=== PATIENT | female | born 1950 | race Caucasian/White ===

== ENCOUNTER 2022-12-29 17:58 | Outpatient (RCR) | payer MEDICARE, BC, SELFPAY | END 2023-01-23 23:59 | disposition home or self-care (01) | LOC: MM 17:58 | PROVIDERS: PCP Internal Medicine; Visit Provider Internal Medicine | DX: Z51.81 Encounter for therapeutic drug level monitoring (principal); Z79.01 Long term (current) use of anticoagulants; I48.91 Unspecified atrial fibrillation | CPT/HCPCS: 85610; G0463 ==

== ENCOUNTER 2023-01-01 13:20 | Outpatient (OUT) | payer MEDICARE, BC, SELFPAY ==
--- NOTE | 2023-01-01 13:45 | PM.CN ---
Consult Note: HPI Data of Consult Patient: known to practice within the last 3 years Consult date: 01/01/23 Requesting Physician: TRAVIS NELSON NP Primary Care Provider: CASSANDRA KING Consult Narrative Reason for consult: knee pain Narrative: Patient is here for f/u of bilat durolane injections done on 12/16/22. She received 10% relief of pain but increased function. No new sensorimotor sx or new bowel or bladder issues. Medication regimen is controlling pain and assisting with ability to complete ADLs. We discussed the GNB procedure. She would like to further research this at home and call if wanting to schedule. She does not want ortho referral at this time d/t not wanting surgery. cc:: CC: TRAVIS NELSON NP Review of Systems ROS Status of ROS 10 or more systems reviewed and unremarkable except as noted in history and below Musculoskeletal Reports: extremity pain Exam Constitutional Documenting provider has reviewed patient's vital signs: yes Common normals: no apparent distress, oriented x3, healthy appearing, alert and well nourished General appearance: cooperative, comfortable and well developed Orientation/consciousness: Yes awake, Yes oriented to person, Yes oriented to place and Yes oriented to time HENMT Common normals: normocephalic, nasal mucous membranes and turbinates normal and moist oral mucous membranes Respiratory Common normals: normal respiratory effort, no retractions and no use of accessory muscles Effort & inspection: able to speak in complete sentences and symmetric chest movement Extremity Common normals: normal to inspection, normal capillary refill and no pedal edema Other: bilat knee enlargement with crepitus and pain with ROM muscle strength 5/5 bilat with intact sensation bilat LE Assessment and Plan Assessment and Plan (1) Knee osteoarthritis:
== END 2023-01-01 13:21 ==
LOC: PM 13:20
PROVIDERS: PCP Family Medicine; Visit Provider Nurse Practitioner
DX: M17.0 Bilateral primary osteoarthritis of knee (principal)
CPT/HCPCS: G0463

== ENCOUNTER 2023-01-28 15:32 | Outpatient (RCR) | payer MEDICARE, BC, SELFPAY | END 2023-02-23 16:48 | disposition home or self-care (01) | LOC: MM 15:32 | PROVIDERS: PCP Internal Medicine; Visit Provider Internal Medicine | DX: Z51.81 Encounter for therapeutic drug level monitoring (principal); Z79.01 Long term (current) use of anticoagulants; I48.91 Unspecified atrial fibrillation | CPT/HCPCS: 85610; G0463 ==

== ENCOUNTER 2023-02-24 09:01 | Outpatient (RCR) | payer MEDICARE, BC, SELFPAY | END 2023-03-26 17:19 | disposition home or self-care (01) | LOC: MM 09:01 | PROVIDERS: Visit Provider Internal Medicine | DX: Z51.81 Encounter for therapeutic drug level monitoring (principal); Z79.01 Long term (current) use of anticoagulants; I48.91 Unspecified atrial fibrillation | CPT/HCPCS: 85610; G0463 ==

== ENCOUNTER 2023-03-25 11:02 | Outpatient (OUT) | payer MEDICARE, BC, SELFPAY ==
--- NOTE | 2023-03-25 11:11 | PM.CN ---
Consult Note: HPI Data of Consult Patient: known to practice within the last 3 years Requesting Physician: Perla Oreilly NP Primary Care Provider: Non-Staff Physician, Consult Narrative Reason for consult: bilateral knee pain Narrative: Leslie Mathis a pleasant 72 year old female with a history of osteoarthritis of bilateral knees, previously benefitted from injection therapy with Dr Mendenhall but no longer effective, presents for follow up on bialteral knee pain. Previously discussed bilateral genicular nerve blocks and RFAs and would like to proceed with these procedures. cc:: CC: Perla Oreilly NP Review of Systems ROS Status of ROS 10 or more systems reviewed and unremarkable except as noted in history and below Musculoskeletal Reports: joint pain Meds Home Medications and Allergies Home Medications Medication Instructions Recorded Confirmed Type acetaminophen 500 mg tablet 500 mg PO BID PRN pain 01/01/23 01/01/23 History (Tylenol Extra Strength) ascorbic acid (vitamin C) 500 mg 500 mg PO DAILY 01/01/23 01/01/23 History tablet calcium 100 mg capsule mg PO 01/01/23 History carvedilol 12.5 mg tablet 12.5 mg PO BID 01/01/23 01/01/23 History diltiazem HCl 240 mg capsule,24 240 mg PO DAILY 01/01/23 01/01/23 History hr,extended release ferrous sulfate 325 mg (65 mg 325 mg PO DAILY 01/01/23 01/01/23 History iron) tablet (iron) furosemide 20 mg tablet (Lasix) 20 mg PO BID 01/01/23 01/01/23 History hydrocodone 5 mg-acetaminophen 325 1 tab PO BID 01/01/23 01/01/23 History mg tablet ibuprofen 800 mg tablet 800 mg PO TID 01/01/23 01/01/23 History metaxalone 800 mg tablet 800 mg PO TID 01/01/23 01/01/23 History metformin 500 mg tablet 500 mg PO DAILY 01/01/23 01/01/23 History paroxetine HCl 20 mg tablet 20 mg PO DAILY 01/01/23 01/01/23 History warfarin 5 mg tablet 5 mg PO DAILY 01/01/23 01/01/23 History Allergies Allergy/AdvReac Type Severity Reaction Status Date / Time Penicillins Allergy Verified 01/01/23 14:22 Exam Constitutional Documenting provider has reviewed patient's vital signs: yes Common normals: no apparent distress, oriented x3, healthy appearing, alert and well nourished General appearance: cooperative HENMT Common normals: normocephalic, hearing grossly normal bilaterally and moist oral mucous membranes Head and scalp: normocephalic Eye Common normals: PERRL Pupil: PERRL Neck & C-Spine Common normals: full ROM General: normal visual inspection Chest Common normals: inspection of chest normal Respiratory Common normals: normal respiratory effort, no retractions and no use of accessory muscles Back & Pelvis Thoracic spine/upper back: normal to inspection and thoracic ROM normal Lumbar spine/lower back: normal to inspection, pain with ROM and straight leg raise negative bilaterally Sacroiliac joints: SI joints normal Other: positive bilateral facet loading Extremity Common normals: no calf tenderness and no pedal edema Right lower extremity: knee joint (enlarged, pain with weight bearing, limited ROM, weakness) Left lower extremity: knee joint (enlarged, pain with weight bearing, limited ROM, weakness) Neuro Common normals: oriented x3, CN's II-XII intact bilaterally, moves all extremities, no focal motor deficits, no sensory deficits noted and deep tendon reflexes 2+ bilaterally Sensorium/orientation: alert Motor exam: no movement abnormalities noted and strength abnormal (4/5 in BLE) Psych Common normals: mental status grossly normal, thought process normal, cooperative, affect normal, speech normal and activity/motor behavior normal Speech: normal speech Thought process: normal thought process Results Additional Findings Additional findings: The patient has had over 3 months of moderate to severe bilateral knee pain with functional impairment and inadequate response to conservative care including NSAIDS (unless there are contraindication such as concurrent blood thinners), multiple oral or topical pain medications, and home exercise program/physical therapy.? Patient has completed >6 weeks of guided home exercise program and/or formal physical therapy program without relief of their symptoms.? The Oswestry Disability Index was completed, and the patient scored a 22%.? The patient noted the following:?? moderate pain, pain with lifting, pain that prevents her from standing for more than 30 minutes, pain that interferes with travel Assessment and Plan Assessment and Plan (1) Knee osteoarthritis: Assessment and Plan: history of bilateral knee injections with Dr Mendenhall stopping working We discussed the risks and benefits of the procedure with the patient, and we are NOT planning on using sedation as outlined in the guidelines from Medicare unless there is a documented reason that sedation would be strongly recommended.?? The procedure will be completed with fluoroscopic guidance.? (2) Muscle spasm: (3) Obesity: Assessment and Plan: The patient was counseled that proper dietary changes and consistent participation in a home exercise plan can lead to weight loss. Weight loss can help to improve functionality in patients with chronic pain.? Plan bilateral genicular nerve blocks under fluoroscopy, if provides >80% pain relief and functional improvement will proceed with thermal RFA PT for strengthening and bilateral knee pain, hoping for functional improvement and increase in strength in combination with procedure continue home exercise plan continue skelaxin 800mg 1/2 tab HS continue prn motrin use f/u after procedure
== END 2023-03-25 11:03 | disposition home or self-care (01) ==
LOC: PM 11:03
PROVIDERS: Visit Provider Nurse Practitioner
DX: M17.9 Osteoarthritis of knee, unspecified (principal)
CPT/HCPCS: G0463

== ENCOUNTER 2023-03-27 08:31 | Outpatient (RCR) | payer MEDICARE, BC, SELFPAY | END 2023-04-24 16:36 | disposition home or self-care (01) | LOC: MM 08:31 | PROVIDERS: PCP Family Medicine; Visit Provider Internal Medicine | DX: Z51.81 Encounter for therapeutic drug level monitoring (principal); Z79.01 Long term (current) use of anticoagulants; I48.91 Unspecified atrial fibrillation | CPT/HCPCS: 85610; G0463 ==

== ENCOUNTER 2023-03-27 12:37 | Outpatient (RCR) | payer MEDICARE, BC, SELFPAY | END 2023-04-21 13:50 | disposition home or self-care (01) | LOC: PT 12:37 | PROVIDERS: PCP Family Medicine; Visit Provider Anesthesiology | DX: M17.0 Bilateral primary osteoarthritis of knee (principal); R26.89 Other abnormalities of gait and mobility; R26.9 Unspecified abnormalities of gait and mobility | CPT/HCPCS: 97110; 97161 ==

== ENCOUNTER 2023-04-01 10:54 | Outpatient (OUT) | payer MEDICARE, BC, SELFPAY ==
--- NOTE | 2023-04-01 10:55 | MM_ITS ---
Patient: MESFIN LOPEZ Exam Date: 04/01/2023 : 1950 Gender:F Ordering : DR CASSANDRA KING M.D. Admission #: [id number] Family : Order #: [id number] CLICK HERE TO VIEW EXAM RADIOLOGY REPORT PROCEDURE: MM TOMOSYNTHESIS SCREENING BI COMPARISON: MG MAMM SCREEN 3D JACQUELINE CAD, 01/08/2022. MG MAMM SCREEN 3D JACQUELINE CAD, 10/09/2020. INDICATIONS: Screening mammogram Z12.31 Calculator Name NCI Breast Cancer Risk Assessment Tool 5 Year Breast Cancer Risk 3.80% Lifetime Breast Cancer Risk 10.20% Personal Breast Cancer No Personal Ovarian Cancer No Treatments None Family Cancers Mother with breast cancer at age ~80. LOCATION: [facility] BREAST COMPOSITION: Scattered areas fibroglandular density. FINDINGS: DIAGNOSTIC CATEGORY 1--NEGATIVE. NO CHANGE FROM COMPARISON ASSESSMENT. Scattered benign-appearing calcifications are present. Scattered benign-appearing lymph nodes are present. RIGHT BREAST: No significant suspicious finding. LEFT BREAST: No significant suspicious finding. RECOMMENDATIONS: ROUTINE MAMMOGRAM AND CLINICAL EVALUATION IN 12 MONTHS. PLEASE NOTE: A NORMAL MAMMOGRAM DOES NOT EXCLUDE THE POSSIBILITY OF BREAST CANCER. A CLINICALLY SUSPICIOUS PALPABLE LUMP SHOULD BE BIOPSIED. Dictated by: Terry Pro MD on 04/01/2023 at 11:57 Approved by: Terry Pro MD on 04/01/2023 at 11:58
== END 2023-04-01 10:55 | disposition home or self-care (01) ==
LOC: MAMMO 10:54
PROVIDERS: PCP Family Medicine; Visit Provider Family Medicine
DX: Z12.31 Encounter for screening mammogram for malignant neoplasm of breast (principal); Z80.3 Family history of malignant neoplasm of breast
CPT/HCPCS: 77063; 77067

== ENCOUNTER 2023-04-14 09:30 | Day surgery (SDC) | payer MEDICARE, BC, SELFPAY ==
[2023-04-14 09:58] LABS: INR 2.67; Prothrombin Time 26.8 sec (9.0-11.6)
[2023-04-14 10:30] VITALS: BP 122/82; PULSE 89; RESP 16; TEMP 36.1; O2SAT 97
[2023-04-14 11:19] VITALS: RESP 20
[2023-04-14 11:23] VITALS: BP 119/75; PULSE 76; O2SAT 93
[2023-04-14] MEDS: BUPIVACAINE HCL 0.25% PF 25 MG/10 ML VIAL 8 ML INJ (11:24)
[2023-04-14 11:25] VITALS: BP 126/68; PULSE 76; O2SAT 95
--- NOTE | 2023-04-14 11:34 | P.ON_ITS ---
Date of procedure: 04/14/23 Pre-op diagnosis: Bilateral knee osteoarthritis Post-op diagnosis: same as pre-op Procedure: Bilateral Genicular Nerve Block PREOPERATIVE DIAGNOSIS: Pain secondary to knee pain, osteoarthritis, osteoarthrosis/degenerative joint disease. POSTOPERATIVE DIAGNOSIS--the same. SOLUTION USED FOR INJECTION: Marcaine 0.25%. IMMEDIATE COMPLICATIONS: None. PROCEDURE: After informed consent was obtained from the patient, brought to the OR, placed in the supine position. Skin overlying the area was prepped and draped in sterile fashion. Subsequently, a 25 gauge spinal needle was inserted over the inferior medial genicular nerve. Landmarks were identified under fluoroscopy. Needle tip advanced until the desired location was achieved, at which point we ruled out intravascular or intraneural needle tip placement. 1 mL of solution was injected. This procedure was performed in a similar fashion at the superior medial and superior lateral branches of the genicular nerve. Throughout the procedure, no indication of intravascular or intraneural needle t ip placement or injection. Post procedurally, needle removed. Patient tolerated the procedure with no complications, transferred to the recovery room in stable condition. She will be discharged home after meeting criteria. Patient informed to keep a pain diary for the first two hours post procedurally. Anesthesia: Local Surgeon: Stacey Suarez Condition: stable
== END 2023-04-14 11:37 | disposition home or self-care (01) ==
LOC: SURGOUT 09:32
PROVIDERS: PCP Family Medicine; Visit Provider Anesthesiology Pain Medicine
DX: M17.0 Bilateral primary osteoarthritis of knee (principal); M25.561 Pain in right knee; M25.562 Pain in left knee; Z79.899 Other long term (current) drug therapy; Z79.84 Long term (current) use of oral hypoglycemic drugs; Z79.01 Long term (current) use of anticoagulants
CPT/HCPCS: 36415; 64454; 85610

== ENCOUNTER 2023-04-27 01:35 | Outpatient (RCR) | payer MEDICARE, BC, SELFPAY | END 2023-05-26 17:14 | disposition home or self-care (01) | LOC: MM 01:35 | PROVIDERS: PCP Family Medicine; Visit Provider Internal Medicine | DX: Z51.81 Encounter for therapeutic drug level monitoring (principal); Z79.01 Long term (current) use of anticoagulants; I48.91 Unspecified atrial fibrillation | CPT/HCPCS: 85610; G0463 ==

== ENCOUNTER 2023-05-06 10:26 | Outpatient (OUT) | payer MEDICARE, BC, SELFPAY ==
--- NOTE | 2023-05-06 10:50 | PM.CN ---
Consult Note: HPI Data of Consult Patient: known to practice within the last 3 years Requesting Physician: Perla Oreilly NP Primary Care Provider: CASSANDRA KING Consult Narrative Reason for consult: f/u Narrative: Leslie Mathis a pleasant 72 year old female presents for evaluation and management of chronic bilateral knee. Patient reports a history of fibromyalgia as well. Today rating pain 4/10 in bilateral knees. Recently underwent bilateral genicular nerve blocks with 100% pain relief and functional improvement immediately following and hours after the procedure. Patient has recently completed PT with mild benefit but continues to have pain and would like to discuss proceeding with thermal genicular RFA. Patient is on warfarin and is advised not to take NSAIDs, however she continues to use aleve advil and motrin. cc:: CC: Perla Oreilly NP Review of Systems ROS Status of ROS 10 or more systems reviewed and unremarkable except as noted in history and below Musculoskeletal Reports: joint pain (bilateral knees) Meds Home Medications and Allergies Home Medications Medication Instructions Recorded Confirmed Type acetaminophen 500 mg tablet 500 mg PO BID PRN pain 01/01/23 04/14/23 History (Tylenol Extra Strength) ascorbic acid (vitamin C) 500 mg 500 mg PO DAILY 01/01/23 04/14/23 History tablet calcium 100 mg capsule mg PO 01/01/23 History carvedilol 12.5 mg tablet 12.5 mg PO BID 01/01/23 04/14/23 History diltiazem HCl 240 mg capsule,24 240 mg PO DAILY 01/01/23 04/14/23 History hr,extended release ferrous sulfate 325 mg (65 mg 325 mg PO DAILY 01/01/23 04/14/23 History iron) tablet (iron) furosemide 20 mg tablet (Lasix) 20 mg PO BID 01/01/23 04/14/23 History ibuprofen 800 mg tablet 800 mg PO TID 01/01/23 04/14/23 History metaxalone 800 mg tablet 800 mg PO TID 01/01/23 04/14/23 History metformin 500 mg tablet 500 mg PO DAILY 01/01/23 04/14/23 History paroxetine HCl 20 mg tablet 20 mg PO DAILY 01/01/23 04/14/23 History warfarin 5 mg tablet 5 mg PO DAILY 01/01/23 04/14/23 History Allergies Allergy/AdvReac Type Severity Reaction Status Date / Time Penicillins Allergy Verified 04/14/23 10:35 Exam Constitutional Documenting provider has reviewed patient's vital signs: yes Common normals: no apparent distress, oriented x3, healthy appearing, alert and well nourished General appearance: cooperative HENMT Common normals: normocephalic, hearing grossly normal bilaterally and moist oral mucous membranes Head and scalp: normocephalic Eye Common normals: PERRL Pupil: PERRL Neck & C-Spine Common normals: full ROM General: normal visual inspection Chest Common normals: inspection of chest normal Respiratory Common normals: normal respiratory effort, no retractions and no use of accessory muscles Back & Pelvis Thoracic spine/upper back: normal to inspection and thoracic ROM normal Lumbar spine/lower back: normal to inspection, pain with ROM and straight leg raise negative bilaterally Sacroiliac joints: SI joints normal Other: positive bilateral facet loading Extremity Common normals: no calf tenderness and no pedal edema Right lower extremity: knee joint (enlarged, pain with weight bearing, limited ROM, weakness) Left lower extremity: knee joint (enlarged, pain with weight bearing, limited ROM, weakness) Neuro Common normals: oriented x3, CN's II-XII intact bilaterally, moves all extremities, no focal motor deficits, no sensory deficits noted and deep tendon reflexes 2+ bilaterally Sensorium/orientation: alert Motor exam: strength 5/5 throughout and no movement abnormalities noted Psych Common normals: mental status grossly normal, thought process normal, cooperative, affect normal, speech normal and activity/motor behavior normal Speech: normal speech Thought process: normal thought process Results Additional Findings Additional findings: I have checked an [place] report on this patient today and there are no aberrancies noted in the prescribing history.?? A drug screen was completed and reviewed within the last year, and if there has not been a drug screen completed we ordered one today to monitor higher risk, state monitored pain medication use. As part of providing excellent, safe, comprehensive care, the following was completed at our patient's visit: 1. A medication reconciliation and review to ensure accurate knowledge of current/active medications, including asking our patients to inform us about any [id number] medications or herbal remedies/nutritional supplements/alternative remedies. 2. A review to specifically ensure our patients have had annual screening for: elevated body mass index (BMI), tobacco use, screening for depression, and screening for unhealthy alcohol use. When screening is concerning, patients are provided with education and the specific recommendation to discuss the concerning health issue and treatment options with their primary care provider. Assessment and Plan Assessment and Plan (1) Knee osteoarthritis: Assessment and Plan: history of bilateral knee injections with Dr Mendenhall, stopped working completed PT with mild benefit We discussed the risks and benefits of the procedure with the patient, and we are NOT planning on using sedation as outlined in the guidelines from Medicare unless there is a documented reason that sedation would be strongly recommended.?? The procedure will be completed with fluoroscopic guidance.? (2) Muscle spasm: (3) Obesity: Assessment and Plan: The patient was counseled that proper dietary changes and consistent participation in a home exercise plan can lead to weight loss. Weight loss can help to improve functionality in patients with chronic pain.? Plan left then right thermal genicular RFA under fluoroscopy, patient had >80% pain relief and functional improvement after genicular nerve block continue home exercise plan continue skelaxin 800mg 1/2 tab HS stop paxil, start duloxetine 60mg HS f/u after procedure
== END 2023-05-06 10:27 | disposition home or self-care (01) ==
LOC: PM 10:26
PROVIDERS: PCP Family Medicine; Visit Provider Nurse Practitioner
DX: M17.0 Bilateral primary osteoarthritis of knee (principal); E66.9 Obesity, unspecified; M62.838 Other muscle spasm
CPT/HCPCS: G0463

== ENCOUNTER 2023-05-27 00:39 | Outpatient (RCR) | payer MEDICARE, BC, SELFPAY | END 2023-06-25 16:35 | disposition home or self-care (01) | LOC: MM 00:39 | PROVIDERS: PCP Family Medicine; Visit Provider Internal Medicine | DX: Z51.81 Encounter for therapeutic drug level monitoring (principal); Z79.01 Long term (current) use of anticoagulants; I48.91 Unspecified atrial fibrillation | CPT/HCPCS: 85610; G0463 ==

== ENCOUNTER 2023-06-02 10:17 | Day surgery (SDC) | payer MEDICARE, BC, SELFPAY ==
[2023-06-02 10:42] LABS: INR 1.25; Prothrombin Time 13.1 sec (9.0-11.6)
[2023-06-02 10:45] VITALS: BP 111/70; PULSE 83; RESP 14; TEMP 35.9; O2SAT 96
[2023-06-02 11:43] VITALS: PULSE 77; RESP 18; O2SAT 94
[2023-06-02] MEDS: BUPIVACAINE HCL 0.25% PF 25 MG/10 ML VIAL 3 ML INJ (11:43)
[2023-06-02] MEDS: LIDOCAINE HCL 2% 400 MG/20 ML MDV 10 ML INJ (11:43)
[2023-06-02] MEDS: METHYLPREDNISOLONE ACETATE 40 MG/ML VIAL INJ (11:43)
[2023-06-02 11:51] VITALS: BP 106/56; BP 112/58; PULSE 67; RESP 18; O2SAT 95
--- NOTE | 2023-06-02 12:30 | W.PM.PROCNOT ---
Date of procedure: 06/02/23 Pre-op diagnosis: Left knee osteoarthritis Post-op diagnosis: same as pre-op Procedure: Left knee genicular nerve Radiofrequency ablation PreOp diagnosis: pain secondary to include knee osteoarthritis Postop diagnosis same Under fluoroscopic guidance Rhizotomy was created using radio frequency ablation at 80?C for 90 seconds 1 to 2 lesions created at each site. Post lesioning injection of 2 mL each of 0.25% Marcaine and 2% lidocaine with Depo-Medrol 40mg. 0.5 to 1 mL injected at each site Anesthesia local 2% lidocaine for local anesthetic Timeout process compliant After informed consent obtained.Patient brought to the procedure room placed in the supine position skin overlying the area was prepped and draped in a sterile fashion using betadine. 25 gauge needle was used to create a skin wheal over each of the targeted areas utilizing 2% lidocaine. A rhizotomy needle with a 10 mm active tip was inserted over each of the anesthetized areas and directed towards each of the genicular nerves accomplished under fluoroscopic guidance. after encountering the same we had positive sensory stimulation, negative motor stimulation was noted. lesions were then created. Post lesioning, steroid solution was injected needles removed. Patient was transferred to recovery room in stable condition to be discharged home after meeting criteria. Anesthesia: Local Surgeon: Stacey Suarez Condition: stable
== END 2023-06-02 12:02 | disposition home or self-care (01) ==
LOC: SURGOUT 10:19
PROVIDERS: PCP Family Medicine; Visit Provider Anesthesiology Pain Medicine
DX: M17.12 Unilateral primary osteoarthritis, left knee (principal); M25.562 Pain in left knee; Z79.01 Long term (current) use of anticoagulants
CPT/HCPCS: 36415; 64624; 85610; J1030

== ENCOUNTER 2023-06-16 10:11 | Day surgery (SDC) | payer MEDICARE, BC, SELFPAY ==
[2023-06-16 10:41] LABS: INR 1.06; Prothrombin Time 11.2 sec (9.0-11.6)
[2023-06-16 11:36] VITALS: BP 152/85; PULSE 71; RESP 16; TEMP 36.2; O2SAT 97
[2023-06-16 13:03] VITALS: BP 133/87; PULSE 72; RESP 18; O2SAT 94
[2023-06-16] MEDS: BUPIVACAINE HCL 0.25% PF 25 MG/10 ML VIAL 4 ML INJ (13:04)
[2023-06-16] MEDS: LIDOCAINE HCL 2% 400 MG/20 ML MDV 11 ML INJ (13:04)
[2023-06-16] MEDS: METHYLPREDNISOLONE ACETATE 40 MG/ML VIAL INJ (13:04)
[2023-06-16 13:06] VITALS: BP 140/80; PULSE 73; RESP 18; O2SAT 95
--- NOTE | 2023-06-16 15:43 | W.PM.PROCNOT ---
Date of procedure: 06/16/23 Pre-op diagnosis: right knee osteoarthritis Post-op diagnosis: same as pre-op Procedure: Right knee genicular nerve Radiofrequency ablation PreOp diagnosis: pain secondary to include knee osteoarthritis Postop diagnosis same Under fluoroscopic guidance Rhizotomy was created using radio frequency ablation at 80?C for 90 seconds 1 to 2 lesions created at each site. Post lesioning injection of 2 mL each of 0.25% Marcaine and 2% lidocaine with Depo-Medrol 40mg. 0.5 to 1 mL injected at each site Anesthesia local 2% lidocaine for local anesthetic Timeout process compliant After informed consent obtained.Patient brought to the procedure room placed in the supine position skin overlying the area was prepped and draped in a sterile fashion using betadine. 25 gauge needle was used to create a skin wheal over each of the targeted areas utilizing 2% lidocaine. A rhizotomy needle with a 10 mm active tip was inserted over each of the anesthetized areas and directed towards each of the genicular nerves accomplished under fluoroscopic guidance. after encountering the same we had positive sensory stimulation, negative motor stimulation was noted. lesions were then created. Post lesioning, steroid solution was injected needles removed. Patient was transferred to recovery room in stable condition to be discharged home after meeting criteria. Anesthesia: Local Surgeon: Stacey Suarez Condition: stable
== END 2023-06-16 13:23 | disposition home or self-care (01) ==
LOC: SURGOUT 10:13
PROVIDERS: PCP Family Medicine; Visit Provider Anesthesiology Pain Medicine
DX: M17.11 Unilateral primary osteoarthritis, right knee (principal); Z79.01 Long term (current) use of anticoagulants; Z79.84 Long term (current) use of oral hypoglycemic drugs
CPT/HCPCS: 36415; 64624; 85610; J1030

== ENCOUNTER 2023-06-26 09:07 | Outpatient (RCR) | payer MEDICARE, BC, SELFPAY | END 2023-07-24 15:00 | disposition home or self-care (01) | LOC: MM 09:07 | PROVIDERS: PCP Family Medicine; Visit Provider Internal Medicine | DX: Z51.81 Encounter for therapeutic drug level monitoring (principal); Z79.01 Long term (current) use of anticoagulants; I48.91 Unspecified atrial fibrillation | CPT/HCPCS: 85610; G0463 ==

== ENCOUNTER 2023-07-16 10:52 | Outpatient (OUT) | payer MEDICARE, BC, SELFPAY ==
--- OUTSIDE RECORDS SUMMARY | 2023-07-16 10:55 | XMS_ITS | CCD ---
Author Name Unknown Address [address] 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 Name Role Phone PHYSICIAN, DEFAULT Unavailable Unavailable PHYSICIAN, DEFAULT Unavailable Unavailable ALLRED, KELLER Unavailable Unavailable CHRISTINELEONAEN Unavailable Unavailable ALLRED, KELLER Unavailable Unavailable CHRISTINELEONAEN Unavailable Unavailable CHRISTINE, DR TRUJILLO Primary Care Unavailable FAWWAAngel, BERNSTEIN H Attending Unavailable FAWWAAngel, BERNSTEIN H Admitting Unavailable CHRISTINE, DR TRUJILLO Primary Care Unavailable FAWWAAngel, BERNSTEIN H Attending Unavailable FAWWAAngel, BERNSTEIN H Admitting Unavailable CHRISTINE, DR TRUJILLO Primary Care Unavailable FAWWAAngel, BERNSTEIN H Attending Unavailable FAWWAD, BERNSTEIN H Admitting Unavailable LAKSHMIPATHY ., NARENDRANATH Admitting Li vailable LAKSHMIPATHY ., MARTINAATH Consulting Li vailable CHRISTINE, DR TRUJILLO Primary Care Unavailable LAKSHMIPATHY ., MARTINAATH Attending Li vailable CHRISTINE, DR TRUJILLO Primary Care Unavailable FAWWAAngel, BERNSTEIN H Attending Unavailable FAWWAD, BERNSTEIN H Admitting Unavailable LAKSHMIPATHY ., NARENDCARMENATH Attending Li vailable LAKSHMIPATHY ., SCARLETENDCARMENATH Admitting Li vailable CHRISTINE, DR TRUJILLO Primary Care Unavailable CHRISTINE, DR TRUJILLO Primary Care Unavailable FAWWAAngel, BERNSTEIN H Attending Unavailable FAWWAD, BERNSTEIN H Admitting Unavailable CHRISTINE, DR TRUJILLO Primary Care Unavailable FAWWAAngel, BERNSTEIN H Attending Unavailable FAWWAD, BERNSTEIN H Admitting Unavailable CHRISTINE, DR TRUJILLO Primary Care Unavailable FAWWAAngel, BERNSTEIN H Attending Unavailable FAWWAD, BERNSTEIN H Admitting Unavailable FAWWAD, BERNSTEIN H Attending Unavailable FAWWAD, BERNSTEIN H Admitting Unavailable CHRISTINE, DR TRUJILLO Primary Care Unavailable FAWWAD, BERNSTEIN H Attending Unavailable FAWWAD, BERNSTEIN H Admitting Unavailable CHRISTINE, DR TRUJILLO Primary Care Unavailable FAWWAD, BERNSTEIN H Attending Unavailable FAWWAD, BERNSTEIN H Admitting Unavailable CHRISTINE, DR TRUJILLO Primary Care Unavailable FAWWAD, BERNSTEIN H Consulting Unavailable FAWWAD, BERNSTEIN H Attending Unavailable CHRISTINE, DR TRUJILLO Primary Care Unavailable FAWWAD, BERNSTEIN H Admitting Unavailable CHRISTINE, DR TRUJILLO Primary Care Unavailable CHRISTINE, DR TRUJILLO Consulting Unavailable CHRISTINE, DR TRUJILLO Attending Unavailable CHRISTINE, DR TRUJILLO Admitting Unavailable CHRISTINE, DR TRUJILLO Primary Care Unavailable CHRISTINE, DR TRUJILLO Consulting Unavailable CHRISTINE, DR TRUJILLO Attending Unavailable CHRISTINE, DR TRUJILLO Admitting Unavailable CHRISTINE, DR TRUJILLO Primary Care Unavailable CHRISTINE, DR TRUJILLO Consulting Unavailable CHRISTINE, DR TRUJILLO Attending Unavailable CHRISTINE, DR TRUJILLO Admitting Unavailable WEST, DR RADHA Hills Consulting Unavailable ZIEBER, DR CINTHYA Owens Consulting Unavailable LAKSHMIPATHY ., NARENDRANATH Admitting Li vailable CHRISTINE, DR TRUJILLO Primary Care Unavailable LAKSHMIPATHY ., NARENDRANATH Consulting Li vailable LAKSHMIPATHY ., NARENDRANATH Attending Li vailable Allergies Allergy Classification Reported Allergen(s) Allergy Type Date of Onset Reaction(s) Facility (2 sources) Penicillins Drug allergy (disorder) 07-12-2016 [facility] Rep[facility] Problems Active Problems Problem Classification Problem Date Documented Date Episodic/Chronic Asthma (1 source) Unspecified asthma, uncomplicated; Translations: [UNSPECIFIED ASTHMA UNCOMPLICATED] Onset: 12-18-2022 Chronic Cardiac dysrhythmias (5 sources) Unspecified atrial fibrillation; Translations: [UNSPECIFIED ATRIAL FIBRILLATION] Onset: 10-27-2022 Chronic Cardiac dysrhythmias (1 source) Cardiac dysrhythmias Onset: 02-08-2018 Deficiency and other anemia (4 sources) Iron deficiency anemia secondary to blood loss (chronic); Translations: [IRON DEFIC ANEMIA SEC BLD LOSS CHRN] Onset: 05-22-2022 Chronic Essential hypertension (1 source) Essential (primary) hypertension; Translations: [ESSENTIAL PRIMARY HYPERTENSION] Onset: 12-18-2022 Chronic Menopausal disorders (4 sources) Other primary ovarian failure; Translations: [OTHER PRIMARY OVARIAN FAILURE] Onset: 01-08-2022 Chronic Osteoarthritis (5 sources) Unilateral primary osteoarthritis, right knee; Translations: [Bilateral primary osteoarthritis of knee] Onset: 12-06-2022 Chronic Other aftercare (5 sources) Encounter for therapeutic drug level monitoring; Translations: [ENC THERAPEUTC DRUG LEVL MONITORING] Onset: 11-22-2022 Episodic Other aftercare (1 source) correction (current) use of anticoagulants; Translations: [RESIDENTIAL CURRNT USE ANTICOAGULANTS] Onset: 12-24-2022 Episodic Other connective tissue disease (1 source) Fibromyalgia; Translations: [FIBROMYALGIA] Onset: 12-18-2022 Episodic Other lower respiratory disease (1 source) Dyspnea, unspecified; Translations: [Dyspnea, unspecified] Onset: 02-08-2018 Episodic Other nervous system disorders (1 source) Other chronic pain; Translations: [OTHER CHRONIC PAIN] Onset: 12-06-2022 Chronic Other non-traumatic joint disorders (4 sources) Pain in left knee; Translations: [PAIN IN LEFT KNEE] Onset: 12-02-2022 Episodic Other non-traumatic joint disorders (1 source) Pain in right knee; Translations: [PAIN IN RIGHT KNEE] Onset: 12-06-2022 Episodic Residual codes; unclassified (1 source) Sleep apnea, unspecified; Translations: [SLEEP APNEA UNSPECIFIED] Onset: 12-18-2022 Chronic Unclassified (2 sources) Dyspnea, unspecified / R06.00(ICD-9) Onset: 02-08-2018 Unclassified (1 source) Tachycardia, unspecified / R00.0(ICD-9) Onset: 02-08-2018 Past or Other Problems Problem Classification Problem Date Documented Da te Episodic/Chronic Other bone disease and musculoskeletal deformities (1 source) Other specified disorders of bone density and structure, left thigh; Translations: [OTH D/O BONE DEN STRUCT LT THIGH] Onset: 01-23-2022 Episodic Other screening for suspected conditions (not mental disorders or infectious disease) (1 source) Encounter for screening mammogram for malignant neoplasm of breast; Translations: [ENC SCR MAMMO MALIG NEOPLASM BREAST] Onset: 06-30-2022 Episodic Residual codes; unclassified (1 source) Family history of malignant neoplasm of breast; Translations: [FAMILY HX MALIG NEOPLASM OF BREAST] Onset: 01-23-2022 Episodic Results Test Name Value Interpretation Reference Range Facility PROTIMEon 12-16-2022 INR Coag (PPP) [Relative time] 1.02 {INR} Normal [facility] Comment on above: Performed By: #### P T #### [facility] [address] [place] [address] Dr. Justyn Quintanilla INR GUIDELINES SEE BELOW Normal [facility] Comment on above: Result Comment: THAI RED INR: 2.0 - 3.0 CONDITIONS NOT LISTED BELOW 2.5 - 3.5 FOR PROSTHETIC HEART VALVE REPLACEMENT 2.5 - 3.5 RECURRENT THROMBOSIS Performed By: #### P T #### [facility] [address] [place] [address] Dr. Justyn Quintanilla PT Coag (PPP) [Time] 10.8 s Normal 9.0-11.6 [facility] Comment on above: Performed By: #### P T #### [facility] [address] [place] [address] Dr. Justyn Quintanilla CBC AUTO DIFFon 05-22-2022 BASO # 0.0 103/ul Normal 0.0-0.1 [facility] Comment on above: Performed By: #### C BC #### [facility] [address] [place] [address] Dr. Justyn Quintanilla Basophils/100 WBC (Bld) 0.5 % Normal 0.2-2.0 [facility] Comment on above: Performed By: #### C BC #### [facility] [address] [place] [address] Dr. Justyn Quintanilla EO # 0.1 103/ul Normal 0.0-0.7 [facility] Comment on above: Performed By: #### C BC #### [facility] [address] [place] [address] Dr. Justyn Quintanilla Eosinophils/100 WBC (Bld) 2.9 % Normal 0.9-7.0 [facility] Comment on above: Performed By: #### C BC #### [facility] [address] [place] [address] Dr. Justyn Quintanilla Erythrocyte distribution width (RBC) [Ratio] 20.7 % Critically high 11.0-15.0 [facility] Comment on above: Performed By: #### C BC #### [facility] [address] [place] [address] Dr. Justyn Quintanilla Hematocrit (Bld) [Volume fraction] 29.7 % Critically low 36.0-48.0 [facility] Comment on above: Performed By: #### C BC #### [facility] [address] [place] [address] Dr. Justyn Quintanilla Hemoglobin (Bld) [Mass/Vol] 9.0 g/dL Critically low 12.0-16.0 [facility] Comment on above: Performed By: #### C BC #### [facility] [address] [place] [address] Dr. Justyn Quintanilla IG # 0.01 10e3/ul Normal 0.00-0.03 [facility] Comment on above: Performed By: #### C BC #### [facility] [address] [place] [address] Dr. Justyn Quintanilla IG % 0.2 % Normal 0.0-0.5 [facility] Comment on above: Performed By: #### C BC #### [facility] [address] [place] [address] Dr. Justyn Quintanilla LYMPH # 1.2 103/ul Normal 1.2-3.8 [facility] Comment on above: Performed By: #### C BC #### [facility] [address] [place] [address] Dr. Justyn Quintanilla Lymphocytes/100 WBC (Bld) 29.0 % Normal 20.5-60.0 [facility] Comment on above: Performed By: #### C BC #### [facility] [address] [place] [address] Dr. Justyn Quintanilla MANUAL DIFF REQ NO Normal [facility] Comment on above: Performed By: #### C BC #### [facility] [address] [place] [address] Dr. Justyn Quintanilla MCH (RBC) [Entitic mass] 28.6 pg Normal 26.7-34.0 [facility] Comment on above: Performed By: #### C BC #### [facility] [address] [place] [address] Dr. Justyn Quintanilla MCHC (RBC) [Mass/Vol] 30.3 g/dL Normal 29.9-35.2 [facility] Comment on above: Performed By: #### C BC #### [facility] [address] [place] [address] Dr. Justyn Quintanilla MCV (RBC) [Entitic vol] 94.3 fL Normal 81.0-99.0 [facility] Comment on above: Performed By: #### C BC #### [facility] [address] [place] [address] Dr. Justyn Quintanilla MONO # 0.4 103/ul Normal 0.3-0.8 [facility] Comment on above: Performed By: #### C BC #### [facility] [address] [place] [address] Dr. Justyn Quintanilla Monocytes/100 WBC (Bld) 9.8 % Normal 1.7-12.0 [facility] Comment on above: Performed By: #### C BC #### [facility] [address] [place] [address] Dr. Justyn Quintanilla NEUT # 2.3 103/ul Normal 1.4-6.5 [facility] Comment on above: Performed By: #### C BC #### [facility] [address] [place] [address] Dr. Justyn Quintanilla Neutrophils/100 WBC (Bld) 57.6 % Normal 43.0-75.0 [facility] Comment on above: Performed By: #### C BC #### [facility] [address] [place] [address] Dr. Justyn Quintanilla Platelet mean volume (Bld) [Entitic vol] 9.2 fL Critically low 9.5-13.5 [facility] Comment on above: Performed By: #### C BC #### [facility] [address] [address] [address] Justyn Quintanilla PLT 361 103/ul Normal 150-450 [facility] Comment on above: Performed By: #### C BC #### [facility] [address] [address] [address] Justyn Quintanilla RBC 3.15 106/ul Critically low 4.20-5.40 [facility] Comment on above: Performed By: #### C BC #### [facility] [id number] Justyn Quintanilla WBC 4.1 103/ul Normal 4.0-11.0 [facility] Comment on above: Performed By: #### C BC #### [facility] [address] [address] [address] Justyn Quintanilla MG MAMM SCREEN 3D JACQUELINE CADon 01-08-2022 MG MAMM SCREEN 3D JACQUELINE CAD Patient: MESFIN LOPEZ Exam Date: 01/08/2022 : 1950 Gender:F Ordering : DR VENECIA KING M.D. Admission #: [id number] Family : Order #: [id number] CLICK HERE TO VIEW EXAM RADIOLOGY REPORT PROCEDURE: MAMMOGRAM SCREENING 3D BILATERAL CAD COMPARISON: MG MAMM JACQUELINE SCRN W CAD DIG, 10/29/2015. MG MAMM SCREEN JACQUELINE W CAD, 04/26/2019. INDICATIONS: Screening mammography Calculator Name NCI Breast Cancer Risk Assessment Tool 5 Year Breast Cancer Risk 3.70% Lifetime Breast Cancer Risk 10.60% Personal Breast Cancer No Personal Ovarian Cancer No Treatments None Family Cancers Mother with breast cancer at age 80. LOCATION: [facility] BREAST COMPOSITION: Scattered areas fibroglandular density. FINDINGS: DIAGNOSTIC CATEGORY 1--NEGATIVE. NO CHANGE FROM COMPARISON ASSESSMENT. Scattered benign-appearing calcifications are present. Scattered benign-appearing lymph nodes are present. RIGHT BREAST: No significant suspicious finding. LEFT BREAST: No significant suspicious finding. RECOMMENDATIONS: ROUTINE MAMMOGRAM AND CLINICAL EVALUATION IN 12 MONTHS. PLEASE NOTE: A NORMAL MAMMOGRAM DOES NOT EXCLUDE THE POSSIBILITY OF BREAST CANCER. A CLINICALLY SUSPICIOUS PALPABLE LUMP SHOULD BE BIOPSIED. Dictated by: Radha Pro MD on 01/23/2022 at 08:04 Approved by: Radha Pro MD on 01/23/2022 at 08:05 Normal [facility] XR DEXA BONE DENSITYon 01-08 XR DEXA BONE DENSITY EXAMINATION: XR DEXA BONE DENSITY, 01/08/2022 10:20 AM EDT HISTORY: Primary ovarian failure COMPARISON: DEXA bone densitometry 04/26/2019 TECHNIQUE: Dual-energy X-ray absorptiometry (DEXA) bone density study performed for the axial skeleton. FINDINGS: SPINE ANALYSIS: Average bone mineral density is 1.165 g/cm2. T-score (standard deviation relative to young adult mean): -0.1 . Not previously evaluated. HIP ANALYSIS: Lowest bone mineral density is within the left femoral neck, 0.765 g/cm2. T-score (standard deviation relative to young adult mean): -2.0 . -2.6% change since prior study. IMPRESSION: [employer] Organization Classification: Osteopenia - Moderate Fracture Risk Electronically authenticated by: CINTHYA PHAM Date: 2022-01-08 18:00 [facility] Complete Blood Count with Au to Diffon 12-17-2021 Basophils (Bld) [#/Vol] 0.05 10*3/uL Normal 0.00-0.20 [facility] Comment on above: Performed By: #### V ITD, LIPD, smear, CBCAD, CMP #### [facility] [address], [place] [id number] Basophils/100 WBC (Bld) 1.3 % Normal [facility] Comment on above: Performed By: #### V ITD, LIPD, smear, CBCAD, CMP #### [facility] [address], [place] [id number] Eosinophils (Bld) [#/Vol] 0.08 10*3/uL Normal 0.02-0.50 [facility] [facility] Comment on above: Performed By: #### V ITD, LIPD, smear, CBCAD, CMP #### [facility] [address], [place] [id number] Eosinophils/100 WBC (Bld) 2.1 % Normal [facility] [facility] Comment on above: Performed By: #### V ITD, LIPD, smear, CBCAD, CMP #### [facility] [address], [place] [id number] Erythrocyte distribution width (RBC) [Ratio] 17.8 % High 11.0-15.0 [facility] [facility] Comment on above: Performed By: #### V ITD, LIPD, smear, CBCAD, CMP #### [facility] [address], [place] [id number] Hematocrit (Bld) [Volume fraction] 30.4 % Low 35.0-47.0 [facility] [facility] Comment on above: Performed By: #### V ITD, LIPD, smear, CBCAD, CMP #### [facility] [address], [place] [id number] Hemoglobin (Bld) [Mass/Vol] 8.7 g/dL Low 11.6-15.5 [facility] [facility] Comment on above: Performed By: #### V ITD, LIPD, smear, CBCAD, CMP #### [facility] [address], [place] [id number] Lymphocytes (Bld) [#/Vol] 1.0 10*3/uL Normal 0.9-3.9 [facility] [employer] [facility] Comment on above: Performed By: #### V ITD, LIPD, smear, CBCAD, CMP #### [facility] [address], [place] [id number] Lymphocytes/100 WBC (Bld) 25.1 % Normal [facility] [employer] [facility] Comment on above: Performed By: #### V ITD, LIPD, smear, CBCAD, CMP #### [facility] [address], [place] [id number] MCH (RBC) [Entitic mass] 21.1 pg Low 27.0-33.0 [facility] [facility] Comment on above: Performed By: #### V ITD, LIPD, smear, CBCAD, CMP #### [facility] [address], [place] [id number] MCHC (RBC) [Mass/Vol] 28.6 g/dL Low 32.0-36.0 [facility] [employer] [facility] Comment on above: Performed By: #### V ITD, LIPD, smear, CBCAD, CMP #### [facility] [address], [place] [id number] MCV (RBC) [Entitic vol] 74 fL Low 80-100 [place] [employer] [facility] Comment on above: Performed By: #### V ITD, LIPD, smear, CBCAD, CMP #### [facility] [address], [place] [id number] Monocytes (Bld) [#/Vol] 0.4 10*3/uL Normal 0.2-0.9 [facility] Comment on above: Performed By: #### V ITD, LIPD, smear, CBCAD, CMP #### [facility] [address], [place] [id number] Monocytes/100 WBC (Bld) 9.9 % Normal [facility] Comment on above: Performed By: #### V ITD, LIPD, smear, CBCAD, CMP #### [facility] [address], [place] [id number] Neutrophils (Bld) [#/Vol] 2.4 10*3/uL Normal 1.5-7.8 [facility] Comment on above: Performed By: #### V ITD, LIPD, smear, CBCAD, CMP #### [facility] [address], [place] [id number] Neutrophils/100 WBC (Bld) 61.3 % Normal [facility] Comment on above: Performed By: #### V ITD, LIPD, smear, CBCAD, CMP #### [facility] [address], [place] [id number] Platelet mean volume (Bld) [Entitic vol] 10.00 fL Normal 7.50-12.50 [facility] Comment on above: Performed By: #### V ITD, LIPD, smear, CBCAD, CMP #### [facility] [address], [place] [id number] Platelets (Bld) [#/Vol] 255 10*3/uL Normal 140-400 [facility] Comment on above: Performed By: #### V ITD, LIPD, smear, CBCAD, CMP #### [facility] [address], [place] [id number] RBC (Bld) [#/Vol] 4.13 10*6/uL Normal 3.90-5.20 [facility] Comment on above: Performed By: #### V ITD, LIPD, smear, CBCAD, CMP #### [facility] [address], [place] [id number] RDW-SD 46.7 fL Normal 37.0-50.0 [facility] Comment on above: Performed By: #### V ITD, LIPD, smear, CBCAD, CMP #### [facility] [address], [place] [id number] REFLEX Smear Review Normal [facility] Comment on above: Performed By: #### V ITD, LIPD, smear, CBCAD, CMP #### [facility] [address], [place] [id number] WBC (Bld) [#/Vol] 3.8 10*3/uL Normal 3.8-11.0 [facility] [employer] [facility] Comment on above: Performed By: #### V ITD, LIPD, smear, CBCAD, CMP #### [facility] [address], [place] [id number] Comprehensive Metabolic Pane [facility] 12-17-2021 Albumin [Mass/Vol] 4.1 g/dL Normal 3.6-5.1 [facility] [employer] [facility] Comment on above: Performed By: #### V ITD, LIPD, smear, CBCAD, CMP #### [facility] [address], [place] [id number] Albumin/Globulin [Mass ratio] 2.0 {ratio} Normal 1.0-2.5 [facility] Comment on above: Performed By: #### V ITD, LIPD, smear, CBCAD, CMP #### [facility] [address], [place] [id number] ALP [Catalytic activity/Vol] 85 U/L Normal 35-119 [facility] [facility] Comment on above: Performed By: #### V ITD, LIPD, smear, CBCAD, CMP #### [facility] [address], [place] [id number] ALT [Catalytic activity/Vol] 12 U/L Normal 6-33 [facility] [facility] Comment on above: Result Comment: 06/26 Female reference range changed. Performed By: #### V ITD, LIPD, smear, CBCAD, CMP #### [facility] [address], [place] [id number] Anion gap [Moles/Vol] 15 mmol/L Normal 12-20 [facility] Comment on above: Result Comment: Efflana ctive 08/01/2019 reference range changed. Performed By: #### V ITD, LIPD, smear, CBCAD, CMP #### [facility] [address], [place] [id number] AST [Catalytic activity/Vol] 18 U/L Normal 9-34 [facility] Comment on above: Performed By: #### V ITD, LIPD, smear, CBCAD, CMP #### [facility] [address], [place] [id number] Bilirubin [Mass/Vol] 0.47 mg/dL Normal 0.30-1.20 [facility] Comment on above: Performed By: #### V ITD, LIPD, smear, CBCAD, CMP #### [facility] [address], [place] [id number] BUN/CREA 28 Ratio High 6-22 [facility] Comment on above: Performed By: #### V ITD, LIPD, smear, CBCAD, CMP #### [facility] [address], [place] [id number] Calcium [Mass/Vol] 9.3 mg/dL Normal 8.6-10.2 [facility] Comment on above: Performed By: #### V ITD, LIPD, smear, CBCAD, CMP #### [facility] [address], [place] [id number] Chloride [Moles/Vol] 103 mmol/L Normal 98-107 [facility] Comment on above: Performed By: #### V ITD, LIPD, smear, CBCAD, CMP #### [facility] [address], [place] [id number] CO2 [Moles/Vol] 27 mmol/L Normal 20-31 [facility] Comment on above: Performed By: #### V ITD, LIPD, smear, CBCAD, CMP #### [facility] [address] [facility] [place] [id number] Creatinine [Mass/Vol] 0.6 mg/dL Normal 0.6-1.4 [place] [employer] [facility] Comment on above: Performed By: #### V ITD, LIPD, smear, CBCAD, CMP #### [facility] [address], [place] [id number] eGFRAA 122 mL/min/1.73m2 Normal >60 [facility] [employer] [facility] Comment on above: Performed By: #### V ITD, LIPD, smear, CBCAD, CMP #### [facility] [address], [place] [id number] eGFRNAA 101 mL/min/1.73m2 Normal >60 [facility] [employer] [facility] Comment on above: Performed By: #### V ITD, LIPD, smear, CBCAD, CMP #### [facility] [address], [place] [id number] Globulin (S) [Mass/Vol] 2.1 g/dL Normal 1.9-3.7 [facility] [facility] Comment on above: Performed By: #### V ITD, LIPD, smear, CBCAD, CMP #### [facility] [address], [place] [id number] Glucose [Mass/Vol] 100 mg/dL High 65-99 [facility] [employer] [facility] Comment on above: Result Comment: For FASTING Glucose --- ADA reference ranges: Normal 65-99 mg/dl Prediabetes 100-125 Diabetes >/= 126 Performed By: #### V ITD, LIPD, smear, CBCAD, CMP #### [facility] [address], [place] [id number] Potassium [Moles/Vol] 4.8 mmol/L Normal 3.5-5.5 [facility] [facility] Comment on above: Performed By: #### V ITD, LIPD, smear, CBCAD, CMP #### [facility] [address], [place] [id number] Protein [Mass/Vol] 6.2 g/dL Normal 6.1-8.1 [facility] [employer] [facility] Comment on above: Performed By: #### V ITD, LIPD, smear, CBCAD, CMP #### [facility] [address], [place] [id number] Sodium [Moles/Vol] 140 mmol/L Normal 135-146 [place] [employer] [facility] Comment on above: Performed By: #### V ITD, LIPD, smear, CBCAD, CMP #### [facility] [address], [place] [id number] Urea nitrogen [Mass/Vol] 16 mg/dL Normal 7-25 [facility] Comment on above: Performed By: #### V ITD, LIPD, smear, CBCAD, CMP #### [facility] [address], [place] [id number] Hemoglobin A1Con 12-17-2021 EAG 122.63 Normal [facility] Comment on above: Performed By: #### A 1C #### [facility] [address], [place] [id number] HbA1c (Bld) [Mass fraction] 5.9 % Normal 4.0-6.0 [facility] Comment on above: Performed By: #### A 1C #### [facility] [address], [place] [id number] Lipid Panelon 12-17-2021 Cholesterol [Mass/Vol] 178 mg/dL Normal 125-200 [facility] Comment on above: Result Comment: Low risk < 200mg/dL Borderline risk 201-239 mg/dl High risk > or equal to 240 Performed By: #### V ITD, LIPD, smear, CBCAD, CMP #### [facility] [address], [place] [id number] Cholesterol in HDL [Mass/Vol] 54 mg/dL Normal >40 [facility] Comment on above: Result Comment: High Cardiovascular Risk HDL <40 mg/dL Low Cardiovascular Risk HDL > or equal to 60 mg/dl Performed By: #### V ITD, LIPD, smear, CBCAD, CMP #### [facility] [address], [place] [id number] Cholesterol in LDL [Mass/Vol] 111 mg/dL Normal [facility] Comment on above: Result Comment: LDL ATP III CLASSIFICATION LDL less than 100 mg/dl Optimal LDL 100-129 mg/dl Near or above optimal LDL 130-159 Borderline high LDL 160-189 High LDL greater than 189 mg/dl Very High Performed By: #### V ITD, LIPD, smear, CBCAD, CMP #### [facility] [address], [place] [id number] Cholesterol in VLDL [Mass/Vol] 13 mg/dL Normal [facility] Comment on above: Performed By: #### V ITD, LIPD, smear, CBCAD, CMP #### [facility] [address], [place] [id number] Cholesterol.total/C holesterol in HDL [Mass ratio] 3 {ratio} Normal [facility] Comment on above: Performed By: #### V ITD, LIPD, smear, CBCAD, CMP #### [facility] [address], [place] [id number] Triglyceride [Mass/Vol] 67 mg/dL Normal 30-150 [facility] Comment on above: Result Comment: TRIG ATPIII CLASSIFICATIONS TRIG less than 150 mg/dl Normal TRIG 150-199 mg/dl Borderline High TRIG 200-500 mg/dl High TRIG greather than 500 mg/dl Very High Performed By: #### V ITD, LIPD, smear, CBCAD, CMP #### [facility] [address], [place] [id number] Smear Reviewon 12-17-2021 PLT EST Adequate Normal [facility] Comment on above: Performed By: #### V ITD, LIPD, smear, CBCAD, CMP #### [facility] [address], [place] [id number] RBC morphology finding Nom (Bld) RBC morphology review confirms RBC indices Normal [facility] Comment on above: Performed By: #### V ITD, LIPD, smear, CBCAD, CMP #### [facility] [address], [place] [id number] Vitamin D 25-OHon 12-17-2021 VIT D 25 OH 48 ng/ml Normal >29 [facility] Comment on above: Result Comment: Miladys min D Status Deficiency <20 ng/mL Insufficiency 20-29 ng/mL Optimal 30-100 ng/mL Possible Toxicity >=150 ng/mL Performed By: #### V ITD, LIPD, smear, CBCAD, CMP #### [facility] [address], [place] [id number] Encounters Encounter Date Encounter Type Care Provider Facility Start: 01-01-2023 ambulatory JES YOUNG . Facility: Start: 12-16-2022 End: 12-16-2022 ambulatory JES PASTORPATHY . Facility:[facility] Start: 12-02-2022 End: 12-03-2022 ambulatory JES PASTORPATHY . Facility:[facility] Start: 11-24-2022 End: 12-24-[address] VENECIA KING Facility:[facility] Start: 10-27-2022 End: 11-21-[address] VENECIA KING Facility:[facility] Start: 09-24-2022 End: 10-24-[address] VENECIA KING Facility:[facility] Start: 08-27-2022 End: 09-24-[address] VENECIA KING Facility:[facility] Start: 07-28-2022 End: 08-27-[address] VENECIA KING Facility:[facility] Start: 06-26-2022 End: 07-27-[address] VENECIA KING Facility:[facility] Start: 05-27-2022 End: 06-25-[address] VENECIA KING Facility:[facility] Start: 05-22-2022 End: 05-23-[address] VENECIA KING Facility:[facility] Start: 04-27-2022 End: 05-26-2022 ambulatory Mina AVI Facility:[facility] Start: 03-27-2022 End: 04-26-2022 ambulatory SHAIKH Mina CÁRDENAS Facility:[facility] Start: 03-18-2022 End: 03-25-[address] VENECIA KING Facility:[facility] Start: 02-24-2022 End: 03-26-2022 ambulatory BERNSTEIN Mina AVI Facility:[facility] Start: 01-24-2022 End: 02-21-2022 ambulatory SHAIKH Mina CÁRDENAS Facility:[facility] Start: 01-08-2022 End: 01-09-[address] VENECIA KING Facility:[facility] Start: 02-09-2018 Patient encounter KRISHNA PRATHERIM Fac ility:[id number] Start: 02-08-2018 Patient encounter KRISHNA PRATHERIM Fac ility:[id number] Start: 02-08-2018 Patient encounter Facil ity:[id number] Start: 11-27-2017 End: 05-05-2018 Ambulatory DEFAULT PHYSICIAN Facility:[facility] Payers Date Payer Category Payer Medicare [id number] 1958 Unknown [id number] 1950 Unknown [id number] 2.16.84 [id number] 1950 Unknown [id number] 2.16.84 0.1.875366.3.579.2.593 1950 Unknown [id number] 2.16.84 0.1.446308.3.579.2.593 1950 Unknown [id number] 2.16.84 0.1.540740.3.579.2.593 1950 Unknown [id number] 2.16.84 0.1.070112.3.579.2.593 1950 Unknown [id number] 2.16.84 0.1.691898.3.579.2.593 1950 Unknown [id number] 2.16.84 0.1.337380.3.579.2.593 1950 Unknown [id number] 2.16.84 0.1.137049.3.579.2.593 1950 Unknown [id number] 2.16.84 0.1.673233.3.579.2.593 1950 Unknown [id number] 2.16.84 0.1.706193.3.579.2.593 1950 Unknown [id number] 2.16.84 0.1.340775.3.579.2.593 1950 Unknown [id number] 2.16.84 0.1.562977.3.579.2.593 1950 Unknown [id number] 2.16.84 0.1.379575.3.579.2.593 1950 Unknown [id number] 2.16.84 0.1.575399.3.579.2.593 1950 Unknown [id number] 2.16.84 0.1.989825.3.579.2.593 1950 Unknown [id number] 2.16.84 0.1.101066.3.579.2.593 1950 Unknown [id number] 2.16.84 0.1.601928.3.579.2.593 Medicare [id number] Unknown Consultation note 12-02-2022 Note Date & Type Note Facility 12-02-2022 Note CONSULTATION CONSULTATION DATE: 12/02/2022 TO: Venecia King M.D. and Jess Mendenhall D.O. CHIEF COMPLAINT: Includes bilateral knee pain. HISTORY OF PRESENT ILLNESS: Review of systems, past medical/surgical history were obtained and documented on the health questionnaire and is available upon request. She is a 72-year-old female, reports having had a long standing history of bilateral knee pain for at least the last three years. She has, in the past, used ibuprofen 800 mg up to t.i.d. p.r.n. She has been using this on and off for at least the last three years. She has also undergone activity modification. Despite this, her pain has progressed to the point where it has altered her quality of life, level of functioning and sleep pattern. She has undergone corticosteroid injection into the knee joints, which she reports offered a tremendous reduction in pain symptoms. Despite the improvement in her symptoms, she still reports residual pain does alter her quality of life, level of functioning and, at times, her sleep pattern. She feels most comfortable in the semi-recumbent position. She has pain with any kind of weight bearing maneuvers. She describes stiffness around her knee joints, which seems to improve after ambulating a short distance; however, the pain is still persistent with weight bearing. She feels most comfortable in the semi-recumbent position. EXAM: Her examination is notable for patient having no clinical radiculopathy or myelopathy involving the lower extremities. She did have mild edema overlying both knee joints, more significantly on the left than the right side. She also had point tenderness overlying the lateral aspect of both knee joints. I could not appreciate any ligamental laxity, and there was a moderate amount of myofascial spasm involving the hamstring muscles bilaterally. She had a moderate amount of crepitus and no appreciable J sign. IMPRESSION: Our impression is patient appears to have chronic pain secondary to bilateral knee joint pain secondary to osteoarthrosis. She has failed conservative therapy with medication management, activity modification and corticosteroid injection. RECOMMENDATIONS: I recommend proceeding with Durolane injection into each knee joint under fluoroscopic guidance. I went over the details of the procedure with the patient. All her questions answered. She agrees to proceed with the outlined plan. As part of providing excellent, safe, comprehensive care, the following was completed at our patient's visit: 1. A medication reconciliation and review to ensure accurate knowledge of current/active medications, including asking our patients to inform us about any [id number] medications or herbal remedies/nutritional supplements/alternative remedies. 2. A review to specifically ensure our patients have had annual screening for: elevated body mass index (BMI, see intake chart for exact total), tobacco use, screening for depression, and screening for unhealthy alcohol use. When screening is concerning, patients are provided with education and the specific recommendation to discuss the concerning health issue and treatment options with their primary care provider. [facility] Summary Purpose Family History No Family History Records FoundNo Family History Records FoundNo Family History Records FoundNo Family History Records FoundNo Family History Records Found Advance Directives No Advanced Directives Records FoundNo Advanced Directives Records FoundNo Advanced Directives Records FoundNo Advanced Directives Records FoundNo Advanced Directives Records Found Additional Source Comments INFORMATION SOURCE (unrecogn ized section and content) DATE CREATED AUTHOR 01/14/2018 [facility] DATE CREATED AUTHOR AUTHOR'S ORGANIZ ATION 02/11/2018 [facility] DATE CREATED AUTHOR AUTHOR'S ORGANIZ ATION 02/11/2018 [facility] DATE CREATED AUTHOR AUTHOR'S ORGANIZ ATION 12/18/2021 [facility] DATE CREATED AUTHOR AUTHOR'S ORGANIZ ATION 01/02/2023 [facility] FOR RECORDS PERTAINING TO PATIENTS WHO ARE OR HAVE BEEN ENROLLED IN A CHEMICAL DEPENDENCY/SUBSTANCEABUSE PROGRAM, SOME INFORMATION MAY BE OMITTED. This clinical summary was aggregated from multiple sources. Caution should be exercised in using it in the provision of clinical care. This summary normalizes information from multiple sources, and as a consequence, information in this document may materially change the coding, format and clinical context of patient data. In addition, data may be omitted in some cases. CLINICAL DECISIONS SHOULD BE BASED ON THE PRIMARY CLINICAL RECORDS. [facility]. provides no warranty or guarantee of the accuracy or completeness of information in this document.
--- NOTE | 2023-07-16 11:35 | P.CN_ITS ---
Consult Note: HPI Data of Consult Patient: known to practice within the last 3 years Requesting Physician: Perla Oreilly NP Primary Care Provider: CASSANDRA KING Consult Narrative Reason for consult: f/u Narrative: Leslie Mathis a pleasant 72 year old female presents for evaluation and management of chronic bilateral knee. Patient reports a history of fibromyalgia as well. Today rating pain 5/10 in bilateral knees. Recently underwent bilateral genicular RFA with little to no benefit. Patient is on warfarin and is advised not to take NSAIDs, however she continues to use aleve advil and motrin PRN but has her INR and PT checked. Patient has found benefit to duloxetine 60mg daily for fibromyalgia pain. cc:: CC: Perla Oreilly NP Review of Systems ROS Status of ROS 10 or more systems reviewed and unremark able except as noted in history and below Musculoskeletal Reports: joint pain (bilateral knees) Meds Home Medications and Allergies Home Medications Medication Instructions Recorded Confirmed Type acetaminophen 500 mg tablet 500 mg PO BID PRN pain 01/01/23 06/16/23 History (Tylenol Extra Strength) ascorbic acid (vitamin C) 500 mg 500 mg PO DAILY 01/01/23 06/16/23 History tablet calcium 100 mg capsule mg PO 01/01/23 History carvedilol 12.5 mg tablet 12.5 mg PO BID 01/01/23 06/16/23 History diltiazem HCl 240 mg capsule,24 240 mg PO DAILY 01/01/23 06/02/23 History hr,extended release ferrous sulfate 325 mg (65 mg 325 mg PO DAILY 01/01/23 06/16/23 History iron) tablet (iron) furosemide 20 mg tablet (Lasix) 20 mg PO BID 01/01/23 06/16/23 History ibuprofen 800 mg tablet 800 mg PO TID 01/01/23 06/16/23 History metaxalone 800 mg tablet 800 mg PO TID 01/01/23 06/16/23 History metformin 500 mg tablet 500 mg PO DAILY 01/01/23 06/16/23 History paroxetine HCl 20 mg tablet 20 mg PO DAILY 01/01/23 06/02/23 History warfarin 5 mg tablet 5 mg PO DAILY 01/01/23 06/16/23 History Allergies Allergy/AdvReac Type Severity Reaction Status Date / Time Penicillins Allergy Verified 04/14/23 10:35 Exam Constitutional Documenting provider has reviewed patient's vital signs: yes Common normals: no apparent distress, oriented x3, healthy appearing, alert and well nourished General appearance: cooperative HENMT Common normals: normocephalic, hearing grossly normal bilaterally and moist oral mucous membranes Head and scalp: normocephalic Eye Common normals: PERRL Pupil: PERRL Neck & C-Spine Common normals: full ROM General: normal visual inspection Chest Common normals: inspection of chest normal Respiratory Common normals: normal respiratory effort, no retractions and no use of accessory muscles Back & Pelvis Thoracic spine/upper back: normal to inspection and thoracic ROM normal Lumbar spine/lower back: normal to inspection, pain with ROM and straight leg raise negative bilaterally Sacroiliac joints: SI joints normal Other: positive bilateral facet loading Extremity Common normals: no calf tenderness and no pedal edema Right lower extremity: knee joint (enlarged, pain with weight bearing, limited ROM, weakness) Left lower extremity: knee joint (enlarged, pain with weight bearing, limited ROM, weakness) Neuro Common normals: oriented x3, CN's II-XII intact bilaterally, moves all extremities, no focal motor deficits, no sensory deficits noted and deep tendon reflexes 2+ bilaterally Sensorium/orientation: alert Motor exam: strength 5/5 throughout and no movement abnormalities noted Psych Common normals: mental status grossly normal, thought process normal, cooperative, affect normal, speech normal and activity/motor behavior normal Speech: normal speech Thought process: normal thought process Assessment and Plan Assessment and Plan (1) Knee osteoarthritis: (2) Fibromyalgia: (3) Muscle spasm: (4) Obesity: Plan increase duloxetine to 90 mg daily, 30 mg am 60mg hs continue tylenol PRN and PRN skelaxin continue HEP as tolerated TENS unit discussed and prescribed today f/u 3 months
== END 2023-07-16 10:53 | disposition home or self-care (01) ==
LOC: PM 10:52
PROVIDERS: PCP Family Medicine; Visit Provider Nurse Practitioner
DX: M17.9 Osteoarthritis of knee, unspecified (principal); M79.7 Fibromyalgia; M62.838 Other muscle spasm; E66.9 Obesity, unspecified
CPT/HCPCS: G0463

== ENCOUNTER 2023-07-27 00:52 | Outpatient (RCR) | payer MEDICARE, BC, SELFPAY | END 2023-08-26 15:59 | disposition home or self-care (01) | LOC: MM 00:52 | PROVIDERS: PCP Family Medicine; Visit Provider Internal Medicine | DX: Z51.81 Encounter for therapeutic drug level monitoring (principal); Z79.01 Long term (current) use of anticoagulants; I48.91 Unspecified atrial fibrillation | CPT/HCPCS: 85610; G0463 ==

== ENCOUNTER 2023-08-15 11:44 | Emergency (ER) | payer MEDICARE, BC, SELFPAY ==
[2023-08-15] VITALS (15 sets, daily range): BP systolic 100–110; BP diastolic 50–82; PULSE 69–98; RESP 14–24; TEMP 37.2; O2SAT 93–98; BMI 39.9
--- NOTE | 2023-08-15 12:00 | ED_ITS ---
HPI - General Adult General Chief complaint: Dizziness Stated complaint: DIZZINESS Time Seen by Provider: 08/15/23 11:52 Source: patient Mode of arrival: walk-in Limitations: no limitations History of Present Illness HPI narrative: Patient suddenly developed vertigo after bending over to pick something up. She described intense sensation of spinning or movement while remaining still. Symptoms are worse with change in head position. She said that the symptoms are less now but bending over will cause them to intensify. No headache or visual changes. No recent URI symptoms. No recent injury to the head or neck. No chest pain or shortness of breath. She has never had vertigo before. Related Data Home Medications Medication Instructions Recorded Confirmed acetaminophen 500 mg tablet 500 mg PO BID PRN pain 01/01/23 06/16/23 (Tylenol Extra Strength) ascorbic acid (vitamin C) 500 mg 500 mg PO DAILY 01/01/23 06/16/23 tablet calcium 100 mg capsule mg PO 01/01/23 carvedilol 12.5 mg tablet 12.5 mg PO BID 01/01/23 06/16/23 diltiazem HCl 240 mg capsule,24 240 mg PO DAILY 01/01/23 06/02/23 hr,extended release ferrous sulfate 325 mg (65 mg 325 mg PO DAILY 01/01/23 06/16/23 iron) tablet (iron) furosemide 20 mg tablet (Lasix) 20 mg PO BID 01/01/23 06/16/23 ibuprofen 800 mg tablet 800 mg PO QDAY 01/01/23 07/16/23 metaxalone 800 mg tablet 800 mg PO TID 01/01/23 06/16/23 metformin 500 mg tablet 500 mg PO DAILY 01/01/23 06/16/23 warfarin 5 mg tablet 5 mg PO DAILY 01/01/23 06/16/23 duloxetine 30 mg capsule,delayed 30 mg PO .AM 07/16/23 07/16/23 release (Cymbalta) Previous Rx's Medication Instructions Recorded duloxetine 30 mg capsule,delayed 30 mg PO .am #90 caps 08/06/23 release duloxetine 60 mg capsule,delayed 60 mg PO .hs #90 caps 08/06/23 release meclizine 25 mg tablet 25 mg PO TID PRN dizziness #20 tabs 08/15/23 Allergies Allergy/AdvReac Type Severity Reaction Status Date / Time Penicillins Allergy Verified 04/14/23 10:35 PFSH [facility], [facility] Social History Smoking status: Never smoker Exam Narrative Exam Narrative: Nurses notes and vital signs reviewed and patient is not hypoxic. afebrile General: Well-appearing and in no apparent distress. Skin: Warm, dry, no pallor noted. Head: Normocephalic, atraumatic. Neck: Supple, non-tender. Eye: Pupils are equal, round and EOMI. No scleral icterus. Ears, Nose, Mouth, and Throat: TM are clear, no posterior oropharynx erythema or nasal mucosal hypertrophy, uvula is mid-line Oral mucosa is moist Cardiovascular: Regular Rate and Rhythm without murmur, gallop or rub. Respiratory: No accessory muscle use or respiratory distress. Lungs are clear to auscultation, no wheezing, rales or rhonchi Musculoskeletal: normal ROM, no calf or popliteal tenderness, no lower extremity edema/swelling Neurological: A&O x4. No cranial nerve dysfunction observed. No truncal ataxia. Moves all extremities. Sensation intact. Psychiatric: Cooperative and interactive. Normal mood and affect. Constitutional Vital Signs, click to edit/add: Last Vital Signs Temp 98.9 F 08/15/23 11:55 Pulse 96 H 08/15/23 12:52 Resp 14 08/15/23 12:40 BP 107/72 08/15/23 12:30 Pulse Ox 93 L 08/15/23 12:40 O2 Del Method Room Air 08/15/23 12:01 Course Vital Signs Vital signs: Vital Signs Pulse Rate 88 08/15/23 11:51 Respiratory Rate 16 08/15/23 11:51 Pulse Oximetry 97 08/15/23 11:51 Temperature 98.9 F 08/15/23 11:55 Pulse Rate 96 H 08/15/23 12:52 Respiratory Rate 14 08/15/23 12:40 Blood Pressure 107/72 08/15/23 12:30 Pulse Oximetry 93 L 08/15/23 12:40 Oxygen Delivery Method Room Air 08/15/23 12:01 Medical Decision Making MDM Narrative Medical decision making narrative: Patient was placed on lunchroom monitor and EKG obtained. Blood drawn and sent for evaluation. Orthostatic vital signs were negative. Patient received a dose of meclizine. Blood tests unremarkable. Patient informed of results. She felt better after ED treatment. Discharged home with prescription for additional Meclizine to take as needed. Lab Data Lab results reviewed: Yes I reviewed the patient's lab results Labs: Lab Results 08/15/23 Range/Units 12:35 WBC 4.7 (4.0-11.0) 10^3/uL RBC 4.34 (4.20-5.40) 10^6/uL Hgb 12.4 (12.0-16.0) g/dL Hct 39.2 (36.0-48.0) % MCV 90.3 (81.0-99.0) fL MCH 28.6 (26.7-34.0) pg MCHC 31.6 (29.9-35.2) g/dL RDW 14.1 (11.0-15.0) % Plt Count 214 (150-450) 10^3/uL MPV 9.7 (9.5-13.5) fL Neut % (Auto) 67.6 (43.0-75.0) % Lymph % (Auto) 20.2 L (20.5-60.0) % [place] % (Auto) 9.3 (1.7-12.0) % Eos % (Auto) 1.9 (0.9-7.0) % Baso % (Auto) 0.8 (0.2-2.0) % Neut # (Auto) 3.2 (1.4-6.5) 10^3/uL Lymph # (Auto) 1.0 L (1.2-3.8) 10^3/uL [place] # (Auto) 0.4 (0.3-0.8) 10^3/uL Eos # (Auto) 0.1 (0.0-0.7) 10^3/uL Baso # (Auto) 0.0 (0.0-0.1) 10^3/uL Abs Immat Gran (auto) 0.01 (0.00-0.03) 10^3/uL Imm/Tot Granulo (auto) 0.2 (0.0-0.5) % Sodium 139 (136-145) mmol/L Potassium 4.2 (3.5-5.1) mmol/L Chloride 102 (98-107) mmol/L Carbon Dioxide 29.3 (21.0-32.0) mmol/L Anion Gap 11.9 BUN 15.0 (7.0-18.0) mg/dL Creatinine 0.71 (0.55-1.02) mg/dL Est GFR ( Amer) >60 (>=60) Est GFR (Non-Af Amer) >60 (>=60) BUN/Creatinine Ratio 21.1 Glucose 99 (74-106) mg/dL Calcium 8.8 (8.5-10.1) mg/dL ECG Data Attestation: I personally reviewed and interpreted this ECG as follows: Interpretation: EKG interpretation: Emergency Department physician interpretation. Atrial Fibrillation at 87bpm. Normal axis, normal intervals and no ST segment elevation or depression. Discharge Plan Discharge Chief Complaint: Dizziness Clinical Impression: Benign paroxysmal positional vertigo Patient Disposition: Home, Self-Care Time of Disposition Decision: 13:05 Prescriptions / Home Meds: New meclizine 25 mg tablet 25 mg PO TID PRN (Reason: dizziness) Qty: 20 0RF No Action duloxetine [Cymbalta] 30 mg capsule,delayed release(DR/EC) 30 mg PO .AM duloxetine 30 mg capsule,delayed release(DR/EC) 30 mg PO .am Qty: 90 0RF duloxetine 60 mg capsule,delayed release(DR/EC) 60 mg PO .hs Qty: 90 0RF calcium 100 mg capsule PO ibuprofen 800 mg tablet 800 mg PO QDAY furosemide [Lasix] 20 mg tablet 20 mg PO BID metaxalone 800 mg tablet 800 mg PO TID acetaminophen [Tylenol Extra Strength] 500 mg tablet 500 mg PO BID PRN (Reason: pain) warfarin 5 mg tablet 5 mg PO DAILY carvedilol 12.5 mg tablet 12.5 mg PO BID Rx Instructions: must administer with a meal/food diltiazem HCl 240 mg capsule,extended release 24 hr 240 mg PO DAILY ferrous sulfate [iron] 325 mg (65 mg iron) tablet 325 mg PO DAILY metformin 500 mg tablet 500 mg PO DAILY ascorbic acid (vitamin C) 500 mg tablet 500 mg PO DAILY Instructions: Benign Paroxysmal Positional Vertigo (ED) Stand Alone Forms: Portal Instructions Referrals: CASSANDRA KING [Primary Care Provider] - 1 week
--- NOTE | 2023-08-15 12:06 | ECG_ITS ---
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
--- OUTSIDE RECORDS SUMMARY | 2023-08-15 12:13 | XMS_ITS | CCD ---
Author Name Unknown Address [address] [place] [address] Organization [facility] Care Team Providers Care Spray Stainer Name Role Phone PHYSICIAN, DEFAULT Unavailable Unavailable [...] BERNSTEIN H Admitting Unavailable LAKSHMIPATHY ., NARENDCARMENATH Admitting Li vailable LAKSHMIPATHY ., MARTINAATH Consulting Li vailable CHRISTINE, DR TRUJILLO Primary Care Unavailable LAKSHMIPATHY ., MARTINAATH Attending Li vailable CHRISTINE, DR TRUJILLO Primary Care Unavailable FAWWAAngel, BERNSTEIN H Attending Unavailable FAWWAD, BERNSTEIN H Admitting Unavailable LAKSHMIPATHY ., NARENDCARMENATH Attending Li vailable LAKSHMIPATHY ., MARTINAATH Admitting Li vailable CHRISTINE, DR TRUJILLO Primary [...] FAWWAD, BERNSTEIN H Attending Unavailable CHRISTINE, DR TURJILLO Primary Care Unavailable FAWWAD, BERNSTEIN H Admitting [...] sources) Penicillins Drug allergy (disorder) 07-12-2016 [facility] Repository Problems Active Problems Problem Classification Problem [...] Onset: 11-22-2022 Episodic Other aftercare (1 source) alf (current) use of anticoagulants; Translations: [FPC CURRNT USE ANTICOAGULANTS] Onset: 12-24-2022 Episodic Other [...] Coag (PPP) [Relative time] 1.02 {INR} Normal [facility] Comment on above: Performed By: #### P T #### [facility] [address] [place] [address] Dr. Justyn Quintanilla INR GUIDELINES SEE BELOW Normal [facility] Comment on above: Result Comment: THAI RED INR: 2.0 - 3.0 CONDITIONS NOT LISTED BELOW 2.5 - 3.5 FOR PROSTHETIC HEART VALVE REPLACEMENT 2.5 - 3.5 RECURRENT THROMBOSIS Performed By: #### P T #### [facility] [address] [place] [address] Dr. Justyn Quintanilla PT Coag (PPP) [Time] 10.8 s Normal 9.0-11.6 [facility] Comment on above: Performed By: #### P T #### [facility] [address] [place] [address] Dr. Justyn Quintanilla CBC AUTO DIFFon 05-22-2022 BASO # 0.0 103/ul Normal 0.0-0.1 [facility] Comment on above: Performed By: #### C BC #### [facility] [address] [place] [address] Dr. Justyn Quintanilla Basophils/100 WBC (Bld) 0.5 % Normal 0.2-2.0 [facility] Comment on above: Performed By: #### C BC #### [facility] [address] [place] [address] Dr. Justyn Quintanilla EO # 0.1 103/ul Normal 0.0-0.7 [facility] Comment on above: Performed By: #### C BC #### [facility] [address] [place] [address] Dr. Justyn Quintanilla Eosinophils/100 WBC (Bld) 2.9 % Normal 0.9-7.0 [facility] Comment on above: Performed By: #### C BC #### [facility] [address] [place] [address] Dr. Justyn Quintanilla Erythrocyte distribution width (RBC) [Ratio] 20.7 % Critically high 11.0-15.0 [facility] Comment on above: Performed By: #### C BC #### [facility] [address] [place] [address] Dr. Justyn Quintanilla Hematocrit (Bld) [Volume fraction] 29.7 % Critically low 36.0-48.0 [facility] Comment on above: Performed By: #### C BC #### [facility] [address] [place] [address] Dr. Justyn Quintanilla Hemoglobin (Bld) [Mass/Vol] 9.0 g/dL Critically low 12.0-16.0 [facility] Comment on above: Performed By: #### C BC #### [facility] [address] [place] [address] Dr. Justyn Quintanilla IG # 0.01 10e3/ul Normal 0.00-0.03 [facility] Comment on above: Performed By: #### C BC #### [facility] [address] [place] [address] Dr. Justyn Quintanilla IG % 0.2 % Normal 0.0-0.5 [facility] Comment on above: Performed By: #### C BC #### [facility] [address] [place] [address] Dr. Justyn Quintanilla LYMPH # 1.2 103/ul Normal 1.2-3.8 [facility] Comment on above: Performed By: #### C BC #### [facility] [address] [place] [address] Dr. Justyn Quintanilla Lymphocytes/100 WBC (Bld) 29.0 % Normal 20.5-60.0 [facility] Comment on above: Performed By: #### C BC #### [facility] [address] [place] [address] Dr. Justyn Quintanilla MANUAL DIFF REQ NO Normal [facility] Comment on above: Performed By: #### C BC #### [facility] [address] [place] [address] Dr. Justyn Quintanilla MCH (RBC) [Entitic mass] 28.6 pg Normal 26.7-34.0 [facility] Comment on above: Performed By: #### C BC #### [facility] [address] [place] [address] Dr. Justyn Quintanilla MCHC (RBC) [Mass/Vol] 30.3 g/dL Normal 29.9-35.2 [facility] Comment on above: Performed By: #### C BC #### [facility] [address] [place] [address] Dr. Justyn Quintanilla MCV (RBC) [Entitic vol] 94.3 fL Normal 81.0-99.0 [facility] Comment on above: Performed By: #### C BC #### [facility] [address] [place] [address] Dr. Justyn Quintanilla MONO # 0.4 103/ul Normal 0.3-0.8 [facility] Comment on above: Performed By: #### C BC #### [facility] [address] [place] [address] Dr. Justyn Quintanilla Monocytes/100 WBC (Bld) 9.8 % Normal 1.7-12.0 [facility] Comment on above: Performed By: #### C BC #### [facility] [address] [place] [address] Dr. Justyn Quintanilla NEUT # 2.3 103/ul Normal 1.4-6.5 [facility] Comment on above: Performed By: #### C BC #### [facility] [address] [place] [address] Dr. Justyn Quintanilla Neutrophils/100 WBC (Bld) 57.6 % Normal 43.0-75.0 [facility] Comment on above: Performed By: #### C BC #### [facility] [address] [place] [address] Dr. Justyn Quintanilla Platelet mean volume (Bld) [Entitic vol] 9.2 fL Critically low 9.5-13.5 [facility] Comment on above: Performed By: #### C BC #### [facility] [address] [address] [address] Justyn Quintanilla PLT 361 103/ul Normal 150-450 [facility] Comment on above: Performed By: #### C BC #### [facility] [address] [address] [address] Justyn Quintanilla RBC 3.15 106/ul Critically low 4.20-5.40 [facility] Comment on above: Performed By: #### C BC #### [facility] [id number] Justyn Quintanilla WBC 4.1 103/ul Normal 4.0-11.0 [facility] Comment on above: Performed By: #### C BC #### [facility] [address] [address] [address] Justyn Quintanilla MG MAMM SCREEN 3D JACQUELINE CADon 01-08-2022 MG MAMM SCREEN 3D JACQUELINE CAD Patient: MESFIN LOPEZ Exam Date: 01/08/2022 : 1950 Gender:F Ordering : DR VENECIA KING M.D. Admission #: [id number] Family : Order #: [id number] CLICK HERE TO VIEW EXAM RADIOLOGY REPORT [...] breast cancer at age 81. LOCATION: [facility] BREAST COMPOSITION: Scattered areas fibroglandular density. FINDINGS: [...] Pro MD on 01/23/2022 at 08:05 Normal [facility] XR DEXA BONE DENSITYon 01-08 XR DEXA [...] authenticated by: CINTHYA PHAM Date: 2022-01-08 18:00 [facility] Complete Blood Count with Au to Diffon 12-17-2021 Basophils (Bld) [#/Vol] 0.05 10*3/uL Normal 0.00-0.20 [facility] Comment on above: Performed By: #### V ITD, LIPD, smear, CBCAD, CMP #### [facility] [address] [place], [place] [id number] Basophils/100 WBC (Bld) 1.3 % Normal [facility] Comment on above: Performed By: #### V ITD, LIPD, smear, CBCAD, CMP #### [facility] [address] [place], [place] [id number] Eosinophils (Bld) [#/Vol] 0.08 10*3/uL Normal 0.02-0.50 [facility] Comment on above: Performed By: #### V ITD, LIPD, smear, CBCAD, CMP #### [facility] [address] [place], [place] [id number] Eosinophils/100 WBC (Bld) 2.1 % Normal [facility] Comment on above: Performed By: #### V ITD, LIPD, smear, CBCAD, CMP #### [facility] [address] [place], [place] [id number] Erythrocyte distribution width (RBC) [Ratio] 17.8 % High 11.0-15.0 [facility] Comment on above: Performed By: #### V ITD, LIPD, smear, CBCAD, CMP #### [facility] [address] [place], [place] [id number] Hematocrit (Bld) [Volume fraction] 30.4 % Low 35.0-47.0 [facility] Comment on above: Performed By: #### V ITD, LIPD, smear, CBCAD, CMP #### [facility] [address] [place], [place] [id number] Hemoglobin (Bld) [Mass/Vol] 8.7 g/dL Low 11.6-15.5 [facility] Comment on above: Performed By: #### V ITD, LIPD, smear, CBCAD, CMP #### [facility] [address] [place], [place] [id number] Lymphocytes (Bld) [#/Vol] 1.0 10*3/uL Normal 0.9-3.9 [facility] Comment on above: Performed By: #### V ITD, LIPD, smear, CBCAD, CMP #### [facility] [address] [place], [place] [id number] Lymphocytes/100 WBC (Bld) 25.1 % Normal [facility] Comment on above: Performed By: #### V ITD, LIPD, smear, CBCAD, CMP #### [facility] [address] [place], [place] [id number] MCH (RBC) [Entitic mass] 21.1 pg Low 27.0-33.0 [facility] Comment on above: Performed By: #### V ITD, LIPD, smear, CBCAD, CMP #### [facility] [address] [place], [place] [id number] MCHC (RBC) [Mass/Vol] 28.6 g/dL Low 32.0-36.0 [facility] Comment on above: Performed By: #### V ITD, LIPD, smear, CBCAD, CMP #### [facility] [address] [place], [place] [id number] MCV (RBC) [Entitic vol] 74 fL Low 80-100 [place] [facility] Comment on above: Performed By: #### V ITD, LIPD, smear, CBCAD, CMP #### [facility] [address] [place], [place] [id number] Monocytes (Bld) [#/Vol] 0.4 10*3/uL Normal 0.2-0.9 [facility] Comment on above: Performed By: #### V ITD, LIPD, smear, CBCAD, CMP #### [facility] [address] [place], [place] [id number] Monocytes/100 WBC (Bld) 9.9 % Normal [facility] Comment on above: Performed By: #### V ITD, LIPD, smear, CBCAD, CMP #### [facility] [address] [place], [place] [id number] Neutrophils (Bld) [#/Vol] 2.4 10*3/uL Normal 1.5-7.8 [facility] Comment on above: Performed By: #### V ITD, LIPD, smear, CBCAD, CMP #### [facility] [address] [place], [place] [id number] Neutrophils/100 WBC (Bld) 61.3 % Normal [facility] Comment on above: Performed By: #### V ITD, LIPD, smear, CBCAD, CMP #### [facility] [address] [place], [place] [id number] Platelet mean volume (Bld) [Entitic vol] 10.00 fL Normal 7.50-12.50 [facility] Comment on above: Performed By: #### V ITD, LIPD, smear, CBCAD, CMP #### [facility] [address] [place], [place] [id number] Platelets (Bld) [#/Vol] 255 10*3/uL Normal 140-400 [facility] Comment on above: Performed By: #### V ITD, LIPD, smear, CBCAD, CMP #### [facility] [address] [place], [place] [id number] RBC (Bld) [#/Vol] 4.13 10*6/uL Normal 3.90-5.20 [facility] Comment on above: Performed By: #### V ITD, LIPD, smear, CBCAD, CMP #### [facility] [address] [place], [place] [id number] RDW-SD 46.7 fL Normal 37.0-50.0 [facility] Comment on above: Performed By: #### V ITD, LIPD, smear, CBCAD, CMP #### [facility] [address] [place], [place] [id number] REFLEX Smear Review Normal [facility] Comment on above: Performed By: #### V ITD, LIPD, smear, CBCAD, CMP #### [facility] [address] [place], [place] [id number] WBC (Bld) [#/Vol] 3.8 10*3/uL Normal 3.8-11.0 [facility] Comment on above: Performed By: #### V ITD, LIPD, smear, CBCAD, CMP #### [facility] [address] [place], [place] [id number] [facility] 12-17-2021 Albumin [Mass/Vol] 4.1 g/dL Normal 3.6-5.1 [facility] Comment on above: Performed By: #### V ITD, LIPD, smear, CBCAD, CMP #### [facility] [address] [place], [place] [id number] Albumin/Globulin [Mass ratio] 2.0 {ratio} Normal 1.0-2.5 [facility] Comment on above: Performed By: #### V ITD, LIPD, smear, CBCAD, CMP #### [facility] [address] [place], [place] [id number] ALP [Catalytic activity/Vol] 85 U/L Normal 35-119 [facility] Comment on above: Performed By: #### V ITD, LIPD, smear, CBCAD, CMP #### [facility] [address] [place], [place] [id number] ALT [Catalytic activity/Vol] 12 U/L Normal 6-33 [facility] Comment on above: Result Comment: 06/26 Female reference range changed. Performed By: #### V ITD, LIPD, smear, CBCAD, CMP #### [facility] [address] [place], [place] [id number] Anion gap [Moles/Vol] 15 mmol/L Normal 12-20 [facility] Comment on above: Result Comment: Efflana ctive 08/01/2019 reference range changed. Performed By: #### V ITD, LIPD, smear, CBCAD, CMP #### [facility] [address] [place], [place] [id number] AST [Catalytic activity/Vol] 18 U/L Normal 9-34 [facility] Comment on above: Performed By: #### V ITD, LIPD, smear, CBCAD, CMP #### [facility] [address] [place], [place] [id number] Bilirubin [Mass/Vol] 0.47 mg/dL Normal 0.30-1.20 [facility] Comment on above: Performed By: #### V ITD, LIPD, smear, CBCAD, CMP #### [facility] [address] [place], [place] [id number] BUN/CREA 28 Ratio High 6-22 [facility] Comment on above: Performed By: #### V ITD, LIPD, smear, CBCAD, CMP #### [facility] [address] [place], [place] [id number] Calcium [Mass/Vol] 9.3 mg/dL Normal 8.6-10.2 [facility] Comment on above: Performed By: #### V ITD, LIPD, smear, CBCAD, CMP #### [facility] [address] [place], [place] [id number] Chloride [Moles/Vol] 103 mmol/L Normal 98-107 [facility] Comment on above: Performed By: #### V ITD, LIPD, smear, CBCAD, CMP #### [facility] [address] [place], [place] [id number] CO2 [Moles/Vol] 27 mmol/L Normal 20-31 [facility] Comment on above: Performed By: #### V ITD, LIPD, smear, CBCAD, CMP #### [facility] [address] [facility] [place] [place] [id number] Creatinine [Mass/Vol] 0.6 mg/dL Normal 0.6-1.4 [place] [facility] Comment on above: Performed By: #### V ITD, LIPD, smear, CBCAD, CMP #### [facility] [address] [place], [place] [id number] eGFRAA 122 mL/min/1.73m2 Normal >60 [facility] Comment on above: Performed By: #### V ITD, LIPD, smear, CBCAD, CMP #### [facility] [address] [place], [place] [id number] eGFRNAA 101 mL/min/1.73m2 Normal >60 [facility] Comment on above: Performed By: #### V ITD, LIPD, smear, CBCAD, CMP #### [facility] [address] [place], [place] [id number] Globulin (S) [Mass/Vol] 2.1 g/dL Normal 1.9-3.7 [facility] Comment on above: Performed By: #### V ITD, LIPD, smear, CBCAD, CMP #### [facility] [address] [place], [place] [id number] Glucose [Mass/Vol] 100 mg/dL High 65-99 [facility] Comment on above: Result Comment: For FASTING Glucose --- ADA reference ranges: Normal 65-99 mg/dl Prediabetes 100-125 Diabetes >/= 126 Performed By: #### V ITD, LIPD, smear, CBCAD, CMP #### [facility] [address] [place], [place] [id number] Potassium [Moles/Vol] 4.8 mmol/L Normal 3.5-5.5 [facility] Comment on above: Performed By: #### V ITD, LIPD, smear, CBCAD, CMP #### [facility] [address] [place], [place] [id number] Protein [Mass/Vol] 6.2 g/dL Normal 6.1-8.[address] [facility] Comment on above: Performed By: #### V ITD, LIPD, smear, CBCAD, CMP #### [facility] [address] [place], [place] [id number] Sodium [Moles/Vol] 140 mmol/L Normal 135-146 [place] [facility] Comment on above: Performed By: #### V ITD, LIPD, smear, CBCAD, CMP #### [facility] [address] [place], [place] [id number] Urea nitrogen [Mass/Vol] 16 mg/dL Normal 7-25 [facility] Comment on above: Performed By: #### V ITD, LIPD, smear, CBCAD, CMP #### [facility] [address] [place], [place] [id number] Hemoglobin A1Con 12-17-2021 EAG 122.63 Normal [facility] Comment on above: Performed By: #### A 1C #### [facility] [address] [place], [place] [id number] HbA1c (Bld) [Mass fraction] 5.9 % Normal 4.0-6.0 [facility] Comment on above: Performed By: #### A 1C #### [facility] [address] [place], [place] [id number] Lipid Panelon 12-17-2021 Cholesterol [Mass/Vol] 178 mg/dL Normal 125-200 [facility] Comment on above: Result Comment: Low risk < 200mg/dL Borderline risk 201-239 mg/dl High risk > or equal to 240 Performed By: #### V ITD, LIPD, smear, CBCAD, CMP #### [facility] [address] [place], [place] [id number] Cholesterol in HDL [Mass/Vol] 54 mg/dL Normal >40 [facility] Comment on above: Result Comment: High Cardiovascular Risk HDL <40 mg/dL Low Cardiovascular Risk HDL > or equal to 60 mg/dl Performed By: #### V ITD, LIPD, smear, CBCAD, CMP #### [facility] [address] [place], [place] [id number] Cholesterol in LDL [Mass/Vol] 111 mg/dL Normal [facility] Comment on above: Result Comment: LDL ATP III CLASSIFICATION LDL less than 100 mg/dl Optimal LDL 100-129 mg/dl Near or above optimal LDL 130-159 Borderline high LDL 160-189 High LDL greater than 189 mg/dl Very High Performed By: #### V ITD, LIPD, smear, CBCAD, CMP #### [facility] [address] [place], [place] [id number] Cholesterol in VLDL [Mass/Vol] 13 mg/dL Normal [facility] Comment on above: Performed By: #### V ITD, LIPD, smear, CBCAD, CMP #### [facility] [address] [place], [place] [id number] Cholesterol.total/C holesterol in HDL [Mass ratio] 3 {ratio} Normal [facility] Comment on above: Performed By: #### V ITD, LIPD, smear, CBCAD, CMP #### [facility] [address] [place], [place] [id number] Triglyceride [Mass/Vol] 67 mg/dL Normal 30-150 [facility] Comment on above: Result Comment: TRIG ATPIII CLASSIFICATIONS TRIG less than 150 mg/dl Normal TRIG 150-199 mg/dl Borderline High TRIG 200-500 mg/dl High TRIG greather than 500 mg/dl Very High Performed By: #### V ITD, LIPD, smear, CBCAD, CMP #### [facility] [address] [place], [place] [id number] Smear Reviewon 12-17-2021 PLT EST Adequate Normal [facility] Comment on above: Performed By: #### V ITD, LIPD, smear, CBCAD, CMP #### [facility] [address] [place], [place] [id number] RBC morphology finding Nom (Bld) RBC morphology review confirms RBC indices Normal [facility] Comment on above: Performed By: #### V ITD, LIPD, smear, CBCAD, CMP #### [facility] [address] [place], [place] [id number] Vitamin D 25-OHon 12-17-2021 VIT D 25 OH 48 ng/ml Normal >29 [facility] Comment on above: Result Comment: Miladys min D Status Deficiency <20 ng/mL Insufficiency 20-29 ng/mL Optimal 30-100 ng/mL Possible Toxicity >=150 ng/mL Performed By: #### V ITD, LIPD, smear, CBCAD, CMP #### [facility] [address] [place], [place] [id number] Encounters Encounter Date Encounter Type Care Provider [...] Start: 11-27-2017 End: 05-05-2018 Ambulatory DEFAULT PHYSICIAN Facility:[facility] Payers Date Payer Category Payer Medicare [id number] 1958 Unknown [id number] 1950 Unknown [id number] 2.16.84 0.1.204229.3.579.2.593 1950 Unknown [id number] 2.16.84 0.1.238864.3.579.2.593 1950 Unknown [id number] 2.16.84 0.1.894245.3.579.2.593 1950 Unknown [id number] 2.16.84 0.1.051187.3.579.2.593 1950 Unknown [id number] 2.16.84 0.1.797026.3.579.2.593 1950 Unknown [id number] 2.16.84 0.1.184938.3.579.2.593 1950 Unknown [id number] 2.16.84 0.1.420439.3.579.2.593 1950 Unknown [id number] 2.16.84 0.1.695499.3.579.2.593 1950 Unknown [id number] 2.16.84 0.1.333414.3.579.2.593 1950 Unknown [id number] 2.16.84 0.1.015115.3.579.2.593 1950 Unknown [id number] 2.16.84 0.1.790803.3.579.2.593 1950 Unknown [id number] 2.16.84 0.1.475851.3.579.2.593 1950 Unknown [id number] 2.16.84 0.1.926147.3.579.2.593 1950 Unknown [id number] 2.16.84 0.1.815689.3.579.2.593 1950 Unknown [id number] 2.16.84 0.1.977092.3.579.2.593 1950 Unknown [id number] 2.16.84 0.1.252456.3.579.2.593 1950 Unknown [id number] 2.16.84 0.1.415293.3.579.2.593 Medicare [id number] Unknown Consultation note 12-02-2022 Note Date & [...] our patients to inform us about any iesf-zia-yokpjpb medications or herbal remedies/nutritional supplements/alternative remedies. 2. [...] options with their primary care provider. [facility] Summary Purpose Family History No Family History Records FoundNo Family History Records FoundNo Family History Records FoundNo Family History Records FoundNo Family History Records Found Advance Directives No Advanced Directives Records FoundNo Advanced Directives Records FoundNo Advanced Directives Records FoundNo Advanced Directives Records FoundNo Advanced Directives Records Found Additional Source Comments INFORMATION SOURCE (unrecogn ized section and content) DATE CREATED AUTHOR 01/14/2018 [facility] DATE CREATED AUTHOR AUTHOR'S ORGANIZ ATION 02/11/2018 [facility] DATE CREATED AUTHOR AUTHOR'S ORGANIZ ATION 02/11/2018 [facility] DATE CREATED AUTHOR AUTHOR'S ORGANIZ ATION 12/18/2021 [facility] dical Specialist DATE CREATED AUTHOR AUTHOR'S ORGANIZ ATION 01/02/2023 [facility] FOR RECORDS PERTAINING TO PATIENTS WHO [...] BE BASED ON THE PRIMARY CLINICAL RECORDS. [facility]. provides no warranty or guarantee of the accuracy or completeness of information in this document.
[2023-08-15] MEDS: MECLIZINE HCL 12.5 MG TABLET 25 MG PO (12:19)
[2023-08-15 12:46] LABS: Basophils Percent Auto 0.8 % (0.2-2.0); Eosinophils Absolute Auto 0.1 10^3/uL (0.0-0.7); Eosinophils Percent Auto 1.9 % (0.9-7.0); Hematocrit 39.2 % (36.0-48.0); Hemoglobin 12.4 g/dL (12.0-16.0); Immature Granulocytes Abs Auto 0.01 10^3/uL (0.00-0.03); Immature Granulocytes Pct Auto 0.2 % (0.0-0.5); Lymphocytes Percent Auto 20.2 % (20.5-60.0); Mean Corpuscular HGB Conc 31.6 g/dL (29.9-35.2); Mean Corpuscular Hemoglobin 28.6 pg (26.7-34.0); Mean Corpuscular Volume 90.3 fL (81.0-99.0); Mean Platelet Volume 9.7 fL (9.5-13.5); Monocytes Absolute Auto 0.4 10^3/uL (0.3-0.8); Monocytes Percent Auto 9.3 % (1.7-12.0); Neutrophils Absolute Auto 3.2 10^3/uL (1.4-6.5); Neutrophils Percent Auto 67.6 % (43.0-75.0); Platelet Count 214 10^3/uL (150-450); Red Blood Count 4.34 10^6/uL (4.20-5.40); Red Cell Distribution Width 14.1 % (11.0-15.0); White Blood Count 4.7 10^3/uL (4.0-11.0)
[2023-08-15 12:50] LABS: Anion Gap 11.9; BUN Creatinine Ratio 21.1; Calcium 8.8 mg/dL (8.5-10.1); Carbon Dioxide 29.3 mmol/L (21.0-32.0); Chloride 102 mmol/L (98-107); Estimated GFR (African America >60 (>=60); Estimated GFR (Non-African Ame >60 (>=60); Glucose 99 mg/dL (74-106); Potassium 4.2 mmol/L (3.5-5.1); Sodium 139 mmol/L (136-145)
== END 2023-08-15 13:21 | disposition home or self-care (01) ==
LOC: ER 12:12
PROVIDERS: Emergency Provider Emergency Medicine; PCP Family Medicine
DX: H81.10 Benign paroxysmal vertigo, unspecified ear (principal); Z79.899 Other long term (current) drug therapy; Z79.84 Long term (current) use of oral hypoglycemic drugs; Z79.01 Long term (current) use of anticoagulants
CPT/HCPCS: 36415; 80048; 85025; 93005; 99284

== ENCOUNTER 2023-08-27 00:44 | Outpatient (RCR) | payer MEDICARE, BC, SELFPAY | END 2023-09-24 17:11 | disposition home or self-care (01) | LOC: MM 00:44 | PROVIDERS: PCP Family Medicine; Visit Provider Internal Medicine | DX: Z51.81 Encounter for therapeutic drug level monitoring (principal); Z79.01 Long term (current) use of anticoagulants; I48.91 Unspecified atrial fibrillation | CPT/HCPCS: 85610; G0463 ==

== ENCOUNTER 2023-09-25 03:25 | Outpatient (RCR) | payer MEDICARE, BC, SELFPAY | END 2023-10-23 14:05 | disposition home or self-care (01) | LOC: MM 03:25 | PROVIDERS: PCP Family Medicine; Visit Provider Internal Medicine | DX: Z51.81 Encounter for therapeutic drug level monitoring (principal); Z79.01 Long term (current) use of anticoagulants; I48.91 Unspecified atrial fibrillation ==

== ENCOUNTER 2023-10-15 10:37 | Outpatient (OUT) | payer MEDICARE, BC, SELFPAY ==
--- OUTSIDE RECORDS SUMMARY | 2023-10-15 10:42 | XMS_ITS | CCD ---
Author Organization [facility] Care Team Providers Care Radio Mechanic Name Role Phone PHYSICIAN, DEFAULT Unavailable Unavailable PHYSICIAN, DEFAULT Unavailable Unavailable ALLRED, KELLER Unavailable Unavailable CHRISTINE, LEONAEN Unavailable Unavailable ALLRED, KELLER Unavailable Unavailable CHRISTINELEONAEN Unavailable Unavailable CHRISTINE, DR TRUJILLO Primary Care Unavailable FAWWAAngel, BERNSTEIN H Attending Unavailable FAWWAD, BERNSTEIN H Admitting Unavailable CHRISTINE, DR TRUJILOL Primary Care Unavailable FAWWAD, BERNSTEIN H Attending Unavailable FAWWAD, BERNSTEIN H Admitting Unavailable CHRISTINE, DR TRUJILLO Primary Care Unavailable FAWWAD, BERNSTEIN H Attending Unavailable FAWWAD, BERNSTEIN H Admitting Unavailable LAKSHMIPATHY ., NARENDRANATH Admitting Li vailable LAKSHMIPATHY ., JES Consulting Li vailable CHRISTINE, DR TRUJILLO Primary Care Unavailable LAKSHMIPATHY ., MARTINAATH Attending Li vailable CHRISTINE, DR TRUJILLO Primary Care Unavailable FAWWAD, BERNSTEIN H Attending Unavailable FAWWAD, BERNSTEIN H Admitting Unavailable LAKSHMIPATHY ., MARTINAATH Attending Li vailable LAKSHMIPATHY ., MARTINAATH Admitting [...] Attending Unavailable FAWWAD, BERNSTEIN H Admitting Unavailable CHRITSINE, DR TRUJILLO Primary Care Unavailable FAWWAD, BERNSTEIN [...] sources) Penicillins Drug allergy (disorder) 07-12-2016 [facility] Repository Problems Active Problems Problem Classification Problem [...] Onset: 11-22-2022 Episodic Other aftercare (1 source) FDC (current) use of anticoagulants; Translations: [FPC CURRNT [...] [ENC SCR MAMMO MALIG NEOPLASM BREAST] Onset: 01-23-2022 Episodic Residual codes; unclassified (1 source) Family history of malignant neoplasm of breast; Translations: [FAMILY HX MALIG NEOPLASM OF BREAST] Onset: 01-23-2022 Episodic Results Test Name Value Interpretation Reference Range Facility PROTIMEon 12-16-2022 INR Coag (PPP) [Relative time] 1.02 {INR} Normal [facility] Comment on above: Performed By: #### P T #### [facility] [address] [place] [address] Dr. Justyn Quintanilla INR GUIDELINES SEE BELOW Normal [facility] Comment on above: Result Comment: THAI RED INR: 2.0 - 3.0 CONDITIONS NOT LISTED BELOW 2.5 - 3.5 FOR PROSTHETIC HEART VALVE REPLACEMENT 2.5 - 3.5 RECURRENT THROMBOSIS Performed By: #### P T #### [facility] [address] [place] [address] Dr. Justyn Quintanilla PT Coag (PPP) [Time] 10.8 s Normal 9.0-11.6 [facility] Comment on above: Performed By: #### P T #### [facility] [address] [place] [address] Dr. Justyn Quintanilla CBC AUTO DIFFon 05-22-2022 BASO # 0.0 103/ul Normal 0.0-0.1 [facility] Comment on above: Performed By: #### C BC #### [facility] [address] [place] [address] Dr. Justyn Quintanilla Basophils/100 WBC (Bld) 0.5 % Normal 0.2-2.0 [facility] Comment on above: Performed By: #### C BC #### [facility] [address] [place] [address] Dr. Justyn Quintanilla EO # 0.1 103/ul Normal 0.0-0.7 [facility] Comment on above: Performed By: #### C BC #### [facility] [address] [place] [address] Dr. Justyn Quintanilla Eosinophils/100 WBC (Bld) 2.9 % Normal 0.9-7.0 [facility] Comment on above: Performed By: #### C BC #### [facility] [address] [place] [address] Dr. Justyn Quitnanilla Erythrocyte distribution width (RBC) [Ratio] 20.7 % Critically high 11.0-15.0 [facility] Comment on above: Performed By: #### C BC #### [facility] [address] [place] [address] Dr. Justyn Quintanilla Hematocrit (Bld) [Volume fraction] 29.7 % Critically low 36.0-48.0 [facility] Comment on above: Performed By: #### C BC #### [facility] [address] [place] [address] Dr. Justyn Quintanilla Hemoglobin (Bld) [Mass/Vol] 9.0 g/dL Critically low 12.0-16.0 [facility] Comment on above: Performed By: #### C BC #### [facility] [address] [place] [address] Dr. Justyn Quintanilla IG # 0.01 10e3/ul Normal 0.00-0.03 [facility] Comment on above: Performed By: #### C BC #### [facility] [address] [place] [address] Dr. Justyn Quintanilla IG % 0.2 % Normal 0.0-0.5 [facility] Comment on above: Performed By: #### C BC #### [facility] [address] [place] [address] Dr. Justyn Quintanilla LYMPH # 1.2 103/ul Normal 1.2-3.8 [facility] Comment on above: Performed By: #### C BC #### [facility] [address] [place] [address] Dr. Justyn Quintanilla Lymphocytes/100 WBC (Bld) 29.0 % Normal 20.5-60.0 [facility] Comment on above: Performed By: #### C BC #### [facility] [address] [place] [address] Dr. Justyn Quintanilla MANUAL DIFF REQ NO Normal [facility] Comment on above: Performed By: #### C BC #### [facility] [address] [place] [address] Dr. Justyn Quintanilla MCH (RBC) [Entitic mass] 28.6 pg Normal 26.7-34.0 [facility] Comment on above: Performed By: #### C BC #### [facility] [address] [place] [address] Dr. Justyn Quintanilla MCHC (RBC) [Mass/Vol] 30.3 g/dL Normal 29.9-35.2 [facility] Comment on above: Performed By: #### C BC #### [facility] [address] [place] [address] Dr. Justyn Quintanilla MCV (RBC) [Entitic vol] 94.3 fL Normal 81.0-99.0 [facility] Comment on above: Performed By: #### C BC #### [facility] [address] [place] [address] Dr. Justyn Quintanilla MONO # 0.4 103/ul Normal 0.3-0.8 [facility] Comment on above: Performed By: #### C BC #### [facility] [address] [place] [address] Dr. Justyn Quintanilla Monocytes/100 WBC (Bld) 9.8 % Normal 1.7-12.0 [facility] Comment on above: Performed By: #### C BC #### [facility] [address] [place] [address] Dr. Justyn Quintanilla NEUT # 2.3 103/ul Normal 1.4-6.5 [facility] Comment on above: Performed By: #### C BC #### [facility] [address] [place] [address] Dr. Justyn Quintanilla Neutrophils/100 WBC (Bld) 57.6 % Normal 43.0-75.0 [facility] Comment on above: Performed By: #### C BC #### [facility] [address] [place] [address] Dr. Justyn Quintanilla Platelet mean volume (Bld) [Entitic vol] 9.2 fL Critically low 9.5-13.5 [facility] Comment on above: Performed By: #### C BC #### [facility] [address] [place] [address] Dr. Justyn Quintanilla PLT 361 103/ul Normal 150-450 [facility] Comment on above: Performed By: #### C BC #### [facility] [address] [place], [place] [address] Dr. Justyn Quintanilla RBC 3.15 106/ul Critically low 4.20-5.40 [facility] Comment on above: Performed By: #### C BC #### [facility] [address] [place], [place] [address] Dr. Justyn Quintanilla WBC 4.1 103/ul Normal 4.0-11.0 [facility] Comment on above: Performed By: #### C BC #### [facility] [address] [place], [place] [address] Dr. Justyn Quintanilla MG MAMM SCREEN 3D JACQUELINE CADon 01-08-2022 MG MAMM SCREEN 3D JACQUELINE CAD Patient: MESFIN LOPEZ Exam Date: 01/08/2022 : 1950 Gender:F Ordering : DR VENECIA KING M.D. Admission #: [id number] Family : Order #: [id number] CLICK HERE TO VIEW EXAM RADIOLOGY REPORT [...] breast cancer at age 81. LOCATION: [facility] BREAST COMPOSITION: Scattered areas fibroglandular density. FINDINGS: [...] Pro MD on 01/23/2022 at 08:05 Normal [facility] XR DEXA BONE DENSITYon 06-15 -2022 XR DEXA BONE DENSITY EXAMINATION: XR DEXA [...] authenticated by: CINTHYA PHAM Date: 2022-01-08 18:00 Normal [facility] Complete Blood Count with Au to Diffon 12-17-2021 Basophils (Bld) [#/Vol] 0.05 10*3/uL Normal 0.00-0.20 [facility] Comment on above: Performed By: #### V ITD, LIPD, smear, CBCAD, CMP #### [facility] [address], [place] [id number] Basophils/100 WBC (Bld) 1.3 % Normal [facility] Comment on above: Performed By: #### V ITD, LIPD, smear, CBCAD, CMP #### [facility] [address], [place] [id number] Eosinophils (Bld) [#/Vol] 0.08 10*3/uL Normal 0.02-0.50 [facility] Comment on above: Performed By: #### V ITD, LIPD, smear, CBCAD, CMP #### [facility] [address], [place] [id number] Eosinophils/100 WBC (Bld) 2.1 % Normal [facility] Comment on above: Performed By: #### V ITD, LIPD, smear, CBCAD, CMP #### [facility] [address], [place] [id number] Erythrocyte distribution width (RBC) [Ratio] 17.8 % High 11.0-15.0 [place] [facility] Comment on above: Performed By: #### V ITD, LIPD, smear, CBCAD, CMP #### [facility] [address], [place] [id number] Hematocrit (Bld) [Volume fraction] 30.4 % Low 35.0-47.0 [facility] Comment on above: Performed By: #### V ITD, LIPD, smear, CBCAD, CMP #### [facility] [address], [place] [id number] Hemoglobin (Bld) [Mass/Vol] 8.7 g/dL Low 11.6-15.5 [facility] Comment on above: Performed By: #### V ITD, LIPD, smear, CBCAD, CMP #### [facility] [address], [place] [id number] Lymphocytes (Bld) [#/Vol] 1.0 10*3/uL Normal 0.9-3.9 [facility] [employer] Comment on above: Performed By: #### V ITD, LIPD, smear, CBCAD, CMP #### [facility] [address], [place] [id number] Lymphocytes/100 WBC (Bld) 25.1 % Normal [facility] Comment on above: Performed By: #### V ITD, LIPD, smear, CBCAD, CMP #### [facility] [address], [place] [id number] MCH (RBC) [Entitic mass] 21.1 pg Low 27.0-33.0 [facility] Comment on above: Performed By: #### V ITD, LIPD, smear, CBCAD, CMP #### [facility] [address], [place] [id number] MCHC (RBC) [Mass/Vol] 28.6 g/dL Low 32.0-36.0 [facility] Comment on above: Performed By: #### V ITD, LIPD, smear, CBCAD, CMP #### [facility] [address], [place] [id number] MCV (RBC) [Entitic vol] 74 fL Low 80-100 [facility] [employer] Comment on above: Performed By: #### V ITD, LIPD, smear, CBCAD, CMP #### [facility] [address], [place] [id number] Monocytes (Bld) [#/Vol] 0.4 10*3/uL Normal 0.2-0.9 [facility] Comment on above: Performed By: #### V ITD, LIPD, smear, CBCAD, CMP #### [facility] [address], [place] [id number] Monocytes/100 WBC (Bld) 9.9 % Normal [facility] Comment on above: Performed By: #### V ITD, LIPD, smear, CBCAD, CMP #### [facility] [address], [place] [id number] Neutrophils (Bld) [#/Vol] 2.4 10*3/uL Normal 1.5-7.8 [facility] Comment on above: Performed By: #### V ITD, LIPD, smear, CBCAD, CMP #### [facility] [address], [place] [id number] Neutrophils/100 WBC (Bld) 61.3 % Normal [facility] Comment on above: Performed By: #### V ITD, LIPD, smear, CBCAD, CMP #### [facility] [address], [place] [id number] Platelet mean volume (Bld) [Entitic vol] 10.00 fL Normal 7.50-12.50 [facility] Comment on above: Performed By: #### V ITD, LIPD, smear, CBCAD, CMP #### [facility] [address], [place] [id number] Platelets (Bld) [#/Vol] 255 10*3/uL Normal 140-400 [facility] Comment on above: Performed By: #### V ITD, LIPD, smear, CBCAD, CMP #### [facility] [address], [place] [id number] RBC (Bld) [#/Vol] 4.13 10*6/uL Normal 3.90-5.20 [facility] Comment on above: Performed By: #### V ITD, LIPD, smear, CBCAD, CMP #### [facility] [address], [place] [id number] RDW-SD 46.7 fL Normal 37.0-50.0 [facility] Comment on above: Performed By: #### V ITD, LIPD, smear, CBCAD, CMP #### [facility] [address], [place] [id number] REFLEX Smear Review Normal [facility] Comment on above: Performed By: #### V ITD, LIPD, smear, CBCAD, CMP #### [facility] [address], [place] [id number] WBC (Bld) [#/Vol] 3.8 10*3/uL Normal 3.8-11.0 [facility] Comment on above: Performed By: #### V ITD, LIPD, smear, CBCAD, CMP #### [facility] [address], [place] [id number] Comprehensive Metabolic Pane [facility] 12-17-2021 Albumin [Mass/Vol] 4.1 g/dL Normal 3.6-5.1 [facility] [employer] Comment on above: Performed By: #### V ITD, LIPD, smear, CBCAD, CMP #### [facility] [address], [place] [id number] Albumin/Globulin [Mass ratio] 2.0 {ratio} Normal 1.0-2.5 [facility] Comment on above: Performed By: #### V ITD, LIPD, smear, CBCAD, CMP #### [facility] [address], [place] [id number] ALP [Catalytic activity/Vol] 85 U/L Normal 35-119 [facility] [employer] Comment on above: Performed By: #### V ITD, LIPD, smear, CBCAD, CMP #### [facility] [address], [place] [id number] ALT [Catalytic activity/Vol] 12 U/L Normal 6-33 [facility] [employer] Comment on above: Result Comment: 06/26 Female reference range changed. Performed By: #### V ITD, LIPD, smear, CBCAD, CMP #### [facility] [address], [place] [id number] Anion gap [Moles/Vol] 15 mmol/L Normal 12-20 [facility] Comment on above: Result Comment: Efflana ctive 08/01/2019 reference range changed. Performed By: #### V ITD, LIPD, smear, CBCAD, CMP #### [facility] [address], [place] [id number] AST [Catalytic activity/Vol] 18 U/L Normal 9-34 [facility] Comment on above: Performed By: #### V ITD, LIPD, smear, CBCAD, CMP #### [facility] [address], [place] [id number] Bilirubin [Mass/Vol] 0.47 mg/dL Normal 0.30-1.20 [facility] Comment on above: Performed By: #### V ITD, LIPD, smear, CBCAD, CMP #### [facility] [address], [place] [id number] BUN/CREA 28 Ratio High 6-22 [facility] Comment on above: Performed By: #### V ITD, LIPD, smear, CBCAD, CMP #### [facility] [address], [place] [id number] Calcium [Mass/Vol] 9.3 mg/dL Normal 8.6-10.2 [facility] Comment on above: Performed By: #### V ITD, LIPD, smear, CBCAD, CMP #### [facility] [address], [place] [id number] Chloride [Moles/Vol] 103 mmol/L Normal 98-107 [facility] Comment on above: Performed By: #### V ITD, LIPD, smear, CBCAD, CMP #### [facility] [address], [place] [id number] CO2 [Moles/Vol] 27 mmol/L Normal 20-31 [facility] Comment on above: Performed By: #### V ITD, LIPD, smear, CBCAD, CMP #### [facility] [address], [place] [id number] Creatinine [Mass/Vol] 0.6 mg/dL Normal 0.6-1.4 [facility] Comment on above: Performed By: #### V ITD, LIPD, smear, CBCAD, CMP #### [facility] [address], [place] [id number] eGFRAA 122 mL/min/1.73m2 Normal >60 [facility] Comment on above: Performed By: #### V ITD, LIPD, smear, CBCAD, CMP #### [facility] [address], [place] [id number] eGFRNAA 101 mL/min/1.73m2 Normal >60 [facility] Comment on above: Performed By: #### V ITD, LIPD, smear, CBCAD, CMP #### [facility] [address], [place] [id number] Globulin (S) [Mass/Vol] 2.1 g/dL Normal 1.9-3.7 [facility] Comment on above: Performed By: #### V ITD, LIPD, smear, CBCAD, CMP #### [facility] [address], [place] [id number] Glucose [Mass/Vol] 100 mg/dL High 65-99 [facility] Comment on above: Result Comment: For FASTING Glucose --- ADA reference ranges: Normal 65-99 mg/dl Prediabetes 100-125 Diabetes >/= 126 Performed By: #### V ITD, LIPD, smear, CBCAD, CMP #### [facility] [address], [place] [id number] Potassium [Moles/Vol] 4.8 mmol/L Normal 3.5-5.5 [facility] [employer] Comment on above: Performed By: #### V ITD, LIPD, smear, CBCAD, CMP #### [facility] [address], [place] [id number] Protein [Mass/Vol] 6.2 g/dL Normal 6.1-8.1 [facility] Comment on above: Performed By: #### V ITD, LIPD, smear, CBCAD, CMP #### [facility] [address], [place] [id number] Sodium [Moles/Vol] 140 mmol/L Normal 135-146 [facility] [place] [facility] Comment on above: Performed By: #### V ITD, LIPD, smear, CBCAD, CMP #### [facility] [address], [place] [id number] Urea nitrogen [Mass/Vol] 16 mg/dL Normal 7-25 [facility] [employer] Comment on above: Performed By: #### V ITD, LIPD, smear, CBCAD, CMP #### [facility] [address], [place] [id number] Hemoglobin A1Con 12-17-2021 EAG 122.63 Normal [facility] [employer] Comment on above: Performed By: #### A 1C #### [facility] [address], [place] [id number] HbA1c (Bld) [Mass fraction] 5.9 % Normal 4.0-6.0 [facility] Comment on above: Performed By: #### A 1C #### [facility] [address], [place] [id number] Lipid Panelon 12-17-2021 Cholesterol [Mass/Vol] 178 mg/dL Normal 125-200 [facility] [employer] Comment on above: Result Comment: Low risk < 200mg/dL Borderline risk 201-239 mg/dl High risk > or equal to 240 Performed By: #### V ITD, LIPD, smear, CBCAD, CMP #### [facility] [address], [place] [id number] Cholesterol in HDL [Mass/Vol] 54 mg/dL Normal >40 [facility] [employer] Comment on above: Result Comment: High Cardiovascular Risk HDL <40 mg/dL Low Cardiovascular Risk HDL > or equal to 60 mg/dl Performed By: #### V ITD, LIPD, smear, CBCAD, CMP #### [facility] [address], [place] [id number] Cholesterol in LDL [Mass/Vol] 111 mg/dL Normal [facility] [employer] Comment on above: Result Comment: LDL ATP III CLASSIFICATION LDL less than 100 mg/dl Optimal LDL 100-129 mg/dl Near or above optimal LDL 130-159 Borderline high LDL 160-189 High LDL greater than 189 mg/dl Very High Performed By: #### V ITD, LIPD, smear, CBCAD, CMP #### [facility] [address], [place] [id number] Cholesterol in VLDL [Mass/Vol] 13 mg/dL Normal [facility] Special[facility] Comment on above: Performed By: #### V ITD, LIPD, smear, CBCAD, CMP #### [facility] [address], [place] [id number] Cholesterol.total/C holesterol in HDL [Mass ratio] 3 {ratio} Normal [facility] Comment on above: Performed By: #### V ITD, LIPD, smear, CBCAD, CMP #### [facility] [address], [place] [id number] Triglyceride [Mass/Vol] 67 mg/dL Normal 30-150 [facility] Comment on above: Result Comment: TRIG ATPIII CLASSIFICATIONS TRIG less than 150 mg/dl Normal TRIG 150-199 mg/dl Borderline High TRIG 200-500 mg/dl High TRIG greather than 500 mg/dl Very High Performed By: #### V ITD, LIPD, smear, CBCAD, CMP #### [facility] [address], [place] [id number] Smear Reviewon 12-17-2021 PLT EST Adequate Normal [facility] Comment on above: Performed By: #### V ITD, LIPD, smear, CBCAD, CMP #### [facility] [address], [place] [id number] RBC morphology finding Nom (Bld) RBC morphology review confirms RBC indices Normal [facility] Comment on above: Performed By: #### V ITD, LIPD, smear, CBCAD, CMP #### [facility] [address], [place] [id number] Vitamin D 25-OHon 12-17-2021 VIT D 25 OH 48 ng/ml Normal >29 [facility] [employer] Comment on above: Result Comment: Miladys min D Status Deficiency <20 ng/mL Insufficiency 20-29 ng/mL Optimal 30-100 ng/mL Possible Toxicity >=150 ng/mL Performed By: #### V ITD, LIPD, smear, CBCAD, CMP #### [facility] [address], [place] [id number] Encounters Encounter Date Encounter Type Care Provider Facility Start: 01-01-2023 ambulatory JES YOUNG . Facility: Start: 12-16-2022 End: 12-16-2022 ambulatory NARENDRANATH LAKSHMIPATHY . Facility:[facility] Start: 12-02-2022 End: 12-03-2022 ambulatory JES ARIZAMIPATHY . Facility:[facility] Start: 11-24-2022 End: 12-24-2022 ambulatory [...] KING Facility:[facility] Start: 04-27-2022 End: 05-26-2022 ambulatory BERNSTEIN H JUNIEMIESHAAngel Facility:[facility] Start: 03-27-2022 End: 04-26-2022 ambulatory Mina AVI Facility:[facility] Start: 03-18-2022 End: 03-25-[address] TRUJILLO CHRISTINE Facility:[facility] Start: 02-24-2022 End: 03-26-2022 ambulatory BERNSTEIN Mina AVI Facility:[facility] Start: 01-24-2022 End: 02-21-2022 ambulatory Mina AVI Facility:[facility] Start: 01-08-2022 End: 01-09-[address] TRUJILLO CHRISTINE Facility:[facility] Start: 02-09-2018 Patient encounter KRISHNA PRATHERIM Fac ility:[id number] Start: 02-08-2018 Patient encounter KRISHNA ALLRED Fac ility:1532 Start: 02-08-2018 Patient encounter Facil ity:[id number] Start: 11-27-2017 End: 11-28-2017 Ambulatory DEFAULT PHYSICIAN Facility:[facility] Payers Date Payer Category Payer Medicare [id number] 1958 Unknown [id number] 1950 Unknown [id number] 2.16.84 [id number] 1950 Unknown [id number] 2.16.84 0.1.123575.3.579.2.593 1950 Unknown [id number] 2.16.84 0.1.088507.3.579.2.593 1950 Unknown [id number] 2.16.84 0.1.641591.3.579.2.593 1950 Unknown [id number] 2.16.84 0.1.543269.3.579.2.593 1950 Unknown [id number] 2.16.84 0.1.833297.3.579.2.593 1950 Unknown [id number] 2.16.84 0.1.145148.3.579.2.593 1950 Unknown [id number] 2.16.84 0.1.600591.3.579.2.593 1950 Unknown [id number] 2.16.84 0.1.944909.3.579.2.593 1950 Unknown [id number] 2.16.84 0.1.387328.3.579.2.593 1950 Unknown [id number] 2.16.84 0.1.939892.3.579.2.593 1950 Unknown [id number] 2.16.84 0.1.426558.3.579.2.593 1950 Unknown [id number] 2.16.84 0.1.100933.3.579.2.593 1950 Unknown [id number] 2.16.84 0.1.250870.3.579.2.593 1950 Unknown [id number] 2.16.84 0.1.271928.3.579.2.593 1950 Unknown [id number] 2.16.84 0.1.266898.3.579.2.593 1950 Unknown [id number] 2.16.84 0.1.991985.3.579.2.593 Medicare [id number] Unknown Consultation note 12-02-2022 Note Date & [...] our patients to inform us about any llga-uhw-ahulref medications or herbal remedies/nutritional supplements/alternative remedies. 2. [...] options with their primary care provider. [facility] Summary Purpose Family History No Family History Records FoundNo Family History Records FoundNo Family History Records FoundNo Family History Records FoundNo Family History Records Found Advance Directives No Advanced Directives Records FoundNo Advanced Directives Records FoundNo Advanced Directives Records FoundNo Advanced Directives Records FoundNo Advanced Directives Records Found Additional Source Comments INFORMATION SOURCE (unrecogn ized section and content) DATE CREATED AUTHOR 01/14/2018 [facility] DATE CREATED AUTHOR AUTHOR'S ORGANIZ ATION 02/11/2018 [facility] DATE CREATED AUTHOR AUTHOR'S ORGANIZ ATION 02/11/2018 [facility] DATE CREATED AUTHOR AUTHOR'S ORGANIZ ATION 12/18/2021 [facility] dical Specialist DATE CREATED AUTHOR AUTHOR'S ORGANIZ ATION 01/02/2023 [facility] FOR RECORDS PERTAINING TO PATIENTS WHO [...] BE BASED ON THE PRIMARY CLINICAL RECORDS. [facility]. provides no warranty or guarantee of the accuracy or completeness of information in this document.
--- NOTE | 2023-10-15 10:49 | P.CN_ITS ---
Consult Note: HPI Data of Consult Patient: known to practice within the last 3 years Requesting Physician: Perla Oreilly NP Primary Care Provider: CASSANDRA KING Consult Narrative Reason for consult: f/u Narrative: Leslie Mathis a pleasant 72 year old female presents for evaluation and management of chronic bilateral knee. Patient reports a history of fibromyalgia as well. Today rating pain 2-3/10 in bilateral knees. Patient is on warfarin and is advised not to take NSAIDs, however she continues to use aleve advil and motrin PRN but has her INR and PT checked. Patient has found benefit to duloxetine 60mg daily for fibromyalgia pain. Now reporting moderate relief from bilateral genicular RFAs. RUBINA improved to 33%, previously 38%+. Has noticed improvement in pain with increased duloxetine, tolerating 90mg daily well without side effects. cc:: CC: Perla Oreilly NP Review of Systems ROS Status of ROS 10 or more systems reviewed and unremark able except as noted in history and below PFSH PFSH Social History Smoking status: Never smoker Meds Home Medications and Allergies Home Medications ?Medication ?Instructions ?Recorded ?Confirmed ?Type acetaminophen 500 mg tablet 500 mg PO BID PRN pain 01/01/23 06/16/23 History (Tylenol Extra Strength) ascorbic acid (vitamin C) 500 mg 500 mg PO DAILY 01/01/23 06/16/23 History tablet calcium 100 mg capsule mg PO 01/01/23 History carvedilol 12.5 mg tablet 12.5 mg PO BID 01/01/23 06/16/23 History diltiazem HCl 240 mg capsule,24 240 mg PO DAILY 01/01/23 06/02/23 History hr,extended release ferrous sulfate 325 mg (65 mg 325 mg PO DAILY 01/01/23 06/16/23 History iron) tablet (iron) furosemide 20 mg tablet (Lasix) 20 mg PO BID 01/01/23 06/16/23 History ibuprofen 800 mg tablet 800 mg PO QDAY 01/01/23 07/16/23 History metaxalone 800 mg tablet 800 mg PO TID 01/01/23 06/16/23 History metformin 500 mg tablet 500 mg PO DAILY 01/01/23 06/16/23 History warfarin 5 mg tablet 5 mg PO DAILY 01/01/23 06/16/23 History duloxetine 30 mg capsule,delayed 30 mg PO .AM 07/16/23 07/16/23 History release (Cymbalta) duloxetine 30 mg capsule,delayed 30 mg PO .am #90 caps 08/06/23 Rx release duloxetine 60 mg capsule,delayed 60 mg PO .hs #90 caps 08/06/23 Rx release meclizine 25 mg tablet 25 mg PO TID PRN dizziness #14 tabs 08/15/23 Rx meclizine 25 mg tablet 25 mg PO TID PRN dizziness #20 tabs 08/15/23 Rx Allergies Allergy/AdvReac Type Severity Reaction Status Date / Time Penicillins Allergy Verified 04/14/23 10:35 Exam Constitutional Documenting provider has reviewed patient's vital signs: yes Common normals: no apparent distress, oriented x3, healthy appearing, alert and well nourished General appearance: cooperative HENMT Common normals: normocephalic, hearing grossly normal bilaterally and moist oral mucous membranes Head and scalp: normocephalic Eye Common normals: PERRL Pupil: PERRL Neck & C-Spine Common normals: full ROM General: normal visual inspection Chest Common normals: inspection of chest normal Respiratory Common normals: normal respiratory effort, no retractions and no use of accessory muscles Back & Pelvis Thoracic spine/upper back: normal to inspection and thoracic ROM normal Lumbar spine/lower back: normal to inspection, pain with ROM and straight leg raise negative bilaterally Sacroiliac joints: SI joints normal Other: positive bilateral facet loading Extremity Common normals: no calf tenderness and no pedal edema Right lower extremity: knee joint (enlarged, pain with weight bearing, limited ROM, weakness) Left lower extremity: knee joint (enlarged, pain with weight bearing, limited ROM, weakness) Neuro Common normals: oriented x3, CN's II-XII intact bilaterally, moves all extremities, no focal motor deficits, no sensory deficits noted and deep tendon reflexes 2+ bilaterally Sensorium/orientation: alert Motor exam: strength 5/5 throughout and no movement abnormalities noted Psych Common normals: mental status grossly normal, thought process normal, cooperative, affect normal, speech normal and activity/motor behavior normal Speech: normal speech Thought process: normal thought process Results Additional Findings Additional findings: If on a controlled substance or opioids, I have checked an [place] report on this patient and there are no aberrancies noted in the prescribing history.??If on a controlled substance or opioid a drug screen was completed and reviewed within the last year, and if there has not been a drug screen completed we ordered one today to monitor higher risk, state monitored pain medication use. As part of providing excellent, safe, comprehensive care, the following was completed at our patient's visit: 1. A medication reconciliation and review to ensure accurate knowledge of current/active medications, including asking our patients to inform us about any [id number] medications or herbal remedies/nutritional supplements/al ternative remedies. 2. A review to specifically ensure our patients have had annual screening for screening for depression, screening for tobacco use, and screening for unhealthy alcohol use. For concerning screenings had a discussion with the patient, provided patient education, and recommended follow-up with primary care provider when appropriate. If patient noted with a risk of falling, they received education on strength, gait, and balance training to prevent future risk of falling. Assessment and Plan Assessment and Plan (1) Chronic pain syndrome: (2) Fibromyalgia: (3) Muscle spasm: (4) Knee osteoarthritis: Plan TENS unit discussed and ordered, did not receive after prior visit. Patient has failed to benefit from PT and HEP and with chronic Fibromyalgia, Chronic pain syndrome, myofascial pain I believe this would significantly benefit her bilateral genicular RFAs providing 50% improvement in bilateral knee pain continue HEP as tolerated continue current medications, tolerating cymbalta 30mg AM 60mg HS well with improvement in pain
== END 2023-10-15 10:38 | disposition home or self-care (01) ==
LOC: PM 10:37
PROVIDERS: PCP Family Medicine; Visit Provider Nurse Practitioner
DX: G89.4 Chronic pain syndrome (principal); M79.7 Fibromyalgia; M62.838 Other muscle spasm; M17.9 Osteoarthritis of knee, unspecified
CPT/HCPCS: G0463

== ENCOUNTER 2023-10-26 00:20 | Outpatient (RCR) | payer MEDICARE, BC, SELFPAY | END 2023-11-24 17:48 | disposition home or self-care (01) | LOC: MM 00:20 | PROVIDERS: PCP Family Medicine; Visit Provider Internal Medicine | DX: Z51.81 Encounter for therapeutic drug level monitoring (principal); Z79.01 Long term (current) use of anticoagulants; I48.91 Unspecified atrial fibrillation | CPT/HCPCS: 85610; G0463 ==

== ENCOUNTER 2023-11-25 00:16 | Outpatient (RCR) | payer MEDICARE, BC, SELFPAY | END 2023-12-25 11:12 | disposition home or self-care (01) | LOC: MM 00:16 | PROVIDERS: PCP Family Medicine; Visit Provider Internal Medicine | DX: Z51.81 Encounter for therapeutic drug level monitoring (principal); Z79.01 Long term (current) use of anticoagulants; I48.91 Unspecified atrial fibrillation | CPT/HCPCS: 85610; G0463 ==

== ENCOUNTER 2023-12-28 00:17 | Outpatient (RCR) | payer MEDICARE, BC, SELFPAY | END 2024-01-22 09:57 | disposition home or self-care (01) | LOC: MM 00:17 | PROVIDERS: PCP Family Medicine; Visit Provider Internal Medicine | DX: Z51.81 Encounter for therapeutic drug level monitoring (principal); Z79.01 Long term (current) use of anticoagulants; I48.91 Unspecified atrial fibrillation ==

== ENCOUNTER 2024-01-25 00:38 | Outpatient (RCR) | payer MEDICARE, BC, SELFPAY | END 2024-02-24 09:37 | disposition home or self-care (01) | LOC: MM 00:38 | PROVIDERS: PCP Family Medicine; Visit Provider Internal Medicine | DX: Z51.81 Encounter for therapeutic drug level monitoring (principal); Z79.01 Long term (current) use of anticoagulants; I48.91 Unspecified atrial fibrillation | CPT/HCPCS: 85610; G0463 ==

== ENCOUNTER 2024-02-25 00:30 | Outpatient (RCR) | payer MEDICARE, BC, SELFPAY | END 2024-03-25 09:18 | disposition home or self-care (01) | LOC: MM 00:30 | PROVIDERS: PCP Family Medicine; Visit Provider Internal Medicine | DX: Z51.81 Encounter for therapeutic drug level monitoring (principal); Z79.01 Long term (current) use of anticoagulants; I48.91 Unspecified atrial fibrillation | CPT/HCPCS: 85610; G0463 ==

== ENCOUNTER 2024-03-15 09:45 | Outpatient (OUT) | payer MEDICARE, BC, SELFPAY ==
--- NOTE | 2024-03-15 09:49 | CA_ITS ---
Patient Name: MESFIN LOPEZ MR#: [id number] : 1950 Exam Date: 03/15/2024 Ordering Doctor: DR TRICIA MARQUEZ ECHOCARDIOGRAM REPORT PROCEDURE: CA ECHO DOPPLER COMPLETE INDICATIONS: Paroxysmal Afib, HTN, DODSON, LE edema, LA dilatation COMPARISON: None. DESCRIPTION: COMPLETE ECHOCARDIOGRAM Real-time transthoracic echocardiography with 2D, M-mode, spectral and color flow Doppler performed. QUALITY: Technical quality was good. LEFT VENTRICLE: Normal chamber size. Borderline left ventricular hypertrophy. Global left ventricular systolic function is normal. LV EF: Estimated left ventricular ejection fraction is 55%. DIASTOLIC: Not adequately assessed due to heart rhythm. ATRIAL SEPTUM: Doppler studies reveal an intra-cardiac shunt. Shunting appears to be left to right by color doppler. LEFT ATRIUM: Severe dilatation. RIGHT ATRIUM: Severe dilatation. RIGHT VENTRICLE: Normal chamber size. Normal right ventricular systolic function. TRICUSPID VALVE: Normal mobility and thickness. No stenosis with mild to moderate regurgitation. Mild pulmonary hypertension. RVSP 40 mmHg MITRAL VALVE: Normal mobility and thickness. No evidence of mitral valve stenosis. There is no mitral annular calcification. Trivial mitral regurgitation. AORTIC VALVE: Normal trileaflet appearance. Mildly calcified aortic valve. Normal mobility. No aortic valve stenosis. No aortic regurgitation. AORTIC ROOT: Normal diameter and appearance. PULMONIC VALVE: Normal thickness and mobility. No stenosis. Trivial regurgitation. PERICARDIUM: No evidence of pericardial effusion. IVC: Not well visualized. PLEURA: CONCLUSION: 1. Normal left ventricular size and systolic function. LVEF is 55%. 2. Normal right ventricular size and systolic function. 3. Severe biatrial dilatation. 4. Mild to moderate tricuspid regurgitation. 5. Mildly elevated right-sided pressures. 6. There is evidence of a small atrial septal defect with [id number] shunting by color Doppler. Adult Echocardiography Procedure Report Left Ventricle LVEDD (3.7 - 5.6 cm): 4.56 cm LVESD (2.2 - 4.0 cm): 3.12 cm LVIVS thickness (0.6 - 1.2 cm): 1.01 cm LVPW thickness (0.5 - 1.0 cm): 0.88 cm e': 0.14 m/s E - e': 6.51 LVOT Max Gradient: 2.09 mm[Hg] LVOT Area (cm2): 0.72 m/s Peak Velocity (LVOT): 0.72 m/s Mean Velocity (LVOT): 0.48 m/s LVOT Diameter 1.95 cm Left Ventricular Ejection Fraction: 55% Left Atrium LA Volume Index (2D A2C): 60.33 ml/m2 Left Atrium Systolic Dimension: 4.68 cm Mitral Valve Mitral Valve E-Wave Peak Velocity: 0.89 m/s Right Ventricle RV Internal Diastolic Dimension: 3.60 cm Aorta AO Root Diam: 2.74 cm Ascending Ao Diam: 3.04 cm Aortic Valve AoV Area (Peak Rk): 1.59 cm2, 1.59 cm2 AoV Area (VTI): 1.81 cm2, 1.81 cm2 Peak Velocity(Antegrade Flow): 1.36 m/s Peak Gradient(Antegrade Flow): 7.40 mm[Hg] Mean Velocity(Antegrade Flow): 0.83 m/s Mean Gradient(Antegrade Flow): 3.38 mm[Hg] Velocity Time Integral: 24.77 cm Tricuspid Valve Peak Velocity (Regurgitant Flow): 2.67 m/s, 2.75 m/s, 3.03 m/s, 2.74 m/s Pulmonic Valve Mean Gradient: 2.04 mm[Hg], 1.88 mm[Hg], 2.11 mm[Hg] Mean Velocity: 0.68 m/s, 0.65 m/s, 0.71 m/s Peak Velocity: 0.88 m/s Peak Gradient: 3.21 mm[Hg], 2.90 mm[Hg], 3.21 mm[Hg] Right Atrium Right Atrium Systolic Pressure: 98.73 ml, 98.73 ml Dictated by: Good Valentin M.D. on 03/15/2024 at 18:59 Approved by: Good Valentin M.D. on 03/15/2024 at 19:05
--- OUTSIDE RECORDS SUMMARY | 2024-03-15 10:02 | XMS_ITS | CCD ---
Author Organization [facility] Care Team Providers Care Psych Social Worker Name Role Phone PHYSICIAN, DEFAULT Unavailable Unavailable PHYSICIAN, DEFAULT Unavailable Unavailable ALLRED, KELLER Unavailable Unavailable CHRISTINE, RUGEN Unavailable Unavailable ALLRED, KELLER Unavailable Unavailable CHRISTINE, LEONAEN Unavailable Unavailable CHRISTINE, DR TRUJILLO Primary Care Unavailable FAWWAAngel, BERNSTEIN H Attending Unavailable FAWWAD, BERNSTEIN H Admitting Unavailable CHRISTINE, DR TRUJILLO Primary Care Unavailable FAWWAAngel, BERNSTEIN H Attending Unavailable FAWWAD, BERNSTEIN H Admitting Unavailable CHRISTINE, DR TRUJILLO Primary Care Unavailable FAWWAD, BERNSTEIN H Attending Unavailable FAWWAD, BERNSTEIN H Admitting Unavailable LAKSHMIPATHY ., NARENDRANATH Admitting Li vailable LAKSHMIPATHY ., SCARLETENDCARMENATH Consulting Li vailable CHRISTINE, DR TRUJILLO Primary Care Unavailable LAKSHMIPATHY ., MARTINAATH Attending Li vailable CHRISTINE, DR TRUJILLO Primary Care Unavailable FAWWAAngel, BERNSTEIN H Attending Unavailable FAWWAD, BERNSTEIN H Admitting Unavailable LAKSHMIPATHY ., NARENDRANATH Attending Li vailable LAKSHMIPATHY ., NARENDRANATH Admitting Li vailable CHRISTINE, [...] DR TRUJILLO Primary Care Unavailable LAKSHMIPATHY ., NARENDRANIRMA Consulting Li vailable LAKSHMIPATHY ., NARENDRANATH Attending Li vailable CHRISTINE, VENECIA Berman Attending Unavailable HEMMERTRICIA Attending Unavailable HEMMER, TRICIA Berman Attending Unavailable Allergies Allergy Classification Reported Allergen(s) Allergy Type Date of Onset Reaction(s) Facility (2 sources) Penicillins Drug allergy (disorder) 07-12-2016 [facility] Repository Problems Active Problems Problem Classification [...] Onset: 11-22-2022 Episodic Other aftercare (1 source) nursing home (current) use of anticoagulants; Translations: [SNF CURRNT USE ANTICOAGULANTS] Onset: 12-24-2022 Episodic Other [...] Coag (PPP) [Relative time] 1.02 {INR} Normal [facility] Comment on above: Performed By: #### P T #### [facility] [address] [place] [address] Dr. Justyn Quintanilla INR GUIDELINES SEE BELOW Normal [facility] Comment on above: Result Comment: THAI RED INR: 2.0 - 3.0 CONDITIONS NOT LISTED BELOW 2.5 - 3.5 FOR PROSTHETIC HEART VALVE REPLACEMENT 2.5 - 3.5 RECURRENT THROMBOSIS Performed By: #### P T #### [facility] [address] [place] [address] Dr. Justyn Quintanilla PT Coag (PPP) [Time] 10.8 s Normal 9.0-11.6 [facility] Comment on above: Performed By: #### P T #### [facility] [address] [place] [address] Dr. Justyn Quintanilla CBC AUTO DIFFon 05-22-2022 BASO # 0.0 103/ul Normal 0.0-0.1 [facility] Comment on above: Performed By: #### C BC #### [facility] [address] [place] [address] Dr. Justyn Quintanilla Basophils/100 WBC (Bld) 0.5 % Normal 0.2-2.0 [facility] Comment on above: Performed By: #### C BC #### [facility] [address] [place] [address] Dr. Justyn Quintanilla EO # 0.1 103/ul Normal 0.0-0.7 [facility] Comment on above: Performed By: #### C BC #### [facility] [address] [place] [address] Dr. Justyn Quintanilla Eosinophils/100 WBC (Bld) 2.9 % Normal 0.9-7.0 [facility] Comment on above: Performed By: #### C BC #### [facility] [address] [place] [address] Dr. Justyn Quintanilla Erythrocyte distribution width (RBC) [Ratio] 20.7 % Critically high 11.0-15.0 [facility] Comment on above: Performed By: #### C BC #### [facility] [address] [place] [address] Dr. Justyn Quintanilla Hematocrit (Bld) [Volume fraction] 29.7 % Critically low 36.0-48.0 [facility] Comment on above: Performed By: #### C BC #### [facility] [address] [place] [address] Dr. Justyn Quintanilla Hemoglobin (Bld) [Mass/Vol] 9.0 g/dL Critically low 12.0-16.0 [facility] Comment on above: Performed By: #### C BC #### [facility] [address] [place] [address] Dr. Justyn Quintanilla IG # 0.01 10e3/ul Normal 0.00-0.03 [facility] Comment on above: Performed By: #### C BC #### [facility] [address] [place] [address] Dr. Justyn Quintanilla IG % 0.2 % Normal 0.0-0.5 [facility] Comment on above: Performed By: #### C BC #### [facility] [address] [place] [address] Dr. Justyn Quintanilla LYMPH # 1.2 103/ul Normal 1.2-3.8 [facility] Comment on above: Performed By: #### C BC #### [facility] [address] [place] [address] Dr. Justyn Quintanilla Lymphocytes/100 WBC (Bld) 29.0 % Normal 20.5-60.0 [facility] Comment on above: Performed By: #### C BC #### [facility] [address] [place] [address] Dr. Justyn Quintanilla MANUAL DIFF REQ NO Normal [facility] Comment on above: Performed By: #### C BC #### [facility] [address] [place] [address] Dr. Justyn Quintanilla MCH (RBC) [Entitic mass] 28.6 pg Normal 26.7-34.0 [facility] Comment on above: Performed By: #### C BC #### [facility] [address] [place] [address] Dr. Justyn Quintanilla MCHC (RBC) [Mass/Vol] 30.3 g/dL Normal 29.9-35.2 [facility] Comment on above: Performed By: #### C BC #### [facility] [address] [place] [address] Dr. Justyn Quintanilla MCV (RBC) [Entitic vol] 94.3 fL Normal 81.0-99.0 [facility] Comment on above: Performed By: #### C BC #### [facility] [address] [place] [address] Dr. Justyn Quintanilla MONO # 0.4 103/ul Normal 0.3-0.8 [facility] Comment on above: Performed By: #### C BC #### [facility] [address] [place] [address] Dr. Justyn Quintanilla Monocytes/100 WBC (Bld) 9.8 % Normal 1.7-12.0 [facility] Comment on above: Performed By: #### C BC #### [facility] [address] [place] [address] Dr. Justyn Quintanilla NEUT # 2.3 103/ul Normal 1.4-6.5 [facility] Comment on above: Performed By: #### C BC #### [facility] [address] [place] [address] Dr. Justyn Quintanilla Neutrophils/100 WBC (Bld) 57.6 % Normal 43.0-75.0 [facility] Comment on above: Performed By: #### C BC #### [facility] [address] [place] [address] Dr. Justyn Quintanilla Platelet mean volume (Bld) [Entitic vol] 9.2 fL Critically low 9.5-13.5 [facility] Comment on above: Performed By: #### C BC #### [facility] [address] [place], [place] [address] Dr. Justyn Quintanilla PLT 361 103/ul Normal 150-450 [facility] Comment on above: Performed By: #### C BC #### [facility] [address] [place], [place] [address] Dr. Justyn Quintanilla RBC 3.15 106/ul Critically low 4.20-5.40 [facility] Comment on above: Performed By: #### C BC #### [facility] [address] [place], [place] [address] Dr. Justyn Quintanilla WBC 4.1 103/ul Normal 4.0-11.0 [facility] Comment on above: Performed By: #### C BC #### [facility] [address] [place], [place] [address] Dr. Justyn Quintanilla MG MAMM SCREEN 3D JACQUELINE CADon 01-08-2022 MG MAMM SCREEN 3D JACQUELINE CAD Patient: MESFIN LOPEZ Exam Date: 01/08/2022 : 1950 Gender:F Ordering : DR VENECIA KING M.D. Admission #: [id number] Family : Order #: [id number] CLICK HERE TO VIEW EXAM RADIOLOGY REPORT [...] breast cancer at age 81. LOCATION: [facility] BREAST COMPOSITION: Scattered areas fibroglandular density. [...] Pro MD on 01/23/2022 at 08:05 Normal [facility] XR DEXA BONE DENSITYon 01-08 XR [...] by: CINTHYA PHAM Date: 2022-01-08 18:00 Normal [facility] Complete Blood Count with Au to Diffon 12-17-2021 Basophils (Bld) [#/Vol] 0.05 10*3/uL Normal 0.00-0.20 [facility] Social Scientist Comment on above: Performed By: #### V ITD, LIPD, smear, CBCAD, CMP #### [facility] [address], [place] [id number] Basophils/100 WBC (Bld) 1.3 % Normal [facility] Social Scientist Comment on above: Performed By: #### V ITD, LIPD, smear, CBCAD, CMP #### [facility] [address] [place], [place] [id number] Eosinophils (Bld) [#/Vol] 0.08 10*3/uL Normal 0.02-0.50 [facility] Social Scientist Comment on above: Performed By: #### V ITD, LIPD, smear, CBCAD, CMP #### [facility] [address], [place] [id number] Eosinophils/100 WBC (Bld) 2.1 % Normal [facility] Social Scientist Comment on above: Performed By: #### V ITD, LIPD, smear, CBCAD, CMP #### [facility] [address], [place] [id number] Erythrocyte distribution width (RBC) [Ratio] 17.8 % High 11.0-15.0 [facility] Specialist Comment on above: Performed By: #### V ITD, LIPD, smear, CBCAD, CMP #### [facility] [address], [place] [id number] Hematocrit (Bld) [Volume fraction] 30.4 % Low 35.0-47.0 [facility] Social Scientist Comment on above: Performed By: #### V ITD, LIPD, smear, CBCAD, CMP #### [facility] [address], [place] [id number] Hemoglobin (Bld) [Mass/Vol] 8.7 g/dL Low 11.6-15.5 [facility] Social Scientist Comment on above: Performed By: #### V ITD, LIPD, smear, CBCAD, CMP #### [facility] [address], [place] [id number] Lymphocytes (Bld) [#/Vol] 1.0 10*3/uL Normal 0.9-3.9 [facility] Specialist Comment on above: Performed By: #### V ITD, LIPD, smear, CBCAD, CMP #### [facility] [address], [place] [id number] Lymphocytes/100 WBC (Bld) 25.1 % Normal [facility] Specialist Comment on above: Performed By: #### V ITD, LIPD, smear, CBCAD, CMP #### [facility] [address], [place] [id number] MCH (RBC) [Entitic mass] 21.1 pg Low 27.0-33.0 [facility] Social Scientist Comment on above: Performed By: #### V ITD, LIPD, smear, CBCAD, CMP #### [facility] [address], [place] [id number] MCHC (RBC) [Mass/Vol] 28.6 g/dL Low 32.0-36.0 [facility] Social Scientist Comment on above: Performed By: #### V ITD, LIPD, smear, CBCAD, CMP #### [facility] [address] [place], [place] [id number] MCV (RBC) [Entitic vol] 74 fL Low 80-100 [facility] Specialist Comment on above: Performed By: #### V ITD, LIPD, smear, CBCAD, CMP #### [facility] [address], [place] [id number] Monocytes (Bld) [#/Vol] 0.4 10*3/uL Normal 0.2-0.9 [facility] Specialist Comment on above: Performed By: #### V ITD, LIPD, smear, CBCAD, CMP #### [facility] [address], [place] [id number] Monocytes/100 WBC (Bld) 9.9 % Normal [facility] Specialist Comment on above: Performed By: #### V ITD, LIPD, smear, CBCAD, CMP #### [facility] [address], [place] [id number] Neutrophils (Bld) [#/Vol] 2.4 10*3/uL Normal 1.5-7.8 [facility] Specialist Comment on above: Performed By: #### V ITD, LIPD, smear, CBCAD, CMP #### [facility] [address], [place] [id number] Neutrophils/100 WBC (Bld) 61.3 % Normal [facility] Specialist Comment on above: Performed By: #### V ITD, LIPD, smear, CBCAD, CMP #### [facility] [address], [place] [id number] Platelet mean volume (Bld) [Entitic vol] 10.00 fL Normal 7.50-12.50 [facility] Specialist Comment on above: Performed By: #### V ITD, LIPD, smear, CBCAD, CMP #### [facility] [address], [place] [id number] Platelets (Bld) [#/Vol] 255 10*3/uL Normal 140-400 [facility] Specialist Comment on above: Performed By: #### V ITD, LIPD, smear, CBCAD, CMP #### [facility] [address], [place] [id number] RBC (Bld) [#/Vol] 4.13 10*6/uL Normal 3.90-5.20 [facility] Specialist Comment on above: Performed By: #### V ITD, LIPD, smear, CBCAD, CMP #### [facility] [address], [place] [id number] RDW-SD 46.7 fL Normal 37.0-50.0 [facility] Specialist Comment on above: Performed By: #### V ITD, LIPD, smear, CBCAD, CMP #### [facility] [address], [place] [id number] REFLEX Smear Review Normal [facility] Specialist Comment on above: Performed By: #### V ITD, LIPD, smear, CBCAD, CMP #### [facility] [address], [place] [id number] WBC (Bld) [#/Vol] 3.8 10*3/uL Normal 3.8-11.0 [facility] Social Scientist Comment on above: Performed By: #### V ITD, LIPD, smear, CBCAD, CMP #### [facility] [address], [place] [id number] Comprehensive Metabolic Pane [facility] 12-17-2021 Albumin [Mass/Vol] 4.1 g/dL Normal 3.6-5.1 [facility] Social Scientist Comment on above: Performed By: #### V ITD, LIPD, smear, CBCAD, CMP #### [facility] [address] [place], [place] [id number] Albumin/Globulin [Mass ratio] 2.0 {ratio} Normal 1.0-2.5 [facility] Specialist Comment on above: Performed By: #### V ITD, LIPD, smear, CBCAD, CMP #### [facility] [address] [place], [place] [id number] ALP [Catalytic activity/Vol] 85 U/L Normal 35-119 [facility] Social Scientist Comment on above: Performed By: #### V ITD, LIPD, smear, CBCAD, CMP #### [facility] [address] [place], [place] [id number] ALT [Catalytic activity/Vol] 12 U/L Normal 6-33 [facility] Specialist Comment on above: Result Comment: 06/26 Female reference range changed. Performed By: #### V ITD, LIPD, smear, CBCAD, CMP #### [facility] [address], [place] [id number] Anion gap [Moles/Vol] 15 mmol/L Normal 12-20 [facility] Comment on above: Result Comment: Karley freedive 08/01/2019 reference range changed. Performed By: #### V ITD, LIPD, smear, CBCAD, CMP #### [facility] [address], [place] [id number] AST [Catalytic activity/Vol] 18 U/L Normal 9-34 [facility] Comment on above: Performed By: #### V ITD, LIPD, smear, CBCAD, CMP #### [facility] [address] [place], [place] [id number] Bilirubin [Mass/Vol] 0.47 mg/dL Normal 0.30-1.20 [facility] Comment on above: Performed By: #### V ITD, LIPD, smear, CBCAD, CMP #### [facility] [address], [place] [id number] BUN/CREA 28 Ratio High 6-22 [facility] Specialist Comment on above: Performed By: #### V ITD, LIPD, smear, CBCAD, CMP #### [facility] [address] [place], [place] [id number] Calcium [Mass/Vol] 9.3 mg/dL Normal 8.6-10.2 [facility] Comment on above: Performed By: #### V ITD, LIPD, smear, CBCAD, CMP #### [facility] [address], [place] [id number] Chloride [Moles/Vol] 103 mmol/L Normal 98-107 [facility] Specialist Comment on above: Performed By: #### V ITD, LIPD, smear, CBCAD, CMP #### [facility] [address], [place] [id number] CO2 [Moles/Vol] 27 mmol/L Normal 20-31 [facility] Specialist Comment on above: Performed By: #### V ITD, LIPD, smear, CBCAD, CMP #### [facility] [address], [place] [id number] Creatinine [Mass/Vol] 0.6 mg/dL Normal 0.6-1.4 [facility] Specialist Comment on above: Performed By: #### V ITD, LIPD, smear, CBCAD, CMP #### [facility] [address], [place] [id number] eGFRAA 122 mL/min/1.73m2 Normal >60 [facility] Specialist Comment on above: Performed By: #### V ITD, LIPD, smear, CBCAD, CMP #### [facility] [address], [place] [id number] eGFRNAA 101 mL/min/1.73m2 Normal >60 [facility] Specialist Comment on above: Performed By: #### V ITD, LIPD, smear, CBCAD, CMP #### [facility] [address], [place] [id number] Globulin (S) [Mass/Vol] 2.1 g/dL Normal 1.9-3.7 [facility] Specialist Comment on above: Performed By: #### V ITD, LIPD, smear, CBCAD, CMP #### [facility] [address], [place] [id number] Glucose [Mass/Vol] 100 mg/dL High 65-99 [facility] Social Scientist Comment on above: Result Comment: For FASTING Glucose --- ADA reference ranges: Normal 65-99 mg/dl Prediabetes 100-125 Diabetes >/= 126 Performed By: #### V ITD, LIPD, smear, CBCAD, CMP #### [facility] [address], [place] [id number] Potassium [Moles/Vol] 4.8 mmol/L Normal 3.5-5.5 [facility] Social Scientist Comment on above: Performed By: #### V ITD, LIPD, smear, CBCAD, CMP #### [facility] [address], [place] [id number] Protein [Mass/Vol] 6.2 g/dL Normal 6.1-8.1 [facility] Social Scientist Comment on above: Performed By: #### V ITD, LIPD, smear, CBCAD, CMP #### [facility] [address], [place] [id number] Sodium [Moles/Vol] 140 mmol/L Normal 135-146 [facility] Comment on above: Performed By: #### V ITD, LIPD, smear, CBCAD, CMP #### [facility] [address] [place], [place] [id number] Urea nitrogen [Mass/Vol] 16 mg/dL Normal 7-25 [facility] Specialist Comment on above: Performed By: #### V ITD, LIPD, smear, CBCAD, CMP #### [facility] [address], [place] [id number] Hemoglobin A1Con 12-17-2021 EAG 122.63 Normal [facility] Comment on above: Performed By: #### A 1C #### [facility] [address], [place] [id number] HbA1c (Bld) [Mass fraction] 5.9 % Normal 4.0-6.0 [facility] Comment on above: Performed By: #### A 1C #### [facility] [address], [place] [id number] Lipid Panelon 12-17-2021 Cholesterol [Mass/Vol] 178 mg/dL Normal 125-200 [facility] Specialist Comment on above: Result Comment: Low risk < 200mg/dL Borderline risk 201-239 mg/dl High risk > or equal to 240 Performed By: #### V ITD, LIPD, smear, CBCAD, CMP #### [facility] [address] [place], [place] [id number] Cholesterol in HDL [Mass/Vol] 54 mg/dL Normal >40 [facility] Specialist Comment on above: Result Comment: High Cardiovascular Risk HDL <40 mg/dL Low Cardiovascular Risk HDL > or equal to 60 mg/dl Performed By: #### V ITD, LIPD, smear, CBCAD, CMP #### [facility] [address] [place], [place] [id number] Cholesterol in LDL [Mass/Vol] 111 mg/dL Normal [facility] Comment on above: Result Comment: LDL ATP III CLASSIFICATION LDL less than 100 mg/dl Optimal LDL 100-129 mg/dl Near or above optimal LDL 130-159 Borderline high LDL 160-189 High LDL greater than 189 mg/dl Very High Performed By: #### V ITD, LIPD, smear, CBCAD, CMP #### [facility] [address], [place] [id number] Cholesterol in VLDL [Mass/Vol] 13 mg/dL Normal [facility] Specialist Comment on above: Performed By: #### V ITD, LIPD, smear, CBCAD, CMP #### [facility] [address], [place] [id number] Cholesterol.total/C holesterol in HDL [Mass ratio] 3 {ratio} Normal [facility] Specialist Comment on above: Performed By: #### V ITD, LIPD, smear, CBCAD, CMP #### [facility] [address] [place], [place] [id number] Triglyceride [Mass/Vol] 67 mg/dL Normal 30-150 [facility] Specialist Comment on above: Result Comment: TRIG ATPIII CLASSIFICATIONS TRIG less than 150 mg/dl Normal TRIG 150-199 mg/dl Borderline High TRIG 200-500 mg/dl High TRIG greather than 500 mg/dl Very High Performed By: #### V ITD, LIPD, smear, CBCAD, CMP #### [facility] [address], [place] [id number] Smear Reviewon 12-17-2021 PLT EST Adequate Normal [facility] Specialist Comment on above: Performed By: #### V ITD, LIPD, smear, CBCAD, CMP #### [facility] [address], [place] [id number] RBC morphology finding Nom (Bld) RBC morphology review confirms RBC indices Normal [facility] Specialist Comment on above: Performed By: #### V ITD, LIPD, smear, CBCAD, CMP #### [facility] [address], [place] [id number] Vitamin D 25-OHon 12-17-2021 VIT D 25 OH 48 ng/ml Normal >29 [facility] Social Scientist Comment on above: Result Comment: Miladys min D Status Deficiency <20 ng/mL Insufficiency 20-29 ng/mL Optimal 30-100 ng/mL Possible Toxicity >=150 ng/mL Performed By: #### V ITD, LIPD, smear, CBCAD, CMP #### [facility] [address], [place] [id number] Encounters Encounter Date Encounter Type Care Provider Facility Start: 03-07-2024 End: 03-07-2024 ambulatory TRICIA FELIPE Not Available Start: 12-25-2023 End: 12-25-2023 ambulatory TRICIA FELIPE Not Available Start: 12-18-2023 End: 12-18-2023 ambulatory VENECIA OGDENA Not Available Start: 10-20-2023 End: 10-20-2023 ambulatory VENECIA Berman CHRISTINE Not Available Start: 01-01-2023 ambulatory NARENDRANATH LAKSHMIPAT HY . Facility:[facility] Start: 12-16-2022 End: 12-16-2022 ambulatory NARENDRANATH LAKSHMIPATHY . Facility:[facility] Start: 12-02-2022 End: 12-03-2022 ambulatory NARENDRANATH LAKSHMIPATHY . Facility:[facility] Start: 11-24-2022 End: 12-24-2022 ambulatory [...] KING Facility:[facility] Start: 04-27-2022 End: 05-26-2022 ambulatory SHAIKH Mina CÁRDENAS Facility:[facility] Start: 03-27-2022 End: 04-26-2022 ambulatory SHAIKH Mina CÁRDENAS Facility:[facility] Start: 03-18-2022 End: 03-25-[address] VENECIA KING Facility:[facility] Start: 02-24-2022 End: 03-26-2022 ambulatory SHAIKH Mina CÁRDENAS Facility:[facility] Start: 01-24-2022 End: 02-21-2022 ambulatory SHAIKH Mina MÉNDEZAngel Facility:[facility] Start: 01-08-2022 End: 01-09-[address] VENECIA KING Facility:[facility] Start: 02-09-2018 Patient encounter KRISHNA ALLRED Fac ility:[id number] Start: 02-08-2018 Patient encounter KRISHNA Jacques ility:[id number] Start: 02-08-2018 Patient encounter Facil ity:[id number] Start: 11-27-2017 End: 11-28-2017 Ambulatory DEFAULT PHYSICIAN Facility:[facility] Payers Date Payer Category Payer Medicare [id number] 1958 Unknown [id number] 1950 Unknown [id number] 2.16.84 0.1.311994.3.579.2.593 1950 Unknown [id number] 2..84 0.1.855579.3.579.2.593 1950 Unknown [id number] 2.16.84 0.1.696781.3.579.2.593 1950 Unknown [id number] 2.16.84 0.1.262285.3.579.2.593 1950 Unknown [id number] 2.16.84 0.1.638480.3.579.2.593 1950 Unknown [id number] 2.16.84 0.1.521485.3.579.2.593 1950 Unknown [id number] 2.16.84 0.1.513407.3.579.2.593 1950 Unknown [id number] 2.16.84 0.1.645602.3.579.2.593 1950 Unknown [id number] 2.16.84 0.1.836587.3.579.2.593 1950 Unknown [id number] 2.16.84 0.1.760794.3.579.2.593 1950 Unknown [id number] 2.16.84 0.1.118090.3.579.2.593 1950 Unknown [id number] 2.16.84 0.1.422350.3.579.2.593 1950 Unknown [id number] 2.16.84 0.1.840751.3.579.2.593 1950 Unknown [id number] 2.16.84 0.1.617856.3.579.2.593 1950 Unknown [id number] 2.16.84 0.1.586013.3.579.2.593 1950 Unknown [id number] 2.16.84 0.1.888966.3.579.2.593 1950 Unknown [id number] 2.16.84 0.1.749797.3.579.2.593 1950 Unknown [id number] 2.16.84 0.1.430830.3.579.2.1259 1950 Unknown [id number] 2.16.84 0.1.142671.3.579.2.1259 1950 Unknown [id number] 2.16.84 0.1.179473.3.579.2.1259 1950 Unknown [id number] 2.16.84 0.1.463487.3.579.2.1259 Medicare [id number] Unknown Consultation note 12-02-2022 Note Date & [...] our patients to inform us about any tqaf-dri-qejmndi medications or herbal remedies/nutritional supplements/alternative remedies. 2. [...] options with their primary care provider. [facility] Summary Purpose Family History No Family [...] section and content) DATE CREATED AUTHOR 01/14/2018 [facility] DATE CREATED AUTHOR AUTHOR'S ORGANIZ ATION 02/11/2018 [facility] DATE CREATED AUTHOR AUTHOR'S ORGANIZ ATION 02/11/2018 [facility] DATE CREATED AUTHOR AUTHOR'S ORGANIZ ATION 12/18/2021 [facility] dical Specialist DATE CREATED AUTHOR AUTHOR'S ORGANIZ ATION 01/02/2023 [facility] pital DATE CREATED AUTHOR AUTHOR'S ORGANIZ ATION 03/08/2024 [facility] dical Specialists [facility] FOR RECORDS PERTAINING TO PATIENTS WHO ARE [...] BE BASED ON THE PRIMARY CLINICAL RECORDS. [facility] [employer] [facility] provides no warranty or guarantee of the accuracy or completeness of information in this document.
== END 2024-03-15 09:46 | disposition home or self-care (01) ==
LOC: CARD 09:45
PROVIDERS: PCP Family Medicine; Visit Provider Physician Assistant
DX: I48.0 Paroxysmal atrial fibrillation (principal); I51.7 Cardiomegaly; R06.09 Other forms of dyspnea; R22.43 Localized swelling, mass and lump, lower limb, bilateral; I11.0 Hypertensive heart disease with heart failure
CPT/HCPCS: 93306

== ENCOUNTER 2024-03-28 00:53 | Outpatient (RCR) | payer MEDICARE, BC, SELFPAY | END 2024-04-25 23:51 | disposition home or self-care (01) | LOC: MM 00:53 | PROVIDERS: PCP Family Medicine; Visit Provider Internal Medicine | DX: Z51.81 Encounter for therapeutic drug level monitoring (principal); Z79.01 Long term (current) use of anticoagulants; I48.91 Unspecified atrial fibrillation | CPT/HCPCS: 85610; G0463 ==

== ENCOUNTER 2024-04-05 10:13 | Outpatient (OUT) | payer MEDICARE, BC, SELFPAY ==
--- NOTE | 2024-04-05 10:16 | MM_ITS ---
Patient Name: MESFIN LOPEZ MR#: [id number] : 1950 Exam Date: 04/05/2024 Ordering Doctor: DR TRICIA MARQUEZ RADIOLOGY REPORT PROCEDURE: MM TOMOSYNTHESIS SCREENING BI COMPARISON: MM TOMOSYNTHESIS SCREENING BI, 04/01/2023. MG MAMM SCREEN 3D JACQUELINE CAD, 01/08/2022. MG MAMM SCREEN 3D JACQUELINE CAD, 10/09/2020. MG MAMM JACQUELINE SCRN W CAD DIG, 10/19/2013. INDICATIONS: Screening Calculator Name NCI Breast Cancer Risk Assessment Tool 5 Year Breast Cancer Risk 3.80% Lifetime Breast Cancer Risk 9.70% Personal Breast Cancer No Personal Ovarian Cancer No Treatments None Family Cancers Mother with breast cancer at age ~80. LOCATION: [facility] BREAST COMPOSITION: There are scattered areas of fibroglandular density. FINDINGS: DIAGNOSTIC CATEGORY 2--BENIGN FINDING: RIGHT BREAST: No significant suspicious finding. Scattered benign-appearing calcifications are present. No significant change has occurred. LEFT BREAST: No significant suspicious finding. Scattered benign-appearing calcifications are present. No significant change has occurred. RECOMMENDATIONS: ROUTINE MAMMOGRAM AND CLINICAL EVALUATION IN 12 MONTHS. PLEASE NOTE: A NORMAL MAMMOGRAM DOES NOT EXCLUDE THE POSSIBILITY OF BREAST CANCER. A CLINICALLY SUSPICIOUS PALPABLE LUMP SHOULD BE BIOPSIED. Dictated by: Jasper Hoffmann M.D. on 04/05/2024 at 17:06 Approved by: Jasper Hoffmann M.D. on 04/05/2024 at 17:13
--- OUTSIDE RECORDS SUMMARY | 2024-04-05 10:26 | XMS_ITS | CCD ---
Author Organization [facility] Care Team Providers Care Entomology Professor Name Role Phone PHYSICIAN, DEFAULT Unavailable Unavailable [...] CHRISTINE, DR TRUJILLO Primary Care Unavailable FAWWAD, BERNTSEIN H Attending Unavailable FAWWAD, BERNSTEIN H Admitting [...] Attending Unavailable HEMMER, TRICIA Berman Attending Unavailable CHRISTINE, VENECIA Berman Attending Unavailable Allergies Allergy Classification Reported Allergen(s) Allergy Type Date of Onset Reaction(s) Facility (2 sources) Penicillins Drug allergy (disorder) 07-12-2016 [facility] Repository Problems Active Problems Problem Classification [...] Onset: 11-22-2022 Episodic Other aftercare (1 source) senior care (current) use of anticoagulants; Translations: [CUSTODIAL CURRNT USE ANTICOAGULANTS] Onset: 12-24-2022 Episodic Other [...] (PPP) [Relative time] 1.02 {INR} Normal [facility] Comment on above: Performed By: #### P T #### [facility] [address] [place] [address] Dr. Justyn Quintanilla INR GUIDELINES SEE BELOW Normal [facility] Comment on above: Result Comment: THAI RED INR: 2.0 - 3.0 CONDITIONS NOT LISTED BELOW 2.5 - 3.5 FOR PROSTHETIC HEART VALVE REPLACEMENT 2.5 - 3.5 RECURRENT THROMBOSIS Performed By: #### P T #### [facility] [address] [place] [address] Dr. Justyn Quintanilla PT Coag (PPP) [Time] 10.8 s Normal 9.0-11.6 [facility] Comment on above: Performed By: #### P T #### [facility] [address] [place] [address] Dr. Justyn Quintanilla CBC AUTO DIFFon 05-22-2022 BASO # 0.0 103/ul Normal 0.0-0.1 [facility] Comment on above: Performed By: #### C BC #### [facility] [address] [place] [address] Dr. Justyn Quintanilla Basophils/100 WBC (Bld) 0.5 % Normal 0.2-2.0 [facility] Comment on above: Performed By: #### C BC #### [facility] [address] [place] [address] Dr. Justyn Quintanilla EO # 0.1 103/ul Normal 0.0-0.7 [facility] Comment on above: Performed By: #### C BC #### [facility] [address] [place] [address] Dr. Justyn Quintanilla Eosinophils/100 WBC (Bld) 2.9 % Normal 0.9-7.0 [facility] Comment on above: Performed By: #### C BC #### [facility] [address] [place] [address] Dr. Justyn Quintanilla Erythrocyte distribution width (RBC) [Ratio] 20.7 % Critically high 11.0-15.0 [facility] Comment on above: Performed By: #### C BC #### [facility] [address] [place] [address] Dr. Justyn Quintanilla Hematocrit (Bld) [Volume fraction] 29.7 % Critically low 36.0-48.0 [facility] Comment on above: Performed By: #### C BC #### [facility] [address] [place] [address] Dr. Justyn Quintanilla Hemoglobin (Bld) [Mass/Vol] 9.0 g/dL Critically low 12.0-16.0 [facility] Comment on above: Performed By: #### C BC #### [facility] [address] [place] [address] Dr. Justyn Quintanilla IG # 0.01 10e3/ul Normal 0.00-0.03 [facility] Comment on above: Performed By: #### C BC #### [facility] [address] [place] [address] Dr. Justyn Quintanilla IG % 0.2 % Normal 0.0-0.5 [facility] Comment on above: Performed By: #### C BC #### [facility] [address] [place] [address] Dr. Justyn Quintanilla LYMPH # 1.2 103/ul Normal 1.2-3.8 [facility] Comment on above: Performed By: #### C BC #### [facility] [address] [place] [address] Dr. Justyn Quintanilla Lymphocytes/100 WBC (Bld) 29.0 % Normal 20.5-60.0 [facility] Comment on above: Performed By: #### C BC #### [facility] [address] [place] [address] Dr. Justyn Quintanilla MANUAL DIFF REQ NO Normal [facility] Comment on above: Performed By: #### C BC #### [facility] [address] [address] [address] Justyn Quintanilla MCH (RBC) [Entitic mass] 28.6 pg Normal 26.7-34.0 [facility] Comment on above: Performed By: #### C BC #### [facility] [address] [place] [address] Dr. Justyn Quintanilla MCHC (RBC) [Mass/Vol] 30.3 g/dL Normal 29.9-35.2 [facility] Comment on above: Performed By: #### C BC #### [facility] [address] [place] [address] Dr. Justyn Quintanilla MCV (RBC) [Entitic vol] 94.3 fL Normal 81.0-99.0 [facility] Comment on above: Performed By: #### C BC #### [facility] [address] [place] [address] Dr. Justyn Quintanilla MONO # 0.4 103/ul Normal 0.3-0.8 [facility] Comment on above: Performed By: #### C BC #### [facility] [address] [place] [address] Dr. Justyn Quintanilla Monocytes/100 WBC (Bld) 9.8 % Normal 1.7-12.0 [facility] Comment on above: Performed By: #### C BC #### [facility] [address] [place] [address] Dr. Justyn Quintanilla NEUT # 2.3 103/ul Normal 1.4-6.5 [facility] Comment on above: Performed By: #### C BC #### [facility] [address] [place] [address] Dr. Justyn Quintanilla Neutrophils/100 WBC (Bld) 57.6 % Normal 43.0-75.0 [facility] Comment on above: Performed By: #### C BC #### [facility] [address] [place] [address] Dr. Justyn Quintanilla Platelet mean volume (Bld) [Entitic vol] 9.2 fL Critically low 9.5-13.5 [facility] Comment on above: Performed By: #### C BC #### [facility] [address], [place] [address] Dr. Justyn Quintanilla PLT 361 103/ul Normal 150-450 [facility] Comment on above: Performed By: #### C BC #### [facility] [address], [place] [address] Dr. Justyn Quintanilla RBC 3.15 106/ul Critically low 4.20-5.40 [facility] Comment on above: Performed By: #### C BC #### [facility] [address], [place] [address] Dr. Justyn Quintanilla WBC 4.1 103/ul Normal 4.0-11.0 [facility] Comment on above: Performed By: #### C BC #### [facility] [address], [place] [address] Dr. Justyn Quintanilla MG MAMM SCREEN 3D JACQUELINE CADon 01-08-2022 MG MAMM SCREEN 3D JACQUELINE CAD Patient: MESFIN LOPEZ Exam Date: 01/08/2022 : 1950 Gender:F Ordering : DR VENECIA KING M.D. Admission #: [id number] Family : Order #: [id number] CLICK HERE TO VIEW EXAM RADIOLOGY REPORT [...] breast cancer at age 81. LOCATION: [facility] BREAST COMPOSITION: Scattered areas fibroglandular density. [...] Pro MD on 01/23/2022 at 08:05 Normal [facility] XR DEXA BONE DENSITYon 01-08 XR [...] by: CINTHYA PHAM Date: 2022-01-08 18:00 Normal [facility] Complete Blood Count with Au to Diffon 12-17-2021 Basophils (Bld) [#/Vol] 0.05 10*3/uL Normal 0.00-0.20 [facility] Comment on above: Performed By: #### V ITD, LIPD, smear, CBCAD, CMP #### [facility] [address], [place] [id number] Basophils/100 WBC (Bld) 1.3 % Normal [facility] [employer] [facility] Comment on above: Performed By: #### V ITD, LIPD, smear, CBCAD, CMP #### [facility] [address] [place], [place] [id number] Eosinophils (Bld) [#/Vol] 0.08 10*3/uL Normal 0.02-0.50 [facility] [employer] Comment on above: Performed By: #### V ITD, LIPD, smear, CBCAD, CMP #### [facility] [address], [place] [id number] Eosinophils/100 WBC (Bld) 2.1 % Normal [facility] [employer] [facility] Comment on above: Performed By: #### V ITD, LIPD, smear, CBCAD, CMP #### [facility] [address], [place] [id number] Erythrocyte distribution width (RBC) [Ratio] 17.8 % High 11.0-15.0 [facility] Comment on above: Performed By: #### V ITD, LIPD, smear, CBCAD, CMP #### [facility] [address], [place] [id number] Hematocrit (Bld) [Volume fraction] 30.4 % Low 35.0-47.0 [facility] [employer] [facility] Comment on above: Performed By: #### V ITD, LIPD, smear, CBCAD, CMP #### [facility] [address], [place] [id number] Hemoglobin (Bld) [Mass/Vol] 8.7 g/dL Low 11.6-15.5 [facility] [employer] [facility] Comment on above: Performed By: #### V ITD, LIPD, smear, CBCAD, CMP #### [facility] [address], [place] [id number] Lymphocytes (Bld) [#/Vol] 1.0 10*3/uL Normal 0.9-3.9 [facility] Comment on above: Performed By: #### V ITD, LIPD, smear, CBCAD, CMP #### [facility] [address], [place] [id number] Lymphocytes/100 WBC (Bld) 25.1 % Normal [facility] Comment on above: Performed By: #### V ITD, LIPD, smear, CBCAD, CMP #### [facility] [address], [place] [id number] MCH (RBC) [Entitic mass] 21.1 pg Low 27.0-33.0 [facility] [employer] [facility] Comment on above: Performed By: #### V ITD, LIPD, smear, CBCAD, CMP #### [facility] [address], [place] [id number] MCHC (RBC) [Mass/Vol] 28.6 g/dL Low 32.0-36.0 [facility] [employer] [facility] Comment on above: Performed By: #### V ITD, LIPD, smear, CBCAD, CMP #### [facility] [address], [place] [id number] MCV (RBC) [Entitic vol] 74 fL Low 80-100 [facility] Comment on above: Performed By: #### V ITD, LIPD, smear, CBCAD, CMP #### [facility] [address], [place] [id number] Monocytes (Bld) [#/Vol] 0.4 10*3/uL Normal 0.2-0.9 [facility] Comment on above: Performed By: #### V ITD, LIPD, smear, CBCAD, CMP #### [facility] [address], [place] [id number] Monocytes/100 WBC (Bld) 9.9 % Normal [facility] Comment on above: Performed By: #### V ITD, LIPD, smear, CBCAD, CMP #### [facility] [address], [place] [id number] Neutrophils (Bld) [#/Vol] 2.4 10*3/uL Normal 1.5-7.8 [facility] Comment on above: Performed By: #### V ITD, LIPD, smear, CBCAD, CMP #### [facility] [address], [place] [id number] Neutrophils/100 WBC (Bld) 61.3 % Normal [facility] Comment on above: Performed By: #### V ITD, LIPD, smear, CBCAD, CMP #### [facility] [address], [place] [id number] Platelet mean volume (Bld) [Entitic vol] 10.00 fL Normal 7.50-12.50 [facility] Comment on above: Performed By: #### V ITD, LIPD, smear, CBCAD, CMP #### [facility] [address], [place] [id number] Platelets (Bld) [#/Vol] 255 10*3/uL Normal 140-400 [facility] Comment on above: Performed By: #### V ITD, LIPD, smear, CBCAD, CMP #### [facility] [address], [place] [id number] RBC (Bld) [#/Vol] 4.13 10*6/uL Normal 3.90-5.20 [facility] Comment on above: Performed By: #### V ITD, LIPD, smear, CBCAD, CMP #### [facility] [address], [place] [id number] RDW-SD 46.7 fL Normal 37.0-50.0 [facility] Comment on above: Performed By: #### V ITD, LIPD, smear, CBCAD, CMP #### [facility] [address], [place] [id number] REFLEX Smear Review Normal [facility] Comment on above: Performed By: #### V ITD, LIPD, smear, CBCAD, CMP #### [facility] [address], [place] [id number] WBC (Bld) [#/Vol] 3.8 10*3/uL Normal 3.8-11.0 [facility] [place] Specialist Comment on above: Performed By: #### V ITD, LIPD, smear, CBCAD, CMP #### [facility] [address], [place] [id number] Comprehensive Metabolic Pane [facility] 12-17-2021 Albumin [Mass/Vol] 4.1 g/dL Normal 3.6-5.1 [facility] [employer] [facility] Comment on above: Performed By: #### V ITD, LIPD, smear, CBCAD, CMP #### [facility] [address], [place] [id number] Albumin/Globulin [Mass ratio] 2.0 {ratio} Normal 1.0-2.5 [facility] Comment on above: Performed By: #### V ITD, LIPD, smear, CBCAD, CMP #### [facility] [address], [place] [id number] ALP [Catalytic activity/Vol] 85 U/L Normal 35-119 [facility] Comment on above: Performed By: #### V ITD, LIPD, smear, CBCAD, CMP #### [facility] [address], [place] [id number] ALT [Catalytic activity/Vol] 12 U/L Normal 6-33 [facility] Comment on above: Result Comment: 06/26 Female reference range changed. Performed By: #### V ITD, LIPD, smear, CBCAD, CMP #### [facility] [address], [place] [id number] Anion gap [Moles/Vol] 15 mmol/L Normal 12-20 [facility] Comment on above: Result Comment: Toñolana ctive 08/01/2019 reference range changed. Performed By: #### V ITD, LIPD, smear, CBCAD, CMP #### [facility] [address], [place] [id number] AST [Catalytic activity/Vol] 18 U/L Normal 9-34 [facility] Comment on above: Performed By: #### V ITD, LIPD, smear, CBCAD, CMP #### [facility] [address], [place] [id number] Bilirubin [Mass/Vol] 0.47 mg/dL Normal 0.30-1.20 [facility] Comment on above: Performed By: #### V ITD, LIPD, smear, CBCAD, CMP #### [facility] [address], [place] [id number] BUN/CREA 28 Ratio High 6-22 [facility] Comment on above: Performed By: #### V ITD, LIPD, smear, CBCAD, CMP #### [facility] [address], [place] [id number] Calcium [Mass/Vol] 9.3 mg/dL Normal 8.6-10.2 [facility] Comment on above: Performed By: #### V ITD, LIPD, smear, CBCAD, CMP #### [facility] [address], [place] [id number] Chloride [Moles/Vol] 103 mmol/L Normal 98-107 [facility] Comment on above: Performed By: #### V ITD, LIPD, smear, CBCAD, CMP #### [facility] [address], [place] [id number] CO2 [Moles/Vol] 27 mmol/L Normal 20-31 [facility] Comment on above: Performed By: #### V ITD, LIPD, smear, CBCAD, CMP #### [facility] [address], [place] [id number] Creatinine [Mass/Vol] 0.6 mg/dL Normal 0.6-1.4 [facility] [employer] [facility] Comment on above: Performed By: #### V ITD, LIPD, smear, CBCAD, CMP #### [facility] [address], [place] [id number] eGFRAA 122 mL/min/1.73m2 Normal >60 [facility] Specialist Comment on above: Performed By: #### V ITD, LIPD, smear, CBCAD, CMP #### [facility] [address], [place] [id number] eGFRNAA 101 mL/min/1.73m2 Normal >60 [facility] Special[facility] Comment on above: Performed By: #### V ITD, LIPD, smear, CBCAD, CMP #### [facility] [address], [place] [id number] Globulin (S) [Mass/Vol] 2.1 g/dL Normal 1.9-3.7 [facility] [employer] Comment on above: Performed By: #### V ITD, LIPD, smear, CBCAD, CMP #### [facility] [address], [place] [id number] Glucose [Mass/Vol] 100 mg/dL High 65-99 [facility] [employer] [facility] Comment on above: Result Comment: For FASTING Glucose --- ADA reference ranges: Normal 65-99 mg/dl Prediabetes 100-125 Diabetes >/= 126 Performed By: #### V ITD, LIPD, smear, CBCAD, CMP #### [facility] [address], [place] [id number] Potassium [Moles/Vol] 4.8 mmol/L Normal 3.5-5.5 [facility] [employer] Comment on above: Performed By: #### V ITD, LIPD, smear, CBCAD, CMP #### [facility] [address], [place] [id number] Protein [Mass/Vol] 6.2 g/dL Normal 6.1-8.1 [facility] [employer] [facility] Comment on above: Performed By: #### V ITD, LIPD, smear, CBCAD, CMP #### [facility] [address], [place] [id number] Sodium [Moles/Vol] 140 mmol/L Normal 135-146 [facility] Comment on above: Performed By: #### V ITD, LIPD, smear, CBCAD, CMP #### [facility] [address], [place] [id number] Urea nitrogen [Mass/Vol] 16 mg/dL Normal 7-25 [facility] Comment on above: Performed By: #### V ITD, LIPD, smear, CBCAD, CMP #### [facility] [address], [place] [id number] Hemoglobin A1Con 12-17-2021 EAG 122.63 Normal [facility] Comment on above: Performed By: #### A 1C #### [facility] [address], [place] [id number] HbA1c (Bld) [Mass fraction] 5.9 % Normal 4.0-6.0 [facility] Comment on above: Performed By: #### A 1C #### [facility] [address], [place] [id number] Lipid Panelon 12-17-2021 Cholesterol [Mass/Vol] 178 mg/dL Normal 125-200 [facility] Comment on above: Result Comment: Low risk < 200mg/dL Borderline risk 201-239 mg/dl High risk > or equal to 240 Performed By: #### V ITD, LIPD, smear, CBCAD, CMP #### [facility] [address], [place] [id number] Cholesterol in HDL [Mass/Vol] 54 mg/dL Normal >40 [facility] Comment on above: Result Comment: High Cardiovascular Risk HDL <40 mg/dL Low Cardiovascular Risk HDL > or equal to 60 mg/dl Performed By: #### V ITD, LIPD, smear, CBCAD, CMP #### [facility] [address], [place] [id number] Cholesterol in LDL [Mass/Vol] 111 mg/dL Normal [facility] Comment on above: Result Comment: LDL ATP III CLASSIFICATION LDL less than 100 mg/dl Optimal LDL 100-129 mg/dl Near or above optimal LDL 130-159 Borderline high LDL 160-189 High LDL greater than 189 mg/dl Very High Performed By: #### V ITD, LIPD, smear, CBCAD, CMP #### [facility] [address], [place] [id number] Cholesterol in VLDL [Mass/Vol] 13 mg/dL Normal [facility] Comment on above: Performed By: #### V ITD, LIPD, smear, CBCAD, CMP #### [facility] [address], [place] [id number] Cholesterol.total/C holesterol in HDL [Mass ratio] 3 {ratio} Normal [facility] Comment on above: Performed By: #### V ITD, LIPD, smear, CBCAD, CMP #### [facility] [address], [place] [id number] Triglyceride [Mass/Vol] 67 mg/dL Normal 30-150 [facility] Comment on above: Result Comment: TRIG ATPIII CLASSIFICATIONS TRIG less than 150 mg/dl Normal TRIG 150-199 mg/dl Borderline High TRIG 200-500 mg/dl High TRIG greather than 500 mg/dl Very High Performed By: #### V ITD, LIPD, smear, CBCAD, CMP #### [facility] [address], [place] [id number] Smear Reviewon 12-17-2021 PLT EST Adequate Normal [facility] Comment on above: Performed By: #### V ITD, LIPD, smear, CBCAD, CMP #### [facility] [address], [place] [id number] RBC morphology finding Nom (Bld) RBC morphology review confirms RBC indices Normal [facility] Comment on above: Performed By: #### V ITD, LIPD, smear, CBCAD, CMP #### [facility] [address], [place] [id number] Vitamin D 25-OHon 12-17-2021 VIT D 25 OH 48 ng/ml Normal >29 [facility] [employer] Comment on above: Result Comment: Miladys min D Status Deficiency <20 ng/mL Insufficiency 20-29 ng/mL Optimal 30-100 ng/mL Possible Toxicity >=150 ng/mL Performed By: #### V ITD, LIPD, smear, CBCAD, CMP #### [facility] [address], [place] [id number] Encounters Encounter Date Encounter Type Care Provider Facility Start: 04-04-2024 End: 04-04-2024 ambulatory VENECIA Berman CHRISTINE Not Available Start: 03-07-2024 End: 03-07-2024 ambulatory TRICIA Berman HEMMER Not Available Start: 12-25-2023 End: 12-25-2023 ambulatory TRICIA Berman HEMMER Not Available Start: 12-18-2023 End: 12-18-2023 ambulatory RUGTIFFANY CHRISTINE Not Available Start: 10-20-2023 End: 10-20-2023 ambulatory RUGEN M CHRISTINE Not Available Start: 01-01-2023 ambulatory NARENDRANATH [...] CÁRDENAS Facility:H1 Start: 01-08-2022 End: 01-09-2022 ambulatory VENECIA KING Facility:[facility] Start: 02-09-2018 Patient encounter KRISHNA ALLRED Fac ility:[id number] Start: 02-08-2018 Patient encounter KRISHNA Jacques ility:[id number] Start: 02-08-2018 Patient encounter Facil ity:[id number] Start: 11-27-2017 End: 11-28-2017 Ambulatory DEFAULT PHYSICIAN Facility:[facility] Payers Date Payer Category Payer Medicare [id number] 1958 Unknown [id number] 1950 Unknown [id number] 2.16.84 0.1.421763.3.579.2.593 1950 Unknown [id number] 2..84 0.1.446542.3.579.2.593 1950 Unknown [id number] 2.16.84 0.1.344385.3.579.2.593 1950 Unknown [id number] 2.16.84 0.1.349513.3.579.2.593 1950 Unknown [id number] 2..84 0.1.641970.3.579.2.593 1950 Unknown [id number] 2.16.84 0.1.119368.3.579.2.593 1950 Unknown [id number] 2.16.84 0.1.925931.3.579.2.593 1950 Unknown [id number] 2.16.84 0.1.022345.3.579.2.593 1950 Unknown [id number] 2.16.84 0.1.935180.3.579.2.593 1950 Unknown [id number] 2.16.84 0.1.351041.3.579.2.593 1950 Unknown [id number] 2.16.84 0.1.201787.3.579.2.593 1950 Unknown [id number] 2.16.84 0.1.889951.3.579.2.593 1950 Unknown [id number] 2.16.84 0.1.779753.3.579.2.593 1950 Unknown [id number] 2.16.84 0.1.639290.3.579.2.593 1950 Unknown [id number] 2.16.84 0.1.084281.3.579.2.593 1950 Unknown [id number] 2.16.84 0.1.453856.3.579.2.593 1950 Unknown [id number] 2.16.84 0.1.839694.3.579.2.593 1950 Unknown [id number] 2.16.84 0.1.210936.3.579.2.1259 1950 Unknown [id number] 2.16.84 0.1.167015.3.579.2.1259 1950 Unknown [id number] 2.16.84 0.1.456432.3.579.2.1259 1950 Unknown [id number] 2.16.84 0.1.681768.3.579.2.1259 1950 Unknown [id number] 2.16.84 0.1.912912.3.579.2.1259 Medicare [id number] Unknown Consultation note 12-02-2022 Note Date & [...] our patients to inform us about any anyn-som-dolxizk medications or herbal remedies/nutritional supplements/alternative remedies. 2. [...] options with their primary care provider. [facility] Summary Purpose Family History No Family [...] and content) DATE CREATED AUTHOR 01/14/2018 [facility] DATE CREATED AUTHOR AUTHOR'S ORGANIZ ATION 02/11/2018 [facility] DATE CREATED AUTHOR AUTHOR'S ORGANIZ ATION 02/11/2018 [facility] DATE CREATED AUTHOR AUTHOR'S ORGANIZ ATION 12/18/2021 [facility] dical Specialist DATE CREATED AUTHOR AUTHOR'S ORGANIZ ATION 01/02/2023 [facility] DATE CREATED AUTHOR AUTHOR'S ORGANIZ ATION 04/05/2024 [facility] dical Specialists [facility] FOR RECORDS PERTAINING TO PATIENTS WHO ARE [...] BE BASED ON THE PRIMARY CLINICAL RECORDS. [facility]. provides no warranty or guarantee of the accuracy or completeness of information in this document.
== END 2024-04-05 10:14 | disposition home or self-care (01) ==
LOC: MAMMO 10:13
PROVIDERS: PCP Family Medicine; Visit Provider Physician Assistant
DX: Z12.31 Encounter for screening mammogram for malignant neoplasm of breast (principal); Z80.3 Family history of malignant neoplasm of breast
CPT/HCPCS: 77063; 77067

== ENCOUNTER 2024-04-14 10:52 | Outpatient (OUT) | payer MEDICARE, BC, SELFPAY ==
--- OUTSIDE RECORDS SUMMARY | 2024-04-14 11:07 | XMS_ITS | CCD ---
Author Organization [facility] Care Team Providers Care Idea Man Name Role Phone PHYSICIAN, DEFAULT Unavailable Unavailable PHYSICIAN, DEFAULT Unavailable Unavailable ALLRED, KELLER Unavailable Unavailable CHRISTINE, RUGEN Unavailable Unavailable ALLRED, KELLER Unavailable Unavailable CHRISTINELEONAEN [...] CHRISTINE, DR TRUJILLO Consulting Unavailable CHRISTINE, DR TRJUILLO Attending Unavailable CHRISTINE, DR TRUJILLO Admitting Unavailable [...] sources) Penicillins Drug allergy (disorder) 07-12-2016 [facility] Repository Problems Active Problems Problem Classification [...] Onset: 11-22-2022 Episodic Other aftercare (1 source) half-way (current) use of anticoagulants; Translations: [PENITENTIARY CURRNT USE ANTICOAGULANTS] Onset: 12-24-2022 Episodic Other [...] (PPP) [Relative time] 1.02 {INR} Normal [facility] Comment on above: Performed By: #### P T #### [facility] [address] [place] [address] Dr. Justyn Quintanilla INR GUIDELINES SEE BELOW Normal [facility] Comment on above: Result Comment: THAI RED INR: 2.0 - 3.0 CONDITIONS NOT LISTED BELOW 2.5 - 3.5 FOR PROSTHETIC HEART VALVE REPLACEMENT 2.5 - 3.5 RECURRENT THROMBOSIS Performed By: #### P T #### [facility] [address] [place] [address] Dr. Justyn Quintanilla PT Coag (PPP) [Time] 10.8 s Normal 9.0-11.6 [facility] Comment on above: Performed By: #### P T #### [facility] [address] [place] [address] Dr. Justyn Quintanilla CBC AUTO DIFFon 05-22-2022 BASO # 0.0 103/ul Normal 0.0-0.1 [facility] Comment on above: Performed By: #### C BC #### [facility] [address] [place] [address] Dr. Justyn Quintanilla Basophils/100 WBC (Bld) 0.5 % Normal 0.2-2.0 [facility] Comment on above: Performed By: #### C BC #### [facility] [address] [place] [address] Dr. Justyn Quintanilla EO # 0.1 103/ul Normal 0.0-0.7 [facility] Comment on above: Performed By: #### C BC #### [facility] [address] [place] [address] Dr. Justyn Quintanilla Eosinophils/100 WBC (Bld) 2.9 % Normal 0.9-7.0 [facility] Comment on above: Performed By: #### C BC #### [facility] [address] [place] [address] Dr. Justyn Quintanilla Erythrocyte distribution width (RBC) [Ratio] 20.7 % Critically high 11.0-15.0 [facility] Comment on above: Performed By: #### C BC #### [facility] [address] [place] [address] Dr. Justyn Quintanilla Hematocrit (Bld) [Volume fraction] 29.7 % Critically low 36.0-48.0 [facility] Comment on above: Performed By: #### C BC #### [facility] [address] [place] [address] Dr. Justyn Quintanilla Hemoglobin (Bld) [Mass/Vol] 9.0 g/dL Critically low 12.0-16.0 [facility] Comment on above: Performed By: #### C BC #### [facility] [address] [place] [address] Dr. Justyn Quintanilla IG # 0.01 10e3/ul Normal 0.00-0.03 [facility] Comment on above: Performed By: #### C BC #### [facility] [address] [place] [address] Dr. Justyn Quintanilla IG % 0.2 % Normal 0.0-0.5 [facility] Comment on above: Performed By: #### C BC #### [facility] [address] [place] [address] Dr. Justyn Quintanilla LYMPH # 1.2 103/ul Normal 1.2-3.8 [facility] Comment on above: Performed By: #### C BC #### [facility] [address] [place] [address] Dr. Justyn Quintanilla Lymphocytes/100 WBC (Bld) 29.0 % Normal 20.5-60.0 [facility] Comment on above: Performed By: #### C BC #### [facility] [address] [place] [address] Dr. Justyn Quintanilla MANUAL DIFF REQ NO Normal [facility] Comment on above: Performed By: #### C BC #### [facility] [address] [address] [address] Justyn Quintanilla MCH (RBC) [Entitic mass] 28.6 pg Normal 26.7-34.0 [facility] Comment on above: Performed By: #### C BC #### [facility] [address] [place] [address] Dr. Justyn Quintanilla MCHC (RBC) [Mass/Vol] 30.3 g/dL Normal 29.9-35.2 [facility] Comment on above: Performed By: #### C BC #### [facility] [address] [place] [address] Dr. Justyn Quintanilla MCV (RBC) [Entitic vol] 94.3 fL Normal 81.0-99.0 [facility] Comment on above: Performed By: #### C BC #### [facility] [address] [place] [address] Dr. Justyn Quintanilla MONO # 0.4 103/ul Normal 0.3-0.8 [facility] Comment on above: Performed By: #### C BC #### [facility] [address] [place] [address] Dr. Jusytn Quintanilla Monocytes/100 WBC (Bld) 9.8 % Normal 1.7-12.0 [facility] Comment on above: Performed By: #### C BC #### [facility] [address] [place] [address] Dr. Justyn Quintanilla NEUT # 2.3 103/ul Normal 1.4-6.5 [facility] Comment on above: Performed By: #### C BC #### [facility] [address] [place] [address] Dr. Justyn Quintanilla Neutrophils/100 WBC (Bld) 57.6 % Normal 43.0-75.0 [facility] Comment on above: Performed By: #### C BC #### [facility] [address] [place] [address] Dr. Justyn Quintanilla Platelet mean volume (Bld) [Entitic vol] 9.2 fL Critically low 9.5-13.5 [facility] Comment on above: Performed By: #### C BC #### [facility] [address] [place], [place] [address] Dr. Justyn Quintanilla PLT 361 103/ul Normal 150-450 [facility] Comment on above: Performed By: #### C BC #### [facility] [address] [place], [place] [address] Dr. Justyn Quintanilla RBC 3.15 106/ul Critically low 4.20-5.40 [facility] Comment on above: Performed By: #### C BC #### [facility] [address] [place], [place] [address] Dr. Justyn Quintanilla WBC 4.1 103/ul Normal 4.0-11.0 [facility] Comment on above: Performed By: #### C BC #### [facility] [address] [place], [place] [address] Dr. Justyn Quintanilla MG MAMM SCREEN 3D JACQUELINE CADon 01-08-2022 MG MAMM SCREEN 3D JACQUELINE CAD Patient: MESFIN LOPEZ Exam Date: 01/08/2022 : 1950 Gender:F Ordering : DR VENECIA KING M.D. Admission #: [id number] Family : Order #: [id number] CLICK HERE TO VIEW EXAM RADIOLOGY REPORT [...] breast cancer at age 81. LOCATION: [facility] BREAST COMPOSITION: Scattered areas fibroglandular density. [...] Pro MD on 01/23/2022 at 08:05 Normal [facility] XR DEXA BONE DENSITYon 01-08 XR [...] by: CINTHYA PHAM Date: 2022-01-08 18:00 Normal [facility] Complete Blood Count with Au to Diffon 12-17-2021 Basophils (Bld) [#/Vol] 0.05 10*3/uL Normal 0.00-0.20 [facility] Comment on above: Performed By: #### V ITD, LIPD, smear, CBCAD, CMP #### [facility] [address] [place], [place] [id number] Basophils/100 WBC (Bld) 1.3 % Normal [facility] Comment on above: Performed By: #### V ITD, LIPD, smear, CBCAD, CMP #### [facility] [address] [place] [id number] Eosinophils (Bld) [#/Vol] 0.08 10*3/uL Normal 0.02-0.50 [facility] Comment on above: Performed By: #### V ITD, LIPD, smear, CBCAD, CMP #### [facility] [address] [place], [place] [id number] Eosinophils/100 WBC (Bld) 2.1 % Normal [facility] Comment on above: Performed By: #### V ITD, LIPD, smear, CBCAD, CMP #### [facility] [address] [place], [place] [id number] Erythrocyte distribution width (RBC) [Ratio] 17.8 % High 11.0-15.0 [facility] Comment on above: Performed By: #### V ITD, LIPD, smear, CBCAD, CMP #### [facility] [address] [place], [place] [id number] Hematocrit (Bld) [Volume fraction] 30.4 % Low 35.0-47.0 [facility] Comment on above: Performed By: #### V ITD, LIPD, smear, CBCAD, CMP #### [facility] [address] [place], [place] [id number] Hemoglobin (Bld) [Mass/Vol] 8.7 g/dL Low 11.6-15.5 [facility] Comment on above: Performed By: #### V ITD, LIPD, smear, CBCAD, CMP #### [facility] [address] [place], [place] [id number] Lymphocytes (Bld) [#/Vol] 1.0 10*3/uL Normal 0.9-3.9 [facility] Comment on above: Performed By: #### V ITD, LIPD, smear, CBCAD, CMP #### [facility] [address] [place], [place] [id number] Lymphocytes/100 WBC (Bld) 25.1 % Normal [facility] Comment on above: Performed By: #### V ITD, LIPD, smear, CBCAD, CMP #### [facility] [address] [place], [place] [id number] MCH (RBC) [Entitic mass] 21.1 pg Low 27.0-33.0 [facility] Comment on above: Performed By: #### V ITD, LIPD, smear, CBCAD, CMP #### [facility] [address] [place], [place] [id number] MCHC (RBC) [Mass/Vol] 28.6 g/dL Low 32.0-36.0 [facility] Comment on above: Performed By: #### V ITD, LIPD, smear, CBCAD, CMP #### [facility] [address] [place], [place] [id number] MCV (RBC) [Entitic vol] 74 fL Low 80-100 [facility] Comment on above: Performed By: #### V ITD, LIPD, smear, CBCAD, CMP #### [facility] [address] [place], [place] [id number] Monocytes (Bld) [#/Vol] 0.4 10*3/uL Normal 0.2-0.9 [facility] Comment on above: Performed By: #### V ITD, LIPD, smear, CBCAD, CMP #### [facility] [address] [place], [place] [id number] Monocytes/100 WBC (Bld) 9.9 % Normal [facility] Comment on above: Performed By: #### V ITD, LIPD, smear, CBCAD, CMP #### [facility] [address] [place], [place] [id number] Neutrophils (Bld) [#/Vol] 2.4 10*3/uL Normal 1.5-7.8 [facility] Comment on above: Performed By: #### V ITD, LIPD, smear, CBCAD, CMP #### [facility] [address] [place], [place] [id number] Neutrophils/100 WBC (Bld) 61.3 % Normal [facility] Comment on above: Performed By: #### V ITD, LIPD, smear, CBCAD, CMP #### [facility] [address] [place], [place] [id number] Platelet mean volume (Bld) [Entitic vol] 10.00 fL Normal 7.50-12.50 [facility] Comment on above: Performed By: #### V ITD, LIPD, smear, CBCAD, CMP #### [facility] [address] [place], [place] [id number] Platelets (Bld) [#/Vol] 255 10*3/uL Normal 140-400 [facility] Comment on above: Performed By: #### V ITD, LIPD, smear, CBCAD, CMP #### [facility] [address] [place], [place] [id number] RBC (Bld) [#/Vol] 4.13 10*6/uL Normal 3.90-5.20 [facility] Comment on above: Performed By: #### V ITD, LIPD, smear, CBCAD, CMP #### [facility] [address] [place], [place] [id number] RDW-SD 46.7 fL Normal 37.0-50.0 [facility] Comment on above: Performed By: #### V ITD, LIPD, smear, CBCAD, CMP #### [facility] [address] [place], [place] [id number] REFLEX Smear Review Normal [facility] Comment on above: Performed By: #### V ITD, LIPD, smear, CBCAD, CMP #### [facility] [address] [place], [place] [id number] WBC (Bld) [#/Vol] 3.8 10*3/uL Normal 3.8-11.[address] [facility] Comment on above: Performed By: #### V ITD, LIPD, smear, CBCAD, CMP #### [facility] [address] [place], [place] [id number] Comprehensive Metabolic Pane [facility] 12-17-2021 Albumin [Mass/Vol] 4.1 g/dL Normal 3.6-5.1 [facility] Comment on above: Performed By: #### V ITD, LIPD, smear, CBCAD, CMP #### [facility] [address] [place], [place] [id number] Albumin/Globulin [Mass ratio] 2.0 {ratio} Normal 1.0-2.5 [facility] Comment on above: Performed By: #### V ITD, LIPD, smear, CBCAD, CMP #### [facility] [address] [place], [place] [id number] ALP [Catalytic activity/Vol] 85 U/L Normal 35-119 [facility] Comment on above: Performed By: #### V ITD, LIPD, smear, CBCAD, CMP #### [facility] [address] [place], [place] [id number] ALT [Catalytic activity/Vol] 12 U/L Normal 6-33 [facility] Comment on above: Result Comment: 06/26 Female reference range changed. Performed By: #### V ITD, LIPD, smear, CBCAD, CMP #### [facility] [address] [place], [place] [id number] Anion gap [Moles/Vol] 15 mmol/L Normal 12-20 [facility] Comment on above: Result Comment: Toñolana ctive 08/01/2019 reference range changed. Performed By: #### V ITD, LIPD, smear, CBCAD, CMP #### [facility] [address] [place], [place] [id number] AST [Catalytic activity/Vol] 18 U/L Normal 9-34 [facility] Comment on above: Performed By: #### V ITD, LIPD, smear, CBCAD, CMP #### [facility] [address] [place], [place] [id number] Bilirubin [Mass/Vol] 0.47 mg/dL Normal 0.30-1.20 [facility] Comment on above: Performed By: #### V ITD, LIPD, smear, CBCAD, CMP #### [facility] [address] [place], [place] [id number] BUN/CREA 28 Ratio High 6-22 [facility] Comment on above: Performed By: #### V ITD, LIPD, smear, CBCAD, CMP #### [facility] [address] [place], [place] [id number] Calcium [Mass/Vol] 9.3 mg/dL Normal 8.6-10.2 [facility] Comment on above: Performed By: #### V ITD, LIPD, smear, CBCAD, CMP #### [facility] [address] [place], [place] [id number] Chloride [Moles/Vol] 103 mmol/L Normal 98-107 [facility] Comment on above: Performed By: #### V ITD, LIPD, smear, CBCAD, CMP #### [facility] [address] [place], [place] [id number] CO2 [Moles/Vol] 27 mmol/L Normal 20-31 [facility] Comment on above: Performed By: #### V ITD, LIPD, smear, CBCAD, CMP #### [facility] [address] [place], [place] [id number] Creatinine [Mass/Vol] 0.6 mg/dL Normal 0.6-1.4 [facility] Comment on above: Performed By: #### V ITD, LIPD, smear, CBCAD, CMP #### [facility] [address] [place], [place] [id number] eGFRAA 122 mL/min/1.73m2 Normal >60 [facility] Comment on above: Performed By: #### V ITD, LIPD, smear, CBCAD, CMP #### [facility] [address] [place], [place] [id number] eGFRNAA 101 mL/min/1.73m2 Normal >60 [facility] Comment on above: Performed By: #### V ITD, LIPD, smear, CBCAD, CMP #### [facility] [address] [place], [place] [id number] Globulin (S) [Mass/Vol] 2.1 g/dL Normal 1.9-3.7 [facility] Comment on above: Performed By: #### V ITD, LIPD, smear, CBCAD, CMP #### [facility] [address] [place], [place] [id number] Glucose [Mass/Vol] 100 mg/dL High 65-99 [facility] Comment on above: Result Comment: For FASTING Glucose --- ADA reference ranges: Normal 65-99 mg/dl Prediabetes 100-125 Diabetes >/= 126 Performed By: #### V ITD, LIPD, smear, CBCAD, CMP #### [facility] [address] [place], [place] [id number] Potassium [Moles/Vol] 4.8 mmol/L Normal 3.5-5.5 [facility] Comment on above: Performed By: #### V ITD, LIPD, smear, CBCAD, CMP #### [facility] [address] [place], [place] [id number] Protein [Mass/Vol] 6.2 g/dL Normal 6.1-8.1 [facility] Comment on above: Performed By: #### V ITD, LIPD, smear, CBCAD, CMP #### [facility] [address] [place], [place] [id number] Sodium [Moles/Vol] 140 mmol/L Normal 135-146 [facility] Comment on above: Performed By: #### V ITD, LIPD, smear, CBCAD, CMP #### [facility] [address] [place], [place] [id number] Urea nitrogen [Mass/Vol] 16 mg/dL Normal 7-25 [facility] Comment on above: Performed By: #### V ITD, LIPD, smear, CBCAD, CMP #### [facility] [address] [place], [place] [id number] Hemoglobin A1Con 12-17-2021 EAG 122.63 Normal [facility] Comment on above: Performed By: #### A 1C #### [facility] [address] [place], [place] [id number] HbA1c (Bld) [Mass fraction] 5.9 % Normal 4.0-6.0 [facility] Comment on above: Performed By: #### A 1C #### [facility] [address] [place], [place] [id number] Lipid Panelon 12-17-2021 Cholesterol [Mass/Vol] 178 mg/dL Normal 125-200 [facility] Comment on above: Result Comment: Low risk < 200mg/dL Borderline risk 201-239 mg/dl High risk > or equal to 240 Performed By: #### V ITD, LIPD, smear, CBCAD, CMP #### [facility] [address] [place], [place] [id number] Cholesterol in HDL [Mass/Vol] 54 mg/dL Normal >40 [facility] Comment on above: Result Comment: High Cardiovascular Risk HDL <40 mg/dL Low Cardiovascular Risk HDL > or equal to 60 mg/dl Performed By: #### V ITD, LIPD, smear, CBCAD, CMP #### [facility] [address] [place], [place] [id number] Cholesterol in LDL [Mass/Vol] 111 mg/dL Normal [facility] Comment on above: Result Comment: LDL ATP III CLASSIFICATION LDL less than 100 mg/dl Optimal LDL 100-129 mg/dl Near or above optimal LDL 130-159 Borderline high LDL 160-189 High LDL greater than 189 mg/dl Very High Performed By: #### V ITD, LIPD, smear, CBCAD, CMP #### [facility] [address] [place], [place] [id number] Cholesterol in VLDL [Mass/Vol] 13 mg/dL Normal [facility] Comment on above: Performed By: #### V ITD, LIPD, smear, CBCAD, CMP #### [facility] [address] [place], [place] [id number] Cholesterol.total/C holesterol in HDL [Mass ratio] 3 {ratio} Normal [facility] Comment on above: Performed By: #### V ITD, LIPD, smear, CBCAD, CMP #### [facility] [address] [place], [place] [id number] Triglyceride [Mass/Vol] 67 mg/dL Normal 30-150 [facility] Comment on above: Result Comment: TRIG ATPIII CLASSIFICATIONS TRIG less than 150 mg/dl Normal TRIG 150-199 mg/dl Borderline High TRIG 200-500 mg/dl High TRIG greather than 500 mg/dl Very High Performed By: #### V ITD, LIPD, smear, CBCAD, CMP #### [facility] [address] [place], [place] [id number] Smear Reviewon 12-17-2021 PLT EST Adequate Normal [facility] Comment on above: Performed By: #### V ITD, LIPD, smear, CBCAD, CMP #### [facility] [address] [place], [place] [id number] RBC morphology finding Nom (Bld) RBC morphology review confirms RBC indices Normal [facility] Comment on above: Performed By: #### V ITD, LIPD, smear, CBCAD, CMP #### [facility] [address] [place], [place] [id number] Vitamin D 25-OHon 12-17-2021 VIT D 25 OH 48 ng/ml Normal >29 [facility] Comment on above: Result Comment: Miladys min D Status Deficiency <20 ng/mL Insufficiency 20-29 ng/mL Optimal 30-100 ng/mL Possible Toxicity >=150 ng/mL Performed By: #### V ITD, LIPD, smear, CBCAD, CMP #### [facility] [address] [place], [place] [id number] Encounters Encounter Date Encounter Type Care Provider [...] Start: 06-26-2022 End: 07-27-[address] VENECIA KIGN Facility:[facility] Start: 05-27-2022 End: 06-25-[address] [...] Start: 11-27-2017 End: 11-28-2017 Ambulatory DEFAULT PHYSICIAN Facility:[facility] Payers Date Payer Category Payer Medicare [id number] 1958 Unknown [id number] 1950 Unknown [id number] 2.16.84 0.1.993467.3.579.2.593 1950 Unknown [id number] 2..84 0.1.813130.3.579.2.593 1950 Unknown [id number] 2.16.84 0.1.246591.3.579.2.593 1950 Unknown [id number] 2.16.84 0.1.863538.3.579.2.593 1950 Unknown [id number] 2..84 0.1.810813.3.579.2.593 1950 Unknown [id number] 2.16.84 0.1.166245.3.579.2.593 1950 Unknown [id number] 2.16.84 0.1.495975.3.579.2.593 1950 Unknown [id number] 2.16.84 0.1.756242.3.579.2.593 1950 Unknown [id number] 2.16.84 0.1.566201.3.579.2.593 1950 Unknown [id number] 2.16.84 0.1.094762.3.579.2.593 1950 Unknown [id number] 2.16.84 0.1.555819.3.579.2.593 1950 Unknown [id number] 2.16.84 0.1.205348.3.579.2.593 1950 Unknown [id number] 2.16.84 0.1.578859.3.579.2.593 1950 Unknown [id number] 2.16.84 0.1.090407.3.579.2.593 1950 Unknown [id number] 2.16.84 0.1.438653.3.579.2.593 1950 Unknown [id number] 2.16.84 0.1.415991.3.579.2.593 1950 Unknown [id number] 2.16.84 0.1.984301.3.579.2.593 1950 Unknown [id number] 2.16.84 0.1.133461.3.579.2.1259 1950 Unknown [id number] 2.16.84 0.1.547841.3.579.2.1259 1950 Unknown [id number] 2.16.84 0.1.550940.3.579.2.1259 1950 Unknown [id number] 2.16.84 0.1.919690.3.579.2.1259 1950 Unknown [id number] 2.16.84 0.1.899567.3.579.2.1259 Medicare [id number] Unknown Consultation note 12-02-2022 Note Date & [...] our patients to inform us about any acid-ysa-ykdldlt medications or herbal remedies/nutritional supplements/alternative remedies. 2. [...] options with their primary care provider. [facility] Summary Purpose Family History No Family [...] and content) DATE CREATED AUTHOR 01/14/2018 [facility] DATE CREATED AUTHOR AUTHOR'S ORGANIZ ATION 02/11/2018 [facility] DATE CREATED AUTHOR AUTHOR'S ORGANIZ ATION 02/11/2018 [facility] DATE CREATED AUTHOR AUTHOR'S ORGANIZ ATION 12/18/2021 [facility] Special[facility] DATE CREATED AUTHOR AUTHOR'S ORGANIZ ATION 01/02/2023 [facility] DATE CREATED AUTHOR AUTHOR'S ORGANIZ ATION 04/05/2024 [facility] d[facility] Specialists [facility] FOR RECORDS PERTAINING TO PATIENTS WHO [...] BE BASED ON THE PRIMARY CLINICAL RECORDS. [employer] [facility] provides no warranty or guarantee of the accuracy or completeness of information in this document.
--- NOTE | 2024-04-14 11:21 | P.CN_ITS ---
Consult Note: HPI Data of Consult Patient: known to practice within the last 3 years Requesting Physician: Perla Oreilly NP Primary Care Provider: CASSANDRA KING Consult Narrative Reason for consult: f/u Narrative: Leslie Mathis a pleasant 73 year old female presents for evaluation and management of chronic bilateral knee. Patient reports a history of fibromyalgia as well. Today rating pain 8/10 in bilateral knees. Patient is on warfarin and is advised not to take NSAIDs, however she continues to use aleve advil and motrin PRN but has her INR and PT checked. Patient previously reported benefit to duloxetine 90mgs daily but is no longer on it, taking paxil 20mg daily. patient is a poor historian as she previously reported >50% improvement from genicular RFAs now feel they never helped, hx of failure to respond to steroid and durolane injections. Patient states her FM and generalized aching is moderate to severe most days. following with cardiology for bad heart valve . cc:: CC: Perla Oreilly NP Review of Systems ROS Status of ROS 10 or more systems reviewed and unremark able except as noted in history and below Musculoskeletal Reports: back pain, neck pain, extremity pain and joint pain PFSH PFSH Social History Smoking status: Never smoker Meds Home Medications and Allergies Home Medications ?Medication ?Instructions ?Recorded ?Confirmed ?Type acetaminophen 500 mg tablet 500 mg PO BID PRN pain 01/01/23 06/16/23 History (Tylenol Extra Strength) ascorbic acid (vitamin C) 500 mg 500 mg PO DAILY 01/01/23 06/16/23 History tablet calcium 100 mg capsule mg PO 01/01/23 History carvedilol 12.5 mg tablet 12.5 mg PO BID 01/01/23 06/16/23 History diltiazem HCl 240 mg capsule,24 240 mg PO DAILY 01/01/23 06/02/23 History hr,extended release ferrous sulfate 325 mg (65 mg 325 mg PO DAILY 01/01/23 06/16/23 History iron) tablet (iron) furosemide 20 mg tablet (Lasix) 20 mg PO BID 01/01/23 06/16/23 History ibuprofen 800 mg tablet 800 mg PO QDAY 01/01/23 07/16/23 History metaxalone 800 mg tablet 800 mg PO TID 01/01/23 06/16/23 History metformin 500 mg tablet 500 mg PO DAILY 01/01/23 06/16/23 History warfarin 5 mg tablet 5 mg PO DAILY 01/01/23 06/16/23 History duloxetine 30 mg capsule,delayed 30 mg PO .AM 07/16/23 07/16/23 History release (Cymbalta) duloxetine 30 mg capsule,delayed 30 mg PO .am #90 caps 08/06/23 Rx release duloxetine 60 mg capsule,delayed 60 mg PO .hs #90 caps 08/06/23 Rx release meclizine 25 mg tablet 25 mg PO TID PRN dizziness #14 tabs 08/15/23 Rx meclizine 25 mg tablet 25 mg PO TID PRN dizziness #20 tabs 08/15/23 Rx Allergies Allergy/AdvReac Type Severity Reaction Status Date / Time Penicillins Allergy Verified 04/14/23 10:35 Exam Narrative Exam Narrative: generalized myofascial pain on exam Constitutional Documenting provider has reviewed patient's vital signs: yes Common normals: no apparent distress, oriented x3, healthy appearing, alert and well nourished General appearance: cooperative HENCO Common normals: normocephalic, hearing grossly normal bilaterally and moist oral mucous membranes Head and scalp: normocephalic Eye Common normals: PERRL Pupil: PERRL Neck & C-Spine Common normals: full ROM General: normal visual inspection Chest Common normals: inspection of chest normal Respiratory Common normals: normal respiratory effort, no retractions and no use of accessory muscles Back & Pelvis Thoracic spine/upper back: normal to inspection and thoracic ROM normal Lumbar spine/lower back: normal to inspection, pain with ROM and straight leg raise negative bilaterally Sacroiliac joints: SI joints normal Other: positive bilateral facet loading Extremity Common normals: no calf tenderness and no pedal edema Right lower extremity: knee joint (enlarged, pain with weight bearing, limited ROM, weakness) Left lower extremity: knee joint (enlarged, pain with weight bearing, limited ROM, weakness) Neuro Common normals: oriented x3, CN's II-XII intact bilaterally, moves all extremities, no focal motor deficits, no sensory deficits noted and deep tendon reflexes 2+ bilaterally Sensorium/orientation: alert Motor exam: strength 5/5 throughout and no movement abnormalities noted Psych Common normals: mental status grossly normal, thought process normal, cooperative, affect normal, speech normal and activity/motor behavior normal Speech: normal speech Thought process: normal thought process Results Additional Findings Additional findings: If on a controlled substance or opioids, I have checked an [place] report on this patient and there are no aberrancies noted in the prescribing history.??If on a controlled substance or opioid a drug screen was completed and reviewed within the last year, and if there has not been a drug screen completed we ordered one today to monitor higher risk, state monitored pain medication use. As part of providing excellent, safe, comprehensive care, the following was completed at our patient's visit: 1. A medication reconciliation and review to ensure accurate knowledge of current/active medications, including asking our patients to inform us about any [id number] medications or herbal remedies/nutritional supplements/alternative remedies. 2. A review to specifically ensure our patients have had annual screening for screening for depression, screening for tobacco use, and screening for unhealthy alcohol use. For concerning screenings had a discussion with the patient, provided patient education, and recommended follow-up with primary care provider when appropriate. If patient noted with a risk of falling, they received education on strength, gait, and balance training to prevent future risk of falling. Assessment and Plan Assessment and Plan (1) Knee osteoarthritis: (2) Fibromyalgia: (3) Chronic pain syndrome: (4) Generalized OA: Plan start pregabalin 50mg BID for FM, nurse call in 2 weeks to evaluate response and consider titration, risks vs benefits reviewed with pt. refer back to Dr Mendenhall for evaluation of bilateral knee pain and OA, failed durolane and genicular RFAs continue skelaxin 800mg BID PRN pain/spasms f/u 2 months with myself, sooner if needed
== END 2024-04-14 10:53 | disposition home or self-care (01) ==
PROVIDERS: PCP Family Medicine; Visit Provider Nurse Practitioner
DX: M79.7 Fibromyalgia (principal); G89.4 Chronic pain syndrome; M15.9 Polyosteoarthritis, unspecified
CPT/HCPCS: G0463

== ENCOUNTER 2024-04-26 01:24 | Outpatient (RCR) | payer MEDICARE, BC, SELFPAY | END 2024-05-26 23:29 | disposition home or self-care (01) | LOC: MM 01:24 | PROVIDERS: PCP Family Medicine; Visit Provider Internal Medicine | DX: Z51.81 Encounter for therapeutic drug level monitoring (principal); Z79.01 Long term (current) use of anticoagulants; I48.91 Unspecified atrial fibrillation | CPT/HCPCS: 85610; G0463 ==

== ENCOUNTER 2024-05-27 10:47 | Outpatient (RCR) | payer MEDICARE, BC, SELFPAY | END 2024-06-25 23:59 | disposition home or self-care (01) | LOC: MM 10:47 | PROVIDERS: PCP Family Medicine; Visit Provider Internal Medicine | DX: Z51.81 Encounter for therapeutic drug level monitoring (principal); Z79.01 Long term (current) use of anticoagulants; I48.91 Unspecified atrial fibrillation | CPT/HCPCS: 85610; G0463 ==

== ENCOUNTER 2024-06-26 10:50 | Outpatient (RCR) | payer MEDICARE, BC, SELFPAY | END 2024-07-26 09:36 | disposition home or self-care (01) | LOC: MM 10:50 | PROVIDERS: PCP Family Medicine; Visit Provider Internal Medicine | DX: Z51.81 Encounter for therapeutic drug level monitoring (principal); Z79.01 Long term (current) use of anticoagulants; I48.91 Unspecified atrial fibrillation | CPT/HCPCS: 85610; G0463 ==

== ENCOUNTER 2024-06-29 10:10 | Outpatient (OUT) | payer MEDICARE, BC, SELFPAY ==
--- OUTSIDE RECORDS SUMMARY | 2024-06-29 10:17 | XMS_ITS | CCD ---
Author Organization [facility] Care Team Providers Care Fundraiser Name Role Phone PHYSICIAN, DEFAULT Unavailable Unavailable [...] ., NARENDCARMENATH Attending Li vailable LAKSHMIPATHY ., NARENDRANATH Admitting [...] Unavailable CHRISTINE, DR TRUJILLO Primary Care Unavailable HCRISTINE, DR TRUJILLO Consulting Unavailable CHRISTINE, DR TRUJILLO [...] Attending Unavailable CHRISTINE, VENECIA Berman Attending Unavailable KADEEMCARLINE Attending Unavailable Allergies Allergy Classification Reported Allergen(s) Allergy Type Date of Onset Reaction(s) Facility (2 sources) Penicillins Drug allergy (disorder) 07-12-2016 [facility] Repository (1 source) Penicillin; Translations: [PENICILLIN] Drug Allergy 06-07-2024 [facility] Repository Problems Active Problems Problem Classification Problem Date Documented Date Episodic/Chronic Asthma (1 source) Unspecified asthma, uncomplicated; Translations: [UNSPECIFIED ASTHMA UNCOMPLICATED] Onset: 12-18-2022 Chronic Cardiac dysrhythmias (7 sources) Unspecified atrial fibrillation; Translations: [Paroxysmal atrial fibrillation] Onset: 10-27-2022 Chronic Cardiac dysrhythmias (1 source) [...] Onset: 11-22-2022 Episodic Other aftercare (1 source) 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; Translations: [ALF CURRNT USE ANTICOAGULANTS] Onset: 12-24-2022 Episodic Other [...] Test Name Value Interpretation Reference Range Facility Office Visiton 06-07-2024 Follow-up visit [id number] DelfinaLeslie R 1950 F Date Provider Department Center 06/07/2024 CARLINE SHRESTHA [facility] Family History Problem Relation Age of Onset No Known Problems Mother No Known Problems Father Family Status - Relation Status Age at Mother Father Level of Service:26284 [place] OFFICE/OUTPATIENT NEW MODERATE MDM 45 MINUTES Normal [facility] PROTIMEon 12-16-2022 INR Coag (PPP) [Relative time] 1.02 {INR} Normal [facility] Comment on above: Performed By: #### P T #### [facility] [address] [place] [address] Dr. Justyn Quintanilla INR GUIDELINES SEE BELOW Normal [facility] Comment on above: Result Comment: THAI RED INR: 2.0 - 3.0 CONDITIONS NOT LISTED BELOW 2.5 - 3.5 FOR PROSTHETIC HEART VALVE REPLACEMENT 2.5 - 3.5 RECURRENT THROMBOSIS Performed By: #### P T #### [facility] [address] [address] [address] Justyn Quintanilla PT Coag (PPP) [Time] 10.8 s Normal 9.0-11.6 [facility] Comment on above: Performed By: #### P T #### [facility] [address] [address] [address] Justyn Quintanilla CBC AUTO DIFFon 05-22-2022 BASO # 0.0 103/ul Normal 0.0-0.1 [facility] Comment on above: Performed By: #### C BC #### [facility] [address] [address] [address] Justyn Quintanilla Basophils/100 WBC (Bld) 0.5 % Normal 0.2-2.0 [facility] Comment on above: Performed By: #### C BC #### [facility] [address] [place] [address] Dr. Justyn Quintanilla EO # 0.1 103/ul Normal 0.0-0.7 [facility] Comment on above: Performed By: #### C BC #### [facility] [address] [place] [address] Dr. Justyn Quintanilla Eosinophils/100 WBC (Bld) 2.9 % Normal 0.9-7.0 [facility] Comment on above: Performed By: #### C BC #### [facility] [address] [place] [address] Dr. Justyn Quintanilla Erythrocyte distribution width (RBC) [Ratio] 20.7 % Critically high 11.0-15.0 [facility] Comment on above: Performed By: #### C BC #### [facility] [address] [place] [address] Dr. Justyn Quintanilla Hematocrit (Bld) [Volume fraction] 29.7 % Critically low 36.0-48.0 [facility] Comment on above: Performed By: #### C BC #### [facility] [address] [place] [address] Dr. Justyn Quintanilla Hemoglobin (Bld) [Mass/Vol] 9.0 g/dL Critically low 12.0-16.0 [facility] Comment on above: Performed By: #### C BC #### [facility] [address] [place] [address] Dr. Justyn Quintanilla IG # 0.01 10e3/ul Normal 0.00-0.03 [facility] Comment on above: Performed By: #### C BC #### [facility] [address] [place] [address] Dr. Justyn Quintanilla IG % 0.2 % Normal 0.0-0.5 [facility] Comment on above: Performed By: #### C BC #### [facility] [address] [place] [address] Dr. Justyn Quintanilla LYMPH # 1.2 103/ul Normal 1.2-3.8 [facility] Comment on above: Performed By: #### C BC #### [facility] [address] [place] [address] Dr. Justyn Quintanilla Lymphocytes/100 WBC (Bld) 29.0 % Normal 20.5-60.0 [facility] Comment on above: Performed By: #### C BC #### [facility] [address] [place] [address] Dr. Justyn Quintanilla MANUAL DIFF REQ NO Normal [facility] Comment on above: Performed By: #### C BC #### [facility] [address] [place] [address] Dr. Justyn Quintanilla MCH (RBC) [Entitic mass] 28.6 pg Normal 26.7-34.0 [facility] Comment on above: Performed By: #### C BC #### [facility] [address] [place] [address] Dr. Justyn Quintanilla MCHC (RBC) [Mass/Vol] 30.3 g/dL Normal 29.9-35.2 [facility] Comment on above: Performed By: #### C BC #### [facility] [address] [place] [address] Dr. Justyn Quintanilla MCV (RBC) [Entitic vol] 94.3 fL Normal 81.0-99.0 [facility] Comment on above: Performed By: #### C BC #### [facility] [address] [place] [address] Dr. Justyn Quintanilla MONO # 0.4 103/ul Normal 0.3-0.8 [facility] Comment on above: Performed By: #### C BC #### [facility] [address] [place] [address] Dr. Justyn Quintanilla Monocytes/100 WBC (Bld) 9.8 % Normal 1.7-12.0 [facility] Comment on above: Performed By: #### C BC #### [facility] [address] [place] [address] Dr. Justyn Quintanilla NEUT # 2.3 103/ul Normal 1.4-6.5 [facility] Comment on above: Performed By: #### C BC #### [facility] [address] [address] [address] Justyn Quintanilla Neutrophils/100 WBC (Bld) 57.6 % Normal 43.0-75.0 [facility] Comment on above: Performed By: #### C BC #### [facility] [address] [address] [address] Justyn Quintanilla Platelet mean volume (Bld) [Entitic vol] 9.2 fL Critically low 9.5-13.5 [facility] Comment on above: Performed By: #### C BC #### [facility] [address] [address] [address] Justyn Quintanilla PLT 361 103/ul Normal 150-450 [facility] Comment on above: Performed By: #### C BC #### [facility] [address] [address] [address] Justyn Quintanilla RBC 3.15 106/ul Critically low 4.20-5.[address] [facility] Comment on above: Performed By: #### C BC #### [facility] [address] [address] [address] Justyn Quintanilla WBC 4.1 103/ul Normal 4.0-11.0 [facility] Comment on above: Performed By: #### C BC #### [facility] [address] [address] [address] Justyn Quintanilla MG MAMM SCREEN 3D JACQUELINE CADon 01-08-2022 MG MAMM SCREEN 3D JACQUELINE CAD Patient: LESILE LOPEZ Exam Date: 01/08/2022 : 1950 Gender:F Ordering : DR VENECIA KING M.D. Admission #: [id number] Family : Order #: [id number] CLICK HERE TO VIEW EXAM RADIOLOGY REPORT [...] breast cancer at age 81. LOCATION: [facility] BREAST COMPOSITION: Scattered areas fibroglandular density. [...] Pro MD on 01/23/2022 at 08:05 Normal [facility] XR DEXA BONE DENSITYon 01-08 XR [...] by: CINTHYA PHAM Date: 2022-01-08 18:00 Normal [facility] Complete Blood Count with Au to Diffon 12-17-2021 Basophils (Bld) [#/Vol] 0.05 10*3/uL Normal 0.00-0.20 [facility] Comment on above: Performed By: #### V ITD, LIPD, smear, CBCAD, CMP #### [facility] [address] [place], [place] [id number] Basophils/100 WBC (Bld) 1.3 % Normal [facility] Comment on above: Performed By: #### V ITD, LIPD, smear, CBCAD, CMP #### [facility] [address] [place], [place] [id number] Eosinophils (Bld) [#/Vol] 0.08 10*3/uL Normal 0.02-0.50 [facility] Comment on above: Performed By: #### V ITD, LIPD, smear, CBCAD, CMP #### [facility] [address] [place], [place] [id number] Eosinophils/100 WBC (Bld) 2.1 % Normal [facility] Comment on above: Performed By: #### V ITD, LIPD, smear, CBCAD, CMP #### [facility] [address] [place], [place] [id number] Erythrocyte distribution width (RBC) [Ratio] 17.8 % High 11.0-15.0 [facility] Comment on above: Performed By: #### V ITD, LIPD, smear, CBCAD, CMP #### [facility] [address] [place], [place] [id number] Hematocrit (Bld) [Volume fraction] 30.4 % Low 35.0-47.0 [facility] Comment on above: Performed By: #### V ITD, LIPD, smear, CBCAD, CMP #### [facility] [address] [place], [place] [id number] Hemoglobin (Bld) [Mass/Vol] 8.7 g/dL Low 11.6-15.5 [facility] Comment on above: Performed By: #### V ITD, LIPD, smear, CBCAD, CMP #### [facility] [address] [place], [place] [id number] Lymphocytes (Bld) [#/Vol] 1.0 10*3/uL Normal 0.9-3.9 [facility] Comment on above: Performed By: #### V ITD, LIPD, smear, CBCAD, CMP #### [facility] [address] [place], [place] [id number] Lymphocytes/100 WBC (Bld) 25.1 % Normal [facility] Comment on above: Performed By: #### V ITD, LIPD, smear, CBCAD, CMP #### [facility] [address] [place], [place] [id number] MCH (RBC) [Entitic mass] 21.1 pg Low 27.0-33.0 [facility] Comment on above: Performed By: #### V ITD, LIPD, smear, CBCAD, CMP #### [facility] [address] [place], [place] [id number] MCHC (RBC) [Mass/Vol] 28.6 g/dL Low 32.0-36.0 [facility] Comment on above: Performed By: #### V ITD, LIPD, smear, CBCAD, CMP #### [facility] [address] [place], [place] [id number] MCV (RBC) [Entitic vol] 74 fL Low 80-100 [facility] Comment on above: Performed By: #### V ITD, LIPD, smear, CBCAD, CMP #### [facility] [address] [place], [place] [id number] Monocytes (Bld) [#/Vol] 0.4 10*3/uL Normal 0.2-0.9 [facility] Comment on above: Performed By: #### V ITD, LIPD, smear, CBCAD, CMP #### [facility] [address] [place], [place] [id number] Monocytes/100 WBC (Bld) 9.9 % Normal [facility] Comment on above: Performed By: #### V ITD, LIPD, smear, CBCAD, CMP #### [facility] [address] [place], [place] [id number] Neutrophils (Bld) [#/Vol] 2.4 10*3/uL Normal 1.5-7.8 [facility] Comment on above: Performed By: #### V ITD, LIPD, smear, CBCAD, CMP #### [facility] [address] [place], [place] [id number] Neutrophils/100 WBC (Bld) 61.3 % Normal [facility] Comment on above: Performed By: #### V ITD, LIPD, smear, CBCAD, CMP #### [facility] [address] [place], [place] [id number] Platelet mean volume (Bld) [Entitic vol] 10.00 fL Normal 7.50-12.50 [facility] Comment on above: Performed By: #### V ITD, LIPD, smear, CBCAD, CMP #### [facility] [address] [place], [place] [id number] Platelets (Bld) [#/Vol] 255 10*3/uL Normal 140-400 [facility] Comment on above: Performed By: #### V ITD, LIPD, smear, CBCAD, CMP #### [facility] [address] [place], [place] [id number] RBC (Bld) [#/Vol] 4.13 10*6/uL Normal 3.90-5.20 [facility] Comment on above: Performed By: #### V ITD, LIPD, smear, CBCAD, CMP #### [facility] [address] [place], [place] [id number] RDW-SD 46.7 fL Normal 37.0-50.0 [facility] Comment on above: Performed By: #### V ITD, LIPD, smear, CBCAD, CMP #### [facility] [address] [place], [place] [id number] REFLEX Smear Review Normal [facility] Comment on above: Performed By: #### V ITD, LIPD, smear, CBCAD, CMP #### [facility] [address] [place], [place] [id number] WBC (Bld) [#/Vol] 3.8 10*3/uL Normal 3.8-11.0 [facility] Comment on above: Performed By: #### V ITD, LIPD, smear, CBCAD, CMP #### [facility] [address] [place], [place] [id number] Comprehensive Metabolic Pane [facility] 12-17-2021 Albumin [Mass/Vol] 4.1 g/dL Normal 3.6-5.1 [place] [facility] Comment on above: Performed By: #### V ITD, LIPD, smear, CBCAD, CMP #### [facility] [address] [place], [place] [id number] Albumin/Globulin [Mass ratio] 2.0 {ratio} Normal 1.0-2.5 [facility] Comment on above: Performed By: #### V ITD, LIPD, smear, CBCAD, CMP #### [facility] [address] [place], [place] [id number] ALP [Catalytic activity/Vol] 85 U/L Normal 35-119 [facility] Comment on above: Performed By: #### V ITD, LIPD, smear, CBCAD, CMP #### [facility] [address] [place], [place] [id number] ALT [Catalytic activity/Vol] 12 U/L Normal 6-33 [facility] Comment on above: Result Comment: 06/26 Female reference range changed. Performed By: #### V ITD, LIPD, smear, CBCAD, CMP #### [facility] [address] [place], [place] [id number] Anion gap [Moles/Vol] 15 mmol/L Normal 12-20 [facility] Comment on above: Result Comment: Effe ctive 08/01/2019 reference range changed. Performed By: #### V ITD, LIPD, smear, CBCAD, CMP #### [facility] [address] [place], [place] [id number] AST [Catalytic activity/Vol] 18 U/L Normal 9-34 [facility] Comment on above: Performed By: #### V ITD, LIPD, smear, CBCAD, CMP #### [facility] [address] [place], [place] [id number] Bilirubin [Mass/Vol] 0.47 mg/dL Normal 0.30-1.20 [facility] Comment on above: Performed By: #### V ITD, LIPD, smear, CBCAD, CMP #### [facility] [address] [place], [place] [id number] BUN/CREA 28 Ratio High 6-22 [facility] Comment on above: Performed By: #### V ITD, LIPD, smear, CBCAD, CMP #### [facility] [address] [place], [place] [id number] Calcium [Mass/Vol] 9.3 mg/dL Normal 8.6-10.2 [facility] Comment on above: Performed By: #### V ITD, LIPD, smear, CBCAD, CMP #### [facility] [address] [place], [place] [id number] Chloride [Moles/Vol] 103 mmol/L Normal 98-107 [facility] Comment on above: Performed By: #### V ITD, LIPD, smear, CBCAD, CMP #### [facility] [address] [place], [place] [id number] CO2 [Moles/Vol] 27 mmol/L Normal 20-31 [facility] Comment on above: Performed By: #### V ITD, LIPD, smear, CBCAD, CMP #### [facility] [address] [place], [place] [id number] Creatinine [Mass/Vol] 0.6 mg/dL Normal 0.6-1.4 [facility] Comment on above: Performed By: #### V ITD, LIPD, smear, CBCAD, CMP #### [facility] [address] [place], [place] [id number] eGFRAA 122 mL/min/1.73m2 Normal >60 [facility] Comment on above: Performed By: #### V ITD, LIPD, smear, CBCAD, CMP #### [facility] [address] [place], [place] [id number] eGFRNAA 101 mL/min/1.73m2 Normal >60 [facility] Comment on above: Performed By: #### V ITD, LIPD, smear, CBCAD, CMP #### [facility] [address] [place], [place] [id number] Globulin (S) [Mass/Vol] 2.1 g/dL Normal 1.9-3.7 [facility] Comment on above: Performed By: #### V ITD, LIPD, smear, CBCAD, CMP #### [facility] [address] [place], [place] [id number] Glucose [Mass/Vol] 100 mg/dL High 65-99 [facility] Comment on above: Result Comment: For FASTING Glucose --- ADA reference ranges: Normal 65-99 mg/dl Prediabetes 100-125 Diabetes >/= 126 Performed By: #### V ITD, LIPD, smear, CBCAD, CMP #### [facility] [address] [place], [place] [id number] Potassium [Moles/Vol] 4.8 mmol/L Normal 3.5-5.5 [facility] Comment on above: Performed By: #### V ITD, LIPD, smear, CBCAD, CMP #### [facility] [address] [place], [place] [id number] Protein [Mass/Vol] 6.2 g/dL Normal 6.1-8.1 [place] [facility] Comment on above: Performed By: #### V ITD, LIPD, smear, CBCAD, CMP #### [facility] [address] [place], [place] [id number] Sodium [Moles/Vol] 140 mmol/L Normal 135-146 [place] [facility] Comment on above: Performed By: #### V ITD, LIPD, smear, CBCAD, CMP #### [facility] [address] [place], [place] [id number] Urea nitrogen [Mass/Vol] 16 mg/dL Normal 7-25 [facility] Comment on above: Performed By: #### V ITD, LIPD, smear, CBCAD, CMP #### [facility] [address] [place], [place] [id number] Hemoglobin A1Con 12-17-2021 EAG 122.63 Normal [facility] Comment on above: Performed By: #### A 1C #### [facility] [address] [place], [place] [id number] HbA1c (Bld) [Mass fraction] 5.9 % Normal 4.0-6.0 [facility] Comment on above: Performed By: #### A 1C #### [facility] [address] [place], [place] [id number] Lipid Panelon 12-17-2021 Cholesterol [Mass/Vol] 178 mg/dL Normal 125-200 [facility] Comment on above: Result Comment: Low risk < 200mg/dL Borderline risk 201-239 mg/dl High risk > or equal to 240 Performed By: #### V ITD, LIPD, smear, CBCAD, CMP #### [facility] [address] [place], [place] [id number] Cholesterol in HDL [Mass/Vol] 54 mg/dL Normal >40 [facility] Comment on above: Result Comment: High Cardiovascular Risk HDL <40 mg/dL Low Cardiovascular Risk HDL > or equal to 60 mg/dl Performed By: #### V ITD, LIPD, smear, CBCAD, CMP #### [facility] [address] [place], [place] [id number] Cholesterol in LDL [Mass/Vol] 111 mg/dL Normal [facility] Comment on above: Result Comment: LDL ATP III CLASSIFICATION LDL less than 100 mg/dl Optimal LDL 100-129 mg/dl Near or above optimal LDL 130-159 Borderline high LDL 160-189 High LDL greater than 189 mg/dl Very High Performed By: #### V ITD, LIPD, smear, CBCAD, CMP #### [facility] [address] [place], [place] [id number] Cholesterol in VLDL [Mass/Vol] 13 mg/dL Normal [facility] Comment on above: Performed By: #### V ITD, LIPD, smear, CBCAD, CMP #### [facility] [address] [place], [place] [id number] Cholesterol.total/C holesterol in HDL [Mass ratio] 3 {ratio} Normal [facility] Comment on above: Performed By: #### V ITD, LIPD, smear, CBCAD, CMP #### [facility] [address] [place], [place] [id number] Triglyceride [Mass/Vol] 67 mg/dL Normal 30-150 [facility] Comment on above: Result Comment: TRIG ATPIII CLASSIFICATIONS TRIG less than 150 mg/dl Normal TRIG 150-199 mg/dl Borderline High TRIG 200-500 mg/dl High TRIG greather than 500 mg/dl Very High Performed By: #### V ITD, LIPD, smear, CBCAD, CMP #### [facility] [address] [place], [place] [id number] Smear Reviewon 12-17-2021 PLT EST Adequate Normal [facility] Comment on above: Performed By: #### V ITD, LIPD, smear, CBCAD, CMP #### [facility] [address] [place], [place] [id number] RBC morphology finding Nom (Bld) RBC morphology review confirms RBC indices Normal [facility] Comment on above: Performed By: #### V ITD, LIPD, smear, CBCAD, CMP #### [facility] [address] [place], [place] [id number] Vitamin D 25-OHon 12-17-2021 VIT D 25 OH 48 ng/ml Normal >29 [facility] Comment on above: Result Comment: Miladys min D Status Deficiency <20 ng/mL Insufficiency 20-29 ng/mL Optimal 30-100 ng/mL Possible Toxicity >=150 ng/mL Performed By: #### V ITD, LIPD, smear, CBCAD, CMP #### [facility] [address] [place], [place] [id number] Encounters Encounter Date Encounter Type Care Provider Facility Start: 06-07-2024 End: 06-07-2024 ambulatory [facility] Start: 04-04-2024 End: 04-04-2024 ambulatory RUGEN M CHRISTINE Not Available Start: 03-07-2024 End: 03-07-2024 ambulatory TRICIA M HEMMER Not Available Start: 12-25-2023 End: 12-25-2023 ambulatory TRICIA M HEMMER Not Available Start: 12-18-2023 End: 12-18-2023 ambulatory RUGEN CHRISTINE Not Available Start: 10-20-2023 End: 10-20-2023 ambulatory RUGEN M CHRISTINE Not Available Start: 01-01-2023 ambulatory NARENDRANATH L AKSHMIPATHY . Facility:[facility] Start: 12-16-2022 End: 12-16-2022 ambulatory [...] Facility:[facility] Start: 05-22-2022 End: 05-23-[address] TRUJILLO CHRISTINE Facility:[facility] Start: 04-27-2022 End: 05-26-2022 ambulatory SHAIKH Mina MÉNDEZAngel Facility:[facility] Start: 03-27-2022 End: 04-26-2022 ambulatory SHAIKH Mina MÉNDEZAngel Facility:[facility] Start: 03-18-2022 End: 03-25-[address] DELGADILLOTIFFANY CHRISTINE Facility:[facility] Start: 02-24-2022 End: 03-26-2022 ambulatory SHAIKH Mina CÁRDENAS Facility:[facility] Start: 01-24-2022 End: 02-21-2022 ambulatory SHAIKH Mina MÉNDEZAngel Facility:[facility] Start: 01-08-2022 End: 01-09-[address] DELGADILLOTIFFANY CHRISTINE Facility:[facility] Start: 02-09-2018 Patient encounter KRISHNA ALLRED Fac ility:[id number] Start: 02-08-2018 Patient encounter KRISHNA ALLRED Fac ility:1532 Start: 02-08-2018 Patient encounter Facil ity:[id number] Start: 11-27-2017 End: 11-28-2017 Ambulatory DEFAULT PHYSICIAN Facility:[facility] Payers Date Payer Category Payer Medicare [id number] 1958 Unknown [id number] 1950 Unknown [id number] 0.1.133193.3.579.2.59 1950 Unknown [id number] ..[id number] 0.1.358286.3.579.2.59 1950 Unknown [id number] ..[id number] 0.1.097105.3.579.2.593 1950 Unknown [id number] ..[id number] 0.1.988958.3.579.2.593 1950 Unknown [id number] ..[id number] 0.1.832205.3.579.2.593 1950 Unknown [id number] 2.16.84 0.1.289023.3.579.2.593 1950 Unknown [id number] 2.16.84 0.1.335122.3.579.2.593 1950 Unknown [id number] 2.16.84 0.1.161095.3.579.2.593 1950 Unknown [id number] 2.16.84 0.1.627766.3.579.2.593 1950 Unknown [id number] 2.16.84 0.1.953815.3.579.2.593 1950 Unknown [id number] 2.16.84 0.1.195813.3.579.2.593 1950 Unknown [id number] 2.16.84 0.1.393687.3.579.2.593 1950 Unknown [id number] 2.16.84 0.1.747876.3.579.2.593 1950 Unknown [id number] 2.16.84 0.1.677462.3.579.2.593 1950 Unknown [id number] 2.16.84 0.1.025422.3.579.2.593 1950 Unknown [id number] 2.16.84 0.1.282008.3.579.2.593 1950 Unknown [id number] 2.16.84 0.1.175769.3.579.2.593 1950 Unknown [id number] 2.16.84 0.1.137496.3.579.2.1259 1950 Unknown [id number] 2.16.84 0.1.726409.3.579.2.1259 1950 Unknown [id number] 2.16.84 0.1.429312.3.579.2.1259 1950 Unknown [id number] 2.16.84 0.1.954261.3.579.2.1259 1950 Unknown [id number] 2.16.84 0.1.677368.3.579.2.1259 Medicare [id number] Unknown Progress note 06-07-2024 Note Date & Type Note Facility 06-07-2024 Note [place] [facility] Consult [place] [facility] Reason for visit: Afib HPI: Leslie Lopez is a 73 y.o. year old with past medical history of hypertension, Obesity s/p gastric bypass atrial fibrillation has not been seen by rehabilitation physician in the past. She presented to her PCP who thereafter referred to us for establishing care. Her initial diagnosis of A-fib occurred when she was in [place] and was seen in the hospital with food poisoning and was noted to have an EKG that revealed A-fib. Subsequently she was seen by rehabilitation physician who placed her on Coumadin but cardioversion was never offered since it was difficult to maintain therapeutic range. She had been placed on Coumadin since then. EKG 06/07/2024 shows atrial fibrillation with varying ventricular rate. PMH: Past Medical History: Diagnosis Date Abnormal ECG Arrhythmia ASD (atrial septal defect) Atrial fibrillation (CMS/HCC) Diabetes mellitus (CMS/HCC) Heart valve disease Hypertension PSH: Past Surgical History: Procedure Laterality Date CHOLECYSTECTOMY GASTRIC BYPASS HYSTERECTOMY TONSILLECTOMY SH: Social Determinants of Health Tobacco Use: Low Risk (06/07/2024) Patient History Smoking Tobacco Use: Never Smokeless Tobacco Use: Never Passive Exposure: Not on file Alcohol Use: Not on file Financial Resource Strain: Not on file Food Insecurity: Not on file Transportation Needs: Not on file Physical Activity: Not on file Stress: Not on file Social Connections: Not on file Intimate Partner Violence: Not on file Depression: Not on file Housing Stability: Not on file Utilities: Not on file Allergies: Allergies Allergen Reactions Penicillin Unknown Weight: 120kg Visit Vitals BP (!) 148/98 (BP Location: Left arm, Patient Position: Sitting) Pulse 65 Ht 1.651 m (5' 5 ) Wt 120 kg (265 lb) SpO2 95% BMI 44.10 kg/m??? Smoking Status Never BSA 2.35 m??? Meds: Current Outpatient Medications on File Prior to Visit Medication Sig Dispense Refill carvedilol (Coreg) 12.5 mg tablet Take 1 tablet by mouth with breakfast and with evening meal. dilTIAZem CD (Cardizem CD) 240 mg 24 hr capsule Take 1 capsule by mouth in the morning. furosemide (Lasix) 20 mg tablet Take 20 mg by mouth twice a day. metaxalone (Skelaxin) 800 mg tablet Take 800 mg by mouth if needed for muscle spasms. metFORMIN (Glucophage) 500 mg tablet Take 500 mg by mouth with breakfast. PARoxetine (Paxil) 20 mg tablet Take 20 mg by mouth. potassium chloride CR (Klor-Con M10) 10 mEq ER tablet Take 10 mEq by mouth in the morning. pregabalin (Lyrica) 50 mg capsule Take 50 mg by mouth in the morning and at bedtime. warfarin (Coumadin) 5 mg tablet TAKE 1 TABLET ONE TIME DAILY, EXCEPT TAKE 2 TABLETS ON SUNDAYS AND WEDNESDAYS No current facility-administered medications on file prior to visit. ROS: Review of Systems Constitutional: Positive for malaise/fatigue. Cardiovascular: Positive for dyspnea on exertion, leg swelling and palpitations ( sometimes ). Respiratory: Positive for wheezing. Musculoskeletal: Positive for joint pain. All other systems reviewed and are negative. Physical Exam: Constitutional General Appearance: well-nourished, well-developed, appears stated age Level of Distress: comfortable Psychiatric Mental Status: alert, normal affect Orientation: oriented to time, place, and person Insight: good judgement Eyes Lids and Conjunctivae: non-injected, no xanthelasma ENMT Ears: no lesions on external ear Nose: no lesions on external nose Oropharynx: no cyanosis, no pallor Neck Neck: supple, trachea midline Carotid Arteries: bilateral normal upstroke, no bruits Jugular Veins: normal jugular venous pressure Thyroid: not enlarged Lungs Respiratory Effort: unlabored Chest Exam: normal curvature, no thoracic deformity Auscultation: clear, no wheezing, no rales, no rhonchi Cardiovascular Rate And Rhythm: regular Heart Sounds: normal S1, normal s2, no gallop Systolic Murmur: not heard Diastolic Murmur: not heard Extremities: no cyanosis, no edema, no peripheral signs of emboli Peripheral Pulses Radial Pulse: normal Abdomen Inspection and Palpation: soft, non distended, no bruit, non tender Musculoskeletal Inspection: no joint swelling Neurologic Gait: normal gait Skin Inspection and Palpation: warm and dry Nails: no clubbing Labs: @LABRESULTS@ No results found for: CHOLESTEROL TOTAL , HDL , LDL CALC , LDL DIRECT , TRIGLYCERIDES , TSH , T3 TOTAL , T4 TOTAL , THYROID PEROXIDASE AB , BNP EKG: No results found for this or any previous visit (from the past 4464 hour(s)). Echo: 03/15/2024 Stress test: 2018: Normal Coronary angiogram: @CATH@ Diagnostic Imaging: No images are attached to the encounter. Assessment and Plan: -Persistent atrial fibrillation: Will start the patient on amiodarone once she has s (more content not included)... [facility] Consultation note 12-02-2022 Note Date & Type [...] our patients to inform us about any [id number] medications or herbal remedies/nutritional supplements/alternative remedies. 2. [...] options with their primary care provider. [facility] Summary Purpose Family History No Family [...] and content) DATE CREATED AUTHOR 01/14/2018 [facility] DATE CREATED AUTHOR AUTHOR'S ORGANIZ ATION 02/11/2018 [facility] DATE CREATED AUTHOR AUTHOR'S ORGANIZ ATION 02/11/2018 [facility] DATE CREATED AUTHOR AUTHOR'S ORGANIZ ATION 12/18/2021 [facility] DATE CREATED AUTHOR AUTHOR'S ORGANIZ ATION 01/02/2023 [facility] DATE CREATED AUTHOR AUTHOR'S ORGANIZ ATION 04/05/2024 [facility] DATE CREATED AUTHOR AUTHOR'S ORGANIZ ATION 06/19/2024 [facility] FOR RECORDS PERTAINING TO PATIENTS WHO ARE [...] BE BASED ON THE PRIMARY CLINICAL RECORDS. [employer] provides no warranty or guarantee of the accuracy or completeness of information in this document.
--- NOTE | 2024-06-29 10:43 | P.CN_ITS ---
Consult Note: HPI Data of Consult Patient: known to practice within the last 3 years Requesting Physician: Perla Oreilly NP Primary Care Provider: CASSANDRA KING Consult Narrative Reason for consult: f/u Narrative: Leslie Mathis a pleasant 73 year old female presents for evaluation and management of chronic bilateral knee. Patient reports a history of fibromyalgia as well. Today rating pain 8/10 in bilateral knees. Patient is on warfarin and is advised not to take NSAIDs, however she continues to use aleve advil and motrin PRN but has her INR and PT checked. Patient previously reported benefit to duloxetine 90mgs daily but is no longer on it, taking paxil 20mg daily, hx of failure to respond to steroid and durolane injections, pt stating she had significant relief from her prior genicular RFAs and they are now wearing off. since starting pregabalin 50mg BID she has noticed significant improvement in her FM and generalized pain without side effects. cc:: CC: Perla Oreilly NP Review of Systems ROS Status of ROS 10 or more systems reviewed and unremark able except as noted in history and below Musculoskeletal Reports: joint pain PFSH PFSH Social History Smoking status: Never smoker Meds Home Medications and Allergies Home Medications ?Medication ?Instructions ?Recorded ?Confirmed ?Type acetaminophen 500 mg tablet 500 mg PO BID PRN pain 01/01/23 06/16/23 History (Tylenol Extra Strength) ascorbic acid (vitamin C) 500 mg 500 mg PO DAILY 01/01/23 06/16/23 History tablet calcium 100 mg capsule mg PO 01/01/23 History carvedilol 12.5 mg tablet 12.5 mg PO BID 01/01/23 06/16/23 History diltiazem HCl 240 mg capsule,24 240 mg PO DAILY 01/01/23 06/02/23 History hr,extended release ferrous sulfate 325 mg (65 mg 325 mg PO DAILY 01/01/23 06/16/23 History iron) tablet (iron) furosemide 20 mg tablet (Lasix) 20 mg PO BID 01/01/23 06/16/23 History ibuprofen 800 mg tablet 800 mg PO QDAY 01/01/23 07/16/23 History metaxalone 800 mg tablet 800 mg PO TID 01/01/23 06/16/23 History metformin 500 mg tablet 500 mg PO DAILY 01/01/23 06/16/23 History warfarin 5 mg tablet 5 mg PO DAILY 01/01/23 06/16/23 History duloxetine 30 mg capsule,delayed 30 mg PO .AM 07/16/23 07/16/23 History release (Cymbalta) duloxetine 60 mg capsule,delayed 60 mg PO .hs #90 caps 08/06/23 Rx release meclizine 25 mg tablet 25 mg PO TID PRN dizziness #20 tabs 08/15/23 Rx pregabalin 50 mg capsule (Lyrica) 50 mg PO BID #60 caps 04/14/24 Rx Allergies Allergy/AdvReac Type Severity Reaction Status Date / Time Penicillins Allergy Verified 04/14/23 10:35 Exam Narrative Exam Narrative: generalized myofascial pain on exam Constitutional Documenting provider has reviewed patient's vital signs: yes Common normals: no apparent distress, oriented x3, healthy appearing, alert and well nourished General appearance: cooperative HENMT Common normals: normocephalic, hearing grossly normal bilaterally and moist oral mucous membranes Head and scalp: normocephalic Eye Common normals: PERRL Pupil: PERRL Neck & C-Spine Common normals: full ROM General: normal visual inspection Chest Common normals: inspection of chest normal Respiratory Common normals: normal respiratory effort, no retractions and no use of accessory muscles Back & Pelvis Thoracic spine/upper back: normal to inspection and thoracic ROM normal Lumbar spine/lower back: normal to inspection, pain with ROM and straight leg raise negative bilaterally Sacroiliac joints: SI joints normal Other: positive bilateral facet loading Extremity Common normals: no calf tenderness and no pedal edema Right lower extremity: knee joint (enlarged, pain with weight bearing, limited ROM, weakness) Left lower extremity: knee joint (enlarged, pain with weight bearing, limited ROM, weakness) Neuro Common normals: oriented x3, CN's II-XII intact bilaterally, moves all extremities, no focal motor deficits, no sensory deficits noted and deep tendon reflexes 2+ bilaterally Sensorium/orientation: alert Motor exam: strength 5/5 throughout and no movement abnormalities noted Psych Common normals: mental status grossly normal, thought process normal, cooperative, affect normal, speech normal and activity/motor behavior normal Speech: normal speech Thought process: normal thought process Results Additional Findings Additional findings: If on a controlled substance or opioids, I have checked an [place] report on this patient and there are no aberrancies noted in the prescribing history.??If on a controlled substance or opioid a drug screen was completed and reviewed within the last year, and if there has not been a drug screen completed we ordered one today to monitor higher risk, state monitored pain medication use. As part of providing excellent, safe, comprehensive care, the following was completed at our patient's visit: 1. A medication reconciliation and review to ensure accurate knowledge of current/active medications, including asking our patients to inform us about any [id number] medications or herbal remedies/nutritional supplements/alternative remedies. 2. A review to specifically ensure our patients have had annual screening for screening for depression, screening for tobacco use, and screening for unhealthy alcohol use. For concerning screenings had a discussion with the patient, provided patient education, and recommended follow-up with primary care provider when appropriate. If patient noted with a risk of falling, they received education on strength, gait, and balance training to prevent future risk of falling. Assessment and Plan Assessment and Plan (1) Knee osteoarthritis: (2) Fibromyalgia: (3) Chronic pain syndrome: (4) Generalized OA: (5) Muscle spasm: Plan pt would like to repeat left then right genicular RFAs under fluoroscopy, previous injections provided >50% improvement greater than 6 months continue pregabalin 50mg BID UDS today, start tylenol #3 for severe OA pain unresponsive to tylenol and NSAIDs. pt should not be taking nsaids while on warfarin but continues to utilize ibuprofen PRN. risks vs benefits reviewed. 7 tabs for 1 week trial. pt to call for refill in the future will provide 10 tabs/month if needed f/u after completion of genicular RFAs
== END 2024-06-29 10:11 | disposition home or self-care (01) ==
LOC: PM 10:10
PROVIDERS: PCP Family Medicine; Visit Provider Nurse Practitioner
DX: M17.0 Bilateral primary osteoarthritis of knee (principal); M79.7 Fibromyalgia; G89.4 Chronic pain syndrome; M62.838 Other muscle spasm
CPT/HCPCS: G0463

== ENCOUNTER 2024-07-12 07:36 | Day surgery (SDC) | payer MEDICARE, BC, SELFPAY ==
--- OUTSIDE RECORDS SUMMARY | 2024-07-12 07:41 | XMS_ITS | CCD ---
Author Organization [facility] Care Team Providers Care [place]ite Worker Name Role Phone PHYSICIAN, DEFAULT Unavailable [...] sources) Penicillins Drug allergy (disorder) 07-12-2016 [facility] Repository (1 source) Penicillin; Translations: [PENICILLIN] Drug Allergy 06-07-2024 [facility] Repository Problems Active Problems Problem Classification Problem [...] Onset: 11-22-2022 Episodic Other aftercare (1 source) prison (current) use of anticoagulants; Translations: [PRISON CURRNT USE ANTICOAGULANTS] Onset: 12-24-2022 Episodic Other [...] Range Facility Office Visiton 06-07-2024 Follow-up visit [id number] DelfinaLeslie R 1950 F Date Provider Department Center 06/07/2024 CARLINE SHRESTHA [facility] Family History Problem Relation Age of Onset No Known Problems Mother No Known Problems Father Family Status - Relation Status Age at Mother Father Level of Service:82432 [place] OFFICE/OUTPATIENT NEW MODERATE MDM 45 MINUTES Normal [facility] PROTIMEon 12-16-2022 INR Coag (PPP) [Relative time] 1.02 {INR} Normal [facility] Comment on above: Performed By: #### P T #### [facility] [address] [place] [address] Dr. Justyn Quintanilla INR GUIDELINES SEE BELOW Normal [facility] Comment on above: Result Comment: THAI RED INR: 2.0 - 3.0 CONDITIONS NOT LISTED BELOW 2.5 - 3.5 FOR PROSTHETIC HEART VALVE REPLACEMENT 2.5 - 3.5 RECURRENT THROMBOSIS Performed By: #### P T #### [facility] [address] [address] [address] Justyn Quintanilla PT Coag (PPP) [Time] 10.8 s Normal 9.0-11.6 [facility] Comment on above: Performed By: #### P T #### [facility] [address] [address] [address] Justyn Quintanilla CBC AUTO DIFFon 05-22-2022 BASO # 0.0 103/ul Normal 0.0-0.1 [facility] Comment on above: Performed By: #### C BC #### [facility] [address] [address] [address] Justyn Quintanilla Basophils/100 WBC (Bld) 0.5 % Normal 0.2-2.0 [facility] Comment on above: Performed By: #### C BC #### [facility] [address] [place] [address] Dr. Justyn Quintanilla EO # 0.1 103/ul Normal 0.0-0.7 [facility] Comment on above: Performed By: #### C BC #### [facility] [address] [place] [address] Dr. Justyn Quintanilla Eosinophils/100 WBC (Bld) 2.9 % Normal 0.9-7.0 [facility] Comment on above: Performed By: #### C BC #### [facility] [address] [place] [address] Dr. Justyn Quintanilla Erythrocyte distribution width (RBC) [Ratio] 20.7 % Critically high 11.0-15.0 [facility] Comment on above: Performed By: #### C BC #### [facility] [address] [place] [address] Dr. Justyn Quintanilla Hematocrit (Bld) [Volume fraction] 29.7 % Critically low 36.0-48.0 [facility] Comment on above: Performed By: #### C BC #### [facility] [address] [place] [address] Dr. Justyn Quintanilla Hemoglobin (Bld) [Mass/Vol] 9.0 g/dL Critically low 12.0-16.0 [facility] Comment on above: Performed By: #### C BC #### [facility] [address] [place] [address] Dr. Justyn Quintanilla IG # 0.01 10e3/ul Normal 0.00-0.03 [facility] Comment on above: Performed By: #### C BC #### [facility] [address] [place] [address] Dr. Justyn Quintanilla IG % 0.2 % Normal 0.0-0.5 [facility] Comment on above: Performed By: #### C BC #### [facility] [address] [place] [address] Dr. Justyn Quintanilla LYMPH # 1.2 103/ul Normal 1.2-3.8 [facility] Comment on above: Performed By: #### C BC #### [facility] [address] [place] [address] Dr. Justyn Quintanilla Lymphocytes/100 WBC (Bld) 29.0 % Normal 20.5-60.0 [facility] Comment on above: Performed By: #### C BC #### [facility] [address] [place] [address] Dr. Justyn Quintanilla MANUAL DIFF REQ NO Normal [facility] Comment on above: Performed By: #### C BC #### [facility] [address] [place] [address] Dr. Justyn Quintanilla MCH (RBC) [Entitic mass] 28.6 pg Normal 26.7-34.0 [facility] Comment on above: Performed By: #### C BC #### [facility] [address] [place] [address] Dr. Justyn Quintanilla MCHC (RBC) [Mass/Vol] 30.3 g/dL Normal 29.9-35.2 [facility] Comment on above: Performed By: #### C BC #### [facility] [address] [place] [address] Dr. Justyn Quintanilla MCV (RBC) [Entitic vol] 94.3 fL Normal 81.0-99.0 [facility] Comment on above: Performed By: #### C BC #### [facility] [address] [place] [address] Dr. Justyn Quintanilla MONO # 0.4 103/ul Normal 0.3-0.8 [facility] Comment on above: Performed By: #### C BC #### [facility] [address] [place] [address] Dr. Justyn Quintanilla Monocytes/100 WBC (Bld) 9.8 % Normal 1.7-12.0 [facility] Comment on above: Performed By: #### C BC #### [facility] [address] [place] [address] Dr. Justyn Quintanlila NEUT # 2.3 103/ul Normal 1.4-6.5 [facility] Comment on above: Performed By: #### C BC #### [facility] [address] [address] [address] Justyn Quintanilla Neutrophils/100 WBC (Bld) 57.6 % Normal 43.0-75.0 [facility] Comment on above: Performed By: #### C BC #### [facility] [address] [address] [address] Justyn Quintanilla Platelet mean volume (Bld) [Entitic vol] 9.2 fL Critically low 9.5-13.5 [facility] Comment on above: Performed By: #### C BC #### [facility] [address] [address] [address] Justyn Quintanilla PLT 361 103/ul Normal 150-450 [facility] Comment on above: Performed By: #### C BC #### [facility] [address] [address] [address] Justyn Quintanilla RBC 3.15 106/ul Critically low 4.20-5.40 [facility] Comment on above: Performed By: #### C BC #### [facility] [address] [address] [address] Justyn Quintanilla WBC 4.1 103/ul Normal 4.0-11.0 [facility] Comment on above: Performed By: #### C BC #### [facility] [address] [address] [address] Justyn Quintanilla MG MAMM SCREEN 3D JACQUELINE CADon 01-08-2022 MG MAMM SCREEN 3D JACQUELINE CAD Patient: LESLIE LOPEZ Exam Date: 01/08/2022 : 1950 Gender:F Ordering : DR VENECIA KING M.D. Admission #: [id number] Family : Order #: [id number] CLICK HERE TO VIEW EXAM RADIOLOGY REPORT [...] breast cancer at age 81. LOCATION: [facility] BREAST COMPOSITION: Scattered areas fibroglandular density. [...] Pro MD on 01/23/2022 at 08:05 Normal [facility] XR DEXA BONE DENSITYon 01-08 [...] by: CINTHYA PHAM Date: 2022-01-08 18:00 Normal [facility] Complete Blood Count with Au to Diffon 12-17-2021 Basophils (Bld) [#/Vol] 0.05 10*3/uL Normal 0.00-0.20 [facility] [employer] Comment on above: Performed By: #### V ITD, LIPD, smear, CBCAD, CMP #### [facility] [address] [place], [place] [id number] Basophils/100 WBC (Bld) 1.3 % Normal [facility] [employer] Comment on above: Performed By: #### V ITD, LIPD, smear, CBCAD, CMP #### [facility] [address], [place] [id number] Eosinophils (Bld) [#/Vol] 0.08 10*3/uL Normal 0.02-0.50 [facility] Comment on above: Performed By: #### V ITD, LIPD, smear, CBCAD, CMP #### [facility] [address], [place] [id number] Eosinophils/100 WBC (Bld) 2.1 % Normal [facility] Comment on above: Performed By: #### V ITD, LIPD, smear, CBCAD, CMP #### [facility] [address], [place] [id number] Erythrocyte distribution width (RBC) [Ratio] 17.8 % High 11.0-15.0 [facility] Comment on above: Performed By: #### V ITD, LIPD, smear, CBCAD, CMP #### [facility] [address], [place] [id number] Hematocrit (Bld) [Volume fraction] 30.4 % Low 35.0-47.0 [facility] Comment on above: Performed By: #### V ITD, LIPD, smear, CBCAD, CMP #### [facility] [address], [place] [id number] Hemoglobin (Bld) [Mass/Vol] 8.7 g/dL Low 11.6-15.5 [facility] Comment on above: Performed By: #### V ITD, LIPD, smear, CBCAD, CMP #### [facility] [address], [place] [id number] Lymphocytes (Bld) [#/Vol] 1.0 10*3/uL Normal 0.9-3.9 [facility] Comment on above: Performed By: #### V ITD, LIPD, smear, CBCAD, CMP #### [facility] [address], [place] [id number] Lymphocytes/100 WBC (Bld) 25.1 % Normal [facility] Comment on above: Performed By: #### V ITD, LIPD, smear, CBCAD, CMP #### [facility] [address], [place] [id number] MCH (RBC) [Entitic mass] 21.1 pg Low 27.0-33.0 [facility] Comment on above: Performed By: #### V ITD, LIPD, smear, CBCAD, CMP #### [facility] [address], [place] [id number] MCHC (RBC) [Mass/Vol] 28.6 g/dL Low 32.0-36.0 [facility] [employer] Comment on above: Performed By: #### V ITD, LIPD, smear, CBCAD, CMP #### [facility] [address], [place] [id number] MCV (RBC) [Entitic vol] 74 fL Low 80-100 [facility] [employer] Comment on above: Performed By: #### V ITD, LIPD, smear, CBCAD, CMP #### [facility] [address], [place] [id number] Monocytes (Bld) [#/Vol] 0.4 10*3/uL Normal 0.2-0.9 [facility] Comment on above: Performed By: #### V ITD, LIPD, smear, CBCAD, CMP #### [facility] [address], [place] [id number] Monocytes/100 WBC (Bld) 9.9 % Normal [facility] Comment on above: Performed By: #### V ITD, LIPD, smear, CBCAD, CMP #### [facility] [address], [place] [id number] Neutrophils (Bld) [#/Vol] 2.4 10*3/uL Normal 1.5-7.8 [facility] [employer] Comment on above: Performed By: #### V ITD, LIPD, smear, CBCAD, CMP #### [facility] [address], [place] [id number] Neutrophils/100 WBC (Bld) 61.3 % Normal [facility] Comment on above: Performed By: #### V ITD, LIPD, smear, CBCAD, CMP #### [facility] [address], [place] [id number] Platelet mean volume (Bld) [Entitic vol] 10.00 fL Normal 7.50-12.50 [facility] Comment on above: Performed By: #### V ITD, LIPD, smear, CBCAD, CMP #### [facility] [address], [place] [id number] Platelets (Bld) [#/Vol] 255 10*3/uL Normal 140-400 [facility] Comment on above: Performed By: #### V ITD, LIPD, smear, CBCAD, CMP #### [facility] [address], [place] [id number] RBC (Bld) [#/Vol] 4.13 10*6/uL Normal 3.90-5.20 [facility] Comment on above: Performed By: #### V ITD, LIPD, smear, CBCAD, CMP #### [facility] [address], [place] [id number] RDW-SD 46.7 fL Normal 37.0-50.0 [facility] Comment on above: Performed By: #### V ITD, LIPD, smear, CBCAD, CMP #### [facility] [address], [place] [id number] REFLEX Smear Review Normal [facility] Comment on above: Performed By: #### V ITD, LIPD, smear, CBCAD, CMP #### [facility] [address], [place] [id number] WBC (Bld) [#/Vol] 3.8 10*3/uL Normal 3.8-11.0 [facility] [employer] Comment on above: Performed By: #### V ITD, LIPD, smear, CBCAD, CMP #### [facility] [address], [place] [id number] [facility] 12-17-2021 Albumin [Mass/Vol] 4.1 g/dL Normal 3.6-5.1 [facility] [employer] Comment on above: Performed By: #### V ITD, LIPD, smear, CBCAD, CMP #### [facility] [address], [place] [id number] Albumin/Globulin [Mass ratio] 2.0 {ratio} Normal 1.0-2.5 [facility] Comment on above: Performed By: #### V ITD, LIPD, smear, CBCAD, CMP #### [facility] [address], [place] [id number] ALP [Catalytic activity/Vol] 85 U/L Normal 35-119 [facility] Comment on above: Performed By: #### V ITD, LIPD, smear, CBCAD, CMP #### [facility] [address], [place] [id number] ALT [Catalytic activity/Vol] 12 U/L Normal 6-33 [facility] Comment on above: Result Comment: 06/26 Female reference range changed. Performed By: #### V ITD, LIPD, smear, CBCAD, CMP #### [facility] [address], [place] [id number] Anion gap [Moles/Vol] 15 mmol/L Normal 12-20 [facility] Comment on above: Result Comment: Effe ctive 08/01/2019 reference range changed. Performed By: #### V ITD, LIPD, smear, CBCAD, CMP #### [facility] [address], [place] [id number] AST [Catalytic activity/Vol] 18 U/L Normal 9-34 [facility] Comment on above: Performed By: #### V ITD, LIPD, smear, CBCAD, CMP #### [facility] [address], [place] [id number] Bilirubin [Mass/Vol] 0.47 mg/dL Normal 0.30-1.20 [facility] Comment on above: Performed By: #### V ITD, LIPD, smear, CBCAD, CMP #### [facility] [address], [place] [id number] BUN/CREA 28 Ratio High 6-22 [facility] Comment on above: Performed By: #### V ITD, LIPD, smear, CBCAD, CMP #### [facility] [address], [place] [id number] Calcium [Mass/Vol] 9.3 mg/dL Normal 8.6-10.2 [facility] Comment on above: Performed By: #### V ITD, LIPD, smear, CBCAD, CMP #### [facility] [address], [place] [id number] Chloride [Moles/Vol] 103 mmol/L Normal 98-107 [facility] Comment on above: Performed By: #### V ITD, LIPD, smear, CBCAD, CMP #### [facility] [address], [place] [id number] CO2 [Moles/Vol] 27 mmol/L Normal 20-31 [facility] Comment on above: Performed By: #### V ITD, LIPD, smear, CBCAD, CMP #### [facility] [address], [place] [id number] Creatinine [Mass/Vol] 0.6 mg/dL Normal 0.6-1.4 [facility] Comment on above: Performed By: #### V ITD, LIPD, smear, CBCAD, CMP #### [facility] [address], [place] [id number] eGFRAA 122 mL/min/1.73m2 Normal >60 [facility] Comment on above: Performed By: #### V ITD, LIPD, smear, CBCAD, CMP #### [facility] [address], [place] [id number] eGFRNAA 101 mL/min/1.73m2 Normal >60 [facility] Comment on above: Performed By: #### V ITD, LIPD, smear, CBCAD, CMP #### [facility] [address], [place] [id number] Globulin (S) [Mass/Vol] 2.1 g/dL Normal 1.9-3.7 [facility] Comment on above: Performed By: #### V ITD, LIPD, smear, CBCAD, CMP #### [facility] [address], [place] [id number] Glucose [Mass/Vol] 100 mg/dL High 65-99 [facility] Comment on above: Result Comment: For FASTING Glucose --- ADA reference ranges: Normal 65-99 mg/dl Prediabetes 100-125 Diabetes >/= 126 Performed By: #### V ITD, LIPD, smear, CBCAD, CMP #### [facility] [address], [place] [id number] Potassium [Moles/Vol] 4.8 mmol/L Normal 3.5-5.5 [facility] [employer] Comment on above: Performed By: #### V ITD, LIPD, smear, CBCAD, CMP #### [facility] [address], [place] [id number] Protein [Mass/Vol] 6.2 g/dL Normal 6.1-8.1 [facility] [facility] Comment on above: Performed By: #### V ITD, LIPD, smear, CBCAD, CMP #### [facility] [address], [place] [id number] Sodium [Moles/Vol] 140 mmol/L Normal 135-146 [facility] [place] [employer] Comment on above: Performed By: #### V ITD, LIPD, smear, CBCAD, CMP #### [facility] [address], [place] [id number] Urea nitrogen [Mass/Vol] 16 mg/dL Normal 7-25 [facility] [employer] Comment on above: Performed By: #### V ITD, LIPD, smear, CBCAD, CMP #### [facility] [address], [place] [id number] Hemoglobin A1Con 12-17-2021 EAG 122.63 Normal [facility] [employer] Comment on above: Performed By: #### A 1C #### [facility] [address], [place] [id number] HbA1c (Bld) [Mass fraction] 5.9 % Normal 4.0-6.0 [facility] [employer] Comment on above: Performed By: #### A 1C #### [facility] [address], [place] [id number] Lipid Panelon 12-17-2021 Cholesterol [Mass/Vol] 178 mg/dL Normal 125-200 [facility] [employer] Comment on above: Result Comment: Low risk < 200mg/dL Borderline risk 201-239 mg/dl High risk > or equal to 240 Performed By: #### V ITD, LIPD, smear, CBCAD, CMP #### [facility] [address], [place] [id number] Cholesterol in HDL [Mass/Vol] 54 mg/dL Normal >40 [facility] [employer] Comment on above: Result Comment: High Cardiovascular Risk HDL <40 mg/dL Low Cardiovascular Risk HDL > or equal to 60 mg/dl Performed By: #### V ITD, LIPD, smear, CBCAD, CMP #### [facility] [address], [place] [id number] Cholesterol in LDL [Mass/Vol] 111 mg/dL Normal [facility] Comment on above: Result Comment: LDL ATP III CLASSIFICATION LDL less than 100 mg/dl Optimal LDL 100-129 mg/dl Near or above optimal LDL 130-159 Borderline high LDL 160-189 High LDL greater than 189 mg/dl Very High Performed By: #### V ITD, LIPD, smear, CBCAD, CMP #### [facility] [address], [place] [id number] Cholesterol in VLDL [Mass/Vol] 13 mg/dL Normal [facility] [employer] Comment on above: Performed By: #### V ITD, LIPD, smear, CBCAD, CMP #### [facility] [address], [place] [id number] Cholesterol.total/C holesterol in HDL [Mass ratio] 3 {ratio} Normal [facility] Comment on above: Performed By: #### V ITD, LIPD, smear, CBCAD, CMP #### [facility] [address], [place] [id number] Triglyceride [Mass/Vol] 67 mg/dL Normal 30-150 [facility] [employer] Comment on above: Result Comment: TRIG ATPIII CLASSIFICATIONS TRIG less than 150 mg/dl Normal TRIG 150-199 mg/dl Borderline High TRIG 200-500 mg/dl High TRIG greather than 500 mg/dl Very High Performed By: #### V ITD, LIPD, smear, CBCAD, CMP #### [facility] [address], [place] [id number] Smear Reviewon 12-17-2021 PLT EST Adequate Normal [facility] Comment on above: Performed By: #### V ITD, LIPD, smear, CBCAD, CMP #### [facility] [address], [place] [id number] RBC morphology finding Nom (Bld) RBC morphology review confirms RBC indices Normal [facility] [employer] Comment on above: Performed By: #### V ITD, LIPD, smear, CBCAD, CMP #### [facility] [address], [place] [id number] Vitamin D 25-OHon 12-17-2021 VIT D 25 OH 48 ng/ml Normal >29 [facility] [employer] Comment on above: Result Comment: Miladys min D Status Deficiency <20 ng/mL Insufficiency 20-29 ng/mL Optimal 30-100 ng/mL Possible Toxicity >=150 ng/mL Performed By: #### V ITD, LIPD, smear, CBCAD, CMP #### [facility] [address], [place] [id number] Encounters Encounter Date Encounter Type Care Provider Facility Start: 06-07-2024 End: 06-07-2024 ambulatory [facility] Start: 04-04-2024 End: 04-04-2024 ambulatory [...] Start: 11-27-2017 End: 11-28-2017 Ambulatory DEFAULT PHYSICIAN Facility:[facility] Payers Date Payer Category Payer Medicare [id number] 1958 Unknown [id number] 1950 Unknown [id number] 0.1.237560.3.579.2.59 1950 Unknown [id number] ..[id number] 0.1.992955.3.579.2.59 1950 Unknown [id number] ..[id number] 0.1.568063.3.579.2.593 1950 Unknown [id number] ..[id number] 0.1.225249.3.579.2.593 1950 Unknown [id number] ..[id number] 0.1.751806.3.579.2.593 1950 Unknown [id number] 2.16.84 0.1.921465.3.579.2.593 1950 Unknown [id number] 2.16.84 0.1.925878.3.579.2.593 1950 Unknown [id number] 2.16.84 0.1.323081.3.579.2.593 1950 Unknown [id number] 2.16.84 0.1.073055.3.579.2.593 1950 Unknown [id number] 2.16.84 0.1.215166.3.579.2.593 1950 Unknown [id number] 2.16.84 0.1.778000.3.579.2.593 1950 Unknown [id number] 2.16.84 0.1.379762.3.579.2.593 1950 Unknown [id number] 2.16.84 0.1.202887.3.579.2.593 1950 Unknown [id number] 2.16.84 0.1.704841.3.579.2.593 1950 Unknown [id number] 2.16.84 0.1.341730.3.579.2.593 1950 Unknown [id number] 2.16.84 0.1.496010.3.579.2.593 1950 Unknown [id number] 2.16.84 0.1.484950.3.579.2.593 1950 Unknown [id number] 2.16.84 0.1.026606.3.579.2.1259 1950 Unknown [id number] 2.16.84 0.1.436157.3.579.2.1259 1950 Unknown [id number] 2.16.84 0.1.251056.3.579.2.1259 1950 Unknown [id number] 2.16.84 0.1.451472.3.579.2.1259 1950 Unknown [id number] 2.16.84 0.1.381331.3.579.2.1259 Medicare [id number] Unknown Progress note 06-07-2024 Note Date & Type Note Facility 06-07-2024 Note [place] [facility] Consult Note [place] [facility] Reason for visit: Afib HPI: Leslie Lopez is a 73 y.o. year old with past medical history of hypertension, Obesity s/p gastric bypass atrial fibrillation has not been seen by aircraft inspector in the past. She presented to her PCP who thereafter referred to us for establishing care. Her initial diagnosis of A-fib occurred when she was in [place] and was seen in the hospital with food poisoning and was noted to have an EKG that revealed A-fib. Subsequently she was seen by aircraft inspector who placed her on Coumadin but cardioversion [...] she has s (more content not included)... [facility] Consultation note 12-02-2022 Note Date & Type [...] our patients to inform us about any [id number] medications or herbal remedies/nutritional supplements/alternative remedies. 2. [...] options with their primary care provider. [facility] Summary Purpose Family History No Family [...] DATE CREATED AUTHOR 01/14/2018 [facility] DATE CREATED AUTHOR AUTHOR'S ORGANIZ ATION 02/11/2018 [facility] DATE CREATED AUTHOR AUTHOR'S ORGANIZ ATION 02/11/2018 [facility] DATE CREATED AUTHOR AUTHOR'S ORGANIZ ATION 12/18/2021 [facility]ical Specialist DATE CREATED AUTHOR AUTHOR'S ORGANIZ ATION 01/02/2023 [facility] DATE CREATED AUTHOR AUTHOR'S ORGANIZ ATION 04/05/2024 [facility] Specialists [facility] DATE CREATED AUTHOR AUTHOR'S ORGANIZ ATION 06/19/2024 [facility] FOR RECORDS PERTAINING TO PATIENTS WHO ARE [...] BE BASED ON THE PRIMARY CLINICAL RECORDS. [employer] provides no warranty or guarantee of the accuracy or completeness of information in this document.
[2024-07-12 08:11] LABS: INR 1.29; Prothrombin Time 13.3 sec (9.0-11.6)
[2024-07-12 08:22] VITALS: BP 136/84; PULSE 69; TEMP 36.1; O2SAT 96
[2024-07-12 09:35] VITALS: BP 120/65; PULSE 70; O2SAT 98
[2024-07-12 09:36] VITALS: BP 122/68; PULSE 66; O2SAT 98
[2024-07-12] MEDS: LIDOCAINE HCL 2% 400 MG/20 ML MDV 7 ML INJ (09:48)
[2024-07-12] MEDS: BUPIVACAINE HCL 0.25% PF 25 MG/10 ML VIAL 4 ML INJ (09:53)
[2024-07-12] MEDS: METHYLPREDNISOLONE ACETATE 40 MG/ML VIAL INJ (09:54)
--- NOTE | 2024-07-12 10:41 | W.PM.PROCNOT ---
Date of procedure: 07/12/24 Pre-op diagnosis: Left knee osteoarthritis Post-op diagnosis: same as pre-op Procedure: Left knee genicular nerve Radiofrequency ablation PreOp diagnosis: pain secondary to include knee osteoarthritis Postop diagnosis same Under fluoroscopic guidance Rhizotomy was created using radio frequency ablation at 80?C for 90 seconds 1 to 2 lesions created at each site. Post lesioning injection of 2 mL each of 0.25% Marcaine and 2% lidocaine with Depo-Medrol 40mg. 0.5 to 1 mL injected at each site Anesthesia local 2% lidocaine for local anesthetic Timeout process compliant After informed consent obtained.Patient brought to the procedure room placed in the supine position skin overlying the area was prepped and draped in a sterile fashion using betadine. 25 gauge needle was used to create a skin wheal over each of the targeted areas utilizing 2% lidocaine. A rhizotomy needle with a 10 mm active tip was inserted over each of the anesthetized areas and directed towards each of the genicular nerves accomplished under fluoroscopic guidance. after encountering the same we had positive sensory stimulation, negative motor stimulation was noted. lesions were then created. Post lesioning, steroid solution was injected needles removed. Patient was transferred to recovery room in stable condition to be discharged home after meeting criteria. Anesthesia: Local Surgeon: Stacey Suarez Condition: stable Disposition: PACU
== END 2024-07-12 09:59 | disposition home or self-care (01) ==
LOC: SURGOUT 07:37
PROVIDERS: PCP Family Medicine; Visit Provider Anesthesiology Pain Medicine
DX: M17.12 Unilateral primary osteoarthritis, left knee (principal); M25.562 Pain in left knee
CPT/HCPCS: 36415; 64624; 85610; J0665; J1010

== ENCOUNTER 2024-07-28 00:19 | Outpatient (RCR) | payer MEDICARE, BC, SELFPAY | END 2024-08-26 15:21 | disposition home or self-care (01) | LOC: MM 00:19 | PROVIDERS: PCP Family Medicine; Visit Provider Internal Medicine | DX: Z51.81 Encounter for therapeutic drug level monitoring (principal); Z79.01 Long term (current) use of anticoagulants; I48.91 Unspecified atrial fibrillation | CPT/HCPCS: 85610; G0463 ==

== ENCOUNTER 2024-08-02 06:51 | Day surgery (SDC) | payer MEDICARE, BC, SELFPAY ==
[2024-08-02 07:18] VITALS: BP 132/85; PULSE 82; TEMP 36.3; O2SAT 97
[2024-08-02 07:30] LABS: INR 1.04
[2024-08-02 08:06] VITALS: BP 169/110; PULSE 74; O2SAT 95
[2024-08-02 08:24] VITALS: PULSE 69; O2SAT 95
[2024-08-02 08:25] VITALS: BP 172/83
[2024-08-02] MEDS: BUPIVACAINE HCL 0.25% PF 25 MG/10 ML VIAL 4 ML INJ (08:27)
[2024-08-02] MEDS: LIDOCAINE HCL 2% 400 MG/20 ML MDV 12 ML INJ (08:27)
[2024-08-02] MEDS: METHYLPREDNISOLONE ACETATE 40 MG/ML VIAL INJ (08:27)
--- NOTE | 2024-08-02 08:59 | W.PM.PROCNOT ---
Date of procedure: 08/02/24 Pre-op diagnosis: Right knee osteoarthritis Post-op diagnosis: same as pre-op Procedure: Right knee genicular nerve Radiofrequency ablation PreOp diagnosis: pain secondary to include knee osteoarthritis Postop diagnosis same Under fluoroscopic guidance Rhizotomy was created using radio frequency ablation at 80?C for 90 seconds 1 to 2 lesions created at each site. Post lesioning injection of 2 mL each of 0.25% Marcaine and 2% lidocaine with Depo-Medrol 40mg. 0.5 to 1 mL injected at each site Anesthesia local 2% lidocaine for local anesthetic Timeout process compliant After informed consent obtained.Patient brought to the procedure room placed in the supine position skin overlying the area was prepped and draped in a sterile fashion using betadine. 25 gauge needle was used to create a skin wheal over each of the targeted areas utilizing 2% lidocaine. A rhizotomy needle with a 10 mm active tip was inserted over each of the anesthetized areas and directed towards each of the genicular nerves accomplished under fluoroscopic guidance. after encountering the same we had positive sensory stimulation, negative motor stimulation was noted. lesions were then created. Post lesioning, steroid solution was injected needles removed. Patient was transferred to recovery room in stable condition to be discharged home after meeting criteria. Anesthesia: Local Surgeon: Stacey Suarez Condition: stable
== END 2024-08-02 08:34 | disposition home or self-care (01) ==
LOC: SURGOUT 06:51
PROVIDERS: PCP Family Medicine; Visit Provider Anesthesiology Pain Medicine
DX: M17.11 Unilateral primary osteoarthritis, right knee (principal)
CPT/HCPCS: 36415; 64624; 85610; J0665; J1010

== ENCOUNTER 2024-08-29 02:19 | Outpatient (RCR) | payer MEDICARE, BC, SELFPAY | END 2024-09-23 10:50 | disposition home or self-care (01) | LOC: MM 02:19 | PROVIDERS: PCP Family Medicine; Visit Provider Internal Medicine | DX: Z51.81 Encounter for therapeutic drug level monitoring (principal); Z79.01 Long term (current) use of anticoagulants; I48.91 Unspecified atrial fibrillation ==

== ENCOUNTER 2024-09-02 10:48 | Outpatient (OUT) | payer MEDICARE, BC, SELFPAY ==
--- NOTE | 2024-09-02 10:51 | XR_ITS ---
The [address] [address] Patient Name: MESFIN LOPEZ MRN: [id number] date: 1950 Sex: F Assigned Patient Location: [facility] Current Patient Location: Accession/Order Number: [id number] Exam Date: 09/02/2024 11:05 Report Date: 09/05/2024 08:35 At the request of: CASSANDRA KING Procedure: XR DEXA axial skeleton EXAMINATION: XR DEXA axial skeleton, 09/02/2024 11:05 AM EST HISTORY: Estrogen Deficiency COMPARISON: 2021 TECHNIQUE: Dual-energy X-ray absorptiometry (DEXA) bone density study performed for the axial skeleton. FINDINGS: Bone mineral density AP spine L1-L4 measures 1.08 g/sq cm. T score 0.2. Normal. Lowest bone mineral density left femoral trochanter measuring 0.562 g percent meters per. T score -2.5. Osteoporosis. XR/XR DEXA axial skeleton IMPRESSION: Osteoporosis. High fracture risk Pharmacologic treatment recommendations * No uniform recommendation applies to all patients. Management plans must be individualized. * Consider initiating pharmacologic treatment in postmenopausal women and men >= 50 years of age who have the following: Primary fracture prevention: * T-score <= - 2.5 at the femoral neck, total hip, lumbar spine, 33% radius (some uncertainty with existing data) by DXA. * Low bone mass (osteopenia: T-score between - 1.0 and - 2.5) at the femoral neck or total hip by DXA with a 10-year hip fracture risk >= 3% or a 10-year major osteoporosis-related fracture risk >= 20% (i.e., clinical vertebral, hip, forearm, or proximal humerus) based on the [place]-adapted FRAXregistered model. Secondary fracture prevention: * Fracture of the hip or vertebra regardless of BMD [4, 5]. * Fracture of proximal humerus, pelvis, or distal forearm in persons with low bone mass (osteopenia: T-score between - 1.0 and - 2.5). The decision to treat should be individualized in persons with a fracture of the proximal humerus, pelvis, or distal forearm who do not have osteopenia or low BMD [12, 13]. Rik MS, Evelyn SL, Sherry SOLANO, Heather EM, Kristin KG, Nixon AJ, Tawny ES. The clinician's guide to prevention and treatment of osteoporosis. Osteoporos Int. 2021;33(10):0775-2964. doi: 10.1007/h30199-900-81497-g. Epub 2021Nov 21. Erratum in: Osteoporos Int. 2021Feb 20;: PMID: [id number]; PMCID: [id number]. Electronically authenticated by: RADHA TRINIDAD Date: 09/05/2024 08:35
--- OUTSIDE RECORDS SUMMARY | 2024-09-02 11:09 | XMS_ITS | CCD ---
Author Organization [facility] Care Team Providers Care Java Web Application Developer Name Role Phone PHYSICIAN, DEFAULT Unavailable Unavailable PHYSICIAN, DEFAULT Unavailable Unavailable ALLRED, KELLER Unavailable Unavailable CHRISTINE, LEONAEN Unavailable Unavailable ALLRED, KELLER Unavailable Unavailable CHRISTINE, VENECIA Unavailable Unavailable CHRISTINE, DR TRUJILLO Primary Care [...] DR TRUJILLO Primary Care Unavailable LAKSHMIPATHY ., NARENDCARMENATH Attending Li vailable CHRISTINE, DR TRUJILLO Primary Care Unavailable FAWWAD, BERNSTEIN H Attending Unavailable FAWWAD, BERNSTEIN H Admitting Unavailable LAKSHMIPATHY ., NARENDRANATH Attending Li vailable LAKSHMIPATHY ., SCARLETENDRANATH Admitting Li vailable CHRISTINE, DR TRUJILLO Primary [...] Unavailable CHRISTINE, DR TRUJILLO Primary Care Unavailable CHRISTIEN, DR TRUJILLO Consulting Unavailable CHRISTINE, DR TRUJILLO [...] Li vailable CHRISTINE, VENECIA Berman Attending Unavailable HEMTRICIA PERALTA Attending Unavailable HEMTRICIA PERALTA Attending Unavailable CHRISTINEVENECIA Attending Unavailable CARLINE QUAN Attending Unavailable Charlotte Venecia GRECO Unavailable Venecia King MD Primary Care Provider [phone] Thursday Yandy SZYMANSKI Unavailable Allergies Allergy Classification Reported Allergen(s) Allergy Type Date of Onset Reaction(s) Facility (2 sources) Penicillins Drug allergy (disorder) 6 [facility] Repository (1 source) Penicillin; Translations: [PENICILLIN] Drug Allergy 4 [facility] Repository (5 sources) milnacipran Drug Allergy 3 Other [facility] (5 sources) Penicillin G Drug Allergy 3 Shortness of breath [facility] Medications Current Medications Medication Drug Class(es) Dates Sig (Normalized) Sig (Original) CALCIUM MAGNESIUM ZINC PO (5 sources) take 1 tablet by mouth once daily CALCIUM MAGNESIUM ZINC PO Take 1 tablet by mouth Daily Active carvedilol 12.5 mg oral tablet (5 sources) alpha-Adrenergic Nathaniel, beta-Adrenergic Nathaniel Start: 06-06-2024 carvedilol (Coreg) 12.5 MG tablet Indications: Essential hypertension (CMS/HCC) TAKE 1 TABLET TWICE DAILY WITH FOOD 200 tablet 3 06/06/2024 Active Start: 08-17-2023 carvedilol (Co reg) 12.5 MG tablet Indications: Essential hypertension (CMS/HCC) TAKE 1 TABLET TWICE DAILY WITH FOOD 180 tablet 3 08/17/2023 Active Chondroitin Sulfates / Glucosamine (5 sources) take 1 tablet by mouth once daily Glucosamine-Chondroitin (OSTEO BI-FLEX REGULAR STRENGTH PO) Take 1 tablet by mouth Daily Active 24 hr dilTIAZem hydrochloride 240 mg extended release oral capsule (5 sources) Calcium Channel Nathaniel Start: dilTIAZem CD (Cardizem CD) 2 40 MG 24 hr capsule Indications: Essential hypertension (CMS/HCC) TAKE 1 CAPSULE EVERY DAY 100 capsule 3 04/06/2024 Active Start: 02-23-2023 dilTIAZem CD ( Cardizem CD) 240 MG 24 hr capsule Indications: Essential hypertension (CMS/HCC) TAKE 1 CAPSULE EVERY DAY 100 capsule 3 02/23/2023 Active furosemide 20 mg oral tablet (5 sources) Loop Diuretic Start: 05-09-2024 furosemide (La six) 20 MG tablet Indications: Edema, unspecified type TAKE 1 TABLET TWICE DAILY 180 tablet 3 05/09/2024 Active Start: 07-21-2023 furosemide (La six) 20 MG tablet Indications: Edema, unspecified type TAKE 1 TABLET TWICE DAILY 180 tablet 3 07/21/2023 Active ibuprofen 800 mg oral tablet (5 sources) Nonsteroidal Anti-inflammatory Drug take 1 tablet by mouth every eight hours as needed for pain ibuprofen 800 MG tablet Take 800 mg by mouth every 8 (eight) hours if needed for moderate pain Active MAGNESIUM GLYCINATE ADVANCED PO (5 sources) take 1 tablet by mouth once daily MAGNESIUM GLYCINATE ADVANCED PO Take 1 tablet by mouth Daily Active meclizine hydrochloride 25 mg oral tablet (5 sources) Antiemetic take 1 tablet by mouth three times daily as needed for dizziness meclizine (Antivert) 25 MG tablet Take 25 mg by mouth 3 (three) times a day as needed for dizziness Active metaxalone 800 mg oral tablet (5 sources) Start: take 1 tablet by mouth at bedtime metaxalone (Skelaxin) 800 MG tablet Indications: Chronic low back pain without sciatica, unspecified back pain laterality TAKE 1 TABLET BY MOUTH IN THE MORNING, IN THE EVENING AND BEFORE BEDTIME 90 tablet 3 06/20/2024 Active Start: 10-20-2023 take 1 tablet by chacho th in the morning, then take 1 tablet by mouth in the evening, then take 1 tablet by mouth at bedtime metaxalone (Skelaxin) 800 MG tablet Indications: Chronic low back pain without sciatica, unspecified back pain laterality Take 1 tablet (800 mg) by mouth in the morning and 1 tablet (800 mg) in the evening and 1 tablet (800 mg) before bedtime. 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 30 tablet 11 11/10/2023 11/09/2024 Active microencapsulated potassium chloride 10 meq extended release oral tablet (5 sources) Start: 03-07-2024 take 1 tablet by mouth once daily potassium chloride CR (Klor-Con M10) 10 MEQ ER tablet Indications: Localized swelling of both lower legs Take 1 tablet (10 mEq) by mouth Daily Do not crush or chew. 90 tablet 3 03/07/2024 Active warfarin sodium 5 mg oral tablet (5 sources) Vitamin K Antagonist Start: 07-21-2024 warfarin (Coumadin) 5 MG tablet Indications: Longstanding persistent atrial fibrillation (CMS/HCC) TAKE 1 TABLET ONE TIME DAILY, EXCEPT TAKE 2 TABLETS ON SUNDAYS AND WEDNESDAYS 120 tablet 3 07/21/2024 Active Start: 10-02-2023 warfarin (Coum heath) 5 MG tablet Indications: Longstanding persistent atrial fibrillation (CMS/HCC) TAKE 1 TABLET ONE TIME DAILY, EXCEPT TAKE 2 TABLETS ON SUNDAYS AND WEDNESDAYS 120 tablet 3 10/02/2023 Active Problems Active Problems Problem Classification Problem Date Documented Date Episodic/Chronic Adjustment disorders (5 sources) Adjustment disorder in remission; Translations: [Adjustment disorder, unspecified] Onset: 02-23-2023 02-23-2023 Chronic Asthma (6 sources) Unspecified asthma, uncomplicated; Translations: [Asthmatic bronchitis] Onset: 12-18-2022 02-23-2023 Chronic Cardiac and circulatory congenital anomalies (6 sources) Atrial septal defect; Translations: [Atrial septal defect] Onset: 04-04-2024 04-04-2024 Chronic Cardiac dysrhythmias (14 sources) Unspecified atrial fibrillation; Translations: [Paroxysmal atrial fibrillation] Onset: 10-27-2022 Chronic Cardiac dysrhythmias (1 source) Cardiac dysrhythmias Onset: 02-08-2018 Coagulation and hemorrhagic disorders (5 sources) Thrombophilia; Translations: [Other thrombophilia] Onset: 03-07-2024 03-07-2024 Chronic Deficiency and other anemia (4 sources) Iron deficiency anemia secondary to blood loss (chronic); Translations: [IRON DEFIC ANEMIA SEC BLD LOSS CHRN] Onset: 05-22-2022 Chronic Deficiency and other anemia (5 sources) Iron deficiency anemia due to blood loss; Translations: [Iron deficiency anemia secondary to blood loss (chronic)] Onset: 02-23-2023 02-23-2023 Chronic Disorders of lipid metabolism (12 sources) Hyperlipidemia; Translations: [Hyperlipidemia, unspecified] Onset: 02-23-2023 02-23-2023 Chronic Essential hypertension (10 sources) Essential (primary) hypertension; Translations: [Essential hypertension] Onset: 12-18-2022 02-23-2023 Chronic Heart valve disorders (6 sources) Tricuspid incompetence, non-rheumatic ; Translations: [Nonrheumatic tricuspid (valve) insufficiency] Onset: 04-04-2024 04-04-2024 Chronic Menopausal disorders (11 sources) Other primary ovarian failure; Translations: [Decreased estrogen level] Onset: 01-08-2022 Chronic Mood disorders (5 sources) Depressive disorder; Translations: [Depressive disorder] Onset: 02-23-2023 02-23-2023 Chronic Osteoarthritis (20 sources) Unilateral primary osteoarthritis, right knee; Translations: [Bilateral primary osteoarthritis of knee] Onset: 12-06-2022 Resolved: 03-07-2024 Chronic Osteoporosis (5 sources) Osteoporosis; Translations: [Other osteoporosis without current pathological fracture] Onset: 02-23-2023 02-23-2023 Chronic Other aftercare (5 sources) Encounter for therapeutic drug level monitoring; Translations: [ENC THERAPEUTC DRUG LEVL MONITORING] Onset: 11-22-2022 Episodic Other aftercare (1 source) 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; Translations: [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] Onset: 12-24-2022 Episodic Other and ill-defined heart disease (6 sources) Bilateral enlargement of atria; Translations: [Cardiomegaly] Onset: 02-23-2023 04-04-2024 Chronic Other and ill-defined heart disease (1 source) Left atrial dilatation; Translations: [Cardiomegaly] Onset: 02-23-2023 02-23-2023 Chronic Other connective tissue disease (1 source) Fibromyalgia; [...] [PAIN IN RIGHT KNEE] Onset: 12-06-2022 Episodic Other nutritional; endocrine; and metabolic disorders (5 sources) Morbid obesity; Translations: [Morbid (severe) obesity due to excess calories] Onset: 02-23-2023 02-23-2023 Chronic Other nutritional; endocrine; and metabolic disorders (5 sources) Body mass index 40+ - severely obese; Translations: [Body mass index (BMI) 40.0-44.9, adult] Onset: 03-07-2024 03-07-2024 Chronic Pulmonary heart disease (2 sources) Pulmonary hypertension; Translations: [Pulmonary hypertension, unspecified] 04-04-2024 Chronic Residual codes; unclassified (1 source) Sleep apnea, unspecified; Translations: [SLEEP APNEA UNSPECIFIED] Onset: 12-18-2022 Chronic Residual codes; unclassified (5 sources) Obstructive sleep apnea syndrome; Translations: [Obstructive sleep apnea (adult) (pediatric)] Onset: 02-23-2023 02-23-2023 Chronic Unclassified (2 sources) Dyspnea, unspecified / R06.00(ICD-9) Onset: 02-08-2018 Unclassified (1 source) Tachycardia, unspecified / R00.0(ICD-9) Onset: 02-08-2018 Past or Other Problems Problem Classification Problem Date Documented Da te Episodic/Chronic Diabetes mellitus without complication (7 sources) Impaired glucose tolerance; Translations: [Impaired glucose tolerance (oral)] Onset: 02-23-2023 02-23-2023 Episodic Neoplasms of unspecified nature or uncertain behavior (5 sources) Neoplasm of uncertain behavior of skin of hand; Translations: [Neoplasm of uncertain behavior of skin] Onset: 03-07-2024 03-07-2024 Episodic Other bone disease and musculoskeletal deformities (1 source) Other specified disorders of bone density and structure, left thigh; Translations: [OTH D/O BONE DEN STRUCT LT THIGH] Onset: 01-23-2022 Episodic Other connective tissue disease (5 sources) Fibromyalgia; Translations: [Fibromyalgia] Onset: 02-23-2023 02-23-2023 Episodic Other connective tissue disease (5 sources) Muscle pain; Translations: [Myalgia, unspecified site] Onset: 02-23-2023 02-23-2023 Episodic Other ear and sense organ disorders (5 sources) Bilateral tinnitus; Translations: [Tinnitus, bilateral] Onset: 02-23-2023 02-23-2023 Episodic Other lower respiratory disease (5 sources) Dyspnea on exertion; Translations: [Other forms of dyspnea] Onset: 03-07-2024 03-07-2024 Episodic Other screening for suspected conditions (not mental disorders or infectious disease) (6 sources) Encounter for screening mammogram for malignant neoplasm of breast; Translations: [Patient encounter status] Onset: 01-23-2022 03-24-2023 Episodic Other skin disorders (5 sources) Bilateral localized swelling of lower legs; Translations: [Localized swelling, mass and lump, lower limb, bilateral] Onset: 03-07-2024 03-07-2024 Episodic Residual codes; unclassified (1 source) Family history of malignant neoplasm of breast; Translations: [FAMILY HX MALIG NEOPLASM OF BREAST] Onset: 01-23-2022 Episodic Unclassified (5 sources) Onset: 10-14-2023 10-14-2023 Results Test Name Value Interpretation Reference Range [facility] W/O COUMon 08-02-2024 PT Coag (PPP) [Time] 11 s [facility] INR 1.04 [facility] Comment on above: DESIRED INR: 2.0-3.0 CONDITIONS NOT LISTED BELOW 2.5-3.5 FOR PROSTHETIC HEART VALVE REPLACEMENT 2.5-3.5 [facility]UR[facility] PROTHROMBIN TIME INR W/O COUMon 07-12-2024 Interpretation and review of laboratory results Abnormal [facility] PT Coag (PPP) [Time] 13.3 s High [facility] INR 1.29 [facility] Comment on above: DESIRED INR: 2.0-3.0 CONDITIONS NOT LISTED BELOW 2.5-3.5 FOR PROSTHETIC HEART VALVE REPLACEMENT 2.5-3.5 [facility] Visiton 06-07-2024 Follow-up visit [id number] Leslie Lopez 1950 F Date Provider Department Center 06/07/2024 Mavis-CARLINE QUAN [facility] Family History Problem Relation Age of Onset No Known Problems Mother No Known Problems Father Family Status - Relation Status Age at Mother Father Level of Service:34760 [place] OFFICE/OUTPATIENT NEW MODERATE MDM 45 MINUTES Normal [facility] PROTIMEon 12-16-2022 INR Coag (PPP) [Relative time] 1.02 {INR} Normal [facility] Comment on above: Performed By: #### P T #### [facility] [address] [place] [address] Dr. Justyn Quintanilla INR GUIDELINES SEE BELOW Normal [facility] Comment on above: Result Comment: THAI RED INR: 2.0 - 3.0 CONDITIONS NOT LISTED BELOW 2.5 - 3.5 FOR PROSTHETIC HEART VALVE REPLACEMENT 2.5 - 3.5 RECURRENT THROMBOSIS Performed By: #### P T #### [facility] [address] [place] [address] Dr. Justyn Quintanilla PT Coag (PPP) [Time] 10.8 s Normal 9.0-11.6 [facility] Comment on above: Performed By: #### P T #### [facility] [address] [place] [address] Dr. Justyn Quintanilla CBC AUTO DIFFon 05-22-2022 BASO # 0.0 103/ul Normal 0.0-0.1 [facility] Comment on above: Performed By: #### C BC #### [facility] [address] [place] [address] Dr. Justyn Quintanilla Basophils/100 WBC (Bld) 0.5 % Normal 0.2-2.0 [facility] Comment on above: Performed By: #### C BC #### [facility] [address] [place] [address] Dr. Justyn Quintanilla EO # 0.1 103/ul Normal 0.0-0.7 [facility] Comment on above: Performed By: #### C BC #### [facility] [address] [place] [address] Dr. Justyn Quintanilla Eosinophils/100 WBC (Bld) 2.9 % Normal 0.9-7.0 [facility] Comment on above: Performed By: #### C BC #### [facility] [address] [place] [address] Dr. Justyn Quintanilla Erythrocyte distribution width (RBC) [Ratio] 20.7 % Critically high 11.0-15.0 [facility] Comment on above: Performed By: #### C BC #### [facility] [address] [place] [address] Dr. Justyn Quintanilla Hematocrit (Bld) [Volume fraction] 29.7 % Critically low 36.0-48.0 [facility] Comment on above: Performed By: #### C BC #### [facility] [address] [place] [address] Dr. Justyn Quintanilla Hemoglobin (Bld) [Mass/Vol] 9.0 g/dL Critically low 12.0-16.0 [facility] Comment on above: Performed By: #### C BC #### [facility] [address] [place] [address] Dr. Justyn Quintanilla IG # 0.01 10e3/ul Normal 0.00-0.03 [facility] Comment on above: Performed By: #### C BC #### [facility] [address] [place] [address] Dr. Justyn Quintanilla IG % 0.2 % Normal 0.0-0.5 [facility] Comment on above: Performed By: #### C BC #### [facility] [address] [place] [address] Dr. Justyn Quintanilla LYMPH # 1.2 103/ul Normal 1.2-3.8 [facility] Comment on above: Performed By: #### C BC #### [facility] [address] [place] [address] Dr. Justyn Quintanilla Lymphocytes/100 WBC (Bld) 29.0 % Normal 20.5-60.0 [facility] Comment on above: Performed By: #### C BC #### [facility] [address] [place] [address] Dr. Justyn Quintanilla MANUAL DIFF REQ NO Normal [facility] Comment on above: Performed By: #### C BC #### [facility] [address] [place] [address] Dr. Justyn Quintanilla MCH (RBC) [Entitic mass] 28.6 pg Normal 26.7-34.0 [facility] Comment on above: Performed By: #### C BC #### [facility] [address] [place] [address] Dr. Justyn Quintanilla MCHC (RBC) [Mass/Vol] 30.3 g/dL Normal 29.9-35.2 [facility] Comment on above: Performed By: #### C BC #### [facility] [address] [place] [address] Dr. Justyn Quintanilla MCV (RBC) [Entitic vol] 94.3 fL Normal 81.0-99.0 [facility] Comment on above: Performed By: #### C BC #### [facility] [address] [place] [address] Dr. Justyn Quintanilla MONO # 0.4 103/ul Normal 0.3-0.8 [facility] Comment on above: Performed By: #### C BC #### [facility] [address] [place] [address] Dr. Justyn Quintanilla Monocytes/100 WBC (Bld) 9.8 % Normal 1.7-12.0 [facility] Comment on above: Performed By: #### C BC #### [facility] [address] [place] [address] Dr. Justyn Quintanilla NEUT # 2.3 103/ul Normal 1.4-6.5 [facility] Comment on above: Performed By: #### C BC #### [facility] [address] [place] [address] Dr. Justyn Quintanilla Neutrophils/100 WBC (Bld) 57.6 % Normal 43.0-75.0 [facility] Comment on above: Performed By: #### C BC #### [facility] [address] [place] [address] Dr. Justyn Quintanilla Platelet mean volume (Bld) [Entitic vol] 9.2 fL Critically low 9.5-13.5 [facility] Comment on above: Performed By: #### C BC #### [facility] [address] [place] [address] Dr. Justyn Quintanilla PLT 361 103/ul Normal 150-450 [facility] Comment on above: Performed By: #### C BC #### [facility] [address] [place] [address] Dr. Justyn Quintanilla RBC 3.15 106/ul Critically low 4.20-5.40 [facility] Comment on above: Performed By: #### C BC #### [facility] [address] [place], [place] [address] Dr. Justyn Quintanilla WBC 4.1 103/ul Normal 4.0-11.0 [facility] Comment on above: Performed By: #### C BC #### [facility] [address] [place], [place] [address] Dr. Justyn Quintanilla MG MAMM SCREEN 3D JACQUELINE CADon 01-08-2022 MG MAMM SCREEN 3D JACQUELINE CAD Patient: LESLIE LOPEZ Exam Date: 01/08/2022 : 1950 Gender:F Ordering : DR VENECIA KING M.D. Admission #: [id number] Family : Order #: [id number] CLICK HERE TO VIEW EXAM RADIOLOGY REPORT [...] breast cancer at age 81. LOCATION: [facility] BREAST COMPOSITION: Scattered areas fibroglandular density. [...] Pro MD on 01/23/2022 at 08:05 Normal [facility] XR DEXA BONE DENSITYon 01-08 XR DEXA BONE DENSITY EXAMINATION: XR DEX A BONE DENSITY, 01/08/2022 10:20 AM EDT HISTORY: [...] by: CINTHYA PHAM Date: 2022-01-08 18:00 Normal [facility] Complete Blood Count with Au to Diffon 12-17-2021 Basophils (Bld) [#/Vol] 0.05 10*3/uL Normal 0.00-0.20 [facility] Comment on above: Performed By: #### V ITD, LIPD, smear, CBCAD, CMP #### [facility] [address], [place] [id number] Basophils/100 WBC (Bld) 1.3 % Normal [facility] [employer] Comment on above: Performed By: #### V ITD, LIPD, smear, CBCAD, CMP #### [facility] [address], [place] [id number] Eosinophils (Bld) [#/Vol] 0.08 10*3/uL Normal 0.02-0.50 [facility] Comment on above: Performed By: #### V ITD, LIPD, smear, CBCAD, CMP #### [facility] [address], [place] [id number] Eosinophils/100 WBC (Bld) 2.1 % Normal [facility] Comment on above: Performed By: #### V ITD, LIPD, smear, CBCAD, CMP #### [facility] [address], [place] [id number] Erythrocyte distribution width (RBC) [Ratio] 17.8 % High 11.0-15.0 [facility] Comment on above: Performed By: #### V ITD, LIPD, smear, CBCAD, CMP #### [facility] [address], [place] [id number] Hematocrit (Bld) [Volume fraction] 30.4 % Low 35.0-47.0 [facility] [employer] Comment on above: Performed By: #### V ITD, LIPD, smear, CBCAD, CMP #### [facility] [address], [place] [id number] Hemoglobin (Bld) [Mass/Vol] 8.7 g/dL Low 11.6-15.5 [facility] Comment on above: Performed By: #### V ITD, LIPD, smear, CBCAD, CMP #### [facility] [address], [place] [id number] Lymphocytes (Bld) [#/Vol] 1.0 10*3/uL Normal 0.9-3.9 [facility] Comment on above: Performed By: #### V ITD, LIPD, smear, CBCAD, CMP #### [facility] [address], [place] [id number] Lymphocytes/100 WBC (Bld) 25.1 % Normal [facility] Comment on above: Performed By: #### V ITD, LIPD, smear, CBCAD, CMP #### [facility] [address], [place] [id number] MCH (RBC) [Entitic mass] 21.1 pg Low 27.0-33.0 [facility] [employer] Comment on above: Performed By: #### V ITD, LIPD, smear, CBCAD, CMP #### [facility] [address], [place] [id number] MCHC (RBC) [Mass/Vol] 28.6 g/dL Low 32.0-36.0 [facility] Comment on above: Performed By: #### V ITD, LIPD, smear, CBCAD, CMP #### [facility] [address], [place] [id number] MCV (RBC) [Entitic vol] 74 fL Low 80-100 [facility] Comment on above: Performed By: #### V ITD, LIPD, smear, CBCAD, CMP #### [facility] [address], [place] [id number] Monocytes (Bld) [#/Vol] 0.4 10*3/uL Normal 0.2-0.9 [place] [facility] Comment on above: Performed By: #### V ITD, LIPD, smear, CBCAD, CMP #### [facility] [address], [place] [id number] Monocytes/100 WBC (Bld) 9.9 % Normal [facility] Comment on above: Performed By: #### V ITD, LIPD, smear, CBCAD, CMP #### [facility] [address], [place] [id number] Neutrophils (Bld) [#/Vol] 2.4 10*3/uL Normal 1.5-7.8 [facility] Comment on above: Performed By: #### V ITD, LIPD, smear, CBCAD, CMP #### [facility] [address], [place] [id number] Neutrophils/100 WBC (Bld) 61.3 % Normal [facility] Comment on above: Performed By: #### V ITD, LIPD, smear, CBCAD, CMP #### [facility] [address], [place] [id number] Platelet mean volume (Bld) [Entitic vol] 10.00 fL Normal 7.50-12.50 [facility] Comment on above: Performed By: #### V ITD, LIPD, smear, CBCAD, CMP #### [facility] [address], [place] [id number] Platelets (Bld) [#/Vol] 255 10*3/uL Normal 140-400 [facility] Comment on above: Performed By: #### V ITD, LIPD, smear, CBCAD, CMP #### [facility] [address], [place] [id number] RBC (Bld) [#/Vol] 4.13 10*6/uL Normal 3.90-5.20 [facility] Comment on above: Performed By: #### V ITD, LIPD, smear, CBCAD, CMP #### [facility] [address], [place] [id number] RDW-SD 46.7 fL Normal 37.0-50.0 [facility] Comment on above: Performed By: #### V ITD, LIPD, smear, CBCAD, CMP #### [facility] [address], [place] [id number] REFLEX Smear Review Normal [facility] Comment on above: Performed By: #### V ITD, LIPD, smear, CBCAD, CMP #### [facility] [address], [place] [id number] WBC (Bld) [#/Vol] 3.8 10*3/uL Normal 3.8-11.0 [facility] Comment on above: Performed By: #### V ITD, LIPD, smear, CBCAD, CMP #### [facility] [address], [place] [id number] Comprehensive Metabolic Pane [facility] 12-17-2021 Albumin [Mass/Vol] 4.1 g/dL Normal 3.6-5.1 [facility] Comment on above: Performed By: #### V ITD, LIPD, smear, CBCAD, CMP #### [facility] [address], [place] [id number] Albumin/Globulin [Mass ratio] 2.0 {ratio} Normal 1.0-2.5 [facility] Comment on above: Performed By: #### V ITD, LIPD, smear, CBCAD, CMP #### [facility] [address], [place] [id number] ALP [Catalytic activity/Vol] 85 U/L Normal 35-119 [facility] Comment on above: Performed By: #### V ITD, LIPD, smear, CBCAD, CMP #### [facility] [address], [place] [id number] ALT [Catalytic activity/Vol] 12 U/L Normal 6-33 [facility] Comment on above: Result Comment: 06/26 Female reference range changed. Performed By: #### V ITD, LIPD, smear, CBCAD, CMP #### [facility] [address], [place] [id number] Anion gap [Moles/Vol] 15 mmol/L Normal 12-20 [facility] Comment on above: Result Comment: Effe ctive 08/01/2019 reference range changed. Performed By: #### V ITD, LIPD, smear, CBCAD, CMP #### [facility] [address], [place] [id number] AST [Catalytic activity/Vol] 18 U/L Normal 9-34 [facility] Comment on above: Performed By: #### V ITD, LIPD, smear, CBCAD, CMP #### [facility] [address], [place] [id number] Bilirubin [Mass/Vol] 0.47 mg/dL Normal 0.30-1.20 [facility] Comment on above: Performed By: #### V ITD, LIPD, smear, CBCAD, CMP #### [facility] [address], [place] [id number] BUN/CREA 28 Ratio High 6-22 [facility] Comment on above: Performed By: #### V ITD, LIPD, smear, CBCAD, CMP #### [facility] [address], [place] [id number] Calcium [Mass/Vol] 9.3 mg/dL Normal 8.6-10.2 [facility] Comment on above: Performed By: #### V ITD, LIPD, smear, CBCAD, CMP #### [facility] [address], [place] [id number] Chloride [Moles/Vol] 103 mmol/L Normal 98-107 [facility] Comment on above: Performed By: #### V ITD, LIPD, smear, CBCAD, CMP #### [facility] [address], [place] [id number] CO2 [Moles/Vol] 27 mmol/L Normal 20-31 [facility] Comment on above: Performed By: #### V ITD, LIPD, smear, CBCAD, CMP #### [facility] [address], [place] [id number] Creatinine [Mass/Vol] 0.6 mg/dL Normal 0.6-1.4 [facility] Comment on above: Performed By: #### V ITD, LIPD, smear, CBCAD, CMP #### [facility] [address], [place] [id number] eGFRAA 122 mL/min/1.73m2 Normal >60 [place] [place] [employer] Comment on above: Performed By: #### V ITD, LIPD, smear, CBCAD, CMP #### [facility] [address], [place] [id number] eGFRNAA 101 mL/min/1.73m2 Normal >60 Ruddy chris [place] [facility] Comment on above: Performed By: #### V ITD, LIPD, smear, CBCAD, CMP #### [facility] [address], [place] [id number] Globulin (S) [Mass/Vol] 2.1 g/dL Normal 1.9-3.7 [facility] Comment on above: Performed By: #### V ITD, LIPD, smear, CBCAD, CMP #### [facility] [address], [place] [id number] Glucose [Mass/Vol] 100 mg/dL High 65-99 Rosette drummond [place] [facility] Comment on above: Result Comment: For FASTING Glucose --- ADA reference ranges: Normal 65-99 mg/dl Prediabetes 100-125 Diabetes >/= 126 Performed By: #### V ITD, LIPD, smear, CBCAD, CMP #### [facility] [address], [place] [id number] Potassium [Moles/Vol] 4.8 mmol/L Normal 3.5-5.5 [facility] Comment on above: Performed By: #### V ITD, LIPD, smear, CBCAD, CMP #### [facility] [address], [place] [id number] Protein [Mass/Vol] 6.2 g/dL Normal 6.1-8.1 Rosette drummond [place] [employer] Comment on above: Performed By: #### V ITD, LIPD, smear, CBCAD, CMP #### [facility] [address], [place] [id number] Sodium [Moles/Vol] 140 mmol/L Normal 135-146 Rosette rn [place] [facility] Comment on above: Performed By: #### V ITD, LIPD, smear, CBCAD, CMP #### [facility] [address], [place] [id number] Urea nitrogen [Mass/Vol] 16 mg/dL Normal 7-25 [facility] Comment on above: Performed By: #### V ITD, LIPD, smear, CBCAD, CMP #### [facility] [address], [place] [id number] Hemoglobin A1Con 12-17-2021 EAG 122.63 Normal [facility] Comment on above: Performed By: #### A 1C #### [facility] [address], [place] [id number] HbA1c (Bld) [Mass fraction] 5.9 % Normal 4.0-6.0 [facility] Comment on above: Performed By: #### A 1C #### [facility] [address], [place] [id number] Lipid Panelon 12-17-2021 Cholesterol [Mass/Vol] 178 mg/dL Normal 125-200 [facility] Comment on above: Result Comment: Low risk < 200mg/dL Borderline risk 201-239 mg/dl High risk > or equal to 240 Performed By: #### V ITD, LIPD, smear, CBCAD, CMP #### [facility] [address], [place] [id number] Cholesterol in HDL [Mass/Vol] 54 mg/dL Normal >40 [facility] Comment on above: Result Comment: High Cardiovascular Risk HDL <40 mg/dL Low Cardiovascular Risk HDL > or equal to 60 mg/dl Performed By: #### V ITD, LIPD, smear, CBCAD, CMP #### [facility] [address], [place] [id number] Cholesterol in LDL [Mass/Vol] 111 mg/dL Normal [facility] Comment on above: Result Comment: LDL ATP III CLASSIFICATION LDL less than 100 mg/dl Optimal LDL 100-129 mg/dl Near or above optimal LDL 130-159 Borderline high LDL 160-189 High LDL greater than 189 mg/dl Very High Performed By: #### V ITD, LIPD, smear, CBCAD, CMP #### [facility] [address], [place] [id number] Cholesterol in VLDL [Mass/Vol] 13 mg/dL Normal [facility] Comment on above: Performed By: #### V ITD, LIPD, smear, CBCAD, CMP #### [facility] [address], [place] [id number] Cholesterol.total/Ch olesterol in HDL [Mass ratio] 3 {ratio} Normal [facility] Comment on above: Performed By: #### V ITD, LIPD, smear, CBCAD, CMP #### [facility] [address], [place] [id number] Triglyceride [Mass/Vol] 67 mg/dL Normal 30-150 [facility] Comment on above: Result Comment: TRIG ATPIII CLASSIFICATIONS TRIG less than 150 mg/dl Normal TRIG 150-199 mg/dl Borderline High TRIG 200-500 mg/dl High TRIG greather than 500 mg/dl Very High Performed By: #### V ITD, LIPD, smear, CBCAD, CMP #### [facility] [address], [place] [id number] Smear Reviewon 12-17-2021 PLT EST Adequate Normal [facility] Comment on above: Performed By: #### V ITD, LIPD, smear, CBCAD, CMP #### [facility] [address], [place] [id number] RBC morphology finding Nom (Bld) RBC morphology review confirms RBC indices Normal [facility] Comment on above: Performed By: #### V ITD, LIPD, smear, CBCAD, CMP #### [facility] [address], [place] [id number] Vitamin D 25-OHon 12-17-2021 VIT D 25 OH 48 ng/ml Normal >29 [facility] Comment on above: Result Comment: Miladys min D Status Deficiency <20 ng/mL Insufficiency 20-29 ng/mL Optimal 30-100 ng/mL Possible Toxicity >=150 ng/mL Performed By: #### V ITD, LIPD, smear, CBCAD, CMP #### [facility] [address], [place] [id number] Vital Signs Date Time Vital Sign Value Performing Clinician [place] [facility] 04-04-2024 10:07-0400 Body height 165.1 cm Venecia King MD Work Phone: [facility] 04-04-2024 10:07-0400 Body mass index (BMI) [Ratio] 43.6 kg/m2 Venecia King MD Work Phone: [facility] 04-04-2024 10:07-0400 Body weight 118.84 kg Venecia King MD Work Phone: [facility] 04-04-2024 10:07-0400 Diastolic blood pressure 88 mm[Hg] Venecia King MD Work Phone: [facility] 04-04-2024 10:07-0400 Heart rate 90 /min Venecia King MD Work Phone: [facility] 04-04-2024 10:07-0400 SaO2% (BldA) [Mass fraction] 98 % Venecia King MD Work Phone: [facility] 04-04-2024 10:07-0400 Systolic blood pressure 120 mm[Hg] Venecia King MD Work Phone: [facility] Encounters Encounter Date Encounter Type Care Provider Facility Start: 08-02-2024 End: 08-02-2024 Clinisync Result Encounter Generic External Data Provider [facility] Unsolicited Start: 08-02-2024 End: 08-02-2024 Clinisync Result Encounter Generic External Data Provider [facility] Unsolicited Start: 07-12-2024 End: 07-12-2024 Clinisync Result Encounter Generic External Data Provider [facility] Department Unsolicited Start: 07-12-2024 End: 07-12-2024 Clinisync Result Encounter Generic External Data Provider [facility] Unsolicited Start: 06-07-2024 End: 06-07-2024 [facility] Start: 04-04-2024 End: 04-04-2024 Bamboo flowsheet Venecia King MD Work Phone: [facility] Start: 04-04-2024 End: 04-04-2024 Bamboo flowsheet Venecia King MD Work Phone: [facility] Start: 04-04-2024 End: 04-04-2024 Assay of hemosiderin, quant Venecia King MD Work Phone: [facility] Start: 04-04-2024 End: 04-04-2024 Patient encounter procedure Venecia King MD Work Phone: [facility] Comment on above: Routine general medi flor examination at [facility] care facility (Primary Dx); Abnormal glucose tolerance test; Benign essential hypertension ([facility]/HCC); Medicare annual wellness visit, subsequent; Paroxysmal atrial fibrillation (CMS/HCC); Elevated LDL cholesterol level ([facility]/HCC); Estrogen deficiency; Essential hypertension ([facility]/HCC); Pulmonary hypertension, unspecified ([facility]/HCC); Atrial septal defect; Nonrheumatic tricuspid valve regurgitation; Biatrial enlargement Start: 04-04-2024 End: 04-04-2024 ambulatory VENECIA Berman CHRISTINE Not Available Start: 03-07-2024 End: 03-07-2024 ambulatory TRICIA Berman HEMMER Not Available Start: 12-25-2023 End: 12-25-2023 ambulatory TRICIA Berman HEMKATHRYN Not Available Start: 12-18-2023 End: 12-18-2023 ambulatory VENECIA CHRISTINE Not Available Start: 10-20-2023 End: 10-20-2023 ambulatory VENECIA Berman CHRISTINE Not Available Start: 03-24-2023 End: 12-25-2023 Assay of hemosiderin, quant Venecia King MD Work Phone: [facility] Start: 01-01-2023 ambulatory NARENDRANATH LAKSHMIPATHY . Facility:[facility]1 Start: 12-16-2022 End: 12-16-2022 ambulatory [...] KING Facility:[facility]1 Start: 04-27-2022 End: 05-26-2022 ambulatory BERNSTEINYANN MARQUEZBENSON Facility:[facility]1 Start: 03-27-2022 End: 04-26-2022 ambulatory SHAIKH Mina ZAMANPATRIC Facility:[facility] Start: 03-18-2022 End: 03-25-[address] VENECIA KING Facility:[facility]1 Start: 02-24-2022 End: 03-26-2022 ambulatory SHAIKH Mina ZAMANPATRIC Facility:[facility] Start: 01-24-2022 End: 02-21-2022 ambulatory SHAIKH Mina ZAMANPATRIC Facility:[facility] Start: 01-08-2022 End: 01-09-[address] VENECIA KING Facility:[facility] Start: 02-09-2018 Patient encounter KRISHNA ALLRED Fac ility:[id number] Start: 02-08-2018 Patient encounter KRISHNA ALLRED Fac ility:[id number] Start: 02-08-2018 Patient encounter Facil [id number] Start: 11-27-2017 End: 11-28-2017 Ambulatory DEFAULT PHYSICIAN Facility:[facility] Procedures Date Procedure Procedure Detail Performing Clinician Start: 08-02-2024 [facility] PROTHROMBIN T CECY INR W/O COUM Generic External Data Provider Start: 07-12-2024 [facility] PROTHROMBIN T CECY INR W/O COUM Generic External Data Provider Start: 04-05-2024 Mammography Generic Pr ovider Start: 04-21-2023 Mammography Venecia King MD Work Phone: Plan of Treatment Date Care Activity Detail Author Start: 04-05-2025 Screening for malign ant neoplasm of breast Mammogram [facility] Start: 04-04-2025 Medicare Annual Well ness (AWV) Medicare Annual Wellness (AWV) [facility] Start: 12-31-2024 Screening for malign ant neoplasm of colon [facility] Start: 10-19-2024 Urine screening for protein Diabetes: Urine Protein Screening [facility] Start: 04-21-2024 Screening for malign ant neoplasm of breast Mammogram [facility] Start: 04-04-2024 End: 04-04-2025 CBC W Auto Differential panel - Blood CBC and differential Lab Routine Medicare annual wellness visit, subsequent Paroxysmal atrial fibrillation (CMS/HCC) Elevated LDL cholesterol level (CMS/HCC) Expected: 04/04/2024 (Approximate), Expires: 04/04/2025 [facility] Work Phone: Comment on above: Expected: 04/04/2024 (Approximate), Expires: 04/04/2025 Start: 04-04-2024 End: 04-04-2025 Comprehensive metabolic 2000 panel - Serum or Plasma Comprehensive metabolic panel Lab Routine Medicare annual wellness visit, subsequent Paroxysmal atrial fibrillation (CMS/HCC) Elevated LDL cholesterol level (CMS/HCC) Expected: 04/04/2024 (Approximate), Expires: 04/04/2025 [facility] Comment on above: Expected: 04/04/2024 (Approximate), Expires: 04/04/2025 Start: 04-04-2024 End: 04-04-2025 DXA Skeletal system Views for bone density DEXA bone density Imaging Routine Estrogen deficiency Expected: 04/04/2024, Expires: 04/04/2025 [facility] Comment on above: Expected: 04/04/2024 , Expires: 04/04/2025 Start: 04-04-2024 End: 04-04-2025 Lipid 1996 panel - Serum or Plasma Lipid panel Lab Routine Medicare annual wellness visit, subsequent Elevated LDL cholesterol level (CMS/HCC) Expected: 04/04/2024 (Approximate), Expires: 04/04/2025 [facility] Comment on above: Expected: 04/04/2024 (Approximate), Expires: 04/04/2025 Start: 04-04-2024 End: 04-04-2024 Patient encounter procedure 04/04/2024 10:30 AM EDT Office Visit [facility] [address] [place] [id number] Venecia King MD [address] [facility] [address] [place] [address] Arrived [facility] Comment on above: Arrived Start: 03-27-2024 Influenza vaccination Influenza Vacc ine (#1) [facility] Start: 03-24-2024 Medicare Annual Well ness (AWV) Medicare Annual Wellness (AWV) [facility] Start: 01-20-2024 Hemoglobin A1c measurement Diabetes: Hemoglobin A1C [facility] Start: [birth year]-06-1961 Glaucoma screening Diabetes: R etinopathy Screening [facility] Start: 1950 Screening for malign ant neoplasm of colon [facility] Immunizations Immunization Date Immunization Notes Care Provider Fa cility 05-18-2023 Influenza, Seasonal, Quadrivalent, Adjuvanted Venecia King MD Work Phone: [facility] 05-18-2023 influenza virus vacc ine, unspecified formulation Venecia King MD Work Phone: [facility] 06-11-2022 Influenza, Seasonal, Quadrivalent, Adjuvanted Venecia King MD Work Phone: [facility] 05-05-2021 influenza, high dose seasonal, preservative-free Venecia King MD Work Phone: [facility] 05-05-2021 Influenza, High-dose Seasonal, Quadrivalent, Preservative Free Venecia King MD Work Phone: [facility] 05-27-2020 Influenza, Seasonal, Quadrivalent, Adjuvanted Venecia King MD Work Phone: [facility] 05-10-2019 influenza, high dose seasonal, preservative-free Venecia King MD Work Phone: [facility] 05-10-2019 pneumococcal polysaccharide vaccine, 23 valent Venecia King MD Work Phone: [facility] 04-14-2019 pneumococcal polysaccharide vaccine, 23 valent Venecia King MD Work Phone: [facility] 04-14-2019 tetanus toxoid, redu bridgett diphtheria toxoid, and acellular pertussis vaccine, adsorbed Venecia King MD Work Phone: [facility] 03-22-2018 influenza, high dose seasonal, preservative-free Venecia King MD Work Phone: [facility] 03-22-2018 pneumococcal conjuga te vaccine, 13 valent Venecia King MD Work Phone: [facility] 06-03-2017 influenza, high dose seasonal, preservative-free Venecia King MD Work Phone: [facility] 07-08-2016 tetanus toxoid, redu bridgett diphtheria toxoid, and acellular pertussis vaccine, adsorbed Venecia King MD Work Phone: [facility] 05-29-2016 seasonal influenza, intradermal, preservative free Venecia King MD Work Phone: [facility] 05-08-2015 influenza, seasonal, injectable, preservative free Venecia King MD Work Phone: [facility] 10-05-2009 tetanus and diphther ia toxoids, adsorbed, preservative free, for adult use (2 Lf of tetanus toxoid and 2 Lf of diphtheria toxoid) Venecia King MD Work Phone: [facility] Payers Date Payer Category Payer [facility] [id number] 2016 Medicare [id number] 2016 Unknown 1959 Medicare [id number] 1959 Unknown [id number] 1950 Unknown [id number] 2.16.840.1.948449.3.579. 2.593 1951 Unknown [id number] 2.16.840.1.918041.3.579. 2.593 1951 Unknown [id number] 2.16.840.1.122290.3.579. 2.593 1951 Unknown [id number] 2.16.840.1.635669.3.579. 2.593 1951 Unknown [id number] 2.16.840.1.250280.3.579. 2.593 1951 Unknown [id number] 2.16.840.1.431639.3.579. 2.593 1951 Unknown [id number] 2.16.840.1.555825.3.579. 2.593 1951 Unknown [id number] 2.16.840.1.075420.3.579. 2.593 1951 Unknown [id number] 2.16.840.1.637556.3.579. 2.593 1951 Unknown [id number] 2.16.840.1.267493.3.579. 2.593 1951 Unknown [id number] 2.16.840.1.855148.3.579. 2.593 1951 Unknown [id number] 2.16.840.1.054983.3.579. 2.593 1951 Unknown [id number] 2.16.840.1.808017.3.579. 2.593 1951 Unknown [id number] 2.16.840.1.478594.3.579. 2.593 1951 Unknown [id number] 2.16.840.1.261701.3.579. 2.593 1951 Unknown [id number] 2.16.840.1.377559.3.579. 2.593 1951 Unknown [id number] 2.16.840.1.026316.3.579. 2.593 1951 Unknown [id number] 2.16.840.1.742128.3.579. 2.9 1951 Unknown [id number] 2.16.840.1.367397.3.579. 2.9 1951 Unknown [id number] 2.16.840.1.573500.3.579. 2.1258 1951 Unknown [id number] 2.16.840.1.711477.3.579. 2.9 1950 Unknown [id number] 2.16.840.1.498838.3.579. 2.1259 Medicare [id number] Social History Date Type Detail Facility Start: 03-24-2023 Tobacco smoking stat [facility] Never smoked tobacco [facility] Start: 03-24-2023 Tobacco use and exposure Smokeless tobacco non-user [facility] Start: 03-07-2024 End: 04-04-2024 Alcoholic beverage intake Lifetime non-drinker (finding) [facility] Start: 10-14-2023 End: 03-16-2024 History of Social function [facility] Work Phone: Start: 10-14-2023 End: 03-16-2024 [id number] Health Literacy [facility] Work Phone: How often do you nee d to have someone help you when you read instructions, pamphlets, or other written material from your doctor or pharmacy [SILS] Never [facility] Work Phone: Within the last year , have you been afraid of your partner or ex-partner? No [facility] Are you now , , , , never or living with a partner? Never [facility] How often to you hav e a drink containing alcohol? Never [facility] Do you feel stress - tense, restless, nervous, or anxious, or unable to sleep at night because your mind is troubled all the time - these days [OSQ] Not at all [facility] (I/We) worried wheth er (my/our) food would run out before (I/we) got money to buy more. Never true [facility] Start: 05-07-2023 Alcohol Comment caffeine: rafal olate, coffee,soda,tea [facility] Start: 1950 Sex assigned at Not on file [facility] Progress note 06-07-2024 Note Date & Type Note Facility 06-07-2024 Note [facility] Consult [facility] Reason for visit: Afib HPI: Leslie Lopez is a 73 y.o. year old with past medical history of hypertension, Obesity s/p gastric bypass atrial fibrillation has not been seen by tube splicer in the past. She presented to her PCP who thereafter referred to us for establishing care. Her initial diagnosis of A-fib occurred when she was in [place] and was seen in the hospital with food poisoning and was noted to have an EKG that revealed A-fib. Subsequently she was seen by tube splicer who placed her on Coumadin but cardioversion [...] she has s (more content not included)... [facility] Consultation note 12-02-2022 Note Date & Type [...] our patients to inform us about any uhgb-kzf-[id number] medications or herbal remedies/nutritional supplements/alternative remedies. 2. [...] options with their primary care provider. [facility] Evaluation note Note Date & Type Note Facility Evaluation note Diagnosis Routine general medical examination at health care facility- Primary Routine general medical examination at a health care facility Abnormal glucose tolerance test Impaired glucose tolerance test Benign essential hypertension (CMS/HCC) Essential hypertension, benign Medicare annual wellness visit, subsequent Paroxysmal atrial fibrillation (CMS/HCC) Atrial fibrillation Elevated LDL cholesterol level (CMS/HCC) Estrogen deficiency Other ovarian failure Essential hypertension (CMS/HCC) Unspecified essential hypertension Pulmonary hypertension, unspecified (CMS/HCC) Atrial septal defect Ostium secundum type atrial septal defect Nonrheumatic tricuspid valve regurgitation Biatrial enlargement documented in this encounter [facility] History of Present illness Narrative Venecia King MD - 04/04/2024 10:30 AM Bria King MD - 04/04/2024 10:27 AM Bria King MD - 04/04/2024 10:25 AM Bria King MD - 04/04/2024 10:16 AM EDT Note Date & Type Note Facility History of Present illness Narrative Images from the original note were not included. Subjective : Chief Complaint: Leslie Lopez is an 73 y.o. female here for an annual wellness visit. I have reviewed and reconciled the history and medication list with the patient today. Current Outpatient Medications Medication Sig Dispense Refill CALCIUM MAGNESIUM ZINC PO Take 1 tablet by mouth Daily carvedilol (Coreg) 12.5 MG tablet TAKE 1 TABLET TWICE DAILY WITH FOOD 180 tablet 3 dilTIAZem CD (Cardizem CD) 240 MG 24 hr capsule TAKE 1 CAPSULE EVERY DAY 100 capsule 3 furosemide (Lasix) 20 MG tablet TAKE 1 TABLET TWICE DAILY 180 tablet 3 Glucosamine-Chondroitin (OSTEO BI-FLEX REGULAR STRENGTH PO) Take 1 tablet by mouth Daily ibuprofen 800 MG tablet Take 800 mg by mouth every 8 (eight) hours if needed for moderate pain MAGNESIUM GLYCINATE ADVANCED PO Take 1 tablet by mouth Daily meclizine (Antivert) 25 MG tablet Take 25 mg by mouth 3 (three) times a day as needed for dizziness metaxalone (Skelaxin) 800 MG tablet Take 1 tablet (800 mg) by mouth in the morning and 1 tablet (800 mg) in the evening and 1 tablet (800 mg) before bedtime. 300 tablet 0 metFORMIN (Glucophage) 500 MG tablet TAKE 1 TABLET EVERY MORNING WITH A MEAL 100 tablet 3 Misc Natural Products (OSTEO BI-FLEX ADV TRIPLE ST PO) Take 1 tablet by mouth Daily PARoxetine (Paxil) 20 MG tablet Take 1 tablet (20 mg) by mouth in the morning. 30 tablet 11 potassium chloride CR (Klor-Con M10) 10 MEQ ER tablet Take 1 tablet (10 mEq) by mouth Daily Do not crush or chew. 90 tablet 3 warfarin (Coumadin) 5 MG tablet TAKE 1 TABLET ONE TIME DAILY, EXCEPT TAKE 2 TABLETS ON SUNDAYS AND WEDNESDAYS 120 tablet 3 No current facility-administered medications for this visit. Review of Systems Constitutional: Negative for chills, fatigue, fever and unexpected weight change. Respiratory: Negative for cough. Cardiovascular: Negative for chest pain. Gastrointestinal: Negative for abdominal pain, blood in stool, constipation, diarrhea, nausea and vomiting. Genitourinary: Negative for dysuria, enuresis, frequency and hematuria. Musculoskeletal: Negative for back pain. Neurological: Negative for dizziness, tremors, syncope, facial asymmetry and speech difficulty. Psychiatric/Behavioral: Negative for agitation, behavioral problems, confusion and dysphoric mood. The patient is not nervous/anxious. List of current healthcare providers: Patient Care Team: Venecia King MD as PCP - General (Family Medicine) Venecia King MD as PCP - [facility] Yandythursday, WAFER SLICER as Licensed Practical Nurse (Family Medicine) Medicare Annual Visit Over the past 2 weeks, how often have you been bothered by any of the following problems? Little interest or pleasure in doing things: Not at all Feeling down, depressed, or hopeless: Not at all Patient Health Questionnaire-2 Score: 0 Barrera Fall Risk History of Falling, Immediate or Within 3 Months: No Health Risk Assessment Form Do you need help eating, bathing, using the toilet, dressing, or getting around your home?: No Can you prepare your own meals?: Yes Can you do your own housework without help?: Yes Can you shop for groceries or clothes without help?: Yes Do you exercise for about 20 minutes 3 or more days a week?: Yes How confident are you that you can control and manage most of your health problems?: Very confident Can you mange your money, credit cards and accounts, pay bills and taxes?: Yes Vision Screening: Yes, no gross abnormalities Hearing Screening: Yes, no gross abnormalities Cognitive Screening Self Assessment: No overt cognitive deficiency is apparent by direct observation Three Word Registration: Apple, Watch, Tabitha Clock Drawing: Normal Clock - 2 Three Word Recall: All 3 words correct - 3 Total Score (0-5 Points): 5 Pain Assessment Pain Score: 7 Objective : BP 120/88 Pulse 90 Ht 5' 5 Wt 262 lb SpO2 98% BMI 43.60 kg/m No results found. Physical Exam Constitutional: General: She is not in acute distress. Appearance: Normal appearance. She is obese. HENT: Head: Normocephalic. Neck: Vascular: No carotid bruit. Cardiovascular: Rate and Rhythm: Normal rate and regular rhythm. Pulmonary: Effort: Pulmonary effort is normal. No respiratory distress. Breath sounds: Normal breath sounds. Neurological: General: No focal deficit present. Mental Status: She is alert and oriented to person, place, and time. Psychiatric: Mood and Affect: Mood normal. Assessment/Plan : The following health maintenance schedule was reviewed with the patient and provided in printed form in the after visit summary: Health Maintenance Topic Date Due Diabetes: Retinopathy Screening Never done Diabetes: Hemoglobin A1C 01/20/2024 Influenza Vaccine (1) 03/27/2024 Mammogram 04/21/2024 Colorectal Cancer Screening 12/31/2024 Diabetes: Urine Protein Screening 10/19/2024 Medicare Annual Wellness (AWV) 04/04/2025 Pneumococcal Vaccine: 65+ Years Completed Advance Care Planning Patient willing to discuss ACP. If in place, renew periodically. If not in place, recommend obtaining ACP. Assessment/Plan Problem List Items Addressed This Visit Atrial fibrillation (CMS/HCC) Relevant Orders CBC and differential Comprehensive metabolic panel Essential hypertension (CMS/HCC) Our specific goals, for your hypertension, is to keep your blood pressure less than 140/90, and the importance of weight control. We made recommendations on how to control your blood pressure, and minimize your risk of these copmplications. We also discussed your current barriers to a healthy living and importance of healthy diet and exercise. Prior to your visit today we have reviewed your chart and formed a plan to assist with providing you the best possible care. We reviewed the possible complications of hypertension including, stroke, heart failure and kidney impairment. In addition, we discussed your medications, the importance of taking them as prescribed. DASH diet handouts Biatrial enlargement Sees Cardiology Probably one of the causes of atrial fibrillation Medicare annual wellness visit, subsequent Colonoscopy every 10 years or Cologuard every 3 years ages 50-75 Flu Vaccine yearly Pneumovax and Prevnar Mammo yearly for women and PSA yearly for men Labs/Screening yearly to rule out Diabetes, Chronic Kidney disease and liver disease Hepatitis Screen forat risk populations Shingles vaccine after 65 if indicated Tetanus Vaccine every 10 years Lipids yearly under the age of 75 If Smoking history: one time CT scan of chest and Ultrasound of Aorta to screen for Anuerysm Relevant Orders CBC and differential Comprehensive metabolic panel Lipid panel Elevated LDL cholesterol level (CMS/HCC) Relevant Orders CBC and differential Comprehensive metabolic panel Lipid panel Atrial septal defect See Field Contractor in end of March Nonrheumatic tricuspid valve regurgitation Other Visit Diagnoses Routine general medical examination at health care facility - Primary Abnormal glucose tolerance test Benign essential hypertension (CMS/HCC) Estrogen deficiency Relevant Orders DEXA bone density Pulmonary hypertension, unspecified (CMS/HCC) Orders Placed This Encounter Procedures DEXA bone density Standing Status: Future Standing Expiration Date: 04/04/2025 Order Specific Question: Reason for exam: Answer: screening CBC and differential Standing Status: Future Number of Occurrences: 1 Standing Expiration Date: 04/04/2025 Order Specific Question: Print requisition? Answer: No Comprehensive metabolic panel Standing Status: Future Number of Occurrences: 1 Standing Expiration Date: 04/04/2025 Order Specific Question: Print requisition? Answer: No Lipid panel Standing Status: Future Number of Occurrences: 1 Standing Expiration Date: 04/04/2025 Electronically signed by Venecia King MD on April 04, 2024 Associated Problem(s): Biatrial enlargement Sees Cardiology Probably one of the causes of atrial fibrillation Associated Problem(s): Atrial septal defect See Field Contractor in end of March Associated Problem(s): Medicare annual wellness visit, subsequent Colonoscopy every 10 years or Cologuard every 3 years ages 50-75 Flu Vaccine yearly Pneumovax and Prevnar Mammo yearly for women and PSA yearly for men Labs/Screening yearly to rule out Diabetes, Chronic Kidney disease and liver disease Hepatitis Screen forat risk populations Shingles vaccine after 65 if indicated Tetanus Vaccine every 10 years Lipids yearly under the age of 75 If Smoking history: one time CT scan of chest and Ultrasound of Aorta to screen for Anuerysm Associated Problem(s): Essential hypertension (CMS/HCC) Our specific goals, for your hypertension, is to keep your blood pressure less than 140/90, and the importance of weight control. We made recommendations on how to control your blood pressure, and minimize your risk of these copmplications. We also discussed your current barriers to a healthy living and importance of healthy diet and exercise. Prior to your visit today we have reviewed your chart and formed a plan to assist with providing you the best possible care. We reviewed the possible complications of hypertension including, stroke, heart failure and kidney impairment. In addition, we discussed your medications, the importance of taking them as prescribed. DASH diet handouts documented in this encounter [facility] Summary Purpose Family History No Family History [...] and content) DATE CREATED AUTHOR 01/14/2018 [facility] DATE CREATED AUTHOR AUTHOR'S ORGANIZ ATION 02/11/2018 [facility] DATE CREATED AUTHOR AUTHOR'S ORGANIZ ATION 02/11/2018 [facility] DATE CREATED AUTHOR AUTHOR'S ORGANIZ ATION 12/18/2021 [facility] dical Specialist DATE CREATED AUTHOR AUTHOR'S ORGANIZ ATION 01/02/2023 [facility]ital DATE CREATED AUTHOR AUTHOR'S ORGANIZ ATION 04/05/2024 [facility] dical Specialists EPIC DATE CREATED AUTHOR AUTHOR'S ORGANIZ ATION 06/19/2024 [facility] Care Teams (unrecognized sec tion and content) Java Web Application Developer Relationship Specialty Start Date End Date Venecia King MD [address] [place] [address] PCP - ACO Reach 12/18/22 Venecia King MD [address] [place] [address] PCP - General Family Medicine 12/02/22Thursday, NESSA Kebede [address] [place] [address] Licensed Practical Nurse Family Medicine 10/12/23 Java Web Application Developer Relationship Specialty Start Date End Date Venecia King MD [address] [place] [address] PCP - ACO Reach 12/18/22 Venecia King MD [address] [place] [address] PCP - General Family Medicine 12/02/22Thursday, SETH KebedeN [address] [place] [address] Licensed Practical Nurse Family Medicine 10/12/23 Java Web Application Developer Relationship Specialty Start Date End Date Venecia King MD [address] [place] [address] PCP - ACO Reach 12/18/22 Venecia King MD [address] [place] [address] PCP - General Family Medicine 12/02/22Thursday, NESSA Kebede [address] [place] [address] Licensed Practical Nurse Family Medicine 10/12/23 Reason for Visit (unrecogniz ed section and content) Reason Comments Medicare Annual Wellness Visit Subsequen t FOR RECORDS PERTAINING TO PATIENTS WHO ARE [...] BE BASED ON THE PRIMARY CLINICAL RECORDS. [facility]. provides no warranty or guarantee of the accuracy or completeness of information in this document.
== END 2024-09-02 10:49 | disposition home or self-care (01) ==
LOC: RAD 10:48
PROVIDERS: PCP Family Medicine; Visit Provider Family Medicine
DX: E28.39 Other primary ovarian failure (principal); M81.8 Other osteoporosis without current pathological fracture
CPT/HCPCS: 77080

== ENCOUNTER 2024-09-21 12:21 | Outpatient (OUT) | payer MEDICARE, BC, SELFPAY ==
--- NOTE | 2024-09-15 12:41 | P.CN_ITS ---
Consult Note: HPI Data of Consult Patient: known to practice within the last 3 years Requesting Physician: Perla Oreilly NP Primary Care Provider: CASSANDRA KING Consult Narrative Reason for consult: f/u Narrative: Leslie Mathis a pleasant 73 year old female presents for evaluation and management of chronic bilateral knee. Patient reports a history of fibromyalgia as well. Today rating pain 0/10 up to 8/10 in bilateral knees. Patient is on warfarin and is advised not to take NSAIDs, however she continues to use aleve advil and motrin PRN but has her INR and PT checked. Patient previously reported benefit to duloxetine 90mgs daily but is no longer on it, taking paxil 20mg daily, hx of failure to respond to steroid and durolane injections, recently underwent bilateral genicular nerve block with 100% improvement while anesthetized. cc:: CC: Perla Oreilly NP Review of Systems ROS Status of ROS 10 or more systems reviewed and unremark able except as noted in history and below Musculoskeletal Reports: joint pain PFSH PFSH Medical History (Updated 07/26/24 @ 14:31 by Dafne Lang) Osteoarthritis ?M19.90 - Unspecified osteoarthritis, unspecified site (ICD-10) Anemia ?D64.9 - Anemia, unspecified (ICD-10) Active asthma ?J45.909 - Unspecified asthma, uncomplicated (ICD-10) Heart valve disease ?I38 - Endocarditis, valve unspecified (ICD-10) Hypertension ?I10 - Essential (primary) hypertension (ICD-10) Irregular heart beat ?I49.9 - Cardiac arrhythmia, unspecified (ICD-10) Surgical History (Updated 07/26/24 @ 14:31 by Dafne Lang) S/P gastric bypass ?Z98.84 - Bariatric surgery status (ICD-10) S/P cholecystectomy ?Z90.49 - Acquired absence of other specified parts of digestive tract (ICD- 10) H/O: hysterectomy ?Z90.710 - Acquired absence of both cervix and uterus (ICD-10) Family History (Updated 07/26/24 @ 14:30 by Dafne Lang) Other Fibromyalgia Social History Smoking status: Never smoker Meds Home Medications and Allergies Home Medications ?Medication ?Instructions ?Recorded ?Confirmed ?Type ascorbic acid (vitamin C) 500 mg 500 mg PO DAILY 01/01/23 08/02/24 History tablet calcium 100 mg capsule mg PO 01/01/23 History carvedilol 12.5 mg tablet 12.5 mg PO BID 01/01/23 08/02/24 History diltiazem HCl 240 mg capsule,24 240 mg PO DAILY 01/01/23 08/02/24 History hr,extended release ferrous sulfate 325 mg (65 mg 325 mg PO DAILY 01/01/23 08/02/24 History iron) tablet (iron) furosemide 20 mg tablet (Lasix) 20 mg PO BID 01/01/23 08/02/24 History ibuprofen 800 mg tablet 800 mg PO QDAY 01/01/23 08/02/24 History metaxalone 800 mg tablet 800 mg PO TID 01/01/23 08/02/24 History metformin 500 mg tablet 500 mg PO DAILY 01/01/23 08/02/24 History warfarin 5 mg tablet 5 mg PO DAILY 01/01/23 08/02/24 History duloxetine 30 mg capsule,delayed 30 mg PO .AM 07/16/23 08/02/24 History release (Cymbalta) duloxetine 60 mg capsule,delayed 60 mg PO .hs #90 caps 08/06/23 08/02/24 Rx release meclizine 25 mg tablet 25 mg PO TID PRN dizziness #20 tabs 08/15/23 08/02/24 Rx pregabalin 50 mg capsule (Lyrica) 50 mg PO BID #60 caps 04/14/24 08/02/24 Rx acetaminophen 300 mg-codeine 30 mg 1 tab PO DAILY PRN pain #7 tabs 06/29/24 08/02/24 Rx tablet Allergies Allergy/AdvReac Type Severity Reaction Status Date / Time Penicillins Allergy resp Verified 07/12/24 08:28 distress Exam Narrative Exam Narrative: generalized myofascial pain on exam Constitutional Documenting provider has reviewed patient's vital signs: yes Common normals: no apparent distress, oriented x3, healthy appearing, alert and well nourished General appearance: cooperative HENMT Common normals: normocephalic, hearing grossly normal bilaterally and moist oral mucous membranes Head and scalp: normocephalic Eye Common normals: PERRL Pupil: PERRL Neck & C-Spine Common normals: full ROM General: normal visual inspection Chest Common normals: inspection of chest normal Respiratory Common normals: normal respiratory effort, no retractions and no use of access ory muscles Back & Pelvis Thoracic spine/upper back: normal to inspection and thoracic ROM normal Lumbar spine/lower back: normal to inspection, pain with ROM and straight leg raise negative bilaterally Sacroiliac joints: SI joints normal Other: positive bilateral facet loading Extremity Common normals: no calf tenderness and no pedal edema Right lower extremity: knee joint (enlarged, pain with weight bearing, limited ROM, weakness) Left lower extremity: knee joint (enlarged, pain with weight bearing, limited ROM, weakness) Neuro Common normals: oriented x3, CN's II-XII intact bilaterally, moves all extremities, no focal motor deficits, no sensory deficits noted and deep tendon reflexes 2+ bilaterally Sensorium/orientation: alert Motor exam: strength 5/5 throughout and no movement abnormalities noted Psych Common normals: mental status grossly normal, thought process normal, cooperative, affect normal, speech normal and activity/motor behavior normal Speech: normal speech Thought process: normal thought process Results Additional Findings Additional findings: If on a controlled substance or opioids, I have checked an [place]AR[place] report on this patient and there are no aberrancies noted in the prescribing history.??If on a controlled substance or opioid a drug screen was completed and reviewed within the last year, and if there has not been a drug screen completed we ordered one today to monitor higher risk, state monitored pain medication use. As part of providing excellent, safe, comprehensive care, the following was completed at our patient's visit: 1. A medication reconciliation and review to ensure accurate knowledge of current/active medications, including asking our patients to inform us about any [id number] medications or herbal remedies/nutritional supplements/alternative remedies. 2. A review to specifically ensure our patients have had annual screening for screening for depression, screening for tobacco use, and screening for unhealthy alcohol use. For concerning screenings had a discussion with the patient, provided patient education, and recommended follow-up with primary care provider when appropriate. If patient noted with a risk of falling, they received education on strength, gait, and balance training to prevent future risk of falling. Assessment and Plan Assessment and Plan (1) Knee osteoarthritis: (2) Fibromyalgia: (3) Chronic pain syndrome: (4) Generalized OA: (5) Muscle spasm: Plan pt would like to repeat left then right genicular RFAs under fluoroscopy, previous injections provided >50% improvement greater than 6 months continue pregabalin 50mg BID UDS today, start tylenol #3 for severe OA pain unresponsive to tylenol and NSAIDs. pt should not be taking nsaids while on warfarin but continues to u tilize ibuprofen PRN. risks vs benefits reviewed. 7 tabs for 1 week trial. pt to call for refill in the future will provide 10 tabs/month if needed f/u after completion of genicular RFAs
--- OUTSIDE RECORDS SUMMARY | 2024-09-21 12:35 | XMS_ITS | CCD ---
Author Organization [facility] Care Team Providers Care Timber Hewer Name Role Phone PHYSICIAN, DEFAULT Unavailable Unavailable [...] ., SCARLETENDCARMENATH Consulting Li vailable CHRISTINE, DR TRUJLILO Primary Care Unavailable LAKSHMIPATHY ., NARENDCARMENATH Attending [...] CHRISTINE, DR TRUJILLO Primary Care Unavailable FAWWAAngel, H Admitting Unavailable CHRISTINE, DR TRUJILLO Primary [...] vailable LAKSHMIPATHY ., NARENDRANATH Attending Li vailable CARLINE QUAN Attending Unavailable [address] Venecia GRECO Unavailable Venecia King MD Primary Care Provider [phone] Thursday Yandy SZYMANSKI Unavailable Estefani Osman RN Unavailable IGNACIA FELIPE Attending Unavailable VENECIA KING Attending Unavailable IGNACIA FELIPE Attending Unavailable IGNACIA FELIPE Attending Unavailable CHRISTINEVENECIA Attending Unavailable Allergies Allergy Classification Reported Allergen(s) Allergy Type Date of Onset Reaction(s) Facility (2 sources) Penicillins Drug allergy (disorder) 6 [facility] (1 source) Penicillin; Translations: [PENICILLIN] Drug Allergy 4 [facility] Repository (9 sources) milnacipran Drug Allergy 3 Other [facility] (9 sources) Penicillin G Drug Allergy 3 Shortness of breath [facility] Healthcare Medications Current Medications Medication Drug Class(es) Dates Sig (Normalized) Sig (Original) amiodarone hydrochloride 200 mg oral tablet (3 sources) Antiarrhythmic Start: 08-16-2024 take 1 tablet by mouth once daily amiodarone (Pacerone) 200 MG tablet Take 200 mg by mouth Daily 08/16/2024 Active CALCIUM MAGNESIUM ZINC PO (9 sources) take 1 tablet by mouth once daily CALCIUM MAGNESIUM ZINC PO Take 1 tablet by mouth Daily Active carvedilol 12.5 mg oral tablet (9 sources) alpha-Adrenergic Nathaniel, beta-Adrenergic Nathaniel Start: 06-06-2024 carvedilol (Coreg) 12.5 MG tablet Indications: Essential hypertension (CMS/HCC) TAKE 1 TABLET TWICE DAILY WITH FOOD 200 tablet 3 06/06/2024 Active Start: 08-17-2023 carvedilol (Co reg) 12.5 MG tablet Indications: Essential hypertension (CMS/HCC) TAKE 1 TABLET TWICE DAILY WITH FOOD 180 tablet 3 08/17/2023 Active Chondroitin Sulfates / Glucosamine (9 sources) take 1 tablet by mouth once daily Glucosamine-Chondroitin (OSTEO BI-FLEX REGULAR STRENGTH PO) Take 1 tablet by mouth Daily Active 1 ml denosumab 60 mg/ml prefilled syringe (2 sources) RANK Ligand Inhibitor Start: 2024 inject 1 mL by subcutaneous injection once denosumab (Prolia) 60 MG/ML solution prefilled syringe Indications: Age-related osteoporosis without current pathological fracture (CMS/HCC) Inject 1 mL (60 mg) under the skin 1 (one) time for 1 dose 09/09/2024 Active Start: 09-09-2024 inject 1 mL by subcu taneous injection once denosumab (Prolia) 60 MG/ML solution prefilled syringe Indications: Age-related osteoporosis without current pathological fracture (CMS/HCC) Inject 1 mL (60 mg) under the skin 1 (one) time for 1 dose 09/09/2024 Active 24 hr dilTIAZem hydrochloride 240 mg extended release oral capsule (9 sources) Calcium Channel Nathaniel Start: 04-06-2024 dilTIAZem CD (Cardiz em CD) 240 MG 24 hr capsule Indications: Essential hypertension (CMS/HCC) TAKE 1 CAPSULE EVERY DAY 100 capsule 3 04/06/2024 Active Start: 02-23-2023 dilTIAZem CD ( Cardizem CD) 240 MG 24 hr capsule Indications: Essential hypertension (CMS/HCC) TAKE 1 CAPSULE EVERY DAY 100 capsule 3 02/23/2023 Active furosemide 20 mg oral tablet (9 sources) Loop Diuretic Start: 05-09-2024 furosemide (La six) 20 MG tablet Indications: Edema, unspecified type TAKE 1 TABLET TWICE DAILY 180 tablet 3 05/09/2024 Active Start: 07-21-2023 furosemide (La six) 20 MG tablet Indications: Edema, unspecified type TAKE 1 TABLET TWICE DAILY 180 tablet 3 07/21/2023 Active ibuprofen 800 mg oral tablet (9 sources) Nonsteroidal Anti-inflammatory Drug take 1 tablet by mouth every eight hours as needed for pain ibuprofen 800 MG tablet Take 800 mg by mouth every 8 (eight) hours if needed for moderate pain Active MAGNESIUM GLYCINATE ADVANCED PO (9 sources) take 1 tablet by mouth once daily MAGNESIUM GLYCINATE ADVANCED PO Take 1 tablet by mouth Daily Active meclizine hydrochloride 25 mg oral tablet (9 sources) Antiemetic take 1 tablet by mouth three times daily as needed for dizziness meclizine (Antivert) 25 MG tablet Take 25 mg by mouth 3 (three) times a day as needed for dizziness Active metaxalone 800 mg oral tablet (9 sources) Start: take 1 tablet by mouth [...] Active metFORMIN hydrochloride 500 mg oral tablet (9 sources) Biguanide Start: 03-23-2024 End: 09-09-2024 metFORMIN (Glucophage) 500 MG tablet Indications: Type 2 diabetes mellitus without complication, 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 (CMS/HCC) TAKE 1 TABLET EVERY MORNING WITH A MEAL 100 tablet 3 03/23/2024 09/09/2024 Discontinued (Ineffective) Misc Natural Products (OSTEO BI-FLEX ADV TRIPLE ST PO) (9 sources) End: 09-09-2024 take 1 tablet by mouth once daily Misc Natural Products (OSTEO BI-FLEX ADV TRIPLE ST PO) Take 1 tablet by mouth Daily 09/09/2024 Discontinued (Duplicate order) take 1 tablet by mouth once betty y Misc Natural Products (OSTEO BI-FLEX ADV TRIPLE ST PO) Take 1 tablet by mouth Daily Active PARoxetine hydrochloride 20 mg oral tablet (9 sources) Serotonin Reuptake Inhibitor Start: 11-10-2023 End: 11-09-2024 PARoxetine (Paxil) 20 MG tablet Indications: Depressive disorder (CMS/HCC) TAKE 1 TABLET EVERY MORNING 90 tablet 3 08/31/2024 Active microencapsulated potassium chloride 10 meq extended release oral tablet (9 sources) Start: 03-07-2024 take 1 tablet by mouth once daily potassium chloride CR (Klor-Con M10) 10 MEQ ER tablet Indications: Localized swelling of both lower legs Take 1 tablet (10 mEq) by mouth Daily Do not crush or chew. 90 tablet 3 03/07/2024 Active pregabalin 50 mg oral capsule (3 sources) Start: 08-12-2024 take 1 capsule by mouth in the morning pregabalin (Lyrica) 50 MG capsule Take 50 mg by mouth in the morning and 50 mg before bedtime. 08/12/2024 Active rivaroxaban 20 mg oral tablet (3 sources) Factor Xa Inhibitor Start: 06-07-2024 End: 09-09-2024 take 1 tablet by mouth at mealtime rivaroxaban (Xarelto) 20 MG tablet Take 20 mg by mouth in the evening. Take with meals 06/07/2024 09/09/2024 Discontinued (Other) Semaglutide-Weight Management 0.25 MG/0.5ML solution auto-injector (2 sources) Start: 09-09-2024 inject 0.25 mg by subcutaneous injection every week Semaglutide-Weig ht Management 0.25 MG/0.5ML solution auto-injector Indications: Morbid (severe) obesity due to excess calories (CMS/HCC) , Body mass index (BMI) 40.0-44.9, adult (CMS/HCC) , Paroxysmal atrial fibrillation (CMS/HCC) Inject 0.25 mg under the skin 1 (one) time per week 09/09/2024 Active warfarin sodium 5 mg oral tablet (9 sources) Vitamin K Antagonist Start: 07-21-2024 warfarin [...] Problem Date Documented Date Episodic/Chronic Adjustment disorders (9 sources) Adjustment disorder in remission; Translations: [Adjustment disorder, unspecified] Onset: 02-23-2023 02-23-2023 Chronic Asthma (10 sources) Unspecified asthma, uncomplicated; Translations: [Asthmatic bronchitis] Onset: 12-18-2022 02-23-2023 Chronic Cardiac and circulatory congenital anomalies (10 sources) Atrial septal defect; Translations: [Atrial septal defect] Onset: 04-04-2024 04-04-2024 Chronic Cardiac dysrhythmias (20 sources) Unspecified atrial fibrillation; Translations: [Paroxysmal atrial fibrillation] Onset: 10-27-2022 Chronic Cardiac dysrhythmias (1 source) Cardiac dysrhythmias Onset: 02-08-2018 Coagulation and hemorrhagic disorders (9 sources) Thrombophilia; Translations: [Other thrombophilia] Onset: 03-07-2024 03-07-2024 Chronic Deficiency and other anemia (4 sources) Iron deficiency anemia secondary to blood loss (chronic); Translations: [IRON DEFIC ANEMIA SEC BLD LOSS CHRN] Onset: 05-22-2022 Chronic Deficiency and other anemia (9 sources) Iron deficiency anemia due to blood loss; Translations: [Iron deficiency anemia secondary to blood loss (chronic)] Onset: 02-23-2023 02-23-2023 Chronic Diabetes mellitus without complication (13 sources) Impaired glucose tolerance; Translations: [Impaired glucose tolerance (oral)] Onset: 02-23-2023 02-23-2023 Episodic Disorders of lipid metabolism (20 sources) Hyperlipidemia; Translations: [Hyperlipidemia, unspecified] Onset: 02-23-2023 02-23-2023 Chronic Essential hypertension (16 sources) Essential (primary) hypertension; Translations: [Essential hypertension] Onset: 12-18-2022 02-23-2023 Chronic Heart valve disorders (10 sources) Tricuspid incompetence, non-rheumatic ; Translations: [Nonrheumatic tricuspid (valve) insufficiency] Onset: 04-04-2024 04-04-2024 Chronic Menopausal disorders (15 sources) Other primary ovarian failure; Translations: [Decreased estrogen level] Onset: 01-08-2022 Chronic Mood disorders (9 sources) Depressive disorder; Translations: [Depressive disorder] Onset: 02-23-2023 02-23-2023 Chronic Osteoarthritis (20 sources) Unilateral primary osteoarthritis, right knee; Translations: [Bilateral primary osteoarthritis of knee] Onset: 12-06-2022 Resolved: 03-07-2024 Chronic Osteoporosis (14 sources) Osteoporosis; Translations: [Other osteoporosis without current pathological fracture] Onset: 02-23-2023 Resolved: 09-09-2024 02-23-2023 Chronic Other aftercare (5 sources) Encounter for therapeutic drug level monitoring; Translations: [ENC THERAPEUTC DRUG LEVL MONITORING] Onset: 11-22-2022 Episodic Other aftercare (1 source) 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; Translations: [GROUP HOME CURRNT USE ANTICOAGULANTS] Onset: 12-24-2022 Episodic Other and ill-defined heart disease (10 sources) Bilateral enlargement of atria; Translations: [Cardiomegaly] [...] Episodic Other nutritional; endocrine; and metabolic disorders (7 sources) Morbid obesity; Translations: [Morbid (severe) obesity due to excess calories] Onset: 02-23-2023 02-23-2023 Chronic Other nutritional; endocrine; and metabolic disorders (11 sources) Body mass index 40+ - severely obese; Translations: [Body mass index (BMI) 40.0-44.9, adult] Onset: 03-07-2024 03-07-2024 Chronic Other nutritional; endocrine; and metabolic disorders (4 sources) Obesity caused by energy imbalance; Translations: [Morbid (severe) obesity due to excess calories] Onset: 02-23-2023 09-09-2024 Chronic Other skin disorders (2 sources) Skin irritation ; Translations: [Other skin changes] 09-09-2024 Episodic Pulmonary heart disease (6 sources) Pulmonary hypertension; Translations: [Pulmonary hypertension, unspecified] Onset: 09-09-2024 04-04-2024 Chronic Residual codes; unclassified (1 source) Sleep apnea, unspecified; Translations: [SLEEP APNEA UNSPECIFIED] Onset: 12-18-2022 Chronic Residual codes; unclassified (9 sources) Obstructive sleep apnea syndrome; Translations: [Obstructive sleep apnea (adult) (pediatric)] Onset: 02-23-2023 02-23-2023 Chronic Unclassified (2 sources) Dyspnea, unspecified / R06.00(ICD-9) Onset: 02-08-2018 Unclassified (1 source) Tachycardia, unspecified / R00.0(ICD-9) Onset: 02-08-2018 Past or Other Problems Problem Classification Problem Date Documented Da te Episodic/Chronic Neoplasms of unspecified nature or uncertain behavior (9 sources) Neoplasm of uncertain behavior of skin of hand; Translations: [Neoplasm of uncertain behavior of skin] Onset: 03-07-2024 03-07-2024 Episodic Other bone disease and musculoskeletal deformities (1 source) Other specified disorders of bone density and structure, left thigh; Translations: [OTH D/O BONE DEN STRUCT LT THIGH] Onset: 01-23-2022 Episodic Other connective tissue disease (9 sources) Fibromyalgia; Translations: [Fibromyalgia] Onset: 02-23-2023 02-23-2023 Episodic Other connective tissue disease (9 sources) Muscle pain; Translations: [Myalgia, unspecified site] Onset: 02-23-2023 02-23-2023 Episodic Other ear and sense organ disorders (9 sources) Bilateral tinnitus; Translations: [Tinnitus, bilateral] Onset: 02-23-2023 02-23-2023 Episodic Other lower respiratory disease (9 sources) Dyspnea on exertion; Translations: [Other forms of dyspnea] Onset: 03-07-2024 03-07-2024 Episodic Other screening for suspected conditions (not mental disorders or infectious disease) (10 sources) Encounter for screening mammogram for malignant neoplasm of breast; Translations: [Patient encounter status] Onset: 01-23-2022 03-24-2023 Episodic Other skin disorders (9 sources) Bilateral localized swelling of lower legs; Translations: [Localized swelling, mass and lump, lower limb, bilateral] Onset: 03-07-2024 03-07-2024 Episodic Residual codes; unclassified (1 source) Family history of malignant neoplasm of breast; Translations: [FAMILY HX MALIG NEOPLASM OF BREAST] Onset: 01-23-2022 Episodic Unclassified (9 sources) Onset: 10-14-2023 10-14-2023 Results Test Name Value Interpretation Reference Range Facility XR DEXA AXIAL SKELETONon [place] [id number] XRay Report Signed Patient: LESLIE LOPEZ MR#: [id number] : 1950 Acct:[id number] Age/Sex: 73 / F ADM Date: 09/02/24 Loc: RAD Attending Dr: VENECIA KING Ordering Physician: VENECIA KING Date of Service: 09/02/24 Procedure(s): XR DEXA axial skeleton Accession Number(s): [id number] cc: VENECIA KING [address] [address] Patient Name: LESLIE LOPEZ MRN: [facility]:[id number] date: 1950 Sex: F Assigned Patient Location: [facility] Current Patient Location: Accession/Order Number: [id number] Exam Date: 09/02/2024 11:05 Report Date: 09/05/2024 08:35 At the request of: LEONATIFFANY OGDENA Procedure: XR DEXA axial skeleton EXAMINATION: XR DEXA axial skeleton, 09/02/2024 11:05 AM EST HISTORY: Estrogen Deficiency COMPARISON: 2021 TECHNIQUE: Dual-energy X-ray absorptiometry (DEXA) bone density study performed for the axial skeleton. FINDINGS: Bone mineral density AP spine L1-L4 measures 1.08 g/sq cm. T score 0.2. Normal. Lowest bone mineral density left femoral trochanter measuring 0.562 g percent meters per. T score -2.5. Osteoporosis. XR/XR DEXA axial skeleton IMPRESSION: Osteoporosis. High fracture risk Pharmacologic treatment recommendations * No uniform recommendation applies to all patients. Management plans must be individualized. * Consider initiating pharmacologic treatment in postmenopausal women and men >= 50 years of age who have the following: Primary fracture prevention: * T-score <= - 2.5 at the femoral neck, total hip, lumbar spine, 33% radius (some uncertainty with existing data) by DXA. * Low bone mass (osteopenia: T-score between - 1.0 and - 2.5) at the femoral neck or total hip by DXA with a 10-year hip fracture risk >= 3% or a 10-year major osteoporosis-related fracture risk >= 20% (i.e., clinical vertebral, hip, forearm, or proximal humerus) based on the [place]-adapted FRAXregistered model. Secondary fracture prevention: * Fracture of the hip or vertebra regardless of BMD [4, 5]. * Fracture of proximal humerus, pelvis, or distal forearm in persons with low bone mass (osteopenia: T-score between - 1.0 and - 2.5). The decision to treat should be individualized in persons with a fracture of the proximal humerus, pelvis, or distal forearm who do not have osteopenia or low BMD [12, 13]. Rik MS, Evelyn SL, Sherry KL, Heather EM, Kristin KG, AJ, Tawny ES. The clinician's guide to prevention and treatment of osteoporosis. Osteoporos Int. 2021;33(10):9842-1116 . doi: 10.1007/h99193-165-6 5900-y. Epub 2021Nov 21. Erratum in: Osteoporos Int. 2021Feb 20;: PMID: 17994093; PMCID: [id number]. Electronically authenticated by: RADHA TRINIDAD Date: 09/05/2024 08:35 Dictated By: Radha Trinidad M.D. Signed By: 09/05/2437 DD/ TD/TT: Director Of Veterans Affairs: [facility] Radiology, Radiologist, - 09/05/2024 [place] [address] XRay Report Signed Patient: LESLIE LOPEZ MR#: [id number] : 1950 Acct:[id number] Age/Sex: 73 / F ADM Date: 09/02/24 Loc: RAD Attending Dr: VENECIA KING Ordering Physician: VENECIA KING Date of Service: 09/02/24 Procedure(s): XR DEXA axial skeleton Accession Number(s): [id number] cc: VENECIA KING [place] [id number] Patient Name: LESLIE LOPEZ MRN: [facility]:[id number] date: 1950 Sex: F Assigned Patient Location: [facility] Current Patient Location: Accession/Order Number: [id number] Exam Date: 09/02/2024 11:05 Report Date: 09/05/2024 08:35 At the request of: VENECIA KING Procedure: XR DEXA axial skeleton EXAMINATION: XR DEXA axial skeleton, 09/02/2024 11:05 AM EST HISTORY: Estrogen Deficiency COMPARISON: 2021 TECHNIQUE: Dual-energy X-ray absorptiometry (DEXA) bone density study performed for the axial skeleton. FINDINGS: Bone mineral density AP spine L1-L4 measures 1.08 g/sq cm. T score 0.2. Normal. Lowest bone mineral density left femoral trochanter measuring 0.562 g percent meters per. T score -2.5. Osteoporosis. XR/XR DEXA axial skeleton IMPRESSION: Osteoporosis. High fracture risk Pharmacologic treatment recommendations * No uniform recommendation applies to all patients. Management plans must be individualized. * Consider initiating pharmacologic treatment in postmenopausal women and men >= 50 years of age who have the following: Primary fracture prevention: * T-score <= - 2.5 at the femoral neck, total hip, lumbar spine, 33% radius (some uncertainty with existing data) by DXA. * Low bone mass (osteopenia: T-score between - 1.0 and - 2.5) at the femoral neck or total hip by DXA with a 10-year hip fracture risk >= 3% or a 10-year major osteoporosis-related fracture risk >= 20% (i.e., clinical vertebral, hip, forearm, or proximal humerus) based on the [place]-adapted FRAXregistered model. Secondary fracture prevention: * Fracture of the hip or vertebra regardless of BMD [4, 5]. * Fracture of proximal humerus, pelvis, or distal forearm in persons with low bone mass (osteopenia: T-score between - 1.0 and - 2.5). The decision to treat should be individualized in persons with a fracture of the proximal humerus, pelvis, or distal forearm who do not have osteopenia or low BMD [12, 13]. Rik MS, Evelyn SL, Sherry KL, Heather EM, Kristin KG, AJ, Tawny ES. The clinician's guide to prevention and treatment of osteoporosis. Osteoporos Int. 2021;33(10):4079-8584 . doi: 10.1007/a47536-252-7 5900-y. Epub 2021Nov 21. Erratum in: Osteoporos Int. 2021Feb 20;: PMID: 86221228; PMCID: [id number]. Electronically authenticated by: RADHA TRINIDAD Date: 09/05/2024 08:35 Dictated By: Radha Trinidad M.D. Signed By: 09/05/2437 DD/ 4 TD/TT: Director Of Veterans Affairs: [facility] Radiology Study observation (narrative) [facility] XR DEXA AXIAL SKELETONOrdere d By: Radiologist Radiology on 09-05-2024 [facility] [employer] Work Phone: [facility] PROTHROMBIN TIME INR W/O COUMon 08-02-2024 PT Coag (PPP) [Time] 11 s [facility] INR 1.04 [facility] Comment on above: DESIRED INR: 2.0-3.0 CONDITIONS NOT LISTED BELOW 2.5-3.5 FOR PROSTHETIC HEART VALVE REPLACEMENT 2.5-3.5 RECURRENT THROMBOSIS [facility] PROTHROMBIN TIME INR W/O COUMon 07-12-2024 Interpretation and review of laboratory results Abnormal [facility] PT Coag (PPP) [Time] 13.3 s [facility] INR 1.29 [facility] Comment on above: DESIRED INR: 2.0-3.0 CONDITIONS NOT LISTED BELOW 2.5-3.5 FOR PROSTHETIC HEART VALVE REPLACEMENT 2.5-3.5 RECURRENT THROMBOSIS [facility] Office Visiton 06-07-2024 Follow-up visit [id number] Leslie Lopez 1950 F Date Provider Department Center 06/07/2024 CARLINE SHRESTHA [facility] Family History Problem Relation Age of Onset No Known Problems Mother No Known Problems Father Family Status - Relation Status Age at Mother Father Level of Service:17147 [place] OFFICE/OUTPATIENT NEW MODERATE MDM 45 MINUTES Normal [facility] PROTIMEon 12-16-2022 INR Coag (PPP) [Relative time] 1.02 {INR} Normal [facility] Comment on above: Performed By: #### P T #### [facility] [address] [place] [address] [address] Justyn Quintanilla INR GUIDELINES SEE BELOW Normal [facility] Comment on above: Result Comment: THAI RED INR: 2.0 - 3.0 CONDITIONS NOT LISTED BELOW 2.5 - 3.5 FOR PROSTHETIC HEART VALVE REPLACEMENT 2.5 - 3.5 RECURRENT THROMBOSIS Performed By: #### P T #### [facility] [address] [place] [address] [address] Justyn Quintanilla PT Coag (PPP) [Time] 10.8 s Normal 9.0-11.6 [facility] Comment on above: Performed By: #### P T #### [facility] [address] [place] [address] [address] Justyn Quintanilla CBC AUTO DIFFon 05-22-2022 BASO # 0.0 103/ul Normal 0.0-0.1 [facility] Comment on above: Performed By: #### C BC #### [facility] [address] [place] [address] Dr. Justyn Quintanilla Basophils/100 WBC (Bld) 0.5 % Normal 0.2-2.0 [facility] Comment on above: Performed By: #### C BC #### [facility] [address] [place] [address] Dr. Justyn Quintanilla EO # 0.1 103/ul Normal 0.0-0.7 [facility] Comment on above: Performed By: #### C BC #### [facility] [address] [place] [address] Dr. Justyn Quintanilla Eosinophils/100 WBC (Bld) 2.9 % Normal 0.9-7.0 [facility] Comment on above: Performed By: #### C BC #### [facility] [address] [place] [address] Dr. Justyn Quintanilla Erythrocyte distribution width (RBC) [Ratio] 20.7 % Critically high 11.0-15.0 [facility] Comment on above: Performed By: #### C BC #### [facility] [address] [place] [address] Dr. Justyn Quintanilla Hematocrit (Bld) [Volume fraction] 29.7 % Critically low 36.0-48.0 [facility] Comment on above: Performed By: #### C BC #### [facility] [address] [place] [address] Dr. Justyn Quintanilla Hemoglobin (Bld) [Mass/Vol] 9.0 g/dL Critically low 12.0-16.0 [facility] Comment on above: Performed By: #### C BC #### [facility] [address] [place] [address] Dr. Justyn Quintanilla IG # 0.01 10e3/ul Normal 0.00-0.03 [facility] Comment on above: Performed By: #### C BC #### [facility] [address] [place] [address] Dr. Justyn Quintanilla IG % 0.2 % Normal 0.0-0.5 [facility] Comment on above: Performed By: #### C BC #### [facility] [address] [place] [address] Dr. Justyn Quintanilla LYMPH # 1.2 103/ul Normal 1.2-3.8 [facility] Comment on above: Performed By: #### C BC #### [facility] [address] [place] [address] Dr. Justyn Quintanilla Lymphocytes/100 WBC (Bld) 29.0 % Normal 20.5-60.0 [facility] Comment on above: Performed By: #### C BC #### [facility] [address] [place] [address] Dr. Justyn Quintanilla MANUAL DIFF REQ NO Normal [facility] Comment on above: Performed By: #### C BC #### [facility] [address] [place] [address] Dr. Justyn Quintanilla MCH (RBC) [Entitic mass] 28.6 pg Normal 26.7-34.0 [facility] Comment on above: Performed By: #### C BC #### [facility] [address] [place] [address] Dr. Justyn Quintanilla MCHC (RBC) [Mass/Vol] 30.3 g/dL Normal 29.9-35.2 [facility] Comment on above: Performed By: #### C BC #### [facility] [address] [place] [address] Dr. Justyn Quintanilla MCV (RBC) [Entitic vol] 94.3 fL Normal 81.0-99.0 [facility] Comment on above: Performed By: #### C BC #### [facility] [address] [place] [address] Dr. Justyn Quintanilla MONO # 0.4 103/ul Normal 0.3-0.8 [facility] Comment on above: Performed By: #### C BC #### [facility] [address] [place] [address] Dr. Justyn Quintanilla Monocytes/100 WBC (Bld) 9.8 % Normal 1.7-12.0 [facility] Comment on above: Performed By: #### C BC #### [facility] [address] [place] [address] Dr. Justyn Quintanilla NEUT # 2.3 103/ul Normal 1.4-6.5 [facility] Comment on above: Performed By: #### C BC #### [facility] [address] [place] [address] Dr. Justyn Quintanilla Neutrophils/100 WBC (Bld) 57.6 % Normal 43.0-75.0 [facility] Comment on above: Performed By: #### C BC #### [facility] [address] [place] [address] Dr. Justyn Quintanilla Platelet mean volume (Bld) [Entitic vol] 9.2 fL Critically low 9.5-13.5 [facility] Comment on above: Performed By: #### C BC #### [facility] [address] [place] [address] Dr. Justyn Quintanilla PLT 361 103/ul Normal 150-450 [facility] Comment on above: Performed By: #### C BC #### [facility] [address] [place] [address] Dr. Justyn Quintanilla RBC 3.15 106/ul Critically low 4.20-5.40 [facility] Comment on above: Performed By: #### C BC #### [facility] [address] [place] [address] Dr. Justyn Quintanilla WBC 4.1 103/ul Normal 4.0-11.0 [facility] Comment on above: Performed By: #### C BC #### [facility] [address] [place] [address] Dr. Justyn Quintanilla MG MAMM SCREEN 3D JACQUELINE CADon 01-08-2022 MG MAMM SCREEN 3D JACQUELINE CAD Patient: LESLIE LOPEZ Exam Date: 01/08/2022 : 1950 Gender:F Ordering : DR VENECIA KING M.D. Admission #: [id number] Family : Order #: [id number] CLICK HERE TO VIEW EXAM RADIOLOGY REPORT [...] breast cancer at age 81. LOCATION: [facility] BREAST COMPOSITION: Scattered areas fibroglandular density. FINDINGS: [...] LUMP SHOULD BE BIOPSIED. Dictated by: Radha Trinidad MD on 01/23/2022 at 08:04 Approved by: Radha Trinidad MD on 01/23/2022 at 08:05 Normal [facility] XR DEXA BONE DENSITYon 01-08 XR DEXA [...] by: CINTHYA PHAM Date: 2022-01-08 18:00 Normal [facility] Complete Blood Count with Au to Diffon 12-17-2021 Basophils (Bld) [#/Vol] 0.05 10*3/uL Normal 0.00-0.20 [facility] Senior Automation Engineer Comment on above: Performed By: #### V ITD, LIPD, smear, CBCAD, CMP #### [facility] [address], [place] [id number] Basophils/100 WBC (Bld) 1.3 % Normal [facility] Comment on above: Performed By: #### V ITD, LIPD, smear, CBCAD, CMP #### [facility] [address], [place] [id number] Eosinophils (Bld) [#/Vol] 0.08 10*3/uL Normal 0.02-0.50 [facility] Comment on above: Performed By: #### V ITD, LIPD, smear, CBCAD, CMP #### [facility] [address], [place] [id number] Eosinophils/100 WBC (Bld) 2.1 % Normal [facility] Comment on above: Performed By: #### V ITD, LIPD, smear, CBCAD, CMP #### [facility] [address], [place] [id number] Erythrocyte distribution width (RBC) [Ratio] 17.8 % High 11.0-15.0 [facility] Comment on above: Performed By: #### V ITD, LIPD, smear, CBCAD, CMP #### [facility] [address], [place] [id number] Hematocrit (Bld) [Volume fraction] 30.4 % Low 35.0-47.0 [facility] Comment on above: Performed By: #### V ITD, LIPD, smear, CBCAD, CMP #### [facility] [address], [place] [id number] Hemoglobin (Bld) [Mass/Vol] 8.7 g/dL Low 11.6-15.5 [facility] Comment on above: Performed By: #### V ITD, LIPD, smear, CBCAD, CMP #### [facility] [address], [place] [id number] Lymphocytes (Bld) [#/Vol] 1.0 10*3/uL Normal 0.9-3.9 [facility] Comment on above: Performed By: #### V ITD, LIPD, smear, CBCAD, CMP #### [facility] [address], [place] [id number] Lymphocytes/100 WBC (Bld) 25.1 % Normal [facility] Comment on above: Performed By: #### V ITD, LIPD, smear, CBCAD, CMP #### [facility] [address], [place] [id number] MCH (RBC) [Entitic mass] 21.1 pg Low 27.0-33.0 [facility] Comment on above: Performed By: #### V ITD, LIPD, smear, CBCAD, CMP #### [facility] [address], [place] [id number] MCHC (RBC) [Mass/Vol] 28.6 g/dL Low 32.0-36.0 [facility] Comment on above: Performed By: #### V ITD, LIPD, smear, CBCAD, CMP #### [facility] [address], [place] [id number] MCV (RBC) [Entitic vol] 74 fL Low 80-100 [facility] Comment on above: Performed By: #### V ITD, LIPD, smear, CBCAD, CMP #### [facility] [address], [place] [id number] Monocytes (Bld) [#/Vol] 0.4 10*3/uL Normal 0.2-0.9 [facility] Comment on above: Performed By: #### V ITD, LIPD, smear, CBCAD, CMP #### [facility] [address], [place] [id number] Monocytes/100 WBC (Bld) 9.9 % Normal [facility] Comment on above: Performed By: #### V ITD, LIPD, smear, CBCAD, CMP #### [facility] [address], [place] [id number] Neutrophils (Bld) [#/Vol] 2.4 10*3/uL Normal 1.5-7.8 [facility] Comment on above: Performed By: #### V ITD, LIPD, smear, CBCAD, CMP #### [facility] [address], [place] [id number] Neutrophils/100 WBC (Bld) 61.3 % Normal [facility] Comment on above: Performed By: #### V ITD, LIPD, smear, CBCAD, CMP #### [facility] [address], [place] [id number] Platelet mean volume (Bld) [Entitic vol] 10.00 fL Normal 7.50-12.50 [facility] Comment on above: Performed By: #### V ITD, LIPD, smear, CBCAD, CMP #### [facility] [address], [place] [id number] Platelets (Bld) [#/Vol] 255 10*3/uL Normal 140-400 [facility] Comment on above: Performed By: #### V ITD, LIPD, smear, CBCAD, CMP #### [facility] [address], [place] [id number] RBC (Bld) [#/Vol] 4.13 10*6/uL Normal 3.90-5.20 [facility] Comment on above: Performed By: #### V ITD, LIPD, smear, CBCAD, CMP #### [facility] [address], [place] [id number] RDW-SD 46.7 fL Normal 37.0-50.0 [facility] Comment on above: Performed By: #### V ITD, LIPD, smear, CBCAD, CMP #### [facility] [address], [place] [id number] REFLEX Smear Review Normal [facility] Comment on above: Performed By: #### V ITD, LIPD, smear, CBCAD, CMP #### [facility] [address], [place] [id number] WBC (Bld) [#/Vol] 3.8 10*3/uL Normal 3.8-11.0 [facility] Senior Automation Engineer Comment on above: Performed By: #### V ITD, LIPD, smear, CBCAD, CMP #### [facility] [address], [place] [id number] Comprehensive Metabolic Pane faisal 12-17-2021 Albumin [Mass/Vol] 4.1 g/dL Normal 3.6-5.[address] [facility] Comment on above: Performed By: #### V ITD, LIPD, smear, CBCAD, CMP #### [facility] [address], [place] [id number] Albumin/Globulin [Mass ratio] 2.0 {ratio} Normal 1.0-2.5 [facility] Comment on above: Performed By: #### V ITD, LIPD, smear, CBCAD, CMP #### [facility] [address], [place] [id number] ALP [Catalytic activity/Vol] 85 U/L Normal 35-119 [facility] Comment on above: Performed By: #### V ITD, LIPD, smear, CBCAD, CMP #### [facility] [address], [place] [id number] ALT [Catalytic activity/Vol] 12 U/L Normal 6-33 [facility] Comment on above: Result Comment: 06/26 Female reference range changed. Performed By: #### V ITD, LIPD, smear, CBCAD, CMP #### [facility] [address], [place] [id number] Anion gap [Moles/Vol] 15 mmol/L Normal 12-20 [facility] Comment on above: Result Comment: Effe ctive 08/01/2019 reference range changed. Performed By: #### V ITD, LIPD, smear, CBCAD, CMP #### [facility] [address], [place] [id number] AST [Catalytic activity/Vol] 18 U/L Normal 9-34 [facility] Comment on above: Performed By: #### V ITD, LIPD, smear, CBCAD, CMP #### [facility] [address], [place] [id number] Bilirubin [Mass/Vol] 0.47 mg/dL Normal 0.30-1.20 [facility] Comment on above: Performed By: #### V ITD, LIPD, smear, CBCAD, CMP #### [facility] [address], [place] [id number] BUN/CREA 28 Ratio High 6-22 [facility] Comment on above: Performed By: #### V ITD, LIPD, smear, CBCAD, CMP #### [facility] [address], [place] [id number] Calcium [Mass/Vol] 9.3 mg/dL Normal 8.6-10.[address] [facility] Comment on above: Performed By: #### V ITD, LIPD, smear, CBCAD, CMP #### [facility] [address], [place] [id number] Chloride [Moles/Vol] 103 mmol/L Normal 98-107 [facility] Comment on above: Performed By: #### V ITD, LIPD, smear, CBCAD, CMP #### [facility] [address], [place] [id number] CO2 [Moles/Vol] 27 mmol/L Normal 20-31 [facility] Comment on above: Performed By: #### V ITD, LIPD, smear, CBCAD, CMP #### [facility] [address], [place] [id number] Creatinine [Mass/Vol] 0.6 mg/dL Normal 0.6-1.4 [facility] Comment on above: Performed By: #### V ITD, LIPD, smear, CBCAD, CMP #### [facility] [address], [place] [id number] eGFRAA 122 mL/min/1.73m2 Normal >60 [facility] Comment on above: Performed By: #### V ITD, LIPD, smear, CBCAD, CMP #### [facility] [address], [place] [id number] eGFRNAA 101 mL/min/1.73m2 Normal >60 [facility] Comment on above: Performed By: #### V ITD, LIPD, smear, CBCAD, CMP #### [facility] [address], [place] [id number] Globulin (S) [Mass/Vol] 2.1 g/dL Normal 1.9-3.7 [facility] Comment on above: Performed By: #### V ITD, LIPD, smear, CBCAD, CMP #### [facility] [address], [place] [id number] Glucose [Mass/Vol] 100 mg/dL High 65-99 [place] [facility] Senior Automation Engineer Comment on above: Result Comment: For FASTING Glucose --- ADA reference ranges: Normal 65-99 mg/dl Prediabetes 100-125 Diabetes >/= 126 Performed By: #### V ITD, LIPD, smear, CBCAD, CMP #### [facility] [address], [place] [id number] Potassium [Moles/Vol] 4.8 mmol/L Normal 3.5-5.5 [facility] Senior Automation Engineer Comment on above: Performed By: #### V ITD, LIPD, smear, CBCAD, CMP #### [facility] [address], [place] [id number] Protein [Mass/Vol] 6.2 g/dL Normal 6.1-8.1 [facility] Senior Automation Engineer Comment on above: Performed By: #### V ITD, LIPD, smear, CBCAD, CMP #### [facility] [address], [place] [id number] Sodium [Moles/Vol] 140 mmol/L Normal 135-146 [facility] Senior Automation Engineer Comment on above: Performed By: #### V ITD, LIPD, smear, CBCAD, CMP #### [facility] [address], [place] [id number] Urea nitrogen [Mass/Vol] 16 mg/dL Normal 7-25 [facility] Senior Automation Engineer Comment on above: Performed By: #### V ITD, LIPD, smear, CBCAD, CMP #### [facility] [address], [place] [id number] Hemoglobin A1Con 12-17-2021 EAG 122.63 Normal [facility] Senior Automation Engineer Comment on above: Performed By: #### A 1C #### [facility] [address], [place] [id number] HbA1c (Bld) [Mass fraction] 5.9 % Normal 4.0-6.0 [facility] Senior Automation Engineer Comment on above: Performed By: #### A 1C #### [facility] [address], [place] [id number] Lipid Panelon 12-17-2021 Cholesterol [Mass/Vol] 178 mg/dL Normal 125-200 [facility] Senior Automation Engineer Comment on above: Result Comment: Low risk < 200mg/dL Borderline risk 201-239 mg/dl High risk > or equal to 240 Performed By: #### V ITD, LIPD, smear, CBCAD, CMP #### [facility] [address], [place] [id number] Cholesterol in HDL [Mass/Vol] 54 mg/dL Normal >40 [facility] Senior Automation Engineer Comment on above: Result Comment: High Cardiovascular Risk HDL <40 mg/dL Low Cardiovascular Risk HDL > or equal to 60 mg/dl Performed By: #### V ITD, LIPD, smear, CBCAD, CMP #### [facility] [address], [place] [id number] Cholesterol in LDL [Mass/Vol] 111 mg/dL Normal [facility] Senior Automation Engineer Comment on above: Result Comment: LDL ATP III CLASSIFICATION LDL less than 100 mg/dl Optimal LDL 100-129 mg/dl Near or above optimal LDL 130-159 Borderline high LDL 160-189 High LDL greater than 189 mg/dl Very High Performed By: #### V ITD, LIPD, smear, CBCAD, CMP #### [facility] [address], [place] [id number] Cholesterol in VLDL [Mass/Vol] 13 mg/dL Normal [facility] Senior Automation Engineer Comment on above: Performed By: #### V ITD, LIPD, smear, CBCAD, CMP #### [facility] [address], [place] [id number] Cholesterol.total/Ch olesterol in HDL [Mass ratio] 3 {ratio} Normal [facility] Senior Automation Engineer Comment on above: Performed By: #### V ITD, LIPD, smear, CBCAD, CMP #### [facility] [address], [place] [id number] Triglyceride [Mass/Vol] 67 mg/dL Normal 30-150 [facility] Senior Automation Engineer Comment on above: Result Comment: TRIG ATPIII CLASSIFICATIONS TRIG less than 150 mg/dl Normal TRIG 150-199 mg/dl Borderline High TRIG 200-500 mg/dl High TRIG greather than 500 mg/dl Very High Performed By: #### V ITD, LIPD, smear, CBCAD, CMP #### [facility] [address], [place] [id number] Smear Reviewon 12-17-2021 PLT EST Adequate Normal [facility] Senior Automation Engineer Comment on above: Performed By: #### V ITD, LIPD, smear, CBCAD, CMP #### [facility] [address], [place] [id number] RBC morphology finding Nom (Bld) RBC morphology review confirms RBC indices Normal [facility] Senior Automation Engineer Comment on above: Performed By: #### V ITD, LIPD, smear, CBCAD, CMP #### [facility] [address], [place] [id number] Vitamin D 25-OHon 12-17-2021 VIT D 25 OH 48 ng/ml Normal >29 [facility] Senior Automation Engineer Comment on above: Result Comment: Miladys min D Status Deficiency <20 ng/mL Insufficiency 20-29 ng/mL Optimal 30-100 ng/mL Possible Toxicity >=150 ng/mL Performed By: #### V ITD, LIPD, smear, CBCAD, CMP #### [facility] [address], [place] [id number] Vital Signs Date Time Vital Sign Value Performing Clinician [place] [facility] 09-09-2024 11:02-0500 Body height 165.1 cm Ignacia Hemmer PA Work Phone: [facility] 09-09-2024 11:02-0500 Body mass index (BMI) [Ratio] 44.13 kg/m2 Ignacia Hemmer PA Work Phone: [facility] 09-09-2024 11:02-0500 Body weight 120.29 kg Ignacia Hemmer PA Work Phone: [facility] 09-09-2024 11:02-0500 Diastolic blood pressure 92 mm[Hg] Ignacia Hemmer PA Work Phone: [facility] 09-09-2024 11:02-0500 Heart rate 66 /min Ignacia Hemmer PA Work Phone: [facility] 09-09-2024 11:02-0500 Respiratory rate 16 /min Ignacia Hemmer PA Work Phone: [facility] 09-09-2024 11:02-0500 SaO2% (BldA) [Mass fraction] 97 % Ignacia Hemmer PA Work Phone: [facility] 09-09-2024 11:02-0500 Systolic blood pressure 128 mm[Hg] Ignacia MARQUEZ Work Phone: [facility] 04-04-2024 10:07-0400 Body height 165.1 cm Venecia King MD Work Phone: [facility] 04-04-2024 10:07-0400 Body mass index (BMI) [Ratio] 43.6 kg/m2 Venecia King MD Work Phone: [facility] 04-04-2024 10:07-0400 Body weight 118.84 kg Venecia King MD Work Phone: [facility] 04-04-2024 10:07-0400 Diastolic blood pressure 88 mm[Hg] Venecia King MD Work Phone: [facility] 04-04-2024 10:07-0400 Heart rate 90 /min Venecia King MD Work Phone: [facility] 04-04-2024 10:07-0400 SaO2% (BldA) [Mass fraction] 98 % Venecia King MD Work Phone: [facility] 04-04-2024 10:07-0400 Systolic blood pressure 120 mm[Hg] Venecia King MD Work Phone: [facility] Healthcare Encounters Encounter Date Encounter Type Care Provider Facility Start: 09-09-2024 End: 09-09-2024 Bamboo flowsheet Ignacia MARQUEZ Work Phone: [facility] Start: 09-09-2024 End: 09-09-2024 Bamboo flowsheet Ignacia MARQUEZ Work Phone: [facility] Start: 09-09-2024 End: 09-09-2024 Office outpatient visit 25 minutes Ignacia MARQUEZ Work Phone: [facility] Comment on above: Age-related osteopor osis without current pathological fracture (CMS/HCC) (Primary Dx); Skin irritation; Pulmonary hypertension, unspecified (CMS/HCC); Morbid (severe) obesity due to excess calories (CMS/HCC); Body mass index (BMI) 40.0-44.9, adult (CMS/HCC); Essential hypertension (CMS/HCC); Paroxysmal atrial fibrillation (CMS/HCC); Glucose intolerance (impaired glucose tolerance) Start: 09-09-2024 End: 09-09-2024 ambulatory IGNACIA GROVERKATHRYN Not Available Start: 09-05-2024 End: 09-05-2024 Clinisync Result Encounter Venecia King MD Work Phone: [facility] Unsolic[facility] Start: 09-05-2024 End: 09-05-2024 Clinisync Result Encounter Venecia King MD Work Phone: [facility] Start: 08-02-2024 End: [...] External Department Unsolicited Start: 06-07-2024 End: 06-07-2024 ambulatory [facility] Start: 04-04-2024 End: 04-04-2024 Bamboo flowsheet Venecia King MD Work Phone: [facility] Start: 04-04-2024 End: 04-04-2024 Bamboo flowsheet Venecia King MD Work Phone: [facility] Start: 04-04-2024 End: 04-04-2024 Assay of hemosiderin, quant Venecia King MD Work Phone: [facility] Start: 04-04-2024 End: 04-04-2024 Patient encounter procedure Venecia King MD Work Phone: [facility] Comment on above: Routine general medi flor examination at [facility] facility (Primary Dx); Abnormal glucose tolerance test; Benign essential hypertension ([facility]/HCC); Medicare annual wellness visit, subsequent; Paroxysmal atrial fibrillation ([facility]/HCC); Elevated LDL cholesterol level ([facility]/HCC); Estrogen deficiency; Essential hypertension (CMS/HCC); Pulmonary hypertension, unspecified ([facility]/HCC); Atrial septal defect; Nonrheumatic tricuspid valve regurgitation; Biatrial enlargement Start: 04-04-2024 End: 04-04-2024 ambulatory VENECIA KING Not Available Start: 03-07-2024 End: 03-07-2024 ambulatory IGNACIA FELIPE Not Available Start: 12-25-2023 End: 12-25-2023 ambulatory IGNACIA FELIPE Not Available Start: 12-18-2023 End: 12-18-2023 ambulatory IGNACIA FELIPE Not Available Start: 10-20-2023 End: 10-20-2023 ambulatory VENECIA KING Not Available Start: 03-24-2023 End: 12-25-2023 Assay of hemosiderin, lyn King MD Work Phone: [facility] Start: 03-24-2023 End: 09-09-2024 Patient encounter procedure Ignacia MARQUEZ Work Phone: [facility] Start: 01-01-2023 ambulatory NARENDRANATH LAKSHMIPATHY . Facility:[facility] [...] Start: 02-24-2022 End: 03-26-2022 ambulatory SHAIKH Mina MÉNDEZAngel Facility:[facility] Start: 01-24-2022 End: 02-21-2022 ambulatory SHAIKH Mina MÉNDEZAngel Facility:[facility] Start: 01-08-2022 End: 01-09-[address] VENECIA KING Facility:[facility] Start: 02-09-2018 Patient encounter KELLER ALLRED Fac ility:[id number] Start: 02-08-2018 Patient encounter KELLER ALLRED Fac ility:[id number] Start: 02-08-2018 Patient encounter Facil [id number] Start: 11-27-2017 End: 11-28-2017 Ambulatory DEFAULT PHYSICIAN Facility:[facility] Procedures Date Procedure Procedure Detail Performing Clinician Start: 09-05-2024 XR DEXA AXIAL SKELETON Venecia King MD Work Phone: Start: 08-02-2024 SRMCOH PROTHROMBIN T CECY INR [...] Screening for malign ant neoplasm of colon [facility] Start: 10-19-2024 Urine screening for protein Diabetes: Urine Protein Screening [facility] Start: 09-09-2024 End: 09-09-2024 Patient encounter procedure 09/09/2024 11:00 AM EST Office Visit [facility] [address] [facility] [address] [place] [id number] Ignacia Felipe PA [address] [place] [address] Arrived [facility] Comment on above: Arrived Start: 04-21-2024 Screening for malign ant neoplasm of breast Mammogram [facility] Start: 04-04-2024 End: 04-04-2025 CBC W Auto Differential panel - Blood CBC and differential Lab Routine Medicare annual wellness visit, subsequent Paroxysmal atrial fibrillation (CMS/HCC) Elevated LDL cholesterol level (CMS/HCC) Expected: 04/04/2024 (Approximate), Expires: 04/04/2025 [facility] Work Phone: Comment on above: Expected: 04/04/2024 (Approximate), Expires: 04/04/2025 Start: 04-04-2024 End: 04-04-2025 Comprehensive metabolic 2000 panel - Serum or Plasma Comprehensive metabolic panel Lab Routine Medicare annual wellness visit, subsequent Paroxysmal atrial fibrillation (CMS/HCC) Elevated LDL cholesterol level (CMS/HCC) Expected: 04/04/2024 (Approximate), Expires: 04/04/2025 [facility] Comment on above: Expected: 04/04/2024 (Approximate), Expires: 04/04/2025 Start: 04-04-2024 End: 04-04-2025 DXA Skeletal system Views for bone density DEXA bone density Imaging Routine Estrogen deficiency Expected: 04/04/2024, Expires: 04/04/2025 [facility] Comment on above: Expected: 04/04/2024 , Expires: 04/04/2025 Start: 04-04-2024 End: 04-04-2025 Lipid 1996 panel - Serum or Plasma Lipid panel Lab Routine Medicare annual wellness visit, subsequent Elevated LDL cholesterol level (CMS/HCC) Expected: 04/04/2024 (Approximate), Expires: 04/04/2025 [facility] Comment on above: Expected: 04/04/2024 (Approximate), Expires: 04/04/2025 Start: 04-04-2024 End: 04-04-2024 Patient encounter procedure 04/04/2024 10:30 AM EDT Office Visit [facility] [address] [place] [id number] Venecia King MD [address] [place] [address] Arrived [facility] Comment on above: Arrived Start: 03-27-2024 Influenza vaccination Influenza Vacc ine (#1) [facility] Start: 03-24-2024 Medicare Annual Well ness (AWV) Medicare Annual Wellness (AWV) [facility] Start: 01-20-2024 Hemoglobin A1c measurement Diabetes: Hemoglobin A1C [facility] Start: 11-06-1960 Glaucoma screening Diabetes: R etinopathy Screening [facility] Start: 1950 Screening for malign ant neoplasm of colon [facility] Immunizations Immunization Date Immunization Notes Care Provider Fa cility 07-21-2024 influenza, high dose seasonal, preservative-free Ignacia MARQUEZ Work Phone: [facility] Work Phone: 05-18-2023 Influenza, Seasonal, Quadrivalent, Adjuvanted Venecia King MD Work Phone: [facility] 05-18-2023 influenza virus vacc ine, unspecified formulation Venecia King MD Work Phone: [facility] 06-11-2022 Influenza, Seasonal, Quadrivalent, Adjuvanted Venecia King MD Work Phone: [facility] 05-05-2021 influenza, high dose seasonal, preservative-free Venecia King MD Work Phone: [facility] 05-05-2021 Influenza, High-dose Seasonal, Quadrivalent, Preservative Free Venecia King MD Work Phone: [facility] 05-27-2020 Influenza, Seasonal, Quadrivalent, Adjuvanted Venecia King MD Work Phone: [facility] 05-10-2019 influenza, high dose seasonal, preservative-free Venecia King MD Work Phone: [facility] 05-10-2019 pneumococcal polysaccharide vaccine, 23 valent Venecia King MD Work Phone: [facility] 04-14-2019 pneumococcal polysaccharide vaccine, 23 valent Venecia King MD Work Phone: [facility] 04-14-2019 tetanus toxoid, redu bridgett diphtheria toxoid, and acellular pertussis vaccine, adsorbed Venecia King MD Work Phone: [facility] 03-22-2018 influenza, high dose seasonal, preservative-free Venecia King MD Work Phone: [facility] 03-22-2018 pneumococcal conjuga te vaccine, 13 valent Venecia King MD Work Phone: [facility] 06-03-2017 influenza, high dose seasonal, preservative-free Venecia King MD Work Phone: [facility] 07-08-2016 tetanus toxoid, redu bridgett diphtheria toxoid, and acellular pertussis vaccine, adsorbed Venecia King MD Work Phone: [facility] 05-29-2016 seasonal influenza, intradermal, preservative free Venecia King MD Work Phone: [facility] 05-08-2015 influenza, seasonal, injectable, preservative free Venecia King MD Work Phone: [facility] 10-05-2009 tetanus and diphther ia toxoids, adsorbed, preservative free, for adult use (2 Lf of tetanus toxoid and 2 Lf of diphtheria toxoid) Venecia King MD Work Phone: [facility] Payers Date Payer Category Payer [facility] er [id number] 2016 Medicare [id number] 2016 Unknown 1958 Medicare [id number] 1958 Unknown [id number] 1950 Unknown [id number] 1950 Unknown [id number] 2.16.840.1.651119.3.579. 2.593 1950 Unknown [id number] 2.16.840.1.105072.3.579. 2.593 1950 Unknown [id number] 2.16.840.1.916889.3.579. 2.593 1950 Unknown [id number] 2.16.840.1.075516.3.579. 2.593 1950 Unknown [id number] 2.16.840.1.688929.3.579. 2.593 1950 Unknown [id number] 2.16.840.1.046090.3.579. 2.593 1950 Unknown [id number] 2.16.840.1.261325.3.579. 2.593 1951 Unknown [id number] 2.16.840.1.224918.3.579. 2.593 1951 Unknown [id number] 2.16.840.1.419192.3.579. 2.593 1951 Unknown [id number] 2.16.840.1.941576.3.579. 2.593 1951 Unknown [id number] 2.16.840.1.046083.3.579. 2.593 1951 Unknown [id number] 2.16.840.1.182281.3.579. 2.593 1951 Unknown [id number] 2.16.840.1.137706.3.579. 2.593 1951 Unknown [id number] 2.16.840.1.489648.3.579. 2.593 1951 Unknown [id number] 2.16.840.1.776863.3.579. 2.593 1951 Unknown [id number] 2.16.840.1.643988.3.579. 2.593 1951 Unknown [id number] 2.16.840.1.021561.3.579. 2.1259 1950 Unknown [id number] 2.16.840.1.602794.3.579. 2.1259 1951 Unknown [id number] 2.16.840.1.589531.3.579. 2.1259 1951 Unknown [id number] 2.16.840.1.694887.3.579. 2.1259 1950 Unknown [id number] 2.16.840.1.073887.3.579. 2.1259 1950 Unknown [id number] 2.16.840.1.521897.3.579. 2.1259 Medicare [id number] Social History Date Type Detail Facility Start: 03-24-2023 Tobacco smoking stat [facility] Never smoked tobacco [facility] Start: 03-24-2023 Tobacco use and exposure Smokeless tobacco non-user [facility] Start: 04-04-2024 End: 09-09-2024 Alcoholic beverage intake Lifetime non-drinker (finding) [facility] [...] got money to buy more. Never true [facility] Start: 05-07-2023 Alcohol Comment caffeine: rafal olate, coffee,soda,tea [facility] Start: 1950 Sex assigned at Not on file [facility] History of Present illness Narrative 09-09-2024 JIMMY Huynh - 09/09/2024 11:00 AM EST Note Date & Type Note Facility 09-09-2024 History of Presen t illness Narrative Images from the original note were not included. HPI chapped lips Additional comments: States her lips are painful, swollen, cracking, very red lips. She has used every OTC chap stick she can think of. She has changed her laundry detergent and has not been wearing any perfume to see if that was what was causing the issue but it is still there. Last edited by Isadora Deal LPN on 09/09/2024 11:00 AM. Subjective Patient ID: Leslie Lopez is a 73 y.o. female who presents for osteoporosis. Leslie is present today to discuss options to treat osteoporosis. She would like to discuss either the Fosamax or Prolia injections. States thinks in the past she did receive the Prolia injection once in the past, but felt very achy after the injection, admits she did not drink enough water though. Has not been to the dentist recently due to cost, but is agreeable to starting to do so again. Current Outpatient Medications on File Prior to Visit Medication Sig Dispense Refill amiodarone (Pacerone) 200 MG tablet Take 200 mg by mouth Daily pregabalin (Lyrica) 50 MG capsule Take 50 mg by mouth in the morning and 50 mg before bedtime. [DISCONTINUED] rivaroxaban (Xarelto) 20 MG tablet Take 20 mg by mouth in the evening. Take with meals CALCIUM MAGNESIUM ZINC PO Take 1 tablet by mouth Daily carvedilol (Coreg) 12.5 MG tablet TAKE 1 TABLET TWICE DAILY WITH FOOD 200 tablet 3 dilTIAZem CD (Cardizem CD) 240 [...] for dizziness metaxalone (Skelaxin) 800 MG tablet TAKE 1 TABLET BY MOUTH IN THE MORNING, IN THE EVENING AND BEFORE BEDTIME 90 tablet 3 PARoxetine (Paxil) 20 MG tablet TAKE 1 TABLET EVERY MORNING 90 tablet 3 potassium chloride CR (Klor-Con M10) 10 MEQ ER tablet Take 1 tablet (10 mEq) by mouth Daily Do not crush or chew. 90 tablet 3 warfarin (Coumadin) 5 MG tablet TAKE 1 TABLET ONE TIME DAILY, EXCEPT TAKE 2 TABLETS ON SUNDAYS AND WEDNESDAYS 120 tablet 3 [DISCONTINUED] metFORMIN (Glucophage) 500 MG tablet TAKE 1 TABLET EVERY MORNING WITH A MEAL 100 tablet 3 [DISCONTINUED] Misc Natural Products (OSTEO BI-FLEX ADV TRIPLE ST PO) Take 1 tablet by mouth Daily No current facility-administered medications on file prior to visit. I have reviewed and reconciled the history and medication list with the patient today. Allergies Allergen Reactions Penicillin G Shortness of breath Milnacipran Hcl Other Social History Tobacco Use Smoking status: Never Smokeless tobacco: Never Vaping Use Vaping status: Never Used Substance Use Topics Alcohol use: Never Comment: caffeine: chocolate, coffee,soda,tea Family History Problem Relation Name Age of Onset Cancer Mother Heart disease Mother Mental illness Mother Diabetes Sibling Hypertension Sibling Past Medical History: Diagnosis Date A-fib (CMS/[facility]) 2017 Anemia Fibromyalgia History of being hospitalized 11/2017 food poisoning/a-fib Lexiscan was negative for ischemia EF 61% 02/08/2018 Osteopenia 04/26/2019 Dexa scan shows Osteopenia in hip Osteopenia 01/08/2022 Dexa Shows Osteopenia - Moderate Fracture Risk. -2.6% worsning since prior study Right knee sprain Past Surgical History: Procedure Laterality Date CHOLECYSTECTOMY COLONOSCOPY 1999 Dr. Shelton Has history of hemorrhoids EGD GASTRIC BYPASS 2004 HYSTERECTOMY IR ABLATION NERVE Right 06/16/2023 Knee - RFA Genicular Nerve IR NERVE BLOCK OTHER PERIPHERAL Bilateral 04/14/2023 Genicular Nerve OTHER SURGICAL HISTORY 2010 KENALOG INJECTION;Disease:RIGHT KNEE SPRAIN Visit Vitals BP (!) 128/92 Pulse 66 Resp 16 Ht 5' 5 Wt 265 lb 3.2 oz SpO2 97% BMI 44.13 kg/m Smoking Status Never BSA 2.35 m Review of Systems Constitutional: Positive for unexpected weight change (Gain). Negative for chills, fatigue and fever. Respiratory: Negative for cough, shortness of breath and wheezing. Cardiovascular: Negative for chest pain, palpitations and leg swelling. Gastrointestinal: Negative for abdominal pain, constipation, diarrhea, nausea and vomiting. Musculoskeletal: Positive for arthralgias and gait problem. Skin: Positive for rash. Objective Physical Exam Constitutional: General: She is not in acute distress. Appearance: Normal appearance. She is well-developed. HENT: Head: Normocephalic and atraumatic. Eyes: General: No scleral icterus. Conjunctiva/sclera: Conjunctivae normal. Cardiovascular: Rate and Rhythm: Normal rate and regular rhythm. Heart sounds: Normal heart sounds. No murmur heard. Pulmonary: Effort: Pulmonary effort is normal. No respiratory distress. Breath sounds: Normal breath sounds. No wheezing, rhonchi or rales. Skin: General: Skin is warm and dry. Findings: Erythema present. Comments: Perioral dry skin with confluent erythema, no drainage, no lesions Neurological: General: No focal deficit present. Mental Status: She is alert and oriented to person, place, and time. Psychiatric: Mood and Affect: Mood normal. Behavior: Behavior normal. Assessment/Plan Diagnoses and all orders for this visit: Age-related osteoporosis without current pathological fracture (CMS/HCC) - denosumab (Prolia) 60 MG/ML solution prefilled syringe; Inject 1 mL (60 mg) under the skin 1 (one) time for 1 dose Reviewed with the patient how Fosamax and Prolia work in the body to help with bone density. Also explained potential s/e of the medications including indigestion due to Fosamax, and also osteonecrosis of jaw, atypical hip fractures, bone/joint pain for the medications. She would like to try the Prolia injections again. Reviewed importance of routine dental care. Advised pt that once she starts the Prolia she will need to continue with the treatment to avoid vertebral fractures from discontinuing the medication. Encouraged adequate calcium and Vitamin D intake. Encouraged some form of routine WB exercise to help with bone density. Patient voiced understanding. Prolia given. Pt tolerated the injection well. Follow up in 6 months for next injection, or sooner should she have any concerns. Skin irritation Encouraged pt to use OTC Hydrocortisone cream once a day for the next 1-2 weeks for irritation of skin. Can continue with Vaseline, Carmex, or some other medicated lip balm throughout the day. Encouraged her to stay hydrated. Recommended vaporizer or humidifier. Pulmonary hypertension, unspecified (CMS/HCC) The patient is seeing a medical translator for this condition, treatment is deferred to that specialist. Correspondence from that specialist and any available testing were reviewed during today's visit. Morbid (severe) obesity due to excess calories (CMS/HCC) - Semaglutide-Weight Management 0.25 MG/0.5ML solution auto-injector; Inject 0.25 mg under the skin 1 (one) time per week Discussed weight loss options with the patient. Cardiovascular benefits of weight loss reviewed. Encouraged portion control, decrease simple sugars and carbohydrates, and gradually increase activity level. Discussed Semaglutide injections with patient. Reviewed how the medication works in the body by decreasing glucagon secretion, slowing gastric emptying, increasing satiety, increasing glucose uptake into muscles, and increasing insulin secretion in response to glucose. Also reviewed potential s/e, including but not limited to headache, GI s/e, pancreatitis, gall bladder disease, and impaired kidney function. Advised it is a once-a-week injection. Reviewed where to give the injection, inject into the subcutaneous tissue of the abdomen, avoiding a 1 inch poarch around the belly button. Patient denies any personal or family history of thyroid cancer or pancreatitis. Can increase the dosage monthly as tolerated to maximize benefit. Goal will be gradual steady weight loss. Advised will need to be seen in the office routinely to reassess tolerability and efficacy of the medication. Body mass index (BMI) 40.0-44.9, adult (CMS/HCC) - Semaglutide-Weight Management 0.25 MG/0.5ML solution auto-injector; Inject 0.25 mg under the skin 1 (one) time per week See above. Essential hypertension (CMS/HCC) BP mildly elevated today. Weight loss and increased activity may help overtime. Will monitor. Paroxysmal atrial fibrillation (CMS/HCC) - Semaglutide-Weight Management 0.25 MG/0.5ML solution auto-injector; Inject 0.25 mg under the skin 1 (one) time per week The patient is seeing a medical translator for this condition, treatment is deferred to that specialist. Correspondence from that specialist and any available testing were reviewed during today's visit. Glucose intolerance Will have patient stop the Metformin at this time. She is starting the Semaglutide and has not perceived benefit from the Metformin. Follow up in about 3 months (around 12/07/2024) for Medication Follow Up. documented in this encounter [facility] note 06-07-2024 Note Date & Type Note Facility 06-07-2024 Note [place] [facility] Consult Note [place] [facility] Reason for visit: Afib HPI: Leslie Lopez is a 73 y.o. year old with past medical history of hypertension, Obesity s/p gastric bypass atrial fibrillation has not been seen by or[facility] hand in the past. She presented to her PCP who thereafter referred to us for establishing care. Her initial diagnosis of A-fib occurred when she was in [place] and was seen in the hospital with food poisoning and was noted to have an EKG that revealed A-fib. Subsequently she was seen by [facility] who placed her on Coumadin but cardioversion [...] she has s (more content not included)... [facility] Consultation note 12-02-2022 Note Date & Type [...] our patients to inform us about any [id number] medications or herbal remedies/nutritional supplements/alternative remedies. 2. [...] options with their primary care provider. [facility] Evaluation note Note Date & Type Note [...] regurgitation Biatrial enlargement documented in this encounter [facility] Evaluation note Note Date & Type Note Facility Evaluation note Diagnosis Glucose intolerance (impaired glucose tolerance)- Primary Impaired glucose tolerance test Routine general medical examination at health care facility Routine general medical examination at a health care facility Hyperlipidemia, unspecified hyperlipidemia type (CMS/HCC) Essential hypertension (CMS/HCC) Unspecified essential hypertension Longstanding persistent atrial fibrillation (CMS/HCC) Breast screening Breast screening, unspecified Morbid obesity (CMS/HCC) Morbid obesity Paroxysmal atrial fibrillation (CMS/HCC)- Primary Atrial fibrillation Glucose intolerance (impaired glucose tolerance) Impaired glucose tolerance test Essential hypertension (CMS/HCC) Unspecified essential hypertension Morbid obesity (CMS/HCC) Morbid obesity Chronic low back pain without sciatica, unspecified back pain laterality Primary osteoarthritis of both knees Routine general medical examination at health care [...] defect Nonrheumatic tricuspid valve regurgitation Biatrial enlargement Age-related osteoporosis without current pathological fracture (CMS/HCC)- Primary Skin irritation Unspecified disorder of skin and subcutaneous tissue Pulmonary hypertension, unspecified (CMS/HCC) Morbid (severe) obesity due to excess calories (CMS/HCC) Body mass index (BMI) 40.0-44.9, adult (CMS/HCC) Essential hypertension (CMS/HCC) Unspecified essential hypertension Paroxysmal atrial fibrillation (CMS/HCC) Atrial fibrillation Glucose intolerance (impaired glucose tolerance) Impaired glucose tolerance test documented in this encounter [facility] History [...] Medicine) Venecia King MD as PCP - [facility] Thursday, NESSA as Licensed Practical Nurse (Family Medicine) Medicare [...] List Items Addressed This Visit Atrial fibrillation ([facility]) Relevant Orders CBC and differential Comprehensive metabolic panel Essential hypertension ([facility]) Our specific goals, for your hypertension, is [...] panel Lipid panel Atrial septal defect See Chief Merchandising Officer in march Nonrheumatic tricuspid valve regurgitation Other Visit Diagnoses Routine general medical examination at the [facility] care facility - Primary Abnormal glucose tolerance [...] fibrillation Associated Problem(s): Atrial septal defect See Chief Merchandising Officer in end march Associated Problem(s): Medicare annual wellness visit, subsequent [...] and content) DATE CREATED AUTHOR 01/14/2018 [facility] DATE CREATED AUTHOR AUTHOR'S ORGANIZ ATION 02/11/2018 [facility] DATE CREATED AUTHOR AUTHOR'S ORGANIZ ATION 02/11/2018 [facility] DATE CREATED AUTHOR AUTHOR'S ORGANIZ ATION 12/18/2021 [facility] DATE CREATED AUTHOR AUTHOR'S ORGANIZ ATION 01/02/2023 [facility] DATE CREATED AUTHOR AUTHOR'S ORGANIZ ATION 06/19/2024 [facility] DATE CREATED AUTHOR AUTHOR'S ORGANIZ ATION 09/11/2024 [facility] EPIC Care Teams (unrecognized sec tion and content) Timber Hewer Relationship Specialty Start Date End Date Venecia King MD [address] [place] [address] PCP - ACO Reach 12/18/22 Venecia King MD [address] [place] [address] PCP - General Family Medicine 12/02/22Thursday, Yandy, IAP DISPLAYS ANALYST [address] [place] [address] Licensed Practical Nurse Family Medicine 10/12/23 Timber Hewer Relationship Specialty Start Date End Date Venecia King MD [address] [place] [address] PCP - ACO Reach 12/18/22 Venecia King MD [address] [place] [address] PCP - General Family Medicine 12/02/22Thursday, Yandy, IAP DISPLAYS ANALYST [address] [place] [address] Licensed Practical Nurse Family Medicine 10/12/23 Timber Hewer Relationship Specialty Start Date End Date Venecia King MD [address] [place] [address] PCP - ACO Reach 12/18/22 Venecia King MD [address] [place] [address] PCP - General Family Medicine 12/02/22Thursday, Yandy, IAP DISPLAYS ANALYST [address] [place] [address] Licensed Practical Nurse Family Medicine 10/12/23 Timber Hewer Relationship Specialty Start Date End Date Veneica King MD [address] [place] [address] PCP - ACO Reach 12/18/22 Venecia King MD [address] [place] [address] PCP - General Family Medicine 12/02/22 Estefani Osman, RN Licensed Practical Nurse Family Medicine 09/02/24 Timber Hewer Relationship Specialty Start Date End Date Venecia King MD [address] [place] [address] PCP - ACO Reach 12/18/22 Venecia King MD [address] [place] [address] PCP - General Family Medicine 12/02/22 Estefani Osman, RN Licensed Practical Nurse Family Medicine 09/02/24 Timber Hewer Relationship Specialty Start Date End Date Venecia King MD [address] [place] [address] PCP - ACO Reach 12/18/22 Venecia King MD [address] [place] [address] PCP - General Family Medicine 12/02/22 Estefani Osman, RN Licensed Practical Nurse Family Medicine 09/02/24 Reason for Visit (unrecogniz ed section and content) Reason Comments Medicare Annual Wellness Visit Subsequen t Reason Comments chapped lips States her lips are painful, swollen, cracking, very red lips. She has used every OTC chap stick she can think of. She has changed her laundry detergent and has not been wearing any perfume to see if that was what was causing the issue but it is still there. FOR RECORDS PERTAINING TO PATIENTS WHO ARE [...] BE BASED ON THE PRIMARY CLINICAL RECORDS. [facility] [employer] [facility]. provides no warranty or guarantee of the accuracy or completeness of information in this document.
--- NOTE | 2024-09-21 12:44 | P.CN_ITS ---
Consult Note: HPI Data of Consult Patient: known to practice within the last 3 years Requesting Physician: Perla Oreilly NP Primary Care Provider: CASSANDRA KING Consult Narrative Reason for consult: f/u Narrative: Leslie Mathis a pleasant 73 year old female presents for evaluation and management of chronic bilateral knee. Patient reports a history of fibromyalgia as well. Today rating pain 8/10 in bilateral knees. Patient is on warfarin and is advised not to take NSAIDs, however she continues to use aleve advil and motrin PRN but has her INR and PT checked. Patient previously reported benefit to duloxetine 90mgs daily but is no longer on it, taking paxil 20mg daily, hx of failure to respond to steroid and durolane injections. since starting pregabalin 50mg BID she has noticed significant improvement in her FM and generalized pain without side effects. recently underwent repeat right and left genicular RFA with >50% improvement ongoing cc:: CC: Perla Oreilly NP Review of Systems ROS Status of ROS 10 or more systems reviewed and unremark able except as noted in history and below Musculoskeletal Reports: joint pain PFSH PFSH Medical History (Updated 07/26/24 @ 14:31 by Dafne Lang) Osteoarthritis ?M19.90 - Unspecified osteoarthritis, unspecified site (ICD-10) Anemia ?D64.9 - Anemia, unspecified (ICD-10) Active asthma ?J45.909 - Unspecified asthma, uncomplicated (ICD-10) Heart valve disease ?I38 - Endocarditis, valve unspecified (ICD-10) Hypertension ?I10 - Essential (primary) hypertension (ICD-10) Irregular heart beat ?I49.9 - Cardiac arrhythmia, unspecified (ICD-10) Surgical History (Updated 07/26/24 @ 14:31 by Dafne Lang) S/P gastric bypass ?Z98.84 - Bariatric surgery status (ICD-10) S/P cholecystectomy ?Z90.49 - Acquired absence of other specified parts of digestive tract (ICD- 10) H/O: hysterectomy ?Z90.710 - Acquired absence of both cervix and uterus (ICD-10) Family History (Updated 07/26/24 @ 14:30 by Dafne Lang) Other Fibromyalgia Social History Smoking status: Never smoker Meds Home Medications and Allergies Home Medications ?Medication ?Instructions ?Recorded ?Confirmed ?Type ascorbic acid (vitamin C) 500 mg 500 mg PO DAILY 01/01/23 08/02/24 History tablet calcium 100 mg capsule mg PO 01/01/23 History carvedilol 12.5 mg tablet 12.5 mg PO BID 01/01/23 08/02/24 History diltiazem HCl 240 mg capsule,24 240 mg PO DAILY 01/01/23 08/02/24 History hr,extended release ferrous sulfate 325 mg (65 mg 325 mg PO DAILY 01/01/23 08/02/24 History iron) tablet (iron) furosemide 20 mg tablet (Lasix) 20 mg PO BID 01/01/23 08/02/24 History ibuprofen 800 mg tablet 800 mg PO QDAY 01/01/23 08/02/24 History metaxalone 800 mg tablet 800 mg PO TID 01/01/23 08/02/24 History metformin 500 mg tablet 500 mg PO DAILY 01/01/23 08/02/24 History warfarin 5 mg tablet 5 mg PO DAILY 01/01/23 08/02/24 History duloxetine 30 mg capsule,delayed 30 mg PO .AM 07/16/23 08/02/24 History release (Cymbalta) duloxetine 60 mg capsule,delayed 60 mg PO .hs #90 caps 08/06/23 08/02/24 Rx release meclizine 25 mg tablet 25 mg PO TID PRN dizziness #20 tabs 08/15/23 08/02/24 Rx pregabalin 50 mg capsule (Lyrica) 50 mg PO BID #60 caps 04/14/24 08/02/24 Rx acetaminophen 300 mg-codeine 30 mg 1 tab PO DAILY PRN pain #7 tabs 06/29/24 08/02/24 Rx tablet Allergies Allergy/AdvReac Type Severity Reaction Status Date / Time Penicillins Allergy resp Verified 07/12/24 08:28 distress Exam Narrative Exam Narrative: generalized myofascial pain on exam Constitutional Documenting provider has reviewed patient's vital signs: yes Common normals: no apparent distress, oriented x3, healthy appearing, alert and well nourished General appearance: cooperative HENMT Common normals: normocephalic, hearing grossly normal bilaterally and moist oral mucous membranes Head and scalp: normocephalic Eye Common normals: PERRL Pupil: PERRL Neck & C-Spine Common normals: full ROM General: normal visual inspection Chest Common normals: inspection of chest normal Respiratory Common normals: normal respiratory effort, no retractions and no use of accessory muscles Back & Pelvis Thoracic spine/upper back: normal to inspection and thoracic ROM normal Lumbar spine/lower back: normal to inspection, pain with ROM and straight leg raise negative bilaterally Sacroiliac joints: SI joints normal Other: positive bilateral facet loading Extremity Common normals: no calf tenderness and no pedal edema Right lower extremity: knee joint (enlarged, pain with weight bearing, limited ROM) Left lower extremity: knee joint (enlarged, pain with weight bearing, limited ROM) Neuro Common normals: oriented x3, CN's II-XII intact bilaterally, moves all extremities, no focal motor deficits, no sensory deficits noted and deep tendon reflexes 2+ bilaterally Sensorium/orientation: alert Motor exam: strength 5/5 throughout and no movement abnormalities noted Psych Common normals: mental status grossly normal, thought process normal, cooperative, affect normal, speech normal and activity/motor behavior normal Speech: normal speech Thought process: normal thought process Results Additional Findings Additional findings: If on a controlled substance or opioids, I have checked an [place]ARRS report on this patient and there are no aberrancies noted in the prescribing history.??If on a controlled substance or opioid a drug screen was completed and reviewed within the last year, and if there has not been a drug screen completed we ordered one today to monitor higher risk, state monitored pain medication use. As part of providing excellent, safe, comprehensive care, the following was completed at our patient's visit: 1. A medication reconciliation and review to ensure accurate knowledge of current/active medications, including asking our patients to inform us about any [id number] medications or herbal remedies/nutritional supplements/alternative remedies. 2. A review to specifically ensure our patients have had annual screening for screening for depression, screening for tobacco use, and screening for unhealthy alcohol use. For concerning screenings had a discussion with the patient, provided patient education, and recommended follow-up with primary care provider when appropriate. If patient noted with a risk of falling, they received education on strength, gait, and balance training to prevent future risk of falling. Assessment and Plan Assessment and Plan (1) Knee osteoarthritis: (2) Fibromyalgia: (3) Chronic pain syndrome: (4) Generalized OA: (5) Muscle spasm: Plan genicular RFAs providing >50% improvement in pain and functional ability ongoing continue current medications, tolerating well without side effects f/u 6 months, sooner if needed
== END 2024-09-21 12:22 | disposition home or self-care (01) ==
LOC: PM 12:22
PROVIDERS: PCP Family Medicine; Visit Provider Nurse Practitioner
DX: M79.7 Fibromyalgia (principal); G89.29 Other chronic pain; M62.838 Other muscle spasm; M15.9 Polyosteoarthritis, unspecified
CPT/HCPCS: G0463

== ENCOUNTER 2024-09-24 09:37 | Outpatient (RCR) | payer MEDICARE, BC, SELFPAY | END 2024-10-21 10:14 | disposition home or self-care (01) | LOC: MM 09:37 | PROVIDERS: PCP Family Medicine; Visit Provider Internal Medicine | DX: Z51.81 Encounter for therapeutic drug level monitoring (principal); Z79.01 Long term (current) use of anticoagulants; I48.91 Unspecified atrial fibrillation | CPT/HCPCS: 85610; G0463 ==

== ENCOUNTER 2024-10-25 05:29 | Outpatient (RCR) | payer MEDICARE, BC, SELFPAY | END 2024-11-23 15:49 | disposition home or self-care (01) | LOC: MM 05:29 | PROVIDERS: PCP Family Medicine; Visit Provider Internal Medicine | DX: Z51.81 Encounter for therapeutic drug level monitoring (principal); Z79.01 Long term (current) use of anticoagulants; I48.91 Unspecified atrial fibrillation | CPT/HCPCS: 85610; G0463 ==

== ENCOUNTER 2024-11-24 04:42 | Outpatient (RCR) | payer MEDICARE, BC, SELFPAY | END 2024-12-23 15:45 | disposition home or self-care (01) | LOC: MM 04:42 | PROVIDERS: PCP Family Medicine; Visit Provider Internal Medicine | DX: Z51.81 Encounter for therapeutic drug level monitoring (principal); Z79.01 Long term (current) use of anticoagulants; I48.91 Unspecified atrial fibrillation | CPT/HCPCS: 85610; G0463 ==

== ENCOUNTER 2024-12-25 08:14 | Outpatient (RCR) | payer MEDICARE, BC, SELFPAY | END 2025-01-19 15:00 | disposition home or self-care (01) | LOC: MM 08:14 | PROVIDERS: PCP Family Medicine; Visit Provider Internal Medicine | DX: Z51.81 Encounter for therapeutic drug level monitoring (principal); Z79.01 Long term (current) use of anticoagulants; I48.91 Unspecified atrial fibrillation ==

== ENCOUNTER 2025-01-24 02:32 | Outpatient (RCR) | payer MEDICARE, BC, SELFPAY | END 2025-02-23 16:42 | disposition home or self-care (01) | LOC: MM 02:32 | PROVIDERS: PCP Family Medicine; Visit Provider Internal Medicine | DX: Z51.81 Encounter for therapeutic drug level monitoring (principal); Z79.01 Long term (current) use of anticoagulants; I48.91 Unspecified atrial fibrillation | CPT/HCPCS: 85610; G0463 ==

== ENCOUNTER 2025-02-02 14:51 | Outpatient (OUT) | payer MEDICARE, BC, SELFPAY ==
--- OUTSIDE RECORDS SUMMARY | 2025-01-26 10:00 | XMS_ITS | Encounter Summary ---
Author Organization [facility] Address [address] [facility] [place] [address] Care Team Providers Care Jtac Name Role Phone Venecia Vyas MD Unavailable Venecia Vyas MD Primary Care Provider [phone] Celeste Chung LPN Unavailable Reason for Visit * Reason Comments Fibromyalgia Pt wants to discuss pain today. Encounter Details Date Type Department Care Team (Late st Contact Info) Description 01/26/2025 10:00 AM EDT Office Visit [facility] [address] [facility] [address] [place] [id number] Ignacia Simeon PA [address] [facility] [address] [place], [place] [id number] Essential hypertension (Primary Dx); Glucose intolerance (impaired glucose tolerance); Fibromyalgia; Primary osteoarthritis of both knees Social History Tobacco Use Types Packs/Day Years Used Date Smoking Tobacco: Never Smokeless Tobacco: Never Alcohol Use Standard Drinks/Week Comments Never 0 (1 standard drink = 0.6 oz pure alcohol) caffeine: chocolate, coffee,soda,tea B1300 Health Literacy Answer Date Recor ded How often do you need to hav e someone help you when you read instructions, pamphlets, or other written material from your doctor or pharmacy? Never 03/16/2024 Humiliation, Afraid, Rape, and Kick questionnair e Answer Date Recorded Within the last year, have y ou been afraid of your partner or ex-partner? No 10/14/2023 Within the last year, have y ou been humiliated or emotionally abused in other ways by your partner or ex-partner? No Within the last year, have y ou been kicked, hit, slapped, or otherwise physically hurt by your partner or ex-partner? No 10/14/2023 Within the last year, have y ou been raped or forced to have any kind of sexual activity by your partner or ex-partner? No 10/14/2023 Social Connection and Isolat ion Panel [NHANES] Answer Date Recorded In a typical week, how many times do you talk on the phone with family, friends, or neighbors? More than three times a week 10/14/2023 How often do you get togethe r with friends or relatives? Three times a week 10/14/2023 How often do you attend chur or confucianist services? 1 to 4 times per year 10/14/2023 Do you belong to any clubs o r organizations such as worship groups, unions, fraternal or athletic groups, or school groups? No 10/14/2023 How often do you attend meet ings of the clubs or organizations you belong to? Never 10/14/2023 Are you , , di vorced, , never , or living with a partner? Never 10/14/2023 AUDIT-C Answer Date Recorded Q1: How often do you have a drink containing alcohol? Never 10/14/2023 Q2: How many drinks containi ng alcohol do you have on a typical day when you are drinking? Patient does not drink Q3: How often do you have si x or more drinks on one occasion? Never 10/14/2023 Overall Financial Resource Strain (CARDIA) Answe r Date Recorded How hard is it for you to pa y for the very basics like food, housing, medical care, and heating? Not hard at all 10/14/2023 PHQ-2 Answer Date Recorded Patient Health Questionnaire-2 Score 0 01/26/2025 [facility] [place] [facility] - Occupational Stress Questionnaire Answer Date Recorded Do you feel stress - tense, restless, nervous, or anxious, or unable to sleep at night because your mind is troubled all the time - these days? Not at all 10/14/2023 Exercise Vital Sign Answer Date Recorde d On average, how many days pe r week do you engage in moderate to strenuous exercise (like a brisk walk)? 0 days 10/14/2023 On average, how many minutes do you engage in exercise at this level? 0 min 10/14/2023 Hunger Vital Sign Answer Date Recorded Within the past 12 months, y ou worried that your food would run out before you got the money to buy more. Never true 10/14/19 24 Within the past 12 months, t he food you bought just didn't last and you didn't have money to get more. Never true 10/14/2023 PRAPARE - Transportation Answer Date Re corded In the past 12 months, has l ack of transportation kept you from medical appointments or from getting medications? No 09/25 In the past 12 months, has l ack of transportation kept you from meetings, work, or from getting things needed for daily living? No 10/14/2023 Housing Stability Vital Sign Answer Cesar e Recorded In the last 12 months, was t here a time when you were not able to pay the mortgage or rent on time? No 10/14/2023 In the last 12 months, how many places have you lived? 1 10/14/2023 In the last 12 months, was t here a time when you did not have a steady place to sleep or slept in a 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 (including now)? No 10/14/2023 Comments Unknown Sex and Gender Information Value Date Recorded Sex Assigned at Not on file Legal Sex Female 6:42 PM EDT Gender Identity Not on file Sexual Orientation Not on file documented as of this encounter Last Filed Vital Signs Vital Sign Reading Time Taken Comments Blood Pressure 124/96 01/26/2025 10:01 AM EDT Pulse 88 01/26/2025 10:01 AM EDT Temperature - - Respiratory Rate 16 01/26/2025 10:01 AM EDT Oxygen Saturation 95% 01/26/2025 10:01 AM EDT Inhaled Oxygen Concentration - - Weight 123 kg (271 lb 9.6 oz) 01/26/2025 10:01 A M EDT Height 165.1 cm (5' 5 ) 01/26/2025 10:01 AM EDT Body Mass Index 45.2 01/26/2025 10:01 AM EDT documented in this encounter Functional Status * Over the past 2 weeks, how often have you been bothered by any of the following problems? Question Answer Date of Assessment Author Little interest or pleasure in doing things Not at all 01/26/2025 9:46 AM EDT [employer] Deal [employer] N Feeling down, depressed, or hopeless Not at all 01/26/2025 9:46 AM EDT [employer]adora Deal [employer] N Patient Health Questionnaire -2 Score 0 01/26/2025 9:46 AM EDT Isadora Deal [employer] N documented as of this encounter Progress Notes * JIMMY Huynh - 01/26/2025 10:00 AM EDT Images from the original note were not included. HPI Fibromyalgia Additional comments: Pt wants to discuss pain today. Last edited by JIMMY Huynh on 01/26/2025 10:10 AM. Subjective Patient ID: Leslie Mathis is a 74 y.o. female who presents for impaired fasting glucose. Leslie is present today for follow up impaired fasting glucose. Denies foot ulcers, hypoglycemia. Admits tingling/numbness in feet but had an ablation and feels it is d/t that. Does not check BS's athome. Dr. Junito Thornton, Pain Management, has done ablations of nerves in her knees that do help fora while. Has pain in both knees, hip, shoulder. She does have an old script from pain mgmt for hydrocodone from 2022 and only took once a day d/t she did not want to be on pain medication but she needs something for pain and is ready to try taking hydrocdone however it needs to be prescribed. Did state however, that she took a hydrocodone and really doesn't think it did anything. Cannot sleep through the night due to pain. Due to the Fibromyalgia, her whole body can thump, or it can be just one joint.States, it is getting me down. Feels likes he cannot get out and go places, or go to events with her family due to impaired mobility. Does use a cane at times and finds it helpful, but feels like she needs one for both sides. Doesn't want to use a walker. States no longer doing Semaglutide injections, just seemed to gain more weight, gave her headaches. Over the past 2 weeks, how often have you been bothered by any of the following problems? Little interest or pleasure in doing things: Not at all (currently on medication) Feeling down, depressed, or hopeless: Not at all (currently on medication) Patient Health Questionnaire-2 Score: 0 Current Outpatient Medications on File Prior to Visit Medication Sig Dispense Refill pregabalin (Lyrica) 50 MG capsule Take 50 mg by mouth in the morning and 50 mg before bedtime. amiodarone (Pacerone) 200 MG tablet Take 200 mg by mouth Daily CALCIUM MAGNESIUM ZINC PO Take 1 tablet by mouth Daily carvedilol (Coreg) 12.5 MG tablet TAKE 1 TABLET TWICE DAILY WITH FOOD 200 tablet 3 dilTIAZem CD (Cardizem CD) 240 MG 24 hr capsule TAKE 1 CAPSULE EVERY DAY 90 capsule 0 furosemide (Lasix) 20 MG tablet TAKE 1 TABLET TWICE DAILY 180 tablet 3 Glucosamine-Chondroitin (OSTEO BI-FLEX REGULAR STRENGTH PO) Take 1 tablet by mouth Daily ibuprofen 800 MG tablet Take 1 tablet (800 mg) by mouth every 8 (eight) hours if needed for moderate pain 90 tablet 0 MAGNESIUM GLYCINATE ADVANCED PO Take 1 tablet [...] CR (Klor-Con M10) 10 MEQ ER tablet TAKE 1 TABLET EVERY DAY (DO NOT CRUSH OR CHEW) 90 tablet 3 warfarin (Coumadin) 5 MG tablet TAKE 1 TABLET ONE TIME DAILY, EXCEPT TAKE 2 TABLETS ON SUNDAYS AND WEDNESDAYS 120 tablet 3 [DISCONTINUED] denosumab (Prolia) 60 MG/ML solution prefilled syringe Inject 1 mL (60 mg) under theskin 1 (one) time for 1 dose [DISCONTINUED] dilTIAZem CD (Cardizem CD) 240 MG 24 hr capsule TAKE 1 CAPSULE EVERY DAY 100 capsule3 [DISCONTINUED] SEMAGLUTIDE, 1 MG/DOSE, SC Inject 0.25 mg under the skin 1 (one) time per week (Patient not taking: Reported on 01/26/2025) [DISCONTINUED] Semaglutide-Weight Management 0.25 MG/0.5ML solution auto- injector Inject 0.25 mg under the skin 1 (one) time per week (Patient not taking: Reported on 10/20/2024) No current facility-administered medications on file prior to visit. I have reviewed and reconciled the history and medication list with the patient today. Allergies Allergen Reactions Penicillin G Shortness of breath Milnacipran Hcl Other Semaglutide Headache Social History Tobacco Use Smoking status: Never Smokeless tobacco: Never Vaping Use Vaping status: Never Used Substance Use Topics Alcohol use: Never Comment: caffeine: chocolate, coffee,soda,tea Family History Problem Relation Name Age of Onset Cancer Mother Heart disease Mother Mental illness Mother Diabetes Sibling Hypertension Sibling Past Medical History: Diagnosis Date A-fib (HCC) 2017 Anemia Fibromyalgia History of being hospitalized 11/2017 food poisoning/a-fib Lexiscan was negative for ischemia EF 61% 02/08/2018 Osteopenia 04/26/2019 Dexa scan shows Osteopenia in hip Osteopenia 01/08/2022 Dexa Shows Osteopenia - Moderate Fracture Risk. -2.6% worsning since prior study Right knee sprain Past Surgical History: Procedure Laterality Date CHOLECYSTECTOMY COLONOSCOPY 1999 Dr. Shelton Has history of hemorrhoids EGD GASTRIC BYPASS 2005 HYSTERECTOMY IR ABLATION NERVE Right 06/16/2023 Knee - RFA Genicular Nerve IR NERVE BLOCK OTHER PERIPHERAL Bilateral 04/14/2023 Genicular Nerve OTHER SURGICAL HISTORY 2010 KENALOG INJECTION;Disease:RIGHT KNEE SPRAIN Visit Vitals BP (!) 124/96 Pulse 88 Resp 16 Ht 5' 5 Wt 271 lb 9.6 oz SpO2 95% BMI 45.20 kg/m?? Smoking Status Never BSA 2.38 m?? Review of Systems Constitutional: Negative for chills, fatigue and fever. Respiratory: Negative for cough, shortness of breath and wheezing. Cardiovascular: Negative for chest pain, palpitations and leg swelling. Gastrointestinal: Negative for abdominal pain, constipation, diarrhea, nausea and vomiting. Musculoskeletal: Positive for arthralgias, gait problem and myalgias. Skin: Negative for rash. Objective Physical Exam Constitutional: General: She is not in acute distress. Appearance: She is well-developed. She is obese. HENT: Head: Normocephalic and atraumatic. Eyes: General: No scleral icterus. Conjunctiva/sclera: Conjunctivae normal. Cardiovascular: Rate and Rhythm: Normal rate and regular rhythm. Heart sounds: Normal heart sounds. No murmur heard. Pulmonary: Effort: Pulmonary effort is normal. No respiratory distress. Breath sounds: Normal breath sounds. No wheezing, rhonchi or rales. Skin: General: Skin is warm and dry. Neurological: General: No focal deficit present. Mental Status: She is alert and oriented to person, place, and time. Psychiatric: Mood and Affect: Mood normal. Behavior: Behavior normal. Office Visit on 01/26/2025 Component Date Value Ref Range Status Hemoglobin A1C 01/26/2025 5.8 Final Assessment/Plan Diagnoses and all orders for this visit: Essential hypertension BP was mildly elevated today. Will continue with current medications as prescribed for now. Will continue to monitor. Continue to follow up with Cardiology as per their instruction. Glucose intolerance (impaired glucose tolerance) - POCT Glycated hemoglobin, total Advised pt that her HgbA1c has improved to 5.8. Continue to aim for healthy diet. Recheck in 6 months. Fibromyalgia - DULoxetine (Cymbalta) [address] capsule; Take 1 capsule (30 mg) by mouth in the morning and 1 capsule (30 mg) before bedtime. Do not crush or chew. Encouraged her to discuss the Lyrica dosage with pain management, may be beneficial to increase thedosage. She agrees to do so. Will have patient start Cymbalta as it may help with her mood and to some extent her pain. She was on it for a month in the past and is not sure it helped. Advised her she may not have gotten to a therapeutic dosage. Will plan to increase pt to 60 mg BID over time and see if there is any relief in her pain. Osteoarthritis of both knees Good discussion with patient today regarding her physical limitations. Encouraged her to consider using a walker to prevent falls, increase stability, and increase mobility. This would allow her to safely attend more events with her family. She agrees to consider doing so. Follow up in about 4 weeks (around 02/23/2025) for Medication Follow Up. documented in this encounter Plan of Treatment Upcoming Encounters Date Type Department Care Team (Late st Contact Info) Description 02/28/2025 10:30 AM EDT Office Visit [facility] [address] [facility] [address] [place] [address] Ignacia Simeon, PA [address] [facility] [address] [place] [address] documented as of this encounter Procedures Procedure Name Priority Date/Time Associated Diagnosis Comments POCT GLYCATED HEMOGLOBIN, TOTAL Routine 01/26/2025 10:00 AM EDT Glucose intolerance (impaired glucose tolerance) documented in this encounter Results * (ABNORMAL) POCT Glycated hemoglobin, total (01/26/2025 10:00 AM EDT) Hemoglobin A1C 5.8 Blood 01/26/2025 10:0 0 AM EDT Ignacia MARQUEZ POINT OF CARE TEST ENTER/EDIT ORDERABLES Final Result documented in this encounter Visit Diagnoses Diagnosis Essential hypertension- Primary Unspecified essential hypertension Glucose intolerance (impaired glucose tolerance) Impaired glucose tolerance test Fibromyalgia Unspecified myalgia and myositis Primary osteoarthritis of both knees documented in this encounter Additional Health Concerns Assessment Noted Time A fall risk assessment has been complete d for the patient 10/14/2023 9:55 AM EDT documented as of this encounter Care Teams Jtac Relationship Specialty Start Date End Date Venecia Vyas MD [address] [facility] [address] [place] [address] PCP - ACO Reach 12/18/22 Venecia Vyas MD [address] [facility] [address] [place] [address] PCP - General Family Medicine 12/02/22 Celeste Chung LPN [address] [facility] [address] [place] [address] 10/14/24 documented as of this encounter
--- OUTSIDE RECORDS SUMMARY | 2025-02-02 14:51 | XMS_ITS | Continuity of Care Document ---
Author Organization [facility]. If a dditional information is needed, contact Health Information Management at [phone] Address [address] [place] [address] Phone Care Team Providers Care Lumber Stacker Driver Name Role Phone Unavailable Unavailable Unavailable Unavailable Unavailable Unavailable Unavailable Unavailable Unavailable Problems Gastroenteritis Onset:26-Nov-2017 Shalonda Chen MD Rapid atrial fibrillation Onset:26-Nov-2017 Shalonda Chen MD Mental Status Cognitive function finding 26-Nov-2017 Functional Status Functional finding 26-Nov-2017 Allergies and Adverse Reactions Penicillins(Allergy) Onset: 26-Nov-2017 Reaction:CAN'T BREATHE Penicillin V Potassium 500 M G Oral Tablet(Allergy) Onset: 26-Nov-2017 Reaction:Info Not Available Medications metFORMIN hydrochloride 500 MG Oral Tablet [Glucophage];500 MILLIGRAM PO PC BK DIN Start:27-Nov-2017 Comments:500 MG PO PC BK DIN 24 HR dilTIAZem hydrochlorid e 240 MG Extended Release Oral Capsule;240 MILLIGRAM PO DAILY Start:27-Nov-2017 Comments:240 MG PO DAILY apixaban 5 MG Oral Tablet [Eliquis];5 MILLIGRAM PO BID Start:27-Nov-2017 Comments:5 MG PO BID metaxalone 800 MG Oral Table t;800 MILLIGRAM PO TID Start:26-Nov-2017 Comments:800 MG PO TID As Needed for CRAMPS aspirin 81 MG Chewable Table t;81 MILLIGRAM PO DAILY Start:26-Nov-2017 Comments:81 MG PO DAILY PARoxetine 20 MG (as PARoxet ine hydrochloride 22.76 MG ) Oral Tablet;20 MILLIGRAM PO DAILY Start:26-Nov-2017 Comments:20 MG PO DAILY ibuprofen 800 MG Oral Tablet ;800 MILLIGRAM PO TID PRN Start:26-Nov-2017 Status:Discontinued Comments:800 MG PO TID PRN As Needed for PAIN SCALE 4-6 metFORMIN hydrochloride 500 MG Oral Tablet [Glucophage];PO C BK Start:26-Nov-2017 Status:Discontinued Comments:PO C BK metFORMIN hydrochloride 500 MG Oral Tablet;500 MG Oral , not defined Quantity:90 HOPE BURNS III Comments:500 MG Oral , not d efined PARoxetine 20 MG (as PARoxet ine hydrochloride 22.76 MG ) Oral Tablet;20 MG Oral , not defined Quantity:90 HOPE BURNS III Comments:20 MG Oral , not de fined Social History Smoking Status Never smoked tobacco Recorded: 26-Nov-2017
--- OUTSIDE RECORDS SUMMARY | 2025-02-02 14:52 | XMS_ITS | Encounter Summary ---
Author Organization [facility] Address [address] [place] [address] Care Team Providers Care Clinical Laboratory Director Name Role Phone Venecia Vyas MD Unavailable Venecia Vyas MD Primary Care Provider [phone] Celeste Chung LPN Unavailable Encounter Details Date Type Department Care Team (Late st Contact Info) Description 11/25/2024 Abstract [facility] [address] [facility] 110 [place] [id number] Venecia Vyas MD [address] [facility] 110 [place] [address] Social History Tobacco Use Types Packs/Day Years [...] How often do you attend chur or yazdanism services? 1 to 4 times per year 10/14/2023 Do you belong to any clubs o r organizations such as methodist groups, unions, fraternal or athletic groups, or [...] Date Recorded Patient Health Questionnaire-2 Score 0 04/04/2024 [facility] of Occupat ional Health - Occupational Stress [...] place to sleep or slept in a senior care (including now)? No 10/14/2023 Comments Unknown Sex and Gender Information Value Date Recorded Sex Assigned at Not on file Legal Sex Female 6:42 PM EDT Gender Identity Not on file Sexual Orientation Not on file documented as of this encounter Plan of Treatment Upcoming Encounters Date Type Department Care Team (Late st Contact Info) Description 02/28/2025 10:30 AM EDT Office Visit [facility] 112 [facility] 110 [place] [address] Ignacia Simeon PA [address] [facility] [address] [place] [address] documented as of this encounter Visit Diagnoses Not on filedocumented in this encounter Additional Health Concerns Assessment Noted Time A fall risk assessment has been complete d for the patient 10/14/2023 9:55 AM EDT documented as of this encounter Care Teams Clinical Laboratory Director Relationship Specialty Start Date End Date Venecia Vyas MD [address] [facility] [address] [place] [address] PCP - ACO Reach 12/18/22 Venecia Vyas MD [address] [address] PCP - General Family Medicine 12/02/22 Celeste Chung LPN [address] [address] 10/14/24 documented as of this encounter
--- OUTSIDE RECORDS SUMMARY | 2025-02-02 14:52 | XMS_ITS | Encounter Summary ---
Author Organization [facility] Address [address] [place] [address] Care Team Providers Care Acetylene Torch Operator Name Role Phone Venecia Vyas MD Unavailable Venecia Vays MD Primary Care Provider [phone] Estefani Osman RN Unavailable [phone] Celeste Chung LPN Unavailable Encounter Details Date Type Department Care Team (Late st Contact Info) Description 09/12/2024 Abstract [facility] 112 [facility] 110 [place] [address] Venecia Vyas MD 112 [facility] 110 [place] [address] Social History Tobacco Use Types [...] How often do you attend chur or presybeterian services? 1 to 4 times per year 10/14/2023 Do you belong to any clubs o r organizations such as orthodoxy groups, unions, fraternal or athletic groups, or [...] Recorded Patient Health Questionnaire-2 Score 0 04/04/2024 [facility] of Occupat ionnm Health - Occupational Stress Questionnaire Answer Date [...] place to sleep or slept in a longterm (including now)? No 10/14/2023 Comments Unknown Sex and Gender Information Value Date Recorded Sex Assigned at Not on file Legal Sex Female 6:42 PM EDT Gender Identity Not on file Sexual Orientation Not on file documented as of this encounter Plan of Treatment Upcoming Encounters Date Type Department Care Team (Late st Contact Info) Description 02/28/2025 10:30 AM EDT Office Visit [facility] [address] [facility] 110 [place] [address] Ignacia Simeon PA [address] [facility] 110 [place] [address] documented as of this encounter Visit Diagnoses Not on filedocumented in this encounter Additional Health Concerns Assessment Noted Time A fall risk assessment has been complete d for the patient 10/14/2023 9:55 AM EDT documented as of this encounter Care Teams Acetylene Torch Operator Relationship Specialty Start Date End Date Venecia Vyas MD [address] [facility] 110 [place] [address] PCP - ACO Reach 12/18/22 Venecia Vyas MD [address] [facility] [address] [place], [place] [address] PCP - General Family Medicine 12/02/22 Estefani Osman, RN [address] [place] [address] Licensed Practical Nurse Family Medicine 09/02/2410/14 Celeste Chung LPN [address] [facility] [address] [place] [address] 10/14/24 documented as of this encounter
--- OUTSIDE RECORDS SUMMARY | 2025-02-02 14:52 | XMS_ITS ---
Author Organization [facility] Address [address] [place] [address] Care Team Providers Care Window Caser Name Role Phone Venecia Vyas MD Unavailable Venecia Vyas MD Primary Care Provider [phone] Celeste Chung LPN Unavailable Chronic Care Management (CCM) Status:Enrolled (Active) Start date:10/12/2023 Enrollment date:10/14/2023 Enrollment reason:Identified as high-risk Overview Please assess for Care Management needs. 10/14/23, 10:07 AM - Yandythursday, NESSA- Patient gives verbal consent to be enrolled in CCM Program and understands there could be a bill for this service. Case Team Name Relationship Phone Celeste Chung LPN(Responsible Staff) [phone] Continued Care and Services Coordination
--- OUTSIDE RECORDS SUMMARY | 2025-02-02 14:52 | XMS_ITS | Encounter Summary ---
Author Organization [facility] Address [address] [place] [address] Care Team Providers Care Porter Sample Case Name Role Phone Venecia Vyas MD Unavailable Venecia Vyas MD Primary Care Provider [phone] Celeste Chung LPN Unavailable Encounter Details Date Type Department Care Team (Late st Contact Info) Description 01/12/2025 Abstract [facility] [address] [facility] 110 [place] [id number] Venecia Vyas MD [address] [facility] 110 [place] [address] Social History Tobacco Use Types [...] How often do you attend chur or synagogue services? 1 to 4 times per year 10/14/2023 Do you belong to any clubs o r organizations such as anabaptist groups, unions, fraternal or athletic groups, or [...] Recorded Patient Health Questionnaire-2 Score 0 04/04/2024 [facility] of Occupat ional Health - Occupational Stress [...] place to sleep or slept in a fdc (including now)? No 10/14/2023 Comments Unknown Sex and Gender Information Value Date Recorded Sex Assigned at Not on file Legal Sex Female 6:42 PM EDT Gender Identity Not on file Sexual Orientation Not on file documented as of this encounter Plan of Treatment Upcoming Encounters Date Type Department Care Team (Late st Contact Info) Description 02/28/2025 10:30 AM EDT Office Visit [facility] 112 [facility] 110 [place] [address] Ignacia Simeon PA [address] [facility] 110 [place] [address] documented as of this encounter Visit Diagnoses Not on filedocumented in this encounter Additional Health Concerns Assessment Noted Time A fall risk assessment has been complete d for the patient 10/14/2023 9:55 AM EDT documented as of this encounter Care Teams Porter Sample Case Relationship Specialty Start Date End Date Venecia Vyas MD [address] [facility] 110 [place] [address] PCP - ACO Reach 12/18/22 Venecia Vyas MD [address] [address] PCP - General Family Medicine 12/02/22 Celeste Chung LPN [address] [address] 10/14/24 documented as of this encounter
--- OUTSIDE RECORDS SUMMARY | 2025-02-02 14:52 | XMS_ITS | Encounter Summary ---
Author Organization [facility] Address [address] [place] [address] Care Team Providers Care Tutoring Assistant Name Role Phone Venecia Vyas MD Unavailable Venecia Vyas MD Primary Care Provider [phone] Celeste Chung LPN Unavailable Encounter Details Date Type Department Care Team (Late st Contact Info) Description 12/20/2024 Abstract [facility] [address] [facility] 110 [place] [id number] Venecia Vyas MD [address] [facility] 110 [place] [address] Social History Tobacco Use Types [...] How often do you attend chur or alevism services? 1 to 4 times per year 10/14/2023 Do you belong to any clubs o r organizations such as synagogue groups, unions, fraternal or athletic groups, or [...] Recorded Patient Health Questionnaire-2 Score 0 04/04/2024 [facility] of Occupat ional Health - Occupational Stress [...] place to sleep or slept in a mcfp (including now)? No 10/14/2023 Comments Unknown Sex and Gender Information Value Date Recorded Sex Assigned at Not on file Legal Sex Female 6:42 PM EDT Gender Identity Not on file Sexual Orientation Not on file documented as of this encounter Plan of Treatment Upcoming Encounters Date Type Department Care Team (Late st Contact Info) Description 02/28/2025 10:30 AM EDT Office Visit [facility] 112 [facility] 110 [place] [address] Ignacia Simeon PA [address] [facility] 110 [place] [address] documented as of this encounter Visit Diagnoses Not on filedocumented in this encounter Additional Health Concerns Assessment Noted Time A fall risk assessment has been complete d for the patient 10/14/2023 9:55 AM EDT documented as of this encounter Care Teams Tutoring Assistant Relationship Specialty Start Date End Date Venecia Vyas MD [address] [facility] 110 [place] [address] PCP - ACO Reach 12/18/22 Venecia Vyas MD [address] [place] [address] [address] PCP - General Family Medicine 12/02/22 Celeste Chung LPN [address] [address] 10/14/24 documented as of this encounter
--- OUTSIDE RECORDS SUMMARY | 2025-02-02 14:53 | XMS_ITS | Encounter Summary ---
Author Organization [facility] Address [address] [facility] [place] [address] Care Team Providers Care Compensation Programs Manager Name Role Phone Venecia Vyas MD Unavailable Venecia Vyas MD Primary Care Provider [phone] Celeste Chung LPN Unavailable Reason for Visit * Reason Comments Med Refill Encounter Details Date Type Department Care Team (Late st Contact Info) Description 01/25/2025 Refill [facility] [address] [facility] 110 [place] [address] Venecia Vyas MD 112 [facility] 110 [place] [address] Essential hypertension Social History Tobacco Use Types Packs/Day Years [...] How often do you attend chur or christianity services? 1 to 4 times per year [...] Recorded Patient Health Questionnaire-2 Score 0 01/26/2025 [facility] of Occupat ional Health - Occupational [...] 02/28/2025 10:30 AM EDT Office Visit [facility] [address] [facility] 110 [place] [address] Ignacia Simeon PA [address] [facility] 110 [place] [address] documented as of this encounter Visit Diagnoses Diagnosis Essential hypertension Unspecified essential hypertension documented in this encounter Additional Health Concerns Assessment Noted Time A fall risk assessment has been complete d for the patient 10/14/2023 9:55 AM EDT documented as of this encounter Care Teams Compensation Programs Manager Relationship Specialty Start Date End Date Venecia Vyas MD [address] [facility] 110 [place] [address] PCP - ACO Reach 12/18/22 Venecia Vyas MD [address] [facility] 110 [place] [address] PCP - General Family Medicine 12/02/22 Celeste Chung LPN [address] [address] 10/14/24 documented as of this encounter
--- OUTSIDE RECORDS SUMMARY | 2025-02-02 14:53 | XMS_ITS | Patient Health Record ---
Author Organization [facility] Billing Info Address [address] [place], [place] [id number] Support Name Relationship Address Phone Leslie Mathis Guarantor Unknown [phone] Allergies Allergen (clinical drug ingredient) Drug/Non Drug Allergy documented on EMR Reaction Allergy Type Onset Date Status Penicillin Unknown Drug Allergy Active Reason For Referral No Information Medications Medication SIG (Take, Route, Fr equency, Duration) Notes Start Date End Date Status Metformin HCl 500 MG Oral for 90 Active Paroxetine HCl 20 MG Oral for 90 Active Immunizations Vaccine Route Administration Date Status Comme nts PNEUMOCOCCAL - 23 POLY (PNEU MOVAX 23) Unknown 11/26/2017 Refused PNEUMOCOCCAL 13 CONJ ([id number]) Unknown 11/26/2017 Ref used zFLU 3V (FLUAD), 65 YRS+, NO PRES - ALL PAYORS Unknown 04/26/2017 Administered Social History Tobacco Use: Social History Observation Description Date Details (start date - stop date) Never Smoker NA - NA Tobacco Status: Question Answer Notes Patient is a never smoker Plan Of Treatment No Information Insurance Providers Payer Name Payer Address Payer Phone Subscriber Number Group Number Insured Name Patient Relationship to Insured Coverage Start Date Coverage End Date MED[place]ARE [place] PART B [address] [facility] JIMMY CENTENO [id number] Leslie Mathis Self - patient is the insured 8 [facility] MEDICARE SUPPLEMENT [address] [address] [place], [place] [id number] Ureña Self - patient is the insured 8 Medical (General) History Medical History History ICD Code Diabetes mellitus Anxiety Surgical History Surgery Date(Month/Year) cholecystectomy hysterectomy Gastric bypass Hospitalization History Reason Date(Month/Year) see above
--- OUTSIDE RECORDS SUMMARY | 2025-02-02 14:53 | XMS_ITS | Encounter Summary ---
Author Organization [facility] Address [address] [place] [address] Care Team Providers Care Melter Helper Name Role Phone Venecia Vyas MD Unavailable Venecia Vyas MD Primary Care Provider [phone] Celeste Chung LPN Unavailable Encounter Details Date Type Department Care Team (Late st Contact Info) Description 01/24/2025 Abstract [facility] [address] [facility] 110 [place] [phone] Venecia Vyas MD [address] [place] [facility] 110 [place] [address] Social History Tobacco Use Types [...] How often do you attend chur or mandaen services? 1 to 4 times per year 10/14/2023 Do you belong to any clubs o r organizations such as sikh groups, unions, fraternal or athletic groups, or [...] Recorded Patient Health Questionnaire-2 Score 0 01/26/2025 [facility] of Occupat ional Health - Occupational [...] on file documented as of this encounter Functional Status * Over the [...] LP N documented as of this encounter Plan of Treatment Upcoming Encounters Date Type Department Care Team (Late st Contact Info) Description 02/28/2025 10:30 AM EDT Office Visit [facility] [address] [facility] 110 [place] [address] Ignacia Simeon PA [address] [facility] [address] [place] [address] documented as of this encounter Visit Diagnoses Not on filedocumented in this encounter Additional Health Concerns Assessment Noted Time A fall risk assessment has been complete d for the patient 10/14/2023 9:55 AM EDT documented as of this encounter Care Teams Melter Helper Relationship Specialty Start Date End Date Venecia Vyas MD [address] [facility] [address] [place] [address] PCP - ACO Reach 12/18/22 Venecia Vyas MD [address] [facility] [address] [place] [address] PCP - General Family Medicine 12/02/22 Celeste Chung LPN [address] [facility] 110 [place] [address] 10/14/24 documented as of this encounter
--- OUTSIDE RECORDS SUMMARY | 2025-02-02 14:53 | XMS_ITS | Encounter Summary ---
Author Organization [facility] Address [address] [place] [address] Care Team Providers Care Ground Crewman Name Role Phone Venecia Vyas MD Unavailable Venecia Vyas MD Primary Care Provider [phone] Celeste Chung LPN Unavailable Encounter Details Date Type Department Care Team (Late st Contact Info) Description 11/16/2024 Abstract [facility] [address] [facility] 110 [place] [address] Venecia Vyas MD [address] [place] [facility] 110 [place] [address] Social History Tobacco Use Types [...] How often do you attend chur or episcopalian services? 1 to 4 times per year 10/14/2023 Do you belong to any clubs o r organizations such as episcopal groups, unions, fraternal or athletic groups, or [...] Recorded Patient Health Questionnaire-2 Score 0 04/04/2024 [facility] of Occupat ional Health - [...] place to sleep or slept in a fci (including now)? No 10/14/2023 Comments Unknown Sex and Gender Information Value Date Recorded Sex Assigned at Not on file Legal Sex Female 6:42 PM EDT Gender Identity Not on file Sexual Orientation Not on file documented as of this encounter Plan of Treatment Upcoming Encounters Date Type Department Care Team (Late st Contact Info) Description 02/28/2025 10:30 AM EDT Office Visit [facility] 112 [facility] 110 [place] [address] Ignacia Simeon PA [address] [place] [facility] 110 [place] [address] documented as of this encounter Visit Diagnoses Not on filedocumented in this encounter Additional Health Concerns Assessment Noted Time A fall risk assessment has been complete d for the patient 10/14/2023 9:55 AM EDT documented as of this encounter Care Teams Ground Crewman Relationship Specialty Start Date End Date Venecia Vyas MD [address] [facility] 110 [place] [address] PCP - ACO Reach 12/18/22 Venecia Vyas MD [address] [address] PCP - General Family Medicine 12/02/22 Celeste Chung LPN [address] [address] 10/14/24 documented as of this encounter
--- OUTSIDE RECORDS SUMMARY | 2025-02-02 14:53 | XMS_ITS | Encounter Summary ---
Author Organization [facility] Address [address] [place] [address] Care Team Providers Care Computer Networking Instructor Name Role Phone Venecia Vyas MD Unavailable Venecia Vyas MD Primary Care Provider [phone] Celeste Chung LPN Unavailable Encounter Details Date Type Department Care Team (Late st Contact Info) Description 01/26/2025 Bam[employer]ingStampo flowsheet [facility] [address] [facility] 110 [place] [address] Ignacia Simeon PA [address] [facility] 110 [place], [place] [address] Social History Tobacco Use Types Packs/Day Years [...] 10/14/2023 How often do you attend chur ch or rastafari services? 1 to 4 times per year 10/14/2023 Do you belong to any clubs o r organizations such as zoroastrianism groups, unions, fraternal or athletic groups, or [...] Recorded Patient Health Questionnaire-2 Score 0 01/26/2025 [facility] of Occupat ional Health - Occupational [...] place to sleep or slept in a long term (including now)? No 10/14/2023 Comments Unknown Sex and Gender Information Value Date Recorded Sex Assigned at Not on file Legal Sex Female 6:42 PM EDT Gender Identity Not on file Sexual Orientation Not on file documented as of this encounter Plan of Treatment Upcoming Encounters Date Type Department Care Team (Late st Contact Info) Description 02/28/2025 10:30 AM EDT Office Visit [facility] [address] [facility] 110 [place] [address] Ignacia Simeon PA [address] [facility] 110 [place] [address] documented as of this encounter Visit Diagnoses Not on filedocumented in this encounter Additional Health Concerns Assessment Noted Time A fall risk assessment has been complete d for the patient 10/14/2023 9:55 AM EDT documented as of this encounter Care Teams Computer Networking Instructor Relationship Specialty Start Date End Date Venecia Vyas MD [address] [facility] 110 [place] [address] PCP - ACO Reach 12/18/22 Venecia Vyas MD [address] [id number] PCP - General Family Medicine 12/02/22 Celeste Chugn LPN [address] [address] 10/14/24 documented as of this encounter
--- OUTSIDE RECORDS SUMMARY | 2025-02-02 14:53 | XMS_ITS | Clinical Summary ---
Author Organization [facility] Address [address] [facility] [place] [address] Care Team Providers Care Microbiology Coordinator Name Role Phone Venecia King MD Unavailable Venecia King MD Primary Care Provider [phone] Celeste Chung LPN Unavailable Allergies Active Allergy Reactions Criticality Noted Date Comments Milnacipran Hcl Other 03/20/2023 Penicillin G Shortness of breath High 03/20/2023 Semaglutide Headache Low 01/26/2025 Medications meclizine (Antivert) 25 MG tablet Take 25 mg by mouth 3 (three) times a day as needed for dizziness Active MAGNESIUM GLYCINATE ADVANCED PO Take 1 tablet by mouth Daily Active CALCIUM MAGNESIUM ZINC PO Take 1 tablet by mouth Daily Active Glucosamine-Cho ndroitin (OSTEO BI-FLEX REGULAR STRENGTH PO) Take 1 tablet by mouth Daily Active furosemide (Lasix) 20 MG tabletIndicatio ns:Edema, unspecified type TAKE 1 TABLET TWICE DAILY 180 tablet 3 05/09/20 24 Active carvedilol (Coreg) 12.5 MG tabletIndicatio ns:Essential hypertension TAKE 1 TABLET TWICE DAILY WITH FOOD 200 tablet 3 06/06/20 24 Active metaxalone (Skelaxin) 800 MG tabletIndicatio ns:Chronic low back pain without sciatica, unspecified back pain laterality TAKE 1 TABLET BY MOUTH IN THE MORNING, IN THE EVENING AND BEFORE BEDTIME 90 tablet 3 06/20/20 24 Active warfarin (Coumadin) 5 MG tabletIndicatio ns:Longstanding persistent atrial fibrillation (HCC) TAKE 1 TABLET ONE TIME DAILY, EXCEPT TAKE 2 TABLETS ON SUNDAYS AND WEDNESDAYS 120 tablet 3 07/21/20 24 Active PARoxetine (Paxil) 20 MG tabletIndicatio ns:Depressive disorder TAKE 1 TABLET EVERY MORNING 90 tablet 3 08/31/19 25 Active pregabalin (Lyrica) 50 MG capsule Take 50 mg by mouth in the morning and 50 mg before bedtime. 08/12/19 25 Active amiodarone (Pacerone) 200 MG tablet Take 200 mg by mouth Daily 08/16/19 25 Active potassium chloride CR (Klor-Con M10) 10 MEQ ER tabletIndicatio ns:Localized swelling of both lower legs TAKE 1 TABLET EVERY DAY (DO NOT CRUSH OR CHEW) 90 tablet 3 01/10/20 25 Active ibuprofen 800 MG tabletIndicatio ns:Fibromyalgia ,Lumbar strain, initial encounter Take 1 tablet (800 mg) by mouth every 8 (eight) hours if needed for moderate pain 90 tablet 01/17/20 25 Active dilTIAZem CD (Cardizem CD) 240 MG 24 hr capsuleIndicati ons:Essential hypertension TAKE 1 CAPSULE EVERY DAY 90 capsule 01/26/20 25 Active DULoxetine (Cymbalta) [address] capsuleIndicati ons:Fibromyalgi a Take 1 capsule (30 mg) by mouth in the morning and 1 capsule (30 mg) before bedtime. Do not crush or chew. 60 capsule 2 01/27/20 25 Active potassium chloride CR (Klor-Con M10) 10 MEQ ER tabletIndicatio ns:Localized swelling of both lower legs Take 1 tablet (10 mEq) by mouth Daily Do not crush or chew. 90 tablet 3 03/07/20 24 025 Discontinued ibuprofen 800 MG tablet Take 800 mg by mouth every 8 (eight) hours if needed for moderate pain 025 Discontinued(R eorder) dilTIAZem CD (Cardizem CD) 240 MG 24 hr capsuleIndicati ons:Essential hypertension TAKE 1 CAPSULE EVERY DAY 100 capsule 3 04/06/20 24 025 Discontinued Semaglutide-Lio ght Management 0.25 MG/0.5ML solution auto-injectorIn dications:Morbi d (severe) obesity due to excess calories ([facility]),Body mass index (BMI) 40.0-44.9, adult ([facility]),Parox ysmal atrial fibrillation (HCC) Inject 0.25 mg under the skin 1 (one) time per week 09/09/19 025 Discontinued denosumab (Prolia) 60 MG/ML solution prefilled syringeIndicati ons:Age-related osteoporosis without current pathological fracture Inject 1 mL (60 mg) under the skin 1 (one) time for 1 dose 09/09/19 025 Discontinued(C ost of medication) SEMAGLUTIDE, 1 MG/DOSE, SC Inject 0.25 mg under the skin 1 (one) time per week 09/09/19 025 Discontinued(S shawn effects) Active Problems Problem Noted Date Diagnosed Date Age-related osteoporosis wit hout current pathological fracture 09/09/2024 Pulmonary hypertension, unspecified 09/09/2024 Paroxysmal atrial fibrillation 06/07/2024 Atrial septal defect ([facility]) 04/04/2024 Assessment & Plan (04/04/2024 10:25 AM EDT): See Security Sme in end of March Nonrheumatic tricuspid valve regurgitation 04/04 Dyspnea on exertion 03/07/2024 Neoplasm of uncertain behavior of skin of hand 0 03/07/2024 Localized swelling of both lower legs 03/07/2024 Body mass index (BMI) 40.0-44.9, adult Other thrombophilia ([facility]) 03/07/2024 Elevated LDL cholesterol level 03/07/2024 Breast screening 03/24/2023 Assessment & Plan (03/24/2023 3:55 PM EDT): Mammo ordered Adjustment disorder in remission 02/23/2023 Asthmatic bronchitis 02/23/2023 Decreased estrogen level 02/23/2023 Depressive disorder 02/23/2023 Essential hypertension 02/23/2023 Assessment & Plan (04/04/2024 10:15 AM EDT): Our specific goals, for your hypertension, is [...] the importance of taking them as prescribed. DATY diet handouts Assessment & Plan (10/20/2023 11:32 AM EDT): Our specific goals, for your hypertension, is [...] the importance of taking them as prescribed. DATY diet handouts Assessment & Plan (03/24/2023 3:55 PM EDT): Our specific goals, for your hypertension, is [...] the importance of taking them as prescribed. DATY diet handouts Fibromyalgia 02/23/2023 Glucose intolerance (impaired glucose tolerance) 02/23/2023 Assessment & Plan (10/20/2023 11:30 AM EDT): No Tobacco use Follow ADA 1800 diet low carbohydrate Continue Med Compliance Goal LDL less than 100 Goal BP 130/80 Goal HgbA1c < 7.0% Monitor Feet, monitor for infection Needs Exercise Yearly eye exams Prior to your visit today we reviewed your chart and outlined testing and treatment needed for your care. Reviewed poissble complications of diabetes including, loss of vision, kidney failure and increased risk of heart attacks and stroke. We made recommendations on how to control your blood sugars, and minimize your risk of these complications. We discussed your current barriers to a healthy living and importance of healthy diet and exercise. Hyperlipidemia 02/23/2023 Assessment & Plan (03/24/2023 3:56 PM EDT): Declines Lipid lowering agent Iron deficiency anemia due to chronic blood loss 02/23/2023 Biatrial enlargement 02/23/2023 Assessment & Plan (04/04/2024 10:27 AM EDT): Sees Cardiology Probably one of the causes of atrial fibrillation Morbid (severe) obesity due to excess calories 0 02/23/2023 Assessment & Plan (10/20/2023 11:30 AM EDT): Weight loss encouraged Myalgia 02/23/2023 Obstructive sleep apnea syndrome 02/23/2023 Osteoarthritis of both knees 02/23/2023 Primary osteoarthritis 02/23/2023 Tinnitus of both ears 02/23/2023 Resolved Problems Problem Noted Date Diagnosed Date Resolved Date Medicare annual wellness visit, subsequent 03/24/2023 09/09/2024 Assessment & Plan (04/04/2024 10:16 AM EDT): Colonoscopy every 10 years or Cologuard every [...] Ultrasound of Aorta to screen for Anuerysm Other osteoporosis without c urrent pathological fracture 02/23/2023 09/09/2024 Osteoarthritis of knee 02/23/202303/07 Encounters Date Type Department Care Team Description 01/26/2025 10:00 AM EDT Office Visit [facility] [address] [facility] [address] [place] [address] Ignacia Simeon PA Essential hypertension (Primary Dx); Glucose intolerance (impaired glucose tolerance); Fibromyalgia; Primary osteoarthritis of both knees 01/26/2025 Bamboo flowsheet [facility] [address] [facility] [address] [place] [address] Ignacia Simeon PA 01/26/2025 Travel 01/25/2025 Refill [facility] [address] [facility] [address] [place] [address] Venecia King MD Essential hypertension 01/24/2025 Abstract [facility] [address] [facility] [address] [place] [address] Venecia King MD 01/18/2025 Patient Outreach [facility] [address] [place] [address] Estefani Osman RN 01/16/2025 Refill [facility] [address] [facility] [address] [place] [address] Venecia King MD Fibromyalgia; Lumbar strain, initial encounter 01/12/2025 Abstract [facility] [address] [facility] [address] [place] [address] Venecia King MD 01/09/2025 Refill [facility] [address] [facility] [address] [place] [address] Ignacia Simeon PA Localized swelling of both lower legs 12/20/2024 Abstract [facility] [address] [facility] [address] [place] [address] Venecia King MD 12/20/2024 Patient Outreach [facility] [address] [facility] [address] [place] [address] Venecia King MD 11/25/2024 Abstract [facility] [address] [facility] [address] [place] [address] Venecia King MD 11/16/2024 Abstract [facility] [address] [facility] [address] [place] [address] Venecai King MD from Last 3 Months Immunizations Immunization Administration Dates Next Due Influenza, High Dose Seasona l, Preservative Free 07/21/2024,05/05/2021,05/10/2019,03/22,06/03/2017 Influenza, High-dose Seasona l, Quadrivalent, Preservative Free 05/05/2021 Influenza, Seasonal, Quadriv alent, Adjuvanted 05/18/2023,06/11/2022,05/27/2020 Influenza, seasonal, injecta ble, preservative free 05/08/2015 Influenza, seasonal, intrade rmal, preservative free 05/29/2016 Pneumococcal Conjugate PCV 13 03/22/2018 Pneumococcal Polysaccharide PPSV23 05/10/2019, TD (adult), 2 Lf tetanus tox oid, preservative free, adsorbed 10/05/2009 Tdap 04/14/2019,07/08/2016 Family History Medical History Relation Name Comments Cancer Mother Heart disease Mother Mental illness Mother Diabetes Sibling Hypertension Sibling Relation Name Status Comments Father Mother Sibling Social History Tobacco Use Types Packs/Day Years Used Date Smoking Tobacco: Never Smokeless Tobacco: Never Tobacco Cessation:Counseling Given: Not Answered Alcohol Use Standard Drinks/Week Comments Never 0 [...] often do you attend chur ch or taoist services? 1 to 4 times per year 10/14/2023 Do you belong to any clubs o r organizations such as latter day groups, unions, fraternal or athletic groups, or [...] Recorded Patient Health Questionnaire-2 Score 0 01/26/2025 [facility] Answer Date Recorded [...] on file Sexual Orientation Not on file Last Filed Vital Signs Vital Sign Reading [...] Mass Index 45.2 01/26/2025 10:01 AM EDT Plan of Treatment Upcoming Encounters Date Type Department Care Team (Late st Contact Info) Description 02/28/2025 10:30 AM EDT Office Visit [facility] [address] [facility] [address] [place] [address] Ignacia Simeon PA [address] [facility] [address] [place] [address] Health Maintenance Due Date Last Done Comments CT Colonography 1950 Colonoscopy 1950 FIT 1950 FOBT 1950 Sigmoidoscopy 1950 Diabetes: Retinopathy Screening 11/06/1961 Diabetes: Urine Protein Screening 10/19/2024 10/20/2023 FIT-DNA 12/31/2024 12/31/2021, 10/19/2018 Influenza Vaccine (#1) 2025 , 05/18/2023, 06/11/2022, Additional history exists Medicare Annual Wellness (AWV) 04/04/2025 04/04/2024, 03/24/2023, 12/17/2021 Mammogram 04/05/2025 04/05/2024, 03/28, 04/01/2023, Additional history exists Diabetes: Hemoglobin A1C 04/28/2025 025, 10/20/2023, 03/31/2023, Additional history exists Colorectal Cancer Screening 01/26/2026 Postponed from 1950 (Patient Refused) Pneumococcal Vaccine: 65+ Years Completed 05/10/2019, 04/14/2019, 03/22/2018 Procedures Procedure Name Priority Date/Time Associated Diagnosis Comments POCT GLYCATED HEMOGLOBIN, TOTAL Routine 01/26/2025 10:00 AM EDT Glucose intolerance (impaired glucose tolerance) MM TOMOSYNTHESIS SCREENING BI 04/05/2024 5:14 PM EDT MICROALBUMIN / CREATININE URINE RATIO Routine 10/20/2023 3:46 PM EDT Glucose intolerance (impaired glucose tolerance) LAB COLOGUARD COLON CANCER SCREEN Routine 12/31/2021 from Last 3 Months or Most Recently Relevant to Health Maintenance Results * (ABNORMAL) POCT Glycated hemoglobin, total (01/26/2025 10:00 AM EDT) Hemoglobin A1C 5.8 Blood 01/26/2025 10:0 0 AM EDT Ignacia MARQUEZ POINT OF CARE TEST ENTER/EDIT ORDERABLES Final Result * MM TOMOSYNTHESIS SCREENING BI (04/05/2024 5:14 PM EDT) Anatomical Region Laterality Modality Other 04/05/2024 5:14 PM EDT Narrative 04/05/2024 5:15 [place] [address] Mammography Report Signed Patient: LESLIE MATHIS MR#: [id number] : 1950 Acct:[id number] Age/Sex: 73 / F ADM Date: 04/05/24 Loc: MAMMO Attending Dr: IGNACIA SIMEON Ordering Physician: IGNACIA SIMEON Results: Date of Service: 04/05/24 Follow Up: Procedure(s): MM tomosynthesis screening BI Accession Number(s): [id number] cc: VENECIA KING ; IGNACIA SIMEON Patient Name: LESLIE MATHIS MR#: [id number] : 1950 Exam Date: 04/05/2024 Ordering Doctor: DR IGNACIA MARQUEZ RADIOLOGY REPORT PROCEDURE: MM TOMOSYNTHESIS SCREENING BI COMPARISON: MM TOMOSYNTHESIS SCREENING BI, 04/01/2023. MG MAMM SCREEN 3D JACQUELINE CAD, 01/08/2022. MG MAMM SCREEN 3D JACQUELINE CAD, 10/09/2020. MG MAMM JACQUELINE SCRN W CAD DIG, 10/19/2013. INDICATIONS: Screening Calculator Name NCI Breast Cancer Risk Assessment Tool 5 Year Breast Cancer Risk 3.80% Lifetime Breast Cancer Risk 9.70% Personal Breast Cancer No Personal Ovarian Cancer No Treatments None Family Cancers Mother with breast cancer at age 80. LOCATION: [facility] BREAST COMPOSITION: There are scattered areas of fibroglandular density. FINDINGS: DIAGNOSTIC CATEGORY 2--BENIGN FINDING: RIGHT BREAST: No significant suspicious finding. Scattered benign-appearing calcifications are present. No significant change has occurred. LEFT BREAST: No significant suspicious finding. Scattered benign-appearing calcifications are present. No significant change has occurred. RECOMMENDATIONS: ROUTINE MAMMOGRAM AND CLINICAL EVALUATION IN 12 MONTHS. PLEASE NOTE: A NORMAL MAMMOGRAM DOES NOT EXCLUDE THE POSSIBILITY OF BREAST CANCER. A CLINICALLY SUSPICIOUS PALPABLE LUMP SHOULD BE BIOPSIED. Dictated by: Jasper Hoffmann M.D. on 04/05/2024 at 17:06 Approved by: Jasper Hoffmann M.D. on 04/05/2024 at 17:13 Dictated By: Jasper Hoffmann M.D. Signed By: 04/05/241714 DD/ 13 TD/TT: Farm Instructor: Procedure Note Radiology, Radiologist, MD - 04/05/2024 [place] [address] Mammography Report Signed Patient: LESLIE MATHIS RMR#: [id number] : 1950cct:[id number] Age/Sex: 73 / FADM Date: 04/05/24 Loc: MAMMO Attending Dr: IGNACIA SIMEON Ordering Physician: IGNACIA SIMEON MResults: Date of Service: 04/05/24Follow Up: Procedure(s): MM tomosynthesis screening BI Accession Number(s): [id number] cc: VENECIA KING ; IGNACIA SIMEON Patient Name: LESLIE MATHIS MR#: [id number] : 1950 Exam Date: 04/05/2024 Ordering Doctor: DR IGNACIA SIMEON PA RADIOLOGY REPORT PROCEDURE: MM TOMOSYNTHESIS SCREENING BI COMPARISON: MM TOMOSYNTHESIS SCREENING BI, 04/01/2023. MG MAMM [id number] JACQUELINE CAD, 01/08/2022. MG MAMM SCREEN 3D JACQUELINE CAD, 10/09/2020. MG MAMM BILSCRN W CAD DIG, 10/19/2013. INDICATIONS: Screening Calculator Name NCI Breast Cancer Risk Assessment Tool 5 Year Breast Cancer Risk 3.80% Lifetime Breast Cancer Risk 9.70% Personal Breast Cancer No Personal Ovarian Cancer No Treatments None Family Cancers Mother with breast cancer at age 80. LOCATION: [facility] BREAST COMPOSITION: There are scattered areas of fibroglandulardensity. FINDINGS: DIAGNOSTIC CATEGORY 2--BENIGN FINDING: RIGHT BREAST: No significant suspicious finding. Scatteredbenign-appearing calcifications are present. No significant change has occurred. LEFT BREAST: No significant suspicious finding. Scatteredbenign-appearing calcifications are present. No significant change has occurred. RECOMMENDATIONS: ROUTINE MAMMOGRAM AND CLINICAL EVALUATION IN 12 MONTHS. PLEASE NOTE: A NORMAL MAMMOGRAM DOES NOT EXCLUDE THE POSSIBILITY OFBREAST CANCER. A CLINICALLY SUSPICIOUS PALPABLE LUMP SHOULD BE BIOPSIED. Dictated by: Jasper Hoffmann M.D. on 04/05/2024 at 17:06 Approved by: Jasper Hoffmann M.D. on 04/05/2024 at 17:13 Dictated By: Jasper Hoffmann M.D. Signed By:04/05/241714 DD/ 13 TD/TT: Farm Instructor: us Ignacia MARQUEZ [facility] Final Result * Microalbumin / creatinine urine ratio (10/20/2023 3:46 PM EDT) CREATININE, RANDOM URINE 41 20 - 275 mg/dL [facility] ALBUMIN, URINE <0.2 See Note: mg/dL [facility] Comment: Reference Range: Reference Range Not established ALBUMIN/CREATININE RATIO, RANDOM URINE NOTE <30 mg/g creat [facility] Comment: NOTE: The urine albumin value is less than 0.2 mg/dL therefore we are unable to calculate excretion and/or creatinine ratio. The ADA defines abnormalities in albumin excretion as follows: Albuminuria Category Result (mg/g creatinine) Normal to Mildly increased <30 Moderately increased 30-299 Severely increased > OR = 300 The ADA recommends that at least two of three specimens collected within a 3-6 month period be abnormal before considering a patient to be within a diagnostic category. Urine Urine specimen obtained by clean catch procedure / Unknown 10/20/2023 3:46 PM EDT 10/20/2023 3:46 PM EDT Narrative Resulting Agency Comment Performing Organization Information Site ID: QPT Name: [facility] Address: [address] [place] [address], [address] [place] [id number] Director: Steve Chávez MD us Venecia King MD LAB URINE ORDERABLES Final Resul t [facility] * Cologuard?? colon cancer screening (12/31/2021) COLOGUARD RESULT REPORTABLE Negative Negative [facility] Comment: NEGATIVE TEST RESULT. A negative Cologuard result indicates a low likelihood that a colorectal cancer (CRC) or advanced adenoma (adenomatous polyps with more advanced pre-malignant features) is present. The chance that a person with a negative Cologuard test has a colorectal cancer is less than 1 in 1500 (negative predictive value >99.9%) or has an advanced adenoma is less than 5.3% (negative predictive value 94.7%). These data are based on a prospective cross-sectional study of 10,000 individuals at average risk for colorectal cancer who were screened with both Cologuard and colonoscopy. (Ora Lawrence et al, N Engl J Med 2014;370(14):6339-2530) The normal value (reference range) for this assay is negative. COLOGUARD RE-SCREENING RECOMMENDATION: Periodic colorectal cancer screening is an important part of preventive healthcare for asymptomatic individuals at average risk for colorectal cancer. Following a negative Cologuard result, the [place] [employer] Society and U.S. Multi-Society Task Force screening guidelines recommend a Cologuard re-screening interval of 3 years. References: [place] [employer] Guideline for Colorectal Cancer Screening: https://www.cancer.org/cancer/qgyzx-ytlmxy-kmgfww/xztffakvo-rqgzfeheb-ocphnhq/ac s-rec ommendations.html.; Madi DK, Natasha CR, Yesi OlmosK, Colorectal Cancer Screening: Recommendations for Physicians and Patients from the U.S. Multi-Society Task Force on Colorectal Cancer Screening , Am J Gastroenterology 2017; 112:6658-6287. TEST DESCRIPTION: Composite algorithmic analysis of stool DNA-biomarkers with hemoglobin immunoassay. Quantitative values of individual biomarkers are not reportable and are not associated with individual biomarker result reference ranges. Cologuard is intended for colorectal cancer screening of adults of either sex, 45 years or older, who are at average-risk for colorectal cancer (CRC). Cologuard has been approved for use by the U.S. FDA. The performance of Cologuard was established in a cross sectional study of average-risk adults aged 50-84. Cologuard performance in patients ages 45 to 49 years was estimated by sub-group analysis of near-age groups. Colonoscopies performed for a positive result may find as the most clinically significant lesion: colorectal cancer [4.0%], advanced adenoma (including sessile serrated polyps greater than or equal to 1cm diameter) [20%] or non- advanced adenoma [31%]; or no colorectal neoplasia [45%]. These estimates are derived from a prospective cross-sectional screening study of 10,000 individuals at average risk for colorectal cancer who were screened with both Cologuard and colonoscopy. (Ora Tolentino al, N Engl J Med 2014;370(14):0339-3728.) Cologuard may produce a false negative or false positive result (no colorectal cancer or precancerous polyp present at colonoscopy follow up). A negative Cologuard test result does not guarantee the absence of CRC or advanced adenoma (pre-cancer). The current Cologuard screening interval is every 3 years. ([place] [employer] Society and U.S. Multi-Society Task Force). Cologuard performance data in a 10,000 patient pivotal study using colonoscopy as the reference method can be accessed at the following location: www.Wh[employer] Reklaim/results. Additional description of the Cologuard test process, warnings and precautions can be found at www.cologuard.com. 12/31/2021 Venecia King MD LAB MOLECULAR DIAGNOSTICS ORDERA [facility] Final Result Performing Organization Address City/State/[facility] Co de Phone Number [facility] from Last 3 Months or Most Recently Relevant to Health Maintenance Insurance MEDICARE BCBS Care Teams Microbiology Coordinator Relationship Specialty Start Date End Date Venecia King MD [address] [facility] [address] [place] [address] PCP - ACO Reach 12/18/22 Venecia King MD [address] [facility] [address] [place] [address] PCP - General Family Medicine 12/02/22 Celeste Chung LPN [address] [address] 10/14/24
--- OUTSIDE RECORDS SUMMARY | 2025-02-02 14:53 | XMS_ITS | Encounter Summary ---
Author Organization [facility] Address [address] [place] [address] Care Team Providers Care Tube And Manifold Builder Name Role Phone Venecia Vyas MD Unavailable Venecia Vyas MD Primary Care Provider [phone] Celeste Chung LPN Unavailable Encounter Details Date Type Department Care Team (Latest Contact Info) Description 01/26/2025 Travel Social History Tobacco Use Types Packs/Day Years [...] How often do you attend chur or taoism services? 1 to 4 times per year 10/14/2023 Do you belong to any clubs o r organizations such as advent groups, unions, fraternal or athletic groups, or [...] Recorded Patient Health Questionnaire-2 Score 0 01/26/2025 [facility] - Occupational [...] place to sleep or slept in a residential (including now)? No 10/14/2023 Comments Unknown Sex [...] 02/28/2025 10:30 AM EDT Office Visit [facility] [address] [facility] [address] [place] [address] Ignacia Simeon PA [address] [facility] [address] [place] [address] documented as of this encounter Visit Diagnoses Not on filedocumented in this encounter Additional Health Concerns Assessment Noted Time A fall risk assessment has been complete d for the patient 10/14/2023 9:55 AM EDT documented as of this encounter Care Teams Tube And Manifold Builder Relationship Specialty Start Date End Date Venecia Vyas MD [address] [facility] [address] [place] [address] PCP - ACO Reach 12/18/22 Venecia Vyas MD [address] [facility] [address] [place] [address] PCP - General Family Medicine 12/02/22 Celeste Chung LPN [address] [address] 10/14/24 documented as of this encounter
--- OUTSIDE RECORDS SUMMARY | 2025-02-02 14:54 | XMS_ITS | Encounter Summary ---
Author Organization [facility] Address [address] [facility] [place] [address] Care Team Providers Care Seasoning Mixer Name Role Phone Venecia King MD Unavailable Venecia King MD Primary Care Provider [phone] Thursday, Yandy EVENT STAFF Unavailable [phone] Estefani Osman RN Unavailable [phone] ChungCeleste EVENT STAFF Unavailable Encounter Details Date Type Department Care Team (Late Contact Info) Description 04/01/2023 Clinisync Result Encounter [facility] External Department Unsolicited Venecia King MD [address] [facility] 110 [place], [place] [id number] Social History Tobacco Use Types Packs/Day Years Used Date Smoking Tobacco: Never Smokeless Tobacco: Never Alcohol Use Standard Drinks/Week Comments Never 0 (1 standard drink = 0.6 oz pur e alcohol) PHQ-2 Answer Date Recorded Patient Health Questionnaire-2 Score 0 03/24/2023 Comments Unknown Sex and Gender Information Value Date Recorded Sex Assigned at Not on file Legal Sex Female 6:42 PM EDT Gender Identity Not on file Sexual Orientation Not on file documented as of this encounter Plan of Treatment Upcoming Encounters Date Type Department Care Team (Late Contact Info) Description 02/28/2025 10:30 AM EDT Office Visit [facility] [address] [facility] 110 [place] [address] Ignacia Simeon PA [address] [facility] 110 [place], [place] [id number] documented as of this encounter Procedures Procedure Name Priority Date/Time Associated Diagnosis Comments TOMOSBI 04/01/2023 11:58 AM EDT documented in this encounter Results * TOMOSBI (04/01/2023 11:58 AM EDT) Anatomical Region Laterality Modality Other 04/01/2023 11:5 8 AM EDT Narrative 04/01/2023 11:58 [place] [address] Mammography Report Signed Patient: LESLIE LOPEZ MR#: [id number] : 1950 Acct:[id number] Age/Sex: 72 / F ADM Date: 04/01/23 Loc: MAMMO Attending Dr: VENECIA KING Ordering Physician: VENECIA KING Results: Date of Service: 04/01/23 Follow Up: Procedure(s): MM tomosynthesis screening BI Accession Number(s): [id number] cc: VENECIA KING Patient: LESLIE LOPEZ Exam Date: 04/01/2023 : 1950 Gender:F Ordering : DR VENECIA KING M.D. Admission #: [id number] Family : Order #: [id number] CLICK HERE TO VIEW EXAM RADIOLOGY REPORT PROCEDURE: MM TOMOSYNTHESIS SCREENING BI COMPARISON: MG MAMM SCREEN 3D JACQUELINE CAD, 01/08/2022. MG MAMM SCREEN 3D JACQUELINE CAD, 10/09/2020. INDICATIONS: Screening mammogram Z12.31 Calculator Name NCI Breast Cancer Risk Assessment Tool 5 Year Breast Cancer Risk 3.80% Lifetime Breast Cancer Risk 10.20% Personal Breast Cancer No Personal Ovarian Cancer No Treatments None Family Cancers Mother with breast cancer at age 80. LOCATION: [facility] BREAST COMPOSITION: Scattered areas fibroglandular density. [...] PALPABLE LUMP SHOULD BE BIOPSIED. Dictated by: Terry Pro MD on 04/01/2023 at 11:57 Approved by: Terry Pro MD on 04/01/2023 at 11:58 Dictated By: Terry Pro M.D. Signed By: 04/01/23 1159 DD/ 1158 TD/TT: Seed Potato Cutter: Procedure Note Radiology, Radiologist, MD - 04/17/2023 [place] [address] Mammography Report Signed Patient: LESLIE LOPEZ RMR#: [id number] : 1950cct:[id number] Age/Sex: 72 / FADM Date: 04/01/23 Loc: MAMMO Attending Dr: VENECIA KING Ordering Physician: VENECIA KINGResults: Date of Service: 04/01/23Follow Up: Procedure(s): MM tomosynthesis screening BI Accession Number(s): [id number] cc: VENECIA KING Patient: LESLIE LOPEZ Exam Date: 04/01/2023 : 1950 Gender:F Ordering : DR VENECIA KING M.D. Admission #: [id number] Family : Order #: [id number] CLICK HERE TO VIEW EXAM RADIOLOGY REPORT PROCEDURE: MM TOMOSYNTHESIS SCREENING BI COMPARISON: MG MAMM SCREEN 3D JACQUELINE CAD, 01/08/2022. MG MAMM SCREEN 3DBIL CAD, 10/09/2020. INDICATIONS: Screening mammogram Z12.31 Calculator Name NCI Breast Cancer Risk Assessment Tool 5 Year Breast Cancer Risk 3.80% Lifetime Breast Cancer Risk 10.20% Personal Breast Cancer No Personal Ovarian Cancer No Treatments None Family Cancers Mother with breast cancer at age 80. LOCATION: [facility] BREAST COMPOSITION: Scattered areas fibroglandular density. [...] PALPABLE LUMP SHOULD BE BIOPSIED. Dictated by: Terry Pro MD on 04/01/2023 at 11:57 Approved by: Terry Pro MD on 04/01/2023 at 11:58 Dictated By: Terry Pro M.D. Signed By:04/01/23 1159 DD/ 1158 TD/TT: Seed Potato Cutter: Venecia King MD [facility] Final Result documented in this encounter Visit Diagnoses Not on filedocumented in this encounter Care Teams Seasoning Mixer Relationship Specialty Start Date End Date Venecia King MD [address] [facility] [address] [place] [address] PCP - ACO Reach 12/18/22 Venecia King MD [address] [facility] [address] [place] [address] PCP - General Family Medicine 12/02/22ThursdayYandy LPN [address] [place] [address] Licensed Practical Nurse Family Medicine 10/12/23 Estefani Osman RN [address] [place] [address] Licensed Practical Nurse Family Medicine 09/02/2410/14 Celeste Chung LPN [address] [facility] [address] [place] [address] 10/14/24 documented as of this encounter
--- OUTSIDE RECORDS SUMMARY | 2025-02-02 14:54 | XMS_ITS | Clinical Summary ---
Author Organization [facility] Address [address] [place] [address] Care Team Providers Care Blueprint Assembler Name Role Phone Venecia Vyas MD Primary Care Provider [phone] Allergies Active Allergy Reactions Criticality Noted Date Comments Penicillin Unknown 06/07/2024 Medications carvedilol (Coreg) 12.5 mg tablet Take 1 tablet by mouth with breakfast and with evening meal. 4 Active dilTIAZem CD (Cardizem CD) 240 mg 24 hr capsule Take 1 capsule by mouth in the morning. 4 Active furosemide (Lasix) 20 mg tablet Take 20 mg by mouth twice a day. 4 Active metaxalone (Skelaxin) 800 mg tablet Take 800 mg by mouth if needed for muscle spasms. Active metFORMIN (Glucophage) 500 mg tablet Take 500 mg by mouth with breakfast. 4 Active PARoxetine (Paxil) 20 mg tablet Take 20 mg by mouth. 4 Active potassium chloride CR (Klor-Con M10) 10 mEq ER tablet Take 10 mEq by mouth in the morning. 4 Active pregabalin (Lyrica) 50 mg capsule Take 50 mg by mouth in the morning and at bedtime. 4 Active warfarin (Coumadin) 5 mg tablet TAKE 1 TABLET ONE TIME DAILY, EXCEPT TAKE 2 TABLETS ON SUNDAYS AND Wednesdays 4 Active rivaroxaban (Xarelto) 20 mg tabletIndicatio ns:PAF (paroxysmal atrial fibrillation) (CMS/HCC) Take 1 tablet (20 mg) by mouth daily with evening meal. Take with food. 90 tablet 3 4 Active amiodarone (Pacerone) 200 mg tabletIndicatio ns:PAF (paroxysmal atrial fibrillation) (CMS/HCC) Take 2 tablets (400 mg) by mouth two times daily for 14 days, THEN 1 tablet (200 mg) in the morning. 146 tablet 4 Active Active Problems Problem Noted Date Diagnosed Date PAF (paroxysmal atrial fibrillation) 06/07/2024 Atrial septal defect 04/04/2024 Overview (06/07/2024): Last Assessment & Plan: See Highway Maintenance Supervisor in end of March Nonrheumatic tricuspid valve regurgitation 04/04 Body mass index (BMI) 40.0-44.9, adult Dyspnea on exertion 03/07/2024 Elevated LDL cholesterol level 03/07/2024 Localized swelling of both lower legs 03/07/2024 Neoplasm of uncertain behavior of skin of hand 0 03/07/2024 Other thrombophilia 03/07/2024 Breast screening 03/24/2023 Overview (03/22/2024): Last Assessment & Plan: Mammo ordered Adjustment disorder in remission 02/23/2023 Asthmatic bronchitis 02/23/2023 Atrial fibrillation 02/23/2023 Overview (03/22/2024): Last Assessment & Plan: Watch for bleeding or bruising in bowel or urine. Avoid vitamin K products and supplements. Decreased estrogen level 02/23/2023 Depressive disorder 02/23/2023 Essential hypertension 02/23/2023 Overview (03/22/2024): Last Assessment & Plan: Our specific goals, for your hypertension, is [...] taking them as prescribed. DASH diet handouts Fibromyalgia 02/23/2023 Glucose intolerance (impaired glucose tolerance) 02/23/2023 Overview (03/22/2024): Last Assessment & Plan: No Tobacco use Follow ADA 1800 diet [...] of healthy diet and exercise. Hyperlipidemia 02/23/2023 Overview (03/22/2024): Last Assessment & Plan: Declines Lipid lowering agent Iron deficiency anemia due to chronic blood loss 02/23/2023 Left atrial dilatation 02/23/2023 Morbid obesity 02/23/2023 Overview (03/22/2024): Last Assessment & Plan: Weight loss encouraged Myalgia 02/23/2023 Obstructive sleep apnea syndrome 02/23/2023 Osteoarthritis of both knees 02/23/2023 Other osteoporosis without current pathological fracture 02/23/2023 Primary osteoarthritis 02/23/2023 Tinnitus of both ears 02/23/2023 Family History Medical History Relation Name Comments No Known Problems Father No Known Problems Mother Relation Name Status Comments Father Mother Social History Tobacco Use Types Packs/Day Years Used Date Smoking Tobacco: Never Smokeless Tobacco: Never Alcohol Use Standard Drinks/Week Comments Not Currently 0 (1 standard drink = 0.6 oz pur e alcohol) Comments Unknown Sex and Gender Information Value Date Recorded Sex Assigned at Not on file Legal Sex Female 10:04 PM EDT Gender Identity Not on file Sexual Orientation Not on file Last Filed Vital Signs Vital Sign Reading Time Taken Comments Blood Pressure 148/98 06/07/2024 3:06 PM EST Pulse 65 06/07/2024 3:06 PM EST Temperature - - Respiratory Rate - - Oxygen Saturation 95% 06/07/2024 3:06 PM EST Inhaled Oxygen Concentration - - Weight 120 kg (265 lb) 06/07/2024 3:06 PM EST Height 165.1 cm (5' 5 ) 06/07/2024 3:06 PM EST Body Mass Index 44.1 06/07/2024 3:06 PM EST Plan of Treatment Health Maintenance Due Date Last Done Comments CT Colonography 1950 Colonoscopy 1950 Colorectal Cancer Screening 1950 Diabetes: Hemoglobin A1C 1950 FIT-DNA 1950 FIT 1950 FOBT 1950 Medicare Annual Wellness (AWV) 1950 Sigmoidoscopy 1950 Diabetes: Retinopathy Screening 11/06/1961 Depression Screening 1963 Zoster Vaccines (1 of 2) 11/06/2001 Fall Risk Screening 11/06/2016 Mammogram 01/09/2024 01/08/2022 COVID-19 Vaccine ( season) 2024 08/14/2021, 10/10/2020, 09/19/2020 Diabetes: Urine Protein Screening 10/19/2024 10/20/2023 Influenza Vaccine (#1) 2025 , 05/18/2023, 06/11/2022, Additional history exists Adult Tetanus 04/14/2029 04/14/2019, 06/26, 10/05/2009 Pneumococcal Vaccine: 50+ Years Completed 05/10/2019, 04/14/2019, 03/22/2018 HIB Vaccines Aged Out No longer eligi ble based on patient's age to complete this topic HPV Vaccines Aged Out No longer eligi ble based on patient's age to complete this topic IPV Vaccines Aged Out No longer eligi ble based on patient's age to complete this topic Meningococcal B Vaccine Aged Out No l onger eligible based on patient's age to complete this topic Meningococcal Vaccine Aged Out No faisal addi eligible based on patient's age to complete this topic Rotavirus Vaccines Aged Out No longer eligible based on patient's age to complete this topic Insurance MEDICARE [facility] Care Teams Blueprint Assembler Relationship Specialty Start Date End Date Venecia Vyas MD 112 [facility] 110 [place] [address] PCP - General Internal Medicine 06/02/24
--- OUTSIDE RECORDS SUMMARY | 2025-02-02 14:54 | XMS_ITS | Encounter Summary ---
Author Organization [facility] Address [address] [facility] [place] [address] Care Team Providers Care Pattern Maker Programer Name Role Phone Venecia Vyas MD Unavailable Venecia Vyas MD Primary Care Provider [phone] Thursday, Yandy TELETYPIST Unavailable [phone] Estefani Osman RN Unavailable [phone] Chung, Celeste TELETYPIST Unavailable Encounter Details Date Type Department Care Team (Late st Contact Info) Description 08/05/2023 Orders Only [facility] [address] [facility] [address] [place] [address] A, Unknown Practice [address] [place], [place] [address] Social History Tobacco Use Types Packs/Day Years Used Date Smoking Tobacco: Never Smokeless Tobacco: Never Alcohol Use Standard Drinks/Week Comments Never 0 (1 standard drink = 0.6 oz pure alcohol) caffeine: chocolate, coffee,soda,tea PHQ-2 Answer Date Recorded Patient Health Questionnaire-2 [...] Visit [facility] [address] [facility] [address] [place] [address] Ignacia Simeon, PA [address] [facility] 110 [place] [address] documented as of this encounter Procedures Procedure Name Priority Date/Time Associated Diagnosis Comments SCANNED LABS Routine 08/05/2023 3:16 PM EST documented in this encounter Results * SCANNED LABS (08/05/2023 3:16 PM EST) us Unknown Practice A LAB CHG PERFORMABLES Final Re sult documented in this encounter Visit Diagnoses Not on filedocumented in this encounter Care Teams Pattern Maker Programer Relationship Specialty Start Date End Date Venecia Vyas MD [address] [facility] 110 [place] [address] PCP - ACO Reach 12/18/22 Venecia Vyas MD [address] [facility] 110 [place] [address] PCP - General Family Medicine 12/02/22ThursdayYandy LPN [address] [place] [address] Licensed Practical Nurse Family Medicine 10/12/23 Estefani Osman, RN [address] [place] [address] Licensed Practical Nurse Family Medicine 09/02/2410/14 Celeste Chung LPN [address] [facility] 110 [place] [address] 10/14/24 documented as of this encounter
--- OUTSIDE RECORDS SUMMARY | 2025-02-02 14:54 | XMS_ITS | Encounter Summary ---
Author Organization [facility] Address [address] [facility] [place] [address] Care Team Providers Care Suction Plate Carrier Cleaner Name Role Phone Venecia Vyas MD Unavailable Venecia Vyas MD Primary Care Provider [phone] Thursday, Yandy HOG COOLER Unavailable [phone] Estefani Osman RN Unavailable [phone] Chung, Celeste HOG COOLER Unavailable Encounter Details Date Type Department Care Team (Late st Contact Info) Description 08/17/2023 Orders Only [facility] [address] [facility] [address] [place] [address] A, Unknown Practice [address] [place], [place] [address] Social History Tobacco Use Types Packs/Day Years [...] CI FM [address] [facility] [address] [place] [address] Hemmer, Ignacia M, PA [address] [facility] 110 [place] [address] documented as of this encounter Procedures Procedure Name Priority Date/Time Associated Diagnosis Comments ELECTROCARDIOGRAM REPORT Routine 024 10:21 AM EST documented in this encounter Results * Electrocardiogram Report (08/15/2023 10:21 AM EST) us Unknown Practice A IN CLINIC/BEDSIDE ORDERABLES Final Result documented in this encounter Visit Diagnoses Not on filedocumented in this encounter Care Teams Suction Plate Carrier Cleaner Relationship Specialty Start Date End Date Venecia Vyas MD [address] [facility] 110 [place] [address] PCP - ACO Reach 12/18/22 Venecia Vyas MD [address] [facility] 110 [place] [address] PCP - General Family Medicine 12/02/22ThursdayYandy LPN [address] [facility] 110 [place] [address] Licensed Practical Nurse Family Medicine 10/12/23 Estefani Osman, RN [address] [place] [address] Licensed Practical Nurse Family Medicine 09/02/2410/14 Celeste Chung LPN [address] [facility] 110 [place] [address] 10/14/24 documented as of this encounter
--- OUTSIDE RECORDS SUMMARY | 2025-02-02 14:54 | XMS_ITS | Encounter Summary ---
Author Organization [facility] Address [address] [place] [address] Care Team Providers Care Patrol Mother Name Role Phone Venecia Vyas MD Unavailable Venecia Vyas MD Primary Care Provider [phone], Yandy ICT SUPPORT AND TEST ENGINEERS Unavailable [phone] Estefani Osman RN Unavailable Chung, Celeste ICT SUPPORT AND TEST ENGINEERS Unavailable Encounter Details Date Type Department Care Team (Late Contact Info) Description 06/02/2023 Abstract [facility] [address] [facility] 110 [place] [address] Venecia Vyas MD [address] [facility] 110 [place], [place] [address] Social History Tobacco Use Types Packs/Day Years [...] Office Visit [facility] [address] [facility] 110 [place] [address] Ignacia Simeon PA [address] [facility] [address] [place] [address] documented as of this encounter Visit Diagnoses Not on filedocumented in this encounter Care Teams Patrol Mother Relationship Specialty Start Date End Date Venecia Vyas MD [address] [facility] [address] [place] [address] PCP - ACO Reach 12/18/22 Venecia Vyas MD [address] [facility] [address] [place] [address] PCP - General Family Medicine 12/02/22ThursdayYandy LPN [address] [place] [address] Licensed Practical Nurse Family Medicine 10/12/23 Estefani Osman, RN [address] [place] [address] Licensed Practical Nurse Family Medicine 09/02/2410/14 Celeste Chung LPN [address] [facility] 110 [place] [address] 10/14/24 documented as of this encounter
--- OUTSIDE RECORDS SUMMARY | 2025-02-02 14:54 | XMS_ITS | Encounter Summary ---
Author Organization [facility] Address [address] [facility] [place] [address] Care Team Providers Care Anesthesiologist And Critical Care Name Role Phone Venecia Vyas MD Unavailable Venecia Vyas MD Primary Care Provider [phone], Yandy MASTER CHEF Unavailable [phone] Estefani Osman RN Unavailable Chung, Celeste MASTER CHEF Unavailable Encounter Details Date Type Department Care Team (Late Contact Info) Description 05/28/2023 Abstract [facility] [address] [facility] 110 [place] [address] Venecia Vyas MD [address] [facility] 110 [place], [place] [address] Social History Tobacco Use Types Packs/Day Years [...] Office Visit [facility] [address] [facility] 110 [place] [address] Ignacia Simeon PA [address] [facility] [address] [place] [address] documented as of this encounter Visit Diagnoses Not on filedocumented in this encounter Care Teams Anesthesiologist And Critical Care Relationship Specialty Start Date End Date Venecia Vyas MD [address] [facility] [address] [place] [address] PCP - ACO Reach 12/18/22 Venecia Vyas MD [address] [facility] [address] [place] [address] PCP - General Family Medicine 12/02/22ThursdayYandy LPN [address] [place] [address] Licensed Practical Nurse Family Medicine 10/12/23 Estefani Osman, RN [address] [place] [address] Licensed Practical Nurse Family Medicine 09/02/2410/14 Celeste Chung LPN [address] [facility] 110 [place] [address] 10/14/24 documented as of this encounter
--- OUTSIDE RECORDS SUMMARY | 2025-02-02 14:54 | XMS_ITS | Encounter Summary ---
Author Organization [facility] Address [address] [facility] [place] [address] Care Team Providers Care Wind Farm Operations Manager Name Role Phone Venecia Vyas MD Unavailable Venecia Vyas MD Primary Care Provider [phone], Yandy COMPOSING ROOM SUPERVISOR Unavailable [phone] Estefani Osman RN Unavailable [phone] Chung, Celeste COMPOSING ROOM SUPERVISOR Unavailable Encounter Details Date Type Department Care Team (Late Contact Info) Description 05/06/2023 Abstract [facility] 112 [facility] 110 [place] [address] Venecia Vyas MD [address] [facility] 110 [place] [address] Social History Tobacco Use Types Packs/Day Years [...] Upcoming Encounters Date Type Department Care Team ([facility] Contact Info) Description 02/28/2025 10:30 AM EDT Office Visit [facility] [address] [facility] 110 [place] [address] Ignacia Simeon, PA [address] [facility] [address] [place] [address] documented as of this encounter Visit Diagnoses Not on filedocumented in this encounter Care Teams Wind Farm Operations Manager Relationship Specialty Start Date End Date Venecia Vyas MD [address] [facility] [address] [place] [address] PCP - ACO Reach 12/18/22 Venecia Vyas MD [address] [facility] [address] [place] [address] PCP - General Family Medicine 12/02/22ThursdayYandy LPN [address] [place] [address] Licensed Practical Nurse Family Medicine 10/12/23 Estefani Osman, RN [address] [place] [address] Licensed Practical Nurse Family Medicine 09/02/2410/14 Celeste Chung LPN [address] [facility] [address] [place] [address] 10/14/24 documented as of this encounter
--- OUTSIDE RECORDS SUMMARY | 2025-02-02 14:54 | XMS_ITS | Encounter Summary ---
Author Organization [facility] Address [address] [facility] [place] [address] Care Team Providers Care Ammonia Box Tender Name Role Phone Venecia Vyas MD Unavailable Venecia Vyas MD Primary Care Provider [phone] Thursday, Yandy P D DRIVER Unavailable [phone] Estefani Osman RN Unavailable [phone] ChungCeleste P D DRIVER Unavailable Encounter Details Date Type Department Care Team (Late st Contact Info) Description 04/01/2023 Orders Only [facility] [address] [facility] 110 [place] [address] A, Unknown Practice [address] [place], [place] [address] Social History Tobacco Use Types Packs/Day Years [...] CI FM [address] [facility] [address] [place] [address] Ignacia Simeon PA [address] [facility] [address] [place] [address] documented as of this encounter Procedures Procedure Name Priority Date/Time Associated Diagnosis Comments MAMMOGRAM* Routine 04/01/2023 12:56 PM EDT documented in this encounter Results * MAMMOGRAM* (04/01/2023 12:56 PM EDT) Anatomical Region Laterality Modality Radiographic Elle ging us Unknown Practice A IMG XR PROCEDURES Final Resul t documented in this encounter Visit Diagnoses Not on filedocumented in this encounter Care Teams Ammonia Box Tender Relationship Specialty Start Date End Date Venecia Vyas MD [address] [facility] [address] [place] [address] PCP - ACO Reach 12/18/22 Venecia Vyas MD [address] [facility] [address] [place] [address] PCP - General Family Medicine 12/02/22Thursday, NESSA Kebede [address] [place] [address] Licensed Practical Nurse Family Medicine 10/12/23 Estefani Osman, RN [address] [place] [address] Licensed Practical Nurse Family Medicine 09/02/2410/14 Celeste Chung LPN [address] [facility] [address] [place] [address] 10/14/24 documented as of this encounter
--- OUTSIDE RECORDS SUMMARY | 2025-02-02 14:54 | XMS_ITS | Encounter Summary ---
Author Organization [facility] Address [address] [facility] [place] [address] Care Team Providers Care Vessel Builder Name Role Phone Venecia Vyas MD Unavailable Venecia Vyas MD Primary Care Provider [phone], Yandy HEEL PADDER Unavailable [phone] Estefani Osman RN Unavailable [phone] Chung, Celeste HEEL PADDER Unavailable Encounter Details Date Type Department Care Team (Late Contact Info) Description 06/17/2023 Abstract [facility] 112 [facility] 110 [place] [address] Venecia Vyas MD 112 [place] [facility] 110 [place], [place] [id number] Social History Tobacco Use Types Packs/Day Years [...] Office Visit [facility] 112 [facility] 110 [place] [address] Ignacia Simeon PA [address] [facility] [address] [place] [address] documented as of this encounter Visit Diagnoses Not on filedocumented in this encounter Care Teams Vessel Builder Relationship Specialty Start Date End Date Venecia Vyas MD [address] [facility] [address] [place] [address] PCP - ACO Reach 12/18/22 Venecia Vyas MD [address] [facility] [address] [place] [address] PCP - General Family Medicine 12/02/22ThursdayYandy LPN [address] [place] [address] Licensed Practical Nurse Family Medicine 10/12/23 Estefani Osman, RN [address] [place] [address] Licensed Practical Nurse Family Medicine 09/02/2410/14 Celeste Chung LPN [address] [facility] 110 [place] [address] 10/14/24 documented as of this encounter
--- OUTSIDE RECORDS SUMMARY | 2025-02-02 14:54 | XMS_ITS | Encounter Summary ---
Author Organization [facility] Address [address] [facility] [place] [address] Care Team Providers Care Zoning Assistant Name Role Phone Venecia Vyas MD Unavailable Venecia Vyas MD Primary Care Provider [phone], Yandy TELECOMMUNICATIONS CABLE JOINTER Unavailable [phone] Estefani Osman RN Unavailable [phone] Chung, Celeste TELECOMMUNICATIONS CABLE JOINTER Unavailable Encounter Details Date Type Department Care Team (Late Contact Info) Description 05/19/2023 Abstract [facility] 112 [facility] 110 [place] [address] Venecia Vyas MD [address] [facility] 110 [place], [place] [id number] Social History Tobacco Use Types Packs/Day Years [...] Office Visit [facility] 112 [facility] 110 [place] [address] Ignacia Simeon PA [address] [facility] [address] [place] [address] documented as of this encounter Visit Diagnoses Not on filedocumented in this encounter Care Teams Zoning Assistant Relationship Specialty Start Date End Date Venecia Vyas MD [address] [facility] [address] [place] [address] PCP - ACO Reach 12/18/22 Venecia Vyas MD [address] [facility] [address] [place] [address] PCP - General Family Medicine 12/02/22ThursdayYandy LPN [address] [place] [address] Licensed Practical Nurse Family Medicine 10/12/23 Estefani Osman, RN [address] [place] [address] Licensed Practical Nurse Family Medicine 09/02/2410/14 Celeste Chung LPN [address] [facility] 110 [place] [address] 10/14/24 documented as of this encounter
--- OUTSIDE RECORDS SUMMARY | 2025-02-02 14:54 | XMS_ITS | Encounter Summary ---
Author Organization [facility] Address [address] [facility] [place] [address] Care Team Providers Care Ranch Supervisor Name Role Phone Venecia Vyas MD Unavailable Venecia Vyas MD Primary Care Provider [phone], Yandy KITMAN Unavailable [phone] Estefani Osman RN Unavailable [phone] Chung, Celeste KITMAN Unavailable Encounter Details Date Type Department Care Team (Late Contact Info) Description 08/17/2023 Abstract [facility] 112 [facility] 110 [place] [address] Venecia Vyas MD 112 [place] [facility] 110 [place], [place] [id number] Social History Tobacco Use Types Packs/Day Years [...] Office Visit [facility] 112 [facility] 110 [place] [address] Ignacia Simeon PA [address] [facility] [address] [place] [address] documented as of this encounter Visit Diagnoses Not on filedocumented in this encounter Care Teams Ranch Supervisor Relationship Specialty Start Date End Date Venecia Vyas MD [address] [facility] [address] [place] [address] PCP - ACO Reach 12/18/22 Venecia Vyas MD [address] [facility] [address] [place] [address] PCP - General Family Medicine 12/02/22ThursdayYandy LPN [address] [place] [address] Licensed Practical Nurse Family Medicine 10/12/23 Estefani Osman, RN [address] [place] [address] Licensed Practical Nurse Family Medicine 09/02/2410/14 Celeste Chung LPN [address] [facility] 110 [place] [address] 10/14/24 documented as of this encounter
--- OUTSIDE RECORDS SUMMARY | 2025-02-02 14:54 | XMS_ITS | Encounter Summary ---
Author Organization [facility] Address [address] [facility] [place] [address] Care Team Providers Care Grinder Set Up Operator Thread Name Role Phone Venecia Vyas MD Unavailable Venecia Vyas MD Primary Care Provider [phone], Yandy EDGE INKER HEELS Unavailable [phone] Estefani Osman RN Unavailable Chung, Celeste EDGE INKER HEELS Unavailable Encounter Details Date Type Department Care Team (Late Contact Info) Description 04/15/2023 Abstract [facility] 112 [facility] 110 [place] [address] Venecia Vyas MD [address] [facility] 110 [place] [address] Social History Tobacco Use Types Packs/Day Years [...] Office Visit [facility] 112 [facility] 110 [place] [address] Hemmer, Ignacia M, PA [address] [facility] [address] [place] [address] documented as of this encounter Visit Diagnoses Not on filedocumented in this encounter Care Teams Grinder Set Up Operator Thread Relationship Specialty Start Date End Date Venecia Vyas MD [address] [facility] [address] [place] [address] PCP - ACO Reach 12/18/22 Venecia Vyas MD [address] [facility] 110 [place] [address] PCP - General Family Medicine 12/02/22ThursdayYandy LPN [address] [place] [address] Licensed Practical Nurse Family Medicine 10/12/23 Estefani Osman, ALIA [address] [place] [address] Licensed Practical Nurse Family Medicine 09/02/2410/14 Celeste Chung LPN [address] [facility] 110 [place] [address] 10/14/24 documented as of this encounter
--- OUTSIDE RECORDS SUMMARY | 2025-02-02 14:54 | XMS_ITS | Encounter Summary ---
Author Organization [facility] Address [address] [facility] [place] [address] Care Team Providers Care Investigations Director Name Role Phone Venecia Vyas MD Unavailable Venecia Vyas MD Primary Care Provider [phone], Yandy RESIDENT MANAGER Unavailable [phone] Estefani Osman RN Unavailable [phone] Chung, Celeste RESIDENT MANAGER Unavailable Encounter Details Date Type Department Care Team (Late st Contact Info) Description 07/08/2023 Orders Only [facility] [address] [facility] 110 [place] [address] A, Unknown Practice [address] [place], [place] [address] Social History Tobacco Use Types Packs/Day Years [...] CI FM [address] [facility] 110 [place] [address] Ignacia Simeon, PA [address] [facility] 110 [place] [address] documented as of this encounter Procedures Procedure Name Priority Date/Time Associated Diagnosis Comments SCANNED LABS Routine 07/08/2023 4:11 PM EST documented in this encounter Results * SCANNED LABS (07/08/2023 4:11 PM EST) us Unknown Practice A LAB CHG PERFORMABLES Final Re sult documented in this encounter Visit Diagnoses Not on filedocumented in this encounter Care Teams Investigations Director Relationship Specialty Start Date End Date Venecia Vyas MD [address] [facility] 110 [place] [address] PCP - ACO Reach 12/18/22 Venecia Vyas MD [address] [facility] 110 [place] [address] PCP - General Family Medicine 12/02/22ThursdayYandy LPN [address] [facility] 110 [place] [address] Licensed Practical Nurse Family Medicine 10/12/23 Estefani Osman, RN [address] [facility] [place] [address] Licensed Practical Nurse Family Medicine 09/02/2410/14 Celeste Chung LPN [address] [facility] 110 [place] [address] 10/14/24 documented as of this encounter
--- OUTSIDE RECORDS SUMMARY | 2025-02-02 14:54 | XMS_ITS | Encounter Summary ---
Author Organization [facility] Address [address] [facility] [place] [address] Care Team Providers Care Heel Edge Inker Machine Name Role Phone Venecia Vyas MD Unavailable Venecia Vyas MD Primary Care Provider [phone], Yandy BAD WORK GATHERER Unavailable [phone] Estefani Osman RN Unavailable [phone] Chung, Celeste BAD WORK GATHERER Unavailable Encounter Details Date Type Department Care Team (Late st Contact Info) Description 03/05/2023 Abstract [facility] 112 [facility] 110 [place] [address] Kody Acosta MD 112 [place] [facility] 110 [place] [address] Social History Tobacco Use Types Packs/Day Years Used Date Smoking Tobacco: Never Assessed Comments Unknown Sex and Gender Information Value Date Recorded Sex Assigned at Not on file Legal Sex Female 6:42 PM EDT Gender Identity Not on file Sexual Orientation Not on file documented as of this encounter Plan of Treatment Upcoming Encounters Date Type Department Care Team (Late st Contact Info) Description 02/28/2025 10:30 AM EDT Office Visit [facility] 112 [facility] 110 [place] [address] Ignacia Simeon PA [address] [place] [facility] 110 [place] [address] documented as of this encounter Visit Diagnoses Not on filedocumented in this encounter Care Teams Heel Edge Inker Machine Relationship Specialty Start Date End Date Venecia Vyas MD [address] [facility] [address] [place] [address] PCP - ACO Reach 12/18/22 Venecia Vyas MD [address] [facility] [address] [place] [address] PCP - General Family Medicine 12/02/22ThursdayYandy LPN [address] [place] [address] Licensed Practical Nurse Family Medicine 10/12/23 Estefani Osman, RN [address] [place] [address] Licensed Practical Nurse Family Medicine 09/02/2410/14 Celeste Chung LPN [address] [facility] 110 [place] [address] 10/14/24 documented as of this encounter
--- OUTSIDE RECORDS SUMMARY | 2025-02-02 14:54 | XMS_ITS | Encounter Summary ---
Author Organization [facility] Address [address] [facility] [place] [address] Care Team Providers Care Supply Chain Assistant Name Role Phone Venecia Vyas MD Unavailable Venecia Vyas MD Primary Care Provider [phone], Yandy COMMERCIAL FISHING VESSEL OPERATOR Unavailable [phone] Estefani Osman RN Unavailable Chung, Celeste COMMERCIAL FISHING VESSEL OPERATOR Unavailable Encounter Details Date Type Department Care Team (Late Contact Info) Description 04/01/2023 Abstract [facility] 112 [facility] 110 [place] [address] Venecia Vyas MD [address] [place] [facility] 110 [place] [address] Social History Tobacco Use Types Packs/Day Years [...] Office Visit [facility] 112 [facility] 110 [place] [address] Hemmer, Ignacia M, PA [address] [facility] [address] [place] [address] documented as of this encounter Visit Diagnoses Not on filedocumented in this encounter Care Teams Supply Chain Assistant Relationship Specialty Start Date End Date Venecia Vyas MD [address] [facility] [address] [place] [address] PCP - ACO Reach 12/18/22 Venecia Vyas MD [address] [facility] 110 [place] [address] PCP - General Family Medicine 12/02/22ThursdayYandy LPN [address] [place] [address] Licensed Practical Nurse Family Medicine 10/12/23 Estefani Osman, ALIA [address] [place] [address] Licensed Practical Nurse Family Medicine 09/02/2410/14 Celeste Chung LPN [address] [facility] 110 [place] [address] 10/14/24 documented as of this encounter
--- OUTSIDE RECORDS SUMMARY | 2025-02-02 14:54 | XMS_ITS | Encounter Summary ---
Author Organization [facility] Address [address] [facility] [place] [address] Care Team Providers Care Web Marketing Strategist Name Role Phone Venecia Vyas MD Unavailable Venecia Vyas MD Primary Care Provider [phone], Yandy AUTOMATIC CLIPPER AND STRIPPER Unavailable [phone] Estefani Osman RN Unavailable Chung, Celeste AUTOMATIC CLIPPER AND STRIPPER Unavailable Encounter Details Date Type Department Care Team (Late Contact Info) Description 04/15/2023 Abstract [facility] 112 [facility] 110 [place] [address] Venecia Vyas MD [address] [place] [facility] 110 [place] [address] Social History Tobacco Use Types Packs/Day Years [...] Office Visit [facility] 112 [facility] 110 [place] [address] Hemmer, Ignacia M, PA [address] [facility] [address] [place] [address] documented as of this encounter Visit Diagnoses Not on filedocumented in this encounter Care Teams Web Marketing Strategist Relationship Specialty Start Date End Date Venecia Vyas MD [address] [facility] [address] [place] [address] PCP - ACO Reach 12/18/22 Venecia Vyas MD [address] [facility] 110 [place] [address] PCP - General Family Medicine 12/02/22ThursdayYandy LPN [address] [place] [address] Licensed Practical Nurse Family Medicine 10/12/23 Estefani Osman, ALIA [address] [place] [address] Licensed Practical Nurse Family Medicine 09/02/2410/14 Celeste Chung LPN [address] [facility] 110 [place] [address] 10/14/24 documented as of this encounter
--- OUTSIDE RECORDS SUMMARY | 2025-02-02 14:54 | XMS_ITS | Encounter Summary ---
Author Organization [facility] Address [address] [facility] [place] [address] Care Team Providers Care Milk Of Lime Slaker Name Role Phone Venecia Vyas MD Unavailable Venecia Vyas MD Primary Care Provider [phone], Yandy SPECIAL TECHNICAL OPERATIONS OFFICER Unavailable [phone] Estefani Osman RN Unavailable [phone] Chung, Celeste SPECIAL TECHNICAL OPERATIONS OFFICER Unavailable Encounter Details Date Type Department Care Team (Late st Contact Info) Description 11/09/2023 Abstract [facility] 112 [facility] 110 [place] [address] Venecia Vyas MD 112 [facility] 110 [place] [address] Social History Tobacco Use Types Packs/Day Years Used Date Smoking Tobacco: Never Smokeless Tobacco: Never Alcohol Use Standard Drinks/Week Comments Never 0 (1 standard drink = 0.6 oz pure alcohol) caffeine: chocolate, coffee,soda,tea Humiliation, Afraid, Rape, and Kick questionnair e [...] How often do you attend chur or mormon services? 1 to 4 times per year 10/14/2023 Do you belong to any clubs o r organizations such as restorationist groups, unions, fraternal or athletic groups, or [...] Recorded Patient Health Questionnaire-2 Score 0 03/24/2023 [facility] - Occupational [...] place to sleep or slept in a correction (including now)? No 10/14/2023 Comments Unknown Sex [...] Office Visit [facility] [address] [facility] 110 [place] [address] Ignacia Simeon PA [address] [facility] 110 [place] [address] documented as of this encounter Visit Diagnoses Not on filedocumented in this encounter Additional Health Concerns Assessment Noted Time A fall risk assessment has been complete d for the patient 10/14/2023 9:55 AM EDT documented as of this encounter Care Teams Milk Of Lime Slaker Relationship Specialty Start Date End Date Venecia Vyas MD [address] [facility] 110 [place] [address] PCP - ACO Reach 12/18/22 Venecia Vyas MD [address] [facility] [address] [place] [address] PCP - General Family Medicine 12/02/22ThursdayYandy LPN [address] [place] [address] Licensed Practical Nurse Family Medicine 10/12/23 Estefani Osman, RN [address] [place] [address] Licensed Practical Nurse Family Medicine 09/02/2410/14 Celeste Chung LPN [address] [facility] 110 [place] [address] 10/14/24 documented as of this encounter
--- OUTSIDE RECORDS SUMMARY | 2025-02-02 14:54 | XMS_ITS | Encounter Summary ---
Author Organization [facility] Address [address] [facility] [place] [address] Care Team Providers Care Waste Machine Operator Name Role Phone Venecia Vyas MD Unavailable Venecia Vyas MD Primary Care Provider [phone], Yandy SUPERVISOR BLOOMING MILL Unavailable [phone] Estefani Osman RN Unavailable Chung, Celeste SUPERVISOR BLOOMING MILL Unavailable Encounter Details Date Type Department Care Team (Late Contact Info) Description 07/16/2023 Abstract [facility] 112 [facility] 110 [place] [address] Venecia Vyas MD [address] [facility] 110 [place], [place] [address] Social History Tobacco Use Types Packs/Day Years [...] Office Visit [facility] FM 112 [facility] 110 [place] [address] Ignacia Simeon PA [address] [facility] [address] [place] [address] documented as of this encounter Visit Diagnoses Not on filedocumented in this encounter Care Teams Waste Machine Operator Relationship Specialty Start Date End Date Venecia Vyas MD [address] [facility] [address] [place] [address] PCP - ACO Reach 12/18/22 Venecia Vyas MD [address] [facility] [address] [place] [address] PCP - General Family Medicine 12/02/22ThursdayYandy LPN [address] [place] [address] Licensed Practical Nurse Family Medicine 10/12/23 Estefani Osman, RN [address] [place] [address] Licensed Practical Nurse Family Medicine 09/02/2410/14 Celeste Chung LPN [address] [facility] 110 [place] [address] 10/14/24 documented as of this encounter
--- OUTSIDE RECORDS SUMMARY | 2025-02-02 14:54 | XMS_ITS | Encounter Summary ---
Author Organization [facility] Address [address] [facility] [place] [address] Care Team Providers Care Rear Load Truck Driver Name Role Phone Venecia Vyas MD Unavailable Venecia Vyas MD Primary Care Provider [phone], Yandy CINETECHNICIAN Unavailable [phone] Estefani Osman RN Unavailable [phone] Chung, Celeste CINETECHNICIAN Unavailable Encounter Details Date Type Department Care Team (Late st Contact Info) Description 03/05/2023 Orders Only [facility] [address] [facility] 110 [place] [id number] A, Unknown Practice [address] [place], [place] [address] Social History Tobacco Use Types Packs/Day Years [...] CI FM [address] [facility] [address] [place] [address] Ignacia Simeon PA [address] [facility] [address] [place] [address] documented as of this encounter Procedures Procedure Name Priority Date/Time Associated Diagnosis Comments SCANNED LABS Routine 03/05/2023 3:18 PM EDT documented in this encounter Results * SCANNED LABS (03/05/2023 3:18 PM EDT) us Unknown Practice A LAB CHG PERFORMABLES Final Re sult documented in this encounter Visit Diagnoses Not on filedocumented in this encounter Care Teams Rear Load Truck Driver Relationship Specialty Start Date End Date Venecia Vyas MD [address] [facility] [address] [place] [address] PCP - ACO Reach 12/18/22 Venecia Vyas MD [address] [facility] [address] [place] [address] PCP - General Family Medicine 12/02/22ThursdayYandy LPN [address] [place] [address] Licensed Practical Nurse Family Medicine 10/12/23 Estefani Osman, RN [address] [place] [address] Licensed Practical Nurse Family Medicine 09/02/2410/14 Celeste Chung LPN [address] [facility] 110 [place] [address] 10/14/24 documented as of this encounter
--- OUTSIDE RECORDS SUMMARY | 2025-02-02 14:54 | XMS_ITS | Encounter Summary ---
Author Organization [facility] Address [address] [facility] [place] [address] Care Team Providers Care Blind Teacher Name Role Phone Venecia Vyas MD Unavailable Venecia Vyas MD Primary Care Provider [phone], Yandy MAGNETO SPECIALIST Unavailable [phone] Estefani Osman RN Unavailable [phone] Chung, Celeste MAGNETO SPECIALIST Unavailable Encounter Details Date Type Department Care Team (Late Contact Info) Description 05/19/2023 Abstract [facility] FM [address] [facility] 110 [place] [address] Venecia Vyas MD [address] [place] 110 [place], [place] [address] Social History Tobacco Use Types Packs/Day Years [...] Office Visit [facility] FM [address] [facility] 110 [place] [address] Ignacia Simeon PA [address] [facility] [address] [place] [address] documented as of this encounter Visit Diagnoses Not on filedocumented in this encounter Care Teams Blind Teacher Relationship Specialty Start Date End Date Venecia Vyas MD [address] [facility] [address] [place] [address] PCP - ACO Reach 12/18/22 Venecia Vyas MD [address] [facility] [address] [place] [address] PCP - General Family Medicine 12/02/22ThursdayYandy LPN [address] [place] [address] Licensed Practical Nurse Family Medicine 10/12/23 Estefani Osman, RN [address] [place] [address] Licensed Practical Nurse Family Medicine 09/02/2410/14 Celeste Chung LPN [address] [facility] 110 [place] [address] 10/14/24 documented as of this encounter
--- OUTSIDE RECORDS SUMMARY | 2025-02-02 14:54 | XMS_ITS | Encounter Summary ---
Author Organization [facility] Address [address] [facility] [place] [address] Care Team Providers Care Hardware Press Operator Name Role Phone Venecia Vyas MD Unavailable Venecia Vyas MD Primary Care Provider [phone], Yandy SHIPPING MANAGER Unavailable [phone] Estefani Osman RN Unavailable [phone] Chung, Celeste SHIPPING MANAGER Unavailable Encounter Details Date Type Department Care Team (Late Contact Info) Description 05/28/2023 Abstract [facility] FM 112 [facility] [facility] 110 [place] [address] Venecia Vyas MD [address] [facility] 110 [place], [place] [id number] Social History Tobacco Use Types Packs/Day Years [...] Office Visit [facility] CI FM 112 [facility] [facility] 110 [place] [address] Ignacia Simeon PA [address] [facility] [address] [place] [address] documented as of this encounter Visit Diagnoses Not on filedocumented in this encounter Care Teams Hardware Press Operator Relationship Specialty Start Date End Date Venecia Vyas MD [address] [facility] [address] [place] [address] PCP - ACO Reach 12/18/22 Venecia Vyas MD [address] [facility] [address] [place] [address] PCP - General Family Medicine 12/02/22ThursdayYandy LPN [address] [place] [address] Licensed Practical Nurse Family Medicine 10/12/23 Estefani Osman, RN [address] [place] [address] Licensed Practical Nurse Family Medicine 09/02/2410/14 Celeste Chung LPN [address] [facility] 110 [place] [address] 10/14/24 documented as of this encounter
--- OUTSIDE RECORDS SUMMARY | 2025-02-02 14:54 | XMS_ITS | Encounter Summary ---
Author Organization [facility] Address [address] [facility] [place] [address] Care Team Providers Care Preparation Supervisor Canning Name Role Phone Venecia Vyas MD Unavailable Venecia Vyas MD Primary Care Provider [phone], Yandy FLAME CHANNELER Unavailable [phone] Estefani Osman RN Unavailable Chung, Celeste FLAME CHANNELER Unavailable Encounter Details Date Type Department Care Team (Late st Contact Info) Description 12/31/2022 Orders Only [facility] CI FM [address] [facility] 110 [place] [id number] eVnecia Vyas MD [address] [facility] 110 [place] [address] Social History Tobacco Use Types Packs/Day Years [...] FM [address] [facility] 110 [place] [address] Ignacia Simeon PA [address] [facility] 110 [place] [address] documented as of this encounter Procedures Procedure Name Priority Date/Time Associated Diagnosis Comments SCANNED LABS Routine 12/25/2022 8:55 AM EDT documented in this encounter Results * SCANNED LABS (12/25/2022 8:55 AM EDT) Venecia Vyas MD LAB CHG PERFORMABLES Final Resul t documented in this encounter Visit Diagnoses Not on filedocumented in this encounter Care Teams Preparation Supervisor Canning Relationship Specialty Start Date End Date Venecia Vyas MD [address] [facility] [address] [place] [address] PCP - ACO Reach 12/18/22 Venecia Vyas MD [address] [facility] [address] [place] [address] PCP - General Family Medicine 12/02/22Thursday, NESSA Kebede [address] [place] [address] Licensed Practical Nurse Family Medicine 10/12/23 Estefani Osman, RN [address] [place] [address] Licensed Practical Nurse Family Medicine 09/02/2410/14 Celeste Chung LPN [address] [facility] 110 [place] [address] 10/14/24 documented as of this encounter
--- OUTSIDE RECORDS SUMMARY | 2025-02-02 14:55 | XMS_ITS | Clinical Summary ---
Author Organization [facility] Address [address] [place] [address] Phone Care Team Providers Care Poker In Name Role Phone Unavailable Primary Care Provider Unavailabl e Social History Tobacco Use Types Packs/Day Years Used Date Smoking Tobacco: Never Assessed Comments Unknown Sex and Gender Information Value Date Recorded Sex Assigned at Not on file Legal Sex Female 9:27 PM EST Gender Identity Not on file Sexual Orientation Not on file Plan of Treatment Not on file
--- OUTSIDE RECORDS SUMMARY | 2025-02-02 14:55 | XMS_ITS | Encounter Summary ---
Author Organization [facility] Address [address] [place] [address] Care Team Providers Care Track Man Name Role Phone Venecia King MD Unavailable Venecia King MD Primary Care Provider [phone], Yandy ANIME ARTIST Unavailable [phone] Estefani Osman RN Unavailable [phone] ChungCeleste ANIME ARTIST Unavailable Encounter Details Date Type Department Care Team (Late st Contact Info) Description 03/15/2024 Clinisync Result Encounter [facility] External Department Unsolicited Ignacia Simeon, PA 112 [facility] 110 [place] [address] Social History Tobacco Use Types Packs/Day Years [...] How often do you attend chur or gnosticist services? 1 to 4 times per year 10/14/2023 Do you belong to any clubs o r organizations such as voodoo groups, unions, fraternal or athletic groups, or [...] Recorded Patient Health Questionnaire-2 Score 0 03/24/2023 [facility] [place] of Occupat ional Health - Occupational Stress [...] to sleep or slept in a senior living (including now)? No 10/14/2023 Comments Unknown Sex [...] Office Visit [facility] INDER [address] [facility] 110 [place] [address] Ignacia Simeon PA [address] [facility] 110 [place] [address] documented as of this encounter Procedures Procedure Name Priority Date/Time Associated Diagnosis Comments CA ECHO DOPPLER COMPLETE 03/15/2024 7:05 PM EDT documented in this encounter Results * CA ECHO DOPPLER COMPLETE (03/15/2024 7:05 PM EDT) Anatomical Region Laterality Modality Other 03/15/2024 7:05 PM EDT Narrative 03/15/2024 7:05 PM EDT The [address] [address] Cardiology Report Signed Patient: LESLIE MATHIS MR#: [id number] : 1950 Acct:[id number] Age/Sex: 73 / F ADM Date: 03/15/24 Loc: CARD Attending Dr: IGNACIA SIMEON Ordering Physician: IGNACIA SIMEON Date of Service: 03/15/24 Procedure(s): CA echo doppler complete Accession Number(s): [id number] cc: VENECIA KING ; IGNACIA SIMEON Patient Name: LESLIE MATHIS MR#: [id number] : 1950 Exam Date: 03/15/2024 Ordering Doctor: DR IGNACIA SMIEON PA ECHOCARDIOGRAM REPORT PROCEDURE: CA ECHO DOPPLER COMPLETE INDICATIONS: Paroxysmal Afib, HTN, DODSON, LE edema, LA dilatation COMPARISON: None. DESCRIPTION: COMPLETE ECHOCARDIOGRAM Real-time transthoracic echocardiography with 2D, M-mode, spectral and color flow Doppler performed. QUALITY: Technical quality was good. LEFT VENTRICLE: Normal chamber size. Borderline left ventricular hypertrophy. Global left ventricular systolic function is normal. LV EF: Estimated left ventricular ejection fraction is 55%. DIASTOLIC: Not adequately assessed due to heart rhythm. ATRIAL SEPTUM: Doppler studies reveal an intra-cardiac shunt. Shunting appears to be left to right by color doppler. LEFT ATRIUM: Severe dilatation. RIGHT ATRIUM: Severe dilatation. RIGHT VENTRICLE: Normal chamber size. Normal right ventricular systolic function. TRICUSPID VALVE: Normal mobility and thickness. No stenosis with mild to moderate regurgitation. Mild pulmonary hypertension. RVSP 40 mmHg MITRAL VALVE: Normal mobility and thickness. No evidence of mitral valve stenosis. There is no mitral annular calcification. Trivial mitral regurgitation. AORTIC VALVE: Normal trileaflet appearance. Mildly calcified aortic valve. Normal mobility. No aortic valve stenosis. No aortic regurgitation. AORTIC ROOT: Normal diameter and appearance. PULMONIC VALVE: Normal thickness and mobility. No stenosis. Trivial regurgitation. PERICARDIUM: No evidence of pericardial effusion. IVC: Not well visualized. PLEURA: CONCLUSION: 1. Normal left ventricular size and systolic function. LVEF is 55%. 2. Normal right ventricular size and systolic function. 3. Severe biatrial dilatation. 4. Mild to moderate tricuspid regurgitation. 5. Mildly elevated right-sided pressures. 6. There is evidence of a small atrial septal defect with [id number] shunting by color Doppler. Adult Echocardiography Procedure Report Left Ventricle LVEDD (3.7 - 5.6 cm): 4.56 cm LVESD (2.2 - 4.0 cm): 3.12 cm LVIVS thickness (0.6 - 1.2 cm): 1.01 cm LVPW thickness (0.5 - 1.0 cm): 0.88 cm e': 0.14 m/s E - e': 6.51 LVOT Max Gradient: 2.09 mm[Hg] LVOT Area (cm2): 0.72 m/s Peak Velocity (LVOT): 0.72 m/s Mean Velocity (LVOT): 0.48 m/s LVOT Diameter 1.95 cm Left Ventricular Ejection Fraction: 55% Left Atrium LA Volume Index (2D A2C): 60.33 ml/m2 Left Atrium Systolic Dimension: 4.68 cm Mitral Valve Mitral Valve E-Wave Peak Velocity: 0.89 m/s Right Ventricle RV Internal Diastolic Dimension: 3.60 cm Aorta AO Root Diam: 2.74 cm Ascending Ao Diam: 3.04 cm Aortic Valve AoV Area (Peak Rk): 1.59 cm2, 1.59 cm2 AoV Area (VTI): 1.81 cm2, 1.81 cm2 Peak Velocity(Antegrade Flow): 1.36 m/s Peak Gradient(Antegrade Flow): 7.40 mm[Hg] Mean Velocity(Antegrade Flow): 0.83 m/s Mean Gradient(Antegrade Flow): 3.38 mm[Hg] Velocity Time Integral: 24.77 cm Tricuspid Valve Peak Velocity (Regurgitant Flow): 2.67 m/s, 2.75 m/s, 3.03 m/s, 2.74 m/s Pulmonic Valve Mean Gradient: 2.04 mm[Hg], 1.88 mm[Hg], 2.11 mm[Hg] Mean Velocity: 0.68 m/s, 0.65 m/s, 0.71 m/s Peak Velocity: 0.88 m/s Peak Gradient: 3.21 mm[Hg], 2.90 mm[Hg], 3.21 mm[Hg] Right Atrium Right Atrium Systolic Pressure: 98.73 ml, 98.73 ml Dictated by: Sarah Valentin M.D. on 03/15/2024 at 18:59 Approved by: Sarah Valentin M.D. on 03/15/2024 at 19:05 Dictated By: SARAH VALENTIN Signed By: 03/15/241904 DD/ 04 TD/TT: Agile Coach: Procedure Note Radiology, Radiologist, MD - 03/15/2024 [place] [address] Cardiology Report Signed Patient: LESLIE MATHIS RMR#: [id number] : 1950cct:[id number] Age/Sex: 73 / FADM Date: 03/15/24 Loc: CARD Attending Dr: IGNACIA SIMEON Ordering Physician: IGNACIA SIMEON Date of Service: 03/15/24 Procedure(s): CA echo doppler complete Accession Number(s): [id number] cc: VENECIA KING ; IGNACIA SIMEON Patient Name: ELSLIE MATHIS MR#: [id number] : 1950 Exam Date: 03/15/2024 Ordering Doctor: DR IGNACIA MARQUEZ ECHOCARDIOGRAM REPORT PROCEDURE: CA ECHO DOPPLER COMPLETE INDICATIONS: Paroxysmal Afib, HTN, DODSON, LE edema, LA dilatation COMPARISON: None. DESCRIPTION: COMPLETE ECHOCARDIOGRAM Real-time transthoracic echocardiography with 2D, M-mode, spectral and color flow Dopplerperformed. QUALITY: Technical quality was good. LEFT VENTRICLE: Normal chamber size. Borderline left ventricular hypertrophy. Global left ventricular systolic function is normal. LV EF: Estimated left ventricular ejection fraction is 55%. DIASTOLIC: Not adequately assessed due to heart rhythm. ATRIAL SEPTUM: Doppler studies reveal an intra-cardiac shunt.Shunting appears to be left to right by color doppler. LEFT ATRIUM: Severe dilatation. RIGHT ATRIUM: Severe dilatation. RIGHT VENTRICLE: Normal chamber size. Normal right ventricularsystolic function. TRICUSPID VALVE: Normal mobility and thickness. No stenosis with mild to moderate regurgitation. Mild pulmonary hypertension. RVSP 40 mmHg MITRAL VALVE: Normal mobility and thickness. No evidence of mitralvalve stenosis. There is no mitral annular calcification. Trivial mitral regurgitation. AORTIC VALVE: Normal trileaflet appearance. Mildly calcified aorticvalve. Normal mobility. No aortic valve stenosis. No aortic regurgitation. AORTIC ROOT: Normal diameter and appearance. PULMONIC VALVE: Normal thickness and mobility. No stenosis. Trivial regurgitation. PERICARDIUM: No evidence of pericardial effusion. IVC: Not well visualized. PLEURA: CONCLUSION: 1. Normal left ventricular size and systolic function. LVEF is 55%. 2. Normal right ventricular size and systolic function. 3. Severe biatrial dilatation. 4. Mild to moderate tricuspid regurgitation. 5. Mildly elevated right-sided pressures. 6. There is evidence of a small atrial septal defect with [id number] shunting by color Doppler. Adult Echocardiography Procedure Report Left Ventricle LVEDD (3.7 - 5.6 cm): 4.56 cm LVESD (2.2 - 4.0 cm): 3.12 cm LVIVS thickness (0.6 - 1.2 cm): 1.01 cm LVPW thickness (0.5 - 1.0 cm): 0.88 cm e': 0.14 m/s E - e': 6.51 LVOT Max Gradient: 2.09 mm[Hg] LVOT Area (cm2): 0.72 m/s Peak Velocity (LVOT): 0.72 m/s Mean Velocity (LVOT): 0.48 m/s LVOT Diameter 1.95 cm Left Ventricular Ejection Fraction: 55% Left Atrium LA Volume Index (2D A2C): 60.33 ml/m2 Left Atrium Systolic Dimension: 4.68 cm Mitral Valve Mitral Valve E-Wave Peak Velocity: 0.89 m/s Right Ventricle RV Internal Diastolic Dimension: 3.60 cm Aorta AO Root Diam: 2.74 cm Ascending Ao Diam: 3.04 cm Aortic Valve AoV Area (Peak Rk): 1.59 cm2, 1.59 cm2 AoV Area (VTI): 1.81 cm2, 1.81 cm2 Peak Velocity(Antegrade Flow): 1.36 m/s Peak Gradient(Antegrade Flow): 7.40 mm[Hg] Mean Velocity(Antegrade Flow): 0.83 m/s Mean Gradient(Antegrade Flow): 3.38 mm[Hg] Velocity Time Integral: 24.77 cm Tricuspid Valve Peak Velocity (Regurgitant Flow): 2.67 m/s, 2.75 m/s, 3.03 m/s, 2.74m/s Pulmonic Valve Mean Gradient: 2.04 mm[Hg], 1.88 mm[Hg], 2.11 mm[Hg] Mean Velocity: 0.68 m/s, 0.65 m/s, 0.71 m/s Peak Velocity: 0.88 m/s Peak Gradient: 3.21 mm[Hg], 2.90 mm[Hg], 3.21 mm[Hg] Right Atrium Right Atrium Systolic Pressure: 98.73 ml, 98.73 ml Dictated by: Sarah Valentin M.D. on 03/15/2024 at 18:59 Approved by: Sarah Valentin M.D. on 03/15/2024 at 19:05 Dictated By: SARAH VALENTIN Signed By:03/15/241904 DD/ 04 TD/TT: Agile Coach: Ignacia MARQUEZ [facility] Final Result documented in this encounter Visit Diagnoses Not on filedocumented in this encounter Additional Health Concerns Assessment Noted Time A fall risk assessment has been complete d for the patient 10/14/2023 9:55 AM EDT documented as of this encounter Care Teams Track Man Relationship Specialty Start Date End Date Venecia King MD [address] [facility] [address] [place] [address] PCP - ACO Reach 12/18/22 Venecia King MD [address] [facility] 110 [place] [address] PCP - General Family Medicine 12/02/22ThursdayYandy LPN [address] [place] [address] Licensed Practical Nurse Family Medicine 10/12/23 Estefani Osman, RN [address] [place] [address] Licensed Practical Nurse Family Medicine 09/02/2410/14 Celeste Chung LPN [address] [address] 10/14/24 documented as of this encounter
--- OUTSIDE RECORDS SUMMARY | 2025-02-02 14:55 | XMS_ITS | Encounter Summary ---
Author Organization [facility] Address [address] [place] [address] Care Team Providers Care Merchandising Consultant Name Role Phone Venecia Vyas MD Unavailable Venecia Vyas MD Primary Care Provider [phone] Estefani Osman RN Unavailable [phone] Celeste Chung LPN Unavailable Encounter Details Date Type Department Care Team (Late st Contact Info) Description 09/06/2024 Abstract [facility] FM 112 [facility] 110 [place] [address] Venecia Vyas MD 112 [facility] 110 [place] [address] Social History Tobacco Use Types [...] How often do you attend chur or hoahaoism services? 1 to 4 times per year 10/14/2023 Do you belong to any clubs o r organizations such as caodaism groups, unions, fraternal or athletic groups, or [...] Recorded Patient Health Questionnaire-2 Score 0 04/04/2024 [facility] of Occupat ionpa Health - Occupational Stress Questionnaire Answer Date [...] place to sleep or slept in a custodial (including now)? No 10/14/2023 Comments Unknown Sex [...] Office Visit [facility] FM [address] [facility] 110 [place] [address] Ignacia Simeon PA [address] [facility] 110 [place] [address] documented as of this encounter Visit Diagnoses Not on filedocumented in this encounter Additional Health Concerns Assessment Noted Time A fall risk assessment has been complete d for the patient 10/14/2023 9:55 AM EDT documented as of this encounter Care Teams Merchandising Consultant Relationship Specialty Start Date End Date Venecia Vyas MD [address] [facility] 110 [place] [address] PCP - ACO Reach 12/18/22 Venecia Vyas MD [address] [facility] [address] [place], [place] [address] PCP - General Family Medicine 12/02/22 Estefani Osman, RN [address] [place] [address] Licensed Practical Nurse Family Medicine 09/02/2410/14 Celeste Chung LPN [address] [facility] [address] [place] [address] 10/14/24 documented as of this encounter
--- OUTSIDE RECORDS SUMMARY | 2025-02-02 14:55 | XMS_ITS | Encounter Summary ---
Author Organization [facility] Address [address] [facility] [place] [address] Care Team Providers Care Steel Rule Die Maker Apprentice Name Role Phone Venecia Vyas MD Unavailable Venecia Vyas MD Primary Care Provider [phone], Yandy NAVY SENIOR OFFICER Unavailable [phone] Estefani Osman RN Unavailable [phone] Chung, Celeste NAVY SENIOR OFFICER Unavailable Encounter Details Date Type Department Care Team (Late st Contact Info) Description 03/09/2024 Abstract [facility] CI FM 112 [facility] 110 [place] [id number] Venecia Vyas MD 112 [facility] 110 [place] [address] Social History Tobacco Use Types [...] How often do you attend chur or buddhism services? 1 to 4 times per year 10/14/2023 Do you belong to any clubs o r organizations such as lutheran groups, unions, fraternal or athletic groups, or [...] Recorded Patient Health Questionnaire-2 Score 0 03/24/2023 [facility] of Occupat ional Health - Occupational [...] place to sleep or slept in a chcf (including now)? No 10/14/2023 Comments Unknown Sex [...] Office Visit [facility] FM [address] [facility] 110 [place] [address] Ignacia Simeon PA [address] [facility] 110 [place] [address] documented as of this encounter Visit Diagnoses Not on filedocumented in this encounter Additional Health Concerns Assessment Noted Time A fall risk assessment has been complete d for the patient 10/14/2023 9:55 AM EDT documented as of this encounter Care Teams Steel Rule Die Maker Apprentice Relationship Specialty Start Date End Date Venecia Vyas MD [address] [facility] 110 [place] [address] PCP - ACO Reach 12/18/22 Venecia Vyas MD [address] [facility] [address] [place] [address] PCP - General Family Medicine 12/02/22ThursdayYandy LPN [address] [place] [address] Licensed Practical Nurse Family Medicine 10/12/23 Estefani Osman, RN [address] [place] [address] Licensed Practical Nurse Family Medicine 09/02/2410/14 Celeste Chung LPN [address] [facility] 110 [place] [address] 10/14/24 documented as of this encounter
--- OUTSIDE RECORDS SUMMARY | 2025-02-02 14:55 | XMS_ITS | Encounter Summary ---
Author Organization [facility] Address [address] [facility] [place] [address] Care Team Providers Care Metal Engraver Name Role Phone Venecia Vyas MD Unavailable Venecia Vyas MD Primary Care Provider [phone], Yandy ROAD BUILDER Unavailable [phone] Estefani Osman RN Unavailable [phone] Chung, Celeste ROAD BUILDER Unavailable Encounter Details Date Type Department Care Team (Late st Contact Info) Description 12/17/2023 Abstract [facility] CI FM 112 [facility] 110 [place] [address] Venecia Vyas MD 112 [facility] 110 [place] [address] Social History Tobacco Use Types [...] How often do you attend chur or spiritism services? 1 to 4 times per year [...] Recorded Patient Health Questionnaire-2 Score 0 03/24/2023 [facility] of Occupat ional Health - Occupational [...] place to sleep or slept in a group home (including now)? No 10/14/2023 Comments Unknown Sex [...] Office Visit [facility] FM [address] [facility] 110 [place] [address] Ignacia Simeon PA [address] [facility] 110 [place] [address] documented as of this encounter Visit Diagnoses Not on filedocumented in this encounter Additional Health Concerns Assessment Noted Time A fall risk assessment has been complete d for the patient 10/14/2023 9:55 AM EDT documented as of this encounter Care Teams Metal Engraver Relationship Specialty Start Date End Date Venecia Vyas MD [address] [facility] 110 [place] [address] PCP - ACO Reach 12/18/22 Venecia Vyas MD [address] [facility] [address] [place] [address] PCP - General Family Medicine 12/02/22ThursdayYandy LPN [address] [place] [address] Licensed Practical Nurse Family Medicine 10/12/23 Estefani Osman, RN [address] [place] [address] Licensed Practical Nurse Family Medicine 09/02/2410/14 Celeste Chung LPN [address] [facility] 110 [place] [address] 10/14/24 documented as of this encounter
--- OUTSIDE RECORDS SUMMARY | 2025-02-02 14:55 | XMS_ITS | Encounter Summary ---
Author Organization [facility] Address [address] [facility] [address] Care Team Providers Care Wood Repatcher Name Role Phone Venecia Vyas MD Unavailable Venecia Vyas MD Primary Care Provider [phone], Yandy HAIRSPRING FABRICATION SUPERVISOR Unavailable [phone] Estefani Osman RN Unavailable [phone] Chung, Celeste HAIRSPRING FABRICATION SUPERVISOR Unavailable Encounter Details Date Type Department Care Team (Late st Contact Info) Description 07/21/2024 Abstract [facility] FM [address] [facility] 110 [place] [phone] Venecia Vyas MD 112 [facility] 110 [place] [address] Social History Tobacco Use Types [...] How often do you attend chur or quaker services? 1 to 4 times per year 10/14/2023 Do you belong to any clubs o r organizations such as pentecostalism groups, unions, fraternal or athletic groups, or [...] Recorded Patient Health Questionnaire-2 Score 0 04/04/2024 [facility] of Occupat ional Health - Occupational Stress [...] Office Visit [facility] FM [address] [facility] 110 [place] [address] Ignacia Simeon PA [address] [facility] 110 [place] [address] documented as of this encounter Visit Diagnoses Not on filedocumented in this encounter Additional Health Concerns Assessment Noted Time A fall risk assessment has been complete d for the patient 10/14/2023 9:55 AM EDT documented as of this encounter Care Teams Wood Repatcher Relationship Specialty Start Date End Date Venecia Vyas MD [address] [facility] 110 [place] [address] PCP - ACO Reach 12/18/22 Venecia Vyas MD [address] [facility] 110 [place] [address] PCP - General Family Medicine 12/02/22ThursdayYandy LPN [address] [facility] 110 [place] [address] Licensed Practical Nurse Family Medicine 10/12/23 Estefani Osman, RN [address] [place], [place] [address] Licensed Practical Nurse Family Medicine 09/02/2410/14 Celeste Chung LPN [address] [facility] 110 [place] [address] 10/14/24 documented as of this encounter
--- OUTSIDE RECORDS SUMMARY | 2025-02-02 14:55 | XMS_ITS | Encounter Summary ---
Author Organization [facility] Address [address] [facility] [place] [address] Care Team Providers Care Certified Histologic Technician Name Role Phone Venecia Vyas MD Unavailable Venecia Vyas MD Primary Care Provider [phone], Yandy CLAIMS ADJUSTER SUPERVISOR Unavailable [phone] Estefani Osman RN Unavailable [phone] Chung, Celeste CLAIMS ADJUSTER SUPERVISOR Unavailable Encounter Details Date Type Department Care Team (Late st Contact Info) Description 07/04/2024 Abstract [facility] CI FM 112 [facility] 110 [place] [address] Venecia Vyas MD 112 [facility] 110 [place] [address] Social History Tobacco Use Types [...] How often do you attend chur or adventism services? 1 to 4 times per year 10/14/2023 Do you belong to any clubs o r organizations such as yarsanism groups, unions, fraternal or athletic groups, or [...] Recorded Patient Health Questionnaire-2 Score 0 04/04/2024 [facility] [place] of Occupat ional Health - Occupational Stress [...] Office Visit [facility] FM [address] [facility] 110 [place] [address] Ignacia Simeon PA [address] [facility] 110 [place] [address] documented as of this encounter Visit Diagnoses Not on filedocumented in this encounter Additional Health Concerns Assessment Noted Time A fall risk assessment has been complete d for the patient 10/14/2023 9:55 AM EDT documented as of this encounter Care Teams Certified Histologic Technician Relationship Specialty Start Date End Date Venecia Vyas MD [address] [facility] 110 [place] [address] PCP - ACO Reach 12/18/22 Venecia Vyas MD [address] [facility] 110 [place] [address] PCP - General Family Medicine 12/02/22ThursdayYandy LPN [address] [facility] 110 [place] [address] Licensed Practical Nurse Family Medicine 10/12/23 Estefani Osman, RN [address] [place], [place] [address] Licensed Practical Nurse Family Medicine 09/02/2410/14 Celeste Chung LPN [address] [facility] 110 [place] [address] 10/14/24 documented as of this encounter
--- OUTSIDE RECORDS SUMMARY | 2025-02-02 14:55 | XMS_ITS | Encounter Summary ---
Author Organization [facility] Address [address] [facility] [place] [address] Care Team Providers Care Package Worker Name Role Phone Venecia Vyas MD Unavailable Venecia Vyas MD Primary Care Provider [phone], Yandy SHEET ROCK NAILER Unavailable [phone] Estefani Osman RN Unavailable [phone] Chung, Celeste SHEET ROCK NAILER Unavailable Encounter Details Date Type Department Care Team (Late st Contact Info) Description 04/05/2024 Abstract [facility] 112 [facility] 110 [place] [address] Venecia Vyas MD 112 [facility] 110 [place] [address] Social History Tobacco Use Types [...] How often do you attend chur or hindu services? 1 to 4 times per year [...] Recorded Patient Health Questionnaire-2 Score 0 04/04/2024 [facility] of Occupat ional Health - Occupational Stress [...] Office Visit [facility] [address] [facility] 110 [place] [address] Ignacia Simeon PA [address] [facility] 110 [place] [address] documented as of this encounter Visit Diagnoses Not on filedocumented in this encounter Additional Health Concerns Assessment Noted Time A fall risk assessment has been complete d for the patient 10/14/2023 9:55 AM EDT documented as of this encounter Care Teams Package Worker Relationship Specialty Start Date End Date Venecia Vyas MD [address] [facility] 110 [place] [address] PCP - ACO Reach 12/18/22 Venecia Vyas MD [address] [facility] 110 [place] [address] PCP - General Family Medicine 12/02/22ThursdayYandy LPN [address] [facility] 110 [place] [address] Licensed Practical Nurse Family Medicine 10/12/23 Estefani Osman, RN [address] [place], [place] [address] Licensed Practical Nurse Family Medicine 09/02/2410/14 Celeste Chung LPN [address] [facility] 110 [place] [address] 10/14/24 documented as of this encounter
--- OUTSIDE RECORDS SUMMARY | 2025-02-02 14:55 | XMS_ITS | Encounter Summary ---
Author Organization [facility] Address [address] [facility] [place] [address] Care Team Providers Care Piping Blocker Name Role Phone Venecia Vyas MD Unavailable Venecia Vyas MD Primary Care Provider [phone], Yandy ASSISTANT QUALITY MANAGER Unavailable [phone] Estefani Osman RN Unavailable [phone] Chung, Celeste ASSISTANT QUALITY MANAGER Unavailable Encounter Details Date Type Department Care Team (Late st Contact Info) Description 04/06/2024 Abstract [facility] 112 [facility] 110 [place] [address] Venecia Vyas MD 112 [facility] 110 [place] [address] Social History Tobacco Use Types [...] How often do you attend chur or latter day services? 1 to 4 times per year 10/14/2023 Do you belong to any clubs o r organizations such as judaism groups, unions, fraternal or athletic groups, or [...] Recorded Patient Health Questionnaire-2 Score 0 04/04/2024 [facility] of Occupat ional Health - Occupational Stress [...] place to sleep or slept in a snf (including now)? No 10/14/2023 Comments Unknown Sex [...] Office Visit [facility] [address] [facility] 110 [place] [address] Ignacia Simeon PA [address] [facility] 110 [place] [address] documented as of this encounter Visit Diagnoses Not on filedocumented in this encounter Additional Health Concerns Assessment Noted Time A fall risk assessment has been complete d for the patient 10/14/2023 9:55 AM EDT documented as of this encounter Care Teams Piping Blocker Relationship Specialty Start Date End Date Venecia Vyas MD [address] [facility] 110 [place] [address] PCP - ACO Reach 12/18/22 Venecia Vyas MD [address] [facility] 110 [place] [address] PCP - General Family Medicine 12/02/22ThursdayYandy LPN [address] [facility] 110 [place] [address] Licensed Practical Nurse Family Medicine 10/12/23 Estefani Osman, RN [address] [place], [place] [address] Licensed Practical Nurse Family Medicine 09/02/2410/14 Celeste Chung LPN [address] [facility] 110 [place] [address] 10/14/24 documented as of this encounter
--- OUTSIDE RECORDS SUMMARY | 2025-02-02 14:55 | XMS_ITS | Encounter Summary ---
Author Organization [facility] Address [address] [facility] [place] [address] Care Team Providers Care Civil Preparedness Coordinator Name Role Phone Venecia Vyas MD Unavailable Venecia Vyas MD Primary Care Provider [phone], Yandy LIVESTOCK NUTRITIONIST Unavailable [phone] Estefani Osman RN Unavailable [phone] Chung, Celeste LIVESTOCK NUTRITIONIST Unavailable Encounter Details Date Type Department Care Team (Late st Contact Info) Description 05/03/2024 Abstract [facility] 112 [facility] 110 [place] [address] Venecia Vyas MD 112 [facility] 110 [place] [address] Social History Tobacco Use Types [...] How often do you attend chur or congregation services? 1 to 4 times per year [...] Recorded Patient Health Questionnaire-2 Score 0 04/04/2024 [facility] of Occupat ional Health - Occupational Stress [...] place to sleep or slept in a halfway (including now)? No 10/14/2023 Comments Unknown Sex [...] Office Visit [facility] [address] [facility] 110 [place] [address] Ignacia Simeon PA [address] [facility] 110 [place] [address] documented as of this encounter Visit Diagnoses Not on filedocumented in this encounter Additional Health Concerns Assessment Noted Time A fall risk assessment has been complete d for the patient 10/14/2023 9:55 AM EDT documented as of this encounter Care Teams Civil Preparedness Coordinator Relationship Specialty Start Date End Date Venecia Vyas MD [address] [facility] 110 [place] [address] PCP - ACO Reach 12/18/22 Venecia Vyas MD [address] [facility] 110 [place] [address] PCP - General Family Medicine 12/02/22ThursdayYandy LPN [address] [facility] 110 [place] [address] Licensed Practical Nurse Family Medicine 10/12/23 Estefani Osman, RN [address] [place], [place] [address] Licensed Practical Nurse Family Medicine 09/02/2410/14 Celeste Chung LPN [address] [facility] [address] [place] [address] 10/14/24 documented as of this encounter
--- OUTSIDE RECORDS SUMMARY | 2025-02-02 14:55 | XMS_ITS | Encounter Summary ---
Author Organization [facility] Address [address] [facility] [place] [address] Care Team Providers Care Artificial Limb Maker Name Role Phone Venecia Vyas MD Unavailable Venecia Vyas MD Primary Care Provider [phone], Yandy LACE WINDER Unavailable [phone] Estefani Osman RN Unavailable [phone] Chung, Celeste LACE WINDER Unavailable Encounter Details Date Type Department Care Team (Late st Contact Info) Description 05/31/2024 Abstract [facility] 112 [facility] 110 [place] [address] Venecia Vyas MD 112 [facility] 110 [place] [address] Social History Tobacco Use Types [...] How often do you attend chur or tenriism services? 1 to 4 times per year 10/14/2023 Do you belong to any clubs o r organizations such as bahai groups, unions, fraternal or athletic groups, or [...] Recorded Patient Health Questionnaire-2 Score 0 04/04/2024 [facility] [place] of Occupat ional Health - Occupational Stress [...] place to sleep or slept in a alf (including now)? No 10/14/2023 Comments Unknown Sex [...] Office Visit [facility] [address] [facility] 110 [place] [address] Ignacia Simeon PA [address] [facility] 110 [place] [address] documented as of this encounter Visit Diagnoses Not on filedocumented in this encounter Additional Health Concerns Assessment Noted Time A fall risk assessment has been complete d for the patient 10/14/2023 9:55 AM EDT documented as of this encounter Care Teams Artificial Limb Maker Relationship Specialty Start Date End Date Venecia Vyas MD [address] [facility] 110 [place] [address] PCP - ACO Reach 12/18/22 Venecia Vyas MD [address] [facility] 110 [place] [address] PCP - General Family Medicine 12/02/22ThursdayYandy LPN [address] [facility] 110 [place] [address] Licensed Practical Nurse Family Medicine 10/12/23 Estefani Osman, RN [address] [place], [place] [address] Licensed Practical Nurse Family Medicine 09/02/2410/14 Celeste Chung LPN [address] [facility] 110 [place] [address] 10/14/24 documented as of this encounter
--- OUTSIDE RECORDS SUMMARY | 2025-02-02 14:55 | XMS_ITS | Encounter Summary ---
Author Organization [facility] Address [address] [facility] [place] [address] Care Team Providers Care Shop Estimator Name Role Phone Venecia Vyas MD Unavailable Venecia Vyas MD Primary Care Provider [phone], Yandy COTTON STRIPPER Unavailable [phone] Estefani Osman RN Unavailable [phone] Chung, Celeste COTTON STRIPPER Unavailable Encounter Details Date Type Department Care Team (Late st Contact Info) Description 02/01/2024 Abstract [facility] 112 [facility] 110 [place] [address] Venecia Vyas MD 112 [facility] 110 [place] [address] Social History Tobacco Use Types [...] How often do you attend chur or buddhist services? 1 to 4 times per year 10/14/2023 Do you belong to any clubs o r organizations such as restoration groups, unions, fraternal or athletic groups, or [...] Recorded Patient Health Questionnaire-2 Score 0 03/24/2023 [facility] of Occupat ional Health - [...] WAY [facility] 110 [place] [address] Ignacia Simeon PA [address] [facility] 110 [place] [address] documented as of this encounter Visit Diagnoses Not on filedocumented in this encounter Additional Health Concerns Assessment Noted Time A fall risk assessment has been complete d for the patient 10/14/2023 9:55 AM EDT documented as of this encounter Care Teams Shop Estimator Relationship Specialty Start Date End Date Venecia Vyas MD [address] [facility] 110 [place] [address] PCP - ACO Reach 12/18/22 Venecia Vyas MD [address] [facility] [address] [place] [address] PCP - General Family Medicine 12/02/22ThursdayYandy LPN [address] [place] [address] Licensed Practical Nurse Family Medicine 10/12/23 Estefani Osman, RN [address] [place] [address] Licensed Practical Nurse Family Medicine 09/02/2410/14 Celeste Chung LPN [address] [facility] 110 [place] [address] 10/14/24 documented as of this encounter
--- OUTSIDE RECORDS SUMMARY | 2025-02-02 14:55 | XMS_ITS | Encounter Summary ---
Author Organization [facility] Address [address] [place] [address] Care Team Providers Care Design Center Consultant Name Role Phone Venecia King MD Unavailable Venecia King MD Primary Care Provider [phone], Yandy OPTICAL ELEMENT COATER Unavailable [phone] Estefani Osman RN Unavailable [phone] ChungCeleste OPTICAL ELEMENT COATER Unavailable Encounter Details Date Type Department Care Team (Late st Contact Info) Description 04/05/2024 Clinisync Result Encounter [facility] External Department Unsolicited Ignacia Simeon, PA 112 [facility] 110 [place] [address] Social History Tobacco Use Types Packs/Day Years [...] How often do you attend chur or rastafari services? 1 to 4 times per year 10/14/2023 Do you belong to any clubs o r organizations such as amish groups, unions, fraternal or athletic groups, or [...] Recorded Patient Health Questionnaire-2 Score 0 04/04/2024 [facility] [place] of Occupat ional Health - Occupational Stress [...] place to sleep or slept in a half-way (including now)? No 10/14/2023 Comments Unknown Sex [...] AM EDT Office Visit [facility] [address] [facility] 110 [place] [address] Ignacia Simeon PA [address] [facility] 110 [place] [address] documented as of this encounter Procedures Procedure Name Priority Date/Time Associated Diagnosis Comments MM TOMOSYNTHESIS SCREENING BI 04/05/2024 5:14 PM EDT documented in this encounter Results * MM TOMOSYNTHESIS SCREENING BI (04/05/2024 5:14 PM EDT) Anatomical Region Laterality Modality Other 04/05/2024 5:14 PM EDT Narrative 04/05/2024 5:15 PM EDT [facility] [place] [id number] Mammography Report Signed Patient: LESLIE MATHIS MR#: [id number] : 1950 Acct:[id number] Age/Sex: 73 / F ADM Date: 04/05/24 Loc: MAMMO Attending Dr: IGNACIA SIMEON Ordering Physician: IGNACIA SIMEON Results: Date of Service: 04/05/24 Follow Up: Procedure(s): MM tomosynthesis screening BI Accession Number(s): [id number] cc: VENECIA KING ; IGNACIA SIMEON Patient Name: LESLIE MATHIS MR#: [id number] : 1950 Exam Date: 04/05/2024 Ordering Doctor: [...] breast cancer at age 81. LOCATION: The [facility] BREAST COMPOSITION: There are scattered areas of [...] M.D. Signed By: 04/05/241714 DD/ 13 TD/TT: Clothespin Machine Operator: Procedure Note Radiology, Radiologist, MD - 04/05/2024 [place] [address] Mammography Report Signed Patient: LESLIE MATHIS RMR#: [id number] : 1950cct:[id number] Age/Sex: 73 / FADM Date: 04/05/24 Loc: MAMMO Attending Dr: IGNACIA SIMEON Ordering Physician: IGNACIA SIMEON MResults: Date of Service: 04/05/24Follow Up: Procedure(s): MM tomosynthesis screening BI Accession Number(s): [id number] cc: VENECIA KING ; IGNACIA SIMEON Patient Name: LESLIE MATHIS MR#: [id number] : 1950 Exam Date: 04/05/2024 Ordering Doctor: DR IGNACIA SIMEON PA RADIOLOGY REPORT PROCEDURE: MM TOMOSYNTHESIS SCREENING BI COMPARISON: MM TOMOSYNTHESIS SCREENING BI, 04/01/2023. MG MAMM [id number] JACQUELINE CAD, 01/08/2022. MG MAMM SCREEN 3D JACQUELINE CAD, 10/09/2020. MG MAMM BILSCRN W CAD DIG, 10/19/2013. INDICATIONS: Screening Calculator Name NCI Breast Cancer Risk Assessment Tool 5 Year Breast Cancer Risk 3.80% Lifetime Breast Cancer Risk 9.70% Personal Breast Cancer No Personal Ovarian Cancer No Treatments None Family Cancers Mother with breast cancer at age 80. LOCATION: The [facility] BREAST COMPOSITION: There are scattered areas of [...] Hoffmann M.D. Signed By:04/05/241714 DD/ 13 TD/TT: Clothespin Machine Operator: Ignacia MARQUEZ [facility] Final Result documented in this encounter Visit Diagnoses Not on filedocumented in this encounter Additional Health Concerns Assessment Noted Time A fall risk assessment has been complete d for the patient 10/14/2023 9:55 AM EDT documented as of this encounter Care Teams Design Center Consultant Relationship Specialty Start Date End Date Venecia King MD [address] [facility] [address] [place] [address] PCP - ACO Reach 12/18/22 Venecia King MD [address] [facility] [address] [place] [address] PCP - General Family Medicine 12/02/22ThursdayYandy LPN [address] [place] [address] Licensed Practical Nurse Family Medicine 10/12/23 Estefani Osman, ALIA [address] [place] [address] Licensed Practical Nurse Family Medicine 09/02/2410/14 Celeste Chung LPN [address] [facility] [address] [place] [address] 10/14/24 documented as of this encounter
--- NOTE | 2025-02-02 15:15 | PM.CN ---
Consult Note: HPI Data of Consult Patient: known to practice within the last 3 years Consult date: 02/02/25 Requesting Physician: Perla Oreilly NP Primary Care Provider: CASSANDRA KING Consult Narrative Reason for consult: f/u Narrative: Leslie Mathis a pleasant 74 year old female presents for evaluation and management of chronic bilateral knee. Patient reports a history of fibromyalgia as well. Today rating pain 8/10 in bilateral knees. Patient is on warfarin and is advised not to take NSAIDs, however she continues to use motrin PRN. pts pcp recently represcribed duloxetine 30mg BID, she was previously on 90mg daily but stopped taking. has been utilizing tylenol and lyrica 50mg BID with benefit. since last visit pt has noticed increase bilateral knee pain, however she does not feel any of her injections in her knees have been helpful. shes requesting tylenol #3 prn, which we had trialed in june 2024 but pt did not call for refills. cc:: CC: Perla Oreilly NP Review of Systems ROS Status of ROS 10 or more systems reviewed and unremarkable except as noted in history and below Musculoskeletal Reports: joint pain PFSH PFSH Medical History (Updated 07/26/24 @ 14:31 by Dafne Lang) Osteoarthritis ?M19.90 - Unspecified osteoarthritis, unspecified site (ICD-10) Anemia ?D64.9 - Anemia, unspecified (ICD-10) Active asthma ?J45.909 - Unspecified asthma, uncomplicated (ICD-10) Heart valve disease ?I38 - Endocarditis, valve unspecified (ICD-10) Hypertension ?I10 - Essential (primary) hypertension (ICD-10) Irregular heart beat ?I49.9 - Cardiac arrhythmia, unspecified (ICD-10) Surgical History (Updated 07/26/24 @ 14:31 by Dafne Lang) S/P gastric bypass ?Z98.84 - Bariatric surgery status (ICD-10) S/P cholecystectomy ?Z90.49 - Acquired absence of other specified parts of digestive tract (ICD-10) H/O: hysterectomy ?Z90.710 - Acquired absence of both cervix and uterus (ICD-10) Family History (Updated 07/26/24 @ 14:30 by Dafne Lang) Other Fibromyalgia Social History Smoking status: Never smoker Meds Home Medications and Allergies Home Medications ?Medication ?Instructions ?Recorded ?Confirmed ?Type ascorbic acid (vitamin C) 500 mg 500 mg PO DAILY 01/01/23 08/02/24 History tablet calcium 100 mg capsule mg PO 01/01/23 History carvedilol 12.5 mg tablet 12.5 mg PO BID 01/01/23 08/02/24 History diltiazem HCl 240 mg capsule,24 240 mg PO DAILY 01/01/23 08/02/24 History hr,extended release ferrous sulfate 325 mg (65 mg 325 mg PO DAILY 01/01/23 08/02/24 History iron) tablet (iron) furosemide 20 mg tablet (Lasix) 20 mg PO BID 01/01/23 08/02/24 History ibuprofen 800 mg tablet 800 mg PO QDAY 01/01/23 08/02/24 History metaxalone 800 mg tablet 800 mg PO TID 01/01/23 08/02/24 History metformin 500 mg tablet 500 mg PO DAILY 01/01/23 08/02/24 History warfarin 5 mg tablet 5 mg PO DAILY 01/01/23 08/02/24 History duloxetine 30 mg capsule,delayed 30 mg PO .AM 07/16/23 08/02/24 History release (Cymbalta) duloxetine 60 mg capsule,delayed 60 mg PO .hs #90 caps 08/06/23 08/02/24 Rx release meclizine 25 mg tablet 25 mg PO TID PRN dizziness #20 tabs 08/15/23 08/02/24 Rx pregabalin 50 mg capsule (Lyrica) 50 mg PO BID #60 caps 04/14/24 08/02/24 Rx acetaminophen 300 mg-codeine 30 mg 1 tab PO DAILY PRN pain #7 tabs 06/29/24 08/02/24 Rx tablet Allergies Allergy/AdvReac Type Severity Reaction Status Date / Time Penicillins Allergy resp Verified 07/12/24 08:28 distress Exam Narrative Exam Narrative: generalized myofascial pain on exam Constitutional Documenting provider has reviewed patient's vital signs: yes Common normals: no apparent distress, oriented x3, healthy appearing, alert and well nourished General appearance: cooperative HENMT Common normals: normocephalic, hearing grossly normal bilaterally and moist oral mucous membranes Head and scalp: normocephalic Eye Common normals: PERRL Pupil: PERRL Neck & C-Spine Common normals: full ROM General: normal visual inspection Chest Common normals: inspection of chest normal Respiratory Common normals: normal respiratory effort, no retractions and no use of accessory muscles Back & Pelvis Thoracic spine/upper back: normal to inspection and thoracic ROM normal Lumbar spine/lower back: normal to inspection, pain with ROM and straight leg raise negative bilaterally Sacroiliac joints: SI joints normal Other: positive bilateral facet loading Extremity Common normals: no calf tenderness and no pedal edema Right lower extremity: knee joint (enlarged, pain with weight bearing, limited ROM) Left lower extremity: knee joint (enlarged, pain with weight bearing, limited ROM) Neuro Common normals: oriented x3 Sensorium/orientation: alert Motor exam: strength 5/5 throughout and no movement abnormalities noted Psych Common normals: mental status grossly normal, thought process normal, cooperative, affect normal, speech normal and activity/motor behavior normal Speech: normal speech Thought process: normal thought process Results Additional Findings Additional findings: If on a controlled substance or opioids, I have checked an [place]AR[place] report on this patient and there are no aberrancies noted in the prescribing history.??If on a controlled substance or opioid a drug screen was completed and reviewed within the last year, and if there has not been a drug screen completed we ordered one today to monitor higher risk, state monitored pain medication use. As part of providing excellent, safe, comprehensive care, the following was completed at our patient's visit: 1. A medication reconciliation and review to ensure accurate knowledge of current/active medications, including asking our patients to inform us about any [id number] medications or herbal remedies/nutritional supplements/alternative remedies. 2. A review to specifically ensure our patients have had annual screening for screening for depression, screening for tobacco use, and screening for unhealthy alcohol use. For concerning screenings had a discussion with the patient, provided patient education, and recommended follow-up with primary care provider when appropriate. If patient noted with a risk of falling, they received education on strength, gait, and balance training to prevent future risk of falling. Portions of this note may have been carried over from the previous visit and updated as appropriate. Please note this office utilizes paper charting in addition to the electronic medical record. A list of current medications, vitals, and PMH is available there as the clinical staff outside of myself do not have access to [facility] charting during the clinic day operations. As part of providing quality comprehensive care the current medications, vitals, and PMH were reviewed in the paper chart. Assessment and Plan Assessment and Plan (1) Knee osteoarthritis: (2) Fibromyalgia: (3) Chronic pain syndrome: (4) Generalized OA: (5) Muscle spasm: Plan trial tylenol #3 bid prn moderate to severe pain, risks vs benefits reviewed start duloxetine 30mg BID as ordered by pcp continue tylenol PRN advised to discuss motrin use with PCP continue HEP as tolerated f/u 1 month
--- OUTSIDE RECORDS SUMMARY | 2025-02-02 17:58 | XMS_ITS | CCD ---
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 Name Role Phone PHYSICIAN, DEFAULT Unavailable Unavailable [...] ., NARENDRANATH Attending Li vailable LAKSHMIPATHY ., SCARLETENDCARMENATH Admitting [...] Consulting Unavailable CHRISTINE, DR TRUJILLO Attending Unavailable HCRISTINE, DR TRUJILLO Admitting Unavailable CHRISTINE, DR TRUJILLO [...] Attending Li vailable CARLINE QUAN Attending Unavailable [place] Venecia GRECO Unavailable Venecia King MD Primary Care Provider Hai CRISIS MENTAL HEALTH THERAPIST, Yandy Unavailable Estefani Osman RN Unavailable [phone] [facility] Unavailable IGNACIA FELIPE Attending Unavailable HEMIGNACIA PERALTA Attending Unavailable IGNACIA FELIPE Attending Unavailable CHRISTINEVENECIA Attending Unavailable Allergies Allergy Classification Reported Allergen(s) Allergy Type Date of Onset Reaction(s) Facility (2 sources) Penicillins Drug allergy (disorder) 6 [facility] Repository (1 source) Penicillin; Translations: [PENICILLIN] Drug Allergy 4 [facility] Repository (12 sources) milnacipran Drug Allergy [address] [facility] Healthcare (12 sources) Penicillin G Drug Allergy [address] [facility] Healthcare (2 sources) Semaglutide Propensity to adverse reactions [address] [facility] Medications Current Medications Medication Drug Class(es) Dates Sig (Normalized) Sig (Original) amiodarone hydrochloride 200 mg oral tablet (6 sources) Antiarrhythmic Start: 08-16-2024 take 1 tablet by mouth once daily amiodarone (Pacerone) 200 MG tablet Take 200 mg by mouth Daily 08/16/2024 Active CALCIUM MAGNESIUM ZINC PO (12 sources) take 1 tablet by mouth once daily CALCIUM MAGNESIUM ZINC PO Take 1 tablet by mouth Daily Active carvedilol 12.5 mg oral tablet (12 sources) alpha-Adrenergic Nathaniel, beta-Adrenergic Nathaniel Start: 06-06-2024 carvedilol (Coreg) 12.5 MG tablet Indications: Essential hypertension TAKE 1 TABLET TWICE DAILY WITH FOOD 200 tablet 3 06/06/2024 Active Start: 08-17-2023 carvedilol (Co reg) 12.5 MG tablet Indications: Essential hypertension (CMS/HCC) TAKE 1 TABLET TWICE DAILY WITH FOOD 180 tablet 3 08/17/2023 Active Chondroitin Sulfates / Glucosamine (12 sources) take 1 tablet by mouth once daily Glucosamine-Chondroitin (OSTEO BI-FLEX REGULAR STRENGTH PO) Take 1 tablet by mouth Daily Active 1 ml denosumab 60 mg/ml prefilled syringe (5 sources) RANK Ligand Inhibitor Start: 2024 End: 2024 inject 1 mL by subcutaneous injection once denosumab (Prolia) 60 MG/ML solution prefilled syringe Indications: Age-related osteoporosis without current pathological fracture Inject 1 mL (60 mg) under the skin 1 (one) time for 1 dose 09/09/2024 01/26/2025 Discontinued (Cost of medication) 24 hr dilTIAZem hydrochloride 240 mg extended release oral capsule (12 sources) Calcium Channel Nathaniel Start: 2024 dilTIAZem CD (Cardizem CD) 240 MG 24 hr capsule Indications: Essential hypertension TAKE 1 CAPSULE EVERY DAY 90 capsule 01/25/2025 Active Start: 04-06-2024 dilTIAZem CD ( Cardizem CD) 240 MG 24 hr capsule Indications: Essential hypertension (CMS/HCC) TAKE 1 CAPSULE EVERY DAY 100 capsule 3 04/06/2024 Active Start: 02-23-2023 dilTIAZem CD ( Cardizem CD) 240 MG 24 hr capsule Indications: Essential hypertension (CMS/HCC) TAKE 1 CAPSULE EVERY DAY 100 capsule 3 02/23/2023 Active DULoxetine 30 mg delayed release oral capsule (2 sources) Serotonin and Norepinephrine Reuptake Inhibitor Start: 01-26-2025 take 1 capsule by mouth in the morning DULoxetine (Cymbalta) [address] capsule Indications: Fibromyalgia Take 1 capsule (30 mg) by mouth in the morning and 1 capsule (30 mg) before bedtime. Do not crush or chew. 60 capsule 2 01/26/2025 Active Start: 01-26-2025 take 1 capsule by mo uth in the morning DULoxetine (Cymbalta) [address] capsule Indications: Fibromyalgia Take 1 capsule (30 mg) by mouth in the morning and 1 capsule (30 mg) before bedtime. Do not crush or chew. 60 capsule 2 01/26/2025 Active furosemide 20 mg oral tablet (12 sources) Loop Diuretic Start: 05-09-2024 furosemide (La six) 20 MG tablet Indications: Edema, unspecified type TAKE 1 TABLET TWICE DAILY 180 tablet 3 05/09/2024 Active Start: 07-21-2023 furosemide (La six) 20 MG tablet Indications: Edema, unspecified type TAKE 1 TABLET TWICE DAILY 180 tablet 3 07/21/2023 Active ibuprofen 800 mg oral tablet (12 sources) Nonsteroidal Anti-inflammatory Drug Start: 01-16-2025 take 1 tablet by mouth every eight hours for pain ibuprofen 800 MG tablet Indications: Fibromyalgia , Lumbar strain, initial encounter Take 1 tablet (800 mg) by mouth every 8 (eight) hours if needed for moderate pain 90 tablet 01/16/2025 Active take 1 tablet by chacho th every eight hours as needed for pain ibuprofen 800 MG tablet Take 800 mg by mouth every 8 (eight) hours if needed for moderate pain Active MAGNESIUM GLYCINATE ADVANCED PO (12 sources) take 1 tablet by mouth once daily MAGNESIUM GLYCINATE ADVANCED PO Take 1 tablet by mouth Daily Active meclizine hydrochloride 25 mg oral tablet (12 sources) Antiemetic take 1 tablet by mouth three times daily as needed for dizziness meclizine (Antivert) 25 MG tablet Take 25 mg by mouth 3 (three) times a day as needed for dizziness Active metaxalone 800 mg oral tablet (12 sources) Start: 06-20-2024 take 1 tablet by mouth at bedtime [...] 2 diabetes mellitus without complication, unspecified whether senior care insulin use (CMS/HCC) TAKE 1 TABLET EVERY [...] Active PARoxetine hydrochloride 20 mg oral tablet (12 sources) Serotonin Reuptake Inhibitor Start: 11-10-2023 End: 11-09-2024 PARoxetine (Paxil) 20 MG tablet Indications: Depressive disorder TAKE 1 TABLET EVERY MORNING 90 tablet 3 08/31/2024 Active microencapsulated potassium chloride 10 meq extended release oral tablet (12 sources) Start: 01-09-2025 potassium chlo ride CR (Klor-Con M10) 10 MEQ ER tablet Indications: Localized swelling of both lower legs TAKE 1 TABLET EVERY DAY (DO NOT CRUSH OR CHEW) 90 tablet 3 01/09/2025 Active Start: 03-07-2024 take 1 tablet by chacho th once daily potassium chloride CR (Klor-Con M10) 10 MEQ ER tablet Indications: Localized swelling of both lower legs Take 1 tablet (10 mEq) by mouth Daily Do not crush or chew. 90 tablet 3 03/07/2024 Active pregabalin 50 mg oral capsule (6 sources) Start: 08-12-2024 take 1 capsule by [...] Take with meals 06/07/2024 09/09/2024 Discontinued (Other) SEMAGLUTIDE, 1 MG/DOSE, SC (3 sources) Start: 09-09-2024 End: 01-26-2025 inject 0.25 mg by subcutaneous injection every week SEMAGLUTIDE, 1 MG/DOSE, SC Inject 0.25 mg under the skin 1 (one) time per week 09/09/2024 01/26/2025 Discontinued (Side effects) Start: 09-09-2024 inject 0.25 mg by dubois bcutaneous injection every week SEMAGLUTIDE, 1 MG/DOSE, SC Inject 0.25 mg under the skin 1 (one) time per week 09/09/2024 Active Semaglutide-Weight Management 0.25 MG/0.5ML solution auto-injector (4 sources) Start: 09-09-2024 End: 01-26-2025 inject 0.25 mg by subcutaneous injection every week Semaglutide-Weight Management 0.25 MG/0.5ML solution auto-injector Indications: Morbid (severe) obesity due to excess calories (CMS-HCC) , Body mass index (BMI) 40.0-44.9, adult (CMS-HCC) , Paroxysmal atrial fibrillation (HCC) Inject 0.25 mg under the skin 1 (one) time per week 09/09/2024 01/26/2025 Discontinued Start: 09-09-2024 inject 0.25 mg by dubois bcutaneous injection every week Semaglutide-Weight Management 0.25 MG/0.5ML solution auto-injector Indications: Morbid (severe) obesity due to excess calories (CMS/HCC) , Body mass index (BMI) 40.0-44.9, adult (CMS/HCC) , Paroxysmal atrial fibrillation (CMS/HCC) Inject 0.25 mg under the skin 1 (one) time per week 09/09/2024 Active warfarin sodium 5 mg oral tablet (12 sources) Vitamin K Antagonist Start: 07-21-2024 warfarin (Coumadin) 5 MG tablet Indications: Longstanding persistent atrial fibrillation (HCC) TAKE 1 TABLET [...] Problem Date Documented Date Episodic/Chronic Adjustment disorders (12 sources) Adjustment disorder in remission; Translations: [Adjustment disorder, unspecified] Onset: 02-23-2023 02-23-2023 Chronic Asthma (13 sources) Unspecified asthma, uncomplicated; Translations: [Asthmatic bronchitis] Onset: 12-18-2022 02-23-2023 Chronic Cardiac and circulatory congenital anomalies (13 sources) Atrial septal defect; Translations: [Atrial septal defect] Onset: 04-04-2024 04-04-2024 Chronic Cardiac dysrhythmias (20 sources) Unspecified atrial fibrillation; Translations: [Paroxysmal atrial fibrillation] Onset: 10-27-2022 Chronic Cardiac dysrhythmias (1 source) Cardiac dysrhythmias Onset: 02-08-2018 Coagulation and hemorrhagic disorders (12 sources) Thrombophilia; Translations: [Other thrombophilia] Onset: 03-07-2024 03-07-2024 Chronic Deficiency and other anemia (4 sources) Iron deficiency anemia secondary to blood loss (chronic); Translations: [IRON DEFIC ANEMIA SEC BLD LOSS CHRN] Onset: 05-22-2022 Chronic Deficiency and other anemia (12 sources) Iron deficiency anemia due to blood loss; Translations: [Iron deficiency anemia secondary to blood loss (chronic)] Onset: 02-23-2023 02-23-2023 Chronic Diabetes mellitus without complication (18 sources) Impaired glucose tolerance; Translations: [Impaired glucose tolerance (oral)] Onset: 02-23-2023 02-23-2023 Episodic Disorders of lipid metabolism (20 sources) Hyperlipidemia; Translations: [Hyperlipidemia, unspecified] Onset: 02-23-2023 02-23-2023 Chronic Essential hypertension (20 sources) Essential (primary) hypertension; Translations: [Essential hypertension] Onset: 12-18-2022 02-23-2023 Chronic Heart valve disorders (13 sources) Tricuspid incompetence, non-rheumatic ; Translations: [Nonrheumatic tricuspid (valve) insufficiency] Onset: 04-04-2024 04-04-2024 Chronic Menopausal disorders (18 sources) Other primary ovarian failure; Translations: [Decreased estrogen level] Onset: 01-08-2022 Chronic Mood disorders (12 sources) Depressive disorder; Translations: [Depressive disorder] Onset: 02-23-2023 02-23-2023 Chronic Osteoarthritis (20 sources) Unilateral primary osteoarthritis, right knee; Translations: [Bilateral primary osteoarthritis of knee] Onset: 12-06-2022 Resolved: 03-07-2024 Chronic Osteoporosis (20 sources) Osteoporosis; Translations: [Other osteoporosis without current pathological fracture] Onset: 02-23-2023 Resolved: 09-09-2024 02-23-2023 Chronic Other aftercare (5 sources) Encounter for therapeutic drug level monitoring; Translations: [ENC THERAPEUTC DRUG LEVL MONITORING] Onset: 11-22-2022 Episodic Other aftercare (1 source) 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 card 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 (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) use of anticoagulants; Translations: [SKILLED NURSING CURRNT USE ANTICOAGULANTS] Onset: 12-24-2022 Episodic Other and ill-defined heart disease (13 sources) Bilateral enlargement of atria; Translations: [Cardiomegaly] Onset: 02-23-2023 04-04-2024 Chronic Other and ill-defined heart disease (1 source) Left atrial dilatation; Translations: [Cardiomegaly] Onset: 02-23-2023 02-23-2023 Chronic Other connective tissue disease (1 source) Fibromyalgia; Translations: [FIBROMYALGIA] Onset: 12-18-2022 Episodic Other connective tissue disease (14 sources) Fibromyalgia; Translations: [Fibromyalgia] Onset: 02-23-2023 3 Episodic Other lower respiratory disease (1 source) [...] Chronic Other nutritional; endocrine; and metabolic disorders (14 sources) Body mass index 40+ - severely obese; Translations: [Body mass index (BMI) 40.0-44.9, adult] Onset: 03-07-2024 03-07-2024 Chronic Other nutritional; endocrine; and metabolic disorders (7 sources) Obesity caused by energy imbalance; Translations: [Morbid (severe) obesity due to excess calories] Onset: 02-23-2023 09-09-2024 Chronic Other skin disorders (2 sources) Skin irritation ; Translations: [Other skin changes] 09-09-2024 Episodic Pulmonary heart disease (9 sources) Pulmonary hypertension; Translations: [Pulmonary hypertension, unspecified] Onset: 09-09-2024 04-04-2024 Chronic Residual codes; unclassified (1 source) Sleep apnea, unspecified; Translations: [SLEEP APNEA UNSPECIFIED] Onset: 12-18-2022 Chronic Residual codes; unclassified (12 sources) Obstructive sleep apnea syndrome; Translations: [Obstructive sleep apnea (adult) (pediatric)] Onset: 02-23-2023 02-23-2023 Chronic Unclassified (2 sources) Dyspnea, unspecified / R06.00(ICD-9) Onset: 02-08-2018 Unclassified (1 source) Tachycardia, unspecified / R00.0(ICD-9) Onset: 02-08-2018 Past or Other Problems Problem Classification Problem Date Documented Da te Episodic/Chronic Neoplasms of unspecified nature or uncertain behavior (12 sources) Neoplasm of uncertain behavior of skin of hand; Translations: [Neoplasm of uncertain behavior of skin] Onset: 03-07-2024 03-07-2024 Episodic Other bone disease and musculoskeletal deformities (1 source) Other specified disorders of bone density and structure, left thigh; Translations: [OTH D/O BONE DEN STRUCT LT THIGH] Onset: 01-23-2022 Episodic Other connective tissue disease (12 sources) Muscle pain; Translations: [Myalgia, unspecified site] Onset: 02-23-2023 02-23-2023 Episodic Other ear and sense organ disorders (12 sources) Bilateral tinnitus; Translations: [Tinnitus, bilateral] Onset: 02-23-2023 02-23-2023 Episodic Other lower respiratory disease (12 sources) Dyspnea on exertion; Translations: [Other forms of dyspnea] Onset: 03-07-2024 03-07-2024 Episodic Other screening for suspected conditions (not mental disorders or infectious disease) (13 sources) Encounter for screening mammogram for malignant neoplasm of breast; Translations: [Patient encounter status] Onset: 01-23-2022 03-24-2023 Episodic Other skin disorders (12 sources) Bilateral localized swelling of lower legs; Translations: [Localized swelling, mass and lump, lower limb, bilateral] Onset: 03-07-2024 03-07-2024 Episodic Residual codes; unclassified (1 source) Family history of malignant neoplasm of breast; Translations: [FAMILY HX MALIG NEOPLASM OF BREAST] Onset: 01-23-2022 Episodic Unclassified (12 sources) Onset: 10-14-2023 10-14-2023 Results Test Name Value Interpretation Reference Range Facility Laboratory - Hematology and Cell countson 01-26-2025 HbA1c (Bld) [Mass fraction] 5.8 % [facility] No Panel Informationon 01-26 Interpretation and review of laboratory results Abnormal [facility] XR DEXA AXIAL SKELETONon [address] [address] XRay Report Signed Patient: LESLIE LOPEZ MR#: [id number] : 1950 Acct:[id number] Age/Sex: 73 / F ADM Date: 09/02/24 Loc: RAD Attending Dr: VENECIA KING Ordering Physician: VENECIA KING Date of Service: 09/02/24 Procedure(s): XR DEXA axial skeleton Accession Number(s): [id number] cc: VENECIA KING [address] [address] Patient Name: LESLIE LOPEZ MRN: [id number] date: 1950 Sex: F Assigned Patient Location: [facility] Current Patient Location: Accession/Order Number: [id number] Exam Date: 09/02/2024 11:05 Report Date: 09/05/2024 [...] prevention and treatment of osteoporosis. Osteoporos Int. 2021;33(10):4689-5927 . doi: 10.1007/q36888-993-2 5900-y. Epub 2021Nov 21. Erratum in: Osteoporos Int. 2021Feb 20;: PMID: 45558311; PMCID: [id number]. Electronically authenticated by: RADHA TRINIDAD Date: 09/05/2024 08:35 Dictated By: Radha Trinidad M.D. Signed By: 09/05/2437 DD/ TD/TT: Director Construction Services: [facility] Radiology, Radiologist, - 09/05/2024 [place] [address] XRay Report Signed Patient: LESLIE LOPEZ MR#: [id number] : 1950 Acct:[id number] Age/Sex: 73 / F ADM Date: 09/02/24 Loc: [facility] Attending Dr: VENECIA KING Ordering Physician: VENECIA KING Date of Service: 09/02/24 Procedure(s): XR DEXA axial skeleton Accession Number(s): [id number] cc: VENECIA KING [place] [address] Patient Name: LESLIE LOPEZ MRN: [facility]:[id number] date: 1950 Sex: F Assigned Patient Location: [facility] Current Patient Location: Accession/Order Number: [id number] Exam Date: 09/02/2024 11:05 Report Date: 09/05/2024 [...] prevention and treatment of osteoporosis. Osteoporos Int. 2021;33(10):1014-0704 . doi: 10.1007/s57517-735-1 5900-y. Epub 2021Nov 21. Erratum in: Osteoporos Int. 2021Feb 20;: PMID: 14741656; PMCID: [id number]. Electronically authenticated by: RADHA TRINIDAD Date: 09/05/2024 08:35 Dictated By: Radha Trinidad M.D. Signed By: 09/05/2437 DD/ TD/TT: Director Construction Services: [facility] Radiology Study observation (narrative) [facility] XR DEXA AXIAL SKELETONOrdere d By: Radiologist Radiology on 09-05-2024 [employer] Work Phone: [facility] PROTHROMBIN TIME INR W/O COUMon 08-02-2024 PT Coag (PPP) [Time] 11 s [facility] IN[facility] 1.04 [facility] Comment on above: DESIRED INR: 2.0-3.0 CONDITIONS NOT LISTED BELOW 2.5-3.5 FOR PROSTHETIC HEART VALVE REPLACEMENT 2.5-3.5 RECURRENT [facility]BOSIS [facility] PROTHROMBIN TIME INR W/O COUMon 07-12-2024 Interpretation and review of laboratory results Abnormal [facility] PT Coag (PPP) [Time] 13.[address] [facility] INR 1.29 [facility] Comment on above: DESIRED INR: 2.0-3.0 CONDITIONS NOT LISTED BELOW 2.5-3.5 FOR PROSTHETIC HEART VALVE REPLACEMENT 2.5-3.5 RECURRENT THROMBOSIS [facility] Office Visiton 06-07-2024 Follow-up visit [id number] Leslie Lopez 1950 F Date Provider Department Center 06/07/2024 CARLINE SHRESTHA [facility] Family History Problem Relation Age of Onset No Known Problems Mother No Known Problems Father Family Status - Relation Status Age at Mother Father Level of Service:75948 [place] OFFICE/OUTPATIENT NEW MODERATE MDM 45 MINUTES Normal [facility] PROTIMEon 12-16-2022 INR Coag (PPP) [Relative time] 1.02 {INR} Normal [facility] Comment on above: Performed By: #### P T #### [facility] [address] [address] [address] Justyn Quintanilla INR GUIDELINES SEE BELOW Normal [facility] Comment on above: Result Comment: THAI RED INR: 2.0 - 3.0 CONDITIONS NOT LISTED BELOW 2.5 - 3.5 FOR PROSTHETIC HEART VALVE REPLACEMENT 2.5 - 3.5 RECURRENT THROMBOSIS Performed By: #### P T #### [facility] [address] [place] [address] Dr. Justyn Quintanilla PT Coag (PPP) [Time] 10.8 s Normal 9.0-11.6 [facility] Comment on above: Performed By: #### P T #### [facility] [address] [place] [address] Dr. Justyn Quintanilla CBC AUTO DIFFon 05-22-2022 BASO # 0.0 103/ul Normal 0.0-0.1 [facility] Comment on above: Performed By: #### C BC #### [facility] [address] [place] [address] Dr. Justyn Quintanilla Basophils/100 WBC (Bld) 0.5 % Normal 0.2-2.0 [facility] Comment on above: Performed By: #### C BC #### [facility] [address] [place] [address] Dr. Justyn Quintanilla EO # 0.1 103/ul Normal 0.0-0.7 [facility] Comment on above: Performed By: #### C BC #### [facility] [address] [place] [address] Dr. Justyn Quintanilla Eosinophils/100 WBC (Bld) 2.9 % Normal 0.9-7.0 [facility] Comment on above: Performed By: #### C BC #### [facility] [address] [place] [address] Dr. Justyn Quintanilla Erythrocyte distribution width (RBC) [Ratio] 20.7 % Critically high 11.0-15.0 [facility] Comment on above: Performed By: #### C BC #### [facility] [address] [place] [address] Dr. Justyn Quintanilla Hematocrit (Bld) [Volume fraction] 29.7 % Critically low 36.0-48.0 [facility] Comment on above: Performed By: #### C BC #### [facility] [address] [place] [address] Dr. Justyn Quintanilla Hemoglobin (Bld) [Mass/Vol] 9.0 g/dL Critically low 12.0-16.0 [facility] Comment on above: Performed By: #### C BC #### [facility] [address] [place] [address] Dr. Justyn Quintanilla IG # 0.01 10e3/ul Normal 0.00-0.03 [facility] Comment on above: Performed By: #### C BC #### [facility] [address] [place] [address] Dr. Justyn Quintanilla IG % 0.2 % Normal 0.0-0.5 [facility] Comment on above: Performed By: #### C BC #### [facility] [address] [place] [address] Dr. Justyn Quintanilla LYMPH # 1.2 103/ul Normal 1.2-3.8 [facility] Comment on above: Performed By: #### C BC #### [facility] [address] [place] [address] Dr. Justyn Quintanilla Lymphocytes/100 WBC (Bld) 29.0 % Normal 20.5-60.0 [facility] Comment on above: Performed By: #### C BC #### [facility] [address] [place] [address] Dr. Justyn Quintanilla MANUAL DIFF REQ NO Normal [facility] Comment on above: Performed By: #### C BC #### [facility] [address] [place] [address] Dr. Justyn Quintanilla MCH (RBC) [Entitic mass] 28.6 pg Normal 26.7-34.0 [facility] Comment on above: Performed By: #### C BC #### [facility] [address] [place] [address] Dr. Justyn Quintanilla MCHC (RBC) [Mass/Vol] 30.3 g/dL Normal 29.9-35.2 [facility] Comment on above: Performed By: #### C BC #### [facility] [address] [place] [address] Dr. Justyn Quintanilla MCV (RBC) [Entitic vol] 94.3 fL Normal 81.0-99.0 [facility] Comment on above: Performed By: #### C BC #### [facility] [address] [address] [address] Justyn Quintanilla MONO # 0.4 103/ul Normal 0.3-0.8 [facility] Comment on above: Performed By: #### C BC #### [facility] [address] [address] [address] Justyn Quintanilla Monocytes/100 WBC (Bld) 9.8 % Normal 1.7-12.0 [facility] Comment on above: Performed By: #### C BC #### [facility] [address] [place] [address] Dr. Justyn Quintanilla NEUT # 2.3 103/ul Normal 1.4-6.5 [facility] Comment on above: Performed By: #### C BC #### [facility] [address] [place] [address] Dr. Justyn Quintanilla Neutrophils/100 WBC (Bld) 57.6 % Normal 43.0-75.0 [facility] Comment on above: Performed By: #### C BC #### [facility] [address] [place] [address] Dr. Justyn Quintanilla Platelet mean volume (Bld) [Entitic vol] 9.2 fL Critically low 9.5-13.5 [facility] Comment on above: Performed By: #### C BC #### [facility] [address] [place] [address] Dr. Justyn Quintanilla PLT 361 103/ul Normal 150-450 [facility] Comment on above: Performed By: #### C BC #### [facility] [address] [place] [address] Dr. Justyn Quintanilla RBC 3.15 106/ul Critically low 4.20-5.40 [facility] Comment on above: Performed By: #### C BC #### [facility] [address] [place] [address] Dr. Justyn Quintanilla WBC 4.1 103/ul Normal 4.0-11.0 [facility] Comment on above: Performed By: #### C BC #### [facility] [address] [place] [address] Dr. Justyn Quintanilla MG MAMM SCREEN 3D JACQUELINE CADon 01-08-2022 MG MAMM SCREEN 3D JACQUELINE CAD Patient: LESLIE LOPEZ Exam Date: 01/08/2022 : 1950 Gender:F Ordering : DR VENECIA KING M.D. Admission #: [id number] Family : Order #: [id number] CLICK HERE TO VIEW EXAM RADIOLOGY REPORT [...] Trinidad MD on 01/23/2022 at 08:05 Normal [facility] XR DEXA BONE DENSITYon 01-08 XR [...] by: CINTHYA PHAM Date: 2022-01-08 18:00 Normal [facility] Complete Blood Count with Au to Diffon 12-17-2021 Basophils (Bld) [#/Vol] 0.05 10*3/uL Normal 0.00-0.20 [facility] Comment on above: Performed By: #### V ITD, LIPD, smear, CBCAD, CMP #### [facility] [address], [place] [id number] Basophils/100 WBC (Bld) 1.3 % Normal [facility] Comment on above: Performed By: #### V ITD, LIPD, smear, CBCAD, CMP #### [facility] [address], [place] [id number] Eosinophils (Bld) [#/Vol] 0.08 10*3/uL Normal 0.02-0.50 [facility] Comment on above: Performed By: #### V ITD, LIPD, smear, CBCAD, CMP #### [facility] [address], [place] [id number] Eosinophils/100 WBC (Bld) 2.1 % Normal [facility] Comment on above: Performed By: #### V ITD, LIPD, smear, CBCAD, CMP #### [facility] [address], [place] [id number] Erythrocyte distribution width (RBC) [Ratio] 17.8 % High 11.0-15.0 [facility] Comment on above: Performed By: #### V ITD, LIPD, smear, CBCAD, CMP #### [facility] [address], [place] [id number] Hematocrit (Bld) [Volume fraction] 30.4 % Low 35.0-47.0 [facility] Comment on above: Performed By: #### V ITD, LIPD, smear, CBCAD, CMP #### [facility] [address], [place] [id number] Hemoglobin (Bld) [Mass/Vol] 8.7 g/dL Low 11.6-15.5 [facility] Comment on above: Performed By: #### V ITD, LIPD, smear, CBCAD, CMP #### [facility] [address], [place] [id number] Lymphocytes (Bld) [#/Vol] 1.0 10*3/uL Normal 0.9-3.9 [facility] Comment on above: Performed By: #### V ITD, LIPD, smear, CBCAD, CMP #### [facility] [address], [place] [id number] Lymphocytes/100 WBC (Bld) 25.1 % Normal [facility] Comment on above: Performed By: #### V ITD, LIPD, smear, CBCAD, CMP #### [facility] [address], [place] [id number] MCH (RBC) [Entitic mass] 21.1 pg Low 27.0-33.0 [facility] Comment on above: Performed By: #### V ITD, LIPD, smear, CBCAD, CMP #### [facility] [address], [place] [id number] MCHC (RBC) [Mass/Vol] 28.6 g/dL Low 32.0-36.0 [facility] Comment on above: Performed By: #### V ITD, LIPD, smear, CBCAD, CMP #### [facility] [address], [place] [id number] MCV (RBC) [Entitic vol] 74 fL Low 80-100 [facility] Comment on above: Performed By: #### V ITD, LIPD, smear, CBCAD, CMP #### [facility] [address], [place] [id number] Monocytes (Bld) [#/Vol] 0.4 10*3/uL Normal 0.2-0.9 [facility] Comment on above: Performed By: #### V ITD, LIPD, smear, CBCAD, CMP #### [facility] [address], [place] [id number] Monocytes/100 WBC (Bld) 9.9 % Normal [facility] Comment on above: Performed By: #### V ITD, LIPD, smear, CBCAD, CMP #### [facility] [address], [place] [id number] Neutrophils (Bld) [#/Vol] 2.4 10*3/uL Normal 1.5-7.8 [facility] Comment on above: Performed By: #### V ITD, LIPD, smear, CBCAD, CMP #### [facility] [address], [place] [id number] Neutrophils/100 WBC (Bld) 61.3 % Normal [facility] Comment on above: Performed By: #### V ITD, LIPD, smear, CBCAD, CMP #### [facility] [address], [place] [id number] Platelet mean volume (Bld) [Entitic vol] 10.00 fL Normal 7.50-12.50 [facility] Comment on above: Performed By: #### V ITD, LIPD, smear, CBCAD, CMP #### [facility] [address], [place] [id number] Platelets (Bld) [#/Vol] 255 10*3/uL Normal 140-400 [facility] Comment on above: Performed By: #### V ITD, LIPD, smear, CBCAD, CMP #### [facility] [address], [place] [id number] RBC (Bld) [#/Vol] 4.13 10*6/uL Normal 3.90-5.20 [facility] Comment on above: Performed By: #### V ITD, LIPD, smear, CBCAD, CMP #### [facility] [address], [place] [id number] RDW-SD 46.7 fL Normal 37.0-50.0 [facility] Comment on above: Performed By: #### V ITD, LIPD, smear, CBCAD, CMP #### [facility] [address], [place] [id number] REFLEX Smear Review Normal [facility] Comment on above: Performed By: #### V ITD, LIPD, smear, CBCAD, CMP #### [facility] [address], [place] [id number] WBC (Bld) [#/Vol] 3.8 10*3/uL Normal 3.8-11.0 [facility] [facility] [place] [facility] Comment on above: Performed By: #### V ITD, LIPD, smear, CBCAD, CMP #### [facility] [address], [place] [id number] Comprehensive Metabolic Pane faisal 12-17-2021 Albumin [Mass/Vol] 4.1 g/dL Normal 3.6-5.1 [facility] [facility] [place] [facility] Comment on above: Performed By: #### V ITD, LIPD, smear, CBCAD, CMP #### [facility] [address], [place] [id number] Albumin/Globulin [Mass ratio] 2.0 {ratio} Normal 1.0-2.5 [facility] Comment on above: Performed By: #### V ITD, LIPD, smear, CBCAD, CMP #### [facility] [address], [place] [id number] ALP [Catalytic activity/Vol] 85 U/L Normal 35-119 [facility] Comment on above: Performed By: #### V ITD, LIPD, smear, CBCAD, CMP #### [facility] [address], [place] [id number] ALT [Catalytic activity/Vol] 12 U/L Normal 6-33 [facility] Comment on above: Result Comment: 06/26 Female reference range changed. Performed By: #### V ITD, LIPD, smear, CBCAD, CMP #### [facility] [address], [place] [id number] Anion gap [Moles/Vol] 15 mmol/L Normal 12-20 [facility] Comment on above: Result Comment: Effe ctive 08/01/2019 reference range changed. Performed By: #### V ITD, LIPD, smear, CBCAD, CMP #### [facility] [address], [place] [id number] AST [Catalytic activity/Vol] 18 U/L Normal 9-34 [facility] Comment on above: Performed By: #### V ITD, LIPD, smear, CBCAD, CMP #### [facility] [address], [place] [id number] Bilirubin [Mass/Vol] 0.47 mg/dL Normal 0.30-1.20 [facility] Comment on above: Performed By: #### V ITD, LIPD, smear, CBCAD, CMP #### [facility] [address], [place] [id number] BUN/CREA 28 Ratio High 6-22 [facility] Comment on above: Performed By: #### V ITD, LIPD, smear, CBCAD, CMP #### [facility] [address], [place] [id number] Calcium [Mass/Vol] 9.3 mg/dL Normal 8.6-10.2 [facility] Comment on above: Performed By: #### V ITD, LIPD, smear, CBCAD, CMP #### [facility] [address], [place] [id number] Chloride [Moles/Vol] 103 mmol/L Normal 98-107 [facility] Comment on above: Performed By: #### V ITD, LIPD, smear, CBCAD, CMP #### [facility] [address], [place] [id number] CO2 [Moles/Vol] 27 mmol/L Normal 20-31 [facility] Comment on above: Performed By: #### V ITD, LIPD, smear, CBCAD, CMP #### [facility] [address], [place] [id number] Creatinine [Mass/Vol] 0.6 mg/dL Normal 0.6-1.4 [facility] Comment on above: Performed By: #### V ITD, LIPD, smear, CBCAD, CMP #### [facility] [address], [place] [id number] eGFRAA 122 mL/min/1.73m2 Normal >[address] [facility] Comment on above: Performed By: #### V ITD, LIPD, smear, CBCAD, CMP #### [facility] [address], [place] [id number] eGFRNAA 101 mL/min/1.73m2 Normal >60 [facility] Comment on above: Performed By: #### V ITD, LIPD, smear, CBCAD, CMP #### [facility] [address], [place] [id number] Globulin (S) [Mass/Vol] 2.1 g/dL Normal 1.9-3.7 [facility] Comment on above: Performed By: #### V ITD, LIPD, smear, CBCAD, CMP #### [facility] [address], [place] [id number] Glucose [Mass/Vol] 100 mg/dL High 65-99 [facility] Comment on above: Result Comment: For FASTING Glucose --- ADA reference ranges: Normal 65-99 mg/dl Prediabetes 100-125 Diabetes >/= 126 Performed By: #### V ITD, LIPD, smear, CBCAD, CMP #### [facility] [address], [place] [id number] Potassium [Moles/Vol] 4.8 mmol/L Normal 3.5-5.5 [facility] Comment on above: Performed By: #### V ITD, LIPD, smear, CBCAD, CMP #### [facility] [address], [place] [id number] Protein [Mass/Vol] 6.2 g/dL Normal 6.1-8.1 [facility] Comment on above: Performed By: #### V ITD, LIPD, smear, CBCAD, CMP #### [facility] [address], [place] [id number] Sodium [Moles/Vol] 140 mmol/L Normal 135-146 [facility] As[facility] Comment on above: Performed By: #### V ITD, LIPD, smear, CBCAD, CMP #### [facility] [address], [place] [id number] Urea nitrogen [Mass/Vol] 16 mg/dL Normal 7-25 [facility] Comment on above: Performed By: #### V ITD, LIPD, smear, CBCAD, CMP #### [facility] [address], [place] [id number] Hemoglobin A1Con 12-17-2021 EAG 122.63 Normal [facility] Comment on above: Performed By: #### A 1C #### [facility] [address], [place] [id number] HbA1c (Bld) [Mass fraction] 5.9 % Normal 4.0-6.0 [facility] Comment on above: Performed By: #### A 1C #### [facility] [address], [place] [id number] Lipid Panelon 12-17-2021 Cholesterol [Mass/Vol] 178 mg/dL Normal 125-200 [facility] Comment on above: Result Comment: Low risk < 200mg/dL Borderline risk 201-239 mg/dl High risk > or equal to 240 Performed By: #### V ITD, LIPD, smear, CBCAD, CMP #### [facility] [address], [place] [id number] Cholesterol in HDL [Mass/Vol] 54 mg/dL Normal >40 [facility] Comment on above: Result Comment: High Cardiovascular Risk HDL <40 mg/dL Low Cardiovascular Risk HDL > or equal to 60 mg/dl Performed By: #### V ITD, LIPD, smear, CBCAD, CMP #### [facility] [address], [place] [id number] Cholesterol in LDL [Mass/Vol] 111 mg/dL Normal [facility] Comment on above: Result Comment: LDL ATP III CLASSIFICATION LDL less than 100 mg/dl Optimal LDL 100-129 mg/dl Near or above optimal LDL 130-159 Borderline high LDL 160-189 High LDL greater than 189 mg/dl Very High Performed By: #### V ITD, LIPD, smear, CBCAD, CMP #### [facility] [address], [place] [id number] Cholesterol in VLDL [Mass/Vol] 13 mg/dL Normal [facility] Comment on above: Performed By: #### V ITD, LIPD, smear, CBCAD, CMP #### [facility] [address], [place] [id number] Cholesterol.total/Ch olesterol in HDL [Mass ratio] 3 {ratio} Normal [facility] Comment on above: Performed By: #### V ITD, LIPD, smear, CBCAD, CMP #### [facility] [address], [place] [id number] Triglyceride [Mass/Vol] 67 mg/dL Normal 30-150 [facility] Comment on above: Result Comment: TRIG ATPIII CLASSIFICATIONS TRIG less than 150 mg/dl Normal TRIG 150-199 mg/dl Borderline High TRIG 200-500 mg/dl High TRIG greather than 500 mg/dl Very High Performed By: #### V ITD, LIPD, smear, CBCAD, CMP #### [facility] [address], [place] [id number] Smear Reviewon 12-17-2021 PLT EST Adequate Normal [facility] Comment on above: Performed By: #### V ITD, LIPD, smear, CBCAD, CMP #### [facility] [address], [place] [id number] RBC morphology finding Nom (Bld) RBC morphology review confirms RBC indices Normal [facility] Comment on above: Performed By: #### V ITD, LIPD, smear, CBCAD, CMP #### [facility] [address], [place] [id number] Vitamin D 25-OHon 12-17-2021 VIT D 25 OH 48 ng/ml Normal >29 [facility] Comment on above: Result Comment: [place] min D Status Deficiency <20 ng/mL Insufficiency 20-29 ng/mL Optimal 30-100 ng/mL Possible Toxicity >=150 ng/mL Performed By: #### V ITD, LIPD, smear, CBCAD, CMP #### [facility] [address], [place] [id number] Vital Signs Date Time Vital Sign Value Performing Clinician [place] [facility] 01-26-2025 10:01-040 Body height 165.1 cm Ignacia Felipe PA Work Phone: [facility] 01-26-2025 10:01-0400 Body mass index (BMI) [Ratio] 45.2 kg/m2 Ignacia Hemmer PA Work Phone: [facility] 01-26-2025 10:01-040 Body weight 123.2 kg Ignacia Felipe PA Work Phone: [facility] 01-26-2025 10:01-0400 Diastolic blood pressure 96 mm[Hg] Ignacia Felipe PA Work Phone: [facility] 01-26-2025 10:01-0400 Heart rate 88 /min Ignacia Hemmer PA Work Phone: [facility] 01-26-2025 10:01-0400 Respiratory rate 16 /min Ignacia Hemmer PA Work Phone: [facility] 01-26-2025 10:01-0400 SaO2% (BldA) [Mass fraction] 95 % Ignacia Hemmer PA Work Phone: [facility] 01-26-2025 10:01-0400 Systolic blood pressure 124 mm[Hg] Ignacia Hemmer PA Work Phone: [facility] 09-09-2024 11:02-0500 Body height 165.1 cm Ignacia Hemmer PA Work Phone: [facility] 09-09-2024 11:02-0500 Body mass index (BMI) [Ratio] 44.13 kg/m2 Ignacia Hemmer PA Work Phone: [facility] 09-09-2024 11:02-0500 Body weight 120.29 kg Ignacia Hemmer PA Work Phone: [facility] 09-09-2024 11:02-0500 Diastolic blood pressure 92 mm[Hg] Ignacia Hemmer PA Work Phone: [facility] 09-09-2024 11:02-0500 Heart rate 66 /min Ignacia Hemmer PA Work Phone: [facility] 09-09-2024 11:02-0500 Respiratory rate 16 /min Ignacia Hemmer PA Work Phone: [facility] 09-09-2024 11:02-0500 SaO2% (BldA) [Mass fraction] 97 % Ignacia Hemmer PA Work Phone: [facility] 09-09-2024 11:02-0500 Systolic blood pressure 128 mm[Hg] Ignacia Hemmer PA Work Phone: [facility] 04-04-2024 10:07-0400 Body height 165.1 cm Venecia King MD Work Phone: [facility] 04-04-2024 10:07-0400 Body mass index (BMI) [Ratio] 43.6 kg/m2 Venecia King MD Work Phone: [facility] 04-04-2024 10:07-0400 Body weight 118.84 kg Venecia King MD Work Phone: [facility] 04-04-2024 10:07-0400 Diastolic blood pressure 88 mm[Hg] Venecia King MD Work Phone: [facility] 04-04-2024 10:07-0400 Heart rate 90 /min Venecia King MD Work Phone: [facility] 04-04-2024 10:07-0400 SaO2% (BldA) [Mass fraction] 98 % Venecia King MD Work Phone: [facility] 04-04-2024 10:07-0400 Systolic blood pressure 120 mm[Hg] Venecia King MD Work Phone: [facility] Encounters Encounter Date Encounter Type Care Provider Facility Start: 01-26-2025 End: 01-26-2025 Bamboo flowsheet Ignacia MARQUEZ Work Phone: [facility] Start: 01-26-2025 End: 01-26-2025 Bamboo flowsheet Ignacia Felipe PA Work Phone: [facility] Start: 01-26-2025 End: 01-26-2025 Office outpatient visit 25 minutes Ignacia MARQUEZ Work Phone: [facility] Comment on above: Essential hypertensi on (Primary Dx); Glucose intolerance (impaired glucose tolerance); Fibromyalgia; Primary osteoarthritis of both knees Start: 01-26-2025 End: 01-26-2025 ambulatory IGNACIA FELIPE Not Available Start: 09-09-2024 End: 09-09-2024 Bamboo flowsheet Ignacia Felipe PA Work Phone: [facility] Start: 09-09-2024 End: 09-09-2024 Bamboo flowsheet Ignacia Felipe PA Work Phone: [facility] Start: 09-09-2024 [...] tolerance) Start: 09-09-2024 End: 09-09-2024 ambulatory IGNACIA FELIPE Not Available Start: 09-05-2024 End: 09-05-2024 Clinisync [...] Department Unsolicited Start: 06-07-2024 End: 06-07-2024 ambulatory [facility] Start: 04-04-2024 End: 04-04-2024 Blanca King MD Work Phone: [facility] Start: 04-04-2024 End: 04-04-2024 Blanca King MD Work Phone: [facility] Start: 04-04-2024 End: 04-04-2024 Assay of hemosiderin, lyn King MD Work Phone: [facility] Start: 04-04-2024 End: 04-04-2024 Patient encounter procedure Venecia King MD Work Phone: [facility] Comment on above: Routine general medi flor examination at [facility] facility (Primary Dx); Abnormal glucose tolerance test; Benign essential hypertension ([facility]/HCC); Medicare annual wellness visit, subsequent; Paroxysmal atrial fibrillation (CMS/HCC); Elevated LDL cholesterol level ([facility]/HCC); Estrogen deficiency; Essential hypertension ([facility]/HCC); Pulmonary hypertension, unspecified ([facility]/HCC); Atrial septal defect; Nonrheumatic tricuspid valve regurgitation; Biatrial enlargement Start: 04-04-2024 End: 04-04-2024 ambulatory VENECIA KING Not Available Start: 03-07-2024 End: 03-07-2024 ambulatory IGNACIA FELIPE Not Available Start: 03-24-2023 End: 12-25-2023 Assay of hemosiderinlyn MD Work Phone: [facility] Start: 03-24-2023 End: 09-09-2024 Patient encounter procedure Ignacia MARQUEZ Work Phone: [facility] Start: 01-01-2023 ambulatory NARENDRANATH LAKSHMIPATHY . Facility:[facility] Start: 12-16-2022 End: 12-16-2022 ambulatory NARENDRANATH LAKSHMIPATHY . Facility:[facility] Start: 12-02-2022 End: 12-03-2022 ambulatory NARENDRANATH LAKSHMIPATHY . Facility:[facility] Start: 11-24-2022 End: 12-24-[address] VENECIA KING Facility:[facility] Start: 10-27-2022 End: 11-21-[address] VENECIA KING Facility:[facility] Start: 09-24-2022 End: 10-24-[address] VENECAI KING Facility:[facility] Start: 08-27-2022 End: 09-24-2022 ambulatory [...] 11-27-2017 End: 11-28-2017 Ambulatory DEFAULT PHYSICIAN Facility:[facility] Procedures Date Procedure Procedure Detail Performing Clinician Start: 01-26-2025 Hemoglobin glycosyla brooke a1c Ignacia MARQUEZ Work Phone: Start: 09-05-2024 XR DEXA AXIAL SKELETON Venecia King MD Work Phone: Start: 08-02-2024 [facility] PROTHROMBIN T CECY INR W/O COUM Generic External Data Provider Start: 07-12-2024 [facility] PROTHROMBIN T CECY INR W/O COUM Generic External Data Provider Start: 04-05-2024 Mammography Generic Pr ovider Start: 04-21-2023 Mammography Venecia King MD Work Phone: Plan of Treatment Date Care Activity Detail Author Start: 01-26-2026 Screening for malign ant neoplasm of colon Colorectal Cancer Screening [facility] Comment on above: Postponed from 11/06 (Patient Refused) Start: 04-28-2025 Hemoglobin A1c measurement Diabetes: Hemoglobin A1C [facility] Start: 04-05-2025 Screening for malign ant neoplasm of breast Mammogram [facility] Start: 04-04-2025 Medicare Annual Well ness (AWV) Medicare Annual Wellness (AWV) [facility] Start: 03-27-2025 Influenza vaccination Influenza Vacc ine (#1) [facility] Start: 02-28-2025 End: 02-28-2025 Patient encounter procedure 02/28/2025 10:30 AM EDT Office Visit [facility] [address] [place] [address] Ignacia Felipe PA [address] [place] [address] [facility] Start: 01-26-2025 End: 01-26-2025 Patient encounter procedure 01/26/2025 10:00 AM EDT Office Visit [facility] [address] [place] [address] Ignacia Felipe PA [address] [place] [address] Arrived [facility] Comment on above: Arrived Start: 12-31-2024 Screening for malign ant neoplasm of colon [facility] Start: 10-19-2024 Urine screening for protein Diabetes: Urine Protein Screening [facility] Start: 09-09-2024 End: 09-09-2024 Patient encounter procedure 09/09/2024 11:00 AM EST Office Visit [facility] [address] [place] [address] Ignacia Felipe PA [address] [place] [address] Arrived [facility] Comment on above: Arrived Start: 04-21-2024 Screening for malign ant neoplasm of breast Mammogram [facility] Start: 04-04-2024 End: 04-04-2025 CBC W Auto Differential panel - Blood CBC and differential Lab Routine Medicare annual wellness visit, subsequent Paroxysmal atrial fibrillation (CMS/HCC) Elevated LDL cholesterol level (CMS/HCC) Expected: 04/04/2024 (Approximate), Expires: 04/04/2025 [facility] Work Phone: Comment on above: Expected: 04/04/2024 (Approximate), Expires: 04/04/2025 Start: 04-04-2024 End: 04-04-2025 Comprehensive metabolic 2000 panel - Serum or Plasma Comprehensive metabolic panel Lab Routine Medicare annual wellness visit, subsequent Paroxysmal atrial fibrillation (CMS/HCC) Elevated LDL cholesterol level (CMS/HCC) Expected: 04/04/2024 (Approximate), Expires: 04/04/2025 [facility] Comment on above: Expected: 04/04/2024 (Approximate), Expires: 04/04/2025 Start: 04-04-2024 End: 04-04-2025 DXA Skeletal system Views for bone density DEXA bone density Imaging Routine Estrogen deficiency Expected: 04/04/2024, Expires: 04/04/2025 [facility] Comment on above: Expected: 04/04/2024 , Expires: 04/04/2025 Start: 04-04-2024 End: 04-04-2025 Lipid 1996 panel - Serum or Plasma Lipid panel Lab Routine Medicare annual wellness visit, subsequent Elevated LDL cholesterol level (CMS/HCC) Expected: 04/04/2024 (Approximate), Expires: 04/04/2025 [facility] Comment on above: Expected: 04/04/2024 (Approximate), Expires: 04/04/2025 Start: 04-04-2024 End: 04-04-2024 Patient encounter procedure 04/04/2024 10:30 AM EDT Office Visit [facility] [address] [facility] [address] [place] [id number] Venecia King MD [address] [facility] [address] [place] [address] Arrived [facility] Comment on above: Arrived Start: 03-27-2024 Influenza vaccination Influenza Vacc ine (#1) [facility] Start: 03-24-2024 Medicare Annual Well ness (AWV) Medicare Annual Wellness (AWV) [facility] Start: 01-20-2024 Hemoglobin A1c measurement Diabetes: Hemoglobin A1C [facility] Start: [birth year]-06-1961 Glaucoma screening Diabetes: R etinopathy Screening [facility] Start: 1950 Screening for malign ant neoplasm of colon [facility] Immunizations Immunization Date Immunization Notes Care Provider Fa sam 07-21-2024 influenza, high dose seasonal, preservative-free Ignacia MARQUEZ Work Phone: [facility] Work Phone: 07-21-2024 influenza virus vacc ine, unspecified formulation Ignacia MARQUEZ Work Phone: [facility] 05-18-2023 Influenza, Seasonal, Quadrivalent, Adjuvanted Venecia King MD Work Phone: [facility] 05-18-2023 influenza virus vacc ine, unspecified formulation Venecia King MD Work Phone: [facility] 06-11-2022 Influenza, Seasonal, Quadrivalent, Adjuvanted Venecia King MD Work Phone: [facility] 05-05-2021 influenza, high dose seasonal, preservative-free Venecia King MD Work Phone: [facility] 05-05-2021 Influenza, High-dose Seasonal, Quadrivalent, Preservative Free Venecia King MD Work Phone: [facility] 05-27-2020 Influenza, Seasonal, Quadrivalent, Adjuvanted Venecia King MD Work Phone: [facility] 05-10-2019 influenza, high dose seasonal, preservative-free Venecia King MD Work Phone: [facility] 05-10-2019 pneumococcal polysaccharide vaccine, 23 valent Venecia King MD Work Phone: [facility] 04-14-2019 pneumococcal polysaccharide vaccine, 23 valent Venecia King MD Work Phone: [facility] 04-14-2019 tetanus toxoid, redu bridgett diphtheria toxoid, and acellular pertussis vaccine, adsorbed Venecia King MD Work Phone: [facility] 03-22-2018 influenza, high dose seasonal, preservative-free Venecia King MD Work Phone: [facility] 03-22-2018 pneumococcal conjuga te vaccine, 13 valent Venecia King MD Work Phone: [facility] 06-03-2017 influenza, high dose seasonal, preservative-free Venecia King MD Work Phone: [facility] 07-08-2016 tetanus toxoid, redu bridgett diphtheria toxoid, and acellular pertussis vaccine, adsorbed Venecia King MD Work Phone: [facility] 05-29-2016 seasonal influenza, intradermal, preservative free Venecia King MD Work Phone: [facility] 05-08-2015 influenza, seasonal, injectable, preservative free Venecia King MD Work Phone: [facility] 10-05-2009 tetanus and diphther ia toxoids, adsorbed, preservative free, for adult use (2 Lf of tetanus toxoid and 2 Lf of diphtheria toxoid) Venecia King MD Work Phone: [facility] Payers Date Payer Category Payer [facility] er [id number] 2016 Medicare [id number] 2016 Unknown 1959 Medicare [id number] 1959 Unknown [id number] 1950 Unknown [id number] 1951 Unknown [id number] 1951 Unknown [id number] 1951 Unknown [id number] [id number] 1951 Unknown [id number] [id number] 1951 Unknown [id number] [id number] 1951 Unknown [id number] 2.16.840.1.392715.3.579. 2.593 1950 Unknown [id number] 2.16.840.1.047080.3.579. 2.593 1950 Unknown [id number] 2.16.840.1.910958.3.579. 2.593 1950 Unknown [id number] 2.16.840.1.164111.3.579. 2.593 1950 Unknown [id number] 2.16.840.1.402524.3.579. 2.593 1950 Unknown [id number] 2.16.840.1.607312.3.579. 2.593 1950 Unknown [id number] 2.16.840.1.281895.3.579. 2.593 1950 Unknown [id number] 2.16.840.1.134890.3.579. 2.593 1950 Unknown [id number] 2.16.840.1.268403.3.579. 2.593 1950 Unknown [id number] 2.16.840.1.586485.3.579. 2.593 1950 Unknown [id number] 2.16.840.1.447646.3.579. 2.593 1950 Unknown [id number] 2.16.840.1.026324.3.579. 2.1259 1950 Unknown [id number] 2.16.840.1.645363.3.579. 2.1259 1950 Unknown [id number] 2.16.840.1.424902.3.579. 2.1259 1950 Unknown [id number] 2.16.840.1.666274.3.579. 2.1259 Medicare [id number] Social History Date Type Detail Facility Start: 03-24-2023 Tobacco smoking stat [facility] Never smoked tobacco [facility] Start: 03-24-2023 Tobacco use and exposure Smokeless tobacco non-user [facility] Start: 04-04-2024 End: 01-26-2025 Alcoholic beverage intake Lifetime non-drinker (finding) [facility] [...] Not at all [facility] (I/We) worried zaida er (my/our) food would run out before (I/we) got money to buy more. Never true [facility] Start: 05-07-2023 Alcohol Comment caffeine: rafal olate, coffee,soda,tea [facility] Start: 1950 Sex assigned at Not on file [facility] Functional Status Date Assessment Result Facility 01-26-2025 Patient Health [facility] ionnaire 2 item (PHQ-2) [Reported] [facility] History of Present illness Narrative 01-26-2025 JIMMY Huynh - 01/26/2025 10:00 AM EDT Note Date & Type Note Facility 01-26-2025 History of Presen t illness Narrative Images from the original note were not included. HPI Fibromyalgia Additional comments: Pt wants to discuss pain today. Last edited by JIMMY Huynh on 01/26/2025 10:10 AM. Subjective Patient ID: Leslie Lopez is a 74 y.o. female who presents for impaired fasting glucose. Leslie is present today for follow up impaired fasting glucose. Denies foot ulcers, hypoglycemia. Admits tingling/numbness in feet but had an ablation and feels it is d/t that. Does not check BS's at home. Dr. Junito Thornton, Pain Management, has done ablations of nerves in her knees that do help for a while. Has pain in both knees, hip, [...] thump, or it can be just one joint. States, it is getting me down. Feels likes [...] syringe Inject 1 mL (60 mg) under the skin 1 (one) time for 1 dose [DISCONTINUED] dilTIAZem CD (Cardizem CD) 240 MG 24 hr capsule TAKE 1 CAPSULE EVERY DAY 100 capsule 3 [DISCONTINUED] SEMAGLUTIDE, 1 MG/DOSE, SC Inject 0.25 mg under the skin 1 (one) time per week (Patient not taking: Reported on 01/26/2025) [DISCONTINUED] Semaglutide-Weight Management 0.25 MG/0.5ML solution auto-injector Inject 0.25 mg under the skin 1 [...] lb 9.6 oz SpO2 95% BMI 45.20 kg/m Smoking Status Never BSA 2.38 m Review of Systems Constitutional: Negative for chills, [...] pain management, may be beneficial to increase the dosage. She agrees to do so. Will have [...] Medication Follow Up. documented in this encounter [facility] History of Present illness Narrative 09-09-2024 [...] Sibling Past Medical History: Diagnosis Date A-fib (CMS/HCC) 2017 Anemia Fibromyalgia History of being hospitalized [...] visit: Age-related osteoporosis without current pathological fracture ([facility]) - denosumab (Prolia) 60 MG/ML solution prefilled [...] (CMS/HCC) The patient is seeing a medical doctor md for this condition, treatment is deferred to [...] of the abdomen, avoiding a 1 inch [place] around the belly button. Patient denies any [...] week The patient is seeing a medical doctor md for this condition, treatment is deferred to that specialist. Correspondence from that specialist and any available testing were reviewed during today's visit. Glucose intolerance Will have patient stop the Metformin at this time. She is starting the Semaglutide and has not perceived benefit from the Metformin. Follow up in about 3 months (around 12/07/2024) for Medication Follow Up. documented in this encounter [facility] Progress note 06-07-2024 Note Date & Type Note Facility 06-07-2024 Note [facility] Consult Note [place] [facility] Reason for visit: Afib HPI: Leslie Lopez is a 73 y.o. year old with past medical history of hypertension, Obesity s/p gastric bypass atrial fibrillation has not been seen by injury/safety hazard assessment in the past. She presented to her PCP who thereafter referred to us for establishing care. Her initial diagnosis of A-fib occurred when she was in [place] and was seen in the hospital with food poisoning and was noted to have an EKG that revealed A-fib. Subsequently she was seen by injury/safety hazard assessment who placed her on Coumadin but cardioversion [...] s (more content not included)... [facility] Consultation note 12-02-2022 Note Date & Type [...] our patients to inform us about any [id number] medications or herbal remedies/nutritional supplements/alternative remedies. 2. [...] primary care provider. [facility] Evaluation note Note Date & Type [...] regurgitation Biatrial enlargement documented in this encounter [facility] Evaluation note Note Date & Type [...] glucose tolerance test documented in this encounter [facility] Evaluation note Note Date & Type Note Facility Evaluation note Diagnosis Glucose intolerance (impaired glucose tolerance)- Primary Impaired glucose tolerance test Routine general medical examination at health care facility Routine general medical examination at a health care facility Hyperlipidemia, unspecified hyperlipidemia type Essential hypertension Unspecified essential hypertension Longstanding persistent atrial fibrillation (HCC) Breast screening Breast screening, unspecified Morbid obesity (CMS-HCC) Morbid obesity Paroxysmal atrial fibrillation (HCC)- Primary Atrial fibrillation Glucose intolerance (impaired glucose tolerance) Impaired glucose tolerance test Essential hypertension Unspecified essential hypertension Morbid obesity (CMS-HCC) Morbid obesity Chronic low back pain without sciatica, unspecified back pain laterality Primary osteoarthritis of both knees Routine general medical examination at health care facility- Primary Routine general medical examination at a health care facility Abnormal glucose tolerance test Impaired glucose tolerance test Benign essential hypertension Essential hypertension, benign Medicare annual wellness visit, subsequent Paroxysmal atrial fibrillation (HCC) Atrial fibrillation Elevated LDL cholesterol level Estrogen deficiency Other ovarian failure Essential hypertension Unspecified essential hypertension Pulmonary hypertension, unspecified (HCC) Atrial septal defect (HHS-HCC) Ostium secundum type atrial septal defect Nonrheumatic tricuspid valve regurgitation Biatrial enlargement Essential hypertension- Primary Unspecified essential hypertension Glucose intolerance (impaired glucose tolerance) Impaired glucose tolerance test Fibromyalgia Unspecified myalgia and myositis Primary osteoarthritis of both knees documented in this encounter [facility] History [...] Medicine) Venecia King MD as PCP - [facility] Yandy Thursday, CRISIS MENTAL HEALTH THERAPIST as Licensed Practical Nurse (Family Medicine) Medicare [...] panel Lipid panel Atrial septal defect See Administrative Medical Director in end march Nonrheumatic tricuspid valve regurgitation Other Visit [...] fibrillation Associated Problem(s): Atrial septal defect See Administrative Medical Director in end march Associated Problem(s): Medicare annual [...] DATE CREATED AUTHOR 01/14/2018 [facility] DATE CREATED AUTHOR AUTHOR'S ORGANIZ ATION 02/11/2018 [facility] DATE CREATED AUTHOR AUTHOR'S ORGANIZ ATION 02/11/2018 [facility] DATE CREATED AUTHOR AUTHOR'S ORGANIZ ATION 12/18/2021 [facility] dical Specialist DATE CREATED AUTHOR AUTHOR'S ORGANIZ ATION 01/02/2023 [facility] DATE CREATED AUTHOR AUTHOR'S ORGANIZ ATION 06/19/2024 [facility] DATE CREATED AUTHOR AUTHOR'S ORGANIZ ATION 01/28/2025 [facility] dical Specialists EPIC Care Teams (unrecognized sec tion and content) Coal Gasification Technician Relationship Specialty Start Date End Date Venecia King MD [address] [place] [address] PCP - ACO Reach 12/18/22 Venecia King MD [address] [place] [address] PCP - General Family Medicine 12/02/22Thursday, Yandy, CRISIS MENTAL HEALTH THERAPIST [address] [place] [address] Licensed Practical Nurse Family Medicine 10/12/23 Coal Gasification Technician Relationship Specialty Start Date End Date Venecia King MD [address] [place] [address] PCP - ACO Reach 12/18/22 Venecia King MD [address] [place] [address] PCP - General Family Medicine 12/02/22Thursday, Yandy, CRISIS MENTAL HEALTH THERAPIST [address] [place] [address] Licensed Practical Nurse Family Medicine 10/12/23 Coal Gasification Technician Relationship Specialty Start Date End Date Venecia King MD [address] [place] [address] PCP - ACO Re[place] 12/18/22 Venecia King MD [address] [place] [address] PCP - General Family Medicine 12/02/22Thursday, Yandy, CRISIS MENTAL HEALTH THERAPIST [address] [place] [address] Licensed Practical Nurse Family Medicine 10/12/23 Coal Gasification Technician Relationship Specialty Start Date End Date Venecia King MD [address] [place] [address] PCP - ACO Reach 12/18/22 Venecia King MD [address] [place] [address] PCP - General Family Medicine 12/02/22 Estefani Osman, RN Licensed Practical Nurse Family Medicine 09/02/24 Coal Gasification Technician Relationship Specialty Start Date End Date Venecia King MD [address] [place] [address] PCP - ACO Reach 12/18/22 Venecia King MD [address] [place] [address] PCP - General Family Medicine 12/02/22 Estefani Osman, ALIA Licensed Practical Nurse Family Medicine 09/02/24 Coal Gasification Technician Relationship Specialty Start Date End Date Venecia King MD [address] [place] [address] PCP - ACO Reach 12/18/22 Venecia King MD [address] [place] [address] PCP - General Family Medicine 12/02/22 Estefani Osman, RN Licensed Practical Nurse Family Medicine 09/02/24 Coal Gasification Technician Relationship Specialty Start Date End Date Venecia King MD [address] [place] [address] PCP - ACO Reach 12/18/22 Venecia King MD [address] [place] [address] PCP - General Family Medicine 12/02/22 Celeste Chung LPN [address] [facility] [place] [address] 10/14/24 Coal Gasification Technician Relationship Specialty Start Date End Date Venecia King MD [address] [facility] [address] [place] [address] PCP - ACO Reach 12/18/22 Venecia King MD [address] [facility] [address] [place] [address] PCP - General Family Medicine 12/02/22 Celeste Chung LPN [address] [facility] [place] [address] 10/14/24 Reason for Visit (unrecogniz ed section and [...] the issue but it is still there. Reason Comments Fibromyalgia Pt wants to discuss pain today. FOR RECORDS PERTAINING TO PATIENTS WHO ARE [...] BE BASED ON THE PRIMARY CLINICAL RECORDS. [employer] provides no warranty or guarantee of the accuracy or completeness of information in this document.
== END 2025-02-02 14:52 | disposition home or self-care (01) ==
LOC: PM 14:51
PROVIDERS: PCP Family Medicine; Visit Provider Nurse Practitioner
DX: M79.18 Myalgia, other site (principal); G89.4 Chronic pain syndrome; M15.9 Polyosteoarthritis, unspecified
CPT/HCPCS: G0463

== ENCOUNTER 2025-02-24 02:01 | Outpatient (RCR) | payer MEDICARE, BC, SELFPAY | END 2025-03-23 12:59 | disposition home or self-care (01) | LOC: MM 02:01 | PROVIDERS: PCP Family Medicine; Visit Provider Internal Medicine | DX: Z51.81 Encounter for therapeutic drug level monitoring (principal); Z79.01 Long term (current) use of anticoagulants; I48.20 Chronic atrial fibrillation, unspecified ==

== ENCOUNTER 2025-03-15 12:41 | Outpatient (OUT) | payer MEDICARE, BC, SELFPAY ==
--- OUTSIDE RECORDS SUMMARY | 2025-03-15 12:50 | XMS_ITS | CCD ---
Author Organization [facility] Care Team Providers Care Sanitation Engineer Name Role Phone PHYSICIAN, DEFAULT Unavailable Unavailable PHYSICIAN, DEFAULT Unavailable Unavailable ALLRED, KELLER Unavailable Unavailable CHRISTINE RUGEN Unavailable Unavailable ALLRED, KELLER Unavailable Unavailable [...] DR TRUJILLO Primary Care Unavailable LAKSHMIPATHY ., SCARLETENDCARMENATH Attending Li vailable CHRISTINE, DR TRUJILLO Primary [...] CHRISTINE, DR TRUJILLO Primary Care Unavailable FAWWAD, H Attending Unavailable FAWWAD, BERNSTEIN H Admitting [...] CHRISTINE, DR TRUJILLO Admitting Unavailable WEST, DR RADAH Hills Consulting Unavailable ZIEBER, DR CINTHYA Owens Consulting Unavailable LAKSHMIPATHY ., NARENDRANATH Admitting Li vailable CHRISTINE, DR TRUJILLO Primary Care Unavailable LAKSHMIPATHY ., NARENDRANATH Consulting Li vailable LAKSHMIPATHY ., NARENDRANATH Attending Li vailable CARLINE QUAN Attending Unavailable [place] Venecia GRECO Unavailable Venecia King MD Primary Care Provider Hai CHIROPRACTOR SOLE PRACTITIONER, Yandy Unavailable Estefani Osman RN Unavailable [facility] Celeste Unavailable IGNACIA FELIPE Attending Unavailable HEMIGNACIA PERALTA Attending Unavailable IGNACIA FELIPE Attending Unavailable IGNACIA FELIPE Attending Unavailable CHRISTINEVENECIA Attending Unavailable Allergies Allergy Classification Reported Allergen(s) Allergy Type Date of Onset Reaction(s) Facility (2 sources) Penicillins Drug allergy (disorder) 6 [facility] Repository (1 source) Penicillin; Translations: [PENICILLIN] Drug Allergy 4 [facility] Repository (15 sources) milnacipran Drug Allergy 3 Other [facility] Healthcare (15 sources) Penicillin G Drug Allergy 3 Shortness of breath [facility] Healthcare (5 sources) Semaglutide Propensity to adverse reactions 5 Headache [facility] Medications Current Medications Medication Drug Class(es) Dates Sig (Normalized) Sig (Original) acetaminophen 300 mg / codeine phosphate 30 mg oral tablet (2 sources) Opioid Agonist take 1 tablet by mouth every six hours as needed for pain acetaminophen-cod eine (Tylenol w/ Codeine #3) 300-30 MG tablet Take 1 tablet by mouth every 6 (six) hours if needed for severe pain Active amiodarone hydrochloride 200 mg oral tablet (9 sources) Antiarrhythmic Start: 08-16-2024 End: 02-28-2025 take 1 tablet by mouth once daily amiodarone (Pacerone) 200 MG tablet Take 200 mg by mouth Daily 08/16/2024 02/28/2025 Discontinued CALCIUM MAGNESIUM ZINC PO (15 sources) take 1 tablet by mouth once daily CALCIUM MAGNESIUM ZINC PO Take 1 tablet by mouth Daily Active carvedilol 12.5 mg oral tablet (15 sources) alpha-Adrenergic Nathaniel, beta-Adrenergic Nathaniel Start: 06-06-2024 carvedilol (Coreg) 12.5 MG tablet Indications: Essential hypertension TAKE 1 TABLET TWICE DAILY WITH FOOD 200 tablet 3 06/06/2024 Active Start: 08-17-2023 carvedilol (Co reg) 12.5 MG tablet Indications: Essential hypertension (CMS/HCC) TAKE 1 TABLET TWICE DAILY WITH FOOD 180 tablet 3 08/17/2023 Active Chondroitin Sulfates / Glucosamine (15 sources) take 1 tablet by mouth once [...] hydrochloride 240 mg extended release oral capsule (15 sources) Calcium Channel Nathaniel Start: 2024 dilTIAZem [...] DULoxetine 30 mg delayed release oral capsule (5 sources) Serotonin and Norepinephrine Reuptake Inhibitor Start: 01-26-2025 take 1 capsule by mouth in the morning DULoxetine (Cymbalta) [address] capsule Indications: Fibromyalgia Take 1 capsule (30 mg) by mouth in the morning and 1 capsule (30 mg) before bedtime. Do not crush or chew. 60 capsule 2 01/26/2025 Active furosemide 20 mg oral tablet (15 sources) Loop Diuretic Start: 02-27-2025 furosemide (Lasix) 20 MG tablet Indications: Edema, unspecified type TAKE 1 TABLET TWICE DAILY 180 tablet 3 02/27/2025 Active Start: 05-09-2024 furosemide (La six) 20 MG tablet Indications: Edema, unspecified type TAKE 1 TABLET TWICE DAILY 180 tablet 3 05/09/2024 Active Start: 07-21-2023 furosemide (La six) 20 MG tablet Indications: Edema, unspecified type TAKE 1 TABLET TWICE DAILY 180 tablet 3 07/21/2023 Active ibuprofen 800 mg oral tablet (17 sources) Nonsteroidal Anti-inflammatory Drug Start: 02-28-2025 take 1 tablet by mouth every eight hours for pain ibuprofen 800 MG tablet Indications: Fibromyalgia Take 1 tablet (800 mg) by mouth every 8 (eight) hours if needed for moderate pain Take with food 90 tablet 5 02/28/2025 Active Start: 02-28-2025 take 1 tablet by chacho th every eight hours for pain ibuprofen 800 MG tablet Indications: Fibromyalgia Take 1 tablet (800 mg) by mouth every 8 (eight) hours if needed for moderate pain Take with food 90 tablet 5 02/28/2025 Active Start: 01-16-2025 End: 02-28-2025 take 1 tablet by mouth every eight hours for pain ibuprofen 800 MG tablet Indications: Fibromyalgia , Lumbar strain, initial encounter Take 1 tablet (800 mg) by mouth every 8 (eight) hours if needed for moderate pain 90 tablet 01/16/2025 02/28/2025 Discontinued (Reorder) take 1 tablet by chacho th every eight hours as needed for pain ibuprofen 800 MG tablet Take 800 mg by mouth every 8 (eight) hours if needed for moderate pain Active MAGNESIUM GLYCINATE ADVANCED PO (15 sources) take 1 tablet by mouth once daily MAGNESIUM GLYCINATE ADVANCED PO Take 1 tablet by mouth Daily Active meclizine hydrochloride 25 mg oral tablet (15 sources) Antiemetic take 1 tablet by mouth three times daily as needed for dizziness meclizine (Antivert) 25 MG tablet Take 25 mg by mouth 3 (three) times a day as needed for dizziness Active metaxalone 800 mg oral tablet (15 sources) Start: 06-20-2024 take 1 tablet by [...] 2 diabetes mellitus without complication, unspecified whether terminal superintendent insulin use (CMS/HCC) TAKE 1 TABLET EVERY [...] Active PARoxetine hydrochloride 20 mg oral tablet (15 sources) Serotonin Reuptake Inhibitor Start: 11-10-2023 End: 11-09-2024 PARoxetine (Paxil) 20 MG tablet Indications: Depressive disorder TAKE 1 TABLET EVERY MORNING 90 tablet 3 08/31/2024 Active microencapsulated potassium chloride 10 meq extended release oral tablet (15 sources) Start: 01-09-2025 potassium chlo ride CR [...] 03/07/2024 Active pregabalin 50 mg oral capsule (9 sources) Start: 08-12-2024 take 1 capsule by [...] Active warfarin sodium 5 mg oral tablet (15 sources) Vitamin K Antagonist Start: 07-21-2024 warfarin [...] Problem Date Documented Date Episodic/Chronic Adjustment disorders (15 sources) Adjustment disorder in remission; Translations: [Adjustment disorder, unspecified] Onset: 02-23-2023 02-23-2023 Chronic Asthma (16 sources) Unspecified asthma, uncomplicated; Translations: [Asthmatic bronchitis] Onset: 12-18-2022 02-23-2023 Chronic Cardiac and circulatory congenital anomalies (16 sources) Atrial septal defect; Translations: [Atrial septal defect] Onset: 04-04-2024 04-04-2024 Chronic Cardiac dysrhythmias (20 sources) Unspecified atrial fibrillation; Translations: [Paroxysmal atrial fibrillation] Onset: 10-27-2022 Chronic Cardiac dysrhythmias (1 source) Cardiac dysrhythmias Onset: 02-08-2018 Coagulation and hemorrhagic disorders (15 sources) Thrombophilia; Translations: [Other thrombophilia] Onset: 03-07-2024 03-07-2024 Chronic Deficiency and other anemia (4 sources) Iron deficiency anemia secondary to blood loss (chronic); Translations: [IRON DEFIC ANEMIA SEC BLD LOSS CHRN] Onset: 05-22-2022 Chronic Deficiency and other anemia (15 sources) Iron deficiency anemia due to blood loss; Translations: [Iron deficiency anemia secondary to blood loss (chronic)] Onset: 02-23-2023 02-23-2023 Chronic Diabetes mellitus without complication (20 sources) Impaired glucose tolerance; Translations: [Impaired glucose tolerance (oral)] Onset: 02-23-2023 02-23-2023 Episodic Disorders of lipid metabolism (20 sources) Hyperlipidemia; Translations: [Hyperlipidemia, unspecified] Onset: 02-23-2023 02-23-2023 Chronic Essential hypertension (20 sources) Essential (primary) hypertension; Translations: [Essential hypertension] Onset: 12-18-2022 02-23-2023 Chronic Heart valve disorders (16 sources) Tricuspid incompetence, non-rheumatic ; Translations: [Nonrheumatic tricuspid (valve) insufficiency] Onset: 04-04-2024 04-04-2024 Chronic Menopausal disorders (20 sources) Other primary ovarian failure; Translations: [Decreased estrogen level] Onset: 01-08-2022 Chronic Mood disorders (15 sources) Depressive disorder; Translations: [Depressive disorder] Onset: 02-23-2023 02-23-2023 Chronic Osteoarthritis (20 sources) Unilateral primary osteoarthritis, right knee; Translations: [Bilateral primary osteoarthritis of knee] Onset: 12-06-2022 Resolved: 03-07-2024 Chronic Osteoporosis (20 sources) Osteoporosis; Translations: [Other osteoporosis without current pathological fracture] Onset: 02-23-2023 Resolved: 09-09-2024 02-23-2023 Chronic Other aftercare (5 sources) Encounter for therapeutic drug level monitoring; Translations: [[facility]] Onset: 11-22-2022 Episodic Other aftercare (1 source) penitentiary (current) use of anticoagulants; Translations: [SURGICAL BRACE MAKER CURRNT USE ANTICOAGULANTS] Onset: 12-24-2022 Episodic Other aftercare (4 sources) Drug therapy finding; Translations: [penitentiary (current) use of anticoagulants] Onset: 02-28-2025 02-28-2025 Episodic Other and ill-defined heart disease (16 sources) Bilateral enlargement of atria; Translations: [Cardiomegaly] Onset: 02-23-2023 04-04-2024 Chronic Other and ill-defined heart disease (1 source) Left atrial dilatation; Translations: [Cardiomegaly] Onset: 02-23-2023 02-23-2023 Chronic Other connective tissue disease (1 source) Fibromyalgia; Translations: [FIBROMYALGIA] Onset: 12-18-2022 Episodic Other connective tissue disease (19 sources) Fibromyalgia; Translations: [Fibromyalgia] Onset: 02-23-2023 02-23-2023 Episodic Other lower respiratory disease (1 source) [...] Chronic Other nutritional; endocrine; and metabolic disorders (17 sources) Body mass index 40+ - severely obese; Translations: [Body mass index (BMI) 40.0-44.9, adult] Onset: 03-07-2024 03-07-2024 Chronic Other nutritional; endocrine; and metabolic disorders (10 sources) Obesity caused by energy imbalance; Translations: [Morbid (severe) obesity due to excess calories] Onset: 02-23-2023 09-09-2024 Chronic Other skin disorders (2 sources) Skin irritation ; Translations: [Other skin changes] 09-09-2024 Episodic Pulmonary heart disease (12 sources) Pulmonary hypertension; Translations: [Pulmonary hypertension, unspecified] Onset: 09-09-2024 04-04-2024 Chronic Residual codes; unclassified (1 source) Sleep apnea, unspecified; Translations: [SLEEP APNEA UNSPECIFIED] Onset: 12-18-2022 Chronic Residual codes; unclassified (15 sources) Obstructive sleep apnea syndrome; Translations: [Obstructive sleep apnea (adult) (pediatric)] Onset: 02-23-2023 02-23-2023 Chronic Unclassified (2 sources) Dyspnea, unspecified / R06.00(ICD-9) Onset: 02-08-2018 Unclassified (1 source) Tachycardia, unspecified / R00.0(ICD-9) Onset: 02-08-2018 Past or Other Problems Problem Classification Problem Date Documented Da te Episodic/Chronic Neoplasms of unspecified nature or uncertain behavior (15 sources) Neoplasm of uncertain behavior of skin of hand; Translations: [Neoplasm of uncertain behavior of skin] Onset: 03-07-2024 03-07-2024 Episodic Other bone disease and musculoskeletal deformities (1 source) Other specified disorders of bone density and structure, left thigh; Translations: [OTH D/O BONE DEN STRUCT LT THIGH] Onset: 01-23-2022 Episodic Other connective tissue disease (15 sources) Muscle pain; Translations: [Myalgia, unspecified site] Onset: 02-23-2023 02-23-2023 Episodic Other ear and sense organ disorders (15 sources) Bilateral tinnitus; Translations: [Tinnitus, bilateral] Onset: 02-23-2023 02-23-2023 Episodic Other lower respiratory disease (15 sources) Dyspnea on exertion; Translations: [Other forms of dyspnea] Onset: 03-07-2024 03-07-2024 Episodic Other screening for suspected conditions (not mental disorders or infectious disease) (16 sources) Encounter for screening mammogram for malignant neoplasm of breast; Translations: [Patient encounter status] Onset: 01-23-2022 03-24-2023 Episodic Other skin disorders (15 sources) Bilateral localized swelling of lower legs; Translations: [Localized swelling, mass and lump, lower limb, bilateral] Onset: 03-07-2024 03-07-2024 Episodic Residual codes; unclassified (1 source) Family history of malignant neoplasm of breast; Translations: [FAMILY HX MALIG NEOPLASM OF BREAST] Onset: 01-23-2022 Episodic Unclassified (15 sources) Onset: 10-14-2023 10-14-2023 Results Test Name Value Interpretation Reference Range Facility ALBUMIN, RANDOM URINE W/CREA TININEon 03-01-2025 ALBUMIN, URINE <0.2 Normal See Note: [facility] Comment on above: Result Comment: Refe rence Range: Reference Range Not established Performed By: #### 6 517 #### [facility] [address], [address] [place] [address] Human Machine Interface Engineer: Steve Chávez MD ALBUMIN/CREATININE RATIO, RANDOM URINE NOTE Normal <30 [facility] Comment on above: Result Comment: NOTE : The urine albumin value is less than [...] patient to be within a diagnostic category. Performed By: #### 6 517 #### [facility] [address], [address] [place] [address] Human Machine Interface Engineer: Steve Chávez MD Creatinine (U) [Mass/Vol] 17 mg/dL Low 20-275 [facility] Comment on above: Performed By: #### 6 517 #### [facility] [address], [address] [place] [address] Human Machine Interface Engineer: Steve Chávez MD Laboratory - Cytologyon Microscopic observation Cyto stain Nom (Cvx) 2.3 [facility] [email or web address] No Panel Informationon 02-28 Interpretation and review of laboratory results Normal [facility] [employer] Laboratory - Hematology and Cell countson 01-26-2025 HbA1c (Bld) [Mass fraction] 5.8 % [facility] No Panel Informationon 01-26 Interpretation and review of laboratory results Abnormal [facility] Healthcare [facility] XR DEXA AXIAL SKELETONon [address] [address] XRay Report Signed Patient: LESLIE LOPEZ MR#: [id number] : 1950 Acct:[id number] Age/Sex: 73 / F ADM Date: 09/02/24 Loc: RAD Attending Dr: VENECIA KING Ordering Physician: VENECIA KING Date of Service: 09/02/24 Procedure(s): XR DEXA axial skeleton Accession Number(s): [id number] cc: VENECIA KING [address] [address] Patient Name: LESLIE LOPEZ MRN: [id number] date: 1950 Sex: F Assigned Patient Location: [facility] Current Patient Location: Accession/Order Number: [id number] Exam Date: 09/02/2024 11:05 Report Date: 09/05/2024 [...] MS, Evelyn SL, Sherry KL, Heather EM, Kritsin KG, AJ, Tawny ES. The clinician's guide to prevention and treatment of osteoporosis. Osteoporos Int. 2021;33(10):3038-1035 . doi: 10.1007/h85599-809-1 5900-y. Epub 2021Nov 21. Erratum in: Osteoporos Int. 2021Feb 20;: PMID: 78120742; PMCID: [id number]. Electronically authenticated by: RADHA TRINIDAD Date: 09/05/2024 08:35 Dictated By: Radha Trinidad M.D. Signed By: 09/05/2437 DD/ TD/TT: Recovery Engineer: [facility] Radiology, Radiologist, - 09/05/2024 [place] [address] XRay Report Signed Patient: LESLIE LOPEZ MR#: [id number] : 1950 Acct:[id number] Age/Sex: 73 / F ADM Date: 09/02/24 Loc: [facility] Attending Dr: VENECIA KING Ordering Physician: VENECIA KING Date of Service: 09/02/24 Procedure(s): XR DEXA axial skeleton Accession Number(s): [id number] cc: VENECIA KING [address] [place] [address] Patient Name: LESLIE LOPEZ MRN: [id number] date: 1950 Sex: F Assigned Patient Location: [facility] Current Patient Location: Accession/Order Number: [id number] Exam Date: 09/02/2024 11:05 Report Date: 09/05/2024 [...] Sherry KL, Heather EM, Kristin KG, AJ, Siris ES. The clinician's guide to prevention and treatment of osteoporosis. Osteoporos Int. 2021;33(10):9185-1438 . doi: 10.1007/g48332-972-5 5900-y. Epub 2021Nov 21. Erratum in: Osteoporos Int. 2021Feb 20;: PMID: 32631579; PMCID: [id number]. Electronically authenticated by: RADHA TRINIDAD Date: 09/05/2024 08:35 Dictated By: Radha Trinidad M.D. Signed By: 09/05/2437 DD/ 4 TD/TT: Recovery Engineer: [facility] [email or web address] Radiology Study observation (narrative) [facility] [email or web address] XR DEXA AXIAL SKELETONOrdere d By: Radiologist Radiology on 09-05-2024 [facility] Work Phone: [facility] PROTHROMBIN TIME INR W/O COUMon 08-02-2024 PT Coag (PPP) [Time] 11 s [facility] INR 1.04 [facility] Healthcar e Comment on above: DESIRED INR: 2.0-3.0 CONDITIONS NOT LISTED BELOW 2.5-3.5 FOR PROSTHETIC HEART VALVE REPLACEMENT 2.5-3.5 RECURRENT THROMBOSIS CLINISYNC [facility] Healthcar e [facility] PROTHROMBIN TIME INR W/O COUMon 07-12-2024 Interpretation and review of laboratory results Abnormal [facility] [email or web address] PT Coag (PPP) [Time] 13.3 s High [facility] [email or web address] [facility] INR 1.29 [facility] Health[facility] e Comment on above: DESIRED INR: 2.0-3.0 CONDITIONS NOT LISTED BELOW 2.5-3.5 FOR PROSTHETIC HEART VALVE REPLACEMENT 2.5-3.5 RECURRENT THROMBOSIS CLINISYNC [employer] Office Visiton 06-07-2024 Follow-up visit [id number] Leslie Lopez 1950 F Date Provider Department Center 06/07/2024 CARLINE SHRESTHA Family History Problem Relation Age of Onset No Known Problems Mother No Known Problems Father Family Status - Relation Status Age at Mother Father Level of Service:66356 [place] OFFICE/OUTPATIENT NEW MODERATE MDM 45 MINUTES Normal [facility] PROTIMEon 12-16-2022 INR Coag (PPP) [Relative time] 1.02 {INR} Normal [facility] Comment on above: Performed By: #### P T #### [facility] Laboratory [address] [place] [address] Dr. Justyn Quintanilla INR GUIDELINES SEE BELOW Normal [facility] Comment on above: Result Comment: THAI RED INR: 2.0 - 3.0 CONDITIONS NOT LISTED BELOW 2.5 - 3.5 FOR PROSTHETIC HEART VALVE REPLACEMENT 2.5 - 3.5 RECURRENT THROMBOSIS Performed By: #### P T #### [facility] [address] [place] [address] Dr. Justyn Quintanilla PT Coag (PPP) [Time] 10.8 s Normal 9.0-11.6 [facility] Comment on above: Performed By: #### P T #### [facility] [address] [place] [address] Dr. Justyn Quintanilla CBC AUTO DIFFon 05-22-2022 BASO # 0.0 103/ul Normal 0.0-0.1 [facility] Comment on above: Performed By: #### C BC #### [facility] [address] [place] [address] Dr. Justyn Quintanilla Basophils/100 WBC (Bld) 0.5 % Normal 0.2-2.0 [facility] Comment on above: Performed By: #### C BC #### [facility] [address] [place] [address] Dr. Justyn Quintanilla EO # 0.1 103/ul Normal 0.0-0.7 [facility] Comment on above: Performed By: #### C BC #### [facility] [address] [place] [address] Dr. Justyn Quintanilla Eosinophils/100 WBC (Bld) 2.9 % Normal 0.9-7.0 [facility] Comment on above: Performed By: #### C BC #### [facility] [address] [place] [address] Dr. Justyn Quintanilla Erythrocyte distribution width (RBC) [Ratio] 20.7 % Critically high 11.0-15.0 [facility] Comment on above: Performed By: #### C BC #### [facility] [address] [place] [address] Dr. Justyn Quintanilla Hematocrit (Bld) [Volume fraction] 29.7 % Critically low 36.0-48.0 [facility] Comment on above: Performed By: #### C BC #### [facility] [address] [place] [address] Dr. Justyn Quintanilla Hemoglobin (Bld) [Mass/Vol] 9.0 g/dL Critically low 12.0-16.0 [facility] Comment on above: Performed By: #### C BC #### [facility] [address] [place] [address] Dr. Justyn Quintanilla IG # 0.01 10e3/ul Normal 0.00-0.03 [facility] Comment on above: Performed By: #### C BC #### [facility] [address] [place] [address] Dr. Justyn Quintanilla IG % 0.2 % Normal 0.0-0.5 [facility] Comment on above: Performed By: #### C BC #### [facility] [address] [place] [address] Dr. Justyn Quintanilla LYMPH # 1.2 103/ul Normal 1.2-3.8 [facility] Comment on above: Performed By: #### C BC #### [facility] [address] [place] [address] Dr. Justyn Quintanilla Lymphocytes/100 WBC (Bld) 29.0 % Normal 20.5-60.0 [facility] Comment on above: Performed By: #### C BC #### [facility] [address] [place] [address] Dr. Justyn Quintanilla MANUAL DIFF REQ NO Normal [facility] Comment on above: Performed By: #### C BC #### [facility] [address] [place] [address] Dr. Justyn Quintanilla MCH (RBC) [Entitic mass] 28.6 pg Normal 26.7-34.0 [facility] Comment on above: Performed By: #### C BC #### [facility] [address] [place], [place] [id number] Dr. Justyn Quintanilla MCHC (RBC) [Mass/Vol] 30.3 g/dL Normal 29.9-35.2 [facility] Comment on above: Performed By: #### C BC #### [facility] [address] [place] [address] Dr. Justyn Quintanilla MCV (RBC) [Entitic vol] 94.3 fL Normal 81.0-99.0 [facility] Comment on above: Performed By: #### C BC #### [facility] [address] [place] [address] Dr. Justyn Quintanilla MONO # 0.4 103/ul Normal 0.3-0.8 [facility] Comment on above: Performed By: #### C BC #### [facility] [address] [place] [address] Dr. Justyn Quintanilla Monocytes/100 WBC (Bld) 9.8 % Normal 1.7-12.0 [facility] Comment on above: Performed By: #### C BC #### [facility] [address] [place] [address] Dr. Justyn Quintanilla NEUT # 2.3 103/ul Normal 1.4-6.5 [facility] Comment on above: Performed By: #### C BC #### [facility] [address] [place] [address] Dr. Justyn Quintanilla Neutrophils/100 WBC (Bld) 57.6 % Normal 43.0-75.0 [facility] Comment on above: Performed By: #### C BC #### [facility] [address] [place] [address] Dr. Justyn Quintanilla Platelet mean volume (Bld) [Entitic vol] 9.2 fL Critically low 9.5-13.5 [facility] Comment on above: Performed By: #### C BC #### [facility] [address] [place] [address] Dr. Justyn Quintanilla PLT 361 103/ul Normal 150-450 [facility] Comment on above: Performed By: #### C BC #### [facility] [address] [place] [address] Dr. Justyn Quintanilla RBC 3.15 106/ul Critically low 4.20-5.40 [facility] Comment on above: Performed By: #### C BC #### [facility] [address] [address] [address] Justyn Quintanilla WBC 4.1 103/ul Normal 4.0-11.0 [facility] Comment on above: Performed By: #### C BC #### [facility] [address] [address] [address] Justyn Quintanilla MG MAMM SCREEN 3D JACQUELINE CADon 01-08-2022 MG MAMM SCREEN 3D JACQUELINE CAD Patient: LESLIE LOPEZ Exam Date: 01/08/2022 : 1950 Gender:F Ordering : DR VENECIA KING M.D. Admission #: [id number] Family : Order #: [id number] CLICK HERE TO VIEW EXAM RADIOLOGY REPORT [...] breast cancer at age 81. LOCATION: [facility] BREAST COMPOSITION: Scattered areas fibroglandular [...] Trinidad MD on 01/23/2022 at 08:05 Normal [facility] XR DEXA BONE DENSITYon 01-08 XR DEXA [...] by: CINTHYA PHAM Date: 2022-01-08 18:00 Normal [facility] Complete Blood Count with Au to Diffon 12-17-2021 Basophils (Bld) [#/Vol] 0.05 10*3/uL Normal 0.00-0.20 [facility] [employer] Engineer Comment on above: Performed By: #### V ITD, LIPD, smear, CBCAD, CMP #### [facility] [address], [place] [id number] Basophils/100 WBC (Bld) 1.3 % Normal [facility] [employer] Comment on above: Performed By: #### V ITD, LIPD, smear, CBCAD, CMP #### [facility] [address], [place] [id number] Eosinophils (Bld) [#/Vol] 0.08 10*3/uL Normal 0.02-0.50 [facility] [employer] Engineer Comment on above: Performed By: #### V ITD, LIPD, smear, CBCAD, CMP #### [facility] [address], [place] [id number] Eosinophils/100 WBC (Bld) 2.1 % Normal [facility] [employer] Engineer Comment on above: Performed By: #### V ITD, LIPD, smear, CBCAD, CMP #### [facility] [address], [place] [id number] Erythrocyte distribution width (RBC) [Ratio] 17.8 % High 11.0-15.0 [facility] [employer] Engineer Comment on above: Performed By: #### V ITD, LIPD, smear, CBCAD, CMP #### [facility] [address], [place] [id number] Hematocrit (Bld) [Volume fraction] 30.4 % Low 35.0-47.0 [facility] Specialist Comment on above: Performed By: #### V ITD, LIPD, smear, CBCAD, CMP #### [facility] [address], [place] [id number] Hemoglobin (Bld) [Mass/Vol] 8.7 g/dL Low 11.6-15.5 [facility] Specialist Comment on above: Performed By: #### V ITD, LIPD, smear, CBCAD, CMP #### [facility] [address], [place] [id number] Lymphocytes (Bld) [#/Vol] 1.0 10*3/uL Normal 0.9-3.9 [facility] Specialist Comment on above: Performed By: #### V ITD, LIPD, smear, CBCAD, CMP #### [facility] [address], [place] [id number] Lymphocytes/100 WBC (Bld) 25.1 % Normal [facility] Specialist Comment on above: Performed By: #### V ITD, LIPD, smear, CBCAD, CMP #### [facility] [address], [place] [id number] MCH (RBC) [Entitic mass] 21.1 pg Low 27.0-33.0 [facility] Specialist Comment on above: Performed By: #### V ITD, LIPD, smear, CBCAD, CMP #### [facility] [address], [place] [id number] MCHC (RBC) [Mass/Vol] 28.6 g/dL Low 32.0-36.0 [facility] Specialist Comment on above: Performed By: #### V ITD, LIPD, smear, CBCAD, CMP #### [facility] [address], [place] [id number] MCV (RBC) [Entitic vol] 74 fL Low 80-100 [facility] Specialist Comment on above: Performed By: #### V ITD, LIPD, smear, CBCAD, CMP #### [facility] [address], [place] [id number] Monocytes (Bld) [#/Vol] 0.4 10*3/uL Normal 0.2-0.9 [facility] Specialist Comment on above: Performed By: #### V ITD, LIPD, smear, CBCAD, CMP #### [facility] [address], [place] [id number] Monocytes/100 WBC (Bld) 9.9 % Normal [facility] Comment on above: Performed By: #### V ITD, LIPD, smear, CBCAD, CMP #### [facility] [address], [place] [id number] Neutrophils (Bld) [#/Vol] 2.4 10*3/uL Normal 1.5-7.8 [facility] Specialist Comment on above: Performed By: #### V ITD, LIPD, smear, CBCAD, CMP #### [facility] [address], [place] [id number] Neutrophils/100 WBC (Bld) 61.3 % Normal [facility] Comment on above: Performed By: #### V ITD, LIPD, smear, CBCAD, CMP #### [facility] [address], [place] [id number] Platelet mean volume (Bld) [Entitic vol] 10.00 fL Normal 7.50-12.50 [facility] Comment on above: Performed By: #### V ITD, LIPD, smear, CBCAD, CMP #### [facility] [address], [place] [id number] Platelets (Bld) [#/Vol] 255 10*3/uL Normal 140-400 [facility] Specialist Comment on above: Performed By: #### V ITD, LIPD, smear, CBCAD, CMP #### [facility] [address], [place] [id number] RBC (Bld) [#/Vol] 4.13 10*6/uL Normal 3.90-5.20 [facility] Comment on above: Performed By: #### V ITD, LIPD, smear, CBCAD, CMP #### [facility] [address], [place] [id number] RDW-SD 46.7 fL Normal 37.0-50.0 [facility] Specialist Comment on above: Performed By: #### V ITD, LIPD, smear, CBCAD, CMP #### [facility] [address], [place] [id number] REFLEX Smear Review Normal [facility] Comment on above: Performed By: #### V ITD, LIPD, smear, CBCAD, CMP #### [facility] [address], [place] [id number] WBC (Bld) [#/Vol] 3.8 10*3/uL Normal 3.8-11.0 [facility] Corrosion Control Engineer Comment on above: Performed By: #### V ITD, LIPD, smear, CBCAD, CMP #### [facility] [address], [place] [id number] Comprehensive Metabolic Pane [facility] 12-17-2021 Albumin [Mass/Vol] 4.1 g/dL Normal 3.6-5.1 [facility] [employer] Control Engineer Comment on above: Performed By: #### V ITD, LIPD, smear, CBCAD, CMP #### [facility] [address], [place] [id number] Albumin/Globulin [Mass ratio] 2.0 {ratio} Normal 1.0-2.5 [facility] Specialist Comment on above: Performed By: #### V ITD, LIPD, smear, CBCAD, CMP #### [facility] [address], [place] [id number] ALP [Catalytic activity/Vol] 85 U/L Normal 35-119 [facility] Specialist Comment on above: Performed By: #### V ITD, LIPD, smear, CBCAD, CMP #### [facility] [address], [place] [id number] ALT [Catalytic activity/Vol] 12 U/L Normal 6-33 [facility] Specialist Comment on above: Result Comment: 06/26 Female reference range changed. Performed By: #### V ITD, LIPD, smear, CBCAD, CMP #### [facility] [address], [place] [id number] Anion gap [Moles/Vol] 15 mmol/L Normal 12-20 [facility] [employer] Engineer Comment on above: Result Comment: Effe ctive 08/01/2019 reference range changed. Performed By: #### V ITD, LIPD, smear, CBCAD, CMP #### [facility] [address], [place] [id number] AST [Catalytic activity/Vol] 18 U/L Normal 9-34 [facility] Comment on above: Performed By: #### V ITD, LIPD, smear, CBCAD, CMP #### [facility] [address], [place] [id number] Bilirubin [Mass/Vol] 0.47 mg/dL Normal 0.30-1.20 [facility] Comment on above: Performed By: #### V ITD, LIPD, smear, CBCAD, CMP #### [facility] [address], [place] [id number] BUN/CREA 28 Ratio High 6-22 [facility] Comment on above: Performed By: #### V ITD, LIPD, smear, CBCAD, CMP #### [facility] [address], [place] [id number] Calcium [Mass/Vol] 9.3 mg/dL Normal 8.6-10.2 [facility] Comment on above: Performed By: #### V ITD, LIPD, smear, CBCAD, CMP #### [facility] [address], [place] [id number] Chloride [Moles/Vol] 103 mmol/L Normal 98-107 [facility] Comment on above: Performed By: #### V ITD, LIPD, smear, CBCAD, CMP #### [facility] [address], [place] [id number] CO2 [Moles/Vol] 27 mmol/L Normal 20-31 [facility] Comment on above: Performed By: #### V ITD, LIPD, smear, CBCAD, CMP #### [facility] [address], [place] [id number] Creatinine [Mass/Vol] 0.6 mg/dL Normal 0.6-1.4 [facility] Comment on above: Performed By: #### V ITD, LIPD, smear, CBCAD, CMP #### [facility] [address], [place] [id number] eGFRAA 122 mL/min/1.73m2 Normal >60 [facility] Corrosion Control Engineer Comment on above: Performed By: #### V ITD, LIPD, smear, CBCAD, CMP #### [facility] [address], [place] [id number] eGFRNAA 101 mL/min/1.73m2 Normal >60 [facility] Corros[employer] Control Engineer Comment on above: Performed By: #### V ITD, LIPD, smear, CBCAD, CMP #### [facility] [address], [place] [id number] Globulin (S) [Mass/Vol] 2.1 g/dL Normal 1.9-3.7 [facility] Specialist Comment on above: Performed By: #### V ITD, LIPD, smear, CBCAD, CMP #### [facility] [address], [place] [id number] Glucose [Mass/Vol] 100 mg/dL High 65-99 [facility] Corrosion Control Engineer Comment on above: Result Comment: For FASTING Glucose --- ADA reference ranges: Normal 65-99 mg/dl Prediabetes 100-125 Diabetes >/= 126 Performed By: #### V ITD, LIPD, smear, CBCAD, CMP #### [facility] [address], [place] [id number] Potassium [Moles/Vol] 4.8 mmol/L Normal 3.5-5.5 [facility] [employer] Control Engineer Comment on above: Performed By: #### V ITD, LIPD, smear, CBCAD, CMP #### [facility] [address], [place] [id number] Protein [Mass/Vol] 6.2 g/dL Normal 6.1-8.1 [facility] Corrosion Control Engineer Comment on above: Performed By: #### V ITD, LIPD, smear, CBCAD, CMP #### [facility] [address], [place] [id number] Sodium [Moles/Vol] 140 mmol/L Normal 135-146 [facility] Corros[employer] Control Engineer Comment on above: Performed By: #### V ITD, LIPD, smear, CBCAD, CMP #### [facility] [address], [place] [id number] Urea nitrogen [Mass/Vol] 16 mg/dL Normal 7-25 [facility] [employer] Control Engineer Comment on above: Performed By: #### V ITD, LIPD, smear, CBCAD, CMP #### [facility] [address], [place] [id number] Hemoglobin A1Con 12-17-2021 EAG 122.63 Normal [facility] Specialist Comment on above: Performed By: #### A 1C #### [facility] [address], [place] [id number] HbA1c (Bld) [Mass fraction] 5.9 % Normal 4.0-6.0 [facility] Corros[employer] Control Engineer Comment on above: Performed By: #### A 1C #### [facility] [address], [place] [id number] Lipid Panelon 12-17-2021 Cholesterol [Mass/Vol] 178 mg/dL Normal 125-200 [facility] [employer] Control Engineer Comment on above: Result Comment: Low risk < 200mg/dL Borderline risk 201-239 mg/dl High risk > or equal to 240 Performed By: #### V ITD, LIPD, smear, CBCAD, CMP #### [facility] [address], [place] [id number] Cholesterol in HDL [Mass/Vol] 54 mg/dL Normal >40 [facility] [employer] Control Engineer Comment on above: Result Comment: High Cardiovascular Risk HDL <40 mg/dL Low Cardiovascular Risk HDL > or equal to 60 mg/dl Performed By: #### V ITD, LIPD, smear, CBCAD, CMP #### [facility] [address], [place] [id number] Cholesterol in LDL [Mass/Vol] 111 mg/dL Normal [facility] Corros[employer] Control Engineer Comment on above: Result Comment: LDL ATP III CLASSIFICATION LDL less than 100 mg/dl Optimal LDL 100-129 mg/dl Near or above optimal LDL 130-159 Borderline high LDL 160-189 High LDL greater than 189 mg/dl Very High Performed By: #### V ITD, LIPD, smear, CBCAD, CMP #### [facility] [address], [place] [id number] Cholesterol in VLDL [Mass/Vol] 13 mg/dL Normal [facility] Cor[employer] Control Engineer Comment on above: Performed By: #### V ITD, LIPD, smear, CBCAD, CMP #### [facility] [address], [place] [id number] Cholesterol.total/Ch olesterol in HDL [Mass ratio] 3 {ratio} Normal [facility] Specialist Comment on above: Performed By: #### V ITD, LIPD, smear, CBCAD, CMP #### [facility] [address], [place] [id number] Triglyceride [Mass/Vol] 67 mg/dL Normal 30-150 [facility] [employer] Control Engineer Comment on above: Result Comment: TRIG ATPIII CLASSIFICATIONS TRIG less than 150 mg/dl Normal TRIG 150-199 mg/dl Borderline High TRIG 200-500 mg/dl High TRIG greather than 500 mg/dl Very High Performed By: #### V ITD, LIPD, smear, CBCAD, CMP #### [facility] [address], [place] [id number] Smear Reviewon 12-17-2021 PLT EST Adequate Normal [facility] Specialist Comment on above: Performed By: #### V ITD, LIPD, smear, CBCAD, CMP #### [facility] [address], [place] [id number] RBC morphology finding Nom (Bld) RBC morphology review confirms RBC indices Normal [facility] Specialist Comment on above: Performed By: #### V ITD, LIPD, smear, CBCAD, CMP #### [facility] [address], [place] [id number] Vitamin D 25-OHon 12-17-2021 VIT D 25 OH 48 ng/ml Normal >29 [facility] Cor[employer] Control Engineer Comment on above: Result Comment: Miladys min D Status Deficiency <20 ng/mL Insufficiency 20-29 ng/mL Optimal 30-100 ng/mL Possible Toxicity >=150 ng/mL Performed By: #### V ITD, LIPD, smear, CBCAD, CMP #### [facility] [address], [place] [id number] Vital Signs Date Time Vital Sign Value Performing Clinician [place] [facility] 02-28-2025 10:45-0400 Body height 165.1 cm Ignacia MARQUEZ Work Phone: [facility] 02-28-2025 10:45-0400 Body mass index (BMI) [Ratio] 44.9 kg/m2 Ignacia Felipe PA Work Phone: [facility] 02-28-2025 10:45-0400 Body weight 122.38 kg Ignacia Hemmer PA Work Phone: [facility] 02-28-2025 10:45-0400 Diastolic blood pressure 88 mm[Hg] Ignacia Hemmer PA Work Phone: [facility] 02-28-2025 10:45-0400 Heart rate 88 /min Ignacia Hemmer PA Work Phone: [facility] 02-28-2025 10:45-0400 Respiratory rate 16 /min Ignacia Hemmer PA Work Phone: [facility] 02-28-2025 10:45-0400 SaO2% (BldA) [Mass fraction] 96 % Ignacia Hemmer PA Work Phone: [facility] 02-28-2025 10:45-0400 Systolic blood pressure 136 mm[Hg] Ignacia Hemmer PA Work Phone: [facility] 01-26-2025 10:01-0400 Body height 165.1 cm Ignacia Hemmer PA Work Phone: [facility] 01-26-2025 10:01-0400 Body mass index (BMI) [Ratio] 45.2 kg/m2 Ignacia Hemmer PA Work Phone: [facility] 01-26-2025 10:01-0400 Body weight 123.2 kg Ignacia Hemmer PA Work Phone: [facility] 01-26-2025 10:01-0400 Diastolic blood pressure 96 mm[Hg] Ignacia Hemmer PA Work Phone: [facility] 01-26-2025 10:01-0400 Heart rate 88 /min Ignacia Hemmer PA Work Phone: [facility] 01-26-2025 10:01-0400 Respiratory rate 16 /min Ignacia Hemmer PA Work Phone: [facility] 01-26-2025 10:01-0400 SaO2% (BldA) [Mass fraction] 95 % Ignacia Hemmer PA Work Phone: [facility] 01-26-2025 10:01-0400 Systolic blood pressure 124 mm[Hg] Ignacia Hemmer PA Work Phone: [facility] 09-09-2024 11:02-0500 Body height 165.1 cm Ignacia Hemmer PA Work Phone: [facility] 09-09-2024 11:02-0500 Body mass index (BMI) [Ratio] 44.13 kg/m2 Ignacia Hemmer PA Work Phone: [facility] 09-09-2024 11:02-0500 Body weight 120.29 kg Ignacia Hemmer PA Work Phone: [facility] 09-09-2024 11:02-0500 Diastolic blood pressure 92 mm[Hg] Ignacia Hemmer PA Work Phone: [facility] 09-09-2024 11:02-0500 Heart rate 66 /min Ignacia Hemmer PA Work Phone: [facility] 09-09-2024 11:02-0500 Respiratory rate 16 /min Ignacia Hemmer PA Work Phone: [facility] 09-09-2024 11:02-0500 SaO2% (BldA) [Mass fraction] 97 % Ignacia Hemmer PA Work Phone: [facility] 09-09-2024 11:02-0500 Systolic blood pressure 128 mm[Hg] Ignacia Hemmer PA Work Phone: [facility] 04-04-2024 10:07-0400 Body height 165.1 cm Venecia King MD Work Phone: [facility] 04-04-2024 10:07-0400 Body mass index (BMI) [Ratio] 43.6 kg/m2 Venecia King MD Work Phone: [facility] 04-04-2024 10:07-0400 Body weight 118.84 kg Venecia King MD Work Phone: [facility] 04-04-2024 10:07-0400 Diastolic blood pressure 88 mm[Hg] Venecia King MD Work Phone: [facility] 04-04-2024 10:07-0400 Heart rate 90 /min Venecia King MD Work Phone: [facility] 04-04-2024 10:07-0400 SaO2% (BldA) [Mass fraction] 98 % Venecia King MD Work Phone: [facility] 04-04-2024 10:07-0400 Systolic blood pressure 120 mm[Hg] Venecia King MD Work Phone: [facility] Encounters Encounter Date Encounter Type Care Provider Facility Start: 02-28-2025 End: 02-28-2025 Bamboo flowsheet Ignacia Felipe PA Work Phone: [facility] Start: 02-28-2025 End: 02-28-2025 Bamboo flowsheet Ignacia Felipe PA Work Phone: [facility] Start: 02-28-2025 End: 02-28-2025 Office outpatient visit 25 minutes Ignacia Felipe PA Work Phone: [facility] Comment on above: Paroxysmal atrial fi brillation (HCC) (Primary Dx); Fibromyalgia; Glucose intolerance (impaired glucose tolerance); Anticoagulated; Primary osteoarthritis of both knees Start: 02-28-2025 End: 02-28-2025 ambulatory IGNACIA FELIPE Not Available Start: 01-26-2025 End: 01-26-2025 Bamboo flowsheet Ignacia Felipe PA Work Phone: [facility] Start: 01-26-2025 End: 01-26-2025 Bamboo flowsheet Ignacia Felipe PA Work Phone: [facility] Start: 01-26-2025 End: 01-26-2025 Office outpatient visit 25 minutes Ignacia Felipe PA Work Phone: [facility] Comment on [...] 09-09-2024 Office outpatient visit 25 minutes Ignacia Felipe PA Work Phone: [facility] Comment on [...] Unsolicited Start: 06-07-2024 End: 06-07-2024 ambulatory [facility] Start: 04-04-2024 End: 04-04-2024 Blanca King MD Work Phone: [facility] Start: 04-04-2024 End: 04-04-2024 Blanca King MD Work Phone: [facility] Start: 04-04-2024 End: 04-04-2024 Assay of hemosiderin, quant Venecia King MD Work Phone: [facility] Start: 04-04-2024 End: 04-04-2024 Patient encounter procedure Venecia King MD Work Phone: [facility] Comment on above: Routine general medi flor examination at [facility] (Primary Dx); Abnormal glucose tolerance test; Benign essential hypertension (CMS/HCC); Medicare annual wellness visit, subsequent; Paroxysmal atrial fibrillation (CMS/HCC); Elevated LDL cholesterol level (CMS/HCC); Estrogen deficiency; Essential hypertension (CMS/HCC); Pulmonary hypertension, unspecified ([facility]/HCC); Atrial septal defect; Nonrheumatic tricuspid valve regurgitation; Biatrial enlargement Start: 04-04-2024 End: 04-04-2024 ambulatory VENECIA KING Not Available Start: 03-07-2024 End: 03-07-2024 ambulatory IGNACIA FELIPE Not Available Start: 03-24-2023 End: 12-25-2023 Assay of hemosiderin, quant Venecia King MD Work Phone: [facility] Start: 03-24-2023 End: 09-09-2024 Patient encounter procedure Ignacia MARQUEZ Work Phone: [facility] Start: 01-01-2023 ambulatory NARENDRANATH LAKSHMIPATHY . Facility: Start: 12-16-2022 End: 12-16-2022 ambulatory NARENDRANATH LAKSHMIPATHY . Facility:[facility] Start: 12-02-2022 End: 12-03-2022 ambulatory NARENDRANATH LAKSHMIPATHY . Facility:[facility] Start: 11-24-2022 End: 12-24-[address] TRUJILLO CHRISTINE Facility:[facility] Start: 10-27-2022 End: 11-21-[address] TRUJILLO CHRISTINE Facility:[facility] Start: 09-24-2022 End: 10-24-[address] TRUJILLO CHRISTINE Facility:[facility] Start: 08-27-2022 End: 09-24-[address] TRUJILLO CHRISTINE Facility:[facility] Start: 07-28-2022 End: 08-27-2022 ambulatory LEONATIFFANY CHRISTINE Facility:[facility] Start: 06-26-2022 End: 07-27-[address] TRUJILLO CHRISTINE Facility:[facility] Start: 05-27-2022 End: 06-25-[address] TRUJILLO CHRISTINE Facility:[facility] Start: 05-22-2022 End: 05-23-2022 ambulatory VENECIA KING Facility:[facility] Start: 04-27-2022 End: 05-26-2022 ambulatory SHAIKH Mina MÉNDEZAngel Facility:[facility] Start: 03-27-2022 End: 04-26-2022 ambulatory SHAIKH Mina MÉNDEZAngel Facility:[facility] Start: 03-18-2022 End: 03-25-2022 ambulatory VENECIA KING Facility:[facility] Start: 02-24-2022 End: 03-26-2022 ambulatory SHAIKH Mina MÉNDEZAngel Facility:[facility] Start: 01-24-2022 End: 02-21-2022 ambulatory SHAIKH Mina MÉNDEZAngel Facility:[facility] Start: 01-08-2022 End: 01-09-2022 ambulatory VENECIA KING Facility:[facility] Start: 02-09-2018 Patient encounter KRISHNA ALLRED Fac ility:[id number] Start: 02-08-2018 Patient encounter KRISHNA ALLRED Fac ility:[id number] Start: 02-08-2018 Patient encounter Facil [id number] Start: 11-27-2017 End: 11-28-2017 Ambulatory DEFAULT PHYSICIAN Facility:[facility] Procedures Date Procedure Procedure Detail Performing Clinician Start: 02-28-2025 Prothrombin time Ignacia MARQUEZ Work Phone: Start: 01-26-2025 Hemoglobin glycosyla brooke a1c Ignacia [...] Treatment Date Care Activity Detail Author Start: 02-28-2026 Screening for malign ant neoplasm of breast Mammogram [facility] Comment on above: Postponed from 04/05 (Patient Refused) Start: 01-26-2026 Screening for malign ant neoplasm of colon Colorectal Cancer Screening [facility] Comment on above: Postponed from 11/06 (Patient Refused) Start: 04-28-2025 Hemoglobin A1c measurement Diabetes: Hemoglobin A1C [facility] Start: 04-05-2025 Screening for malign ant neoplasm of breast Mammogram [facility] Start: 04-04-2025 Medicare Annual Well ness (AWV) Medicare Annual Wellness (AWV) [facility] Start: 03-27-2025 Influenza vaccination Influenza Vacc ine (#1) [facility] Start: 02-28-2025 End: 02-28-2026 Microalbumin/Creatinine panel in random Urine Microalbumin / creatinine, urine ratio Lab Routine Glucose intolerance (impaired glucose tolerance) Expected: 02/28/2025 (Approximate), Expires: 02/28/2026 [facility] Work Phone: Comment on above: Expected: 02/28/2025 (Approximate), Expires: 02/28/2026 Start: 02-28-2025 End: 02-28-2025 Patient encounter procedure [facility] Comment on above: Arrived Start: 01-26-2025 End: 01-26-2025 Patient encounter procedure 01/26/2025 10:00 AM EDT Office Visit [facility] [address] [place] [id number] Ignacia Felipe PA [address] [place] [address] Arrived [facility] Comment on above: Arrived Start: 12-31-2024 Screening for malign ant neoplasm of colon [facility] Start: 10-19-2024 Urine screening for protein Diabetes: Urine Protein Screening [facility] Start: 09-09-2024 End: 09-09-2024 Patient encounter procedure 09/09/2024 11:00 AM EST Office Visit [facility] [address] [place] [address] Ignacia Felipe PA [address] [place] [address] Arrived [facility] Comment on above: Arrived Start: 04-21-2024 Screening for malign ant neoplasm of breast Mammogram [facility] Start: 04-04-2024 End: 04-04-2025 CBC W Auto Differential panel - Blood CBC and differential Lab Routine Medicare annual wellness visit, subsequent Paroxysmal atrial fibrillation (CMS/HCC) Elevated LDL cholesterol level (CMS/HCC) Expected: 04/04/2024 (Approximate), Expires: 04/04/2025 [facility] Work Phone: Comment on above: Expected: 04/04/2024 (Approximate), Expires: 04/04/2025 Start: 04-04-2024 End: 04-04-2025 Comprehensive metabolic 2000 panel - Serum or Plasma Comprehensive metabolic panel Lab Routine Medicare annual wellness visit, subsequent Paroxysmal atrial fibrillation (CMS/HCC) Elevated LDL cholesterol level (CMS/HCC) Expected: 04/04/2024 (Approximate), Expires: 04/04/2025 [facility] Comment on above: Expected: 04/04/2024 (Approximate), Expires: 04/04/2025 Start: 04-04-2024 End: 04-04-2025 DXA Skeletal system Views for bone density DEXA bone density Imaging Routine Estrogen deficiency Expected: 04/04/2024, Expires: 04/04/2025 [facility] Comment on above: Expected: 04/04/2024 , Expires: 04/04/2025 Start: 04-04-2024 End: 04-04-2025 Lipid 1996 panel - Serum or Plasma Lipid panel Lab Routine Medicare annual wellness visit, subsequent Elevated LDL cholesterol level ([facility]/HCC) Expected: 04/04/2024 (Approximate), Expires: 04/04/2025 [facility] Comment on above: Expected: 04/04/2024 (Approximate), Expires: 04/04/2025 Start: 04-04-2024 End: 04-04-2024 Patient encounter procedure 04/04/2024 10:30 AM EDT Office Visit [facility] [address] [facility] [address] [place] [id number] Venecia King MD [address] [facility] [address] [place] [address] Arrived [facility] Comment on above: Arrived Start: 03-27-2024 Influenza vaccination Influenza Vacc ine (#1) [facility] Start: 03-24-2024 Medicare Annual Well ness (AWV) Medicare Annual Wellness (AWV) [facility] Start: 01-20-2024 Hemoglobin A1c measurement Diabetes: Hemoglobin A1C [facility] Start: [birth year]-06-1961 Glaucoma screening Diabetes: R etinopathy Screening [facility] Start: 1950 Screening for malign ant neoplasm of colon [facility] Immunizations Immunization Date Immunization Notes Care Provider Fa cility 07-21-2024 influenza, high dose seasonal, preservative-free Ignacia MARQUEZ Work Phone: [facility] Work Phone: 07-21-2024 influenza virus vacc ine, unspecified formulation Ignacia MARQUEZ Work Phone: [facility] 05-18-2023 Influenza, Seasonal, Quadrivalent, Adjuvanted Venecia King MD Work Phone: [facility] 05-18-2023 influenza virus vacc ine, unspecified formulation Venecia King MD Work Phone: [facility] 06-11-2022 Influenza, Seasonal, Quadrivalent, Adjuvanted Venecia King MD Work Phone: [facility] 05-05-2021 influenza, high dose seasonal, preservative-free Venecia King MD Work Phone: [facility] 05-05-2021 Influenza, High-dose Seasonal, Quadrivalent, Preservative Free Venecia King MD Work Phone: [facility] 05-27-2020 Influenza, Seasonal, Quadrivalent, Adjuvanted Venecia King MD Work Phone: [facility] 05-10-2019 influenza, high dose seasonal, preservative-free Venecia King MD Work Phone: [facility] 05-10-2019 pneumococcal polysaccharide vaccine, 23 valent Venecia King MD Work Phone: [facility] 04-14-2019 pneumococcal polysaccharide vaccine, 23 valent Venecia King MD Work Phone: [facility] 04-14-2019 tetanus toxoid, redu bridgett diphtheria toxoid, and acellular pertussis vaccine, adsorbed Venecia King MD Work Phone: [facility] 03-22-2018 influenza, high dose seasonal, preservative-free Venecia King MD Work Phone: [facility] 03-22-2018 pneumococcal conjuga te vaccine, 13 valent Venecia King MD Work Phone: [facility] 06-03-2017 influenza, high dose seasonal, preservative-free Venecia King MD Work Phone: [facility] 07-08-2016 tetanus toxoid, redu bridgett diphtheria toxoid, and acellular pertussis vaccine, adsorbed Venecia King MD Work Phone: [facility] 05-29-2016 seasonal influenza, intradermal, preservative free Venecia King MD Work Phone: [facility] 05-08-2015 influenza, seasonal, injectable, preservative free Venecia King MD Work Phone: [facility] 10-05-2009 tetanus and diphther ia toxoids, adsorbed, preservative free, for adult use (2 Lf of tetanus toxoid and 2 Lf of diphtheria toxoid) Venecia King MD Work Phone: [facility] Payers Date Payer Category Payer [facility] BCBS [id number] 2016 Medicare [id number] 2016 Unknown 1959 Medicare [id number] 1959 Unknown [id number] 1951 Unknown [id number] 2.16.840.1.931969.3.579. 2.593 1951 Unknown [id number] 2.16.840.1.489271.3.579. 2.593 1951 Unknown [id number] 2.16.840.1.051749.3.579. 2.593 1951 Unknown [id number] 2.16.840.1.550606.3.579. 2.593 1951 Unknown [id number] 2.16.840.1.060308.3.579. 2.593 1951 Unknown [id number] 2.16.840.1.103516.3.579. 2.593 1951 Unknown [id number] 2.16.840.1.272449.3.579. 2.593 1951 Unknown [id number] 2.16.840.1.468284.3.579. 2.593 1951 Unknown [id number] 2.16.840.1.193173.3.579. 2.593 1951 Unknown [id number] 2.16.840.1.863616.3.579. 2.593 1951 Unknown [id number] 2.16.840.1.789414.3.579. 2.593 1951 Unknown [id number] 2.16.840.1.820306.3.579. 2.593 1951 Unknown [id number] 2.16.840.1.426340.3.579. 2.593 1951 Unknown [id number] 2.16.840.1.344010.3.579. 2.593 1951 Unknown [id number] 2.16.840.1.753875.3.579. 2.593 1951 Unknown [id number] 2.16.840.1.194949.3.579. 2.593 1951 Unknown [id number] 2.16.840.1.160919.3.579. 2.593 1951 Unknown [id number] 2.16.840.1.462020.3.579. 2.1259 1951 Unknown [id number] 2.16.840.1.064352.3.579. 2.1259 1951 Unknown [id number] 2.16.840.1.849360.3.579. 2.1259 1951 Unknown [id number] 2.16.840.1.593380.3.579. 2.1259 1951 Unknown [id number] 2.16.840.1.398648.3.579. 2.1259 Medicare [id number] Social History Date Type Detail Facility Start: 03-24-2023 Tobacco smoking stat [facility] Never smoked tobacco [facility] Start: 03-24-2023 Tobacco use and exposure Smokeless tobacco non-user [facility] Start: 04-04-2024 End: 02-28-2025 Alcoholic beverage intake Lifetime non-drinker (finding) [facility] [...] 05-07-2023 Alcohol Comment caffeine: rafal olate, coffee,soda,tea [facility] Start: 1950 Sex assigned at Not on file [facility] Functional Status Date Assessment Result Facility 02-28-2025 Patient Health Quest ionnaire 2 item (PHQ-2) [Reported] [facility] 01-26-2025 Patient Health Quest ionnaire 2 item (PHQ-2) [Reported] [facility] History of Present illness Narrative 02-28-2025 JIMMY Huynh - 02/28/2025 10:30 AM EDT Note Date & Type Note Facility 02-28-2025 History of Presen t illness Narrative Images from the original note were not included. HPI Med Refill Additional comments: Ibuprofen. Would like a script for a walker with a seat. Coagulation Disorder Additional comments: Today 2.3 Last edited by Isadora Deal LPN on 02/28/2025 10:51 AM. Subjective Patient ID: Leslie Lopez is a 74 y.o. female who presents for fibromyalgia. Leslie is present today for follow up fibromyalgia. She was started on Duloxetine at her last o/v and she feels it is helping. Feels that the dosing is good right now. And the pain specialist started her on Tylenol #3. Is getting around and doing more, so her legs aren't swelling as much. Refuses Cologuard testing. Cardiology wanted to place her on a different anticoagulant. States they wanted to do an ablation of her heart. States she didn't feel comfortable proceeding with the ablation or different medication. Goes to the [facility] at [facility] and they manage her Coumadin dosing. Over the past 2 weeks, how often have you been bothered by any of the following problems? Little interest or pleasure in doing things: Not at all (currently on medication) Feeling down, depressed, or hopeless: Not at all (currently on medication) Patient Health Questionnaire-2 Score: 0 Current Outpatient Medications on File Prior to Visit Medication Sig Dispense Refill acetaminophen-codeine (Tylenol w/ Codeine #3) 300-30 MG tablet Take 1 tablet by mouth every 6 (six) hours if needed for severe pain CALCIUM MAGNESIUM ZINC PO Take 1 tablet by mouth Daily carvedilol (Coreg) 12.5 MG tablet TAKE 1 TABLET TWICE DAILY WITH FOOD 200 tablet 3 dilTIAZem CD (Cardizem CD) 240 MG 24 hr capsule TAKE 1 CAPSULE EVERY DAY 90 capsule 0 DULoxetine (Cymbalta) [address] capsule Take 1 capsule (30 mg) by mouth in the morning and 1 capsule (30 mg) before bedtime. Do not crush or chew. 60 capsule 2 furosemide (Lasix) 20 MG tablet TAKE 1 TABLET TWICE DAILY 180 tablet 3 Glucosamine-Chondroitin (OSTEO BI-FLEX REGULAR STRENGTH PO) Take 1 tablet by mouth Daily MAGNESIUM GLYCINATE ADVANCED PO Take 1 tablet [...] NOT CRUSH OR CHEW) 90 tablet 3 pregabalin (Lyrica) 50 MG capsule Take 50 mg by mouth in the morning and 50 mg before bedtime. warfarin (Coumadin) 5 MG tablet TAKE 1 TABLET ONE TIME DAILY, EXCEPT TAKE 2 TABLETS ON SUNDAYS AND WEDNESDAYS 120 tablet 3 [DISCONTINUED] amiodarone (Pacerone) 200 MG tablet Take 200 mg by mouth Daily [DISCONTINUED] furosemide (Lasix) 20 MG tablet TAKE 1 TABLET TWICE DAILY 180 tablet 3 [DISCONTINUED] ibuprofen 800 MG tablet Take 1 tablet (800 mg) by mouth every 8 (eight) hours if needed for moderate pain 90 tablet 0 No current facility-administered medications on file prior [...] KENALOG INJECTION;Disease:RIGHT KNEE SPRAIN Visit Vitals BP 136/88 Pulse 88 Resp 16 Ht 5' 5 Wt 269 lb 12.8 oz SpO2 96% BMI 44.90 kg/m Smoking Status Never BSA 2.37 m Review of Systems Constitutional: Negative for chills, fatigue and fever. Respiratory: Negative for cough, shortness of breath and wheezing. Cardiovascular: Negative for chest pain, palpitations and leg swelling. Gastrointestinal: Negative for abdominal pain, constipation, diarrhea, nausea and vomiting. Musculoskeletal: Positive for arthralgias and gait problem. Skin: Negative for rash. Objective Physical Exam Constitutional: General: She is not in acute distress. Appearance: She is well-developed. She is obese. HENT: Head: Normocephalic and atraumatic. Eyes: General: No scleral icterus. Conjunctiva/sclera: Conjunctivae normal. Cardiovascular: Rate and Rhythm: Normal rate. Rhythm irregularly irregular. Heart sounds: Normal heart sounds. No murmur heard. Pulmonary: Effort: Pulmonary effort is normal. No respiratory distress. Breath sounds: Normal breath sounds. No wheezing, rhonchi or rales. Skin: General: Skin is warm and dry. Neurological: General: No focal deficit present. Mental Status: She is alert and oriented to person, place, and time. Gait: Gait abnormal (Straight cane for ambulation, still with significantly antalgic gait). Psychiatric: Mood and Affect: Mood normal. Behavior: Behavior normal. Assessment/Plan Diagnoses and all orders for this visit: Paroxysmal atrial fibrillation (HCC) - POCT Protime-INR, fingerstick docked device INR 2.3 today. Patient is within therapeutic range. She will continue to follow with Coumadin Clinic at [facility] for medication management and routine monitoring. Fibromyalgia - ibuprofen 800 MG tablet; Take 1 tablet (800 mg) by mouth every 8 (eight) hours if needed for moderate pain Take with food Mood and myalgia improved with Duloxetine. She can continue current dosage and our office will continue to monitor. Receiving Tylenol #3 for pain from Pain Management. She will continue to follow with them. OARRS report generated and reviewed. Glucose intolerance (impaired glucose tolerance) - Microalbumin / creatinine, urine ratio; Future Urine sample obtained for Microalbumin testing. Anticoagulated Continue with current Coumadin dosage. Primary osteoarthritis of both knees Patient has need of a rollator in home to help complete ADL's i.e. walking to toilet, walking to kitchen, walking to bedroom, and has weakness in legs requiring patient to have a seat on the rollator to sit when needed to prevent further falls. Due to current physical limitations, patient cannot safely use a standard cane or walker. Pt is able to safely use a rollator and functional immobility in home would be resolved by the use of a rollator. The patient has mobility limitations that significantly impair their ability to participate in activities of daily living without the risk of fall. The patient would benefit from this rollator to reasonably complete activities of daily living in an acceptable timeframe given current limitations. As the patient is considered a fall risk, the utilization of a rollator would mitigate the risk of morbidity and mortality secondary to the possibility of fall. The patient would benefit from use of a rollator and it would improve functional mobility in regards to the deficit caused by current diagnoses. Patient declines Cologuard testing. States would not do anything even if the testing came back positive. Follow up in about 5 weeks (around 04/05/2025) for Medicare Wellness Visit. documented in this encounter [facility] History of Present illness Narrative 01-26-2025 [...] Sibling Past Medical History: Diagnosis Date A-fib (CMS/[facility]ER[facility]) 2017 Anemia Fibromyalgia History of being hospitalized [...] visit: Age-related osteoporosis without current pathological fracture ([facility]) - denosumab (Prolia) 60 MG/ML solution prefilled [...] unspecified (CMS/HCC) The patient is seeing a biomedical equipment support specialist for this condition, treatment is deferred to [...] of the abdomen, avoiding a 1 inch [place] around the belly button. Patient denies any [...] per week The patient is seeing a biomedical equipment support specialist for this condition, treatment is deferred to that specialist. Correspondence from that specialist and any available testing were reviewed during today's visit. Glucose intolerance Will have patient stop the Metformin at this time. She is starting the Semaglutide and has not perceived benefit from the Metformin. Follow up in about 3 months (around 12/07/2024) for Medication Follow Up. documented in this encounter [facility] Progress note 06-07-2024 Note Date & Type Note Facility 06-07-2024 Note IN Electrophysiology Consult Note IN Cardiology [facility] Reason for visit: Afib HPI: Leslie Lopez is a 73 y.o. year old with past medical history of hypertension, Obesity s/p gastric bypass atrial fibrillation has not been seen by qa analyst in the past. She presented to her PCP who thereafter referred to us for establishing care. Her initial diagnosis of A-fib occurred when she was in [place] and was seen in the hospital with food poisoning and was noted to have an EKG that revealed A-fib. Subsequently she was seen by qa analyst who placed her on Coumadin but cardioversion [...] she has s (more content not included)... [facility] Consultation note 12-02-2022 Note Date & [...] our patients to inform us about any nitv-dax-ttvrzdo medications or herbal remedies/nutritional supplements/alternative remedies. 2. [...] options with their primary care provider. [facility] Evaluation note Note Date & Type Note [...] regurgitation Biatrial enlargement documented in this encounter [facility] Evaluation note Note Date & [...] Primary Routine general medical examination at a [facility] care facility Abnormal glucose tolerance test Impaired [...] glucose tolerance test documented in this encounter [facility] Evaluation note Note Date & [...] knees documented in this encounter [facility] Evaluation note Note Date & Type [...] defect Nonrheumatic tricuspid valve regurgitation Biatrial enlargement Paroxysmal atrial fibrillation (HCC)- Primary Atrial fibrillation Fibromyalgia Unspecified myalgia and myositis Glucose intolerance (impaired glucose tolerance) Impaired glucose tolerance test Anticoagulated Encounter for long-term (current) use of anticoagulants Primary osteoarthritis of both knees documented in this encounter [facility] History of Present illness Narrative Venecia [...] Venecia King MD as PCP - O Ruba Kebede Thursday, NESSA as Licensed Practical Nurse (Family [...] panel Lipid panel Atrial septal defect See Corporation Secretary in end of March Nonrheumatic tricuspid valve [...] fibrillation Associated Problem(s): Atrial septal defect See Corporation Secretary in end march Associated Problem(s): Medicare annual [...] section and content) DATE CREATED AUTHOR 01/14/2018 [facility] DATE CREATED AUTHOR AUTHOR'S ORGANIZ ATION 02/11/2018 [facility] DATE CREATED AUTHOR AUTHOR'S ORGANIZ ATION 02/11/2018 [facility] DATE CREATED AUTHOR AUTHOR'S ORGANIZ ATION 12/18/2021 [facility] dical Specialist DATE CREATED AUTHOR AUTHOR'S ORGANIZ ATION 01/02/2023 [facility] DATE CREATED AUTHOR AUTHOR'S ORGANIZ ATION 06/19/2024 [facility] DATE CREATED AUTHOR AUTHOR'S ORGANIZ ATION 03/03/2025 [facility] dical Specialists [facility] DATE CREATED AUTHOR AUTHOR'S ORGANIZ ATION 03/04/2025 [facility] Diagnostic s Care Teams (unrecognized sec tion and content) Sanitation Engineer Relationship Specialty Start Date End Date Venecia King MD [address] [facility] [address] [place] [address] PCP - ACO Reach 12/18/22 Venecia King MD [address] [facility] [address] [place] [address] PCP - General Family Medicine 12/02/22Thursday, NESSA Kebede [address] [place] [address] Licensed Practical Nurse Family Medicine 10/12/23 Sanitation Engineer Relationship Specialty Start Date End Date Venecia King MD [address] [facility] [address] [place] [address] PCP - ACO Reach 12/18/22 Venecia King MD [address] [facility] [address] [place] [address] PCP - General Family Medicine 12/02/22Thursday, Yandy, CHIROPRACTOR SOLE PRACTITIONER [address] [place] [address] Licensed Practical Nurse Family Medicine 10/12/23 Sanitation Engineer Relationship Specialty Start Date End Date Venecia King MD [address] [facility] [address] [place] [address] PCP - ACO Reach 12/18/22 Venecia King MD [address] [facility] [address] [place] [address] PCP - General Family Medicine 12/02/22Thursday, Yandy, CHIROPRACTOR SOLE PRACTITIONER [address] [place] [address] Licensed Practical Nurse Family Medicine 10/12/23 Sanitation Engineer Relationship Specialty Start Date End Date Venecia King MD [address] [facility] [address] [place] [address] PCP - ACO Reach 12/18/22 Venecia King MD [address] [facility] [address] [place] [address] PCP - General Family Medicine 12/02/22 Estefani Osman, ALIA Licensed Practical Nurse Family Medicine 09/02/24 Sanitation Engineer Relationship Specialty Start Date End Date Venecia King MD [address] [facility] [address] [place] [address] PCP - ACO Reach 12/18/22 Venecia King MD [address] [facility] [address] [place] [address] PCP - General Family Medicine 12/02/22 Estefani Osman, RN Licensed Practical Nurse Family Medicine 09/02/24 Sanitation Engineer Relationship Specialty Start Date End Date Venecia King MD [address] [facility] [address] [place] [address] PCP - ACO Reach 12/18/22 Venecia King MD [address] [facility] [address] [place] [address] PCP - General Family Medicine 12/02/22 Estefani Osman, RN Licensed Practical Nurse Family Medicine 09/02/24 Sanitation Engineer Relationship Specialty Start Date End Date Venecia King MD [address] [facility] [address] [place] [address] PCP - ACO Reach 12/18/22 Venecia King MD [address] [facility] [address] [place] [address] PCP - General Family Medicine 12/02/22 Celeste Chung LPN [address] [facility] [address] [place] [address] 10/14/24 Sanitation Engineer Relationship Specialty Start Date End Date Venecia King MD [address] [facility] [address] [place] [address] PCP - ACO Reach 12/18/22 Venecia King MD [address] [facility] [address] [place] [address] PCP - General Family Medicine 12/02/22 Celeste Chung LPN [address] [facility] [address] [place] [address] 10/14/24 Sanitation Engineer Relationship Specialty Start Date End Date Venecia King MD [address] [facility] [address] [place] [address] PCP - ACO Reach 12/18/22 Venecia King MD [address] [facility] [address] [place] [address] PCP - General Family Medicine 12/02/22 Celeste Chung LPN [address] [facility] [address] [place] [address] 10/14/24 Reason for Visit (unrecogniz ed section [...] Fibromyalgia Pt wants to discuss pain today. Reason Comments Med Refill Ibuprofen. Would lik e a script for a walker with a seat. Coagulation Disorder Today 2.3 FOR RECORDS PERTAINING TO PATIENTS WHO ARE [...] ON THE PRIMARY CLINICAL RECORDS. [facility]. provides no warranty or guarantee of the accuracy or completeness of information in this document.
--- NOTE | 2025-03-15 13:11 | PM.CN ---
Consult Note: HPI Data of Consult Patient: known to practice within the last 3 years Requesting Physician: Perla Oreilly NP Primary Care Provider: CASSANDRA KING Consult Narrative Reason for consult: knee pain and FM Narrative: Leslie Mathis a pleasant 74 year old female presents for evaluation and management of chronic bilateral knee and diffuse fibromyalgia. Today rating pain 5/10 in bilateral knees. Patient is on warfarin and is advised not to take NSAIDs, however she continues to use motrin PRN. has been utilizing lyrica 50mg BID, tylenol #3 BID PRN moderate to severe pain with benefit denies side effects. notes improvement in pain from last visit. cc:: CC: Perla Oreilly NP Review of Systems ROS Status of ROS 10 or more systems reviewed and unremarkable except as noted in history and below Musculoskeletal Reports: joint pain PFSH PFSH Medical History (Updated 03/15/25 @ 13:13 by Perla Oreilly NP) Osteoarthritis ?M19.90 - Unspecified osteoarthritis, unspecified site (ICD-10) Anemia ?D64.9 - Anemia, unspecified (ICD-10) Active asthma ?J45.909 - Unspecified asthma, uncomplicated (ICD-10) Heart valve disease ?I38 - Endocarditis, valve unspecified (ICD-10) Hypertension ?I10 - Essential (primary) hypertension (ICD-10) Irregular heart beat ?I49.9 - Cardiac arrhythmia, unspecified (ICD-10) Surgical History S/P gastric bypass ?Z98.84 - Bariatric surgery status (ICD-10) S/P cholecystectomy ?Z90.49 - Acquired absence of other specified parts of digestive tract (ICD-10) H/O: hysterectomy ?Z90.710 - Acquired absence of both cervix and uterus (ICD-10) Family History Other Fibromyalgia Social History Smoking status: Never smoker Meds Home Medications and Allergies Home Medications ?Medication ?Instructions ?Recorded ?Confirmed ?Type ascorbic acid (vitamin C) 500 mg 500 mg PO DAILY 01/01/23 08/02/24 History tablet calcium 100 mg capsule mg PO 01/01/23 History carvedilol 12.5 mg tablet 12.5 mg PO BID 01/01/23 08/02/24 History diltiazem HCl 240 mg capsule,24 240 mg PO DAILY 01/01/23 08/02/24 History hr,extended release furosemide 20 mg tablet (Lasix) 20 mg PO BID 01/01/23 08/02/24 History ibuprofen 800 mg tablet 800 mg PO QDAY 01/01/23 08/02/24 History metaxalone 800 mg tablet 800 mg PO TID 01/01/23 08/02/24 History warfarin 5 mg tablet 5 mg PO DAILY 01/01/23 08/02/24 History duloxetine 30 mg capsule,delayed 30 mg PO .AM 07/16/23 08/02/24 History release (Cymbalta) pregabalin 50 mg capsule (Lyrica) 50 mg PO BID #60 caps 04/14/24 08/02/24 Rx acetaminophen 300 mg-codeine 30 mg 1 tab PO DAILY PRN pain #7 tabs 06/29/24 08/02/24 Rx tablet multivitamin 1 tab PO DAILY 02/02/25 02/02/25 History paroxetine HCl 20 mg tablet mg PO 02/02/25 History potassium chloride 10 mEq meq PO 02/02/25 History tablet,extended release(part/cryst) acetaminophen 300 mg-codeine 30 mg 1 tab PO BID PRN pain #60 tabs 02/09/25 Rx tablet Allergies Allergy/AdvReac Type Severity Reaction Status Date / Time Penicillins Allergy resp Verified 07/12/24 08:28 distress Exam Narrative Exam Narrative: generalized myofascial pain on exam Constitutional Documenting provider has reviewed patient's vital signs: yes Common normals: no apparent distress, oriented x3, healthy appearing, alert and well nourished General appearance: cooperative [facility] Common normals: normocephalic, hearing grossly normal bilaterally and moist oral mucous membranes Head and scalp: normocephalic Eye Common normals: PERRL Pupil: PERRL Neck & C-Spine Common normals: full ROM General: normal visual inspection Chest Common normals: inspection of chest normal Respiratory Common normals: normal respiratory effort, no retractions and no use of accessory muscles Back & Pelvis Thoracic spine/upper back: normal to inspection and thoracic ROM normal Lumbar spine/lower back: normal to inspection, pain with ROM and straight leg raise negative bilaterally Sacroiliac joints: SI joints normal Other: positive bilateral facet loading Extremity Common normals: no calf tenderness and no pedal edema Right lower extremity: knee joint (enlarged, pain with weight bearing, limited ROM) Left lower extremity: knee joint (enlarged, pain with weight bearing, limited ROM) Neuro Common normals: oriented x3 Sensorium/orientation: alert Motor exam: strength 5/5 throughout and no movement abnormalities noted Psych Common normals: mental status grossly normal, thought process normal, cooperative, affect normal, speech normal and activity/motor behavior normal Speech: normal speech Thought process: normal thought process Results Additional Findings Additional findings: If on a controlled substance or opioids, I have checked an [place]AR[place] report on this patient and there are no aberrancies noted in the prescribing history.??If on a controlled substance or opioid a drug screen was completed and reviewed within the last year, and if there has not been a drug screen completed we ordered one today to monitor higher risk, state monitored pain medication use. As part of providing excellent, safe, comprehensive care, the following was completed at our patient's visit: 1. A medication reconciliation and review to ensure accurate knowledge of current/active medications, including asking our patients to inform us about any nsji-xxc-skbpmpy medications or herbal remedies/nutritional supplements/alternative remedies. 2. A review to specifically ensure our patients have had annual screening for screening for depression, screening for tobacco use, and screening for unhealthy alcohol use. For concerning screenings had a discussion with the patient, provided patient education, and recommended follow-up with primary care provider when appropriate. If patient noted with a risk of falling, they received education on strength, gait, and balance training to prevent future risk of falling. Portions of this note may have been carried over from the previous visit and updated as appropriate. Please note this office utilizes paper charting in addition to the electronic medical record. A list of current medications, vitals, and PMH is available there as the clinical staff outside of myself do not have access to [facility] charting during the clinic day operations. As part of providing quality comprehensive care the current medications, vitals, and PMH were reviewed in the paper chart. Assessment and Plan Assessment and Plan (1) Knee osteoarthritis: (2) Fibromyalgia: (3) Chronic pain syndrome: (4) Generalized OA: (5) Muscle spasm: (6) Chronic use of opiate drug for therapeutic purpose: Plan refill and continue tylenol #3 BID PRN moderate to severe pain increase duloxetine 30mg am and 60mg hs risks vs benefits reviewed continue HEP as tolerated f/u 8 weeks to evaluate medication regimen
== END 2025-03-15 12:42 | disposition home or self-care (01) ==
LOC: PM 12:42
PROVIDERS: PCP Family Medicine; Visit Provider Nurse Practitioner
DX: M17.0 Bilateral primary osteoarthritis of knee (principal); M79.7 Fibromyalgia; G89.4 Chronic pain syndrome; M62.838 Other muscle spasm; Z79.891 Long term (current) use of opiate analgesic
CPT/HCPCS: G0463

== ENCOUNTER 2025-03-27 00:38 | Outpatient (RCR) | payer MEDICARE, BC, SELFPAY | END 2025-04-25 15:43 | disposition home or self-care (01) | LOC: MM 00:38 | PROVIDERS: PCP Family Medicine; Visit Provider Internal Medicine | DX: Z51.81 Encounter for therapeutic drug level monitoring (principal); Z79.01 Long term (current) use of anticoagulants; I48.20 Chronic atrial fibrillation, unspecified | CPT/HCPCS: 85610; G0463 ==

== ENCOUNTER 2025-04-26 01:42 | Outpatient (RCR) | payer MEDICARE, BC, SELFPAY | END 2025-05-26 23:59 | disposition home or self-care (01) | LOC: MM 01:42 | PROVIDERS: PCP Family Medicine; Visit Provider Internal Medicine | DX: I48.20 Chronic atrial fibrillation, unspecified (principal) | CPT/HCPCS: 85610; G0463 ==

== ENCOUNTER 2025-05-18 12:41 | Outpatient (OUT) | payer MEDICARE, BC, SELFPAY ==
--- OUTSIDE RECORDS SUMMARY | 2025-05-11 14:30 | XMS_ITS | Encounter Summary ---
Author Organization [facility] Address [address] [facility] [place] [address] Care Team Providers Care Humid System Operator Name Role Phone Venecia Vyas MD Unavailable Venecia Vyas MD Primary Care Provider [phone] Celeste Chung LPN Unavailable Reason for Visit * ReasonCommentsMouth LesionsChapped lips Encounter Details DateTypeDepartmentCare Team (Latest Contact Info)Oovoilavezf27/16/2025 2:30 PM EDTOffice Visit [facility] [address] [place] [address] Venecia Vyas MD [address] [facility] [address] [place] [address] Acute eczema (Primary Dx) Social History Tobacco UseTypesPacks/DayYears UsedDateSmoking Tobacco: NeverSmokeless Tobacco: NeverAlcohol UseStandard Drinks/WeekCommentsNever0 (1 standard drink = 0.6 oz pure alcohol)caffeine: chocolate, coffee,soda,[id number] Health LiteracyAnswerDate RecordedHow often do you need to have someone help you when you read instructions, pamphlets, or other written material from your doctor or pharmacy? Never03/16/2024Humiliation, Afraid, Rape, and Kick questionnaireAnswerDate RecordedWithin the last year, have you been afraid of your partner or ex-partner?No10/14/2023Within the last year, have you been humiliated or emotionally abused in other ways by your partner or ex-partner?No10/14/2023 Within the last year, have you been kicked, hit, slapped, or otherwise physically hurt by your partner or ex-partner?No10/14/2023Within the last year, have you been raped or forced to have any kind of sexual activity by your part ner or ex-partner?No10/14/2023Social Connection and Isolation PanelAnswerDate RecordedIn a typical week, how many times do you talk on the phone with family, friends, or neighbors?More than three times a week10/14/2023How often do you get together with friends or relatives?Three times a week10/14/2023How often do you attend hoahaoism or faith services?1 to 4 times per year10/14/2023o you belong to any clubs or organizations such as hoahaoism groups, unions, fraternal or athletic groups, or school groups?No10/14/2023How often do you attend meetings of the clubs or organizations you belong to?Never10/14/2023re you , , , , never , or living with a partner?Never wwskggw1110/14/2023UDIT-CAnswerDate RecordedQ1: How often do you have a drink containing alcohol?Never10/14/2023Q2: How many drinks containing alcohol do you have on a typical day when you are drinking?Patient does not drink10/14/2023Q3: How often do you have six or more drinks on one occasion?Never10/14/2023Overall Financial Resource Strain (CARDIA)AnswerDate RecordedHow hard is it for you to pay for the very basics like food, housing, medical care, and heating?Not hard at all10/14/2023HQ-2AnswerDate RecordedPatient Health Questionnaire-2 Score0 05/11/2025[facility] [place] of Occupational Health - Occupational Stress QuestionnaireAnswerDate RecordedDo you feel stress - tense, restless, nervous, or anxious, or unable to sleep at night because yourmind is troubled all the time - these days?Not at all10/14/2023Exercise Vital SignAnswerDate RecordedOn average, how many days per week do you engage in moderate to strenuous exercise (like a brisk walk)?0 days10/14/2023On average, how many minutes do you engage in exercise at this level?0 min10/14/2023Hunger Vital SignAnswerDate Recorded Within the past 12 months, you worried that your food would run out before you got the money to buymore.Never true10/14/2023Within the past 12 months, the food you bought just didn't last and you didn't have money to get more.Never true 10/14/2023RAPARE - TransportationAnswerDate RecordedIn the past 12 months, has lack of transportation kept you from medical appointments or from getting medications?No10/14/2023In the past 12 months, has lack of transportation kept you from meetings, work, or from getting things needed for daily living?No 10/14/2023Housing Stability Vital SignAnswerDate RecordedIn the last 12 months, was there a time when you were not able to pay the mortgage or rent on time?No 10/14/2023In the last 12 months, how many places have you lived?In the last 12 months, was there a time when you did not have a steady place to sleep or slept in [facility] (including now)?No10/14/2023CommentsUnknown Sex and Gender InformationValueDate RecordedSex Assigned at BirthNot on file Legal YqcDbalnr33/15/2023 6:42 PM EDTGender IdentityNot on fileSexual OrientationNot on filedocumented as of this encounter Last Filed Vital Signs Vital SignReadingTime TakenCommentsBlood Jbaucxpd876/7805/11/2025 2:30 PM EDT Vouzk372605/11/2025 2:30 PM EDTTemperature--Respiratory Rate--Oxygen Gajcqtvlkk64% 05/11/2025 2:30 PM EDTInhaled Oxygen Concentration--Ibsvik529 kg (270 lb) 05/11/2025 2:30 PM OYFCflfkt678.1 cm (5' 5 )05/11/2025 2:30 PM EDTBody Mass Index44.9305/11/2025 2:30 PM EDTdocumented in this encounter Functional Status * Over the past 2 weeks, how often have you been bothered by any of the following problems?QuestionAnswerDate of AssessmentAuthorLittle interest or pleasure in doing thingsNot at all05/11/2025 12:01 PM Estefani Aleman MA Feeling down, depressed, or hopelessNot at all05/11/2025 12:01 PM Estefani Aleman MAPatient Health Questionnaire-2 Gsbgi797 12:01 PM Estefani Aleman MA documented as of this encounter Progress Notes * Venecia Vyas MD - 05/11/2025 2:54 PM EDTAssociated Problem(s): Acute eczema Add over the counter HC I discussed with patient that while on prednisone, do not take any NSAIDs like Ibuprofen, Naprosyn,Alleve or motrin. Watch for any side effects like abdominal pain and nausea. Take the prednisone with food or milk. Prednisone may increase appetite. While on prednisone, watch for any sugar elevations. * Venecia Vyas MD - 05/11/2025 2:30 PM EDT Images from the original note were not included. Attached media from the original note were not included. HPI Mouth Lesions Additional comments: Chapped lips Last edited by Estefani Dacosta MA on 05/11/2025 12:01 PM. Subjective Patient ID: Leslie Mathis is a 74 y.o. female who presents for Mouth Lesions (Chapped lips). This started Thursday morning with chapped lips and swollen, she states it tesfaye and itches some, she states she had the same thing last year Pt has been taking vit c 1000mg daily, she has not tried anything new , no foods or lotions Mouth Lesions Associated symptoms include mouth sores. Pertinent negatives include no fever. Over the past 2 weeks, how often have you been bothered by any of the following problems? Little interest or pleasure in doing things: Not at all Feeling down, depressed, or hopeless: Not at all Patient Health Questionnaire-2 Score: 0 Current Outpatient Medications on File Prior to Visit Medication Sig Dispense Refill acetaminophen-codeine (Tylenol w/ Codeine #3) 300-30 MG tablet Take 1 tablet by mouth every 6 (six)hours if needed for severe pain CALCIUM MAGNESIUM ZINC PO Take 1 tablet by mouth Daily carvedilol (Coreg) 12.5 MG tablet TAKE 1 TABLET TWICE DAILY WITH FOOD 180 tablet 3 dilTIAZem CD (Cardizem CD) 240 MG 24 hr capsule TAKE 1 CAPSULE EVERY DAY 90 capsule 3 DULoxetine (Cymbalta) [address] capsule TAKE 1 CAPSULE IN THE MORNING AND 1 CAPSULE BEFORE BEDTIME. DO NOT CRUSH OR CHEW. 200 capsule 3 ferrous sulfate 324 (65 Fe) MG EC tablet Take 1 tablet (324 mg) by mouth 3 (three) times a week Do not crush, chew, or split. 12 tablet 5 fexofenadine (Keren) 60 MG tablet Take 60 mg by mouth in the morning and 60 mg before bedtime. furosemide (Lasix) 20 MG tablet TAKE 1 TABLET TWICE DAILY 180 tablet 3 ibuprofen 800 MG tablet Take 1 tablet (800 mg) by mouth every 8 (eight) hours if needed for moderate pain Take with food 90 tablet 5 MAGNESIUM GLYCINATE ADVANCED PO Take 1 tablet [...] morning and 50 mg before bedtime. [DISCONTINUED] warfarin (Coumadin) 5 MG tablet TAKE 1 TABLET ONE TIME DAILY, EXCEPT TAKE 2 TABLETS ON SUNDAYS AND WEDNESDAYS 120 tablet 3 No current facility-administered medications on file prior [...] Past Medical History: Diagnosis Date A-fib (HCC) 2018 Anemia Fibromyalgia History of being hospitalized 11/2017 [...] KENALOG INJECTION;Disease:RIGHT KNEE SPRAIN Visit Vitals BP 114/78 Pulse 80 Ht 5' 5 Wt 270 lb SpO2 96% BMI 44.93 kg/m?? Smoking Status Never BSA 2.37 m?? Review of Systems Constitutional: Negative for chills and fever. HENT: Positive for mouth sores. Objective Physical Exam Constitutional: Appearance: Normal appearance. Neurological: Mental Status: She is alert. Assessment/Plan Problem List Items Addressed This Visit Acute eczema - Primary Add over the counter HC I discussed with patient that while on prednisone, do not take any NSAIDs like Ibuprofen, Naprosyn,Alleve or motrin. Watch for any side effects like abdominal pain and nausea. Take the prednisone with food or milk. Prednisone may increase appetite. While on prednisone, watch for any sugar elevations. Relevant Medications predniSONE (Deltasone) 10 MG tablet No follow-ups on file. documented in this encounter Plan of Treatment Not on file documented as of this encounter Visit Diagnoses Diagnosis Acute eczema- Primary Contact dermatitis and other eczema, due to unspecified cause documented in this encounter Additional Health Concerns AssessmentNoted TimePHQ-9 Depression Total Score: 10:00 AM EDTA fall risk assessment has been completed for the eergjvm3710/14/2023 9:55 AM EDT documented as of this encounter Care Teams Team MemberRelationshipSpecialtyStart DateEnd Date Venecia Vyas MD [address] [facility] [address] [place] [address] PCP - ACO Reach12/18/22 Venecia Vyas MD [address] [facility] [address] [place] [address] PCP - GeneralFamily Medicine12/02/22 Celeste Chung LPN [address] [place] [address] 10/14/24documented as of this encounter
--- OUTSIDE RECORDS SUMMARY | 2025-05-18 12:45 | XMS_ITS | Encounter Summary ---
Author Organization [facility] Address [address] [facility] [place] [address] Care Team Providers Care Silver Chaser Name Role Phone Venecia Colon MD Unavailable Venecia Colon MD Primary Care Provider [phone] Celeste Chung LPN Unavailable Reason for Visit * ReasonOnset DateCommentschapped lips05/09/2025 Encounter Details DateTypeDepartmentCare Team (Latest Contact Info)Oewoyinktzo14/14/2025Telephone [facility] [place] [facility] [address] [place] [address] Venecia Colon MD [address] [address] [place], [place] [address] chapped lips Social History Tobacco UseTypesPacks/DayYears UsedDateSmoking Tobacco: NeverSmokeless Tobacco: NeverAlcohol UseStandard Drinks/WeekCommentsNever0 (1 standard drink = 0.6 oz pure alcohol)caffeine: chocolate, coffee,soda,[id number] Health LiteracyAnswerDate RecordedHow often do you need [...] times a week10/14/2023How often do you attend scientologist or church services?1 to 4 times per year10/14/2023o you belong to any clubs or organizations such as scientologist groups, unions, fraternal or athletic groups, or school groups?No10/14/2023How often do you attend meetings of the clubs or organizations you belong to?Never10/14/2023re you , , , , never , or living with a partner?Never zenrukp0910/14/2023UDIT-CAnswerDate RecordedQ1: How often do you have a [...] hard at all10/14/2023HQ-2AnswerDate RecordedPatient Health Questionnaire-2 Score0 04/17/2025[facility] [place] of Occupational Health - Occupational Stress QuestionnaireAnswerDate [...] steady place to sleep or slept in [facility] (including now)?No10/14/2023CommentsUnknown Sex and Gender InformationValueDate RecordedSex Assigned at BirthNot on file Legal VhmIyxgbz00/15/2023 6:42 PM EDTGender IdentityNot on fileSexual OrientationNot on filedocumented as of this encounter Miscellaneous Notes * Telephone Encounter - Kylah Stinson - 05/09/2025 3:06 PM EDT Scheduled * Telephone Encounter - Mariaa White LPN - 05/09/2025 11:04 AM EDT Can you please call pt and advise her dr colon would like her to have an appt * Telephone Encounter - Mariaa White LPN - 05/09/2025 9:05 AM EDT Pt called states she had terrible chapped lips last year and discussed at one of her visits was advised if it continued there was something ( a cream she thought) that could be sent in to use, pt is requesting rx be sent to [facility] to see if it helps her lips documented in this encounter Plan of Treatment Not on file documented as of this encounter Visit Diagnoses Not on filedocumented in this encounter Additional Health Concerns AssessmentNoted TimePHQ-9 Depression Total Score: 10:00 AM EDTA fall risk assessment has been completed for the hrvwbwb5610/14/2023 9:55 AM EDT documented as of this encounter Care Teams Team MemberRelationshipSpecialtyStart DateEnd Date Venecia Colon MD [address] [facility] [address] [place] [address] PCP - ACO Reach12/18/22 Venecia Colon MD [address] [facility] [address] [place] [address] PCP - GeneralFamily Medicine12/02/22 Celeste Chung LPN [address] [facility] [address] [place] [address] 10/14/24documented as of this encounter
--- OUTSIDE RECORDS SUMMARY | 2025-05-18 12:45 | XMS_ITS | Encounter Summary ---
Author Organization [facility] Address [address] [place] [address] Care Team Providers Care Product Sales Engineer Name Role Phone Venecia Vyas MD Unavailable Venecia Vyas MD Primary Care Provider [phone] Celeste Chung LPN Unavailable Encounter Details DateTypeDepartmentCare Team (Latest Contact Info)Pbbkmfsbzoo36/16/2025Travel Social History Tobacco UseTypesPacks/DayYears UsedDateSmoking Tobacco: NeverSmokeless Tobacco: NeverAlcohol UseStandard Drinks/WeekCommentsNever0 (1 standard drink = 0.6 oz pure alcohol)caffeine: chocolate, coffee,soda,[id number] Health LiteracyAnswerDate RecordedHow often do you need [...] times a week10/14/2023How often do you attend congregation or quaker services?1 to 4 times per year10/14/2023o you belong to any clubs or organizations such as congregation groups, unions, fraternal or athletic groups, or school groups?No10/14/2023How often do you attend meetings of the clubs or organizations you belong to?Never10/14/2023re you , , , , never , or living with a partner?Never dsqjuwq0210/14/2023UDIT-CAnswerDate RecordedQ1: How often do you have a [...] hard at all10/14/2023HQ-2AnswerDate RecordedPatient Health Questionnaire-2 Score0 05/11/2025[facility] [place] of Occupational Health - Occupational Stress QuestionnaireAnswerDate [...] steady place to sleep or slept in ashelter (including now)?No10/14/2023CommentsUnknown Sex and Gender InformationValueDate RecordedSex Assigned at BirthNot on file Legal JicYcezkb54/15/2023 6:42 PM EDTGender IdentityNot on fileSexual OrientationNot on filedocumented as of this encounter Functional Status * Over the past 2 weeks, how often have you been bothered by any of the following problems?QuestionAnswerDate of AssessmentAuthorLittle interest or pleasure in doing thingsNot at all05/11/2025 12:01 PM Estefani Aleman MA Feeling down, depressed, or hopelessNot at all05/11/2025 12:01 PM Estefani Aleman MAPatient Health Questionnaire-2 Hmyty951 12:01 PM Estefani Aleman MA documented as of this encounter Plan of Treatment Not on file documented as of this encounter Visit Diagnoses Not on filedocumented in this encounter Additional Health Concerns AssessmentNoted TimePHQ-9 Depression Total Score: 10:00 AM EDTA fall risk assessment has been completed for the rypbygc0110/14/2023 9:55 AM EDT documented as of this encounter Care Teams Team MemberRelationshipSpecialtyStart DateEnd Date Venecia Vyas MD [address] [address] PCP - ACO Reach12/18/22 Venecia Vyas MD [address] [address] PCP - GeneralFamily Medicine12/02/22 Celeste Chung LPN [address] [address] 10/14/24documented as of this encounter
--- OUTSIDE RECORDS SUMMARY | 2025-05-18 12:45 | XMS_ITS | Clinical Summary ---
Author Organization [facility] Address [address] [place] [address] Care Team Providers Care Probation Supervisor Name Role Phone Venecia Vyas MD Primary Care Provider [phone] Allergies Active AllergyReactionsCriticalityNoted LqrfLpnqbrryGnmlvvwxshNhilqub70/12/2024 Medications MedicationSigDispense QuantityRefillsLast FilledStart DateEnd DateStatus carvedilol (Coreg) 12.5 mg tablet Take 1 tablet by mouth with breakfast and with evening meal.06/06/2024ctive dilTIAZem CD (Cardizem CD) 240 mg 24 hr capsule Take 1 capsule by mouth in the morning.04/06/2024ctive furosemide (Lasix) 20 mg tablet Take 20 mg by mouth twice a day.05/09/2024ctive metaxalone (Skelaxin) 800 mg tablet Take 800 mg by mouth if needed for muscle spasms.Active metFORMIN (Glucophage) 500 mg tablet Take 500 mg by mouth with breakfast.03/23/2024ctive PARoxetine (Paxil) 20 mg tablet Take 20 mg by mouth.11/10/2023ctive potassium chloride CR (Klor-Con M10) 10 mEq ER tablet Take 10 mEq by mouth in the morning.03/07/2024ctive pregabalin (Lyrica) 50 mg capsule Take 50 mg by mouth in the morning and at bedtime.05/12/2024ctive warfarin (Coumadin) 5 mg tablet TAKE 1 TABLET ONE TIME DAILY, EXCEPT TAKE 2 TABLETS ON SUNDAYS AND Wednesdays10/02/2023ctive rivaroxaban (Xarelto) 20 mg tablet Indications:PAF (paroxysmal atrial fibrillation) (CMS/HCC)Take 1 tablet (20 mg) by mouth daily with evening meal. Take with food. 90 tablet ctive amiodarone (Pacerone) 200 mg tablet Indications:PAF (paroxysmal atrial fibrillation) (CMS/HCC)Take 2 tablets (400 mg) by mouth two times daily for 14 days, THEN 1 tablet (200 mg) in the morning. 146 tablet 06/07/2024ctive Active Problems ProblemNoted DateDiagnosed DatePAF (paroxysmal atrial fibrillation)06/07/2024 Atrial septal lmvbtk5804/04/2024 Overview (06/07/2024): Last Assessment & Plan: See Checker In in end of March Nonrheumatic tricuspid valve kfczuqjiaaapd08/09/2024ody mass index (BMI) 40.0- 44.9, adult03/07/2024yspnea on gvetdgxb81/12/2024Elevated LDL cholesterol level 03/07/2024Localized swelling of both lower legs03/07/2024Neoplasm of uncertain behavior of skin of hand03/07/2024Other urypwyscaqcaq66/12/2024reast screening 03/24/2023 Overview (03/22/2024): Last Assessment & Plan: Mammo ordered Adjustment disorder in qrvtcotik18/31/2023sthmatic bmsuidxryw47/31/2023trial bjtlgpuuknvw05/31/2023 Overview (03/22/2024): Last Assessment & Plan: Watch for bleeding or bruising in bowel or urine. Avoid vitamin K products and supplements. Decreased estrogen level02/23/2023epressive hnjoeryd23/31/2023Essential gakutclhfloh04/31/2023 Overview (03/22/2024): Last Assessment & Plan: Our specific goals, for your hypertension, is to keep your blood pressure less than 140/90, and theimportance of weight control. We made recommendations on [...] taking them as prescribed. DASH diet handouts Uecefemtwbao59/31/2023lucose intolerance (impaired glucose tolerance)02/23/2023 Overview (03/22/2024): Last Assessment & Plan: No Tobacco use Follow ADA 1800 diet low carbohydrate Continue Med Compliance Goal LDL less than 100Goal BP 130/80 Goal HgbA1c < 7.0% Monitor Feet, monitor for infection Needs Exercise Yearly eye exams Prior to your visit today we reviewed your chart and outlined testing and treatment needed foryour care. Reviewed poissble complications of diabetes including, loss of vision, kidney failure and increased risk of heart attacks and stroke. We made recommendations on how to control your blood sugars, and minimize your risk of these complications. We discussed your current barriers to a healthy living and importance of healthy diet and exercise. Vctcyzfrhkpyuk01/31/2023 Overview (03/22/2024): Last Assessment & Plan: Declines Lipid lowering agent Iron deficiency anemia due to chronic blood loss02/23/2023Left atrial dilatation 02/23/2023Morbid uxqtnll1602/23/2023 Overview (03/22/2024): Last Assessment & Plan: Weight loss encouraged Ohhdvnf8802/23/2023Obstructive sleep apnea /31/2023Osteoarthritis of both knees02/23/2023Other osteoporosis without current pathological fracture 02/23/2023rimary gytyzmebxmcelo03/31/2023Tinnitus of both ears02/23/2023 Family History Medical HistoryRelationNameCommentsNo Known ProblemsFatherNo Known Problems MotherRelationNameStatusCommentsFatherMother Social History Tobacco UseTypesPacks/DayYears UsedDateSmoking Tobacco: NeverSmokeless Tobacco: NeverAlcohol UseStandard Drinks/WeekCommentsNot Currently0 (1 standard drink = 0.6 oz pure alcohol)CommentsUnknownSex and Gender InformationValueDate RecordedSex Assigned at BirthNot on fileLegal JptGcovrv86/29/2022 10:04 PM EDT Gender IdentityNot on fileSexual OrientationNot on file Last Filed Vital Signs Vital SignReadingTime TakenCommentsBlood Whtxugcu614/9806/07/2024 3:06 PM EST Whtta699106/07/2024 3:06 PM ESTTemperature--Respiratory Rate--Oxygen Nonngjlmeh22% 06/07/2024 3:06 PM ESTInhaled Oxygen Concentration--[place]286 kg (265 lb) 06/07/2024 3:06 PM GEPVovmzg238.1 cm (5' 5 )06/07/2024 3:06 PM ESTBody Mass Index44. 3:06 PM EST Plan of Treatment Health MaintenanceDue DateLast DoneCommentsCT Tebtkumbscfh54/13/1952Colonoscopy 2Colorectal Cancer Mlhuudgzt69/13/1952FIT-DNA1951FIT1950 FOBT1950Medicare Annual Wellness (AWV)11/07/19515305Xbebbaqoqnajo19/13/1951 Depression Nyjxuhocx26/13/1964Zoster Vaccines (1 of 2)11/06/2001Fall Risk Irajglegp65/13/8810Ibztkksoz29/15/202406/OVID-19 Vaccine ( season)5008/14/2021, 10/10/2020, 09/19/2020Influenza Vaccine (#1) 5109/21/2023, 05/18/2023, 06/11/2022, Additional history existsAdult Gvimhsw22, 07/08/2016, 10/05/2009Pneumococcal Vaccine: 50+ DffqnYbpfmhqdy71/15/2019, 04/14/2019, 03/22/2018HIB VaccinesAged OutNo longer eligible based on patient's age to complete this topicHPV VaccinesAged OutNo longer eligible based on patient's age to complete this topicIPV VaccinesAged OutNo longer eligible based on patient's age to complete this topicMeningococcal B VaccineAged OutNo longer eligible based on patient's age to complete this topicMeningococcal VaccineAged OutNo longer eligible based on patient's age to complete this topicRotavirus VaccinesAged OutNo longer eligible based on patient's age to complete this topic Insurance * Guarantor: Leslie Mathis TypeRelation to PatientDate of BirthPhone Billing AddressPersonal/FsubuyMvqr06/[birth year][address] [id number] Care Teams Team MemberRelationshipSpecialtyStart DateEnd Date Venecia Vyas MD [address] [facility] [address] [place] [address] PCP - GeneralInternal Ksppixjj48/7/24
--- OUTSIDE RECORDS SUMMARY | 2025-05-18 12:45 | XMS_ITS | Clinical Summary ---
Author Organization [facility] Address [address] [place] [address] Phone Care Team Providers Care Desktop Publishing Operator Name Role Phone Unavailable Primary Care Provider Unavailabl e Social History Tobacco UseTypesPacks/DayYears UsedDateSmoking Tobacco: Never Assessed CommentsUnknownSex and Gender InformationValueDate RecordedSex Assigned at Not on fileLegal RqhRhguxh59/26/2022 9:27 PM ESTGender IdentityNot on fileSexual OrientationNot on file Plan of Treatment Not on file
--- OUTSIDE RECORDS SUMMARY | 2025-05-18 12:45 | XMS_ITS | Clinical Summary ---
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 Role Phone Venecia King MD Unavailable Venecia King MD Primary Care Provider [phone] Celeste Chung LPN Unavailable Allergies Active AllergyReactionsCriticalityNoted DateCommentsMilnacipran HclOther 3Penicillin GShortness of gtykmpTfds33/25/2023SemaglutideHeadacheLow 01/26/2025 Medications MedicationSigDispense QuantityRefillsLast FilledStart DateEnd DateStatus meclizine (Antivert) 25 MG tablet Take 25 mg by mouth 3 (three) times a day as needed for dizzinessActive MAGNESIUM GLYCINATE ADVANCED PO Take 1 tablet by mouth DailyActive CALCIUM MAGNESIUM ZINC PO Take 1 tablet by mouth DailyActive metaxalone (Skelaxin) 800 MG tablet Indications:Chronic low back pain without sciatica, unspecified back pain lateralityTAKE 1 TABLET BY MOUTH IN THE MORNING, IN THE EVENING AND BEFORE BEDTIME 90 tablet 4Active PARoxetine (Paxil) 20 MG tablet Indications:Depressive disorderTAKE 1 TABLET EVERY MORNING 90 tablet 5Active pregabalin (Lyrica) 50 MG capsule Take 50 mg by mouth in the morning and 50 mg before bedtime.5Active potassium chloride CR (Klor-Con M10) 10 MEQ ER tablet Indications:Localized swelling of both lower legsTAKE 1 TABLET EVERY DAY (DO NOT CRUSH OR CHEW) 90 tablet 5Active furosemide (Lasix) 20 MG tablet Indications:Edema, unspecified typeTAKE 1 TABLET TWICE DAILY 180 tablet 3085Active acetaminophen-codeine (Tylenol w/ Codeine #3) 300-30 MG tablet Take 1 tablet by mouth every 6 (six) hours if needed for severe painActive ibuprofen 800 MG tablet Indications:FibromyalgiaTake 1 tablet (800 mg) by mouth every 8 (eight) hours if needed for moderate pain Take with food 90 tablet 508/5Active carvedilol (Coreg) 12.5 MG tablet Indications:Essential hypertensionTAKE 1 TABLET TWICE DAILY WITH FOOD 180 tablet 3095Active dilTIAZem CD (Cardizem CD) 240 MG 24 hr capsule Indications:Essential hypertensionTAKE 1 CAPSULE EVERY DAY 90 capsule 5Active DULoxetine (Cymbalta) [address] capsule Indications:FibromyalgiaTAKE 1 CAPSULE IN THE MORNING AND 1 CAPSULE BEFORE BEDTIME. DO NOT CRUSH OR CHEW. 200 capsule 5Active fexofenadine (Keren) 60 MG tablet Indications:Skin irritationTake 60 mg by mouth in the morning and 60 mg before bedtime.Active ferrous sulfate 324 (65 Fe) MG EC tablet Indications:Iron deficiency anemia due to chronic blood lossTake 1 tablet (324 mg) by mouth 3 (three) times a week Do not crush, chew, or split. 12 tablet 5Active warfarin (Coumadin) 5 MG tablet Indications:Longstanding persistent atrial fibrillation (HCC)TAKE 1 TABLET ONE TIME DAILY, EXCEPT TAKE 2 TABLETS ON SUNDAYS AND WEDNESDAYS 120 tablet 5Active predniSONE (Deltasone) 10 MG tablet Indications:Acute eczemaTake 4 tablets (40 mg) by mouth Daily for 4 days, THEN 3 tablets (30 mg) Daily for 4 days, THEN 2 tablets (20 mg) Daily for 4 days, THEN 1 tablet (10 mg) Daily for 4 days. 40 tablet 5Active warfarin (Coumadin) 5 MG tablet Indications:Longstanding persistent atrial fibrillation (HCC)TAKE 1 TABLET ONE TIME DAILY, EXCEPT TAKE 2 TABLETS ON SUNDAYS AND WEDNESDAYS 120 tablet Discontinued Active Problems ProblemNoted DateDiagnosed DateAcute vdhcxf3305/11/2025 Assessment & Plan (05/11/2025 2:54 PM EDT): Add over the counter HC I discussed with patient that while on prednisone, do not take any NSAIDs like Ibuprofen, Naprosyn,Alleve or motrin. Watch for any side effects like abdominal pain and nausea. Take the prednisone with food or milk. Prednisone may increase appetite. While on prednisone, watch for any sugar elevations. Cmbzdmdutwymvi92/05/2025ge-related osteoporosis without current pathological fvjzfune37/14/2025Pulmonary hypertension, cqmauklpdyt83/14/2025Paroxysmal atrial atqwyoctkhwg65/12/2024trial septal defect ([facility])04/04/2024 Assessment & Plan (04/04/2024 10:25 AM EDT): See Fiction And Nonfiction Author in end of March Nonrheumatic tricuspid valve yoclctvjkawgm00/09/2024yspnea on exertion 03/07/2024Localized swelling of both lower legs03/07/2024ody mass index (BMI) 40.0-44.9, adult03/07/2024Other thrombophilia ([facility])03/07/2024djustment disorder in kvcicvjsi40/31/2023sthmatic exccehcegr28/31/2023ecreased estrogen level02/23/2023epressive ziratoiu34/31/2023Essential wonncnchdfju66/31/2023 Assessment & Plan (04/04/2024 10:15 AM EDT): [...] taking them as prescribed. DASH diet handouts Assessment & Plan (10/20/2023 11:32 [...] taking them as prescribed. DASH diet handouts Assessment & Plan (03/24/2023 3:55 [...] taking them as prescribed. DASH diet handouts Iwigikmuilii60/31/2023Glucose intolerance (impaired glucose tolerance)02/23/2023 Assessment & Plan (10/20/2023 11:30 AM EDT): [...] and importance of healthy diet and exercise. Yiqvliksftzfmq11/31/2023 Assessment & Plan (03/24/2023 3:56 PM EDT): Declines Lipid lowering agent Iron deficiency anemia due to chronic blood loss02/23/2023iatrial enlargement 02/23/2023 Assessment & Plan (04/04/2024 10:27 AM EDT): Sees Cardiology Probably one of the causes of atrial fibrillation Morbid (severe) obesity due to excess jclpmeew15/31/2023 Assessment & Plan (10/20/2023 11:30 AM EDT): Weight loss encouraged Clubxwm0002/23/2023Obstructive sleep apnea dhvyjbso06/31/2023Osteoarthritis of both knees02/23/2023rimary zlhzgaufrihyyv77/31/2023Tinnitus of both ears 02/23/2023 Resolved Problems ProblemNoted DateDiagnosed DateResolved DateNeoplasm of uncertain behavior of skin of handElevated LDL cholesterol level03/07/2024 04/17/2025reast lwnjhzlyp78 Assessment & Plan (03/24/2023 3:55 PM EDT): Mammo ordered Medicare annual wellness visit, mxkwscvibz94/29/202302/ Assessment & Plan (04/04/2024 10:16 AM EDT): Colonoscopy every 10 years or Cologuard every 3 years ages 50-75 Flu Vaccine yearly Pneumovax and Prevnar Mammo yearly for women and PSA yearly for men Labs/Screening yearly to rule out Diabetes, Chronic Kidney disease and liver disease Hepatitis Screen forat risk populations Shingles vaccine after65 if indicated Tetanus Vaccine every 10 years Lipids yearly under the age of 75 If Smoking history: one time CT scan of chest and Ultrasound of Aorta to screen for Anuerysm Other osteoporosis without current pathological cyqxoimh70/ Osteoarthritis of knee/06/2024 Encounters DateTypeDepartmentCare UzzdJmyfobfugsz01/16/2025 2:30 PM EDTOffice Visit [facility] [address] [place] [address] Venecia King MD Acute eczema (Primary Dx)05/11/20258400Jlccwh17/16/2025Refill [facility] [address] [place] [address] Venecia King MD Longstanding persistent atrial fibrillation (HCC)05/09/2025Telephone [facility] [address] [place] [address] Venecia King MD chapped lips05/03/2025bstract [facility] [address] [place] [address] Venecia King MD 04/26/2025Telephone [facility] [address] [place] [address] Venecia King MD 04/25/2025bstract [facility] [address] [place] [address] Venecia King MD 04/20/2025bstract [facility] [address] [place] [address] Venecia King MD 04/18/2025bstract [facility] [address] [place] [address] Venecia King MD 04/18/2025Telephone [facility] [address] [place] [address] Ignacia Felipe PA Qnyhtco1504/17/2025 10:30 AM EDTOffice Visit [facility] [address] [place] [address] Ignacia Felipe PA Medicare annual wellness visit, subsequent (Primary Dx); ACP (advance care planning); Essential hypertension ; Paroxysmal atrial fibrillation (HCC); Localized swelling of both lower legs; Glucose intolerance (impaired glucose tolerance); Iron deficiency anemia due to chronic blood loss; Other thrombophilia ([facility]); Mixed hyperlipidemia ; Skin irritation; Moderate persistent asthmatic bronchitis without complication ([facility]); Decreased estrogen level; Recurrent major depressive disorder, in full remission ; Fibromyalgia; Adjustment disorder in remission ; Biatrial enlargement; Morbid (severe) obesity due to excess calories ([facility]); Myalgia; Obstructive sleep apnea syndrome; Primary osteoarthritis of both knees; Primary osteoarthritis involving multiple joints; Tinnitus of both ears; Dyspnea on exertion; Body mass index (BMI) 40.0-44.9, adult ([facility]); Atrial septal defect ([facility]); Nonrheumatic tricuspid valve regurgitation; Age-related osteoporosis without current pathological fracture ; Pulmonary hypertension, unspecified ([facility]); Tpzdkkdewnyiec65/22/2025amboo flowsheet [facility] [address] [facility] [address] [place] [address] Ignacia Felipe PA 04/17/20250764Oahykw21/17/2025Refill [facility] [address] [facility] [address] [place] [address] Ignacia Felipe PA Fttsupndanse33/13/2025Refill [facility] [address] [facility] [address] [place] [address] Venecia King MD Essential gxxkviqplate89/10/2025bstract [facility] [address] [place] [address] Venecia King MD 04/03/2025Patient Outreach [facility] [place] [address] [place] [address] Celeste Chung LPN 03/25/2025Refill [facility] [address] [facility] [address] [place] [address] Venecia King MD Essential ddtndfivxqft63/07/2025bstract [facility] [address] [place] [address] Venecia King MD 02/28/2025 10:30 AM EDTOffice Visit [facility] [address] [facility] [address] [place] [address] Ignacia Felipe PA Paroxysmal atrial fibrillation (HCC) (Primary Dx); Fibromyalgia; Glucose intolerance (impaired glucose tolerance); Anticoagulated; Primary osteoarthritis of both knees02/28/2025amboo flowsheet [facility] [address] [facility] [address] [place] [address] Ignacia Felipe PA 02/28/20259486Zairhf64/02/2025Refill [facility] [address] [facility] [address] [place] [address] Venecia King MD Edema, unspecified typefrom Last 3 Months Immunizations ImmunizationAdministration DatesNext DueInfluenza, High Dose Seasonal, Preservative Free07/21/2024,05/05/2021,05/10/2019,03/22/2018,06/03/2017 Influenza, High-dose Seasonal, Quadrivalent, Preservative Free05/05/2021 Influenza, Seasonal, Quadrivalent, Shpljknaav69/23/2023,06/11/2022,05/27/2020 Influenza, seasonal, injectable, preservative free05/08/2015Influenza, seasonal, intradermal, preservative free05/29/2016Pneumococcal Conjugate PCV 1308 Pneumococcal Polysaccharide DMST6753,04/14/2019TD (adult), 2 Lf tetanus toxoid, preservative free, eqqwhvvs69/12/5552Hqdk62/19/2019,07/08/2016 Family History Medical HistoryRelationNameCommentsCancerMotherHeart diseaseMotherMental illness MotherDiabetesSiblingHypertensionSiblingRelationNameStatusCommentsFatherDeceased MotherDeceasedSibling Social History Tobacco UseTypesPacks/DayYears UsedDateSmoking Tobacco: NeverSmokeless Tobacco: Never Tobacco Cessation:Counseling Given: Not Answered Alcohol UseStandard Drinks/WeekCommentsNever0 (1 standard drink = 0.6 oz pure alcohol)caffeine: chocolate, coffee,soda,avaN8138 Health LiteracyAnswerDate RecordedHow often do you need [...] times a week10/14/2023How often do you attend religious or sabianism services?1 to 4 times per year10/14/2023o you belong to any clubs or organizations such as religious groups, unions, fraternal or athletic groups, or school groups?No10/14/2023How often do you attend meetings of the clubs or organizations you belong to?Never10/14/2023re you , , , , never , or living with a partner?Never mnzptoi3210/14/2023UDIT-CAnswerDate RecordedQ1: How often do you have a [...] hard at all10/14/2023HQ-2AnswerDate RecordedPatient Health Questionnaire-2 Score0 05/11/2025[facility] [place] [facility] - Occupational Stress QuestionnaireAnswerDate [...] steady place to sleep or slept in [place] (including now)?No10/14/2023CommentsUnknown Sex and Gender InformationValueDate RecordedSex Assigned at BirthNot on file Legal EmcHkdppj55/15/2023 6:42 PM EDTGender IdentityNot on fileSexual OrientationNot on file Last Filed Vital Signs Vital SignReadingTime TakenCommentsBlood Vuoopvob903/7810 2:30 PM EDT Vjhue2970/ 2:30 PM EDTTemperature--Respiratory Syrz334804/17/2025 10:30 AM EDTOxygen Lwtdiekjbf09%05/11/2025 2:30 PM EDTInhaled Oxygen Concentration-- Ztnena943 kg (270 lb)05/11/2025 2:30 PM XEQNcprga853.1 cm (5' 5 )05/11/2025 2:30 PM EDTBody Mass Index44.9305/11/2025 2:30 PM EDT Plan of Treatment Health MaintenanceDue DateLast DoneCommentsCT Kzcjrwkhlsnz04/13/1952Colonoscopy 1951FIT1951FOBT8571Hxseeegqkpaer16/13/1952FIT-DNA12/31/2024 12/31/2021, 12/31/2021, 10/19/2018, Additional history existsInfluenza Vaccine (#1)/, 05/18/2023, 06/11/2022, Additional history exists Diabetes: Hemoglobin A1C/, 01/26/2025, 10/20/2023, Additional history existsColorectal Cancer Amoytigyr32/03/2026Postponed from 1951 (Patient Refused)Diabetes: Urine Protein Hchbpjbcl34/05/571525/11/2024, 10/20/20236027Ywwdioiai64/05/202609/04/2024, 04/21/2023, 04/01/2023, Additional history existsPostponed from 04/05/2025 (Patient Refused)Medicare Annual Wellness (AWV), 04/04/2024, 03/24/2023, Additional history existsDiabetes: Retinopathy Imgoodlel27Pneumococcal Vaccine: 65+ KpuzgYtpfagcrn34/15/2019, 04/14/2019, 03/22/2018 Procedures Procedure NamePriorityDate/TimeAssociated DiagnosisCommentsDIABETIC RETINOPATHY SCREENING - OU - BOTH GNZRPgkpfxn65/25/2025 8:51 AM EDT IRON + TRANSFERRIN + MZTISfzvcwr92/22/2025 10:51 AM EDT Medicare annual wellness visit, subsequent Iron deficiency anemia due to chronic blood loss LIPID BJQBVLklmspo26/22/2025 10:51 AM EDT Medicare annual wellness visit, subsequent Essential hypertension Paroxysmal atrial fibrillation (HCC) Glucose intolerance (impaired glucose tolerance) Mixed hyperlipidemia HEMOGLOBIN K8TPluwaul55/22/2025 10:51 AM EDT Medicare annual wellness visit, subsequent Glucose intolerance (impaired glucose tolerance) COMPREHENSIVE METABOLIC BTHWFQgkwjii21/22/2025 10:51 AM EDT Medicare annual wellness visit, subsequent Essential hypertension Paroxysmal atrial fibrillation (HCC) Localized swelling of both lower legs Glucose intolerance (impaired glucose tolerance) Mixed hyperlipidemia CBC (INCLUDES DIFF/PLT)Qdmtcjx6604/17/2025 10:51 AM EDT Medicare annual wellness visit, subsequent Essential hypertension Paroxysmal atrial fibrillation (HCC) Localized swelling of both lower legs Iron deficiency anemia due to chronic blood loss Other thrombophilia ([facility]) Mixed hyperlipidemia MICROALBUMIN / CREATININE URINE AFTJTXlaxnep05/05/2025 1:39 PM EDT Glucose intolerance (impaired glucose tolerance) POCT PROTIME-INR, XDSYQCAVYRXIrdwkrp34/05/2025 10:52 AM EDT Paroxysmal atrial fibrillation (HCC) MM TOMOSYNTHESIS SCREENING BI04/05/2024 5:14 PM EDT LAB COLOGUARD?? COLON CANCER ROUJLUAxfsznp26/07/2022 from Last 3 Months or Most Recently Relevant to Health Maintenance Results * Diabetic Retinopathy Screening - OU - Both Eyes (04/20/2025 8:51 AM EDT) ComponentValueRef RangeTest MethodAnalysis TimePerformed AtPathologist SignatureRESULTSndrAnatomical RegionLateralityModalityHeadOther Narrative Authorizing ProviderResult TypeResult StatusVenecia King MDOPHTH PHOTOGRAPHY Final Result * (ABNORMAL) Iron + transferrin + TIBC (04/17/2025 10:51 AM EDT)ComponentValue Ref RangeTest MethodAnalysis TimePerformed AtPathologist SignatureIRON, TOTAL 6045 - 160 mcg/dLQUESTIRON BINDING GEEVIQNA868736 - 450 mcg/dL (calc)QUEST% DUQBMFCSIR38(L)16 - 45 % (calc)VKYDIRPIGDGPW7251 - 288 ng/mLQUESTSpecimen (Source)Anatomical Location / LateralityCollection Method / VolumeCollection TimeReceived UmlkQbcot73/22/2025 10:51 AM EDT04/17/2025 10:51 AM EDT Narrative [facility] - 04/18/2025 10:10 AM EDT FASTING:YES FASTING: YES Resulting Agency Comment Performing Organization Information ?Site ID: QPT ?Name: [facility] ?Address: [address] [place] [phone] ?Director: Steve Chávez MD Authorizing ProviderResult TypeResult StatusIgnacia Berman [facility]erviktoria [facility] BLOOD ORDERABLESFinal ResultPerforming OrganizationAddressCity/State/ZIP CodePhone Number [facility] * (ABNORMAL) CBC and differential (04/17/2025 10:51 AM EDT)ComponentValueRef RangeTest MethodAnalysis TimePerformed AtPathologist SignatureWHITE BLOOD CELL COUNT5.23.8 - 10.8 Thousand/uLQUESTRED BLOOD CELL COUNT4.303.80 - 5.10 Million/rVMAJXLKCBSKZQDHM37.011.7 - 15.5 g/yHPJRPOXVBKXUZOFN95.435.0 - 45.0 % BUFNDVYE62.380.0 - 100.0 tJYOOERSLH29.927.0 - 33.0 stRXZBDCOUG16.3(L)32.0 - 36.0 g/dLQUESTComment: For adults, a slight decrease in the calculated MCHC value (in the range of 30 to 32 g/dL) is most likely not clinically significant; however, it should be interpreted with caution in correlation with other red cell parameters and the patient's clinical condition. RDW14.111.0 - 15.0 %QUESTPLATELET RDBEQ177374 - 400 Thousand/yOSVNMTCLW22.97.5 - 12.5 fLQUESTABSOLUTE NEUTROPHILS3,4061,500 - 7,800 cells/uLQUESTABSOLUTE UNIWDDDINAK586029 - 3,900 cells/uLQUESTABSOLUTE JTFMZLQCD924372 - 950 cells/uL QUESTABSOLUTE EZDXUYKYNVQ35004 - 500 cells/uLQUESTABSOLUTE LTWPTBMZJ657 - 200 cells/bFSVZVGOWVPFKGKYRE53.5%YGUALHLFSUSLVRCY09.6%QIGVTFIYRNSMTM15.1%QUEST EOSINOPHILS6.0%QUESTBASOPHILS0.8%QUESTSpecimen (Source)Anatomical Location / LateralityCollection Method / VolumeCollection TimeReceived TimeBloodVenous blood specimen / Gsijboj9604/17/2025 10:51 AM EDT04/17/2025 10:51 AM EDT Narrative [facility] - 04/18/2025 10:10 AM EDT FASTING:YES FASTING: YES Resulting Agency Comment Performing Organization Information ?Site ID: QPT ?Name: [facility] ?Address: [address] [place] [phone] ?Director: Steve Chávez MD Authorizing ProviderResult TypeResult StatusIgnacia Felipe [facility] BLOOD ORDERABLESFinal ResultPerforming OrganizationAddressCity/State/ZIP CodePhone Number [facility] * (ABNORMAL) Hemoglobin A1c (04/17/2025 10:51 AM EDT)ComponentValueRef RangeTest MethodAnalysis TimePerformed AtPathologist SignatureHemoglobin A1C6.1(H)<5.7 % QUESTComment: For someone without known diabetes, a hemoglobin A1c value between 5.7% and 6.4% is consistent with prediabetes and should be confirmed with a follow-up test. For someone with known diabetes, a value <7% indicates that their diabetes is well controlled. A1c targets should be individualized based on duration of diabetes, age, comorbid conditions, and other considerations. This assay result is consistent with an increased risk of diabetes. Currently, no consensus exists regarding use of hemoglobin A1c for diagnosis of diabetes for children. Specimen (Source)Anatomical Location / LateralityCollection Method / Volume Collection TimeReceived TimeBloodVenous blood specimen / Qxtjodn3904/17/2025 10:51 AM EDT04/17/2025 10:51 AM EDT Narrative [facility] - 04/18/2025 10:10 AM EDT FASTING:YES FASTING: YES Resulting Agency Comment Performing Organization Information ?Site ID: QPT ?Name: [facility] ?Address: [address] [place] [address], [address] [place] [phone] ?Director: Steve Chávez MD Authorizing ProviderResult TypeResult StatusIgnacia Felipe PALAB BLOOD ORDERABLESFinal ResultPerforming OrganizationAddressCity/State/ZIP CodePhone Number [facility] * Lipid panel (04/17/2025 10:51 AM EDT)ComponentValueRef RangeTest Method Analysis TimePerformed AtPathologist SignatureCHOLESTEROL, UAUHJ262<200 mg/dL QUESTHDL LYXGOMGBNII09> OR = 50 mg/eDUZDVEVETCZJXGELSGU06<150 mg/dLQUESTLDL IYAZLCZLTAE61jz/dL (calc)QUESTComment: Reference range: <100 Desirable range <100 mg/dL for primary prevention; <70 mg/dL for patients with CHD or diabetic patients with > or = 2 CHD risk factors. LDL-C is now calculated using the Vitaliy-Jerome calculation, which is a validated novel method providing better accuracy than the Friedewald equation in the estimation of LDL-C. Vitaliy SS et al. BRIELLE. 2013;310(19): 0953-1741 (http://education.[employer]/faq/GJL097) CHOL/HDLC RATIO2.9<5.0 (calc)QUESTNON HDL UYDNURHYCWM763<130 mg/dL (calc)QUEST Comment: For patients with diabetes plus 1 major ASCVD risk factor, treating to a non-HDL-C goal of <100 mg/dL (LDL-C of <70 mg/dL) is considered a therapeutic option. Specimen (Source)Anatomical Location / LateralityCollection Method / Volume Collection TimeReceived TimeBloodVenous blood specimen / Qxjjyeu2004/17/2025 10:51 AM EDT04/17/2025 10:51 AM EDT Narrative [facility] - 04/18/2025 10:10 AM EDT FASTING:YES FASTING: YES Resulting Agency Comment Performing Organization Information ?Site ID: QPT ?Name: [facility] ?Address: [facility] [address] [place] [address] ?Director: Steve Chávez MD Authorizing ProviderResult TypeResult StatusIgnacia Felipe PAL BLOOD ORDERABLESFinal ResultPerforming OrganizationAddressCity/State/ZIP CodePhone Number [facility] * Comprehensive metabolic panel (04/17/2025 10:51 AM EDT)ComponentValueRef Range Test MethodAnalysis TimePerformed AtPathologist TioxarsbiVmbcrdc4173 - 99 mg/dLQUESTComment: ? Fasting reference interval CHR803 - 25 mg/dLQUESTCreatinine0.710.60 - 1.00 mg/zGHIMSETDYA62> OR = 60 mL/min/1.27c3GTYFMCCQ/CREATININE RATIOSEE NOTE: (calc)QUESTComment: ?? Not Reported: BUN and Creatinine are within ?? reference range. ? Xyxhll235156 - 146 mmol/LQUESTPotassium, Bld4.73.5 - 5.3 mmol/BTJWOGNwsdldfw349 98 - 110 mmol/LQUESTCarbon Ezpxcuw9983 - 32 mmol/LQUESTCalcium9.18.6 - 10.4 mg/dLQUESTPROTEIN, TOTAL6.66.1 - 8.1 g/dLQUESTALBUMIN4.33.6 - 5.1 g/dLQUEST GLOBULIN2.31.9 - 3.7 g/dL (calc)QUESTALBUMIN/GLOBULIN RATIO1.91.0 - 2.5 (calc) QUESTBILIRUBIN, TOTAL0.70.2 - 1.2 mg/dLQUESTALKALINE OXFAKDXKADA7628 - 153 U/L JRWDKJTJ4571 - 35 U/CIESJOAXE620 - 29 U/LQUESTSpecimen (Source)Anatomical Location / LateralityCollection Method / VolumeCollection TimeReceived TimeBlood Venous blood specimen / Ahjzbwu5004/17/2025 10:51 AM EDT04/17/2025 10:51 AM EDT Narrative [facility] - 04/18/2025 10:10 AM EDT FASTING:YES FASTING: YES Resulting Agency Comment Performing Organization Information ?Site ID: QPT ?Name: [facility] ?Address: [address] [place] [address], [address] [place] [phone] ?Director: Steve Chávez MD Authorizing ProviderResult TypeResult StatusIgnacia Berman [facility]erviktoria [facility] BLOOD ORDERABLESFinal ResultPerforming OrganizationAddressty/State/ZIP CodePhone Number [facility] * (ABNORMAL) Microalbumin / creatinine, urine ratio (02/28/2025 1:39 PM EDT) ComponentValueRef RangeTest MethodAnalysis TimePerformed AtPathologist SignatureCREATININE, RANDOM URINE17(L)20 - 275 mg/dLQUESTALBUMIN, URINE<0.2See Note: mg/dLQUESTComment: Reference Range: Reference Range Not established ALBUMIN/CREATININE RATIO, RANDOM URINENOTE<30 mg/g creatQUESTComment: NOTE: The urine albumin value is less than 0.2 mg/dL therefore we are unable to calculate excretion and/or creatinine ratio. The ADA defines abnormalities in albumin excretion as follows: Albuminuria Category ?Result (mg/g creatinine) Normal to Mildly increased <30 Moderately increased ? 30-299 Severely increased > OR = 300 The ADA recommends that at least two of three specimens collected within a 3-6 month period be abnormal before considering a patient to be within a diagnostic category. Specimen (Source)Anatomical Location / LateralityCollection Method / Volume Collection TimeReceived TimeUrineUrine specimen obtained by clean catch procedure / Qhzgvsm6302/28/2025 1:39 PM EDT02/28/2025 1:40 PM EDT Narrative Resulting Agency Comment Performing Organization Information ?Site ID: QPT ?Name: [facility] ?Address: [address] [place] [address], [address] [place] [phone] ?Director: Steve Chávez MD Authorizing ProviderResult TypeResult StatusIgnacia Berman [facility] Centerviktoria MONTIEL URINE ORDERABLESFinal ResultPerforming OrganizationAddressty/[facility]/ZIP CodePhone Number QUEST * POCT Protime-INR, fingerstick docked device (02/28/2025 10:52 AM EDT)Component ValueRef RangeTest MethodAnalysis TimePerformed AtPathologist SignatureRESULTS 2.3Specimen (Source)Anatomical Location / LateralityCollection Method / Volume Collection TimeReceived TimeBloodVenous blood specimen / [id number]/28/2025 10:52 AM EDT Narrative Authorizing ProviderResult TypeResult StatusIgnacia Felipe PAPOINT OF CARE TEST ENTER/EDIT ORDERABLESFinal Result * MM TOMOSYNTHESIS SCREENING BI (04/05/2024 5:14 PM EDT)Anatomical Region LateralityModalityOtherSpecimen (Source)Anatomical Location / Laterality Collection Method / VolumeCollection TimeReceived Time04/05/2024 5:14 PM EDT Narrative 04/05/2024 5:15 PM EDT [facility] ?[address] ? [place] [address] ? Mammography Report ? Signed ? Patient: JESSICA,LESLIE R ?MR#: [id number] ?? : 1950 ?Acct:[id number] ?? Age/Sex: 73 / F ?ADM Date: 04/05/24 ?? Loc: MAMMO ? Attending Dr: IGNACIA FELIPE ? Ordering Physician: IGNACIA FELIPE ? Results: ? Date of Service: 04/05/24 ?Follow Up: ? Procedure(s): MM tomosynthesis screening BI ?? Accession Number(s): [id number] ? cc: VENECIA KING ; IGNACIA FELIPE ? Patient Name: ? LESLIE JESSICA ? MR#: [id number] ? : 1950 ? Exam Date: 04/05/2024 ?? Ordering Doctor: DR IGNACIA MARQUEZ ? RADIOLOGY REPORT ? PROCEDURE: ? MM TOMOSYNTHESIS SCREENING BI ? COMPARISON: ? MM TOMOSYNTHESIS SCREENING BI, 04/01/2023. ??MG MAMM SCREEN 3D ?? JACQUELINE CAD, 01/08/2022. ??MG MAMM SCREEN 3D JACQUELINE CAD, 10/09/2020. ??MG MAMM JACQUELINE SCRN W ?? CAD DIG, 10/19/2013. ? INDICATIONS: ? Screening ? Calculator Name ? NCI Breast Cancer Risk Assessment Tool ?? 5 Year Breast Cancer Risk ? 3.80% ?? Lifetime Breast Cancer Risk ? 9.70% ?? Personal Breast Cancer ?No ?? Personal Ovarian Cancer ? No ?? Treatments ? None ?? Family Cancers ? Mother with breast cancer at age ??80. ? LOCATION: ? [facility] ? BREAST COMPOSITION: ? There are scattered areas of fibroglandular density. ? FINDINGS: ? DIAGNOSTIC CATEGORY 2--BENIGN FINDING: ? RIGHT BREAST: ??No significant suspicious finding. ??Scattered benign-appearing ?? calcifications are present. ??No significant change has occurred. ? LEFT BREAST: ??No significant suspicious finding. ??Scattered benign-appearing ?? calcifications are present. ??No significant change has occurred. ? RECOMMENDATIONS: ? ROUTINE MAMMOGRAM AND CLINICAL EVALUATION IN 12 MONTHS. ? PLEASE NOTE: ??A NORMAL MAMMOGRAM DOES NOT EXCLUDE THE POSSIBILITY OF BREAST ?? CANCER. ??A CLINICALLY SUSPICIOUS PALPABLE LUMP SHOULD BE BIOPSIED. ? Dictated by: Jasper Hoffmann M.D. on 04/05/2024 at 17:06 ? Approved by: Jasper Hoffmann M.D. on 04/05/2024 at 17:13 ? Dictated By: ?Jasper Hoffmann M.D. ? Signed By: ?04/05/241714 ? DD/ 13 ? TD/TT: ? Sql Engineer: Procedure Note Radiology, Radiologist, MD - 04/05/[address] [address] Mammography Report Signed Patient: LESLIE LOPEZ RMR#: [id number] : 1950cct:[id number] Age/Sex: 73 / FADM Date: 04/05/24 Loc: MAMMO Attending Dr: IGNACIA FELIPE Ordering Physician: IGNACIA FELIPE MResults: Date of Service: 04/05/24Follow Up: Procedure(s): MM tomosynthesis screening BI Accession Number(s): [id number] cc: VENECIA KING ; IGNACIA FELIPE Patient Name: LESLIE LOPEZ MR#: [id number] : 1950 Exam Date: 04/05/2024 Ordering Doctor: DR IGNACIA FELIPE PA RADIOLOGY REPORT PROCEDURE: MM TOMOSYNTHESIS SCREENING BI COMPARISON: MM TOMOSYNTHESIS SCREENING BI, 04/01/2023. MG MAMM [id number] JACQUELINE CAD, 01/08/2022. MG MAMM SCREEN 3D [...] [facility] BREAST COMPOSITION: There are scattered areas [...] Hoffmann M.D. Signed By:04/05/241714 DD/ 13 TD/TT: Sql Engineer: Authorizing ProviderResult TypeResult StatusIgnacia Berman [facility] Final Result * Cologuard?? colon cancer screening (12/31/2021)ComponentValueRef RangeTest MethodAnalysis TimePerformed AtPathologist SignatureCOLOGUARD RESULT REPORTABLENegativeNegativeNOMS LEGACY EXTERNAL LABComment: NEGATIVE TEST RESULT. A negative Cologuard result indicates a low likelihood that a colorectal cancer (CRC) or advanced adenoma (adenomatous polyps with more advanced pre-malignant features) ??is present. The chance that a person with a negative Cologuard test has a colorectal cancer is less than 1in 1500 (negative predictive value >99.9%) or has an advanced adenoma is less than 5.3% (negative predictive value 94.7%). These data are based on a prospective cross-sectional study of 10,000individuals at average risk for colorectal cancer who were screened with both Cologuard and colonoscopy. (Ora Chatman. et al, N Engl J Med 2014;370(14):1609-3919) The normal value (reference range) for this assay is negative. COLOGUARD RE-SCREENING RECOMMENDATION: Periodic colorectal cancer screening is an important part ofpreventive healthcare for asymptomatic individuals at average risk for colorectal cancer. ??Following a negative Cologuard result, the [place] [employer] Society and U.S. Multi-Society Task Force screening guidelines recommend a Cologuard re-screening interval of 3 years. References: [place] [employer] Guideline for Colorectal Cancer Screening: https://www.cancer.or g/cancer/mybps-dvumkc-lushtl/lydizudlu-xgwqdzbxt-lspwhnk/acs-recommendations.htm sandra; Madi TYSON, Natasha MUNIZ, Yesi OlmosK, Colorectal Cancer Screening: Recommendations for Physicians and Patients from the U.S. Multi-Society Task Force on Colorectal Cancer Screening , Am J Gastroenterology 2017; 112:4731-3489. TEST DESCRIPTION: Composite algorithmic analysis of stool DNA-biomarkers with hemoglobin immunoassay. ?? Quantitative values of individual biomarkers are not reportable and are not associated with individual biomarker result reference ranges. Cologuard is intended for colorectal cancer screening ofadults of either sex, 45 years or older, [...] (Ora Tolentino al, N Engl J Med 2014;370(14):3545-9383.) Cologuard may produce a false negative or false positive result (no colorectal cancer or precancerous polyp present at colonoscopy follow up). A negative Cologuard test result does not guarantee the absence of CRC or advanced adenoma (pre-cancer). The current Cologuard screening interval is every 3 years. ([place] [employer] Society and U.S. Multi-Society Task Force). Cologuard performance data in a 10,000 patient pivotal study using colonoscopy as the reference method can be accessed at the following location: www.[place].[employer]/results. Additional description of the Cologuard test process, warnings and precautions can be found at www.cologuard.com. Specimen (Source)Anatomical Location / LateralityCollection Method / Volume Collection TimeReceived Time12/31/2021 Narrative Authorizing ProviderResult TypeResult StatusVenecia RICE MOLECULAR DIAGNOSTICS ORDERABLESFinal ResultPerforming OrganizationAddressCity/State/ZIP CodePhone Number [facility] from Last 3 Months or Most Recently Relevant to Health Maintenance Insurance Care Teams Team MemberRelationshipSpecialtyStart DateEnd Date Venecia King MD [address] [facility] [address] [place] [address] PCP - ACO [facility]12/18/22 Venecia King MD [address] [facility] [address] [place] [address] [facility] - [facility]12/02/22 Celeste Chung LPN [address] [facility] [address] [place] [address] 10/14/24
--- OUTSIDE RECORDS SUMMARY | 2025-05-18 12:45 | XMS_ITS | Encounter Summary ---
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 Name Role Phone Venecia Vyas MD Unavailable Venecia Vyas MD Primary Care Provider [phone] Celeste Chung LPN Unavailable Reason for Visit * ReasonCommentsMed Refill Encounter Details DateTypeDepartmentCare Team (Latest Contact Info)Oqjospxpjvf41/16/2025Refill [facility] [address] [facility] [address] [place] [phone] Venecia Vyas MD [address] [facility] [address] [place] [address] Longstanding persistent atrial fibrillation (HCC) Social History Tobacco UseTypesPacks/DayYears UsedDateSmoking Tobacco: NeverSmokeless Tobacco: NeverAlcohol UseStandard Drinks/WeekCommentsNever0 (1 standard drink = 0.6 oz pure alcohol)caffeine: chocolate, coffee,soda,[id number] Health LiteracyAnswerDate RecordedHow often do you need [...] times a week10/14/2023How often do you attend muslim or anabaptism services?1 to 4 times per year10/14/2023o you belong to any clubs or organizations such as muslim groups, unions, fraternal or athletic groups, or school groups?No10/14/2023How often do you attend meetings of the clubs or organizations you belong to?Never10/14/2023re you , , , , never , or living with a partner?Never reloiav6510/14/2023UDIT-CAnswerDate RecordedQ1: How often do you have a [...] hard at all10/14/2023HQ-2AnswerDate RecordedPatient Health Questionnaire-2 Score0 05/11/2025Fin[facility] [place] [facility] Occup[facility] - Occupational Stress QuestionnaireAnswerDate [...] steady place to sleep or slept in altonaelter (including now)?No10/14/2023CommentsUnknown Sex and Gender InformationValueDate RecordedSex Assigned at BirthNot on file Legal VaqUroesk78/15/2023 6:42 PM EDTGender IdentityNot on fileSexual OrientationNot on filedocumented as of this encounter Plan of Treatment Not on file documented as of this encounter Visit Diagnoses Diagnosis Longstanding persistent atrial fibrillation (HCC) documented in this encounter Additional Health Concerns AssessmentNoted TimePHQ-9 Depression Total Score: 10:00 AM EDTA fall risk assessment has been completed for the [id number]/14/2023 9:55 AM EDT documented as of this encounter Care Teams Team MemberRelationshipSpecialtyStart DateEnd Date Venecia Vyas MD [address] [facility] [address] [place] [address] PCP - ACO [place]12/18/22 Venecia Vyas MD [address] [address] PCP - [facility]Fanorth [facility] Medicine12/02/22 Celeste Chung LPN [address] [address] 10/14/24documented as of this encounter
--- OUTSIDE RECORDS SUMMARY | 2025-05-18 12:46 | XMS_ITS | CCD ---
Author Organization [facility] Care Team Providers Care Land Development Manager Name Role Phone PHYSICIAN, DEFAULT Unavailable Unavailable [...] ., NARENDCARMENATH Admitting Li vailable LAKSHMIPATHY ., JES Consulting Li vailable CHRISTINE, DR TRUJILLO Primary Care Unavailable LAKSHMIPATHY ., MARTINAATH Attending Li vailable CHRISTINE, DR TRUJILLO Primary Care Unavailable FAWWAD, BERNSTEIN H Attending Unavailable FAWWAD, BERNSTEIN H Admitting Unavailable LAKSHMIPATHY ., SCARLETENDCARMENATH Attending Li vailable LAKSHMIPATHY ., MARTINAATH Admitting [...] Attending Unavailable FAWWAD, BERNSTEIN H Admitting Unavailable CHRISITNE, DR TRUJILLO Primary Care Unavailable FAWWAD, BERNSTEIN [...] Attending Li vailable CARLINE QUAN Attending Unavailable [place] Venecia GRECO Unavailable Venecia Colon MD Primary Care Provider Thursday PAINTER BOTTOM, Yandy Unavailable Estefani Osman RN Unavailable [phone] Chung PAINTER BOTTOM, Celeste Unavailable IGNACIA FELIPE Attending Unavailable HEMIGNACIA PERALTA Attending Unavailable IGNACIA FELIPE Attending Unavailable IGNACIA FELIPE Attending Unavailable CHRISTINEVENECIA Attending Unavailable Allergies Allergy ClassificationReported Allergen(s)Allergy TypeDate of OnsetReaction(s) Facility (2 sources)PenicillinsDrug allergy (disorder)31-16-9546Qnm [facility] Repository (1 source)Penicillin; Translations: [PENICILLIN]Drug Zgkmjxf65-13-2454SgpqfphikdOhio [facility] (20 sources)milnacipranDrug Spsmiku38-20-9917SfdzfFIAU Healthcare (20 sources)Penicillin GDrug Lpmhulf17-74-5196Anpjlaekj of breathNODC Healthcare (12 sources)SemaglutidePropensity to adverse rbiqfmwlx55-13-3911ZegyzsrsJKUJ Healthcare Medications Current Medications MedicationDrug Class(es)DatesSig (Normalized)Sig (Original)acetaminophen 300 mg / codeine phosphate 30 mg oral tablet (9 sources)Opioid Agonisttake 1 tablet by mouth every six hours as needed for painacetaminophen-codeine (Tylenol w/ Codeine #3) 300-30 MG tablet Take 1 tablet by mouth every 6 (six)hours if needed for severe pain Activeamiodarone hydrochloride 200 mg oral tablet (9 sources)AntiarrhythmicStart: 08-16-2024 End: 05-35-6226cazf 1 tablet by mouth once dailyamiodarone (Pacerone) 200 MG tablet Take 200 mg by mouth Daily 08/16/2024 02/28/2025 DiscontinuedCALCIUM MAGNESIUM ZINC PO (20 sources)take 1 tablet by mouth once dailyCALCIUM MAGNESIUM ZINC PO Take 1 tablet by mouth Daily Activecarvedilol 12.5 mg oral tablet (20 sources)alpha-Adrenergic Nathaniel, beta-Adrenergic BlockerStart: 03-28-2025 carvedilol (Coreg) 12.5 MG tablet Indications: Essential hypertension TAKE 1 TABLET TWICE DAILY WITH FOOD 180 tablet 3 03/28/2025 ActiveStart: 06-06-2024 carvedilol (Coreg) 12.5 MG tablet Indications: Essential hypertension TAKE 1 TABLET TWICE DAILY WITH FOOD 200 tablet 3 06/06/2024 ActiveStart: 08-17-2023 carvedilol (Coreg) 12.5 MG tablet Indications: Essential hypertension (CMS/HCC) TAKE 1 TABLET TWICEDAILY WITH FOOD 180 tablet 3 08/17/2023 ActiveChondroitin Sulfates / Glucosamine (18 sources) End: 84-53-6925msbq 1 tablet by mouth once dailyGlucosamine-Chondroitin (OSTEO BI-FLEX REGULAR STRENGTH PO) Take 1 tablet by mouth Daily 04/17/2025Discontinued (Therapy completed)take 1 tablet by mouth once dailyGlucosamine-Chondroitin (OSTEO BI-FLEX REGULAR STRENGTH PO) Take 1 tablet by mouth Daily Active1 ml denosumab 60 mg/ml prefilled syringe (5 sources)RANK Ligand InhibitorStart: 09-09-2024 End: 38-88-8683yokyyc 1 mL by subcutaneous injection oncedenosumab (Prolia) 60 MG/ML solution prefilled syringe Indications: Age-related osteoporosis without current pathological fracture Inject 1 mL (60 mg) under the skin 1 (one) time for 1 dose 09/09/2024 01/26/2025 Discontinued (Cost of medication)24 hr dilTIAZem hydrochloride 240 mg extended release oral capsule (20 sources)Calcium Channel BlockerStart: 02-92-5428jtdULWLzy CD (Cardizem CD) 240 MG 24 hr capsule Indications: Essential hypertension TAKE 1 CAPSULE EVERY DAY 90 capsule 3 04/10/2025 ActiveStart: 29-88-6663vttYRJYpi CD (Cardizem CD) 240 MG 24 hr capsule Indications: Essential hypertension TAKE 1 CAPSULE EVERY DAY 90 capsule 01/25/2025 ActiveStart: 08-01-9625tfxQPUOmd CD (Cardizem CD) 240 MG 24 hr capsule Indications: Essential hypertension (CMS/HCC) TAKE 1 CAPSULE EVERY DAY 100 capsule 3 04/06/2024 ActiveStart: 65-65-3883xamBPNFpi CD (Cardizem CD) 240 MG 24 hr capsule Indications: Essential hypertension (CMS/HCC) TAKE 1 CAPSULE EVERY DAY 100 capsule 3 02/23/2023 ActiveDULoxetine 30 mg delayed release oral capsule (12 sources)Serotonin and Norepinephrine Reuptake InhibitorStart: 04-12-2025 DULoxetine (Cymbalta) [address] capsule Indications: Fibromyalgia TAKE 1 CAPSULE IN THE MORNING AND 1 CAPSULE BEFORE BEDTIME. DO NOT CRUSH OR CHEW. 200 capsule 3 04/12/2025 ActiveStart: 09-93-5835doel 1 capsule by mouth in the morning DULoxetine (Cymbalta) [address] capsule Indications: Fibromyalgia Take 1 capsule (30 mg) by mouth inthe morning and 1 capsule (30 mg) before bedtime. Do not crush or chew. 60 capsule 2 01/26/2025 Activeferrous sulfate 324 mg delayed release oral tablet (4 sources)Start: 17-24-1757bffm 1 tablet by mouth three times weeklyferrous sulfate 324 (65 Fe) MG EC tablet Indications: Iron deficiency anemia due to chronic blood loss Take 1 tablet (324 mg) by mouth 3 (three) times a week Do not crush, chew, or split. 12 tablet Activefexofenadine hydrochloride 60 mg oral tablet (6 sources)Histamine-1 Receptor Antagonisttake 1 tablet by mouth in the morning fexofenadine (Keren) 60 MG tablet Indications: Skin irritation Take 60 mg by mouth in the morningand 60 mg before bedtime. Activefurosemide 20 mg oral tablet (20 sources)Loop DiureticStart: 63-71-7362nrnuknabxj (Lasix) 20 MG tablet Indications: Edema, unspecified type TAKE 1 TABLET TWICE DAILY 180 tablet 3 02/27/2025 ActiveStart: 04-89-9292uojgalejwm (Lasix) 20 MG tablet Indications: Edema, unspecified type TAKE 1 TABLET TWICE DAILY 180 tablet 3 05/09/2024 Active Start: 07-75-4293viwdpbhkpu (Lasix) 20 MG tablet Indications: Edema, unspecified type TAKE 1 TABLET TWICE DAILY 180 tablet 3 07/21/2023 Activeibuprofen 800 mg oral tablet (20 sources)Nonsteroidal Anti-inflammatory DrugStart: 01-16-2025 End: 92-02-7991xgev 1 tablet by mouth every eight hours for painibuprofen 800 MG tablet Indications: Fibromyalgia Take 1 tablet (800 mg) by mouth every 8 (eight) hours if needed for moderate pain Take with food 90 tablet 5 02/28/2025 Activetake 1 tablet by mouth every eight hours as needed for painibuprofen 800 MG tablet Take 800 mg by mouth every 8 (eight) hours if needed for moderate pain ActiveMAGNESIUM GLYCINATE ADVANCED PO (20 sources)take 1 tablet by mouth once dailyMAGNESIUM GLYCINATE ADVANCED PO Take 1 tablet by mouth Daily Activemeclizine hydrochloride 25 mg oral tablet (20 sources)Antiemetictake 1 tablet by mouth three times daily as needed for dizzinessmeclizine (Antivert) 25 MG tablet Take 25 mg by mouth 3 (three) times a day as needed for dizzinessActivemetaxalone 800 mg oral tablet (20 sources)Start: 24-45-5337syiu 1 tablet by mouth at bedtimemetaxalone (Skelaxin) 800 MG tablet Indications: Chronic low back pain without sciatica, unspecified back pain laterality TAKE 1 TABLET BY MOUTH IN THE MORNING, IN THE EVENING AND BEFORE BEDTIME 90 tablet 3 06/20/2024 ActiveStart: 08-06-0636mwtf 1 tablet by mouth in the morning, then take 1 tablet by mouth in the evening, then take 1 tablet by mouth at bedtimemetaxalone (Skelaxin) 800 MG tablet Indications: Chronic low back pain without sciatica, unspecified back pain laterality Take 1 tablet (800 mg) by mouth in the morning and 1 tablet (800 mg) in the evening and 1 tablet (800 mg) before bedtime. 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 (CMS/HCC) TAKE 1 TABLET EVERY MORNING WITH A MEAL 100 tablet3 03/23/2024 09/09/2024 Discontinued (Ineffective)Mis Natural Products (OSTEO BI-FLEX ADV TRIPLE ST PO) (9 sources) End: 85-26-4052zdps 1 tablet by mouth once dailyMisc Natural Products (OSTEO BI- FLEX ADV TRIPLE ST PO) Take 1 tablet by mouth Daily 09/09/2024 Discontinued (Duplicate order)take 1 tablet by mouth once dailyMisc Natural Products (OSTEO BI-FLEX ADV TRIPLE ST PO) Take 1 tablet by mouth Daily ActivePARoxetine hydrochloride 20 mg oral tablet (20 sources)Serotonin Reuptake InhibitorStart: 11-10-2023 End: 80-24-0820VABkdnxzrb (Paxil) 20 MG tablet Indications: Depressive disorder TAKE 1 TABLET EVERY MORNING 90 tablet 3 08/31/2024 Activemicroencapsulated potassium chloride 10 meq extended release oral tablet (20 sources)Start: 10-90-2602qexsbudlr chloride CR (Klor-Con M10) 10 MEQ ER tablet Indications: Localized swelling of both lowerlegs TAKE 1 TABLET EVERY DAY (DO NOT CRUSH OR CHEW) 90 tablet 3 01/09/2025 ActiveStart: 22-80-5710ioql 1 tablet by mouth once dailypotassium chloride CR (Klor-Con M10) 10 MEQ ER tablet Indications: Localized swelling of both lowerlegs Take 1 tablet (10 mEq) by mouth Daily Do not crush or chew. 90 tablet 3 03/07/2024 ActivepredniSONE 10 mg oral tablet (2 sources)Start: 05-11-2025 End: 35-89-0333krjs 4 tablets by mouth once daily, then take 3 tablets by mouth once daily, then take 2 tablets bymouth once daily, then take 1 tablet by mouth once dailypredniSONE (Deltasone) 10 MG tablet Indications: Acute eczema Take 4 tablets (40 mg) by mouth Dailyfor 4 days, THEN 3 tablets (30 mg) Daily for 4 days, THEN 2 tablets (20 mg) Daily for 4 days, THEN 1 tablet (10 mg) Daily for 4 days. 40 tablet 05/11/2025 05/27/2025 Activepregabalin 50 mg oral capsule (16 sources)Start: 62-27-7890qadk 1 capsule by mouth in the morningpregabalin (Lyrica) 50 MG capsule Take 50 mg by mouth in the morning and 50 mg before bedtime. 08/12/2024 Activerivaroxaban 20 mg oral tablet (3 sources)Factor Xa InhibitorStart: 06-07-2024 End: 06-10-1369hpex 1 tablet by mouth at mealtimerivaroxaban (Xarelto) 20 MG tablet Take 20 mg by mouth in the evening. Take with meals 06/07/2024 09/09/2024 Discontinued (Other)SEMAGLUTIDE, 1 MG/DOSE, SC (3 sources)Start: 09-09-2024 End: 82-43-5335zyaiuh 0.25 mg by subcutaneous injection every weekSEMAGLUTIDE, 1 MG/DOSE, SC Inject 0.25 mg under the skin 1 (one) time per week 09/09/2024 01/26/2025 Discontinued (Side effects)Start: 48-57-1407qskndv 0.25 mg by subcutaneous injection every weekSEMAGLUTIDE, 1 MG/DOSE, SC Inject 0.25 mg under the skin 1 (one) time per week 09/09/2024 ActiveSemaglutide-Weight Management 0.25 MG/0.5ML solution auto-injector (4 sources)Start: 09-09-2024 End: 12-87-5783iaince 0.25 mg by subcutaneous injection every weekSemaglutide- Weight Management 0.25 MG/0.5ML solution auto-injector Indications: Morbid (severe) obesity due to excess calories (CMS-HCC) , Body mass index (BMI) 40.0- 44.9, adult (CMS-HCC) , Paroxysmal atrial fibrillation (HCC) Inject 0.25 mg under the skin 1 (one) time per week 09/09/2024 01/26/2025 DiscontinuedStart: 71-93-5584wwvhpj 0.25 mg by subcutaneous injection every weekSemaglutide-Weight Management 0.25 MG/0.5ML solution auto-injector Indications: Morbid (severe) obesity due to excess calories (CMS/HCC) , Body mass index (BMI) 40.0-44.9, adult (CMS/HCC) , Paroxysmal atrial fibrillation (CMS/HCC) Inject 0.25 mg under the skin 1 (one) time per week 09/09/2024 Activewarfarin sodium 5 mg oral tablet (20 sources)Vitamin K AntagonistStart: 23-78-9138qqgbzbzt (Coumadin) 5 MG tablet Indications: Longstanding persistent atrial fibrillation (HCC) TAKE1 TABLET ONE TIME DAILY, EXCEPT TAKE 2 TABLETS ON SUNDAYS AND WEDNESDAYS 120 tablet 3 05/11/2025 ActiveStart: 08-06-3607rmbxuxak (Coumadin) 5 MG tablet Indications: Longstanding persistent atrial fibrillation (HCC) TAKE1 TABLET ONE TIME DAILY, EXCEPT TAKE 2 TABLETS ON SUNDAYS AND WEDNESDAYS 120 tablet 3 07/21/2024 Active Start: 00-13-1213ciwzttxw (Coumadin) 5 MG tablet Indications: Longstanding persistent atrial fibrillation (CMS/HCC) TAKE 1 TABLET ONE TIME DAILY, EXCEPT TAKE 2 TABLETS ON SUNDAYS AND WEDNESDAYS 120 tablet 3 10/02/2023 Active Problems Active Problems Problem ClassificationProblemDateDocumented DateEpisodic/ChronicAdjustment disorders (20 sources)Adjustment disorder in remission; Translations: [Adjustment disorder, unspecified]Onset: 690179-38-7592EsmlkogAllnaiqqfpitjn/social admission (2 sources)Patient encounter status; Translations: [Other specified counseling] 11-56-2801HezmrhwmJubcpine reactions (4 sources)Acute eczema; Translations: [Dermatitis, unspecified]Onset: 582182-25-8218AraoowkfHurhtb (20 sources)Unspecified asthma, uncomplicated; Translations: [Asthmatic bronchitis]Onset: 035389-47-4241GdshsdtMtvzynd and circulatory congenital anomalies (20 sources)Atrial septal defect; Translations: [Atrial septal defect]Onset: 386402-08-7539TunndqzWtbzhsz dysrhythmias (20 sources)Unspecified atrial fibrillation; Translations: [Paroxysmal atrial fibrillation]Onset: 51-19-9303KmdblozTcflbtc dysrhythmias (1 source)Cardiac dysrhythmiasOnset: 65-86-7922Yottmmvmyhz and hemorrhagic disorders (20 sources)Thrombophilia; Translations: [Other thrombophilia]Onset: 03-07-2024 67-02-9803StglmylFwllpcodhc and other anemia (4 sources)Iron deficiency anemia secondary to blood loss (chronic); Translations: [IRON DEFIC ANEMIA SEC BLD LOSS CHRN]Onset: 68-62-9174Zfrsbxl Deficiency and other anemia (20 sources)Iron deficiency anemia due to blood loss; Translations: [Iron deficiency anemia secondary to blood loss (chronic)]Onset: ChronicDisorders of lipid metabolism (20 sources)Hyperlipidemia; Translations: [Hyperlipidemia, unspecified]Onset: 02-23-2023 Resolved: 070250-89-2590CffrkptChcnkqmhp hypertension (20 sources)Essential (primary) hypertension; Translations: [Essential hypertension]Onset: 109714-53-4897AhlspaeDumbg valve disorders (20 sources)Tricuspid incompetence, non-rheumatic ; Translations: [Nonrheumatic tricuspid (valve) insufficiency]Onset: 884002-85-6059PqlmwajVcxnralqpc disorders (20 sources)Other primary ovarian failure; Translations: [Decreased estrogen level]Onset: 99-49-0671TpgvgcdFgyu disorders (20 sources)Depressive disorder; Translations: [Depressive disorder]Onset: 765217-87-3187IvakmcoGblysqmotkjdow (20 sources)Unilateral primary osteoarthritis, right knee; Translations: [Bilateral primary osteoarthritis of knee]Onset: 12-06-2022 Resolved: 98-93-5045FtxmudgBbxdmuebxmtx (20 sources)Osteoporosis; Translations: [Other osteoporosis without current pathological fracture]Onset: 02-23-2023 Resolved: 499158-81-5700DjeaomdZyfqd aftercare (5 sources)Encounter for therapeutic drug level monitoring; Translations: [ENC THERAPEUTC DRUG LEVL MONITORING]Onset: 54-26-7477CnqzpdhcYlfwg aftercare (1 source)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; Translations: [INTELLIGENCE AGENT CURRNT USE ANTICOAGULANTS]Onset: 88-32-2206ClovogxzIfdsb aftercare (13 sources)Drug therapy finding; Translations: [[facility] (current) use of anticoagulants]Onset: 496788-20-8505EcuxxlnuHtqih and ill-defined heart disease (20 sources)Bilateral enlargement of atria; Translations: [Cardiomegaly]Onset: 159810-92-3680YosntunDattv and ill-defined heart disease (1 source)Left atrial dilatation; Translations: [Cardiomegaly]Onset: 02-23-2023 23-66-2445XgunylrUiofj connective tissue disease (1 source)Fibromyalgia; Translations: [FIBROMYALGIA]Onset: 39-29-8654Irctquxo Other lower respiratory disease (1 source)Dyspnea, unspecified; Translations: [Dyspnea, unspecified]Onset: 80-62-0893VtllsstyArrtj nervous system disorders (1 source)Other chronic pain; Translations: [OTHER CHRONIC PAIN]Onset: 85-96-6547IfgslljJaqhs non-traumatic joint disorders (4 sources)Pain in left knee; Translations: [PAIN IN LEFT KNEE]Onset: 12-02-2022 EpisodicOther non-traumatic joint disorders (1 source)Pain in right knee; Translations: [PAIN IN RIGHT KNEE]Onset: 21-15-7545MqethoxyGsafi nutritional; endocrine; and metabolic disorders (7 sources)Morbid obesity; Translations: [Morbid (severe) obesity due to excess calories]Onset: 642778-52-8628FbmxenjNfgpl nutritional; endocrine; and metabolic disorders (20 sources)Body mass index 40+ - severely obese; Translations: [Body mass index (BMI) 40.0-44.9, adult]Onset: 244768-17-7957LjmrmttBarqq nutritional; endocrine; and metabolic disorders (19 sources)Obesity caused by energy imbalance; Translations: [Morbid (severe) obesity due to excess calories]Onset: 822434-94-9216GejfirzWfdgo skin disorders (4 sources)Skin irritation ; Translations: [Other skin changes]09-09-2024 EpisodicPulmonary heart disease (20 sources)Pulmonary hypertension; Translations: [Pulmonary hypertension, unspecified]Onset: 958426-73-2286SwwtgauLsmsukrd codes; unclassified (1 source)Sleep apnea, unspecified; Translations: [SLEEP APNEA UNSPECIFIED] Onset: 07-27-4525OoxyvxmDpkchycr codes; unclassified (20 sources)Obstructive sleep apnea syndrome; Translations: [Obstructive sleep apnea (adult) (pediatric)]Onset: 601731-62-5011NssxckgUdysvmvicovi (2 sources)Dyspnea, unspecified / R06.00(ICD-9)Onset: 28-85-9252Vayqbpjbiccq (1 source)Tachycardia, unspecified / R00.0(ICD-9)Onset: 02-08-2018 Past or Other Problems Problem ClassificationProblemDateDocumented DateEpisodic/ChronicDiabetes mellitus without complication (20 sources)Impaired glucose tolerance; Translations: [Impaired glucose tolerance (oral)]Onset: 913982-05-2789KjzgqmlcCgck disorders (6 sources)Mood disordersOnset: 648243-53-3499Qgfscraha of unspecified nature or uncertain behavior (20 sources)Neoplasm of uncertain behavior of skin of hand; Translations: [Neoplasm of uncertain behavior of skin]Onset: 03-07-2024 Resolved: 128304-63-9821LljtukvoOahpi bone disease and musculoskeletal deformities (1 source)Other specified disorders of bone density and structure, left thigh; Translations: [OTH D/O BONE DEN STRUCT LT THIGH]Onset: 94-16-5856TmxohqtzGmgjz connective tissue disease (20 sources)Fibromyalgia; Translations: [Fibromyalgia]Onset: 02-23-2023 50-99-9554CyamqmzcHautg connective tissue disease (20 sources)Muscle pain; Translations: [Myalgia, unspecified site]Onset: 398363-47-8018ZcevizhjRrppb ear and sense organ disorders (20 sources)Bilateral tinnitus; Translations: [Tinnitus, bilateral]Onset: 187709-52-8492AxbvnmhnIkilx lower respiratory disease (20 sources)Dyspnea on exertion; Translations: [Other forms of dyspnea]Onset: 624515-02-0871WfqtecepMbltx screening for suspected conditions (not mental disorders or infectious disease) (20 sources)Encounter for screening mammogram for malignant neoplasm of breast; Translations: [Patient encounter status]Onset: 01-23-2022 Resolved: 404546-49-0559LgifdkdtNidkp skin disorders (20 sources)Bilateral localized swelling of lower legs; Translations: [Localized swelling, mass and lump, lowerlimb, bilateral]Onset: EpisodicResidual codes; unclassified (1 source)Family history of malignant neoplasm of breast; Translations: [FAMILY HX MALIG NEOPLASM OF BREAST]Onset: 00-75-7351AfizmuzxAcfehrzvtghs (20 sources)Onset: Results Test NameValueInterpretationReference RangeFacilityCBC (INCLUDES DIFF/PLT)on 36-63-2402Rzoaityum (Bld) [#/Vol]0.042 10*3/uLNormal0-200[facility] Comment on above:Performed By: #### 6399, 5616, 7600, 24680 #### [facility] [address], [address] [place] [address] Piece Dyer: Steve Chávez MDBasophils/100 WBC (Bld)0.8 %NormalQuest DiagnosticsComment on above:Performed By: #### 6399, 5616, 7600, 33486 #### [facility] [address], [address] [place] [address] Piece Dyer: Steve Chávez MDEosinophils (Bld) [#/Vol]0.312 10*3/uLNormal 15-500Quest DiagnosticsComment on above:Performed By: #### 6399, 5616, 7600, 94842 #### [facility] of [address], [address] [place] [address] Piece Dyer: Steve Chávez MDEosinophils/100 WBC (Bld)6.0 %NormalQuest DiagnosticsComment on above:Performed By: #### 6399, 5616, 7600, 27440 #### [facility] of [place] [address] Piece Dyer: Steve Chávez MDErythrocyte distribution width (RBC) [Ratio] 14.1 %Xyftue88.0-15.0[facility] DiagnosticsComment on above:Performed By: #### 6399, 5616, 7600, 81682 #### [facility] of [address], [address] [place] [address] Piece Dyer: Steve Chávez MDHematocrit (Bld) [Volume fraction]38.4 %Normal 35.0-45.0[facility] DiagnosticsComment on above:Performed By: #### 6399, 5616, 7600, 68511 #### [facility] [place] [address] Piece Dyer: Steve Chávez MDHemoglobin (Bld) [Mass/Vol]12.0 g/dLNormal 11.7-15.5Quest DiagnosticsComment on above:Performed By: #### 6399, 5616, 7600, 84052 #### [facility] of [address], [address] [place] [address] Piece Dyer: Steve Chávez MDLymphocytes (Bld) [#/Vol]0.915 10*3/uLNormal 850-3900Quest DiagnosticsComment on above:Performed By: #### 6399, 5616, 7600, 10729 #### [facility] of [place] [address] Piece Dyer: Steve Chávez MDLymphocytes/100 WBC (Bld)17.6 %NormalQuest DiagnosticsComment on above:Performed By: #### 6399, 5616, 7600, 25556 #### [facility] of [address], [address] [place] [address] Piece Dyer: Steve BARBOSACH (RBC) [Entitic mass]27.9 sjPikpjk40.0-33.0 [facility]osticsComment on above:Performed By: #### 6399, 5616, 7600, 64442 #### [facility] of [address], [address] [place] [address] Piece Dyer: Steve BARBOSACHC (RBC) [Mass/Vol]31.3 g/dLLow32.0-36.0 [facility]osticsComment on above:Result Comment: For adults, a slight decrease in the calculated MCHC value (in the range of 30 to 32 g/dL) is most likely not clinically significant; however, it should be interpreted with caution in correlation with other red cell parameters and the patient's clinical condition.Performed By: #### 6399, 5616, 7600, 32697 #### [facility] of [place] [address] Piece Dyer: Steve BARBOSACV (RBC) [Entitic vol]89.3 rJKhjkqa21.0-100.0 [facility]osticsComment on above:Performed By: #### 6399, 5616, 7600, 27758 #### [facility] of [address], [address] [place] [address] Piece Dyer: Steve Chávez MDMonocytes (Bld) [#/Vol]0.525 10*3/uLNormal 200-950Quest DiagnosticsComment on above:Performed By: #### 6399, 5616, 7600, 16255 #### [facility] of [place] [address] Piece Dyer: Steve Chávez MDMonocytes/100 WBC (Bld)10.1 %NormalQuest DiagnosticsComment on above:Performed By: #### 6399, 5616, 7600, 85010 #### [facility] of [place] [address], [address] [place] [address] Piece Dyer: Steve Kimophilguillermo (Bld) [#/Vol]3.406 10*3/uLNormal 1500-7800Quest DiagnosticsComment on above:Performed By: #### 6399, 5616, 7600, 01882 #### [facility] of [address], [address] [place] [address] Piece Dyer: Steve Kimophilguillermo/100 WBC (Bld)65.5 %NormalQuest DiagnosticsComment on above:Performed By: #### 6399, 5616, 7600, 72912 #### [facility] of [address], [address] [place] [address] Piece Dyer: Steve Chávez MDPlatelet mean volume (Bld) [Entitic vol]10.9 fLNormal7.5-12.5Quest DiagnosticsComment on above:Performed By: #### 6399, 5616, 7600, 52245 #### [facility] of [address], [address] [place] [address] Piece Dyer: Steve Chávez MDPlatelets (Bld) [#/Vol]234 10*3/uLNormal 140-400Quest DiagnosticsComment on above:Performed By: #### 6399, 5616, 7600, 52646 #### [facility] of [address], [address] [place] [address] Piece Dyer: Steve Chávez MDRBC (Bld) [#/Vol]4.30 10*6/uLNormal3.80-5.10 [facility]osticsComment on above:Performed By: #### 6399, 5616, 7600, 00332 #### [facility] of [place] [address] [address] , [address] [place] [address] Piece Dyer: Steve Chávez MDWBC (Bld) [#/Vol]5.2 10*3/uLNormal3.8-10.8 [facility]osticsComment on above:Performed By: #### 6399, 5616, 7600, 50352 #### [facility] of [place] [address] Piece Dyer: Steve Chávez MDCOMPREHENSIVE METABOLIC PANELon 04-18-2025 Albumin [Mass/Vol]4.3 g/dLNormal3.6-5.1Quest DiagnosticsComment on above: Performed By: #### 6399, 5616, 7600, 25090 #### [facility] of [address], [address] [place] [address] Piece Dyer: Steve Chávez MDAlbumin/Globulin [Mass ratio]1.9 {ratio}Normal 1.0-2.5Quest DiagnosticsComment on above:Performed By: #### 6399, 5616, 7600, 41200 #### [facility] of [address], [address] [place] [address] Piece Dyer: Steve Chávez MDALP [Catalytic activity/Vol]94 U/OVxnase63-704 Quest DiagnosticsComment on above:Performed By: #### 6399, 5616, 7600, 05769 #### [facility] of [place] [address] Piece Dyer: Steve Chávez MDALT [Catalytic activity/Vol]15 U/LNormal6-29 Quest DiagnosticsComment on above:Performed By: #### 6399, 5616, 7600, 14165 #### [facility] of [place] [address] Piece Dyer: Steve Chávez MDAST [Catalytic activity/Vol]17 U/RVwtnpz29-85 Quest DiagnosticsComment on above:Performed By: #### 6399, 5616, 7600, 90165 #### [facility] of [place] [address] Piece Dyer: Steve Chávez MDBilirubin [Mass/Vol]0.7 mg/dLNormal0.2-1.2 Quest DiagnosticsComment on above:Performed By: #### 6399, 5616, 7600, 98811 #### [facility] of [address], [address] [place] [address] Piece Dyer: Steve Chávez MDBUN/CREATININE RATIOSEE NOTE:Normal6-22Quest DiagnosticsComment on above:Result Comment: Not Reported: BUN and Creatinine are within reference range.Performed By: #### 6399, 5616, 7600, 63341 #### [facility] of [address], [address] [place] [address] Piece Dyer: Steve Chávez MDCalcium [Mass/Vol]9.1 mg/dLNormal8.6-10.4Quest DiagnosticsComment on above:Performed By: #### 6399, 5616, 7600, 78902 #### [facility] of [address], [address] [place] [address] Piece Dyer: Steve Chávez MDChloride [Moles/Vol]103 mmol/WGmzqir13-997 Quest DiagnosticsComment on above:Performed By: #### 6399, 5616, 7600, 94750 #### [facility] of [place] [address] Piece Dyer: Steve Chávez MDCO2 [Moles/Vol]32 mmol/VTjccdq01-18Jexiu DiagnosticsComment on above:Performed By: #### 6399, 5616, 7600, 00015 #### [facility] of [place] [address] Piece Dyer: Steve HERNANDEZreatinine [Mass/Vol]0.71 mg/dLNormal0.60-1.00 Quest DiagnosticsComment on above:Performed By: #### 6399, 5616, 7600, 25050 #### [facility] of [address], [address] [place] [address] Piece Dyer: Steve Chávez MDGFR/1.73 sq M.predicted among non-blacks MDRD (S/P/Bld) [Vol rate/Area]90 mL/min/{1.73_m2}Normal> OR = 60[facility] Comment on above:Performed By: #### 6399, 5616, 7600, 22230 #### [facility] of [place] [address] Piece Dyer: Steve Chávez MDGlobulin (S) [Mass/Vol]2.3 g/dLNormal1.9-3.7 Quest DiagnosticsComment on above:Performed By: #### 6399, 5616, 7600, 11292 #### [facility] of [place] [address] Piece Dyer: Steve Chávez MDGlucose [Mass/Vol]91 mg/fYOjyxny79-08Hwbgl DiagnosticsComment on above:Result Comment: Fasting reference intervalPerformed By: #### 6399, 5616, 7600, 26730 #### [facility] of [address], [address] [place] [address] Piece Dyer: Steve Chávez MDPotassium [Moles/Vol]4.7 mmol/LNormal3.5-5.3 Quest DiagnosticsComment on above:Performed By: #### 6399, 5616, 7600, 64504 #### [facility] [place] [address] Piece Dyer: Steve Chávez MDProtein [Mass/Vol]6.6 g/dLNormal6.1-8.1Quest DiagnosticsComment on above:Performed By: #### 6399, 5616, 7600, 57744 #### [facility] of [place] [address] Piece Dyer: Steve Chávez MDSodium [Moles/Vol]140 mmol/WRyufcd833-591Kgvxv DiagnosticsComment on above:Performed By: #### 6399, 5616, 7600, 08072 #### [facility] of [address], [address] [place] [address] Piece Dyer: Steve Chávez MDUrea nitrogen [Mass/Vol]15 mg/dLNormal7-25 Quest DiagnosticsComment on above:Performed By: #### 6399, 5616, 7600, 26966 #### [facility] [address], [address] [place] [address] Piece Dyer: Steve Chávez MDHEMOGLOBIN A1con 98-91-5920XiR5i (Bld) [Mass fraction]6.1 %High<5.7Quest DiagnosticsComment on above:Result Comment: For someone without known diabetes, a hemoglobin [...] hemoglobin A1c for diagnosis of diabetes for children.Performed By: #### 6399, 5616, 7600, 68308 #### [facility] [address], [address] [place] [address] Piece Dyer: Steve MICHAUD, TIBC AND FERRITIN PANELon 04-18-2025% FHJHWJANUY43 % (calc)Ztz66-30Kyjbu DiagnosticsComment on above:Order Comment: FASTING:YES FASTING: YESPerformed By: #### 6399, 5616, 7600, 68573 #### [facility] [address], [address] [place] [address] Piece Dyer: Steve Chávez MDFerritin [Mass/Vol]18 ng/tBBqbkri46-318Zhiux DiagnosticsComment on above:Order Comment: FASTING:YES FASTING: YESPerformed By: #### 6399, 5616, 7600, 35155 #### [facility] [address], [address] [place] [address] Piece Dyer: Steve Merati MDIRON BINDING DMCUMXAU671 mcg/dL (calc)Normal 250-450Quest DiagnosticsComment on above:Order Comment: FASTING:YES FASTING: YESPerformed By: #### 6399, 5616, 7600, 33496 #### [facility] [address], [address] [place] [address] Piece Dyer: Steve MICHAUD, TOTAL60 mcg/oQJivucn92-772Tqkul DiagnosticsComment on above:Order Comment: FASTING:YES FASTING: YESPerformed By: #### 6399, 5616, 7600, 57720 #### [facility] [address], [address] [place] [address] Piece Dyer: Steve Chávez MDLIPID PANEL, [facility] 86-65-7979Btzeuiqdenz [Mass/Vol]173 mg/dLNormal<200Quest DiagnosticsComment on above:Performed By: #### 6399, 5616, 7600, 86110 #### [facility] [address], [address] [place] [address] Piece Dyer: Steve Chávez MDCholesterol in HDL [Mass/Vol]59 mg/dLNormal> OR = 50Quest DiagnosticsComment on above:Performed By: #### 6399, 5616, 7600, 39892 #### [facility] [address], [address] [place] [address] Piece Dyer: Steve Chávez MDCholesterol in LDL [Mass/Vol]99 mg/dLNormal Quest DiagnosticsComment on above:Result Comment: Reference range: <100 Desirable range <100 mg/dL for primary prevention; <70 mg/dL for patients with CHD or diabetic patients with > or = 2 CHD risk factors. LDL-C is now calculated using the Emiliano calculation, which is a validated novel method providing better accuracy than the Friedewald equation in the estimation of LDL-C. Vitaliy WILLARD et al. BRIELLE. 2013;310(19): 6742-4500 (http://education.[facility].ScubaTribe/faq/WBF383)Performed By: #### 6399, 5616, 7600, 19494 #### [facility] [address], [address] [place] [address] Piece Dyer: Steve HERNANDEZholesterol.total/Cholesterol in HDL [Mass ratio]2.9 {ratio}Normal<5.0Quest DiagnosticsComment on above:Performed By: #### 6399, 5616, 7600, 30959 #### [facility] [address], [address] [place] [address] Piece Dyer: Steve HADLEY HDL GNLKAWQCVOP614 mg/dL (calc)Normal<130 Quest DiagnosticsComment on above:Result Comment: For patients with diabetes plus 1 major ASCVD risk factor, treating to a non-HDL-C goal of <100 mg/dL (LDL-C of <70 mg/dL) is considered a therapeutic option.Performed By: #### 6399, 5616, 7600, 31202 #### [facility] [address], [address] [place] [address] Piece Dyer: Steve Chávez MDTriglyceride [Mass/Vol]63 mg/dLNormal<150Quest DiagnosticsComment on above:Performed By: #### 6399, 5616, 7600, 69010 #### [facility] [place] [address] Piece Dyer: Steve Chávez MDALBUMIN, RANDOM URINE W/CREATININEon 69-54-0396QBYQEYS, URINE<0.2NormalSee Note:Quest DiagnosticsComment on above: Result Comment: Reference Range: Reference Range Not establishedPerformed By: #### 6517 #### [facility] [place] [address] Piece Dyer: Steve Chávez MDALBUMIN/CREATININE RATIO, RANDOM URINENOTE Normal<30Quest DiagnosticsComment on above:Result Comment: NOTE: The urine albumin value is [...] a patient to be within a diagnostic category.Performed By: #### 6517 #### [facility] [address], [address] [place] [address] Piece Dyer: Steve Chávez MDCreatinine (U) [Mass/Vol]17 mg/aDCdm23-411 Quest DiagnosticsComment on above:Performed By: #### 6517 #### [facility] [address], [address] [place] [address] Piece Dyer: Steve Chávez MDLaboratory - Cytologyon 26-65-8389Nqrkzhytkwo observation Cyto stain Nom (Cvx)2.3[facility] Panel Informationon 08-79-0417Amlngjeqgvrrls and review of laboratory resultsNormMarshfield Clinic HospitalLaboratory - Hematology and Cell countson 52-44-0717OxH8g (Bld) [Mass fraction]5.8 %[facility] SystemNo Panel Informationon 01-26-2025 Interpretation and review of laboratory resultsAbnormMilwaukee County Behavioral Health Division– MilwaukeeXR DEXA AXIAL SKELETONon 01-29-3114[address] [address] XRay Report Signed Patient: LESLIE LOPEZ MR#: [id number] : 1950 Acct:[id number] Age/Sex: 73 / F ADM Date: 09/02/24 Loc: RAD Attending Dr: VENECIA COLON Ordering Physician: VENECIA COLON Date of Service: 09/02/24 Procedure(s): XR DEXA axial skeleton Accession Number(s): [id number] cc: VENECIA COLON [address] [address] Patient Name: LESLIE LOPEZ MRN: [id number] date: 1950 Sex: F Assigned Patient Location: RAD Current Patient Location: Accession/Order Number: [id number] Exam Date: 09/02/2024 11:05 Report Date: 09/05/2024 08:35 At the request of: VENECIA COLON Procedure: XR DEXA axial skeleton EXAMINATION: XR [...] prevention and treatment of osteoporosis. Osteoporos Int. 2021;33(10):4685-9302. doi: 10.1007/p75153-241-87451-z. Epub 2021Nov 21. Erratum in: Osteoporos Int. 2021Feb 20;: PMID: [id number]; PMCID: [id number]. Electronically authenticated by: RADHA TRINIDAD Date: 09/05/2024 08:35 Dictated By: Radha Trinidad M.D. Signed By: 09/05/2437 DD/ TD/TT: Special Agent Secret Service:TBHRadiology, Radiologist, - 09/05/2024 [place] [address] XRay Report Signed Patient: LESLIE LOPEZ MR#: [id number] : 1950 Acct:[id number] Age/Sex: 73 / F ADM Date: 09/02/24 Loc: [facility] Attending Dr: VENECIA COLON Ordering Physician: VENECIA COLON Date of Service: 09/02/24 Procedure(s): XR DEXA axial skeleton Accession Number(s): [id number] cc: VENECIA COLON [place] [address] Patient Name: LESLIE LOPEZ MRN: [id number] date: 1950 Sex: F Assigned Patient Location: [facility] Current Patient Location: Accession/Order Number: [id number] Exam Date: 09/02/2024 11:05 Report Date: 09/05/2024 08:35 At the request of: VENECIA COLON Procedure: XR DEXA axial skeleton EXAMINATION: XR [...] prevention and treatment of osteoporosis. Osteoporos Int. 2021;33(10):2165-7624. doi: 10.1007/n95303-065-13798-d. Epub 2021Nov 21. Erratum in: Osteoporos Int. 2021Feb 20;: PMID: 39673686; PMCID: [id number]. Electronically authenticated by: RADHA TRINIDAD Date: 09/05/2024 08:35 Dictated By: Radha Trinidad M.D. Signed By: 09/05/2437 DD/ 4 TD/TT: Special Agent Secret Service: SHOLA HealthcareRadiology Study observation (narrative)[facility] HealthcareXR DEXA AXIAL SKELETONOrdered By: Radiologist Radiology on 47-45-4106KCQX Healthcare Work Phone: srLT PROTHROMBIN TIME INR W/O COUMon 01-71-8885FY Coag (PPP) [Time]11 sNOMS [facility] HospitalTB INR1.04NODC HealthcareComment on above: DESIRED INR: 2.0-3.0 CONDITIONS NOT LISTED BELOW 2.5-3.5 FOR PROSTHETIC HEART VALVE REPLACEMENT 2.5-3.5 RECURRENT [facility]BOSIS [facility] PROTHROMBIN TIME INR W/O COUMon 07-12-2024 Interpretation and review of laboratory resultsAbnormalLDS HOSPITAL HealthcarePT Coag (PPP) [Time]13.3 sHighNOMS HealthcareTB INR1.29NODC HealthcareComment on above: DESIRED INR: 2.0-3.0 CONDITIONS NOT LISTED BELOW 2.5-3.5 FOR PROSTHETIC HEART VALVE REPLACEMENT 2.5-3.5 RECURRENT [facility]BOSIS [facility] HealthcareOffice Visiton 10-35-7008Lfnusc-up [id number] Leslie Lopez 1950 F Date Provider Department Center 06/07/2024 CARLINE SHRESTHA [facility] Family History Problem Relation Age of Onset No Known Problems Mother No Known Problems Father Family Status - Relation Status Age at Mother Father Level of Service:[address] [place] OFFICE/OUTPATIENT NEW MODERATE MDM 45 MINUTESNoal [facility] HospitalPROTIMEon 73-93-9405STJ Coag (PPP) [Relative time]1.02 {INR}NormalThe [facility] Medical CenterComment on above:Performed By: #### PT #### [facility] [address] [place] [address] Dr. Justyn Murry GUIDELINESSEE BELOWMetroHealth Parma Medical CenterComment on above:Result Comment: DESIRED INR: 2.0 - 3.0 CONDITIONS NOT LISTED BELOW 2.5 - 3.5 FOR PROSTHETIC HEART VALVE REPLACEMENT 2.5 - 3.5 RECURRENT THROMBOSIS Performed By: #### PT #### [facility] [address] [place] [address] [address] Justyn Bender Coag (PPP) [Time]10.8 sNormal9.0-11.6ThSouthwest General Health Center Comment on above:Performed By: #### PT #### [facility] [address] [place] [address] [address] Justyn Ying AUTO DIFFon 34-62-2271LZXY #0.0 103/ulNormal0.0-0.1The [facility] HospitalComment on above:Performed By: #### CBC #### [facility] [address] [place] [address] Dr. Justyn QuintanillaBasophils/100 WBC (Bld)0.5 %Normal0.2-2.0The [facility] Comment on above:Performed By: #### CBC #### [facility] [address] [place] [address] Dr. Justyn Stern #0.1 103/ulNormal0.0-0.7The [facility] Medical CenterComment on above: Performed By: #### CBC #### [facility] [address] [place] [address] Dr. Justyn Cottonosinophils/100 WBC (Bld)2.9 %Normal0.9-7.0The [facility] Comment on above:Performed By: #### CBC #### [facility] [address] [place] [address] Dr. Justyn Cottonrythrocyte distribution width (RBC) [Ratio]20.7 %Critically high 11.0-15.0The [facility] Parma Medical CenterComment on above:Performed By: #### CBC #### [facility] [address] [place] [address] Dr. Justyn QuintanillaHematocrit (Bld) [Volume fraction]29.7 %Critically low36.0-48.0 The [facility] Parma Medical CenterComment on above:Performed By: #### CBC #### [facility] [address] [place] [address] Dr. Justyn QuintanillaHemoglobin (Bld) [Mass/Vol]9.0 g/dLCritically low12.0-16.0The [facility]health SystemComment on above:Performed By: #### CBC #### [facility] [address] [place] [address] Dr. Justyn Arora #0.01 10e3/ulNormal0.00-0.03The [facility]ma Medical CenterComment on above:Performed By: #### CBC #### [facility] [address] [place] [address] Dr. Justyn Arora %0.2 %Normal0.0-0.5The [facility]ma Medical CenterComment on above: Performed By: #### CBC #### [facility] [address] [place] [address] Dr. Justyn Kay #1.2 103/ulNormal1.2-3.8The [facility]ma Medical CenterComment on above:Performed By: #### CBC #### [facility] [address] [place] [address] Dr. Justyn Dasilvahocytes/100 WBC (Bld)29.0 %Kfgbwy56.5-60.0The [facility]ma Medical CenterComment on above:Performed By: #### CBC #### [facility] [address] [place] [address] Dr. Justyn Mott DIFF REQNONormalThe [facility] Medical CenterComment on above: Performed By: #### CBC #### [facility] [address] [place] [address] Dr. Justyn Mosley (RBC) [Entitic mass]28.6 pyBqwwyj05.7-34.0The [facility]ma Medical CenterComment on above:Performed By: #### CBC #### [facility] [address] [place] [address] Dr. Justyn Hsieh (RBC) [Mass/Vol]30.3 g/hHTvjqcf49.9-35.2The [facility]ma Medical CenterComment on above:Performed By: #### CBC #### [facility] [address] [place] [address] Dr. Justyn Madrigal (RBC) [Entitic vol]94.3 aJPtrqkk60.0-99.0The [facility] Medical CenterComment on above:Performed By: #### CBC #### [facility] [address] [place] [address] Dr. Justyn Cooper #0.4 103/ulNormal0.3-0.8The [facility] Medical CenterComment on above:Performed By: #### CBC #### [facility] [address] [place] [address] Dr. Justyn Castañedaocytes/100 WBC (Bld)9.8 %Normal1.7-12.0The [facility] Comment on above:Performed By: #### CBC #### [facility] [address] [place] [address] Dr. Justyn JacobsUT #2.3 103/ulNormal1.4-6.5The [facility] Medical CenterComment on above:Performed By: #### CBC #### [facility] [address] [place] [address] Dr. Justyn Jacobsutrophils/100 WBC (Bld)57.6 %Svascd01.0-75.0The [facility] Medical CenterComment on above:Performed By: #### CBC #### [facility] [address] [place] [address] Dr. Justyn QuintanillaPlatelet mean volume (Bld) [Entitic vol]9.2 fLCritically low 9.5-13.5The [facility] Medical CenterComment on above:Performed By: #### CBC #### [facility] [address] [place] [address] Dr. Justyn QuintanillaPLT361 103/yhJaoepo980-124Brj [facility] Medical CenterComment on above: Performed By: #### CBC #### [facility] [address] [place] [address] Dr. Justyn QuintanillaRBC3.15 106/ulCritically low4.20-5.40The [facility] Medical CenterComment on above:Performed By: #### CBC #### [facility] [address] [place] [address] Dr. Justyn QuintanillaWBC4.1 103/ulNormal4.0-11.0The [facility] Medical CenterComment on above: Performed By: #### CBC #### [facility] [address] [place] [address] Dr. Justyn QuintanillaMG MAMM SCREEN 3D JACQUELINE CADon 29-71-9934FB MAMM SCREEN 3D JACQUELINE CAD Patient: LESLIE LOPEZ Exam Date: 01/08/2022 : 1950 Gender:F Ordering : DR VENECIA COLON M.D. Admission #: [id number] Family : Order #: [id number] CLICK HERE TO VIEW EXAM RADIOLOGY REPORT [...] breast cancer at age 81. LOCATION: [facility] BREAST COMPOSITION: Scattered areas fibroglandular [...] by: Radha Trinidad MD on 01/23/2022 at 08:05[facility] CenterXR DEXA BONE DENSITYon 67-33-7750PK DEXA BONE DENSITYEXAMINATION: XR DEXA BONE DENSITY, 01/08/2022 10:20 AM [...] Electronically authenticated by: CINTHYA PHAM Date: 2022-01-08 18:00[facility] CenterComplete Blood Count with Auto Diffon 83-42-5160Juubouqlg (Bld) [#/Vol]0.05 10*3/uLNormal0.00-0.20NoMorrow County Hospital SpecialistComment on above:Performed By: #### VITD, LIPD, smear, CBCAD, CMP #### [facility] [address] [place], [place] [id number]/100 WBC (Bld)1.3 %NormalNoMorrow County Hospital SpecialistComment on above:Performed By: #### VITD, LIPD, smear, CBCAD, CMP #### [facility] [address] [place], [place] [id number] (Bld) [#/Vol]0.08 10*3/uLNormal0.02-0.50NoMorrow County Hospital SpecialistComment on above:Performed By: #### VITD, LIPD, smear, CBCAD, CMP #### [facility] [address] [place], [place] [id number]/100 WBC (Bld)2.1 %NormalNoMorrow County Hospital SpecialistComment on above:Performed By: #### VITD, LIPD, smear, CBCAD, CMP #### [facility] [address] [place], [place] [id number] distribution width (RBC) [Ratio]17.8 %High 11.0-15.0[facility] SpecialistComment on above:Performed By: #### VITD, LIPD, smear, CBCAD, CMP #### [facility] [address] [place], [place] [id number] (Bld) [Volume fraction]30.4 %Low35.0-47.0NoMorrow County Hospital SpecialistComment on above:Performed By: #### VITD, LIPD, smear, CBCAD, CMP #### [facility] [address] [place], [place] [id number] (Bld) [Mass/Vol]8.7 g/dLLow11.6-15.5NoMorrow County Hospital SpecialistComment on above:Performed By: #### VITD, LIPD, smear, CBCAD, CMP #### [facility] [address] [place], [place] [id number] (Bld) [#/Vol]1.0 10*3/uLNormal0.9-3.9NoMorrow County Hospital SpecialistComment on above:Performed By: #### VITD, LIPD, smear, CBCAD, CMP #### [facility] [address] [place], [place] [id number]/100 WBC (Bld)25.1 %NormalKettering Health SpecialistComment on above:Performed By: #### VITD, LIPD, smear, CBCAD, CMP #### [facility] [address] [place], [place] [id number] (RBC) [Entitic mass]21.1 pgLow27.0-33.0NoMorrow County Hospital SpecialistComment on above:Performed By: #### VITD, LIPD, smear, CBCAD, CMP #### [facility] [address] [place], [place] [id number] (RBC) [Mass/Vol]28.6 g/dLLow32.0-36.0NoMorrow County Hospital SpecialistComment on above:Performed By: #### VITD, LIPD, smear, CBCAD, CMP #### [facility] [address] [place], [place] [id number] (RBC) [Entitic vol]74 yKMmk55-953Ayssikvt [facility] SpecialistComment on above:Performed By: #### VITD, LIPD, smear, CBCAD, CMP #### [facility] [address] [place], [place] [id number] (Bld) [#/Vol]0.4 10*3/uLNormal0.2-0.9NoMorrow County Hospital SpecialistComment on above:Performed By: #### VITD, LIPD, smear, CBCAD, CMP #### [facility] [address] [place], [place] [id number]/100 WBC (Bld)9.9 %NormalKettering Health SpecialistComment on above:Performed By: #### VITD, LIPD, smear, CBCAD, CMP #### [facility] [address], [place] [id number] (Bld) [#/Vol]2.4 10*3/uLNormal1.5-7.8NoMorrow County Hospital SpecialistComment on above:Performed By: #### VITD, LIPD, smear, CBCAD, CMP #### [facility] [address], [place] [id number]/100 WBC (Bld)61.3 %NormalNoMorrow County Hospital SpecialistComment on above:Performed By: #### VITD, LIPD, smear, CBCAD, CMP #### [facility] [address] [place], [place] [id number] mean volume (Bld) [Entitic vol]10.00 fLNormal 7.50-12.50NoMorrow County Hospital SpecialistComment on above:Performed By: #### VITD, LIPD, smear, CBCAD, CMP #### [facility] [address] [place], [place] [id number] (Bld) [#/Vol]255 10*3/rKOekwne214-987Dztdbzoq [facility] SpecialistComment on above:Performed By: #### VITD, LIPD, smear, CBCAD, CMP #### [facility] [address] [place], [place] [id number] (Bld) [#/Vol]4.13 10*6/uLNormal3.90-5.20NoMorrow County Hospital SpecialistComment on above:Performed By: #### VITD, LIPD, smear, CBCAD, CMP #### [facility] [address] [place], [place] [id number]-KR78.7 uNXnwfan50.0-50.0NoMorrow County Hospital Specialist Comment on above:Performed By: #### VITD, LIPD, smear, CBCAD, CMP #### [facility] [address], [place] [id number] ReviewNormalNoMorrow County Hospital Specialist Comment on above:Performed By: #### VITD, LIPD, smear, CBCAD, CMP #### [facility] [address], [place] [id number] (Bld) [#/Vol]3.8 10*3/uLNormal3.8-11.0NoMorrow County Hospital SpecialistComment on above:Performed By: #### VITD, LIPD, smear, CBCAD, CMP #### [facility] [address] [place], [place] [id number] Metabolic Panelon 31-05-0076Senaivp [Mass/Vol] 4.1 g/dLNormal3.6-5.1[facility] SpecialistComment on above:Performed By: #### VITD, LIPD, smear, CBCAD, CMP #### [facility] [address] [place], [place] [id number]/Globulin [Mass ratio]2.0 {ratio}Normal1.0-2.5NoMorrow County Hospital SpecialistComment on above:Performed By: #### VITD, LIPD, smear, CBCAD, CMP #### [facility] [address] [place], [place] [id number] [Catalytic activity/Vol]85 U/VLhswit49-442Rifuzxcf [facility] SpecialistComment on above:Performed By: #### VITD, LIPD, smear, CBCAD, CMP #### [facility] [address] [place], [place] [id number] [Catalytic activity/Vol]12 U/LNormal6-33NoMorrow County Hospital SpecialistComment on above:Result Comment: 06/26/2021 Female reference range changed.Performed By: #### VITD, LIPD, smear, CBCAD, CMP #### [facility] [address] [place], [place] [id number] gap [Moles/Vol]15 mmol/XFhsnvf46-33Crbctmhg [facility] SpecialistComment on above:Result Comment: Effective 08/01/2019 reference range changed.Performed By: #### VITD, LIPD, smear, CBCAD, CMP #### [facility] [address] [place], [place] [id number] [Catalytic activity/Vol]18 U/LNormal9-34NoMorrow [facility] Hospital SpecialistComment on above:Performed By: #### VITD, LIPD, smear, CBCAD, CMP #### [facility] [address], [place] [id number] [Mass/Vol]0.47 mg/dLNormal0.30-1.20[facility] SpecialistComment on above:Performed By: #### VITD, LIPD, smear, CBCAD, CMP #### [facility] [address], [place] [id number]/CREA28 RatioHigh6-22NoMorrow [facility] Hospital Specialist Comment on above:Performed By: #### VITD, LIPD, smear, CBCAD, CMP #### [facility] [address] [place], [place] [id number] [Mass/Vol]9.3 mg/dLNormal8.6-10.2[facility] SpecialistComment on above:Performed By: #### VITD, LIPD, smear, CBCAD, CMP #### [facility] [address], [place] [id number] [Moles/Vol]103 mmol/CFnetrh59-212Pkobqyvg [facility] SpecialistComment on above:Performed By: #### VITD, LIPD, smear, CBCAD, CMP #### [facility] [address], [place] [id number] [Moles/Vol]27 mmol/OWqutko85-82Dxfpvxmo [facility] SpecialistComment on above:Performed By: #### VITD, LIPD, smear, CBCAD, CMP #### [facility] [address] [place], [place] [id number] [Mass/Vol]0.6 mg/dLNormal0.6-1.4[facility] SpecialistComment on above:Performed By: #### VITD, LIPD, smear, CBCAD, CMP #### [facility] [address], [place] [id number] mL/min/1.20n2Gaersc>60[facility] SpecialistComment on above:Performed By: #### VITD, LIPD, smear, CBCAD, CMP #### [facility] [address] [place], [place] [id number] mL/min/1.40s9Rmoonk>60[facility] SpecialistComment on above:Performed By: #### VITD, LIPD, smear, CBCAD, CMP #### [facility] [address] [place], [place] [id number] (S) [Mass/Vol]2.1 g/dLNormal1.9-3.7NoMorrow [facility] Hospital SpecialistComment on above:Performed By: #### VITD, LIPD, smear, CBCAD, CMP #### [facility] [address] [place], [place] [id number] [Mass/Vol]100 mg/eTFeer52-14Aulhacit [facility] SpecialistComment on above:Result Comment: For FASTING Glucose --- ADA reference ranges: Normal 65-99 mg/dl Prediabetes 100-125 Diabetes >/= 126Performed By: #### VITD, LIPD, smear, CBCAD, CMP #### [facility] [address] [place], [place] [id number] [Moles/Vol]4.8 mmol/LNormal3.5-5.5[facility] SpecialistComment on above:Performed By: #### VITD, LIPD, smear, CBCAD, CMP #### [facility] [address] [place], [place] [id number] [Mass/Vol]6.2 g/dLNormal6.1-8.1[facility]Ge[facility] SpecialistComment on above:Performed By: #### VITD, LIPD, smear, CBCAD, CMP #### [facility] [address] [place], [place] [id number] [Moles/Vol]140 mmol/IIyqgak296-521Wtedftxl [facility] SpecialistComment on above:Performed By: #### VITD, LIPD, smear, CBCAD, CMP #### [facility] [address] [place], [place] [id number] nitrogen [Mass/Vol]16 mg/dLNormal7-25[facility]Nor[facility] SpecialistComment on above:Performed By: #### VITD, LIPD, smear, CBCAD, CMP #### [facility] [address], [place] [id number] A1Con 73-99-8962HDD558.63NormalNoMorrow County Hospital SpecialistComment on above:Performed By: #### A1C #### [facility] [address] [place], [place] [id number] (Bld) [Mass fraction]5.9 %Normal4.0-6.0NoMorrow County Hospital SpecialistComment on above:Performed By: #### A1C #### [facility] [address] [place], [place] [id number] Panelon 74-58-6121Njlrboqxdvo [Mass/Vol]178 mg/dLNormal 125-200NoMorrow County Hospital SpecialistComment on above:Result Comment: Low risk < 200mg/dL Borderline risk 201-239 mg/dl High risk > or equal to 240Performed By: #### VITD, LIPD, smear, CBCAD, CMP #### [facility] [address] [place], [place] [id number] in HDL [Mass/Vol]54 mg/dLNormal>40NoMorrow County Hospital SpecialistComment on above:Result Comment: High Cardiovascular Risk HDL <40 mg/dL Low Cardiovascular Risk HDL > or equal to 60 mg/dlPerformed By: #### VITD, LIPD, smear, CBCAD, CMP #### [facility] [address] [place], [place] [id number] in LDL [Mass/Vol]111 mg/dLNormalNoMorrow County Hospital SpecialistComment on above:Result Comment: LDL ATP III CLASSIFICATION LDL less than 100 mg/dl Optimal LDL 100-129 mg/dl Near or above optimal LDL 130-159 Borderline high LDL 160-189 High LDL greater than 189 mg/dl Very HighPerformed By: #### VITD, LIPD, smear, CBCAD, CMP #### [facility] [address] [place], [place] [id number] in VLDL [Mass/Vol]13 mg/dLNoUniversity [facility] SpecialistComment on above:Performed By: #### VITD, LIPD, smear, CBCAD, CMP #### [facility] [address] [place], [place] [id number].total/Cholesterol in HDL [Mass ratio]3 {ratio} NormalKettering Health SpecialistComment on above:Performed By: #### VITD, LIPD, smear, CBCAD, CMP #### [facility] [address] [place], [place] [id number] [Mass/Vol]67 mg/zQQadlyp53-016Zevryfji [facility] SpecialistComment on above:Result Comment: TRIG ATPIII CLASSIFICATIONS TRIG less than 150 mg/dl Normal TRIG 150-199 mg/dl Borderline High TRIG 200-500 mg/dl High TRIG greather than 500 mg/dl Very HighPerformed By: #### VITD, LIPD, smear, CBCAD, CMP #### [facility] [address] [place], [place] [id number] Reviewon 94-09-4894OXE ESTAdequateNoTrumbull Regional Medical CenterComment on above:Performed By: #### VITD, LIPD, smear, CBCAD, CMP #### [facility] [address], [place] [id number] morphology finding Nom (Bld)RBC morphology review confirms RBC indicesNoUniversity [facility] SpecialistComment on above: Performed By: #### VITD, LIPD, smear, CBCAD, CMP #### [facility] [address] [place], [place] [id number] D 25-OHon 03-04-5065VMD D 25 OH48 ng/mlNormal>29 [facility] SpecialistComment on above:Result Comment: Vitamin D Status Deficiency <20 ng/mL Insufficiency 20-29 ng/mL Optimal 30-100 ng/mL Possible Toxicity >=150 ng/mLPerformed By: #### VITD, LIPD, smear, CBCAD, CMP #### [facility] [address] [place], [place] [id number] Vital Signs Date TimeVital SignValuePerforming YqmcjgoseJbjqesag81-04-0665 14:30-0400Body eaelqq581.1 Alex Colon MD Work Phone: [phone] Missouri Rural Health NetworkSnarutorlm88-35-4568 14:30-0400Body mass index (BMI) [Ratio]44.93 kg/e4WjqdlVenecia Colon MD Work Phone: [phone] [facility] Rural Health NetworkXzrmmrynir98-05-9693 14:30-0400Body .47 kgVenecia Colon MD Work Phone: [phone] [facility] Rural Health NetworkQjocjkzyyn88-13-7287 14:30-0400Diastolic blood wwawweif13 mm[Hg]Venecia Colon MD Work Phone: [phone] SystemRkqaessmcp96-91-2877 14:30-0400Heart rate80 /min Venecia Colon MD Work Phone: [phone] Missouri Rural Health NetworkSioilyvokq35-12-7516 14:30-2152JcP9% (BldA) [Mass fraction]96 %Venecia Colon MD Work Phone: [phone] [facility] Rural Health NetworkQztsepxzke98-79-6135 14:30-0400Systolic blood pdpkftel149 mm[Hg]Venecia Colon MD Work Phone: [phone] [facility] Rural Health NetworkXpybixmtoe24-09-3500 10:30-0400Body lzuvac975.1 cmIgnacia MARQUEZ Work Phone: [facility] NetworkRqkrrkaokc91-39-0932 10:30-0400Body mass index (BMI) [Ratio]44.16 kg/v8EzwgsIgnacia MARQUEZ Work Phone: [phone] [facility] Health NetworkZnczsdzvaz68-69-3814 10:30-0400Body lhozkm952.39 kgIgnacia MARQUEZ Work Phone: [facility] NetworkBsexxaxkxg82-46-0472 10:30-0400Diastolic blood zujrlbna99 mm[Hg]Ignacia MARQUEZ Work Phone: [facility] SystemSizwxcusgm67-18-0669 10:30-0400Heart rate77 /min Ignacia Hemmer PA Work Phone: [facility] SystemSrcaolwrth90-13-8237 10:30-0400Respiratory rate16 /minKaren Hemmer PA Work Phone: [facility] SystemRzxblalipx27-12-2237 10:30-3449QuS3% (BldA) [Mass fraction]96 %Ignacia Hemmer PA Work Phone: [facility] SystemFvtbvhdfni85-77-6547 10:30-0400Systolic blood sdsaedvp276 mm[Hg]Ignacia Hemmer PA Work Phone: [phone]-[address] [place], [place] [address]Donchfnjoa33-96-3461 10:45-0400Body .1 cmKaren Hemmer PA Work Phone: [phone]-3032[facility] SystemCptxvzzpdg99-46-3575 10:45-0400Body mass index (BMI) [Ratio]44.9 kg/q9Achzi Hemmer PA Work Phone: [phone]-[address] [place], [place] [address]Hxtvvlvjra94-17-0087 10:45-0400Body nloawx860.38 kgKaren Hemmer PA Work Phone: [phone]-2107[facility] SystemZayzcttugw57-20-2188 10:45-0400Diastolic blood wawzxrrc30 mm[Hg]Ignacia Hemmer PA Work Phone: [facility] SystemIdukxbopfq23-28-4256 10:45-0400Heart rate88 /min Ignacia Hemmer PA Work Phone: [phone] [place], [place] [address]Qubugtiawe80-43-1998 10:45-0400Respiratory rate16 /minKaren Hemmer PA Work Phone: [phone]-5616[facility] SystemCjnpvqourx79-93-2010 10:45-6631UaK5% (BldA) [Mass fraction]96 %Ignacia Hemmer PA Work Phone: [phone]-6204[facility] SystemYabwhgosya70-88-4541 10:45-0400Systolic blood xpjvaxjy834 mm[Hg]Ignacia Hemmer PA Work Phone: [phone])[facility]-7922[facility] SystemZwllhspbip33-71-1029 10:01-0400Body ihzucp996.1 cmKaren Hemmer PA Work Phone: [facility] SystemTcgwtfmmyt65-75-8344 10:01-0400Body mass index (BMI) [Ratio]45.2 kg/x3Xxpbf Hemmer PA Work Phone: [facility] SystemKssggeiadg97-85-6277 10:01-0400Body agksuf674.2 kgKaren Hemmer PA Work Phone: [facility] SystemHlqcvjctxa09-48-7787 10:01-0400Diastolic blood dhjfdbut46 mm[Hg]Ignacia Hemmer PA Work Phone: [facility] SystemIfsxsrqjwf84-96-0404 10:01-0400Heart rate88 /min Ignacia Hemmer PA Work Phone: [facility] SystemOpfafmibur52-26-2774 10:01-0400Respiratory rate16 /minKaren Hemmer PA Work Phone: [facility] SystemBjvewszepa58-48-7270 10:01-9514IsI1% (BldA) [Mass fraction]95 %Ignacia Hemmer PA Work Phone: [facility] SystemEcsbzwnhyr41-91-7957 10:01-0400Systolic blood egrrzbqf584 mm[Hg]Ignacia Hemmer PA Work Phone: [facility] SystemDyvrgkcyjr18-18-3454 11:02-0500Body ziqwgg332.1 cmKaren Hemmer PA Work Phone: [facility] SystemSjmlhbndkm75-77-3621 11:02-0500Body mass index (BMI) [Ratio]44.13 kg/b6Nydmy Hemmer PA Work Phone: [facility] SystemEgbwkgymcz35-71-8764 11:02-0500Body fidowo319.29 kgKaren Hemmer PA Work Phone: [facility] SystemButecnlgzg35-51-8280 11:02-0500Diastolic blood wqoechdp18 mm[Hg]Ignacia Hemmer PA Work Phone: [facility] SystemBkrymyhtuh08-35-6703 11:02-0500Heart rate66 /min Ignacia Hemmer PA Work Phone: [facility] SystemWlchenqkbi02-74-8910 11:02-0500Respiratory rate16 /minIgnacia MARQUEZ Work Phone: [facility] SystemAatrynofhs33-55-9484 11:02-4984OjT7% (BldA) [Mass fraction]97 %Ignacia MARQUEZ Work Phone: [facility] NetworkReficljrtg27-63-4947 11:02-0500Systolic blood rtwgcgyi966 mm[Hg]Ignacia MARQUEZ Work Phone: [facility] SystemCfcvdinyqh42-63-9036 10:07-0400Body bhisql521.1 Alex Colon MD Work Phone: [phone] SystemNfzekfmlsq87-76-4904 10:07-0400Body mass index (BMI) [Ratio]43.6 kg/c9NglcsVenecia Colon MD Work Phone: [facility] SystemVymrrhusfa38-23-9001 10:07-0400Body zxmjxa304.84 kgVenecia Colon MD Work Phone: [facility] SystemHkbuwirnps17-60-9012 10:07-0400Diastolic blood mm[Hg]Venecia Colon MD Work Phone: [facility] SystemLilfokbmhi40-03-4062 10:07-0400Heart rate90 /min Veencia Colon MD Work Phone: [facility] NetworkIkhocqumxg40-68-4860 10:07-0669WsF1% (BldA) [Mass fraction]98 %Venecia Colon MD Work Phone: [facility] SystemYrehygkkxy27-96-8536 10:07-0400Systolic blood vjpvgyse220 mm[Hg]Venecia Colon MD Work Phone: [facility] Encounters Encounter DateEncounter TypeCare ProviderFacilityStart: 05-11-2025 End: 37-35-5483Gfgzyu outpatient visit 25 minutesVenecia Colon MD Work Phone: [facility] MedinceComment on above:Acute eczema (Primary Dx)Start: 05-11-2025 End: 20-44-0152qjdrpdggqhJQUGI M ALDANot AvailableStart: 05-09-2025 End: 91-04-9734Gwkebhkzw encounterVenecia Colon MD Work Phone: [facility] [place] [facility] MedinceComment on above:chapped lips Start: 04-26-2025 End: 30-58-6847Ulvbpeprn encounterVenecia Colon MD Work Phone: [facility] [place] [facility] MedinceStart: 04-17-2025 End: 22-40-2121Ifssba Louise MARQUEZ Work Phone: [facility] [place] [facility] MedinceStart: 04-17-2025 End: 47-44-5631Hpadmv Louise MARQUEZ Work Phone: [facility] [place] [facility] MedinceStart: 04-17-2025 End: 29-70-3419Qbdjypn encounter Miguel MARQUEZ Work Phone: [facility] [place] [facility] MedinceComment on above:Medicare annual wellness visit, subsequent (Primary Dx); ACP (advance care planning); Essential hypertension ; Paroxysmal atrial fibrillation (HCC); Localized swelling of both lower legs; Glucose intolerance (impaired glucose tolerance); Iron deficiency anemia due to chronic blood loss; Other thrombophilia (HHS-HCC); Mixed hyperlipidemia ; Skin irritation; Moderate persistent asthmatic bronchitis without complication (HCC); Decreased estrogen level; Recurrent major depressive disorder, in full remission ; Fibromyalgia; Adjustment disorder in remission ; Biatrial enlargement; Morbid (severe) obesity due to excess calories (CMS-HCC); Myalgia; Obstructive sleep apnea syndrome; Primary osteoarthritis of both knees; Primary osteoarthritis involving multiple joints; Tinnitus of both ears; Dyspnea on exertion; Body mass index (BMI) 40.0-44.9, adult (CMS-HCC); Atrial septal defect (HHS-HCC); Nonrheumatic tricuspid valve regurgitation; Age-related osteoporosis without current pathological fracture ; Pulmonary hypertension, unspecified (HCC); AnticoagulatedStart: 04-17-2025 End: 91-14-6630wxsbuorigaMSBCEJessie Ro AvailableStart: 02-28-2025 End: 93-34-2718Oqmevv Louise Berman Hemmer PA Work Phone: [facility] [place] [facility] MedinceStart: 02-28-2025 End: 71-92-3056Ssscza Louise Berman Hemmer PA Work Phone: [facility] [place] [facility] MedinceStart: 02-28-2025 End: 90-44-9194Ytsygt outpatient visit 25 minutesIgnacia Pablomer PA Work Phone: [facility] [place] [facility] MedinceComment on above:Paroxysmal atrial fibrillation (HCC) (Primary Dx); Fibromyalgia; Glucose intolerance (impaired glucose tolerance); Anticoagulated; Primary osteoarthritis of both kneesStart: 02-28-2025 End: 26-76-6028noteafkswoPOOKD M HEMMERNot AvailableStart: 01-26-2025 End: 10-34-2763Yimthw Louise Berman Hemmer PA Work Phone: [facility] FMStart: 01-26-2025 End: 57-58-2172Iowicj Louise Berman Hemmer PA Work Phone: [facility] FMStart: 01-26-2025 End: 79-02-5838Yhcovr outpatient visit 25 minutesIgnacia Pablomer PA Work Phone: [facility] FMComment on above:Essential hypertension (Primary Dx); Glucose intolerance (impaired glucose tolerance); Fibromyalgia; Primary osteoarthritis of both kneesStart: 01-26-2025 End: 33-97-2936idgppjqnziINYZW Cullen HEMMERNot AvailableStart: 09-09-2024 End: 17-09-0082Jsdkuo Louise Berman Hemmer PA Work Phone: [facility] FMStart: 09-09-2024 End: 28-54-6675Fetkha Louise Berman Hemmer PA Work Phone: [facility] FMStart: 09-09-2024 End: 46-94-4124Zjaufd outpatient visit 25 minutesIgnacia Pablomer PA Work Phone: [facility] FMComment on above:Age-related osteoporosis without current pathological fracture (CMS/HCC) (Primary Dx); Skin irritation; Pulmonary hypertension, unspecified (CMS/HCC); Morbid (severe) obesity due to excess calories (CMS/HCC); Body mass index (BMI) 40.0-44.9, adult (CMS/HCC); Essential hypertension (CMS/HCC); Paroxysmal atrial fibrillation (CMS/HCC); Glucose intolerance (impaired glucose tolerance)Start: 09-09-2024 End: 23-44-3823wzskioxtfcMETRF M HEMMERNot AvailableStart: 09-05-2024 End: 05-76-5307Mjvcbbqbr Result Nick Colon MD Work Phone: [facility] External Department UnsolicitedStart: 09-05-2024 End: 54-71-2088Nqmiexhlt Result Nick Colon MD Work Phone: [facility] External Department UnsolicitedStart: 08-02-2024 End: 33-52-0161Gtbarygoq Result EncounterGeneric External Data ProviderNOMS External Department UnsolicitedStart: 08-02-2024 End: 60-48-7948Jztlafyqb Result EncounterGeneric External Data ProviderNOMS External Department UnsolicitedStart: 07-12-2024 End: 80-29-1010Ipfywkxxe Result EncounterGeneric External Data ProviderNOMS External Department UnsolicitedStart: 07-12-2024 End: 03-61-3840Ymbxzzzbd Result EncounterGeneric External Data ProviderNOMS External Department UnsolicitedStart: 06-07-2024 End: 56-20-6448uyzygnhvpnUOWBPremier Health Upper Valley Medical Centertart: 04-04-2024 End: 04-58-0628Ybagjb Tessa Colon MD Work Phone: [facility] FMStart: 04-04-2024 End: 01-66-4760Bqvbrp Tessa Colon MD Work Phone: [facility] FMStart: 04-04-2024 End: 96-74-3522Pehgq of hemosiderin, Jo Colon MD Work Phone: [facility] HealthcareStart: 04-04-2024 End: 55-62-5556Zhnbacb encounter procedureVenecia Colon MD Work Phone: noDC HealthcareComment on above:Routine general medical examination at health care facility (Primary Dx); Abnormal glucose tolerance test; Benign essential hypertension (CMS/HCC); Medicare annual wellness visit, subsequent; Paroxysmal atrial fibrillation (CMS/HCC); Elevated LDL cholesterol level (CMS/HCC); Estrogen deficiency; Essential hypertension (CMS/HCC); Pulmonary hypertension, unspecified (CMS/HCC); Atrial septal defect; Nonrheumatic tricuspid valve regurgitation; Biatrial enlargementStart: 03-24-2023 End: 95-21-4173Qsrwk of hemosiderin, Jo Colon MD Work Phone: noDC HealthcareStart: 03-24-2023 End: 79-90-1350Ckazwmv encounter procedureIgnacia MARQUEZ Work Phone: noDC HealthcareStart: 58-67-8306ijqocquhsiYVARAZAUGMCM LAKSHMIPATHY .Facility:B9Oqqho: 12-16-2022 End: 88-83-4919bptdqrwzxpPHAKAQJKCISM LAKSHMIPATHY .Facility:S1Gubuk: 12-02-2022 End: 94-61-5082xpyxseclgmGKWBEXLDKRNH LAKSHMIPATHY .Facility:Q4Afuaw: 11-24-2022 End: 23-33-8520admhgtovqvQI RUGEN ALDAFacility:X0Jgzvi: 10-27-2022 End: 74-01-5622nksvcjwdazHC RUGEN ALDAFacility:A8Iygcy: 09-24-2022 End: 66-28-9506ncyxdubzfyTJ RUGEN ALDAFacility:L4Kceye: 08-27-2022 End: 06-62-7946twnbcrkyyeAW RUGEN ALDAFacility:N6Fndeg: 07-28-2022 End: 93-00-9779xvyhxinmebTY RUGEN ALDAFacility:N8Gefhs: 06-26-2022 End: 21-63-8734drpczpjvufAK RUGEN ALDAFacility:G0Pypbl: 05-27-2022 End: 65-88-0537ldyxbdvqksCX RUGEN ALDAFacility:V3Vfylc: 05-22-2022 End: 26-37-0455dhvvofsuulUV RUGEN ALDAFacility:T2Jdqzm: 04-27-2022 End: 21-83-3866tmfsmqvzteMKPKHQ H FAWWADFacility:B0Bacdt: 03-27-2022 End: 56-60-6544spvpuxwdncTSFWDA H FAWWADFacility:Z9Vjqnx: 03-18-2022 End: 45-83-3340sinbaqpfwpYM RUGEN ALDAFacility:X9Pjqmm: 02-24-2022 End: 90-95-2387vhjthdlqhrCGVCBQ H FAWWADFacility:U3Lrhlb: 01-24-2022 End: 34-53-6240gweohstsjeRDOEJA H FAWWADFacility:Q5Zwinr: 01-08-2022 End: 33-58-5654agemcesonyOX RUGEN ALDAFacility:M9Cmoaq: 55-59-1425Mplmvls encounterHASSAN IBRAHIMFacility:1532Start: 25-84-2040Exyxwqa encounterHASSAN IBRAHIMFacility:1532Start: 48-50-3138Xccestn encounterFacility:9507Start: 11-27-2017 End: 25-21-3529UnrojnoanwJNYNLFO PHYSICIANFacility:[facility] Procedures DateProcedureProcedure DetailPerforming ClinicianStart: 54-31-8510Gywhlhxezup timeIgnacia MARQUEZ Work Phone: Start: 28-84-9033Hdflkefmcp glycosylated l4lSsleoIgncaia MARQUEZ Work Phone: Start: 55-40-8381ZD DEXA AXIAL SKELETONVenecia Colon MD Work Phone: Start: 58-42-3802VRRJBD PROTHROMBIN TIME INR W/O COUM Generic External Data ProviderStart: 79-36-5350QGOYVJ PROTHROMBIN TIME INR W/O COUMGeneric External Data ProviderStart: 09-90-6446WvrxabacgbzRhonqhr Provider Start: 20-82-0786EogzeworzhkZijli Alda MD Work Phone: Plan of Treatment DateCare ActivityDetailAuthorStart: 28-15-8676Lsyftssw screeningDiabetes: Retinopathy ScreeningNODC HealthcareStart: 09-22-2026Medicare Annual Wellness (AWV)Medicare Annual Wellness (AWV)[facility] HealthcareStart: 51-03-8333Cujjwkbhl for malignant neoplasm of breastMammogramNOMS HealthcareComment on above:Postponed from 04/05/2025 (Patient Refused)Start: 46-79-1733Azwsd screening for protein Diabetes: Urine Protein ScreeningNODC HealthcareStart: 94-56-4613Mlvatwhct for malignant neoplasm of colonColorectal Cancer ScreeningNODC HealthcareComment on above:Postponed from 1951 (Patient Refused)Start: 82-35-0129Mlsaysepta A1c measurementDiabetes: Hemoglobin Z5LHTOM HealthcareStart: 05-11-2025 End: 44-20-1034Sgkvwdj encounter fxlzojizz93/16/2025 2:30 PM EDT Office Visit [facility] [address] [facility] [address] [place] [address] Venecia Colon MD [address] [facility] [address] [place] [address] [facility]ITALGu[facility] HospitalnceStart: 04-28-2025 Hemoglobin A1c measurementDiabetes: Hemoglobin Q4YJOZI HealthcareStart: 04-17-2025 End: 71-79-4855Atyaboo encounter tkamuddkb41/22/2025 10:30 AM EDT [facility] [address] [facility] [address] [place] [address] Ignacia Felipe PA [address] [facility] [address] [place] [address] ArrivedMICHELLEMS [place] [facility] HospitalnceComment on above:ArrivedStart: 58-25-2710Qdeciptyk for malignant neoplasm of breast MammogramNODC HealthcareStart: 09-09-2025Medicare Annual Wellness (AWV)Medicare Annual Wellness (AWV)[facility] HealthcareStart: 02-19-2133Lpjeykiwd vaccination Influenza Vaccine (#1)[facility] HealthcareStart: 02-28-2025 End: 75-40-6578Hkvnwlaeiirp/Creatinine panel in random UrineMicroalbumin / creatinine, urine ratio Lab Routine Glucose intolerance (impaired glucose tolerance)Expected: 02/28/2025 (Approximate), Expires: 02/28/2026[facility] Work Phone: Comment on above:Expected: 02/28/2025 (Approximate), Expires: 02/28/2026Start: 02-28-2025 End: 38-48-0171Bntyseg encounter procedureNOMS CI FMComment on above:Arrived Start: 01-26-2025 End: 63-52-3878Lhrfqqn encounter rccoipnzr37/03/2025 10:00 AM EDT Office Visit [facility] [address] [facility] [address] [place] [address] Ignacia Felipe PA [address] [facility] [address] [place] [address] ArrivedNODC CI FMComment on above:ArrivedStart: 22-90-9158Anyzurqoi for malignant neoplasm of colonNOMS HealthcareStart: 73-04-0104Rgswb screening for proteinDiabetes: Urine Protein ScreeningNODC HealthcareStart: 09-09-2024 End: 21-05-2402Fpgxmih encounter aetgkcxdn55/14/2025 11:00 AM EST Office Visit [facility] [address] [facility] [address] [place] [address] Ignacia Felipe PA [address] [facility] [address] [place] [address] ArrivedNODC CI FMComment on above:ArrivedStart: 47-00-0648Swlivcgzt for malignant neoplasm of breastMammogramNODC Healthcare Start: 04-04-2024 End: 54-48-0722GGS W Auto Differential panel - BloodCBC and differential Lab Routine Medicare annual wellness visit, subsequent Paroxysmal atrial fibril lation (CMS/HCC) Elevated LDL cholesterol level (CMS/HCC) Expected: 04/04/2024 (Approximate), Expires: 04/04/2025[facility] Work Phone: Comment on above:Expected: 04/04/2024 (Approximate), Expires: 04/04/2025Start: 04-04-2024 End: 01-09-6026Lsibdepxmezfh metabolic 2000 panel - Serum or PlasmaComprehensive metabolic panel Lab Routine Medicare annual wellness visit, subsequent Paroxysmal atrial fibrillation (CMS/HCC) Elevated LDL cholesterol level (CMS/HCC) Expected: 04/04/2024 (Approximate), Expires: 04/04/2025[facility] Comment on above:Expected: 04/04/2024 (Approximate), Expires: 04/04/2025Start: 04-04-2024 End: 83-01-5565BSH Skeletal system Views for bone densityDEXA bone density Imaging Routine Estrogen deficiency Expected: 04/04/2024, Expires: 04/04/2025 [facility] HealthcareComment on above:Expected: 04/04/2024, Expires: 04/04/2025Start: 04-04-2024 End: 73-58-3351Fhvnr 1996 panel - Serum or PlasmaLipid panel Lab Routine Medicare annual wellness visit, subsequent Elevated LDL cholesterol level (C MS/HCC) Expected: 04/04/2024 (Approximate), Expires: 04/04/2025[facility] Comment on above:Expected: 04/04/2024 (Approximate), Expires: 04/04/2025Start: 04-04-2024 End: 96-78-5790Fedtxkw encounter /09/2024 10:30 AM EDT Office Visit [facility] [address] [facility] [address] [place] [id number] Venecia Colon MD [address] [facility] [address] [place] [address] [facility] FMComment on above:ArrivedStart: 03-27-2024 Influenza vaccinationInfluenza Vaccine (#1)[facility] HealthcareStart: 03-24-2024 Medicare Annual Wellness (AWV)Medicare Annual Wellness (AWV)[facility] Start: 56-40-3062Rrmcinsbon A1c measurementDiabetes: Hemoglobin C7DEZWA HealthcareStart: 12-29-9239Fgvingex screeningDiabetes: Retinopathy ScreeningLDS HOSPITAL HealthcareStart: 06-35-4060Gcgfpphss for malignant neoplasm of colonLDS HOSPITAL HealthcareCBC W Auto Differential panel - BloodCBC and differential Lab Routine Medicare annual wellness visit, subsequent Essential hypertension Paroxysmal atrial fibrillation (HCC) Localized swelling of both lower legs Iron deficiency anemia due to chronic blood loss Other thrombophilia (HHS-HCC) Mixed hyperlipidemia Ordered: 04/17/2025[facility] Work Phone: Comment on above:Ordered: 04/17/2025omprehensive metabolic 2000 panel - Serum or PlasmaComprehensive metabolic panel Lab Routine Medicare annual wellness visit, subsequent Essential hypertension Paroxysmal atrial fibrillation (HCC) Localized swelling of both lower legs Glucose intolerance (impaired glucose tolerance) Mixed hyperlipidemia Ordered: 04/17/2025[facility] HealthcareComment on above:Ordered: 04/17/2025Ferritin [Mass/volume] in Serum or PlasmaFerritin Lab Routine Medicare annual wellness visit, subsequent Iron deficiency anemia due to chronic blood loss Ordered: 04/17/2025[facility] HealthcareComment on above:Ordered: 04/17/2025Hemoglobin A1c/Hemoglobin.total in BloodHemoglobin A1c Lab Routine Medicare annual wellness visit, subsequent Glucose intolerance (impairedglucose tolerance) Ordered: 04/17/2025[facility] HealthcareComment on above:Ordered: 04/17/2025Iron + transferrin + TIBCIron + transferrin + TIBC Lab Routine Medicare annual wellness visit, subsequent Iron deficiency anemia due to chronic blood loss Ordered: 04/17/2025 [facility] HealthcareComment on above:Ordered: 04/17/2025Lipid 1996 panel - Serum or PlasmaLipid panel Lab Routine Medicare annual wellness visit, subsequent Essential hypertension Paroxysmal atrial fibrillation (HCC) Glucose intolerance (impaired glucose tolerance) Mixed hyperlipidemia Ordered: 04/17/2025[facility] HealthcareComment on above:Ordered: 04/17/2025 Immunizations Immunization DateImmunizationNotesCare JxasuubhAuaxxscr82-52-9967jcuirfqfk, high dose seasonal, preservative-freeIgnacia Felipe PA Work Phone: [facility] Work Phone: [phone]xog virus vaccine, unspecified formulationIgnacia MARQUEZ Work Phone: [facility] SystemQqsyytqbtv48-11-4998Rscyvzzfj, Seasonal, Quadrivalent, AdjuvantedVenecia Colon MD Work Phone: [facility] SystemDmkuyicluw26-96-0138zlnbfjoka virus vaccine, unspecified formulationVenecia Colon MD Work Phone: [facility] SystemJtfiyqlxql66-67-0265Ajltxxzpp, Seasonal, Quadrivalent, AdjuvantedVenecia Colon MD Work Phone: [phone] [place], [place] [address]Jvouehdpih74-66-8575uzixbaoff, high dose seasonal, preservative-freeVenecia Colon MD Work Phone: [facility] SystemXkpwokpmup37-23-0099Eyzxzumnz, High-dose Seasonal, Quadrivalent, Preservative FreeVenecia Colon MD Work Phone: [facility] SystemWlcshpxpjp05-88-3354Koalzehgw, Seasonal, Quadrivalent, AdjuvantedVenecia Colon MD Work Phone: [phone] [place], [place] [address]Umcsbpfljf14-93-3247qplducqsg, high dose seasonal, preservative-freeVenecia Colon MD Work Phone: [phone] [place], [place] [address]Rirqhexaxo89-13-6911hdeswyrnbdxw polysaccharide vaccine, 23 Radha Colon MD Work Phone: [phone] [place], [place] [address]Wgzjdlsvqs33-64-0921jnjoqidyowwd polysaccharide vaccine, 23 Radha Colon MD Work Phone: [facility] SystemFzofasmbcs85-15-6813akezyfc toxoid, reduced diphtheria toxoid, and acellular pertussis vaccine, adsorbedVenecia Colon MD Work Phone: [facility] SystemNetmecvuhm07-58-0412acedzlnpp, high dose seasonal, preservative-freeVenecia Colon MD Work Phone: [phone] [place], [place] [address]Tqpjimdfbi08-72-2959ukgkjiyafqgm conjugate vaccine, 13 Radha Colon MD Work Phone: [facility] SystemKtjsrgwzqf40-32-5873tbatziosj, high dose seasonal, preservative-freeVenecia Colon MD Work Phone: [facility] SystemYhnhzblyhl92-65-1620gnztaqc toxoid, reduced diphtheria toxoid, and acellular pertussis vaccine, adsorbedVenecia Colon MD Work Phone: [facility] SystemYlwqkjviin88-73-6973krmhzyoo influenza, intradermal, preservative freeVenecia Colon MD Work Phone: [facility] SystemPimynwdtaz90-82-3812bwhwmnfwc, seasonal, injectable, preservative freeVenecia Colon MD Work Phone: [facility] SystemHqnuizewbn25-00-0626dsfubjm and diphtheria toxoids, adsorbed, preservative free, for adult use (2 Lf of tetanus toxoid and 2 Lf of diphtheria toxoid)Venecia Colon MD Work Phone: [facility] Payers DatePayer CategoryPayerPolicy [id number] [id number] 2017Medicare [id number] [id number] [id number] 2.0.1.432348.3.57[id number] 2.0.1.115676.3.57[id number] 2.16.840.1.508846.3.57[id number] 2.16.840.1.632971.3.57[id number] 2.16.840.1.990441.3.57[id number] 2.16.840.1.778149.3.57[id number] 2.16.840.1.666980.3.57[id number] 2..840.1.464236.3.57[id number] 2.840.1.354140.3.57[id number] 2.840.1.293152.3.57[id number] 2.840.1.454888.3.57[id number] 2..840.1.333487.3.57[id number] 2..840.1.403359.3.57[id number] 2..840.1.734863.3.579.2.86667-31-2394Mtxhxul5879969 2..840.1.865650.3.579.[id number] 2.16.840.1.653918.3.57[id number] 2.840.1.102363.3.57[id number] 2.0.1.222324.3.57[id number] 2.0.1.104706.3.57[id number] 2.0.1.016950.3.579.[id number] 2.0.1.722797.3.579.2.[id number] 2.0.1.128[id number] Social History DateTypeDetailFacilityStart: 85-81-2372Xtbrcex smoking status NHISNever smoked tobaccoNOMS HealthcareStart: 73-96-0207Ilmzzxa use and exposureSmokeless tobacco non-userNOMS HealthcareStart: 04-04-2024 End: 75-02-4180Kacqqlshd beverage intakeLifetime non-drinker (finding)[facility] HealthcareStart: 10-14-2023 End: 68-31-8653Zqkbwwx of Social functionNOMS Healthcare Work Phone: Start: 10-14-2023 End: 57-65-0804X2445 Health LiteracyN[facility] Work Phone: Start: 76-16-0073Gnj often do you need to have someone help you when you read instructions, pamphlets, or other written material from your doctor or pharmacy [SILS]NeverN[facility] Work Phone: Within the last year, have you been afraid of your partner or ex-partner?NoNOMS HealthcareAre you now , , , , never or living with a partner?Never marriedN[facility]S Healthcare How often to you have a drink containing alcohol?NeverNOMS HealthcareDo you feel stress - tense, restless, nervous, or anxious, or unable to sleep at night because yourmind is troubled all the time - these days [OSQ]Not at allDeaconess Incarnate Word Health System(I/We) worried whether (my/our) food would run out before (I/we) got money to buy more.Never trueLDS HOSPITAL HealthcareStart: 83-50-9177Trkxjys Comment caffeine: chocolate, coffee,soda,teaNOMS HealthcareStart: 83-69-8359Iab assigned at birthNot on [facility] Functional Status StvkHsgubwfbmhQuiailSyzsptkx36-74-7941Vhiiahx Health Questionnaire 2 item (PHQ- 2) [Reported][facility] SystemGzjskrbkfl94-29-6204Rwvdxhh Health Questionnaire 2 item (PHQ- 2) [Reported][facility] SystemNtajpipmxv02-67-7195Vkyosdt Health Questionnaire 2 item (PHQ- 2) [Reported][facility] SystemSljkxfjncm19-68-1120Qlfdwkp Health Questionnaire 2 item (PHQ- 2) [Reported][facility] Clinical Notes 12-02-2022 to 05-11-2025 Note Date & UzhwQtcsOnrgdwub34-02-8499 History of Present illness Narrative* Venecia Colon MD - 05/11/2025 2:54 PM EDTAssociated Problem(s): Acute eczema Add over the counter HC I discussed with patient that while on prednisone, do not take any NSAIDs like Ibuprofen, Naprosyn,Alleve or motrin. Watch for any side effects like abdominal pain and nausea. Take the prednisone with food or milk. Prednisone may increase appetite. While on prednisone, watch for any sugar elevations. * Venecia Colon MD - 05/11/2025 2:30 PM EDT Images from the original note were not included. Attached media from the original note were not included. HPI Mouth Lesions Additional comments: Chapped lips Last edited by Estefani Dacosta MA on 05/11/2025 12:01 PM. Subjective Patient ID: Leslie Lopez is a [...] Wt 270 lb SpO2 96% BMI 44.93 kg/m Smoking Status Never BSA 2.37 m Review of Systems Constitutional: Negative for chills [...] No follow-ups on file. documented in this encounterDeaconess Incarnate Word Health SystemXolkggdoqv38-80-0992 Telephone encounter Note* Telephone Encounter - Kylah Stinson - 05/09/2025 3:06 PM EDT Scheduled [facility] SystemEitasgttdo17-34-8536 Miscellaneous Notes* Telephone Encounter - Kylah Stinson - 05/09/2025 [...] pt is requesting rx [facility] to see if it helps her lips documented in this encounterDeaconess Incarnate Word Health SystemHbnzthgbiv89-18-2853 Telephone encounter Note* Telephone Encounter - Mariaa White LPN - 05/09/2025 11:04 AM EDT Can you please call pt and advise her dr colon would like her to have an appt [facility] SystemZqzbslcozf38-47-3693 Telephone encounter Note* Telephone Encounter - Mariaa White LPN - 05/09/2025 9:05 AM EDT Pt called states she had terrible chapped lips last year and discussed at one of her visits was advised if it continued there was something ( a cream she thought) that could be sent in to use, pt is requesting rx be sent to [facility] to see if it helps her lips [facility] SystemUwrpffcnvm84-35-1373 Telephone encounter Note* Telephone Encounter - Estefani Dacosta MA - 04/27/2025 3:50 PM EDT Yes this was sent to [facility] SystemIbecwarkby12-58-1736 Miscellaneous Notes* Telephone Encounter - Estefani Dacosta MA - 04/27/2025 3:50 PM EDT Yes this was sent to [facility] * Telephone Encounter - Kylah Stinson - 04/26/2025 10:33 AM EDT Patient called stating that her part for the prolia would cost over 900 dollars so she is decliningthat at this time documented in this encounterDeaconess Incarnate Word Health SystemSuhraymvri89-52-1588 Telephone encounter Note* Telephone Encounter - Kylah Stinson - 04/26/2025 10:33 AM EDT Patient called stating that her part for the prolia would cost over 900 dollars so she is decliningthat at this time [facility] SystemSjzryfcelo64-27-0140 History of Present illness Narrative* JIMMY Huynh - 04/17/2025 10:30 AM EDT Subjective Patient ID: Leslie Lopez is a 74 y.o. female who presents for Medicare Annual Wellness Visit Subsequent. Lips started swelling/cracking 10 days ago, she has not changed anything. She has been taking an OTC allergy pill and that has helped a little. States increasing the Cymbalta to BID helped with her Fibromyalgia pain. Did get a Rollator. Medicare Wellness Over the past 2 weeks, how often have you been bothered by any of the following problems? Little interest or pleasure in doing things: Not at all Feeling down, depressed, or hopeless: Not at all Patient Health Questionnaire-2 Score: 0 Over the past 2 weeks, how often have you been bothered by any of the following problems? Trouble falling or staying asleep, or sleeping too much: Not at all Feeling tired or having little energy: Not at all Poor appetite or overeating: Not at all Feeling bad about yourself - or that you are a failure or have let yourself or your family down: Not at all Trouble concentrating on things, such as reading the newspaper or watching television: Not at all Moving or speaking so slowly that other people could have noticed? Or the opposite - being so fidgety or restless that you have been moving around a lot more than usual.: Not at all Thoughts that you would be better off or hurting yourself in some way: Not at all Patient Health Questionnaire-9 Score: 0 Barrera Fall Risk History of [...] minutes 3 or more days a week?: No How confident are you that you can control and manage most of your health problems?: Very confident Can you mange your money, credit cards and accounts, pay bills and taxes?: Yes Vision Screening: Yes, no gross abnormalities Hearing Screening: Yes, no gross abnormalities Cognitive Screening Self Assessment: No overt cognitive deficiency is apparent by direct observation Three Word Registration: Banana, [place], Chair Clock Drawing: Normal Clock - 2 Three Word Recall: All 3 words correct - 3 Total Score (0-5 Points): 5 Pain Assessment Pain Score: 5 - Moderate pain Advance Care Planning Do you have a living will?: Yes Do you have a medical power of sports attorney?: Yes Current Outpatient Medications on File Prior to Visit Medication Sig Dispense Refill fexofenadine (Keren) 60 MG tablet Take 60 mg by mouth in the morning and 60 mg before bedtime. acetaminophen-codeine (Tylenol w/ Codeine #3) 300-30 MG [...] NOT CRUSH OR CHEW. 200 capsule 3 furosemide (Lasix) 20 MG tablet TAKE 1 TABLET TWICE DAILY 180 tablet 3 Glucosamine-Chondroitin (OSTEO BI-FLEX REGULAR STRENGTH PO) Take 1 tablet by mouth Daily (Patient not taking: Reported on 04/17/2025) ibuprofen 800 MG tablet Take 1 tablet [...] SUNDAYS AND WEDNESDAYS 120 tablet 3 [DISCONTINUED] DULoxetine (Cymbalta) [address] capsule Take 1 capsule (30 mg) by mouth in the morning and 1 capsule (30 mg) before bedtime. Do not crush or chew. 60 capsule 2 No current facility-administered medications on file prior [...] KENALOG INJECTION;Disease:RIGHT KNEE SPRAIN Visit Vitals BP 116/74 Pulse 77 Resp 16 Ht 5' 5 Wt 265 lb 6.4 oz SpO2 96% BMI 44.16 kg/m Smoking Status Never BSA 2.35 m Review of Systems Constitutional: Negative for chills, fatigue and fever. HENT: Negative for congestion, ear pain, rhinorrhea and sore throat. See HPI Eyes: Negative for pain, discharge and visual disturbance. Respiratory: Negative for cough, shortness of breath and wheezing. Cardiovascular: Negative for chest pain, palpitations and leg swelling. Gastrointestinal: Negative for abdominal pain, constipation, diarrhea, nausea and vomiting. Genitourinary: Negative for difficulty urinating, dysuria and frequency. Musculoskeletal: Positive for myalgias (Improved). Negative for arthralgias and back pain. Skin: Negative for rash. Neurological: Negative for dizziness and numbness. Psychiatric/Behavioral: Negative for sleep disturbance. The patient is not nervous/anxious. Objective Physical Exam Constitutional: General: She is not in acute distress. Appearance: She is well-developed. She is obese. HENT: Head: Normocephalic and atraumatic. Right Ear: Tympanic membrane and ear canal normal. Left Ear: Tympanic membrane and ear canal normal. Nose: Nose normal. Mouth/Throat: Mouth: Mucous membranes are moist. Pharynx: No posterior oropharyngeal erythema. Eyes: General: No scleral icterus. Extraocular Movements: Extraocular movements intact. Conjunctiva/sclera: Conjunctivae normal. Pupils: Pupils are equal, round, and reactive to light. Neck: Vascular: No carotid bruit. Cardiovascular: Rate and Rhythm: Normal rate. Rhythm irregularly irregular. Heart sounds: Normal heart sounds. No murmur heard. Pulmonary: Effort: Pulmonary effort is normal. No respiratory distress. Breath sounds: Normal breath sounds. No wheezing, rhonchi or rales. Abdominal: General: Bowel sounds are normal. There is no distension. Palpations: Abdomen is soft. Tenderness: There is no abdominal tenderness. There is no guarding. Musculoskeletal: General: No swelling or deformity. Normal range of motion. Cervical back: Normal range of motion and neck supple. No tenderness. Skin: General: Skin is warm and dry. Capillary Refill: Capillary refill takes less than 2 seconds. Findings: Erythema and rash present. Comments: Skin beneath lower lip with mild confluent erythema, dry Neurological: General: No focal deficit present. Mental Status: She is alert and oriented to person, place, and time. Cranial Nerves: No cranial nerve deficit. Sensory: No sensory deficit. Motor: No weakness. Gait: Gait abnormal (Antalgic). Deep Tendon Reflexes: Reflexes normal. Psychiatric: Mood and Affect: Mood normal. Behavior: Behavior normal. Thought Content: Thought content normal. Judgment: Judgment normal. Assessment & Plan 1. Medicare annual wellness visit, subsequent (Primary) Reviewed all relevant preventative screenings with the patient in detail. Medicare Wellness form completed and will be scanned into patient's chart. All needed testing was ordered. Will continue withyearly Medicare Wellness exams. - CBC and differential - Comprehensive metabolic panel - Hemoglobin A1c - Lipid panel - Iron + transferrin + TIBC - Ferritin 2. ACP (advance care planning) Patient willing to discuss ACP. Pt has Living Will and DPOA in place. 3. Essential hypertension Patient's blood pressure is currently well controlled. Continue with current medications and I willcontinue to monitor. Goal BP remains less than 130/80. - CBC and differential - Comprehensive metabolic panel - Lipid panel 4. Paroxysmal atrial fibrillation (HCC) The patient is seeing a medical secretary receptionist for this condition, treatment is deferred to that specialist. Correspondence from that specialist and any available testing were reviewed during today's visit. - CBC and differential - Comprehensive metabolic panel - Lipid panel 5. Localized swelling of both lower legs Stable at this time. Continue Lasix and Potassium as prescribed. Elevate legs when possible. - CBC and differential - Comprehensive metabolic panel 6. Glucose intolerance (impaired glucose tolerance) This is a chronic medical condition that is stable since last assessment. Will continue to monitor with routine labs. - Comprehensive metabolic panel - Hemoglobin A1c - Lipid panel 7. Iron deficiency anemia due to chronic blood loss This is a chronic medical condition that is stable since last assessment. Will continue to monitor with routine labs. - CBC and differential - Iron + transferrin + TIBC - Ferritin 8. Other thrombophilia ([facility]) This is a chronic medical condition that is stable since last assessment. Will continue to monitor with routine labs. - CBC and differential 9. Mixed hyperlipidemia This is a chronic medical condition that is stable since last assessment. No medication at this time. Will monitor with routine labs. - CBC and differential - Comprehensive metabolic panel - Lipid panel 10. Skin irritation Noting improvement with Keren. Continue to apply Carmex or Blistex daily. Contact office if worsens. - fexofenadine (Keren) 60 MG tablet; Take 60 mg by mouth in the morning and 60 mg before bedtime. 11. Moderate persistent asthmatic bronchitis without complication ([facility]) This is a chronic medical condition that is stable since last assessment. No current treatment needed. 12. Decreased estrogen level This is a chronic medical condition that is stable since last assessment. Will continue to monitor with routine preventative screenings. 13. Recurrent major depressive disorder, in full remission Much improved with the increase in Cymbalta. Will continue current dosage and continue to monitor. 14. Fibromyalgia Much improved with the increase in Cymbalta. Will continue current dosage and continue to monitor. 15. Adjustment disorder in remission Much improved with the increase in Cymbalta. Will continue current dosage and continue to monitor. 16. Biatrial enlargement The patient is seeing a medical secretary receptionist for this condition, treatment is deferred to that specialist. Correspondence from that specialist and any available testing were reviewed during today's visit. 17. Morbid (severe) obesity due to excess calories ([facility]) Patient has lost 4 pounds since her last appointment. Encouraged portion control, decrease simple sugars and carbohydrates, gradually increase activity level. Aim for continued gradual steady weight loss. 18. Myalgia Much improved with the increase in Cymbalta. Will continue current dosage and continue to monitor. 19. Obstructive sleep apnea syndrome Does not currently use a CPAP. Symptoms stable at this time. 20. Primary osteoarthritis of both knees This is a chronic medical condition that is stable since last assessment. No changes in treatment are suggested at this time. Continue Ibuprofen prn. 21. Primary osteoarthritis involving multiple joints This is a chronic medical condition that is stable since last assessment. No changes in treatment are suggested at this time. Continue Ibuprofen prn. 22. Tinnitus of both ears This is a chronic medical condition that is stable since last assessment. Will continue to monitor. 23. Dyspnea on exertion Stable at this time. Following with Cardiology. Will continue to monitor. 24. Body mass index (BMI) 40.0-44.9, adult ([facility]) Encouraged portion control, decrease simple sugars and carbohydrates, gradually increase activity level. Aim for gradual steady weight loss. 25. Atrial septal defect ([facility]) The patient is seeing a medical secretary receptionist for this condition, treatment is deferred to that specialist. Correspondence from that specialist and any available testing were reviewed during today's visit. 26. Nonrheumatic tricuspid valve regurgitation The patient is seeing a medical secretary receptionist for this condition, treatment is deferred to that specialist. Correspondence from that specialist and any available testing were reviewed during today's visit. 27. Age-related osteoporosis without current pathological fracture This is a chronic medical condition that is stable since last assessment. No changes in treatment are suggested at this time. Will continue to monitor with routine DEXA Scans. Continue Calcium supplement. 28. Pulmonary hypertension, unspecified (HCC) The patient is seeing a medical secretary receptionist for this condition, treatment is deferred to that specialist. Correspondence from that specialist and any available testing were reviewed during today's visit. 29. Anticoagulated The patient is seeing a medical secretary receptionist for this condition, treatment is deferred to that specialist. Correspondence from that specialist and any available testing were reviewed during today's visit. Follow up in about 6 months (around 10/15/2025) for Medication Follow Up. Ignacia VELA, JUANIC documented in this encounterDeaconess Incarnate Word Health SystemFpzrjknvms60-93-4937 History of Present illness Narrative* JIMMY Huynh - 02/28/2025 10:30 AM EDT Images from the original note [...] good right now. And the pain specialist startedher on Tylenol #3. Is getting around and doing more, so her legs aren't swelling as much. Refuses Cologuard testing. Cardiology wanted to place her on a different anticoagulant. States they wanted to do an ablation of her heart. States she didn't feel comfortable proceeding with the ablation or different medication. Goes to the Coumadin Clinic at [facility] and they manage her Coumadin [...] by mouth in the morning and 1 capsule(30 mg) before bedtime. Do not crush or [...] continue to follow with Coumadin Clinic at [facility] for medication management and routine [...] patient to have a seat on the rollatorto sit when needed to prevent further falls. Due to current physical limitations, patient cannot safely use a standard cane or walker. Pt is able to safely use a rollator and functional immobility inhome would be resolved by the use of a rollator. The patient has mobility limitations that significantly impair their ability to participate in activities of daily living without the risk of fall. The patient would benefit from this rollator to reasonably complete activities of daily living in an ac ceptable timeframe given current limitations. As the patient is considered a fall risk, the utilization of a rollator would mitigate the risk of morbidity and mortality secondary to the possibility of fall. The patient would benefit from use of a rollator and it would improve functional mobility inregards to the deficit caused by current diagnoses. Patient declines Cologuard testing. States would not do anything even if the testing came back positive. Follow up in about 5 weeks (around 04/05/2025) for Medicare Wellness Visit. documented in this encounterDeaconess Incarnate Word Health [id number] History of Present illness Narrative* JIMMY Huynh - 01/26/2025 10:00 AM EDT [...] for Medication Follow Up. documented in this encounterDeaconess Incarnate Word Health [id number] History of Present illness Narrative* JIMMY Huynh - 09/09/2024 11:00 AM EST Images from the original note were not [...] once in the past, but felt very achyafter the injection, admits she did not drink [...] visit: Age-related osteoporosis without current pathological fracture ([facility]) - denosumab (Prolia) 60 MG/ML solution prefilled [...] (CMS/HCC) The patient is seeing a medical secretary receptionist for this condition, treatment is deferred to that specialist. Correspondence from that specialist and any available testing were reviewed during today's visit. Morbid (severe) obesity due to excess calories (CMS/HCC) - Semaglutide-Weight Management 0.25 MG/0.5ML solution auto-injector; Inject 0.25 mg under the skin1 (one) time per week Discussed weight loss [...] secretion in response to glucose. Also reviewed potentials/e, including but not limited to headache, GI s/e, pancreatitis, gall bladder disease, and impaired kidney function. Advised it is a once-a-week injection. Reviewed where to give the injection, inject into the subcutaneous tissue of the abdomen, avoiding a 1 inch noatak around the belly button. Patient denies any [...] solution auto-injector; Inject 0.25 mg under the skin1 (one) time per week See above. Essential hypertension (CMS/HCC) BP mildly elevated today. Weight loss and increased activity may help overtime. Will monitor. Paroxysmal atrial fibrillation (CMS/HCC) - Semaglutide-Weight Management 0.25 MG/0.5ML solution auto-injector; Inject 0.25 mg under the skin1 (one) time per week The patient is seeing a medical secretary receptionist for this condition, treatment is deferred to that specialist. Correspondence from that specialist and any available testing were reviewed during today's visit. Glucose intolerance Will have patient stop the Metformin at this time. She is starting the Semaglutide and has not perceived benefit from the Metformin. Follow up in about 3 months (around 12/07/2024) for Medication Follow Up. documented in this encounterDeaconess Incarnate Word Health [id number] NoteUT Electrophysiology Consult Note [place] [facility] Reason for visit: Afib HPI: Leslie Lopez is a 73 y.o. year old with past medical history of hypertension, Obesity s/p gastric bypass atrial fibrillation has not been seen by [employer] in the past. She presented to her PCP who thereafter referred to us for establishing care. Her initial diagnosis of A-fib occurred when she was in [place] and was seen in the hospital with food poisoning and was noted to have an EKG that revealed A-fib. Subsequently she was seen by [employer] who placed her on Coumadin but cardioversion [...] once she has s (more content not included)...[facility] 12-02-2022 NoteCONSULTATION CONSULTATION DATE: 12/02/2022 TO: Venecia Colon M.D. and Jess Mendenhall D.O. CHIEF COMPLAINT: [...] our patients to inform us about any lmcq-sfh-xpzjdrc medications or herbal remedies/nutritional supplements/alternative remedies. 2. [...] and treatment options with their primary care provider.[facility] Diagnosis Routine general medical examination at health [...] regurgitation Biatrial enlargement [facility]* Diagnosis Glucose intolerance (impaired glucose tolerance)- Primary [...] glucose tolerance test documented in this encounter [facility]* Diagnosis Glucose intolerance (impaired glucose tolerance)- Primary [...] both knees documented [facility] encounter [facility]* Diagnosis Glucose intolerance (impaired glucose tolerance)- Primary Impaired glucose tolerance test Routine general medical examination at health care facility Routine general medical examination at a [facility] care facility Hyperlipidemia, unspecified hyperlipidemia type Essential [...] both knees documented in [facility]* Diagnosis Glucose intolerance (impaired glucose tolerance)- Primary Impaired glucose tolerance test Routine general medical examination at health care facility Routine general medical examination at a [facility] care facility Hyperlipidemia, unspecified hyperlipidemia type Essential [...] defect Nonrheumatic tricuspid valve regurgitation Biatrial enlargement Medicare annual wellness visit, subsequent- Primary ACP (advance care planning) Other specified counseling Essential hypertension Unspecified essential hypertension Paroxysmal atrial fibrillation (HCC) Atrial fibrillation Localized swelling of both lower legs Glucose intolerance (impaired glucose tolerance) Impaired glucose tolerance test Iron deficiency anemia due to chronic blood loss Iron deficiency anemia secondary to blood loss (chronic) Other thrombophilia (HHS-HCC) Mixed hyperlipidemia Mixed hyperlipidemia Skin irritation Unspecified disorder of skin and subcutaneous tissue Moderate persistent asthmatic bronchitis without complication (HCC) Decreased estrogen level Recurrent major depressive disorder, in full remission Fibromyalgia Unspecified myalgia and myositis Adjustment disorder in remission Biatrial enlargement Morbid (severe) obesity due to excess calories (CMS-HCC) Myalgia Unspecified myalgia and myositis Obstructive sleep apnea syndrome Obstructive sleep apnea (adult) (pediatric) Primary osteoarthritis of both knees Primary osteoarthritis involving multiple joints Tinnitus of both ears Unspecified tinnitus Dyspnea on exertion Other dyspnea and respiratory abnormality Body mass index (BMI) 40.0-44.9, adult (CMS-HCC) Atrial septal defect (HHS-HCC) Ostium secundum type atrial septal defect Nonrheumatic tricuspid valve regurgitation Age-related osteoporosis without current pathological fracture Pulmonary hypertension, unspecified (HCC) Anticoagulated Encounter for long-term (current) use of anticoagulants documented in this encounter [facility]* Diagnosis Glucose intolerance (impaired glucose tolerance)- Primary [...] defect Nonrheumatic tricuspid valve regurgitation Biatrial enlargement Acute eczema- Primary Contact dermatitis and other eczema, due to unspecified cause documented in this encounter [facility] HealthcareHistory of Present illness Narrative* Venecia Colon MD - 04/04/2024 10:30 AM EDT Images from the original note [...] current healthcare providers: Patient Care Team: Venecia Colon MD as PCP - General (Family Medicine) Venecia Colon MD as PCP - [facility] Thursday, [employer] as Licensed Practical Nurse (Family Medicine) Medicare [...] and differential Comprehensive metabolic panel Essential hypertension ([facility]/HCC) Our specific goals, for your hypertension, is [...] panel Lipid panel Atrial septal defect See Blood Tester Fowl in end march Nonrheumatic tricuspid valve regurgitation [...] Expiration Date: 04/04/2025 Electronically signed by Venecia Colon MD on April 04, 2024 * Venecia Colon MD - 04/04/2024 10:27 AM EDTAssociated Problem(s): Biatrial enlargement Sees Cardiology Probably one of the causes of atrial fibrillation * Venecia Cloon MD - 04/04/2024 10:25 AM EDTAssociated Problem(s): Atrial septal defect See Blood Tester Fowl in end march * Venecia Colon MD - 04/04/2024 10:16 AM EDTAssociated Problem(s): Medicare annual wellness visit, subsequent Colonoscopy [...] Ultrasound of Aorta to screen for Anuerysm * Venecia Colon MD - 04/04/2024 10:15 AM EDTAssociated Problem(s): Essential hypertension (CMS/HCC) Our specific goals, [...] prescribed. DASH diet handouts documented in this encounterNODC Healthcare Summary Purpose Family History No Family [...] DATE CREATED AUTHOR 01/14/2018 [facility] DATE CREATED AUTHOR AUTHOR'S ORGANIZ ATION 02/11/2018 [facility] DATE CREATED AUTHOR AUTHOR'S ORGANIZ ATION 02/11/2018 [facility] DATE CREATED AUTHOR AUTHOR'S ORGANIZ ATION 12/18/2021 [facility] [employer] DATE CREATED AUTHOR AUTHOR'S ORGANIZ ATION 01/02/2023 [facility] DATE CREATED AUTHOR AUTHOR'S ORGANIZ ATION 06/19/2024 [facility] DATE CREATED AUTHOR AUTHOR'S ORGANIZ ATION 04/19/2025 [facility] DATE CREATED AUTHOR AUTHOR'S ORGANIZ ATION 05/13/2025 [facility] EPIC Care Teams (unrecognized sec tion and content) Team MemberRelationshipSpecialtyStart DateEnd Date Venecia Colon MD [address] [place] [address] PCP - [facility]12/18/22 eVnecia Colon MD [address] [place] [address] PCP - GeneralFamily Medicine12/02/22Thursday, Yandy, PAINTER [employer]OTTOM [address] [place] [address] Licensed Practical NurseFamily Medicine10/12/23Team MemberRelationshipSpecialty Start DateEnd Date Venecia Colon MD [address] [place] [address] PCP - [facility]12/18/22 Venecia Colon MD [address] [place] [address] PCP - GeneralFamily Medicine12/02/22Thursday, Yandy, PAINTER [employer]OTTOM [address] [place] [address] Licensed Practical NurseFamily Medicine10/12/23Team MemberRelationshipSpecialty Start DateEnd Date Venecia Colon MD [address] [place] [address] PCP - [facility]12/18/22 Venecia Colon MD [address] [place] [address] PCP - GeneralFamily Medicine12/02/22Thursday, NESSA Kebede [address] [place] [address] Licensed Practical NurseFamily Medicine10/12/23Team MemberRelationshipSpecialty Start DateEnd Date Venecia Colon MD [address] [place] [address] PCP - [facility]12/18/22 Venecia Colon MD [address] [place] [address] PCP - GeneralFamily Medicine12/02/22 Estefani Osman, RN Licensed Practical NurseFamily Medicine09/02/24Team MemberRelationshipSpecialty Start DateEnd Date Venecia Colon MD [address] [place] [address] PCP - [facility]12/18/22 Venecia Colon MD [address] [place] [address] PCP - GeneralFamily Medicine12/02/22 Estefani Osman, RN Licensed Practical NurseFamily Medicine09/02/24Team MemberRelationshipSpecialty Start DateEnd Date Venecia Colon MD [address] [place] [address] PCP - [facility]12/18/22 Venecia Colon MD [address] [place] [address] [facility]/02/22 Estefani Osman RN Licensed Practical NurseP[facility]09/02/24Team MemberRelationshipSpecialty Start DateEnd Date Venecia Colon MD [address] [place] [address] PCP - [facility]12/18/22 Venecia Colon MD [address] [place] [address] PCP - [facility]12/02/22 Celeste Chung LPN [address] [place] [address] 10/14/24Team MemberRelationshipSpecialtyStart DateEnd Date Venecia Colon MD [address] [place] [address] PCP - [facility]12/18/22 Venecia Colon MD [address] [place] [address] PCP - [facility]12/02/22 Celeste Chung LPN [address] [place] [address] 10/14/24Team MemberRelationshipSpecialtyStart DateEnd Date Venecia Colon MD [address] [place] [address] PCP - [facility]12/18/22 Venecia Colon MD [address] [place] [address] PCP - GeneralFamily Medicine12/02/22 Celeste Chung LPN [address] [place] [address] 10/14/24Team MemberRelationshipSpecialtyStart DateEnd Date Venecia Colon MD [address] [place] [address] PCP - [facility]12/18/22 Venecia Colon MD [address] [place] [address] [facility] - [facility]12/02/22 Celeste Chung LPN [address] [place] [address] 10/14/24Team MemberRelationshipSpecialtyStart DateEnd Date Venecia Colon MD [address] [place] [address] PCP - [facility]12/18/22 Venecia Colon MD [address] [place] [address] PCP - [facility]mi [facility]12/02/22 Celeste Chung LPN [address] [place] [address] 10/14/24Team MemberRelationshipSpecialtyStart DateEnd Date Venecia Colon MD [address] [place] [address] PCP - [facility]12/18/22 Venecia Colon MD [address] [facility] [address] [place] [address] PCP - GeneralFamily Medicine12/02/22 Celeste Chung LPN [address] [place] [address] 10/14/24Team MemberRelationshipSpecialtyStart DateEnd Date Venecia Colon MD [address] [place] [address] PCP - [facility]12/18/22 Venecia Colon MD [address] [facility] [address] [place] [address] PCP - GeneralFamily Medicine12/02/22 Celeste Chung LPN [address] [facility] [address] [place] [address] 10/14/24 Reason for Visit (unrecogniz ed section and content) ReasonCommentsMedicare Annual Wellness Visit SubsequentReasonCommentschapped lipsStates her lips are painful, swollen, cracking, very red lips. She has used every OTC chap stick she can think of. She has changed her laundry detergent and has not been wearing any perfume to see ifthat was what was causing the issue but it is still there.ReasonCommentsFibromyalgiaPt wants to discuss pain today. ReasonCommentsMed RefillIbuprofen. Would like a script for a walker with a seat. Coagulation DisorderToday 2.3ReasonOnset DateCommentschapped lips05/09/2025 ReasonCommentsMouth LesionsChapped lips FOR RECORDS PERTAINING TO PATIENTS WHO ARE [...] BE BASED ON THE PRIMARY CLINICAL RECORDS. [facility] Psych[facility] HospitalTransera Communications [facility]. provides no warranty or guarantee of the accuracy or completeness of information in this document.
--- NOTE | 2025-05-18 13:12 | PM.CN ---
Consult Note: HPI Data of Consult Patient: known to practice within the last 3 years Consult date: 05/18/25 Requesting Physician: Perla Oreilly NP Primary Care Provider: CASSANDRA KING Consult Narrative Reason for consult: knee pain and FM Narrative: Leslie Mathis a pleasant 74 year old female presents for evaluation and management of chronic bilateral knee and diffuse fibromyalgia. Today rating pain 3/10 in bilateral knees. Patient is on warfarin and is advised not to take NSAIDs, however she continues to use motrin PRN. has been utilizing lyrica 50mg BID, tylenol #3 BID PRN moderate to severe pain with benefit denies side effects. notes improvement in pain from last visit. cc:: CC: Perla Oreilly NP Review of Systems ROS Status of ROS 10 or more systems reviewed and unremarkable except as noted in history and below Musculoskeletal Reports: joint pain PFSH PFSH Medical History (Updated 03/15/25 @ 13:13 by Perla Oreilly NP) Osteoarthritis ?M19.90 - Unspecified osteoarthritis, unspecified site (ICD-10) Anemia ?D64.9 - Anemia, unspecified (ICD-10) Active asthma ?J45.909 - Unspecified asthma, uncomplicated (ICD-10) Heart valve disease ?I38 - Endocarditis, valve unspecified (ICD-10) Hypertension ?I10 - Essential (primary) hypertension (ICD-10) Irregular heart beat ?I49.9 - Cardiac arrhythmia, unspecified (ICD-10) Surgical History S/P gastric bypass ?Z98.84 - Bariatric surgery status (ICD-10) S/P cholecystectomy ?Z90.49 - Acquired absence of other specified parts of digestive tract (ICD-10) H/O: hysterectomy ?Z90.710 - Acquired absence of both cervix and uterus (ICD-10) Family History Other Fibromyalgia Social History Smoking status: Never smoker Meds Home Medications and Allergies Home Medications ?Medication ?Instructions ?Recorded ?Confirmed ?Type ascorbic acid (vitamin C) 500 mg 500 mg PO DAILY 01/01/23 08/02/24 History tablet calcium 100 mg capsule mg PO 01/01/23 History carvedilol 12.5 mg tablet 12.5 mg PO BID 01/01/23 08/02/24 History diltiazem HCl 240 mg capsule,24 240 mg PO DAILY 01/01/23 08/02/24 History hr,extended release furosemide 20 mg tablet (Lasix) 20 mg PO BID 01/01/23 08/02/24 History ibuprofen 800 mg tablet 800 mg PO QDAY 01/01/23 08/02/24 History metaxalone 800 mg tablet 800 mg PO TID 01/01/23 08/02/24 History warfarin 5 mg tablet 5 mg PO DAILY 01/01/23 08/02/24 History duloxetine 30 mg capsule,delayed 30 mg PO .AM 07/16/23 08/02/24 History release (Cymbalta) pregabalin 50 mg capsule (Lyrica) 50 mg PO BID #60 caps 04/14/24 08/02/24 Rx acetaminophen 300 mg-codeine 30 mg 1 tab PO DAILY PRN pain #7 tabs 06/29/24 08/02/24 Rx tablet multivitamin 1 tab PO DAILY 02/02/25 02/02/25 History paroxetine HCl 20 mg tablet mg PO 02/02/25 History potassium chloride 10 mEq meq PO 02/02/25 History tablet,extended release(part/cryst) acetaminophen 300 mg-codeine 30 mg 1 tab PO BID PRN pain #60 tabs 02/09/25 Rx tablet duloxetine 30 mg capsule,delayed See Rx Instructions .Route 03/15/25 Rx release .COMPLEX #90 caps Allergies Allergy/AdvReac Type Severity Reaction Status Date / Time Penicillins Allergy resp Verified 07/12/24 08:28 distress Exam Narrative Exam Narrative: generalized myofascial pain on exam Constitutional Documenting provider has reviewed patient's vital signs: yes Common normals: no apparent distress, oriented x3, healthy appearing, alert and well nourished General appearance: cooperative HENMT Common normals: normocephalic, hearing grossly normal bilaterally and moist oral mucous membranes Head and scalp: normocephalic Eye Common normals: PERRL Pupil: PERRL Neck & C-Spine Common normals: full ROM General: normal visual inspection Chest Common normals: inspection of chest normal Respiratory Common normals: normal respiratory effort, no retractions and no use of accessory muscles Back & Pelvis Other: positive bilateral facet loading Extremity Common normals: no calf tenderness and no pedal edema Right lower extremity: knee joint (enlarged, pain with weight bearing, limited ROM) Left lower extremity: knee joint (enlarged, pain with weight bearing, limited ROM) Neuro Common normals: oriented x3 Sensorium/orientation: alert Motor exam: strength 5/5 throughout and no movement abnormalities noted Psych Common normals: mental status grossly normal, thought process normal, cooperative, affect normal, speech normal and activity/motor behavior normal Speech: normal speech Thought process: normal thought process Results Additional Findings Additional findings: If on a controlled substance or opioids, I have checked an [place]AR[place] report on this patient and there are no aberrancies noted in the prescribing history.??If on a controlled substance or opioid a drug screen was completed and reviewed within the last year, and if there has not been a drug screen completed we ordered one today to monitor higher risk, state monitored pain medication use. As part of providing excellent, safe, comprehensive care, the following was completed at our patient's visit: 1. A medication reconciliation and review to ensure accurate knowledge of current/active medications, including asking our patients to inform us about any gqpy-bzc-ygkrnne medications or herbal remedies/nutritional supplements/alternative remedies. 2. A review to specifically ensure our patients have had annual screening for screening for depression, screening for tobacco use, and screening for unhealthy alcohol use. For concerning screenings had a discussion with the patient, provided patient education, and recommended follow-up with primary care provider when appropriate. If patient noted with a risk of falling, they received education on strength, gait, and balance training to prevent future risk of falling. Portions of this note may have been carried over from the previous visit and updated as appropriate. Please note this office utilizes paper charting in addition to the electronic medical record. A list of current medications, vitals, and PMH is available there as the clinical staff outside of myself do not have access to [facility] charting during the clinic day operations. As part of providing quality comprehensive care the current medications, vitals, and PMH were reviewed in the paper chart. Assessment and Plan Assessment and Plan (1) Knee osteoarthritis: (2) Fibromyalgia: (3) Chronic pain syndrome: (4) Generalized OA: (5) Muscle spasm: (6) Chronic use of opiate drug for therapeutic purpose: Assessment and Plan: I feel these medications are improving the patient's quality of life and allow them to tolerate activities of daily living as well as participate in recreational activity.? The patient does not report intolerable side effects. The patient is NOT opioid naive and non-pharmacologic and non-opioid treatment has failed to significantly relieve the patient's pain and improve functionality. The patient has a diagnosis that is related to a somatic or visceral pain etiology. ? ?? I reviewed with the patient the potential risks and side effects with the use of? opioid medications including but not limited to respiratory depression,? sedation, and even . Within the last 12 months I have verified the patient has access to naloxone should? these effects occur. The patient was advised to let? their family know they had Naloxone in case they would need to administer? the medication. I advised the patient to avoid the use of any other? sedation substances including alcohol, THC, and benzodiazepines while? taking opioid medications due to the risk of compounding side effects and? detrimental outcomes. within the last 12 months I have reviewed the DESK DIRECTOR, pain treatment agreement and urine drug screen.? ?? A drug screen was completed within the last year, and no aberrancies were noted regarding their use of controlled substances. The patient understands they are subject to the terms and conditions of the pain contract that they have signed. ? ?? I have checked an OARRS report on this patient today and there are no aberrancies noted in the prescribing history.? Plan continue tylenol #3 BID PRN moderate to severe pain continue duloxetine 30mg am and 60mg hs continue pregabalin 50mg BID okay to fill duloxetine and pregabalin as 90 day supplies through mail in pharmacy continue HEP as tolerated f/u 2 months, consider repeat genicular RFAs
== END 2025-05-18 12:42 | disposition home or self-care (01) ==
LOC: PM 12:41
PROVIDERS: PCP Family Medicine; Visit Provider Nurse Practitioner
DX: M17.0 Bilateral primary osteoarthritis of knee (principal); M79.10 Myalgia, unspecified site; G89.4 Chronic pain syndrome; Z79.891 Long term (current) use of opiate analgesic
CPT/HCPCS: G0463

== ENCOUNTER 2025-05-27 | Outpatient (RCR) | payer MEDICARE, BC, SELFPAY | END 2025-06-25 23:59 | disposition home or self-care (01) | LOC: MM | PROVIDERS: PCP Family Medicine; Visit Provider Family Medicine | DX: Z51.81 Encounter for therapeutic drug level monitoring (principal); Z79.01 Long term (current) use of anticoagulants; I48.91 Unspecified atrial fibrillation | CPT/HCPCS: 85610; G0463 ==

== ENCOUNTER 2025-06-26 09:38 | Outpatient (RCR) | payer MEDICARE, BC, SELFPAY | END 2025-07-26 12:38 | disposition home or self-care (01) | LOC: MM 09:38 | PROVIDERS: PCP Family Medicine; Visit Provider Family Medicine | DX: Z51.81 Encounter for therapeutic drug level monitoring (principal); Z79.01 Long term (current) use of anticoagulants; I48.91 Unspecified atrial fibrillation ==

== ENCOUNTER 2025-07-13 13:08 | Outpatient (OUT) | payer MEDICARE, BC, SELFPAY ==
--- OUTSIDE RECORDS SUMMARY | 2025-07-13 13:13 | XMS_ITS | Patient Health Record ---
Author Organization [facility] Billing Info Address [address] [place], [place] [id number] Phone [phone] Support Name Relationship Address Phone DelfinaTristan raeice Self - patient is the insured [address] [place] [address] [phone] Allergies Allergen (clinical drug ingredient) Drug/Non Drug Allergy documented on EMR Reaction Allergy Type Onset Date Status PenicillinUnknownDrug AllergyActive Reason For Referral No Information Medications Medication SIG (Take, Route, Frequency, Duration) Notes Start Date End Date Diagnosis (ICD Code) Status Metformin HCl 500 MG Tablet Oral; Duration: 90 ActiveParoxetine HCl 20 MG TabletOral; Duration: 90Active Social History Tobacco Use: Social History Observation Description Date Details (start date - stop date) Never Smoker NA - NA Sex Observation Social History Observation Description Sex Observation Female Social History Social HistorySocial InfoQuestionAnswerNotesTobacco Status:Patient gibson never smokerAlcohol Use:Patientuses alcoholoccasional Plan Of Treatment No Information Insurance Providers Payer Name Payer Address Payer Phone Subscriber Number Group Number Insured Name Patient Relationship to Insured Coverage Start Date Coverage End Date [place] PART [place] [address] [place] JIMMY FIGUEREDO [id number] Yuri Mathiself - patient is the [id number] [facility] [address] [place], [place] [id number], JaniceSelf - patient is the [id number] 2017 Medical (General) History Medical History History ICD Code Diabetes mellitus AnxietySurgical History Surgery Date(Month/Year) cholecystectomy hysterectomyGastric bypassHospitalization History Reason Date(Month/Year) see above
--- OUTSIDE RECORDS SUMMARY | 2025-07-13 13:13 | XMS_ITS | Clinical Summary ---
Author Organization [facility] Address [address] [place] [address] Care Team Providers Care Algorithm Developer Name Role Phone Venecia Vyas MD Primary Care Provider [phone] Allergies Active AllergyReactionsCriticalityNoted AxrtOyzdkhbiNprpcyoekpNtajpyg41/12/2024 Medications MedicationSigDispense QuantityRefillsLast FilledStart DateEnd DateStatus carvedilol [...] DateDiagnosed DatePAF (paroxysmal atrial fibrillation)06/07/2024 Atrial septal hwvndh3704/04/2024 Overview (06/07/2024): Last Assessment & Plan: See [employer] Det[employer]er in end of March Nonrheumatic tricuspid valve kejifzipxemmx64/09/2024ody mass index (BMI) 40.0- 44.9, adult03/07/2024yspnea on byxzhzvu27/12/2024Elevated LDL cholesterol level 03/07/2024Localized swelling of both lower legs03/07/2024Neoplasm of uncertain behavior of skin of hand03/07/2024Other hjvefdqmlajdn04/12/2024reast screening 03/24/2023 Overview (03/22/2024): Last Assessment & Plan: Mammo ordered Adjustment disorder in zaxenvojw79/31/2023sthmatic bcvhraepyi09/31/2023trial vpdbmkmzibcm47/31/2023 Overview (03/22/2024): Last Assessment & Plan: Watch for bleeding or bruising in bowel or urine. Avoid vitamin K products and supplements. Decreased estrogen level02/23/2023epressive /31/2023Essential pavdovaupyoo50/31/2023 Overview (03/22/2024): Last Assessment & Plan: Our [...] taking them as prescribed. DASH diet handouts Wgmgyreajbqs88/31/2023lucose intolerance (impaired glucose tolerance)02/23/2023 Overview (03/22/2024): Last [...] and importance of healthy diet and exercise. Ynjypgcelwkrhh88/31/2023 Overview (03/22/2024): Last Assessment & Plan: Declines Lipid lowering agent Iron deficiency anemia due to chronic blood loss02/23/2023Left atrial dilatation 02/23/2023Morbid rhwqjxg3602/23/2023 Overview (03/22/2024): Last Assessment & Plan: Weight loss encouraged Nogfmzl7902/23/2023Obstructive sleep apnea bwuhplop68/31/2023Osteoarthritis of both knees02/23/2023Other osteoporosis without current pathological fracture 02/23/2023rimary baeksgdpogzqsr19/31/2023Tinnitus of both ears02/23/2023 Family History Medical HistoryRelationNameCommentsNo Known ProblemsFatherNo Known Problems MotherRelationNameStatusCommentsFatherMother Social History Tobacco UseTypesPacks/DayYears UsedDateSmoking Tobacco: NeverSmokeless Tobacco: NeverAlcohol UseStandard Drinks/WeekCommentsNot Currently0 (1 standard drink = 0.6 oz pure alcohol)CommentsUnknownSex and Gender InformationValueDate RecordedSex Assigned at BirthNot on fileLegal EapBcsqhq17/29/2022 10:04 PM EDT Gender IdentityNot on fileSexual OrientationNot on file Last Filed Vital Signs Vital SignReadingTime TakenCommentsBlood Jnsaqoby445/9806/07/2024 3:06 PM EST Agujc332206/07/2024 3:06 PM ESTTemperature--Respiratory Rate--Oxygen Erwpuixbny34% 06/07/2024 3:06 PM ESTInhaled Oxygen Concentration--Bicppd775 kg (265 lb) 06/07/2024 3:06 PM RURQquzms727.1 cm (5' 5 )06/07/2024 3:06 PM ESTBody Mass Index44. 3:06 PM EST Plan of Treatment Health MaintenanceDue DateLast DoneCommentsCT Pywaklqdqmgq97/13/1952Colonoscopy 2Colorectal Cancer Plfyeyywc54/13/1952FIT-DNA1951FIT1950 FOBT1950Medicare Annual Wellness (AWV)11/07/19512223Aqedhzsqymtgh15/13/1951 Depression Cfxmpuwup10/13/1964Zoster Vaccines (1 of 2)11/06/2001Fall Risk Wbcgfiyvb43/13/8970Geuhujafg86/15/202406/OVID-19 Vaccine ( season)5008/14/2021, 10/10/2020, 09/19/2020Influenza Vaccine (#1) 5109/21/2023, 05/18/2023, 06/11/2022, Additional history existsAdult Tjhtfoz58, 07/08/2016, 10/05/2009Pneumococcal Vaccine: 50+ NqoxpSghdomcfc40/15/2019, 04/14/2019, 03/22/2018HIB VaccinesAged OutNo longer eligible based [...] Mathis TypeRelation to PatientDate of BirthPhone Billing AddressPersonal/LiylgsSysx86/13/1951 [address] [id number] Care Teams Team MemberRelationshipSpecialtyStart DateEnd Date Venecia Vyas MD [address] [facility] [address] [place] [address] PCP - GeneralInternal Wwrkkago73/7/24
--- OUTSIDE RECORDS SUMMARY | 2025-07-13 13:13 | XMS_ITS | Clinical Summary ---
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 Name Role Phone Venecia King MD Unavailable Venecia King MD Primary Care Provider [phone] Celeste Chung LPN Unavailable Allergies Active AllergyReactionsCriticalityNoted DateCommentsMilnacipran HclOther 3Penicillin GShortness of mpbofcRaot51/25/2023SemaglutideHeadacheLow 01/26/2025 Medications MedicationSigDispense QuantityRefillsLast FilledStart DateEnd DateStatus meclizine (Antivert) 25 MG tablet Take 25 mg by mouth 3 (three) times a day as needed for dizzinessActive MAGNESIUM GLYCINATE ADVANCED PO Take 1 tablet by mouth DailyActive CALCIUM MAGNESIUM ZINC PO Take 1 tablet by mouth DailyActive PARoxetine (Paxil) 20 MG tablet Indications:Depressive disorderTAKE [...] typeTAKE 1 TABLET TWICE DAILY 180 tablet 5Active acetaminophen-codeine (Tylenol w/ Codeine #3) 300-30 MG tablet Take 1 tablet by mouth every 6 (six) hours if needed for severe painActive ibuprofen 800 MG tablet Indications:FibromyalgiaTake 1 tablet (800 mg) by mouth every 8 (eight) hours if needed for moderate pain Take with food 90 tablet 5085Active carvedilol (Coreg) 12.5 MG tablet Indications:Essential hypertensionTAKE [...] TABLETS ON SUNDAYS AND WEDNESDAYS 120 tablet 3105Active metaxalone (Skelaxin) 800 MG tablet Indications:Chronic low back pain without sciatica, unspecified back pain lateralityTAKE 1 TABLET BY MOUTH IN THE MORNING, IN THE EVENING AND BEFORE BEDTIME 90 tablet 3115Active Active Problems ProblemNoted DateDiagnosed DateAcute axrxku3605/11/2025 Assessment & Plan (05/11/2025 2:54 PM EDT): Add over the counter HC I discussed with patient that while on prednisone, do not take any NSAIDs like Ibuprofen, Naprosyn,Alleve or motrin. Watch for any side effects like abdominal pain and nausea. Take the prednisone with food or milk. Prednisone may increase appetite. While on prednisone, watch for any sugar elevations. Qhqqwaoeivamcu40/05/2025ge-related osteoporosis without current pathological /14/2025Pulmonary hypertension, zhkmmfmhkdi86/14/2025Paroxysmal atrial /12/2024trial septal defect (HHS-HCC)04/04/2024 Assessment & Plan (04/04/2024 10:25 AM EDT): See Geophysicist in end of March Nonrheumatic tricuspid valve nqnakmmxeswzu70/09/2024yspnea on exertion 03/07/2024Localized swelling of both lower legs03/07/2024ody mass index (BMI) 40.0-44.9, adult03/07/2024Other thrombophilia ([facility])03/07/2024djustment disorder in uyabuaxly54/31/2023sthmatic /31/2023ecreased estrogen level02/23/2023epressive /31/2023Essential /31/2023 Assessment & Plan (04/04/2024 10:15 AM EDT): [...] the importance of taking them as prescribed. CH4e handouts Assessment & Plan (10/20/2023 11:32 AM [...] taking them as prescribed. DASH diet handouts Buulhdmthtql50/31/2023lucose intolerance (impaired glucose tolerance)02/23/2023 Assessment & Plan [...] and importance of healthy diet and exercise. Ktzvclszymulxu08/31/2023 Assessment & Plan (03/24/2023 3:56 PM EDT): Declines Lipid lowering agent Iron deficiency anemia due to chronic blood loss02/23/2023iatrial enlargement 02/23/2023 Assessment & Plan (04/04/2024 10:27 AM EDT): Sees Cardiology Probably one of the causes of atrial fibrillation Morbid (severe) obesity due to excess /31/2023 Assessment & Plan (10/20/2023 11:30 AM EDT): Weight loss encouraged Vvjcufq5102/23/2023Obstructive sleep apnea xbqlbosw53/31/2023Osteoarthritis of both knees02/23/2023rimary obujdfkbclgggv20/31/2023Tinnitus of both ears 02/23/2023 Resolved Problems ProblemNoted DateDiagnosed DateResolved DateNeoplasm of uncertain behavior of skin of handElevated LDL cholesterol level03/07/2024 04/17/2025reast eywiwggun36 Assessment & Plan (03/24/2023 3:55 PM EDT): Mammo ordered Medicare annual wellness visit, nzlgrjwtyx42/29/202302/ Assessment & Plan (04/04/2024 10:16 AM EDT): [...] for Anuerysm Other osteoporosis without current pathological watdmzyi48/ Osteoarthritis of knee Encounters DateTypeDepartmentCare HwhnBswbtkkbitm48/05/2025Patient Outreach [facility] [address] [place] [phone] Celeste Chung LPN 06/26/2025bstract [facility] [address] [facility] [address] [place] [address] Venecia King MD 06/02/2025Refill [facility] [address] [facility] [address] [place] [address] Venecia King MD Chronic low back pain without sciatica, unspecified back pain laterality 05/31/2025bstract [facility] [address] [place] [address] [place] [address] Venecia King MD 05/11/2025 2:30 PM EDTOffice Visit [facility] [address] [place] [address] [place] [address] Venecia King MD Acute eczema (Primary Dx)05/11/20255608Ynfoht84/16/2025Refill [facility] [address] [place] [address] [place] [address] Venecia King MD Longstanding persistent atrial fibrillation (HCC)05/09/2025Telephone [facility] [address] [address] [place] [address] Venecia King MD [facility] [place] lips05/03/2025bstract [facility] [address] [place] [place] [address] Venecia King MD 04/26/2025Telephone [facility] [address] [place] [address] Venecia King MD 04/25/2025bstract [facility] [address] [place] [address] Venecia King MD 04/20/2025bstract [facility] [address] [place] [address] Venecia King MD 04/18/2025bstract [facility] [address] [place] [place] [address] Venecia King MD 04/18/2025Telephone [facility] [address] [place] [address] Ignacia Felipe, PA Lorblkg2904/17/2025 10:30 AM EDTOffice Visit [facility] [address] [place] [address] Ignacia Felipe PA Medicare annual wellness visit, subsequent (Primary Dx); ACP (advance care planning); Essential hypertension ; Paroxysmal atrial fibrillation (HCC); Localized swelling of both lower legs; Glucose intolerance (impaired glucose tolerance); Iron deficiency anemia due to chronic blood loss; 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); Mixed hyperlipidemia ; Skin irritation; Moderate persistent asthmatic bronchitis without complication (HCC); Decreased estrogen level; Recurrent major depressive disorder, in full remission ; Fibromyalgia; Adjustment disorder in remission ; Biatrial enlargement; Morbid (severe) obesity due to excess calories ([facility]-HCC); Myalgia; Obstructive sleep apnea syndrome; Primary osteoarthritis of both knees; Primary osteoarthritis involving multiple joints; Tinnitus of both ears; Dyspnea on exertion; Body mass index (BMI) 40.0-44.9, adult (CMS-HCC); Atrial septal defect (HHS-HCC); Nonrheumatic tricuspid valve regurgitation; Age-related osteoporosis without current pathological fracture ; Pulmonary hypertension, unspecified (HCC); Sgoocyktezytsy49/22/2025amboo flowsheet [facility] [address] [facility] [address] [place] [address] Ignacia Felipe PA 04/17/2025Travelfrom Last 3 Months Immunizations ImmunizationAdministration DatesNext DueInfluenza, High Dose Seasonal, Preservative Free07/21/2024,05/05/2021,05/10/2019,03/22/2018,06/03/2017 Influenza, High-dose Seasonal, Quadrivalent, Preservative Free05/05/2021 Influenza, Seasonal, Quadrivalent, Micclczhru50/23/2023,06/11/2022,05/27/2020 Influenza, seasonal, injectable, preservative free05/08/2015Influenza, seasonal, intradermal, preservative free05/29/2016Pneumococcal Conjugate PCV 13003/22/2018 Pneumococcal Polysaccharide RTSX7362,04/14/2019TD (adult), 2 Lf tetanus toxoid, preservative free, evquuwld05/12/0690Unpk26/19/2019,07/08/2016 Family History Medical HistoryRelationNameCommentsCancerMotherHeart diseaseMotherMental illness MotherDiabetesSiblingHypertensionSiblingRelationNameStatusCommentsFatherDeceased MotherDeceasedSibling Social History Tobacco UseTypesPacks/DayYears UsedDateSmoking Tobacco: NeverSmokeless Tobacco: Never Tobacco Cessation:Counseling Given: Not Answered Alcohol UseStandard Drinks/WeekCommentsNever0 (1 standard drink = 0.6 oz pure alcohol)caffeine: chocolate, coffee,soda,ueiT5114 Health LiteracyAnswerDate RecordedHow often do you need [...] otherwise physically hurt by your partner or ex-partner?10/14/2023Within the last year, have you been raped or forced to have any kind of sexual activity by your part ner or ex-partner?10/14/2023Social Connection and Isolation PanelAnswerDate RecordedIn a typical week, how many times do you talk on the phone with family, friends, or neighbors?More than three times a week10/14/2023How often do you get together with friends or relatives?Three times a week10/14/2023How often do you attend baptism or sikh services?1 to 4 times per year10/14/2023o you belong to any clubs or organizations such as baptism groups, unions, fraternal or athletic groups, or school groups?No10/14/2023How often do you attend meetings of the clubs or organizations you belong to?Never10/14/2023re you , , , , never , or living with a partner?Never djyxpao3910/14/2023UDIT-CAnswerDate RecordedQ1: How often do you have a [...] hard at all10/14/2023HQ-2AnswerDate RecordedPatient Health Questionnaire-2 Score0 05/11/2025[facility] [place] [facility] - Occupational Stress QuestionnaireAnswerDate [...] steady place to sleep or [facility] (including now)?No4CommentsUnknown Sex and Gender InformationValueDate RecordedSex Assigned at BirthNot on file Legal KdsGmjmlg97/15/2023 6:42 PM EDTGender IdentityNot on fileSexual OrientationNot on file Last Filed Vital Signs Vital SignReadingTime TakenCommentsBlood Awnwvjqs674/7810 2:30 PM EDT Fwkgl327805/11/2025 2:30 PM EDTTemperature--Respiratory Wobu194204/17/2025 10:30 AM EDTOxygen Iplflphxmg54%05/11/2025 2:30 PM EDTInhaled Oxygen Concentration-- Lbchvy027 kg (270 lb)05/11/2025 2:30 PM RKDWbmjui068.1 cm (5' 5 )05/11/2025 2:30 PM EDTBody Mass Index44.9305/11/2025 2:30 PM EDT Plan of Treatment Health MaintenanceDue DateLast DoneCommentsCT Hfinvkyescbk53/13/1951Colonoscopy 1950FIT1950FOBT11/07/19517676Wlptgylvcbrdv59/13/1951FIT-DNA12/31/2024 12/31/2021, 12/31/2021, 10/19/2018, Additional history existsCOVID-19 Vaccine ( season)501/, 10/10/2020, 09/19/2020Influenza Vaccine (#1), 05/18/2023, 06/11/2022, Additional history exists Diabetes: Hemoglobin A1C/, 01/26/2025, 10/20/2023, Additional history existsColorectal Cancer Esnlgommi99/03/2026Postponed from 1950 (Patient Refused)Diabetes: Urine Protein Rebkdjevn99/11/2024, 10/20/20239773Zsmjjvswf05/05/202609/04/2024, 04/21/2023, 04/01/2023, Additional history existsPostponed from 04/05/2025 (Patient Refused)Medicare Annual Wellness (AWV), 04/04/2024, 03/24/2023, Additional history existsDiabetes: Retinopathy Dxuzvvayw58/25/40824404/20/2025Pneumococcal Vaccine: 65+ OekchNgkizkkjh90/15/2019, 04/14/2019, 03/22/2018 Procedures Procedure NamePriorityDate/TimeAssociated DiagnosisCommentsDIABETIC RETINOPATHY SCREENING - OU - BOTH FQDVBaumooq18/25/2025 8:51 AM EDT IRON + TRANSFERRIN + GGSTUjpkwxk05/22/2025 10:51 AM EDT Medicare annual wellness visit, subsequent Iron deficiency anemia due to chronic blood loss LIPID CPHWTWpyeenp79/22/2025 10:51 AM EDT Medicare annual wellness visit, subsequent Essential hypertension Paroxysmal atrial fibrillation (HCC) Glucose intolerance (impaired glucose tolerance) Mixed hyperlipidemia HEMOGLOBIN J9MFoetdih62/22/2025 10:51 AM EDT Medicare annual wellness visit, subsequent Glucose intolerance (impaired glucose tolerance) COMPREHENSIVE METABOLIC WUXAWKhrrqpw56/22/2025 10:51 AM EDT Medicare annual wellness visit, subsequent Essential hypertension Paroxysmal atrial fibrillation (HCC) Localized swelling of both lower legs Glucose intolerance (impaired glucose tolerance) Mixed hyperlipidemia CBC (INCLUDES DIFF/PLT)Pboehsb9504/17/2025 10:51 AM EDT Medicare annual wellness visit, subsequent Essential hypertension Paroxysmal atrial fibrillation (HCC) Localized swelling of both lower legs Iron deficiency anemia due to chronic blood loss Other thrombophilia (HHS-HCC) Mixed hyperlipidemia MICROALBUMIN / CREATININE URINE XZXDINkspzpk33/05/2025 1:39 PM EDT Glucose intolerance (impaired glucose tolerance) MM TOMOSYNTHESIS SCREENING BI04/05/2024 5:14 PM EDT LAB COLOGUARD?? COLON CANCER WZYVBKOlsjkah85/07/2022 from Last 3 Months or Most Recently [...] SignatureIRON, TOTAL 6045 - 160 mcg/dLQUESTIRON BINDING GYPRAKQP408158 - 450 mcg/dL (calc)QUEST% DOAJRDKWCF98(L)16 - 45 % (calc)CIISKHVSPZORX6624 - 288 ng/mLQUESTSpecimen (Source)Anatomical Location / LateralityCollection Method / VolumeCollection TimeReceived LlgzFhoix77/22/2025 10:51 AM EDT04/17/2025 10:51 AM EDT Narrative [facility]ST - 04/18/2025 10:10 AM EDT FASTING:YES FASTING: YES Resulting Agency Comment Performing Organization Information ?Site ID: QPT ?Name: [facility] ?Address: [address] [place] [phone] ?Director: Steve Chávez MD Authorizing ProviderResult TypeResult StatusIgnacia Felipe PAL BLOOD ORDERABLESFinal ResultPerforming OrganizationAddressCity/State/ZIP CodePhone Number [facility]ST * (ABNORMAL) CBC and differential (04/17/2025 10:51 AM EDT)ComponentValueRef RangeTest MethodAnalysis TimePerformed AtPathologist SignatureWHITE BLOOD CELL COUNT5.23.8 - 10.8 Thousand/uLQUESTRED BLOOD CELL COUNT4.303.80 - 5.10 Million/qQXCLVJLSVLQCMETP64.011.7 - 15.5 g/gIZLUZYGQHZOFXXXU61.435.0 - 45.0 % BEUDSHHB59.380.0 - 100.0 qFXMLKXBPH78.927.0 - 33.0 mrXAZHXBLFS55.3(L)32.0 - 36.0 g/dLQUESTComment: For adults, a slight decrease in the calculated MCHC value (in the range of 30 to 32 g/dL) is most likely not clinically significant; however, it should be interpreted with caution in correlation with other red cell parameters and the patient's clinical condition. RDW14.111.0 - 15.0 %QUESTPLATELET YODWI897737 - 400 Thousand/bCCEPZMWCR69.97.5 - 12.5 fLQUESTABSOLUTE NEUTROPHILS3,4061,500 - 7,800 cells/uLQUESTABSOLUTE MJKTIQUNQJR568269 - 3,900 cells/uLQUESTABSOLUTE HPSQKBFWL030901 - 950 cells/uL QUESTABSOLUTE MTGRHHWWSUK80074 - 500 cells/uLQUESTABSOLUTE LCSMAXBNP029 - 200 cells/gQDETXAQJRJHFPYFNL49.5%MJYIKBUFQWJFSQVU98.6%QEJIKLPPKCOEPC66.1%QUEST EOSINOPHILS6.0%QUESTBASOPHILS0.8%QUESTSpecimen (Source)Anatomical Location / LateralityCollection Method / VolumeCollection TimeReceived TimeBloodVenous blood specimen / Rypujgl4904/17/2025 10:51 AM EDT04/17/2025 10:51 AM EDT Narrative [facility] - 04/18/2025 10:10 AM EDT FASTING:YES FASTING: YES Resulting Agency Comment Performing Organization Information ?Site ID: QPT ?Name: [facility] ?Address: [address] [place] [phone] ?Director: Steve Chávez MD Authorizing ProviderResult TypeResult StatusIgnacia Felipe [facility] BLOOD ORDERABLESFinal ResultPerforming OrganizationAddressCity/State/ZIP CodePhone Number QUEST [...] Volume Collection TimeReceived TimeBloodVenous blood specimen / Fzeuxmj7904/17/2025 10:51 AM EDT04/17/2025 10:51 AM EDT Narrative [facility] - 04/18/2025 10:10 AM EDT FASTING:YES FASTING: YES Resulting Agency Comment Performing Organization Information ?Site ID: QPT ?Name: [facility] ?Address: [address] [place] [address], [address] [place] [phone] ?Director: Steve Chávez MD Authorizing ProviderResult TypeResult StatusIgnacia Felipe PAL BLOOD ORDERABLESFinal ResultPerforming OrganizationAddressCity/State/ZIP CodePhone Number QUEST * Lipid panel (04/17/2025 10:51 AM EDT)ComponentValueRef RangeTest Method Analysis TimePerformed AtPathologist SignatureCHOLESTEROL, AYBKO172<200 mg/dL QUESTHDL ZVRPLNCUKOX56> OR = 50 mg/jKJMZAVXUDRQBKXSMXAX71<150 mg/dLQUESTLDL EGISMIAIBSS31sh/dL (calc)QUESTComment: Reference range: <100 Desirable range <100 mg/dL for primary prevention; <70 mg/dL for patients with CHD or diabetic patients with > or = 2 CHD risk factors. LDL-C is now calculated using the Vitaliy-Jerome calculation, which is a validated novel method providing better accuracy than the Friedewald equation in the estimation of LDL-C. Vitaliy WILLARD et al. BRIELLE. 2013;310(19): 3179-9041 (http://education.Aureliants.com/faq/PTE013) CHOL/HDLC RATIO2.9<5.0 (calc)QUESTNON HDL POHGEATPFWN948<130 mg/dL (calc)QUEST Comment: For patients with diabetes plus 1 major ASCVD risk factor, treating to a non-HDL-C goal of <100 mg/dL (LDL-C of <70 mg/dL) is considered a therapeutic option. Specimen (Source)Anatomical Location / LateralityCollection Method / Volume Collection TimeReceived TimeBloodVenous blood specimen / Jccuglf1704/17/2025 10:51 AM EDT04/17/2025 10:51 AM EDT Narrative [facility] - 04/18/2025 10:10 AM EDT FASTING:YES FASTING: YES Resulting Agency Comment Performing Organization Information ?Site ID: QPT ?Name: [facility] ?Address: [address] [place] [address], [address] [place] [phone] ?Director: Steve Chávez MD Authorizing ProviderResult TypeResult StatusIgnacia Felipe PALAB BLOOD ORDERABLESFinal ResultPerforming OrganizationAddressCity/State/ZIP CodePhone Number QUEST * Comprehensive metabolic panel (04/17/2025 10:51 AM EDT)ComponentValueRef Range Test MethodAnalysis TimePerformed AtPathologist HllnprsyuPspsuxx7803 - 99 mg/dLQUESTComment: ? Fasting reference interval DBP596 - 25 mg/dLQUESTCreatinine0.710.60 - 1.00 mg/aGJOVZXTUYM81> OR = 60 mL/min/1.87t3NCNQPZCQ/CREATININE RATIOSEE NOTE: (calc)QUESTComment: ?? Not Reported: BUN and Creatinine are within ?? reference range. ? Hvdzmo553655 - 146 mmol/LQUESTPotassium, Bld4.73.5 - 5.3 mmol/RXRFXIZqduxyip861 98 - 110 mmol/LQUESTCarbon Vlflctg2365 - 32 mmol/LQUESTCalcium9.18.6 - 10.4 mg/dLQUESTPROTEIN, TOTAL6.66.1 - 8.1 g/dLQUESTALBUMIN4.33.6 - 5.1 g/dLQUEST GLOBULIN2.31.9 - 3.7 g/dL (calc)QUESTALBUMIN/GLOBULIN RATIO1.91.0 - 2.5 (calc) QUESTBILIRUBIN, TOTAL0.70.2 - 1.2 mg/dLQUESTALKALINE XCVDITSRUGA6301 - 153 U/L DIMBPONQ2331 - 35 U/YFGZJEYWR695 - 29 U/LQUESTSpecimen (Source)Anatomical Location / LateralityCollection Method / VolumeCollection TimeReceived TimeBlood Venous blood specimen / Wzpgwhy4204/17/2025 10:51 AM EDT04/17/2025 10:51 AM EDT Narrative [facility] - 04/18/2025 10:10 AM EDT FASTING:YES FASTING: YES Resulting Agency Comment Performing Organization Information ?Site ID: QPT ?Name: [facility] ?Address: [address] [place] [address], [address] [place] [address] ?Director: Steve Chávez MD Authorizing ProviderResult TypeResult Didier Berman Hemviktoria PALAB BLOOD ORDERABLESFinal ResultPerforming OrganizationAddressCity/State/ZIP CodePhone Number [facility] * (ABNORMAL) Microalbumin / [...] specimen obtained by clean catch procedure / Miyyzjm8502/28/2025 1:39 PM EDT02/28/2025 1:40 PM EDT Narrative Resulting Agency Comment Performing Organization Information ?Site ID: QPT ?Name: [facility] ?Address: [address] [place] [address], [address] [place] [phone] ?Director: Steve Chávez MD Authorizing ProviderResult TypeResult StatusIgnacia Felipe PALAB URINE ORDERABLESFinal ResultPerforming OrganizationAddressCity/State/ZIP CodePhone Number [facility]ST * MM TOMOSYNTHESIS SCREENING BI (04/05/2024 5:14 PM EDT)Anatomical Region LateralityModalityOtherSpecimen (Source)Anatomical Location / Laterality Collection Method / VolumeCollection TimeReceived Time04/05/2024 5:14 PM EDT Narrative 04/05/2024 5:15 PM EDT [facility] ?[address] ? [place] [address] ? Mammography Report ? Signed ? Patient: JESSICA,LESLIE R ?MR#: [id number] ?? : 1950 ?Acct:[id number] ?? Age/Sex: 73 / F ?ADM Date: 04/05/24 ?? Loc: MAMMO ? Attending Dr: IGNACIA FELIPE ? Ordering Physician: IGNACIA FELIPE ? Results: ? Date of Service: 04/05/24 ?Follow Up: ? Procedure(s): MM tomosynthesis screening BI ?? Accession Number(s): [id number] ? cc: VENECIA KING ; IGNACIA FELIPE ? Patient Name: ? LESLIE JESSICA ? MR#: [id number] ? : 1950 ? Exam Date: 04/05/2024 [...] at age ??81. ? LOCATION: ? [facility] ? BREAST COMPOSITION: ? There are scattered [...] ?04/05/241714 ? DD/ 13 ? TD/TT: ? Medical Case Manager: Procedure Note Radiology, Radiologist, MD - 04/05/2024 [place] [address] Mammography Report Signed Patient: LESLIE LOPEZ RMR#: [id number] : 1950cct:[id number] Age/Sex: 73 / FADM Date: 04/05/24 Loc: MAMMO Attending Dr: IGNACIA FELIPE Ordering Physician: IGNACIA FELIPE MResults: Date of Service: 04/05/24Follow Up: Procedure(s): MM tomosynthesis screening BI Accession Number(s): [id number] cc: VENECIA KING ; IGNACIA FELIPE Patient Name: LESLIE LOPEZ MR#: [id number] : 1950 Exam Date: 04/05/2024 Ordering Doctor: DR IGNACIA FELIPE PA RADIOLOGY REPORT PROCEDURE: MM TOMOSYNTHESIS SCREENING BI COMPARISON: MM TOMOSYNTHESIS SCREENING BI, 04/01/2023. MG MAMM UFPYVL1T JACQUELINE CAD, 01/08/2022. MG MAMM SCREEN 3D JACQUELINE CAD, 10/09/2020. MG MAMM BILSCRN W CAD DIG, 10/19/2013. INDICATIONS: Screening Calculator Name NCI Breast Cancer Risk Assessment Tool 5 Year Breast Cancer Risk 3.80% Lifetime Breast Cancer Risk 9.70% Personal Breast Cancer No Personal Ovarian Cancer No Treatments None Family Cancers Mother with breast cancer at age 80. LOCATION: [facility] BREAST COMPOSITION: There are scattered areas of [...] PALPABLE LUMP SHOULD BE BIOPSIED. Dictated by: Jsaper Hoffmann M.D. on 04/05/2024 at 17:06 Approved by: Jasper Hoffmann M.D. on 04/05/2024 at 17:13 Dictated By: Jasper Hoffmann M.D. Signed By:04/05/241714 DD/ 13 TD/TT: Medical Case Manager: Authorizing ProviderResult TypeResult StatusKaren M Hemmer [facility] Final Result * Cologuard?? [...] (Ora Tolentino al, N Engl J Med 2014;370(14):6831-4362) The normal value (reference range) for this assay is negative. COLOGUARD RE-SCREENING RECOMMENDATION: Periodic colorectal cancer screening is an important part ofpreventive healthcare for asymptomatic individuals at average risk for colorectal cancer. ??Following a negative Cologuard result, the [employer] Cancer Society and U.S. Multi-Society Task Force screening guidelines recommend a Cologuard re-screening interval of 3 years. References: [employer] Cancer Society Guideline for Colorectal Cancer Screening: https://www.cancer.or g/cancer/kajtk-gfkzvr-kdidsi/cliyqjkhr-evxghhhgy-dtiyzfy/acs-recommendations.htm sandra; Madi TYSON, Natasha MUNIZ, Yesi OlmosK, Colorectal Cancer Screening: Recommendations for Physicians and Patients from the U.S. Multi-Society Task Force on Colorectal Cancer Screening , Am J Gastroenterology 2017; 112:5467-8037. TEST DESCRIPTION: Composite algorithmic analysis of stool [...] Chatman. et al, N Engl J Med 2014;370(14):6318-2404.) Cologuard may produce a false negative or false positive result (no colorectal cancer or precancerous polyp present at colonoscopy follow up). A negative Cologuard test result does not guarantee the absence of CRC or advanced adenoma (pre-cancer). The current Cologuard screening interval is every 3 years. ([employer] Cancer Society and U.S. Multi-Society Task Force). Cologuard performance data in a 10,000 patient pivotal study using colonoscopy as the reference method can be accessed at the following location: www.[employer]/results. Additional description of the Cologuard test process, [...] MemberRelationshipSpecialtyStart DateEnd Date Venecia King MD [address] [address] PCP - ACO Reach12/18/22 Venecia King MD [address] [facility] [address] [place] [address] PCP - GeneralFamily Medicine12/02/22 Celeste Chung LPN [address] [address] 10/14/24
--- OUTSIDE RECORDS SUMMARY | 2025-07-13 13:13 | XMS_ITS | Encounter Summary ---
Author Organization [facility] Healthcare Address [address] [place] [address] [place] [address] Care Team Providers Care Horseradish Maker Name Role Phone Venecia Vyas MD Unavailable Venecia Vyas MD Primary Care Provider [phone] Celeste Chung LPN Unavailable Encounter Details DateTypeDepartmentCare Team (Latest Contact Info)Oedktbpgnvt92/05/2025Patient Outreach [facility] [address] [place] [address] Celeste Chung LPN [address] [facility] [address] [place] [address] Social History Tobacco UseTypesPacks/DayYears UsedDateSmoking Tobacco: NeverSmokeless Tobacco: NeverAlcohol UseStandard Drinks/WeekCommentsNever0 (1 standard drink = 0.6 oz pure alcohol)caffeine: chocolate, coffee,soda,[id number] Health LiteracyAnswerDate RecordedHow often do you need [...] times a week10/14/2023How often do you attend mu-ism or taoist services?1 to 4 times per year10/14/2023o you belong to any clubs or organizations such as mu-ism groups, unions, fra[employer] or athletic groups, or school groups?No10/14/2023How often do you attend meetings of the clubs or organizations you belong to?Never10/14/2023re you , , , , never , or living with a partner?Never llhlvga1610/14/2023UDIT-CAnswerDate RecordedQ1: How often do you have a [...] RecordedPatient Health Questionnaire-2 Score0 05/11/2025[facility] [place] [facility] - Occupational Stress QuestionnaireAnswerDate [...] RecordedSex Assigned at BirthNot on file Legal HheWgkblo76/15/2023 6:42 PM EDTGender IdentityNot on fileSexual OrientationNot on filedocumented as of this encounter Progress Notes * Celeste Chung, NESSA - 06/30/2025 9:54 AM EST Spoke with pt for outreach. Pt states she is doing well. Shares that she is having trouble getting into her Mychart and says she has a message. I look to see if I can find what the message is, but I am unable to find one. I let pt know that I will reset her password and then she can log on. Let pt know that it should prompt her to change her password again after she logs in and if it does not he should change it to a password she picks. Pt voices understanding. Pt asks about if office had heardanything back about her Prolia. She shares it was going to cost $800 with insurance and she did notwant it if it costs that much. Let pt know that I am unaware of any assistance for Prolia shots at this time. [facility] which the pt was to get med through was the place that helped get medication cheaper through [employer]. However they do not have the same assistance they had previously. Pt voices understanding. Denies any other needs or concerns at this time. Encouraged to call if any needs arise. documented in this encounter Plan of Treatment Not on file documented as of this encounter Visit Diagnoses Diagnosis Essential hypertension Unspecified essential hypertension Paroxysmal atrial fibrillation (HCC) Atrial fibrillation documented in this encounter Additional Health Concerns AssessmentNoted TimePHQ-9 Depression Total Score: 10:00 AM EDTA fall risk assessment has been completed for the ifntmpe5310/14/2023 9:55 AM EDT documented as of this encounter Care Teams Team MemberRelationshipSpecialtyStart DateEnd Date Venecia Vyas MD [address] [address] PCP - ACO Reach12/18/22 Venecia Vyas MD [address] [facility] [address] [place] [address] PCP - GeneralFamily Medicine12/02/22 Celeste Chung LPN [address] [facility] [address] [place] [address] 10/14/24documented as of this encounter
--- OUTSIDE RECORDS SUMMARY | 2025-07-13 13:13 | XMS_ITS | Clinical Summary ---
Author Organization [facility] Address [address] [place] [address] Phone Care Team Providers Care Border Guard Name Role Phone Unavailable Primary Care Provider Unavailabl e Social History Tobacco UseTypesPacks/DayYears UsedDateSmoking Tobacco: Never Assessed CommentsUnknownSex and Gender InformationValueDate RecordedSex Assigned at Not on fileLegal BnnNsqyqg86/26/2022 9:27 PM ESTGender IdentityNot on fileSexual OrientationNot on file Plan of Treatment Not on file
--- NOTE | 2025-07-13 13:32 | PM.CN ---
Consult Note: HPI Data of Consult Patient: known to practice within the last 3 years Consult date: 05/18/25 Requesting Physician: Perla Oreilly NP Primary Care Provider: CASSANDRA KING Consult Narrative Reason for consult: knee pain and FM Narrative: Leslie Mathis a pleasant 74 year old female presents for evaluation and management of chronic bilateral knee and diffuse fibromyalgia. Today rating pain 3/10 in bilateral knees. Patient is on warfarin and is advised not to take NSAIDs, however she continues to use motrin PRN. has been utilizing duloxetine 30mg AM/60mg HS, lyrica 50mg BID, tylenol #3 BID PRN moderate to severe pain with benefit denies side effects. notes improvement in pain from last visit. cc:: CC: Perla Oreilly NP Review of Systems ROS Musculoskeletal Reports: back pain and joint pain PFSH PFS Medical History (Updated 03/15/25 @ 13:13 by Perla Oreilly NP) Osteoarthritis ?M19.90 - Unspecified osteoarthritis, unspecified site (ICD-10) Anemia ?D64.9 - Anemia, unspecified (ICD-10) Active asthma ?J45.909 - Unspecified asthma, uncomplicated (ICD-10) Heart valve disease ?I38 - Endocarditis, valve unspecified (ICD-10) Hypertension ?I10 - Essential (primary) hypertension (ICD-10) Irregular heart beat ?I49.9 - Cardiac arrhythmia, unspecified (ICD-10) Surgical History S/P gastric bypass ?Z98.84 - Bariatric surgery status (ICD-10) S/P cholecystectomy ?Z90.49 - Acquired absence of other specified parts of digestive tract (ICD-10) H/O: hysterectomy ?Z90.710 - Acquired absence of both cervix and uterus (ICD-10) Family History Other Fibromyalgia Social History Smoking status: Never smoker Meds Home Medications and Allergies Home Medications ?Medication ?Instructions ?Recorded ?Confirmed ?Type ascorbic acid (vitamin C) 500 mg 500 mg PO DAILY 01/01/23 08/02/24 History tablet calcium 100 mg capsule mg PO 01/01/23 History carvedilol 12.5 mg tablet 12.5 mg PO BID 01/01/23 08/02/24 History diltiazem HCl 240 mg capsule,24 240 mg PO DAILY 01/01/23 08/02/24 History hr,extended release furosemide 20 mg tablet (Lasix) 20 mg PO BID 01/01/23 08/02/24 History ibuprofen 800 mg tablet 800 mg PO QDAY 01/01/23 08/02/24 History metaxalone 800 mg tablet 800 mg PO TID 01/01/23 08/02/24 History warfarin 5 mg tablet 5 mg PO DAILY 01/01/23 08/02/24 History duloxetine 30 mg capsule,delayed 30 mg PO .AM 07/16/23 08/02/24 History release (Cymbalta) pregabalin 50 mg capsule (Lyrica) 50 mg PO BID #60 caps 04/14/24 08/02/24 Rx acetaminophen 300 mg-codeine 30 mg 1 tab PO DAILY PRN pain #7 tabs 06/29/24 08/02/24 Rx tablet multivitamin 1 tab PO DAILY 02/02/25 02/02/25 History paroxetine HCl 20 mg tablet mg PO 02/02/25 History potassium chloride 10 mEq meq PO 02/02/25 History tablet,extended release(part/cryst) acetaminophen 300 mg-codeine 30 mg 1 tab PO BID PRN pain #60 tabs 02/09/25 Rx tablet duloxetine 30 mg capsule,delayed See Rx Instructions .Route 03/15/25 Rx release .COMPLEX #90 caps duloxetine 30 mg capsule,delayed See Rx Instructions .Route 06/29/25 Rx release .COMPLEX #270 caps Allergies Allergy/AdvReac Type Severity Reaction Status Date / Time Penicillins Allergy resp Verified 07/12/24 08:28 distress Exam Narrative Exam Narrative: generalized myofascial pain on exam Constitutional Documenting provider has reviewed patient's vital signs: yes Common normals: no apparent distress, oriented x3 and alert General appearance: cooperative HENMT Common normals: normocephalic, hearing grossly normal bilaterally and moist oral mucous membranes Head and scalp: normocephalic Eye Common normals: PERRL Pupil: PERRL Neck & C-Spine Common normals: full ROM General: normal visual inspection Chest Common normals: inspection of chest normal Respiratory Common normals: normal respiratory effort, no retractions and no use of accessory muscles Back & Pelvis Lumbar spine/lower back: pain with ROM, lumbar spinal tenderness and straight leg raise negative bilaterally Other: positive bilateral facet loading Extremity Common normals: no calf tenderness and no pedal edema Right lower extremity: knee joint (enlarged, pain with weight bearing, limited ROM) Left lower extremity: knee joint (enlarged, pain with weight bearing, limited ROM) Neuro Common normals: oriented x3 Sensorium/orientation: alert Motor exam: strength 5/5 throughout and no movement abnormalities noted Psych Common normals: mental status grossly normal, thought process normal, cooperative, affect normal, speech normal and activity/motor behavior normal Speech: normal speech Thought process: normal thought process Results Additional Findings Additional findings: If on a controlled substance or opioids, I have checked an [place]AR[place] report on this patient and there are no aberrancies noted in the prescribing history.??If on a controlled substance or opioid a drug screen was completed and reviewed within the last year, and if there has not been a drug screen completed we ordered one today to monitor higher risk, state monitored pain medication use. As part of providing excellent, safe, comprehensive care, the following was completed at our patient's visit: 1. A medication reconciliation and review to ensure accurate knowledge of current/active medications, including asking our patients to inform us about any [id number] medications or herbal remedies/nutritional supplements/alternative remedies. 2. A review to specifically ensure our patients have had annual screening for screening for depression, screening for tobacco use, and screening for unhealthy alcohol use. For concerning screenings had a discussion with the patient, provided patient education, and recommended follow-up with primary care provider when appropriate. If patient noted with a risk of falling, they received education on strength, gait, and balance training to prevent future risk of falling. Portions of this note may have been carried over from the previous visit and updated as appropriate. Please note this office utilizes paper charting in addition to the electronic medical record. A list of current medications, vitals, and PMH is available there as the clinical staff outside of myself do not have access to [employer] limited charting during the clinic day operations. As part of providing quality comprehensive care the current medications, vitals, and PMH were reviewed in the paper chart. Assessment and Plan Assessment and Plan (1) Knee osteoarthritis: (2) Fibromyalgia: (3) Chronic pain syndrome: (4) Generalized OA: (5) Muscle spasm: (6) Chronic use of opiate drug for therapeutic purpose: Assessment and Plan: I feel these medications are improving the patient's quality of life and allow them to tolerate activities of daily living as well as participate in recreational activity.? The patient does not report intolerable side effects. The patient is NOT opioid naive and non-pharmacologic and non-opioid treatment has failed to significantly relieve the patient's pain and improve functionality. The patient has a diagnosis that is related to a somatic or visceral pain etiology. ? ?? I reviewed with the patient the potential risks and side effects with the use of? opioid medications including but not limited to respiratory depression,? sedation, and even . Within the last 12 months I have verified the patient has access to naloxone should? these effects occur. The patient was advised to let? their family know they had Naloxone in case they would need to administer? the medication. I advised the patient to avoid the use of any other? sedation substances including alcohol, THC, and benzodiazepines while? taking opioid medications due to the risk of compounding side effects and? detrimental outcomes. within the last 12 months I have reviewed the [employer], pain treatment agreement and urine drug screen.? ?? A drug screen was completed within the last year, and no aberrancies were noted regarding their use of controlled substances. The patient understands they are subject to the terms and conditions of the pain contract that they have signed. ? ?? I have checked an OARRS report on this patient today and there are no aberrancies noted in the prescribing history.? Plan continue tylenol #3 BID PRN moderate to severe pain, update UDS for medication monitoring continue duloxetine 30mg am and 60mg hs continue pregabalin 50mg BID okay to fill duloxetine and pregabalin as 90 day supplies through mail in pharmacy continue HEP as tolerated f/u 3 months, sooner if needed. pain well controlled at this time
== END 2025-07-13 13:09 | disposition home or self-care (01) ==
PROVIDERS: PCP Family Medicine; Visit Provider Nurse Practitioner
DX: M17.0 Bilateral primary osteoarthritis of knee (principal); G89.4 Chronic pain syndrome; M62.838 Other muscle spasm; Z79.891 Long term (current) use of opiate analgesic
CPT/HCPCS: G0463